=== PATIENT | female | born 1970 | race Caucasian/White ===

== ENCOUNTER 2017-09-01 08:10 | Outpatient (RCR) | payer MEDICAID, SELFPAY ==
[2017-08-31 00:41] VITALS: BP 147/84; PULSE 106; RESP 18; TEMP 37.6; BMI 40.7
[2017-09-01 08:15] VITALS: BP 145/95; PULSE 98; RESP 18; TEMP 37.4; BMI 40.7
--- NOTE | 2017-09-01 23:23 | PN.PCM_ITS ---
Type of Wound Date of Service: 09/01/17 Chief Complaint: Nonhealing MRSA ulcer right breast. History of Wound: Surgery 05/02/17 - Incision and drainage right mastectomy MRSA wound infection. Surgery 04/18/17 - Excisional debridement recurrent nonhealing infected MRSA ulcer right breast and compromised skin graft right nipple with completion mastectomy. Wound care - Silver. Operative culture - MRSA. She was placed on Vancomycin IV and has finished it. Fungal cultures showed Rhodotorula species. She was placed on Diflucan and has finished it. Prealbumin from 05/03/17 was 3.4. She takes nutritional supplementation with protein to help the healing process. Today she denies any fever. Her appetite is good. Progress of Wound: Healed. - Physical Exam Vital Signs Temp Pulse Resp BP 99.3 F H 98 18 145/95 H 09/01/17 08:15 09/01/17 08:15 09/01/17 08:15 09/01/17 08:15 General: Alert, Oriented x3 HEENT: PERRLA, EOMI Neck: Supple Lungs: Clear to auscultation Cardiovascular: Regular rate, Regular Rhythm Abdomen: Soft, Non-Distended Skin: Ulcer/ Wound - right breast MRSA ulcer has healed. Has disproportion of reconstructed breasts. Left breast is soft without masses. Wound Measurements and Assessment JEFFERY - Nurse 1 - General Ulcer Measurement Start: 09/01/17 08:14 Freq: Status: Active Protocol: Activity Type Activity Date Activity User E-Sign Co-Sign Detail Recorded Client Recorded Date Recorded By Document 09/01/17 08:15 [id number] 09/01/17 08:17 09/01/17 08:15 Wound Center Nurse 1 [Ulcer Assessment Protocol: JEFFERY.WD.LOC] #1 Right Breast -Combined with other wound No -Current Size (cm) - Length 0 -Current Size (cm) - Width 0 -Current Size (cm) - Depth 0 -Total Square Cm 0 -Date of Last Picture (Recall this 09/01/17 field) -Photo Taken Yes -Epithelialization Large 67-100% -Tunneling No -Undermining/Tunneling No -Circular Undermining No -Classification - Thickness Full Thickness without Exposed Support Structure -Exudate Amt None Present (0 %) -Wound Margin Fibrotic Scar, Thickened Scar -Granulation Amt Large (67-100%) -Granulation Quality [place] -Slough/Fibrin No -Necrosis Amt None Present (0 %) -Structure Exposed None/Limited to Skin Breakdown -Texture (Yovana-wound Skin Appearance) Scarring -Moisture (Yovana-wound Skin Appearance Dry/Scaly ) -Color (Yovana-wound Skin Appearance) No Abnormality -Temperature (Yovana-wound Skin No Abnormality Appearance) (Pt Warm) -Tenderness on Palpation (Yovana-wound No Skin Appearance) -Ulcer Cleansing Rinsed/ Irrigated with Saline -Foul Odor after Cleansing No -Anesthetic Used 5% Lidocaine Gel [Edema Assessment] -Lower Limb Edema Present No - Nurse 2 - General Ulcer Notes Start: 09/01/17 08:14 Freq: Status: Active Protocol: Activity Type Activity Date Activity User E-Sign Co-Sign Detail Recorded Client Recorded Date Recorded By Document 09/01/17 08:35 [id number] 09/01/17 08:36 09/01/17 08:35 Wound Center Nurse 2 [Procedure/Treatment] #1 Right Breast -Correct Patient No -Correct Side, Site, Position No -Correct Procedure No -Procedure Performed No [See Physician Procedure note for Specifics] Pain Scale: 0-10 Numeric [Pain] -Is Patient Pain Free? Yes Lymphatic: - - no axillary adenopathy. Neurological: Cranial nerves II-XII grossly intact Psych/Mental Status: Normal Affect, Appropriate Debridement Note Post-Debridement Measurements/Treatment WC - Nurse 2 - General Ulcer Notes Start: 09/01/17 08:14 Freq: Status: Active Protocol: Activity Type Activity Date Activity User E-Sign Co-Sign Detail Recorded Client Recorded Date Recorded By Document 09/01/17 08:35 [id number] 09/01/17 08:36 09/01/17 08:35 Wound Center Nurse 2 #1 Right Breast -Correct Patient No -Correct Side, Site, Position No -Correct Procedure No -Procedure Performed No Pain Scale: 0-10 Numeric Is Patient Pain Free? Yes Wound debrided: #1 Right breast. Laterality: Right Wound Grade/Stage: 2. No debridement was completed today - The ulcer has healed. Assessment/Plan Assessment: 1. Recurrent MRSA ulcer right breast, healed. 2. Acquired absence right breast. 3. Recurrent infections bilateral breasts. 4. Disproportion reconstructed breasts. 5. Former smoker. 6. MRSA. Plan: The right breast MRSA ulcer has healed. The Vancomycin for MRSA has been stopped. She has finished the Diflucan for the fungal culture showing Rhodotorula species. Prealbumin from 05/03/17 was very low at 3.4. Continue nutritional supplementation with protein to help the healing process. There is no need for a skin graft at this time as the MRSA ulcer has healed. At some point, would like to proceed with further breast reconstruction with placement of a saline tissue business continuity planner on the right. This would then be followed by removal of the business continuity planner with replacement cohesive gel implant as a second procedure after expansion has been completed. Would treat perioperatively and postoperatively with Vancomycin. Since this would entail placement of a foreign body, I would like to make sure her risk of wound healing problems has been minimized. Would consider proceeding with the breast reconstruction surgery in the Spring at the earliest. Ideally I would like to wait 6 months. She is discharged from the Wound Center at this time. Followup office one month to further discuss timing of further breast reconstruction surgery. Patient understands, that if further wound healing develops and further infection develops after further breast reconstruction surgery, then the foreign body business continuity planner and/or implant would need to be removed.
== END 2017-09-28 23:59 ==
LOC: WC 08:10
PROVIDERS: Family Provider Student in an Organized Health Care Education/Training Program; PCP Student in an Organized Health Care Education/Training Program; Visit Provider Surgery
DX: N65.1 Disproportion of reconstructed breast (principal); Z86.14 Personal history of Methicillin resistant Staphylococcus aureus infection; Z87.891 Personal history of nicotine dependence
CPT/HCPCS: 99212; G0463

== ENCOUNTER 2017-12-17 21:39 | Observation (INO) | payer MEDICAID, SELFPAY ==
[2017-12-15 13:25] LABS: Hematocrit 41.4 % (37-47); Hemoglobin 13.1 g/dl (12.0-15.0); Mean Corp Hgb Conc 31.6 g/gl (32-36); Mean Corpuscular Hgb 31.2 pg (27.0-32.0); Mean Corpuscular Volume 98.6 fL (81-99); Mean Platelet Vol. 10.3 fl (6.2-12.0); Platelet Count 292 K/mm3 (150-450); RBC Distribution Width CV 15.1 % (11.6-14.6); RBC Distribution Width SD 53.9 fl (35.1-43.9); White Blood Count 7.1 K/mm3 (4.4-11.0)
[2017-12-15 13:27] LABS: Scan Indicated on CBC? Y/N NO
[2017-12-15 13:47] LABS: Anion Gap 6 (5-15); BUN 10 mg/dL (7-18); BUN/Creat Ratio 13.8 RATIO (10-20); Calcium,Total 8.6 mg/dL (8.5-10.1); Chloride 103 mmol/L (98-107); Creatinine, Serum 0.72 mg/dL (0.55-1.02); EST Glomerular Filtration Rate 92 mL/min (>60); Est Glom Filt Rate - Afr Amer 112 mL/min (>60); Glucose 100 mg/dL (74-106); Potassium 4.1 mmol/L (3.5-5.1); Prealbumin 34.8 mg/dL (20.0-40.0); Sodium Level 140 mmol/L (136-145); Thyroid Stim Hormone (TSH) 1.25 uIU/mL (0.358-3.74)
--- NOTE | 2017-12-15 22:00 | HP.PCM_ITS ---
History and Physical Date of Admission: 12/16/17 HISTORY OF PRESENT ILLNESS 47 year old woman comes in today for further evaluation breast reconstruction after undergoing completion mastectomy right breast in 04/14. She has a history of recurrent breast infections bilaterally. Most recently she had developed MRSA in the right breast. She has had multiple operative drainage procedures both before and after her bilateral breast reduction mammaplasty in 10/15. She denies fever. Her persistent scar pain in the right mastectomy incision area has improved. She denies any trauma. She is anxious to proceed with further breast reconstruction so she can then concentrate on getting back to work. PAST MEDICAL HISTORY: Grave's disease, s/p thyroidectomy complete, 11/2001 hypothyroidism 2001 Ovarian cyst HTN Metabolic syndrome hypertriglyceridemia Obesity Seasonal allergy Breast lump/cyst Anxiety depression Recurrent infected ulcer left breast abscess right breast anemia compromised bilateral breast reduction nipple grafts nonhealing surgical wound right lateral breast and right medial breast and Tzone right breast recurrent infected nonhealing MRSA ulcer right breast MRSA Acquired absence right breast Disproportion reconstructed breasts PAST SURGICAL HISTORY: complete hysterectomy 02/2007 benign reason (ovarian cyst, and dysfunctional uterine bleeding), on HRT for one year after hysterectomy ligation fallopian tube - 2000 complete thyroidectomy due to grave's disease 11/2001 x 2 09/1998, 01/2001 tonsillectomy 12/2003 Gastric bypass due to severe obesity 04/10/10 [place] 158lbs loss. Incisional hernia repair 07/03/10 panniculectomy 04/2013 hernia repair with mesh - 2014 incision and drainage breast abscess - 04/12 and 08/13 surgical preparation left breast with mastotomy, and incision and drainage and excisional debridement recurrent left breast infection ulcer with 3 cm partial secondary wound closure - 11/21/15 excisional debridement nonhealing recurrent infected ulcer left breast at medial periareolar area with complex secondary wound closure - 12/28/15 excisional debridement nonhealing recurrent infected ulcer left breast at medial periareolar area with complex secondary wound closure - 04/04/16 mastotomy right breast with incision and drainage abscess and excision with partial mastectomy - 06/07/16 Bilateral breast reduction mammaplasty with bilateral free nipple graft reconstruction - 10/01/16 Surgical preparation revision right breast reconstruction with excisional debridement nonhealing surgical wounds lateral aspect and medial aspect with secondary wound closure and excisional debridement compromised graft ulceration nipple area and nonhealing surgical wound Tzone area with FTSG from right lateral breast (25 cm2) - 11/21/16 Surgical preparation right breast with incison and drainage and excisional debridement nonhealing infected nipple graft ulcer (63 cm2) - 01/10/17 Excisional debridement recurrent nonhealing infected MRSA ulcer right breast and compromised skin graft right nipple with completion mastectomy - 04/18/17 Incision and drainage right mastectomy MRSA wound infection - 05/02/17 MEDICATIONS: Pamelor. MVI. Synthroid. Vitamin B12. Celexa. Vitamin D3. Wellbutrin. Vitamin E. Iron supplements. B Complex with Vitamin C. ALLERGIES: Codeine. Penicillin. NSAID's. FAMILY HISTORY: Father (biol.) - Has Family History of Hypertension PGM - Has Family History of Diabetes PGM - Has Family History of Heart Disease Mother (biol.) - Has Family History of Asthma Brother (full) - Has Family History of Asthma Father (biol.) - Has Family History of Depression negative for breast cancer. Heart disease. Thyroid cancer. Parkinson's disease. SOCIAL HISTORY: Patient was smoking up to 09/30-1ppd x 20 years. She has recently quit. Alcohol Use - no Drug Use - no Regular Exercise - no single, but live with partner for 12 years, have two children together, one son, one girl age 11 and 9, son has Asberger patient does not use aspirin. patient does not use ibuprofen. REVIEW OF SYSTEMS: General - Denies fever, fatigue and weakness. Had 150 lb weight loss after gastric bypass in 2009. Eyes - Denies eye pain. ENT - Denies nasal congestion and sore throat. Had thyroidectomy. Had tonsillectomy. CV - Denies chest pain or discomfort, fatigue, lightheadedness and shortness of breath with exertion. Resp - Denies cough and shortness of breath. Patient is a former smoker. GI - Denies nausea, vomiting, diarrhea and constipation. Gastric bypass due to severe obesity 158lbs loss. - Denies blood in urine and urinary frequency. Had hysterectomy MS - Complains of back pain. Denies joint pain, stiffness, muscle weakness and arthritis. Derm - Denies suspicious lesions and skin cancer. Neuro - Denies headaches and numbness. Psych - Complains of anxiety and depression. Endo - Denies excessive urination and excessive thirst. Has had recurrent breast infections. Heme - Denies bleeding and abnormal bruising. PHYSICAL EXAMINATION: General: well developed, well nourished, in no acute distress. Bra size was 42 D prior to the breast reduction. Head: normocephalic and atraumatic. Eyes: PERRL/EOM intact, conjunctiva and sclera clear. Neck: no masses, thyromegaly, or abnormal cervical nodes. Breasts: Left breast is well healed with vertical and horizontal incisions. Good shape and contour left breast. Right breast mastectomy incision healed. No clinical evidence of infection. Lungs: clear bilaterally to auscultation. Heart: regular rate and rhythm. Msk: no bony tenderness. Pulses: pulses normal in all 4 extremities. Extremities: no clubbing, cyanosis, edema, or deformity noted with normal full range of motion of all joints. Neurologic: cranial nerves II-XII grossly intact. Skin: no rashes. Cervical Nodes: no significant adenopathy. Axillary Nodes: no significant adenopathy. Psych: alert and cooperative; normal mood and affect; normal attention span and concentration. ASSESSMENT 1. Recurrent infections bilateral breasts. 2. Bilateral macromastia s/p breast reduction mammaplasty. 3. s/p completion mastectomy right breast. 4. Acquired absence right breast. 4. Disproportion reconstructed breasts. 5. Former smoker. 6. MRSA. PLAN Her recent MRSA ulcer right breast remains healed. She comes in today for continued discussion of her breast reconstruction options. She is interested in a saline tissue intervention analyst followed by replacement cohesive gel implant. Autogenous reconstruction with the TRAM flap was discussed. The quantity is there for reconstruction of the breast. However, the quality is suboptimal which can be seen in patients with gastric bypass surgery. There is looseness between the skin and subcutaneous tissue which increases risk of wound healing problems because the perforators to the skin are not ideal. To improve the perforators to the skin, a delay procedure could be performed or she could be evaluated at a tertiary center for microvascular free tissue transfer breast reconstruction. She is interested in staying local. She is looking for the reconstruction that has a quicker recovery since she would like to go back to work in a timely fashion. So she has decided on proceeding with placement of a saline tissue intervention analyst at this time. She understands that with her history of recurrent infections, the foreign body implant may become infected. Hopefully by proceeding with the completion mastectomy, the recurrent infections should be resolved. However if recurrent infections persist and the foreign body implant is removed , she will then consider autogenous breast reconstruction options at that time. She continues to show good healing mastectomy scar right breast with no further evidence of infection, and I told the patient that I will proceed with the saline tissue intervention analyst next month because of her recent MRSA infection. Her MRSA ulcer right breast had healed in August. Ideally I would like to wait 6 months to allow the swelling to subside and to make sure recurrent infections don't develop. Since she is anxious to get back into the work force, I told her I can consider the surgery in 3 months instead. Since the mastectomy scar is stable with no evidence of further infection, I will proceed next month. Patient was in agreement. Surgery will be done under general anesthesia with a surgical observation overnight stay in the hospital. Because of her history of MRSA, I will culture the wound at the time of surgery. I will treat with Vancomycin and will place a PICC line for extended antibiotic usage because of her extensive history of breast infections. After surgery, if there is compromise with healing of the breast flaps, she can continue her HBO treatments. The patient was informed of the risks and complications of the procedure including alternatives to surgery. These were discussed with the patient personally. The patient voices understanding and wishes to proceed. Some of the risks and complications were included in a form from the [employer]. Will check a Prealbumin preoperatively. If it is quite low, I would consider postponing the surgery for an additional 1-2 months until her nutrition is maximized. Followup after her surgery.
[2017-12-16] VITALS (10 sets, daily range): BP systolic 115–158; BP diastolic 46–84; PULSE 85–97; RESP 16–18; TEMP 36.4–37.1; O2SAT 95–98; BMI 44.6; BMI 44.4
--- NOTE | 2017-12-16 | BRBX_PTH ---
PATIENT: ROBLES CARRASQUILLO LOC: MS2 U#:[id number] AGE/SX: 47/F ROOM: [facility] [place] RE12/17/[address]: Dr. Sean Stevenson MD : 1970 BED: 1 DIS: 12/18/2017 SPEC #: [id number] RECD: 12/16/17 14:57 STATUS: HAMIDA RECadence #: [id number] ROES: 12/16/17 00:[address]: Sean Stevenson DEPT: SURGICAL PATHOLOGY RECD BY: Kit Babcock ENTERED: 12/16/17 14:58 SP TYPE: BREAST BX OTHR DR: Dr. Eduardo Peters DO Tissues: Right breast, NOS Procedures: Surgery Specimen Level IV HEADER OPERATION: Right breast reconstruction, delayed first stage, placement PRE-OP DIAGNOSIS: Acquired absence right breast, S/P completion mastectomy right breast TISSUE SUBMITTED: Right breast tissue MICROSCOPIC DIAGNOSIS Right breast tissue, excision: Dermal fibrosis with mild chronic inflammation consistent with scar. Focal intradermal inclusion cyst. No evidence of malignancy. AM:latha 12/17/17 MICROSCOPIC DESCRIPTION Slides are reviewed. GROSS DESCRIPTION Received in fixative is one container labeled with the patient's name and designated right breast tissue. The specimen consists of a piece of skin with underlying tissue measuring 17 x 2.5 cm and up to 3 cm in length. The skin surface shows focal scar tissue. Serial sections do not reveal any mass lesion. Red Cap sections are submitted in four cassettes. / JOHN:latha 12/16/17 TC:3 CPT: 74845
--- NOTE | 2017-12-16 12:44 | PCM.IMDPSTOP ---
Immediate Post-Op Note Date of Procedure: 12/16/17 Primary Surgeon/Physician: Sean Stevenson airplane first officer: Bubba Ramos. Pre-Operative Diagnosis: 1. Recurrent infections bilateral breasts. 2. s/p completion mastectomy right breast. 3. Acquired absence right breast. 4. Disproportion reconstructed breasts. 5. Former smoker. 6. MRSA. Post-Operative Diagnosis: Same. Surgery/Procedure Performed:: 1st stage delayed right breast reconstruction with placement of submuscular saline tissue advertisement distributor (800 ml) and placement DermACELL decellularized dermis graft (160 cm2). Description of Surgical Findings:: 47 year old woman comes in today for further evaluation breast reconstruction after undergoing completion mastectomy right breast in 04/14. She has a history of recurrent breast infections bilaterally. Most recently she had developed MRSA in the right breast. She has had multiple operative drainage procedures both before and after her bilateral breast reduction mammaplasty in 10/15. She denies fever. Her persistent scar pain in the right mastectomy incision area has improved. She denies any trauma. She is anxious to proceed with further breast reconstruction so she can then concentrate on getting back to work. Today the patient underwent 1st stage delayed right breast reconstruction with placement of submuscular saline tissue advertisement distributor (800 ml) and placement DermACELL decellularized dermis graft (160 cm2). IV Fluids - 900 ml. Urine Output - 250 ml. I used [place] CPX4 with Suture Tabs, Medium Height, Breast Tissue Transcript Clerk, Textured, Integral Injection Dome (800 ml). Reference Number - [id number]. Lot Number - [id number]. Serial Number - [id number]. Expiration - December 22, 2020. I used DermACELL Decellularized Dermis Graft, (8 x 20 cm, 160 cm2). ID Number - [id number]. Code Number - [id number]. Expiration - June 14, 2021. I used Kiya absorbable hemostat. Reference Number - [id number]. Lot Number - [id number]. Expiration - July 26, 2022. Estimated Blood Loss: 150 ml. Specimen's removed: 1. Right breast tissue to Pathology and Microbiology. 2. MRSA by DNA PCR swab right breast. Drains: Elijah x 2. Type of Anesthesia:: General - Admit VTE Documentation VTE Present on Admission: No VTE Mechan Device Prophylaxis: SCD's VTE Pharm Prophylaxis ordered?: Yes
--- NOTE | 2017-12-16 12:51 | OP.PN_ITS ---
Immediate Post-Op Note Date of Procedure: 12/16/17 Primary Surgeon/Physician: Sean Stevenson distributor operator: Bubba Ramos. Pre-Operative Diagnosis: 1. Recurrent infections bilateral breasts. 2. s/p completion mastectomy right breast. 3. Acquired absence right breast. 4. Disproportion reconstructed breasts. 5. Former smoker. 6. MRSA. Post-Operative Diagnosis: Same. Surgery/Procedure Performed:: 1st stage delayed right breast reconstruction with placement of submuscular saline tissue rn travel (800 ml) and placement DermACELL decellularized dermis graft (160 cm2). Description of Surgical Findings:: 47 year old woman comes in today for further evaluation breast reconstruction after undergoing completion mastectomy right breast in 04/14. She has a history of recurrent breast infections bilaterally. Most recently she had developed MRSA in the right breast. She has had multiple operative drainage procedures both before and after her bilateral breast reduction mammaplasty in 10/15. She denies fever. Her persistent scar pain in the right mastectomy incision area has improved. She denies any trauma. She is anxious to proceed with further breast reconstruction so she can then concentrate on getting back to work. Today the patient underwent 1st stage delayed right breast reconstruction with placement of submuscular saline tissue rn travel (800 ml) and placement DermACELL decellularized dermis graft (160 cm2). IV Fluids - 900 ml. Urine Output - 250 ml. I used [place] CPX4 with Suture Tabs, Medium Height, Breast Tissue Child Day Care Teacher, Textured, Integral Injection Dome (800 ml). Reference Number - [id number]. Lot Number - [id number]. Serial Number - [id number]. Expiration - December 22, 2020. I used DermACELL Decellularized Dermis Graft, (8 x 20 cm, 160 cm2). ID Number - [id number]. Code Number - [id number]. Expiration - June 14, 2021. I used Kiya absorbable hemostat. Reference Number - [id number]. Lot Number - [id number]. Expiration - July 26, 2022. Estimated Blood Loss: 150 ml. Specimen's removed: 1. Right breast tissue to Pathology and Microbiology. 2. MRSA by DNA PCR swab right breast. Drains: Elijah x 2. Type of Anesthesia:: General - Admit VTE Documentation VTE Present on Admission: No VTE Mechan Device Prophylaxis: SCD's VTE Pharm Prophylaxis ordered?: Yes
--- NOTE | 2017-12-16 14:53 | NURSING ---
ensure to be ordered due to patient's wounds- however, pt refusing. states she will drink kiki and take protein powder in food like she typically does when in the hospital.
[2017-12-16] MEDS: diazePAM 5 MG Tablet PO ×2 (15:09→20:11)
[2017-12-16] MEDS: HYDROmorphone 1 MG/ML Syringe IV ×2 (15:09→18:40)
[2017-12-16] MEDS: Lactated Ringers 1,000 ML 60 ML IV (15:23)
[2017-12-16 15:25] LABS: M R Staph aureus DNA By PCR Negative (Negative); Probe Check PASS; Specimen Processing Control PASS; Staph aureus DNA By PCR NEGATIVE (Negative)
--- NOTE | 2017-12-16 16:30 | PCM.RX.CS ---
Consult Pharmacy has been consulted to manage selected antiobiotic: Vancomycin Type of Consult: New start Suspected Infection: Skin/Soft tissue Prior Doses of Antibiotics Received/Current Regimen: Vancomycin 1000mg x1 preop administered 12/16/17 at 0955 Labs: Sodium 140 mmol/L (136-145) 12/15/17 12:08 Potassium 4.1 mmol/L (3.5-5.1) 12/15/17 12:08 Chloride 103 mmol/L (98-107) 12/15/17 12:08 Carbon Dioxide 31.0 mmol/L (21.0-32.0) 12/15/17 12:08 Anion Gap 6 (5-15) 12/15/17 12:08 BUN 10 mg/dL (7-18) 12/15/17 12:08 Creatinine 0.72 mg/dL (0.55-1.02) 12/15/17 12:08 Est GFR (MDRD) Af Amer 112 mL/min (>60) 12/15/17 12:08 Est GFR (MDRD) Non-Af 92 mL/min (>60) 12/15/17 12:08 BUN/Creatinine Ratio 13.8 RATIO (10-20) 12/15/17 12:08 Glucose 100 mg/dL (74-106) 12/15/17 12:08 Microbiology: cultures pending Weight used for dosin.6 kg Estimated Creatinine Clearance: 92 ml\min Goal Trough: 10-15 mcg/mL Pharmacy Plan for Drug Dosing: Goal Trough for the pt is 10-15 mcg/ml. Pt dose calculated to be 1500mg every 12h per clinical pharmacology which should give an estimated trough of 11.26 ml/min. Trough will be checked before the 4th dose. Pharmacy Service will continue to monitor and adjust dosing as required. Follow-Up Labs: Trough Vancomycin - 12/18/17 at 0730 Labs to be done on [date and time ordered]: Vanc Trough on 12/18/17 at 0730
--- NOTE | 2017-12-16 16:40 | PHA.PHARE_ITS ---
Consult Pharmacy has been consulted to manage selected antiobiotic: Vancomycin Type of Consult: New start Suspected Infection: Skin/Soft tissue Prior Doses of Antibiotics Received/Current Regimen: Vancomycin 1000mg x1 preop administered 12/16/17 at 0955 Labs: Sodium 140 mmol/L (136-145) 12/15/17 12:08 Potassium 4.1 mmol/L (3.5-5.1) 12/15/17 12:08 Chloride 103 mmol/L (98-107) 12/15/17 12:08 Carbon Dioxide 31.0 mmol/L (21.0-32.0) 12/15/17 12:08 Anion Gap 6 (5-15) 12/15/17 12:08 BUN 10 mg/dL (7-18) 12/15/17 12:08 Creatinine 0.72 mg/dL (0.55-1.02) 12/15/17 12:08 Est GFR (MDRD) Af Amer 112 mL/min (>60) 12/15/17 12:08 Est GFR (MDRD) Non-Af 92 mL/min (>60) 12/15/17 12:08 BUN/Creatinine Ratio 13.8 RATIO (10-20) 12/15/17 12:08 Glucose 100 mg/dL (74-106) 12/15/17 12:08 Microbiology: cultures pending Weight used for dosin.6 kg Estimated Creatinine Clearance: 92 ml\min Goal Trough: 10-15 mcg/mL Pharmacy Plan for Drug Dosing: Goal Trough for the pt is 10-15 mcg/ml. Pt dose calculated to be 1500mg every 12h per clinical pharmacology which should give an estimated trough of 11.26 ml/ min. Trough will be checked before the 4th dose. Pharmacy Service will continue to monitor and adjust dosing as required. Follow-Up Labs: Trough Vancomycin - 12/18/17 at 0730 Labs to be done on [date and time ordered]: Vanc Trough on 12/18/17 at 0730
[2017-12-16] MEDS: oxyCODONE 5 MG Tablet 10 MG PO ×2 (17:03→21:53)
[2017-12-16] MEDS: Calcium Carb/Vitamin D 1 TABLET Tablet PO (17:16)
--- NOTE | 2017-12-16 19:54 | PCM.OPRPT ---
Report of Operation Date of Procedure: 12/16/17 Pre-Operative Diagnosis: 1. Recurrent infections bilateral breasts. 2. s/p completion mastectomy right breast. 3. Acquired absence right breast. 4. Disproportion reconstructed breasts. 5. Former smoker. 6. MRSA. Post-Operative Diagnosis: Same. Surgery/Procedure Performed:: 1st stage delayed right breast reconstruction with placement of submuscular saline tissue turning sander operator (800 ml) and placement DermACELL decellularized dermis graft (160 cm2). Description of Surgical Findings:: 47 year old woman comes in today for further evaluation breast reconstruction after undergoing completion mastectomy right breast in 04/14. She has a history of recurrent breast infections bilaterally. Most recently she had developed MRSA in the right breast. She has had multiple operative drainage procedures both before and after her bilateral breast reduction mammaplasty in 10/15. She denies fever. Her persistent scar pain in the right mastectomy incision area has improved. She denies any trauma. She is anxious to proceed with further breast reconstruction so she can then concentrate on getting back to work. The patient was informed of the risks and complications of the procedure including alternatives to surgery. These were discussed with the patient personally. The patient voices understanding and wishes to proceed. Some of the risks and complications were included in a form from the [place] [employer]. IV Fluids - 900 ml. Urine Output - 250 ml. I used Aurora CPX4 with Suture Tabs, Medium Height, Breast Tissue Cyber Threat Analyst, Textured, Integral Injection Dome (800 ml). Reference Number - [id number]. Lot Number - [id number]. Serial Number - [id number]. Expiration - December 22, 2020. I used DermACELL Decellularized Dermis Graft, (8 x 20 cm, 160 cm2). ID Number - [id number]. Code Number - [id number]. Expiration - June 14, 2021. I used Kiya absorbable hemostat. Reference Number - [id number]. Lot Number - [id number]. Expiration - July 26, 2022. lead installer: Bubba Ramos. Type of Anesthesia:: General Specimen's removed: 1. Right breast tissue to Pathology and Microbiology. 2. MRSA by DNA PCR swab right breast. Drains: Elijah x 2. Estimated Blood Loss (mL): 150 ml. Fluids Replaced: 1150 ml (IV Fluids 900 ml, Urine Output 250 ml). Description of Procedure: Patient was seen in the preop area and in the sitting position, preop markings were made. The sternal midline was marked down to the umbilicus. The inframammary folds were marked bilaterally. The midclavicular lines were marked down to the inframammary folds. Patient was then placed in supine position and taken to OR and placed under general anesthesia. Her breasts were prepped and draped in the usual fashion. SCD's were placed for DVT prophylaxis. Perioperative antibiotics were given intravenously. A hartman catheter was then placed. Using xylocaine with epinephrine, the right mastectomy scar was infiltrated. After waiting 5 minutes for the anesthetic to take effect, I excised the scar in a horizontal elliptical fashion down to the pectoralis muscle. There was a lot of scar tissue involving the inferior aspect of the pectoralis muscle and was also excised. Some of this tissue was sent to Pathology for analysis to rule out carcinoma. Some of this tissue was sent to Microbiology for culture. An MRSA by DNA PCR swab of the right breast was also sent. I then elevated the pectoralis muscle inferiorly up to the clavicle superiorly and to the sternal midline medially. Some of the inferomedial pectoralis muscle fibers were incised to enlarge the pocket. I measured the submuscular pocket and felt an 800 ml Aurora saline tissue turning sander operator would fit the pocket adequately. The air was removed from the turning sander operator and then filled with 30 ml saline. I tested the turning sander operator for leaks for which there was none, and the saline was removed. The breast pocket was infiltrated with saline and hemostasis was obtained with electrocautery. I sprayed some Kiya absorbable hemostat into the submuscular pocket. I placed 2 size 15 Elijah drains through separate stab incisions laterally and secured to the skin with 3-0 Nylon sutures. One drain was placed in the submuscular position and one drain was placed in the mastectomy position. The turning sander operator was then placed in the submuscular position and secured to the chest wall through the suture tabs with 3-0 Vicryl interrupted sutures. I then placed DermACELL decellularized dermis graft into the wound and secured to the inferior aspect of the pectoralis muscle over the inferior aspect of the turning sander operator to the chest wall and secured with 3-0 Vicryl interrupted sutures. Care was taken to place a malleable to protect the turning sander operator during the placement of the sutures. The size of the DermACELL decellularized dermis graft was 8 x 20 cm or 160 cm2. I sprayed Kiya absorbable hemostat into the rest of the mastectomy wound. I then closed the mastectomy incision with 3-0 Vicryl simple running suture for the underlying fascia. The deep dermis and subcutaneous tissue was approximated with 3-0 Monocryl interrupted sutures. The skin was approximated with 3-0 V lock unidirectional barbed running subcuticular suture. This was then followed with Histoacryl skin tissue adhesive. Kerlix gauze was applied to the incision followed by a chest wall binder. She tolerated the procedure well and was sent to PACU in satisfactory condition. She will be sent upstairs for a surgical observation overnight stay in the hospital. A PICC line will be placed tomorrow for continuation of her Vancomycin after discharge because of her history of MRSA. She will keep her head elevated during her initial postop period. She will have her drains removed in 10-14 days. Grafts/Implants Used: Aurora saline tissue turning sander operator and DermACELL decellularized dermis graft. - Complications None. - Admit VTE Documentation VTE Present on Admission: No VTE Mechan Device Prophylaxis: SCD's VTE Pharm Prophylaxis ordered?: Yes Code Visit Surgery Charges CPT - 34800 ICD-10 - N61.1, Z90.11, N65.1, Z86.14, Z87.891 56598 N61.1, Z90.11, N65.1, Z86.14, Z87.891
[2017-12-16] MEDS: Acetaminophen 500 MG Tablet 1000 MG PO (20:11)
[2017-12-16] MEDS: Magnesium Oxide 400 MG Tablet PO (21:54)
[2017-12-16] MEDS: Ascorbic Acid 500 MG Tablet 1000 MG PO (21:54)
[2017-12-16] MEDS: Nortriptyline 25 MG Capsule 50 MG PO (21:54)
[2017-12-16] MEDS: Zolpidem Tartrate 5 MG Tablet 10 MG PO (21:54)
[2017-12-16] MEDS: Docusate Sodium 100 MG Capsule PO (21:54)
[2017-12-16] MEDS: Iron Polysaccharide Complex 150 MG CAPSULE PO (21:55)
[2017-12-17 02:30] VITALS: BP 134/79; PULSE 89; RESP 17; TEMP 36.6; O2SAT 96
[2017-12-17] MEDS: oxyCODONE 5 MG Tablet 10 MG PO ×5 (02:30→23:00)
[2017-12-17] MEDS: Enoxaparin 40 MG/0.4 ML Syringe SC (05:23)
[2017-12-17] MEDS: Levothyroxine 175 MCG Tablet PO (05:23)
[2017-12-17] MEDS: HYDROmorphone 1 MG/ML Syringe IV ×3 (05:27→20:17)
[2017-12-17 06:00] LABS: Hematocrit 39.9 % (37-47); Mean Corp Hgb Conc 30.1 g/gl (32-36); Mean Corpuscular Hgb 30.1 pg (27.0-32.0); Mean Platelet Vol. 10.1 fl (6.2-12.0); Platelet Count 237 K/mm3 (150-450); RBC Distribution Width CV 15.5 % (11.6-14.6); RBC Distribution Width SD 56.1 fl (35.1-43.9); Red Blood Count 3.99 M/mm3 (4.2-5.4); White Blood Count 7.8 K/mm3 (4.4-11.0)
[2017-12-17 06:05] LABS: Scan Indicated on CBC? Y/N NO
[2017-12-17 06:25] LABS: Anion Gap 6 (5-15); BUN 11 mg/dL (7-18); BUN/Creat Ratio 19.6 RATIO (10-20); Calcium,Total 8.3 mg/dL (8.5-10.1); Chloride 102 mmol/L (98-107); Creatinine, Serum 0.56 mg/dL (0.55-1.02); EST Glomerular Filtration Rate 123 mL/min (>60); Est Glom Filt Rate - Afr Amer 149 mL/min (>60); Estimated Creatinine Clearance 118.76 ml/min; Glucose 101 mg/dL (74-106); Sodium Level 139 mmol/L (136-145)
[2017-12-17] MEDS: Calcium Carb/Vitamin D 1 TABLET Tablet PO ×2 (08:09→17:14)
[2017-12-17] MEDS: Multivitamins,Ther W-Minerals Tablet 1 TABLET PO (08:09)
[2017-12-17] MEDS: Lactated Ringers 1,000 ML 60 ML IV (08:10)
[2017-12-17 08:20] VITALS: BP 112/61; PULSE 80; RESP 18; TEMP 37.1; O2SAT 96
[2017-12-17] MEDS: FLUoxetine 20 MG Capsule 40 MG PO (08:28)
[2017-12-17] MEDS: Ascorbic Acid 500 MG Tablet 1000 MG PO ×2 (08:28→21:31)
[2017-12-17] MEDS: buPROPion (XL) 150 MG TABLET.XL 450 MG PO (08:29)
[2017-12-17] MEDS: Docusate Sodium 100 MG Capsule PO ×2 (08:29→21:30)
[2017-12-17] MEDS: Iron Polysaccharide Complex 150 MG CAPSULE PO ×2 (08:30→21:30)
[2017-12-17] MEDS: diazePAM 5 MG Tablet PO ×2 (11:12→21:30)
[2017-12-17 14:30] VITALS: BP 124/58; PULSE 99; RESP 18; TEMP 36.6; O2SAT 99
[2017-12-17 20:10] VITALS: BP 121/64; PULSE 88; RESP 18; TEMP 37; O2SAT 98
[2017-12-17] MEDS: Magnesium Oxide 400 MG Tablet PO (21:30)
[2017-12-17] MEDS: Nortriptyline 25 MG Capsule 50 MG PO (21:31)
--- NOTE | 2017-12-17 21:55 | OP.PCM_ITS ---
Report of Operation Date of Procedure: 12/16/17 Pre-Operative Diagnosis: 1. Recurrent infections bilateral breasts. 2. s/p completion mastectomy right breast. 3. Acquired absence right breast. 4. Disproportion reconstructed breasts. 5. Former smoker. 6. MRSA. Post-Operative Diagnosis: Same. Surgery/Procedure Performed:: 1st stage delayed right breast reconstruction with placement of submuscular saline tissue carving machine operator (800 ml) and placement DermACELL decellularized dermis graft (160 cm2). Description of Surgical Findings:: 47 year old woman comes in today for further evaluation breast reconstruction after undergoing completion mastectomy right breast in 04/14. She has a history of recurrent breast infections bilaterally. Most recently she had developed MRSA in the right breast. She has had multiple operative drainage procedures both before and after her bilateral breast reduction mammaplasty in 10/15. She denies fever. Her persistent scar pain in the right mastectomy incision area has improved. She denies any trauma. She is anxious to proceed with further breast reconstruction so she can then concentrate on getting back to work. The patient was informed of the risks and complications of the procedure including alternatives to surgery. These were discussed with the patient personally. The patient voices understanding and wishes to proceed. Some of the risks and complications were included in a form from the [place] [employer]. IV Fluids - 900 ml. Urine Output - 250 ml. I used Windsor CPX4 with Suture Tabs, Medium Height, Breast Tissue Firer Boiler, Textured, Integral Injection Dome (800 ml). Reference Number - [id number]. Lot Number - [id number]. Serial Number - [id number]. Expiration - December 22, 2020. I used DermACELL Decellularized Dermis Graft, (8 x 20 cm, 160 cm2). ID Number - [id number]. Code Number - [id number]. Expiration - June 14, 2021. I used Kiya absorbable hemostat. Reference Number - [id number]. Lot Number - [id number]. Expiration - July 26, 2022. senior microsoft net developer: Bubba Ramos. Type of Anesthesia:: General Specimen's removed: 1. Right breast tissue to Pathology and Microbiology. 2. MRSA by DNA PCR swab right breast. Drains: Elijah x 2. Estimated Blood Loss (mL): 150 ml. Fluids Replaced: 1150 ml (IV Fluids 900 ml, Urine Output 250 ml). Description of Procedure: Patient was seen in the preop area and in the sitting position, preop markings were made. The sternal midline was marked down to the umbilicus. The inframammary folds were marked bilaterally. The midclavicular lines were marked down to the inframammary folds. Patient was then placed in supine position and taken to OR and placed under general anesthesia. Her breasts were prepped and draped in the usual fashion. SCD's were placed for DVT prophylaxis. Perioperative antibiotics were given intravenously. A hartman catheter was then placed. Using xylocaine with epinephrine, the right mastectomy scar was infiltrated. After waiting 5 minutes for the anesthetic to take effect, I excised the scar in a horizontal elliptical fashion down to the pectoralis muscle. There was a lot of scar tissue involving the inferior aspect of the pectoralis muscle and was also excised. Some of this tissue was sent to Pathology for analysis to rule out carcinoma. Some of this tissue was sent to Microbiology for culture. An MRSA by DNA PCR swab of the right breast was also sent. I then elevated the pectoralis muscle inferiorly up to the clavicle superiorly and to the sternal midline medially. Some of the inferomedial pectoralis muscle fibers were incised to enlarge the pocket. I measured the submuscular pocket and felt an 800 ml Windsor saline tissue carving machine operator would fit the pocket adequately. The air was removed from the carving machine operator and then filled with 30 ml saline. I tested the carving machine operator for leaks for which there was none, and the saline was removed. The breast pocket was infiltrated with saline and hemostasis was obtained with electrocautery. I sprayed some Kiya absorbable hemostat into the submuscular pocket. I placed 2 size 15 Elijah drains through separate stab incisions laterally and secured to the skin with 3-0 Nylon sutures. One drain was placed in the submuscular position and one drain was placed in the mastectomy position. The carving machine operator was then placed in the submuscular position and secured to the chest wall through the suture tabs with 3-0 Vicryl interrupted sutures. I then placed DermACELL decellularized dermis graft into the wound and secured to the inferior aspect of the pectoralis muscle over the inferior aspect of the carving machine operator to the chest wall and secured with 3-0 Vicryl interrupted sutures. Care was taken to place a malleable to protect the carving machine operator during the placement of the sutures. The size of the DermACELL decellularized dermis graft was 8 x 20 cm or 160 cm2. I sprayed Kiya absorbable hemostat into the rest of the mastectomy wound. I then closed the mastectomy incision with 3-0 Vicryl simple running suture for the underlying fascia. The deep dermis and subcutaneous tissue was approximated with 3-0 Monocryl interrupted sutures. The skin was approximated with 3-0 V lock unidirectional barbed running subcuticular suture. This was then followed with Histoacryl skin tissue adhesive. Kerlix gauze was applied to the incision followed by a chest wall binder. She tolerated the procedure well and was sent to PACU in satisfactory condition. She will be sent upstairs for a surgical observation overnight stay in the hospital. A PICC line will be placed tomorrow for continuation of her Vancomycin after discharge because of her history of MRSA. She will keep her head elevated during her initial postop period. She will have her drains removed in 10-14 days. Grafts/Implants Used: Windsor saline tissue carving machine operator and DermACELL decellularized dermis graft. - Complications None. - Admit VTE Documentation VTE Present on Admission: No VTE Mechan Device Prophylaxis: SCD's VTE Pharm Prophylaxis ordered?: Yes Code Visit Surgery Charges CPT - 63652 ICD-10 - N61.1, Z90.11, N65.1, Z86.14, Z87.891 01323 N61.1, Z90.11, N65.1, Z86.14, Z87.891
--- NOTE | 2017-12-17 22:00 | PN.SURG_ITS ---
Subjective: Postop #1 Patient complains of incisional pain. PICC line placed today. - Physical Exam General: Alert, Oriented x3 HEENT: PERRLA, EOMI Neck: Supple Lungs: Clear to auscultation Cardiovascular: Regular rate, Regular Rhythm Abdomen: Soft, Non-Distended Skin: Incision - right breast incision is dry and intact. No clinical evidence of hematoma. Lymphatic: - - no axillary adenopathy. Neurological: Cranial nerves II-XII grossly intact Psych/Mental Status: Normal Affect, Appropriate Vital Signs Temp Pulse Resp BP Pulse Ox 98.6 F 88 18 121/64 H 98 12/17/17 20:10 12/17/17 20:10 12/17/17 20:10 12/17/17 20:10 12/17/17 20:10 Oxygen Flow Rate (L/min) 4 Oxygen Delivery Method Room Air Weight: 276 lb 14.409 oz Body Mass Index (BMI) 44.4 Intake and Output for Last 24 Hours 12/15/17 12/16/17 12/17/17 23:59 23:59 23:59 Intake Total 3426 / 3426 6129 / 6129 Output Total 1735 / 1735 5360 / 5360 Balance 1691 / 1691 769 / 769 Drainage 135 ml yesterday. Microbiology Past 72 Hours 12/16/17 Unknown Gram Stain - Final Tissue - Breast Wound Culture - Preliminary No growth-Final to follow Laboratory Tests Past 24 Hrs 12/17/17 12/17/17 05:33 05:33 WBC 7.8 RBC 3.99 L Hgb 12.0 Hct 39.9 MCV 100.0 H MCH 30.1 MCHC 30.1 L RDW 15.5 H RDW Differential 56.1 H Plt Count 237 MPV 10.1 Sodium 139 Potassium 4.0 Chloride 102 Carbon Dioxide 31.0 Anion Gap 6 BUN 11 Creatinine 0.56 Estim Creat Clear Calc 118.76 Est GFR (MDRD) Af Amer 149 Est GFR (MDRD) Non-Af 123 BUN/Creatinine Ratio 19.6 Glucose 101 Calcium 8.3 L Medical Necessity - Tobacco Use Smoking Status: Former smoker Assessment/Plan 1. Recurrent infections bilateral breasts. 2. s/p completion mastectomy right breast. 3. Acquired absence right breast. 4. Disproportion reconstructed breasts. 5. Former smoker. 6. MRSA. 7. s/p 1st stage delayed right breast reconstruction with placement of submuscular saline tissue economic development specialist (800 ml) and placement DermACELL decellularized dermis graft (160 cm2). Incision is dry and intact. Does have some incisional pain. Still needs IV analgesia. With her history of MRSA, a PICC was placed today. Will continue Vancomycin after discharge. Prealbumin was 34.8. Encourage nutritional supplementation with protein to help the healing process. Keep head elevated. Continue lifting restriction and chest wall binder for compression. Will wean to po analgesia for discharge. Anticipate tomorrow.
[2017-12-18 02:30] VITALS: BP 102/56; PULSE 89; RESP 18; TEMP 36.9; O2SAT 94
[2017-12-18] MEDS: oxyCODONE 5 MG Tablet 10 MG PO ×4 (03:53→18:38)
[2017-12-18] MEDS: Lactated Ringers 1,000 ML 60 ML IV (06:29)
[2017-12-18] MEDS: Levothyroxine 175 MCG Tablet PO (06:29)
[2017-12-18] MEDS: Enoxaparin 40 MG/0.4 ML Syringe SC (06:30)
[2017-12-18] MEDS: Acetaminophen 500 MG Tablet 1000 MG PO (06:36)
[2017-12-18] MEDS: diazePAM 5 MG Tablet PO ×2 (06:36→13:48)
[2017-12-18 08:30] VITALS: BP 122/73; PULSE 88; RESP 18; TEMP 36.4; O2SAT 96
[2017-12-18] MEDS: Calcium Carb/Vitamin D 1 TABLET Tablet PO ×2 (08:49→16:41)
[2017-12-18] MEDS: Multivitamins,Ther W-Minerals Tablet 1 TABLET PO (08:49)
[2017-12-18] MEDS: Docusate Sodium 100 MG Capsule PO (08:50)
[2017-12-18] MEDS: Iron Polysaccharide Complex 150 MG CAPSULE PO (08:51)
[2017-12-18] MEDS: Ascorbic Acid 500 MG Tablet 1000 MG PO (08:52)
[2017-12-18] MEDS: buPROPion (XL) 150 MG TABLET.XL 450 MG PO (08:52)
[2017-12-18] MEDS: FLUoxetine 20 MG Capsule 40 MG PO (08:52)
--- NOTE | 2017-12-18 09:34 | PCM.RX.CS ---
Consult Pharmacy has been consulted to manage selected antiobiotic: Vancomycin Type of Consult: Follow-up Suspected Infection: Skin/Soft tissue Labs: Sodium 139 mmol/L (136-145) 12/17/17 05:33 Potassium 4.0 mmol/L (3.5-5.1) 12/17/17 05:33 Chloride 102 mmol/L (98-107) 12/17/17 05:33 Carbon Dioxide 31.0 mmol/L (21.0-32.0) 12/17/17 05:33 Anion Gap 6 (5-15) 12/17/17 05:33 BUN 11 mg/dL (7-18) 12/17/17 05:33 Creatinine 0.56 mg/dL (0.55-1.02) 12/17/17 05:33 Est GFR (MDRD) Af Amer 149 mL/min (>60) 12/17/17 05:33 Est GFR (MDRD) Non-Af 123 mL/min (>60) 12/17/17 05:33 BUN/Creatinine Ratio 19.6 RATIO (10-20) 12/17/17 05:33 Glucose 101 mg/dL (74-106) 12/17/17 05:33 Vancomycin Trough 7.0 ug/mL (5.0-15.0) 12/18/17 07:35 Microbiology: Microbiology 12/16/17 Unknown Tissue - Breast Gram Stain - Final 12/16/17 Unknown Tissue - Breast Wound Culture - Preliminary No growth-Final to follow Weight used for dosin.6 kg Estimated Creatinine Clearance: 105 ML/MIN Goal Trough: 10-15 mcg/mL Pharmacy Plan for Drug Dosing: A trough was drawn 12/18 @0735, which resulted in a value of 7 (drawn 11.5hrs from last dose). Given that our goal trough is 10-15, will adjust patient's regimen to target this goal. PLAN/RECOMMENDATIONS 1. START vancomycin 1.25g IV Q8hrs 2. Trough 12/20/17 @0830 to reassess 3. Pharmacy will continue to monitor renal function, micro data, and troughs. Will make changes as appropriate. Pharmacy Service will continue to monitor and adjust dosing as required. Follow-Up Labs: Trough Vancomycin - 12/20/17 @0830
--- NOTE | 2017-12-18 13:58 | CASEMGMT ---
Addendum entered by Huey Guevara 12/18/17 14:34: Pt updated on IV antibiotic referral. She states she would like to go home tonight. She has assistance @ home, has done IV antibiotics in pastl NERY MEEKS recommended pt stay until Home Health can be arranged but pt is insistent she go home even if [facility] cannot see her until tomorrow or friday. -NERY MEEKS called to [facility] Grace mello @ , message left asking if IV antibiotic could be delivered this evening. Awaiting response. Dami RN and Karen sanjana nurse updated. Urbano HUYNH RN ACM Original Note: IV antibiotics will be need on dc. Vancomycin 1250 mg IV Q 8 hours. Referral faxed to [facility]. Pt requesting [facility]. Call to Ronna Pool. they are able to accomodate pt, but working on schedule for RN coverage. Pt will need to get am dose in hospital, and attempting to set up HHS for Friday audrey dose. If not able to have RN coverage for friday audrey @ home, pt will need to stay and receive sat am dose @[facility] prior to dc with home health. Urbano NICOLASM
[2017-12-18 14:30] VITALS: BP 123/66; PULSE 94; RESP 18; TEMP 36.8; O2SAT 98
--- NOTE | 2017-12-18 15:56 | CASEMGMT ---
Call received from aung @ [facility]. They have processed the account and can deliver medication tonight. If discharge ordered by Dr. Stevenson, then pt will need Vancomycin dose for 5 pm given prior to dc. Corine Friend from [facility] in with pt and coordinating discharge. [facility] Face to Face will need signed by Dr. Stevesnon and faxed to [facility]. Urbano HUYNH RN ACM
--- NOTE | 2017-12-18 20:24 | PN.SURG_ITS ---
Subjective: Postop #2 Patient is resting comfortably. Tolerating po analgesia. - Physical Exam General: Alert, Oriented x3 HEENT: PERRLA, EOMI Neck: Supple Lungs: Clear to auscultation Cardiovascular: Regular rate, Regular Rhythm Abdomen: Soft, Non-Distended Skin: Incision - right breast incision dry and intact. No clinical evidence of hematoma. Neurological: Cranial nerves II-XII grossly intact Psych/Mental Status: Normal Affect, Appropriate Vital Signs Temp Pulse Resp BP Pulse Ox 98.2 F 94 18 123/66 H 98 12/18/17 14:30 12/18/17 14:30 12/18/17 14:30 12/18/17 14:30 12/18/17 14:30 Oxygen Flow Rate (L/min) 4 Oxygen Delivery Method Room Air Weight: 276 lb 14.409 oz Body Mass Index (BMI) 44.4 Intake and Output for Last 24 Hours 12/16/17 12/17/17 12/18/17 23:59 23:59 23:59 Intake Total 3426 / 3426 6129 / 6129 3715 / 3715 Output Total 1735 / 1735 5360 / 5360 4172 / 4172 Balance 1691 / 1691 769 / 769 -457 / -457 Drainage - 260 ml yesterday. Microbiology Past 72 Hours 12/16/17 Unknown Gram Stain - Final Tissue - Breast Wound Culture - Preliminary No growth-Final to follow Anaerobic Culture - Preliminary No growth in 48 hours. Laboratory Tests Past 24 Hrs 12/18/17 07:35 Vancomycin Trough 7.0 Medical Necessity - Tobacco Use Smoking Status: Former smoker Assessment/Plan 1. Recurrent infections bilateral breasts. 2. s/p completion mastectomy right breast. 3. Acquired absence right breast. 4. Disproportion reconstructed breasts. 5. Former smoker. 6. MRSA. 7. s/p 1st stage delayed right breast reconstruction with placement of submuscular saline tissue filler block inserter remover (800 ml) and placement DermACELL decellularized dermis graft (160 cm2). Incision is dry and intact. Does have some incisional pain. Tolerating po analgesia. With her history of MRSA, a PICC was placed. Will continue Vancomycin after discharge. Prealbumin was 34.8. Encourage nutritional supplementation with protein to help the healing process. Keep head elevated. Continue lifting restriction and chest wall binder for compression. Discharge home today. Continue Vancomycin IV. Weekly labs involving CBC, CMP, ESR, CRP, and Vancomycin Trough. Wrote scripts for Dilaudid for pain (60 tabs) and for Valium for spasm (30 tabs) . Wrote scripts for Phenergan for nausea (30 tabs) and a refill and for Colace for constipation (60 tabs). Followup one week. Will remove the drains in approximately 14 days. Will begin saline tissue expansion in 2-3 weeks.
--- NOTE | 2017-12-18 20:29 | PCM.DC ---
You will use the following diet at home:: No restrictions Discharge Activity: May not drive while taking narcotic pain medications., May Not Shower - until the drains are removed., - - keep head elevated. no heavy lifting. May shower in (days): 14 - may shower when the drains are removed. May resume sexual activity in: 10-14 days Weight Bearing Status: Weight bearing as tolerated Lifting Restrictions: 20 lbs. Keep extremity elevated above heart level: - - elevate head. Call your doctor if your incision/area has: Continuous Slow Oozing, Sudden Increased Bleeding, Increased Pain/ Swelling, Increased Redness, Foul Smelling Discharge, Swelling at the incision site Call your doctor if you observe: Fever of 101 or Higher, Coldness, Increased Pain, Shortness of breath, Chest pain, Calf discomfort, Uncontrolled pain Suture Line Care: - - dry dressings daily. Change Dressing in (Days):: 1 - dry dressings daily. Cleanse incision/area with: - - may get incision wet in the shower after drains are removed. Drain: Suction - khalida drain x 2 to bulb suction. empty and record output daily. Additional Instructions: Patient to go to the lab at [facility] qMonday for 6 weeks to get CBC, CMP, ESR, CRP, and Vancomycin Trough. Pharmacy to dose. Please fax results also to [phone]. Allergies/Adverse Reactions: Allergies codeine Allergy (Verified 12/03/17 08:20) Rash Penicillins Allergy (Verified 12/03/17 08:20) Rash NSAIDS (Non-Steroidal Anti-Inflamma Adverse Reaction (Verified 12/03/17 08:20) Other UNABLE TO TAKE DUE TO WEIGHT LOSS SURGERY Medications to take at Discharge Levothyroxine [Synthroid] 175 mcg PO DAILY 03/19/14 Calcium Carbonate/Vitamin D3 [Calcium 600-Vit D3 400 Caplet] 1 ea PO BID 08/15/15 Cholecalciferol (VIT D3) [Vitamin D3] 2,000 unit PO DAILY 08/15/15 Multivitamins,Ther W-Minerals [Multivitamin With Minerals] 1 tab PO DAILY 08/15/15 Nortriptyline HCl [Pamelor] 50 mg PO QHS 04/03/16 buPROPion XL [Wellbutrin Xl] 450 mg PO DAILY 04/18/17 Iron Polysaccharide Complex [Ferrex 150] 150 mg PO BID 05/01/17 Acetaminophen [Tylenol] 1,000 mg PO Q8H PRN #1 tab 05/06/17 Ascorbic Acid [Vitamin C] 1,000 mg PO BID 12/03/17 Fluoxetine HCl [Prozac] 40 mg PO DAILY 12/03/17 Magnesium 250 mg PO QHS 12/03/17 Zolpidem Tartrate [Ambien] 10 mg PO QHS 12/03/17 Diazepam [Valium] 5 mg PO 4X/DAY PRN PRN #30 tab 12/18/17 Docusate Sodium [Colace] 100 mg PO BID #60 cap 12/18/17 HYDROmorphone tablet [Dilaudid] 2 - 4 mg PO 4X/DAY PRN PRN 7 Days #60 tab 12/18/17 Vancomycin 1,250 mg IV Q8H 39 Days #117 vial 12/18/17 proMETHazine tablet [Phenergan tablet] 25 mg PO 4X/DAY PRN PRN #30 tab 12/18/17 The following prescriptions were given: Diazepam [Valium] 5 mg PO 4X/DAY PRN PRN #30 tab PRN Reason: Spasms HYDROmorphone tablet [Dilaudid] 2 - 4 mg PO 4X/DAY PRN PRN 7 Days #60 tab PRN Reason: Pain proMETHazine tablet [Phenergan tablet] 25 mg PO 4X/DAY PRN PRN #30 tab PRN Reason: NAUSEA/VOMITING Vancomycin 1,250 mg IV Q8H 39 Days #117 vial Docusate Sodium [Colace] 100 mg PO BID #60 cap Primary Care Physician: Eduardo Peters DO [Primary Care Provider] - Please Follow Up With: Sean Stevenson MD When: 1-2 weeks Proposed Discharge Date: 12/18/17
--- NOTE | 2017-12-18 20:39 | DCINST_ITS ---
You will use the following diet at home:: No restrictions Discharge Activity: May not drive while taking narcotic pain medications., May Not Shower - until the drains are removed., - - keep head elevated. no heavy lifting. May shower in (days): 14 - may shower when the drains are removed. May resume sexual activity in: 10-14 days Weight Bearing Status: Weight bearing as tolerated Lifting Restrictions: 20 lbs. Keep extremity elevated above heart level: - - elevate head. Call your doctor if your incision/area has: Continuous Slow Oozing, Sudden Increased Bleeding, Increased Pain/ Swelling, Increased Redness, Foul Smelling Discharge, Swelling at the incision site Call your doctor if you observe: Fever of 101 or Higher, Coldness, Increased Pain, Shortness of breath, Chest pain, Calf discomfort, Uncontrolled pain Suture Line Care: - - dry dressings daily. Change Dressing in (Days):: 1 - dry dressings daily. Cleanse incision/area with: - - may get incision wet in the shower after drains are removed. Drain: Suction - khalida drain x 2 to bulb suction. empty and record output daily. Additional Instructions: Patient to go to the lab at [facility] qMonday for 6 weeks to get CBC, CMP, ESR, CRP, and Vancomycin Trough. Pharmacy to dose. Please fax results also to [phone]. Allergies/Adverse Reactions: Allergies codeine Allergy (Verified 12/03/17 08:20) Rash Penicillins Allergy (Verified 12/03/17 08:20) Rash NSAIDS (Non-Steroidal Anti-Inflamma Adverse Reaction (Verified 12/03/17 08:20) Other UNABLE TO TAKE DUE TO WEIGHT LOSS SURGERY Medications to take at Discharge Levothyroxine [Synthroid] 175 mcg PO DAILY 03/19/14 Calcium Carbonate/Vitamin D3 [Calcium 600-Vit D3 400 Caplet] 1 ea PO BID Cholecalciferol (VIT D3) [Vitamin D3] 2,000 unit PO DAILY 08/15/15 Multivitamins,Ther W-Minerals [Multivitamin With Minerals] 1 tab PO DAILY Nortriptyline HCl [Pamelor] 50 mg PO QHS 04/03/16 buPROPion XL [Wellbutrin Xl] 450 mg PO DAILY 04/18/17 Iron Polysaccharide Complex [Ferrex 150] 150 mg PO BID 05/01/17 Acetaminophen [Tylenol] 1,000 mg PO Q8H PRN #1 tab 05/06/17 Ascorbic Acid [Vitamin C] 1,000 mg PO BID 12/03/17 Fluoxetine HCl [Prozac] 40 mg PO DAILY 12/03/17 Magnesium 250 mg PO QHS 12/03/17 Zolpidem Tartrate [Ambien] 10 mg PO QHS 12/03/17 Diazepam [Valium] 5 mg PO 4X/DAY PRN PRN #30 tab 12/18/17 Docusate Sodium [Colace] 100 mg PO BID #60 cap 12/18/17 HYDROmorphone tablet [Dilaudid] 2 - 4 mg PO 4X/DAY PRN PRN 7 Days #60 tab Vancomycin 1,250 mg IV Q8H 39 Days #117 vial 12/18/17 proMETHazine tablet [Phenergan tablet] 25 mg PO 4X/DAY PRN PRN #30 tab 12/18/17 The following prescriptions were given: Diazepam [Valium] 5 mg PO 4X/DAY PRN PRN #30 tab PRN Reason: Spasms HYDROmorphone tablet [Dilaudid] 2 - 4 mg PO 4X/DAY PRN PRN 7 Days #60 tab PRN Reason: Pain proMETHazine tablet [Phenergan tablet] 25 mg PO 4X/DAY PRN PRN #30 tab PRN Reason: NAUSEA/VOMITING Vancomycin 1,250 mg IV Q8H 39 Days #117 vial Docusate Sodium [Colace] 100 mg PO BID #60 cap Primary Care Physician: Eduardo Peters DO [Primary Care Provider] - Please Follow Up With: Sean Stevenson MD When: 1-2 weeks Proposed Discharge Date: 12/18/17
== END 2017-12-18 20:50 | disposition home health service (06) ==
LOC: SDC 12-18 10:40
PROVIDERS: Admitting Provider Surgery; Family Provider Student in an Organized Health Care Education/Training Program; PCP Student in an Organized Health Care Education/Training Program; Visit Provider Surgery
PROC: (CPT 19357; principal; 2017-12-16 10:15)
DX: N65.1 Disproportion of reconstructed breast (principal); N61.1 Abscess of the breast and nipple; N60.01 Solitary cyst of right breast; I10 Essential (primary) hypertension; E03.9 Hypothyroidism, unspecified; F41.9 Anxiety disorder, unspecified; F32.9 Major depressive disorder, single episode, unspecified; E66.9 Obesity, unspecified; Z68.41 Body mass index [BMI] 40.0-44.9, adult; Z87.891 Personal history of nicotine dependence; Z86.14 Personal history of Methicillin resistant Staphylococcus aureus infection; Z90.11 Acquired absence of right breast and nipple; Z98.84 Bariatric surgery status; Z71.3 Dietary counseling and surveillance; Z79.899 Other long term (current) drug therapy
CPT/HCPCS: 00402; 15777; 19357; 36415; 36569; 80048; 80202; 84134; 84443; 85027; 87070; 87075; 87102; 87205; 87206; 87640; 88305; 96365; 96366; 96372; 96375; 96376; 97802; 99218; J7040; J7050; J7120; A4216; G0378; G0379; J2405

== ENCOUNTER → 2017-12-22 08:59 | Outpatient (CLI) | payer MEDICAID, SELFPAY ==
[2017-12-22 09:35] LABS: Hematocrit 36.1 % (37-47); Hemoglobin 11.4 g/dl (12.0-15.0); Mean Corp Hgb Conc 31.6 g/gl (32-36); Mean Corpuscular Hgb 31.2 pg (27.0-32.0); Mean Corpuscular Volume 98.9 fL (81-99); Mean Platelet Vol. 9.7 fl (6.2-12.0); Platelet Count 297 K/mm3 (150-450); RBC Distribution Width CV 14.9 % (11.6-14.6); RBC Distribution Width SD 52.4 fl (35.1-43.9); Red Blood Count 3.65 M/mm3 (4.2-5.4); Scan Indicated on CBC? Y/N NO; White Blood Count 6.8 K/mm3 (4.4-11.0)
[2017-12-22 09:36] LABS: Erythrocyte Sedimentation Rate 67 mm/hr (0-20)
[2017-12-22 10:05] LABS: Vancomycin, Trough Level 11.1 ug/mL (5.0-15.0)
[2017-12-22 10:10] LABS: ALB/GLOB Ratio 0.9 RATIO (0.9-2.4); AST(SGOT) 22 U/L (15-37); Alanine Aminotransfer ALT/SGPT 26 U/L (13-56); Albumin, Serum 2.9 g/dL (3.2-5.0); Alkaline Phosphatase 66 U/L (45-117); Anion Gap 8 (5-15); BUN 13 mg/dL (7-18); BUN/Creat Ratio 26.9 RATIO (10-20); Calcium,Total 8.2 mg/dL (8.5-10.1); Chloride 103 mmol/L (98-107); Creatinine, Serum 0.48 mg/dL (0.55-1.02); EST Glomerular Filtration Rate 147 mL/min (>60); Est Glom Filt Rate - Afr Amer 178 mL/min (>60); Globulin 3.2 g/dL (2.2-4.2); Glucose 91 mg/dL (74-106); Potassium 4.2 mmol/L (3.5-5.1); Protein, Total 6.1 g/dL (6.4-8.2); Sodium Level 140 mmol/L (136-145)
== END ==
PROVIDERS: Family Provider Student in an Organized Health Care Education/Training Program; PCP Student in an Organized Health Care Education/Training Program; Visit Provider Surgery
DX: N65.1 Disproportion of reconstructed breast (principal); N61.1 Abscess of the breast and nipple
CPT/HCPCS: 36415; 80053; 80202; 85027; 85652; 86140; 99211; G0463

== ENCOUNTER → 2017-12-29 08:22 | Outpatient (CLI) | payer MEDICAID, SELFPAY ==
[2017-12-29 09:00] LABS: Absolute Lymphocyte Count 1.83 X10^3/ul (0.83-4.51); Absolute Neutrophil Count 4.8 X10^3/uL (2.0-7.7); Basophil# 0.02 X10^3/uL; Basophil% 0.3 % (0-1); Eosinophil# 0.38 X10^3/uL; Hematocrit 36.8 % (37-47); Hemoglobin 11.6 g/dl (12.0-15.0); Lymphocyte # 1.83 X10^3/ul (4.0); Lymphocyte % 24.2 % (19-41); Mean Corp Hgb Conc 31.5 g/gl (32-36); Mean Corpuscular Hgb 30.9 pg (27.0-32.0); Mean Corpuscular Volume 97.9 fL (81-99); Mean Platelet Vol. 9.5 fl (6.2-12.0); Monocyte# 0.51 X10^3/uL; Monocyte% 6.7 % (0-10); Neutrophil # 4.82 X10^3/uL (2.7-7.7); Neutrophil % 63.7 % (47-70); Platelet Count 350 K/mm3 (150-450); RBC Distribution Width CV 14.8 % (11.6-14.6); RBC Distribution Width SD 51.5 fl (35.1-43.9); Red Blood Count 3.76 M/mm3 (4.2-5.4); White Blood Count 7.6 K/mm3 (4.4-11.0)
[2017-12-29 09:01] LABS: POSITIVE COUNT NO; POSITIVE DIFFERENTIAL NO; POSITIVE MORPHOLOGY NO
[2017-12-29 09:22] LABS: Vancomycin, Trough Level 13.5 ug/mL (5.0-15.0)
[2017-12-29 09:29] LABS: AST(SGOT) 24 U/L (15-37); Alanine Aminotransfer ALT/SGPT 25 U/L (13-56); Albumin, Serum 3.1 g/dL (3.2-5.0); Alkaline Phosphatase 70 U/L (45-117); Anion Gap 9 (5-15); BUN 13 mg/dL (7-18); BUN/Creat Ratio 21.3 RATIO (10-20); CRP 6.93 mg/L (0.0-3.0); Calcium,Total 8.2 mg/dL (8.5-10.1); Chloride 104 mmol/L (98-107); Creatinine, Serum 0.61 mg/dL (0.55-1.02); EST Glomerular Filtration Rate 113 mL/min (>60); Est Glom Filt Rate - Afr Amer 136 mL/min (>60); Globulin 3.2 g/dL (2.2-4.2); Glucose 96 mg/dL (74-106); Potassium 4.2 mmol/L (3.5-5.1); Protein, Total 6.3 g/dL (6.4-8.2); Sodium Level 139 mmol/L (136-145)
[2017-12-29 09:38] LABS: Erythrocyte Sedimentation Rate 49 mm/hr (0-20)
== END ==
PROVIDERS: Family Provider Student in an Organized Health Care Education/Training Program; PCP Student in an Organized Health Care Education/Training Program; Visit Provider Surgery
DX: N65.1 Disproportion of reconstructed breast (principal); N61.1 Abscess of the breast and nipple
CPT/HCPCS: 36415; 80053; 80202; 85025; 85652; 86140

== ENCOUNTER → 2018-01-02 12:33 | Outpatient (CLI) | payer MEDICAID, SELFPAY | PROVIDERS: Family Provider Student in an Organized Health Care Education/Training Program; PCP Student in an Organized Health Care Education/Training Program; Visit Provider Surgery | DX: Z45.2 Encounter for adjustment and management of vascular access device (principal) ==

== ENCOUNTER → 2018-01-05 08:23 | Outpatient (CLI) | payer MEDICAID, SELFPAY ==
--- NOTE | 2018-01-05 08:40 | NURSING ---
PICC line drsg changed. Chlorhexadine patch drsg used. Drsg adhere poorly to her skin and needed reinforced with tape most all the time. Extension tubing not changed as she did not bring one with her. Not flushes because Madhuri will go home and infuse antibiotic.
[2018-01-05 08:56] LABS: Absolute Lymphocyte Count 1.26 X10^3/ul (0.83-4.51); Absolute Neutrophil Count 3.6 X10^3/uL (2.0-7.7); Basophil# 0.03 X10^3/uL; Basophil% 0.5 % (0-1); Eosinophil# 0.41 X10^3/uL; Eosinophils% 6.9 % (0-5); Hematocrit 37.7 % (37-47); Hemoglobin 11.6 g/dl (12.0-15.0); Lymphocyte # 1.26 X10^3/ul (4.0); Lymphocyte % 21.4 % (19-41); Mean Corp Hgb Conc 30.8 g/gl (32-36); Mean Corpuscular Volume 97.4 fL (81-99); Mean Platelet Vol. 9.7 fl (6.2-12.0); Monocyte# 0.58 X10^3/uL; Monocyte% 9.8 % (0-10); Neutrophil # 3.61 X10^3/uL (2.7-7.7); Neutrophil % 61.2 % (47-70); Platelet Count 298 K/mm3 (150-450); RBC Distribution Width CV 14.9 % (11.6-14.6); RBC Distribution Width SD 52.7 fl (35.1-43.9); Red Blood Count 3.87 M/mm3 (4.2-5.4); White Blood Count 5.9 K/mm3 (4.4-11.0)
[2018-01-05 08:58] LABS: POSITIVE COUNT NO; POSITIVE DIFFERENTIAL NO; POSITIVE MORPHOLOGY NO
[2018-01-05 09:17] LABS: Erythrocyte Sedimentation Rate 42 mm/hr (0-20)
[2018-01-05 09:23] LABS: Vancomycin, Trough Level 11.8 ug/mL (5.0-15.0)
[2018-01-05 09:50] LABS: ALB/GLOB Ratio 1.1 RATIO (0.9-2.4); AST(SGOT) 25 U/L (15-37); Alanine Aminotransfer ALT/SGPT 23 U/L (13-56); Albumin, Serum 3.1 g/dL (3.2-5.0); Alkaline Phosphatase 70 U/L (45-117); Anion Gap 8 (5-15); BUN 12 mg/dL (7-18); BUN/Creat Ratio 22.9 RATIO (10-20); CRP 6.47 mg/L (0.0-3.0); Calcium,Total 8.2 mg/dL (8.5-10.1); Chloride 104 mmol/L (98-107); Creatinine, Serum 0.52 mg/dL (0.55-1.02); EST Glomerular Filtration Rate 134 mL/min (>60); Est Glom Filt Rate - Afr Amer 162 mL/min (>60); Globulin 2.9 g/dL (2.2-4.2); Glucose 94 mg/dL (74-106); Potassium 4.2 mmol/L (3.5-5.1); Sodium Level 139 mmol/L (136-145)
== END ==
PROVIDERS: Family Provider Student in an Organized Health Care Education/Training Program; PCP Student in an Organized Health Care Education/Training Program; Visit Provider Surgery
DX: N65.1 Disproportion of reconstructed breast (principal); N61.1 Abscess of the breast and nipple
CPT/HCPCS: 36415; 80053; 80202; 85025; 85652; 86140

== ENCOUNTER 2018-01-10 08:36 | Emergency (ER) | payer MEDICAID, SELFPAY ==
[2018-01-10 08:38] VITALS: BP 137/84; PULSE 96; RESP 16; TEMP 36.7; O2SAT 100; BMI 43.4
[2018-01-10] MEDS: Alteplase 2 MG/2 ML Vial IV (10:42)
[2018-01-10 10:49] VITALS: BP 121/84; PULSE 84; RESP 15; O2SAT 95
--- NOTE | 2018-01-10 10:50 | ED.RN ---
STERILE DRESSING CHANGE, AND CAP CHANGE COMPLETED BY THIS NURSE. ABLE TO INFUSE NS IV FLUSH EASILY, WITHOUT BLOOD RETURN, DESPITE TROUBLESHOOTING. CATHFLO ADMINISTERED AT THIS TIME, WITH NERY JOEL IVT AND NERY BAUTISTA INSIDE METER TESTER.
--- NOTE | 2018-01-10 11:31 | ED.VISSUMM ---
- ER Visit Summary Date of Service: 01/10/18 Chief Complaint: PICC line check History of Present Illness: The patient is a 47 F with a history of MRSA right breast infection. She has had multiple surgeries. She is currently receiving prophylactic vancomycin through the left PICC line. She states that last night she was able to flush it but was unable to infuse antibiotics and unable to get blood return. She otherwise has no complaints at this time. Physical Examination: Afebrile vitals are stable Moist mucous membranes Heart regular Lungs clear The PICC site and dressing are clean dry and intact Alert Test Results: Not indicated Emergency Department Course and Treatment: Cathflo was used with the PICC line with resolution of obstruction. Patient discharged. Treatment Plan: [] Disposition: Discharge Impression: PICC line obstruction, resolved This note was generated with ProteoSense dictation software. It may contain incorrect words, spelling, and punctuation that were not noted in review of the chart prior to signing ED Disposition - Plan for ED Patient: Chief Complaint: Wound Check Referrals: Eduardo Peters DO [Primary Care Provider] -
--- NOTE | 2018-01-10 11:33 | ED.DEP ---
ED Disposition - Plan for ED Patient: Chief Complaint: Wound Check Instructions: ED PICC Line Care Referrals: Eduardo Peters DO [Primary Care Provider] -
[2018-01-10 11:40] VITALS: BP 127/74; PULSE 61; RESP 15; O2SAT 98
== END 2018-01-10 11:41 | disposition home or self-care (01) ==
LOC: ED 09:14
PROVIDERS: Emergency Provider Emergency Medicine; Family Provider Student in an Organized Health Care Education/Training Program; PCP Student in an Organized Health Care Education/Training Program
DX: T82.898A Other specified complication of vascular prosthetic devices, implants and grafts, initial encounter (principal); B95.62 Methicillin resistant Staphylococcus aureus infection as the cause of diseases classified elsewhere; Z72.0 Tobacco use; Z79.2 Long term (current) use of antibiotics; Z79.891 Long term (current) use of opiate analgesic; Z79.899 Other long term (current) drug therapy
CPT/HCPCS: 96374; 99282; J2997; A4216

== ENCOUNTER → 2018-01-12 08:26 | Outpatient (CLI) | payer MEDICAID, SELFPAY ==
[2018-01-12 08:58] LABS: Absolute Lymphocyte Count 1.34 X10^3/ul (0.83-4.51); Absolute Neutrophil Count 4.9 X10^3/uL (2.0-7.7); Basophil# 0.02 X10^3/uL; Basophil% 0.3 % (0-1); Eosinophil# 0.51 X10^3/uL; Eosinophils% 7.1 % (0-5); Hematocrit 37.8 % (37-47); Hemoglobin 12.1 g/dl (12.0-15.0); Lymphocyte # 1.34 X10^3/ul (4.0); Lymphocyte % 18.6 % (19-41); Mean Corpuscular Hgb 31.3 pg (27.0-32.0); Mean Corpuscular Volume 97.7 fL (81-99); Mean Platelet Vol. 9.7 fl (6.2-12.0); Monocyte# 0.44 X10^3/uL; Monocyte% 6.1 % (0-10); Neutrophil # 4.91 X10^3/uL (2.7-7.7); Neutrophil % 67.9 % (47-70); Platelet Count 243 K/mm3 (150-450); RBC Distribution Width CV 14.6 % (11.6-14.6); RBC Distribution Width SD 50.7 fl (35.1-43.9); Red Blood Count 3.87 M/mm3 (4.2-5.4); White Blood Count 7.2 K/mm3 (4.4-11.0)
[2018-01-12 08:59] LABS: POSITIVE COUNT NO; POSITIVE DIFFERENTIAL NO; POSITIVE MORPHOLOGY NO
[2018-01-12 09:19] LABS: Erythrocyte Sedimentation Rate 45 mm/hr (0-20)
[2018-01-12 09:38] LABS: Vancomycin, Trough Level 15.3 ug/mL (5.0-15.0)
[2018-01-12 09:40] LABS: CRP, High Sensitivity Cardiac 6.89 mg/L
== END ==
PROVIDERS: Family Provider Student in an Organized Health Care Education/Training Program; PCP Student in an Organized Health Care Education/Training Program; Visit Provider Surgery
DX: N65.1 Disproportion of reconstructed breast (principal); N61.1 Abscess of the breast and nipple
CPT/HCPCS: 80202; 85025; 85652; 86141

== ENCOUNTER → 2018-01-19 08:20 | Outpatient (CLI) | payer MEDICAID, SELFPAY ==
[2018-01-19 08:49] LABS: Erythrocyte Sedimentation Rate 52 mm/hr (0-20)
[2018-01-19 08:50] LABS: Absolute Lymphocyte Count 1.58 X10^3/ul (0.83-4.51); Absolute Neutrophil Count 4.5 X10^3/uL (2.0-7.7); Basophil# 0.02 X10^3/uL; Basophil% 0.3 % (0-1); Eosinophil# 0.44 X10^3/uL; Eosinophils% 6.3 % (0-5); Hematocrit 38.2 % (37-47); Hemoglobin 11.9 g/dl (12.0-15.0); Lymphocyte # 1.58 X10^3/ul (4.0); Lymphocyte % 22.5 % (19-41); Mean Corp Hgb Conc 31.2 g/gl (32-36); Mean Corpuscular Hgb 30.1 pg (27.0-32.0); Mean Corpuscular Volume 96.7 fL (81-99); Mean Platelet Vol. 9.5 fl (6.2-12.0); Monocyte% 7.1 % (0-10); Neutrophil # 4.46 X10^3/uL (2.7-7.7); Neutrophil % 63.7 % (47-70); Platelet Count 251 K/mm3 (150-450); RBC Distribution Width CV 14.3 % (11.6-14.6); RBC Distribution Width SD 50.9 fl (35.1-43.9); Red Blood Count 3.95 M/mm3 (4.2-5.4)
[2018-01-19 08:51] LABS: POSITIVE COUNT NO; POSITIVE DIFFERENTIAL NO; POSITIVE MORPHOLOGY NO
[2018-01-19 09:22] LABS: Vancomycin, Trough Level 13.3 ug/mL (5.0-15.0)
[2018-01-19 09:48] LABS: AST(SGOT) 33 U/L (15-37); Alanine Aminotransfer ALT/SGPT 23 U/L (13-56); Albumin, Serum 3.2 g/dL (3.2-5.0); Alkaline Phosphatase 78 U/L (45-117); Anion Gap 8 (5-15); BUN 9 mg/dL (7-18); BUN/Creat Ratio 19.4 RATIO (10-20); CRP 6.55 mg/L (0.0-3.0); Calcium,Total 8.2 mg/dL (8.5-10.1); Chloride 106 mmol/L (98-107); Creatinine, Serum 0.46 mg/dL (0.55-1.02); EST Glomerular Filtration Rate 154 mL/min (>60); Est Glom Filt Rate - Afr Amer 186 mL/min (>60); Globulin 3.1 g/dL (2.2-4.2); Glucose 91 mg/dL (74-106); Potassium 4.6 mmol/L (3.5-5.1); Protein, Total 6.3 g/dL (6.4-8.2); Sodium Level 140 mmol/L (136-145)
== END ==
PROVIDERS: Family Provider Student in an Organized Health Care Education/Training Program; PCP Student in an Organized Health Care Education/Training Program; Visit Provider Surgery
DX: N65.1 Disproportion of reconstructed breast (principal); N61.1 Abscess of the breast and nipple
CPT/HCPCS: 36415; 80053; 80202; 85025; 85652; 86140

== ENCOUNTER → 2018-01-26 08:26 | Outpatient (CLI) | payer MEDICAID, SELFPAY ==
[2018-01-26 08:47] LABS: Absolute Lymphocyte Count 1.53 X10^3/ul (0.83-4.51); Absolute Neutrophil Count 5.5 X10^3/uL (2.0-7.7); Basophil# 0.02 X10^3/uL; Basophil% 0.3 % (0-1); Eosinophil# 0.34 X10^3/uL; Eosinophils% 4.3 % (0-5); Hematocrit 38.9 % (37-47); Lymphocyte # 1.53 X10^3/ul (4.0); Lymphocyte % 19.3 % (19-41); Mean Corp Hgb Conc 30.8 g/gl (32-36); Mean Corpuscular Hgb 30.2 pg (27.0-32.0); Mean Corpuscular Volume 97.7 fL (81-99); Mean Platelet Vol. 9.6 fl (6.2-12.0); Monocyte# 0.56 X10^3/uL; Monocyte% 7.1 % (0-10); Neutrophil # 5.47 X10^3/uL (2.7-7.7); Neutrophil % 68.7 % (47-70); Platelet Count 329 K/mm3 (150-450); RBC Distribution Width CV 14.1 % (11.6-14.6); RBC Distribution Width SD 49.2 fl (35.1-43.9); Red Blood Count 3.98 M/mm3 (4.2-5.4); White Blood Count 7.9 K/mm3 (4.4-11.0)
[2018-01-26 08:50] LABS: Erythrocyte Sedimentation Rate 27 mm/hr (0-20)
[2018-01-26 08:51] LABS: POSITIVE COUNT NO; POSITIVE DIFFERENTIAL NO; POSITIVE MORPHOLOGY NO
[2018-01-26 09:11] LABS: ALB/GLOB Ratio 0.9 RATIO (0.9-2.4); AST(SGOT) 22 U/L (15-37); Alanine Aminotransfer ALT/SGPT 26 U/L (13-56); Albumin, Serum 3.2 g/dL (3.2-5.0); Alkaline Phosphatase 79 U/L (45-117); Anion Gap 6 (5-15); BUN 11 mg/dL (7-18); BUN/Creat Ratio 18.4 RATIO (10-20); Calcium,Total 8.4 mg/dL (8.5-10.1); Chloride 106 mmol/L (98-107); EST Glomerular Filtration Rate 115 mL/min (>60); Est Glom Filt Rate - Afr Amer 139 mL/min (>60); Globulin 3.6 g/dL (2.2-4.2); Glucose 101 mg/dL (74-106); Potassium 4.1 mmol/L (3.5-5.1); Protein, Total 6.8 g/dL (6.4-8.2); Sodium Level 141 mmol/L (136-145); Total Bilirubin < 0.10 mg/dL (0.20-1.00)
== END ==
PROVIDERS: Family Provider Student in an Organized Health Care Education/Training Program; PCP Student in an Organized Health Care Education/Training Program; Visit Provider Surgery
DX: N65.1 Disproportion of reconstructed breast (principal); N61.1 Abscess of the breast and nipple
CPT/HCPCS: 80053; 80202; 85025; 85652; 86140

== ENCOUNTER → 2018-03-12 16:07 | Outpatient (CLI) | payer MEDICAID, SELFPAY | PROVIDERS: Family Provider Student in an Organized Health Care Education/Training Program; PCP Student in an Organized Health Care Education/Training Program; Visit Provider Surgery | DX: L98.492 Non-pressure chronic ulcer of skin of other sites with fat layer exposed (principal); Z86.14 Personal history of Methicillin resistant Staphylococcus aureus infection; Z90.11 Acquired absence of right breast and nipple | CPT/HCPCS: 87070; 87075; 87205 ==

== ENCOUNTER → 2018-04-14 11:00 | Outpatient (CLI) | payer MEDICAID, SELFPAY ==
[2018-04-09 14:34] LABS: International Normalized Ratio 0.9; Prothrombin Time (Protime)PT. 12.5 SECONDS (11.7-14.9)
[2018-04-09 14:35] LABS: Partial Thromboplast Time 31.8 Seconds (24.1-36.2)
[2018-04-09 14:37] LABS: Absolute Lymphocyte Count 2.12 X10^3/ul (0.83-4.51); Absolute Neutrophil Count 4.9 X10^3/uL (2.0-7.7); Basophil# 0.03 X10^3/uL; Basophil% 0.4 % (0-1); Eosinophil# 0.19 X10^3/uL; Eosinophils% 2.4 % (0-5); Hematocrit 41.9 % (37-47); Hemoglobin 13.2 g/dl (12.0-15.0); Lymphocyte # 2.12 X10^3/ul (4.0); Lymphocyte % 27.3 % (19-41); Mean Corp Hgb Conc 31.5 g/gl (32-36); Mean Corpuscular Hgb 29.7 pg (27.0-32.0); Mean Corpuscular Volume 94.4 fL (81-99); Mean Platelet Vol. 10.4 fl (6.2-12.0); Monocyte# 0.54 X10^3/uL; Neutrophil # 4.87 X10^3/uL (2.7-7.7); Neutrophil % 62.8 % (47-70); Platelet Count 291 K/mm3 (150-450); RBC Distribution Width CV 14.9 % (11.6-14.6); RBC Distribution Width SD 49.3 fl (35.1-43.9); Red Blood Count 4.44 M/mm3 (4.2-5.4); White Blood Count 7.8 K/mm3 (4.4-11.0)
[2018-04-09 14:38] LABS: POSITIVE COUNT NO; POSITIVE DIFFERENTIAL NO; POSITIVE MORPHOLOGY NO
[2018-04-09 14:48] LABS: AST(SGOT) 20 U/L (15-37); Alanine Aminotransfer ALT/SGPT 26 U/L (13-56); Albumin, Serum 3.5 g/dL (3.2-5.0); Alkaline Phosphatase 73 U/L (45-117); Bilirubin, Direct 0.06 mg/dL (0.00-0.30); Globulin 3.8 g/dL (2.2-4.2); Protein, Total 7.3 g/dL (6.4-8.2)
== END ==
PROVIDERS: Family Provider Student in an Organized Health Care Education/Training Program; PCP Student in an Organized Health Care Education/Training Program; Visit Provider Surgery
DX: Z01.818 Encounter for other preprocedural examination (principal); E03.9 Hypothyroidism, unspecified
CPT/HCPCS: 36415; 80076; 84443; 85025; 85610; 85730

== ENCOUNTER → 2018-04-27 14:12 | Outpatient (CLI) | payer MEDICAID, SELFPAY ==
[2018-04-27 17:45] LABS: T3 Total - Triiodothyronine 0.75 ng/mL (0.6-1.81)
[2018-04-27 17:59] LABS: T4 Free Direct 0.95 ng/dL (0.76-1.46); Thyroid Stim Hormone (TSH) 6.49 uIU/mL (0.358-3.74)
== END ==
PROVIDERS: Family Provider Student in an Organized Health Care Education/Training Program; PCP Student in an Organized Health Care Education/Training Program; Visit Provider Student in an Organized Health Care Education/Training Program
DX: E03.9 Hypothyroidism, unspecified (principal)
CPT/HCPCS: 36415; 84439; 84443; 84480

== ENCOUNTER 2018-05-05 14:38 | Inpatient (IN) | payer MEDICAID, SELFPAY ==
--- NOTE | 2018-05-04 17:54 | PCM.HP.BLA ---
History and Physical Date of Admission: 05/05/18 HISTORY OF PRESENT ILLNESS 48 year old woman comes in today for further evaluation breast reconstruction after undergoing completion mastectomy right breast in 04/14. She has a history of recurrent breast infections bilaterally. Most recently she had developed MRSA in the right breast. She has had multiple operative drainage procedures both before and after her bilateral breast reduction mammaplasty in 10/15. She denies fever at present. She started the breast reconstruction process on 12/16/17 where she underwent 1st stage delayed right breast reconstruction with placement of submuscular saline tissue manager administrative services (800 ml) and placement DermACELL decellularized dermis graft (160 cm2). She tolerated the tissue expansion. Recently she developed an ulceration in the vertical incision secondary to a heating pad. Wound culture showed Kocuria kristinae and no antibiotics were given. She started wound care with antibiotic ointment daily. She was initially scheduled for breast reconstruction surgery last month. The surgery had to be postponed because her TSH was elevated to 16.5. Just recently it had decreased to 6.49 which is now acceptable for general anesthesia. PAST MEDICAL HISTORY: Grave's disease, s/p thyroidectomy complete, 11/2001 hypothyroidism 2001 Ovarian cyst HTN Metabolic syndrome hypertriglyceridemia Obesity Seasonal allergy Breast lump/cyst Anxiety depression Recurrent infected ulcer left breast abscess right breast anemia compromised bilateral breast reduction nipple grafts nonhealing surgical wound right lateral breast and right medial breast and Tzone right breast recurrent infected nonhealing MRSA ulcer right breast MRSA Acquired absence right breast Disproportion reconstructed breasts PAST SURGICAL HISTORY: complete hysterectomy 02/2007 benign reason (ovarian cyst, and dysfunctional uterine bleeding), on HRT for one year after hysterectomy ligation fallopian tube - 2000 complete thyroidectomy due to grave's disease 11/2001 x 2 09/1998, 01/2001 tonsillectomy 12/2003 Gastric bypass due to severe obesity 04/10/10 [place] 158lbs loss. Incisional hernia repair 07/03/10 panniculectomy 04/2013 hernia repair with mesh - 2014 incision and drainage breast abscess - 04/12 and 08/13 surgical preparation left breast with mastotomy, and incision and drainage and excisional debridement recurrent left breast infection ulcer with 3 cm partial secondary wound closure - 11/21/15 excisional debridement nonhealing recurrent infected ulcer left breast at medial periareolar area with complex secondary wound closure - 12/28/15 excisional debridement nonhealing recurrent infected ulcer left breast at medial periareolar area with complex secondary wound closure - 04/04/16 mastotomy right breast with incision and drainage abscess and excision with partial mastectomy - 06/07/16 Bilateral breast reduction mammaplasty with bilateral free nipple graft reconstruction - 10/01/16 Surgical preparation revision right breast reconstruction with excisional debridement nonhealing surgical wounds lateral aspect and medial aspect with secondary wound closure and excisional debridement compromised graft ulceration nipple area and nonhealing surgical wound Tzone area with FTSG from right lateral breast (25 cm2) - 11/21/16 Surgical preparation right breast with incison and drainage and excisional debridement nonhealing infected nipple graft ulcer (63 cm2) - 01/10/17 Excisional debridement recurrent nonhealing infected MRSA ulcer right breast and compromised skin graft right nipple with completion mastectomy - 04/18/17 Incision and drainage right mastectomy MRSA wound infection - 05/02/17 1st stage delayed right breast reconstruction with placement of submuscular saline tissue manager administrative services (800 ml) and placement DermACELL decellularized dermis graft (160 cm2) - 12/16/17 MEDICATIONS: Pamelor. MVI. Synthroid. Vitamin B12. Celexa. Vitamin D3. Wellbutrin. Vitamin E. Iron supplements. B Complex with Vitamin C. ALLERGIES: Codeine. Penicillin. NSAID's. FAMILY HISTORY: Father (biol.) - Has Family History of Hypertension PGM - Has Family History of Diabetes PGM - Has Family History of Heart Disease Mother (biol.) - Has Family History of Asthma Brother (full) - Has Family History of Asthma Father (biol.) - Has Family History of Depression negative for breast cancer. Heart disease. Thyroid cancer. Parkinson's disease. SOCIAL HISTORY: Patient was smoking up to 09/30-1ppd x 20 years. She has recently quit. Alcohol Use - no Drug Use - no Regular Exercise - no single, but live with partner for 12 years, have two children together, one son, one girl age 11 and 9, son has Asberger patient does not use aspirin. patient does not use ibuprofen. REVIEW OF SYSTEMS: General - Denies fever, fatigue and weakness. Had 150 lb weight loss after gastric bypass in 2009. Eyes - Denies eye pain. ENT - Denies nasal congestion and sore throat. Had thyroidectomy. Had tonsillectomy. CV - Denies chest pain or discomfort, fatigue, lightheadedness and shortness of breath with exertion. Resp - Denies cough and shortness of breath. Patient is a former smoker. GI - Denies nausea, vomiting, diarrhea and constipation. Gastric bypass due to severe obesity 158lbs loss. - Denies blood in urine and urinary frequency. Had hysterectomy MS - Complains of back pain. Denies joint pain, stiffness, muscle weakness and arthritis. Derm - Denies suspicious lesions and skin cancer. Neuro - Denies headaches and numbness. Psych - Complains of anxiety and depression. Endo - Denies excessive urination and excessive thirst. Has had recurrent breast infections. Heme - Denies bleeding and abnormal bruising. PHYSICAL EXAMINATION: General: well developed, well nourished, in no acute distress. Bra size was 42 D prior to the breast reduction. Head: normocephalic and atraumatic. Eyes: PERRL/EOM intact, conjunctiva and sclera clear. Neck: no masses, thyromegaly, or abnormal cervical nodes. Breasts: Left breast is well healed with vertical and horizontal incisions. Good shape and contour left breast. Right breast mastectomy incision shows a healing ulceration on the vertical incision. Measures 1 cm. No clinical evidence of infection. Palpable tissue manager administrative services in place. Lungs: clear bilaterally to auscultation. Heart: regular rate and rhythm. Msk: no bony tenderness. Pulses: pulses normal in all 4 extremities. Extremities: no clubbing, cyanosis, edema, or deformity noted with normal full range of motion of all joints. Neurologic: cranial nerves II-XII grossly intact. Skin: no rashes. Cervical Nodes: no significant adenopathy. Axillary Nodes: no significant adenopathy. Psych: alert and cooperative; normal mood and affect; normal attention span and concentration. ASSESSMENT 1. Recurrent infections bilateral breasts. 2. Bilateral macromastia s/p breast reduction mammaplasty. 3. s/p completion mastectomy right breast. 4. Acquired absence right breast. 5. Disproportion reconstructed breasts. 6. Former smoker. 7. MRSA. 8. Nonhealing ulceration right breast reconstruction from heating pad usage. 9. Deformity right breast reconstruction with excess mastectomy skin scar contour deformity. PLAN Her TSH has decreased to 6.49 which is now acceptable for general anesthesia. Will treat her perioperatively with Vancomycin. Will continue her next stage in her breast reconstruction process which is removal of the saline tissue manager administrative services with replacement cohesive gel implant. Will also revise the reconstructed right breast with excision nonhealing ulcer and excision excess mastectomy skin scar contour deformity. Tissue that is removed will be sent to Pathology for analysis to rule out carcinoma. Will have drains in for several days. Will keep her head elevated and will have a surgical bra for several weeks. She understands that with her history of recurrent infections, the foreign body implant may become infected. If recurrent infections persist and the foreign body implant is removed, she will then consider autogenous breast reconstruction options at that time. She continues to show good healing mastectomy scar right breast with no further evidence of infection, and I told the patient that I will proceed with the saline tissue manager administrative services next month because of her recent MRSA infection. Her MRSA ulcer right breast had healed in August. Surgery will be done under general anesthesia with a surgical observation overnight stay in the hospital. Because of her history of MRSA, I will culture the wound at the time of surgery. I will treat with Vancomycin and will place a PICC line for extended antibiotic usage because of her extensive history of breast infections. After surgery, if there is compromise with healing of the breast flaps, she can continue her HBO treatments. The patient was informed of the risks and complications of the procedure including alternatives to surgery. These were discussed with the patient personally. The patient voices understanding and wishes to proceed. Some of the risks and complications were included in a form from the [employer].
[2018-05-05] VITALS (9 sets, daily range): BP systolic 113–145; BP diastolic 61–81; PULSE 74–112; RESP 15–18; TEMP 36.4–36.8; O2SAT 94–98; BMI 45.7
[2018-05-05] MEDS: Vancomycin IV 1,000 MG/200 ML BAG 200 MG IV (08:54)
--- NOTE | 2018-05-05 09:30 | BREAST_PTH ---
PATIENT: ROBLES CARRASQUILLO LOC: MS3 U#:[id number] AGE/SX: 48/F ROOM: LA321 RE05/05/[address]: Dr. Sean Stevenson MD : 1970 BED: 1 DIS: 05/07/2018 SPEC #: [id number] RECD: 05/05/18 16:03 STATUS: HAMIDA QAMAR #: [id number] ROSE: 05/05/18 09:[address]: Sean Stevenson DEPT: SURGICAL PATHOLOGY RECD BY: Dominic Carl ENTERED: 05/06/18 12:59 SP TYPE: BREAST OTHR DR: Dr. Eduardo Peters, Tissues: Right breast, NOS Procedures: Surgery Specimen Level V HEADER OPERATION: Right breast reconstruction, removal tissue washroom operator PRE-OP DIAGNOSIS: Recurrent infectious bilateral breasts, bilateral macromastia status post breast reduction mammoplasty, status post completion mastectomy, acquired absence, right breast, disproportion reconstruction breasts, deformity right breast, reconstruction with excess mastectomy skin, scar contour deformity TISSUE SUBMITTED: Right breast tissue MICROSCOPIC DIAGNOSIS Right breast tissue, reconstruction: Fragments of skin with underlying tissue and fibroconnective tissue with chronic inflammation, fibrosis, granulation tissue reaction and reactive changes. JOHN:latha 05/07/18 MICROSCOPIC DESCRIPTION Slides are reviewed. GROSS DESCRIPTION Received in fixative is one container labeled with the patient's name and designated right breast tissue. The specimen consists of two pieces of skin with underlying tissue measuring 15 x 4 cm and up to 6 cm in thickness and 12 x 3 cm and up to 3.5 cm in thickness. Also present in the container are two pieces of salazar, indurated tissue measuring in aggregate 13 x 8 x 0.4 cm. Networking Administrator sections are submitted in four cassettes. Cassette 4 contains the detached pieces of indurated tissue. / JOHN:latha 05/06/18 TC:5 CPT: 58696
[2018-05-05] MEDS: Methylene Blue 1% 100 MG/10 ML VIAL (11:30)
--- NOTE | 2018-05-05 14:30 | PCM.IMDPSTOP ---
Immediate Post-Op Note Date of Procedure: 05/05/18 Primary Surgeon/Physician: Sean Stevenson asphalt still operator: Danita Das. Pre-Operative Diagnosis: 1. Recurrent infections bilateral breasts. 2. Bilateral macromastia s/p breast reduction mammaplasty. 3. s/p completion mastectomy right breast. 4. Acquired absence right breast. 5. Disproportion reconstructed breasts. 6. Former smoker. 7. MRSA. 8. Nonhealing ulceration right breast reconstruction from heating pad usage. 9. Deformity right breast reconstruction with excess mastectomy skin scar contour deformity. Post-Operative Diagnosis: Same. Surgery/Procedure Performed:: 1. Delayed right breast reconstruction with removal of saline tissue baseball umpire for little league with replacement cohesive gel implant (800 ml) and placement of Alloderm acellular dermal matrix graft inferolateral sling (132 cm2). 2. Revision reconstructed right breast with excision nonhealing ulcer and excess mastectomy skin scar contour deformity. Description of Surgical Findings:: 48 year old woman comes in today for further evaluation breast reconstruction after undergoing completion mastectomy right breast in 04/14. She has a history of recurrent breast infections bilaterally. Most recently she had developed MRSA in the right breast. She has had multiple operative drainage procedures both before and after her bilateral breast reduction mammaplasty in 10/15. She denies fever at present. She started the breast reconstruction process on 12/16/17 where she underwent 1st stage delayed right breast reconstruction with placement of submuscular saline tissue baseball umpire for little league (800 ml) and placement DermACELL decellularized dermis graft (160 cm2). She tolerated the tissue expansion. Recently she developed an ulceration in the vertical incision secondary to a heating pad. Wound culture showed Kocuria kristinae and no antibiotics were given. She started wound care with antibiotic ointment daily. She was initially scheduled for breast reconstruction surgery last month. The surgery had to be postponed because her TSH was elevated to 16.5. Just recently it had decreased to 6.49 which is now acceptable for general anesthesia. Today the patient underwent delayed right breast reconstruction with removal of saline tissue baseball umpire for little league with replacement cohesive gel implant (800 ml) and placement of Alloderm acellular dermal matrix graft inferolateral sling (132 cm2) and revision reconstructed right breast with excision nonhealing ulcer and excess mastectomy skin scar contour deformity. IV Fluids - 2000 ml. Urine Output - 150 ml. I used [place] MemoryGel Breast Implant Smooth Round Ultra High Profile, (800 ml). Reference Number - [id number]. Lot Number - [id number]. Serial Number - [id number]. I used Alloderm Select Acellular Dermal Matrix Graft, Contour Medium, Perforated, Thick, (132 cm2). Reference Number - [id number]. Lot Number - [id number]. Expiration - May,. I used Kiya absorbable hemostat, (I used 2 vials). Reference Number - [id number]. Lot Number - [id number]. Expiration - January 24, 2023. Estimated Blood Loss: 150 ml. Specimen's removed: 1. Right breast tissue to Pathology and Microbiology. 2. MRSA Wound DNA by PCR. Drains: Elijah x 2. Type of Anesthesia:: General - Admit VTE Documentation VTE Present on Admission: No VTE Mechan Device Prophylaxis: SCD's VTE Pharm Prophylaxis ordered?: Yes
--- NOTE | 2018-05-05 14:36 | OP.PN_ITS ---
Immediate Post-Op Note Date of Procedure: 05/05/18 Primary Surgeon/Physician: Sean Stevenson broommaker: Danita Das. Pre-Operative Diagnosis: 1. Recurrent infections bilateral breasts. 2. Bilateral macromastia s/p breast reduction mammaplasty. 3. s/p completion mastectomy right breast. 4. Acquired absence right breast. 5. Disproportion reconstructed breasts. 6. Former smoker. 7. MRSA. 8. Nonhealing ulceration right breast reconstruction from heating pad usage. 9. Deformity right breast reconstruction with excess mastectomy skin scar contour deformity. Post-Operative Diagnosis: Same. Surgery/Procedure Performed:: 1. Delayed right breast reconstruction with removal of saline tissue commercial lines account executive with replacement cohesive gel implant (800 ml ) and placement of Alloderm acellular dermal matrix graft inferolateral sling ( 132 cm2). 2. Revision reconstructed right breast with excision nonhealing ulcer and excess mastectomy skin scar contour deformity. Description of Surgical Findings:: 48 year old woman comes in today for further evaluation breast reconstruction after undergoing completion mastectomy right breast in 04/14. She has a history of recurrent breast infections bilaterally. Most recently she had developed MRSA in the right breast. She has had multiple operative drainage procedures both before and after her bilateral breast reduction mammaplasty in 10/15. She denies fever at present. She started the breast reconstruction process on where she underwent 1st stage delayed right breast reconstruction with placement of submuscular saline tissue commercial lines account executive (800 ml) and placement DermACELL decellularized dermis graft (160 cm2). She tolerated the tissue expansion. Recently she developed an ulceration in the vertical incision secondary to a heating pad. Wound culture showed Kocuria kristinae and no antibiotics were given. She started wound care with antibiotic ointment daily. She was initially scheduled for breast reconstruction surgery last month. The surgery had to be postponed because her TSH was elevated to 16.5. Just recently it had decreased to 6.49 which is now acceptable for general anesthesia. Today the patient underwent delayed right breast reconstruction with removal of saline tissue commercial lines account executive with replacement cohesive gel implant (800 ml) and placement of Alloderm acellular dermal matrix graft inferolateral sling (132 cm2 ) and revision reconstructed right breast with excision nonhealing ulcer and excess mastectomy skin scar contour deformity. IV Fluids - 2000 ml. Urine Output - 150 ml. I used [place] MemoryGel Breast Implant Smooth Round Ultra High Profile, (800 ml) . Reference Number - [id number]. Lot Number - [id number]. Serial Number - [id number]. I used Alloderm Select Acellular Dermal Matrix Graft, Contour Medium, Perforated , Thick, (132 cm2). Reference Number - [id number]. Lot Number - [id number]. Expiration - May,. I used Kiya absorbable hemostat, (I used 2 vials). Reference Number - [id number]. Lot Number - [id number]. Expiration - January 24, 2023. Estimated Blood Loss: 150 ml. Specimen's removed: 1. Right breast tissue to Pathology and Microbiology. 2. MRSA Wound DNA by PCR. Drains: Elijah x 2. Type of Anesthesia:: General - Admit VTE Documentation VTE Present on Admission: No VTE Mechan Device Prophylaxis: SCD's VTE Pharm Prophylaxis ordered?: Yes
[2018-05-05 15:11] LABS: M R Staph aureus DNA By PCR Negative (Negative); Probe Check PASS; Specimen Processing Control PASS; Staph aureus DNA By PCR NEGATIVE (Negative)
[2018-05-05] MEDS: Lactated Ringers 1,000 ML 60 ML IV (16:42)
--- NOTE | 2018-05-05 16:57 | PCM.RX.CS ---
Consult Pharmacy has been consulted to manage selected antiobiotic: Vancomycin Type of Consult: New start Suspected Infection: Skin/Soft tissue Prior Doses of Antibiotics Received/Current Regimen: Vancomycin 1000mg IV x1 preop Weight used for dosin kg Estimated Creatinine Clearance: 100ml/min Goal Trough: 10-15 mcg/mL Pharmacy Plan for Drug Dosing: Recommend Vancomycin 1750mg IV q12h starting 05/05/18 at 1900. Est trough of 10-15. Draw trough before the 4th dose Pharmacy Service will continue to monitor and adjust dosing as required. Follow-Up Labs: Trough Vancomycin Labs to be done on [date and time ordered]: Trough on 05/06/18 at 1830
--- NOTE | 2018-05-05 17:00 | PHA.PHARE_ITS ---
Consult Pharmacy has been consulted to manage selected antiobiotic: Vancomycin Type of Consult: New start Suspected Infection: Skin/Soft tissue Prior Doses of Antibiotics Received/Current Regimen: Vancomycin 1000mg IV x1 preop Weight used for dosin kg Estimated Creatinine Clearance: 100ml/min Goal Trough: 10-15 mcg/mL Pharmacy Plan for Drug Dosing: Recommend Vancomycin 1750mg IV q12h starting 05/05/18 at 1900. Est trough of 10- 15. Draw trough before the 4th dose Pharmacy Service will continue to monitor and adjust dosing as required. Follow-Up Labs: Trough Vancomycin Labs to be done on [date and time ordered]: Trough on 05/06/18 at 1830
[2018-05-05] MEDS: diazePAM 5 MG Tablet PO ×2 (17:05→21:47)
[2018-05-05] MEDS: HYDROmorphone 2 MG TABLET PO ×2 (18:46→21:37)
[2018-05-05] MEDS: Calcium Carb/Vitamin D 1 TABLET Tablet PO (18:48)
[2018-05-05] MEDS: Docusate Sodium 100 MG Capsule PO (21:31)
[2018-05-05] MEDS: Zolpidem Tartrate 5 MG Tablet PO (21:31)
[2018-05-05] MEDS: Nortriptyline 25 MG Capsule 50 MG PO (21:32)
[2018-05-05] MEDS: Iron Polysaccharide Complex 150 MG CAPSULE PO (21:32)
[2018-05-05] MEDS: Magnesium Oxide 400 MG Tablet PO (21:32)
[2018-05-05] MEDS: Ascorbic Acid 500 MG Tablet 1000 MG PO (21:33)
--- NOTE | 2018-05-05 22:42 | PCM.OPRPT ---
Report of Operation Date of Procedure: 05/05/18 Pre-Operative Diagnosis: 1. Recurrent infections bilateral breasts. 2. Bilateral macromastia s/p breast reduction mammaplasty. 3. s/p completion mastectomy right breast. 4. Acquired absence right breast. 4. Disproportion reconstructed breasts. 5. Former smoker. 6. MRSA. 7. Nonhealing ulceration right breast reconstruction from heating pad usage. 8. Deformity right breast reconstruction with excess mastectomy skin scar contour deformity. Post-Operative Diagnosis: Same. Surgery/Procedure Performed:: 1. Delayed right breast reconstruction with removal of saline tissue farmworker fruit with replacement cohesive gel implant (800 ml) and placement of Alloderm acellular dermal matrix graft inferolateral sling (132 cm2). 2. Revision reconstructed right breast with excision nonhealing ulcer and excess mastectomy skin scar contour deformity. Description of Surgical Findings:: 48 year old woman comes in today for further evaluation breast reconstruction after undergoing completion mastectomy right breast in 04/14. She has a history of recurrent breast infections bilaterally. Most recently she had developed MRSA in the right breast. She has had multiple operative drainage procedures both before and after her bilateral breast reduction mammaplasty in 10/15. She denies fever at present. She started the breast reconstruction process on 12/16/17 where she underwent 1st stage delayed right breast reconstruction with placement of submuscular saline tissue farmworker fruit (800 ml) and placement DermACELL decellularized dermis graft (160 cm2). She tolerated the tissue expansion. Recently she developed an ulceration in the vertical incision secondary to a heating pad. Wound culture showed Kocuria kristinae and no antibiotics were given. She started wound care with antibiotic ointment daily. She was initially scheduled for breast reconstruction surgery last month. The surgery had to be postponed because her TSH was elevated to 16.5. Just recently it had decreased to 6.49 which is now acceptable for general anesthesia. Patient was informed of the risks and complications of the procedure including alternatives to surgery. These were discussed with the patient personally. Patient voices understanding and wishes to proceed. Some of the risks and complications were included in a form from the [employer]. IV Fluids - 2000 ml. Urine Output - 150 ml. I used [place] MemoryGel Breast Implant Smooth Round Ultra High Profile, (800 ml). Reference Number - [id number]. Lot Number - [id number]. Serial Number - [id number]. I used Alloderm Select Acellular Dermal Matrix Graft, Contour Medium, Perforated, Thick, (132 cm2). Reference Number - [id number]. Lot Number - [id number]. Expiration - May,. I used Kiya absorbable hemostat, (I used 2 vials). Reference Number - [id number]. Lot Number - [id number]. Expiration - January 24, 2023. medical records supervisor: Danita Das. Type of Anesthesia:: General Specimen's removed: 1. Right breast tissue to Pathology and Microbiology. 2. MRSA Wound DNA by PCR. Drains: Elijah x 2. Estimated Blood Loss (mL): 150 ml. Fluids Replaced: 2150 ml (IV Fluids 2000 ml, and Urine Output 150 ml). Description of Procedure: While the patient was in the preop area, markings were made from the sternal midline to the umbilicus. The inframammary folds were marked bilaterally. Also the excess mastectomy skin scar contour deformity was marked medially and laterally. She was then taken to the OR in supine position and placed under general anesthesia. Her breasts were prepped and draped in the usual fashion. A hartman catheter was placed. Using xylocaine with epinephrine, the markings on the right breast were infiltrated. After waiting 5 minutes for the anesthetic to take effect, a horizontal incision was made through the previous mastectomy scar down through the subcutaneous tissue until the capsule was seen. A capsulotomy was performed and the saline tissue farmworker fruit was removed. No abnormal fluid collection was seen in the breast pocket. The medial side of the capsule was a little tight and a medial capsulotomy was performed to improve the shape and contour of the breast reconstruction. The previous acellular dermal matrix graft was not incorporated into the surrounding tissue and there was a separate capsular layer formed over the graft without any evidence of incorporation. This graft was removed. I then place a 650 ml high profile sizer into the breast pocket and closed the wound temporarily with surgical clips. The patient was placed in the sitting position. Good shape and contour was noted in the right breast but was much too small as compared to the left side. Patient was then placed back in the supine position and the farmworker fruit was removed. I then tried a 750 ml high profile xtra sizer into the breast pocket. Once again it was noted to be much smaller. I then went to the largest one we have which is the 800 ml ultra high profile sizer. This one gave us the best contour and projection and good medial and superior shape and contour. However it was still less than the left breast. Since this was the largest implant that is not custom made, she will have to consider if she wants to proceed with left breast revision reconstruction next year. With her history of infections, right now she is declining any surgery on the left. So the 800 ml ultra high profile sizer was removed. I placed two size 15 Elijah drains through separate stab incisions inferiorly and laterally and secured to the skin with 3-0 Nylon tie over stent suture dressing. I sprayed Kiya absorbable hemostat into the breast wound to minimize seroma formation. I used two vials. I then place a piece of Alloderm Select acelluar dermal matrix graft, contour medium, perforated, thick, into the breast wound to provide support to the inferior aspect of the breast pocket. This graft was secured to the chest wall with 3-0 Vicryl simple interrupted sutures and vertical mattress interrupted sutures. I then placed the [place] MemoryGel Breast Implant, smooth round ultra high profile, (800 ml), into the breast pocket. One Elijah drain was used to drain the breast pocket and I used the other Elijah drain to drain the more superficial soft tissue of the breast. Good shape and contour was noted in the right breast reconstruction but it is a a little smaller than the left breast at this time. Once the implant was secruely in the breast pocket, I finished closing the acellular dermal matrix graft to the inferior aspect of the pectoralis muscle and fascia. I placed a small malleable into the breast pocket to protect the cohesive gel implant from getting injured from the suture needle. I then excised the excess mastectomy skin scar contour deformity. Due to a small bulge medially, I extended the incision across the sternal midline into the opposite breast and connected to the horizontal breast reduction scar. Hemostasis was obtained with electrocautery. The wounds were irrigated with saline. The breast tissue was sent to Pathology for analysis to rule out carcinoma and to Microbiology for culture. A MRSA Wound DNA by PCR was also done because of her history of MRSA. The breast wounds were then closed with 3-0 Vicryl figure of eight interrupted sutures for the deeper subcutaneous tissue and capsular layer. The deep dermis and subcutaneous tissue was approximated with 3-0 Monocryl interrupted sutures. The skin was approximated with 3-0 Prolene vertical mattress interrupted sutures followed by Histoacryl skin tissue adhesive. A Kerlix gauze dressing was applied followed by an ABD pad and a surgical bra. Patient tolerated the procedure well and was sent to PACU in satisfactory condition. She will be sent upstairs for postop care. With her history of MRSA, will need Vancomycin postoperatively. A PICC line will be placed for that purpose. The drains will be removed in 10-14 days. The sutures will be removed in 3-4 weeks. She will be discharged on antibiotics and pain medication. I will keep an eye on her right breast reconstruction postop. Depending on how well she is healing will determine the length of time she will need IV antibiotics. Grafts/Implants Used: [place] MemoryGel Breast Implant and Alloderm acellular dermal matrix graft. - Complications None. - Admit VTE Documentation VTE Present on Admission: No VTE Mechan Device Prophylaxis: SCD's VTE Pharm Prophylaxis ordered?: Yes Code Visit Surgery Charges CPT - 50875 ICD-10 - N61.1, Z90.11, Z40.01, N65.1, Z86.14, N65.0, L98.492, Z87.891 82744 N61.1, Z90.11, Z40.01, N65.0, L98.492, N65.1, Z86.14, Z87.891 67435 N61.1, Z90.11, Z40.01, N65.1, Z86.14, N65.0, L98.492, Z87.891
[2018-05-06] MEDS: HYDROmorphone 1 MG/ML Syringe IV ×4 (00:30→20:17)
[2018-05-06 02:30] VITALS: BP 139/83; PULSE 85; RESP 16; TEMP 36.6; O2SAT 96
--- NOTE | 2018-05-06 06:43 | NURSING ---
tractor driver notified about picc order
[2018-05-06] MEDS: HYDROmorphone 2 MG TABLET PO ×3 (06:50→17:03)
[2018-05-06] MEDS: Enoxaparin 40 MG/0.4 ML Syringe SC (06:51)
[2018-05-06] MEDS: Levothyroxine 100 MCG Tablet 200 MCG PO (06:51)
[2018-05-06 07:22] LABS: Hematocrit 37.8 % (37-47); Mean Corp Hgb Conc 31.7 g/gl (32-36); Mean Corpuscular Hgb 30.2 pg (27.0-32.0); Mean Corpuscular Volume 95.2 fL (81-99); Mean Platelet Vol. 9.8 fl (6.2-12.0); Platelet Count 217 K/mm3 (150-450); RBC Distribution Width CV 15.6 % (11.6-14.6); RBC Distribution Width SD 52.6 fl (35.1-43.9); Red Blood Count 3.97 M/mm3 (4.2-5.4); White Blood Count 9.9 K/mm3 (4.4-11.0)
[2018-05-06 07:29] LABS: Anion Gap 7 (5-15); BUN 14 mg/dL (7-18); BUN/Creat Ratio 22.2 RATIO (10-20); Calcium,Total 8.3 mg/dL (8.5-10.1); Chloride 107 mmol/L (98-107); Creatinine, Serum 0.63 mg/dL (0.55-1.02); EST Glomerular Filtration Rate 108 mL/min (>60); Est Glom Filt Rate - Afr Amer 130 mL/min (>60); Estimated Creatinine Clearance 104.45 ml/min; Glucose 81 mg/dL (74-106); Potassium 3.9 mmol/L (3.5-5.1); Prealbumin 29.5 mg/dL (20.0-40.0); Sodium Level 140 mmol/L (136-145)
[2018-05-06 07:48] LABS: Scan Indicated on CBC? Y/N NO
[2018-05-06 08:30] VITALS: BP 123/78; PULSE 89; RESP 18; TEMP 36.7; O2SAT 99
[2018-05-06] MEDS: diazePAM 5 MG Tablet PO ×2 (08:54→17:03)
[2018-05-06] MEDS: buPROPion (XL) 150 MG TABLET.XL 450 MG PO (09:01)
[2018-05-06] MEDS: Docusate Sodium 100 MG Capsule PO ×2 (09:01→21:13)
[2018-05-06] MEDS: Ascorbic Acid 500 MG Tablet 1000 MG PO ×2 (09:01→21:12)
[2018-05-06] MEDS: Iron Polysaccharide Complex 150 MG CAPSULE PO ×2 (09:01→21:13)
[2018-05-06] MEDS: Calcium Carb/Vitamin D 1 TABLET Tablet PO ×2 (09:02→17:01)
[2018-05-06] MEDS: FLUoxetine 20 MG Capsule 40 MG PO (09:02)
--- NOTE | 2018-05-06 11:20 | CASEMGMT ---
RN CONSTANTINO Face to Face with patient for initial transition planning/care coordination assessment. RN CM introduced self and role at [facility]. Patient sitting in chair, alert and oriented. Patient willing to participate in assessment and is able to answer all questions appropriately. Care providers, pharmacy, and demographics verified. See link attached. Patient wishes to discharge home, patient will need IV ATBs and HHC. Patient agreeable to [facility] and [facility]HC. CM will make referral to [facility]. Patient states she has no further needs or concerns at this time. CM to follow for discharge planning needs that may arise. Disposition Plan: Patient to discharge home with IV ATB, HHC, family support, and follow-up plans in place.
[2018-05-06] MEDS: Lactated Ringers 1,000 ML 60 ML IV (11:45)
[2018-05-06] MEDS: Multivitamins,Ther W-Minerals Tablet 1 TABLET PO (11:45)
--- NOTE | 2018-05-06 13:45 | CASEMGMT ---
RN CM initiated referral to [facility] for home IV ATBS for at discharge and HHC. CM will continue to monitor this patient and plan for a safe discharge.
[2018-05-06 14:35] VITALS: BP 117/69; PULSE 105; RESP 20; TEMP 36.7; O2SAT 97
--- NOTE | 2018-05-06 16:42 | OP.PCM_ITS ---
Report of Operation Date of Procedure: 05/05/18 Pre-Operative Diagnosis: 1. Recurrent infections bilateral breasts. 2. Bilateral macromastia s/p breast reduction mammaplasty. 3. s/p completion mastectomy right breast. 4. Acquired absence right breast. 4. Disproportion reconstructed breasts. 5. Former smoker. 6. MRSA. 7. Nonhealing ulceration right breast reconstruction from heating pad usage. 8. Deformity right breast reconstruction with excess mastectomy skin scar contour deformity. Post-Operative Diagnosis: Same. Surgery/Procedure Performed:: 1. Delayed right breast reconstruction with removal of saline tissue homicide investigator with replacement cohesive gel implant (800 ml ) and placement of Alloderm acellular dermal matrix graft inferolateral sling ( 132 cm2). 2. Revision reconstructed right breast with excision nonhealing ulcer and excess mastectomy skin scar contour deformity. Description of Surgical Findings:: 48 year old woman comes in today for further evaluation breast reconstruction after undergoing completion mastectomy right breast in 04/14. She has a history of recurrent breast infections bilaterally. Most recently she had developed MRSA in the right breast. She has had multiple operative drainage procedures both before and after her bilateral breast reduction mammaplasty in 10/15. She denies fever at present. She started the breast reconstruction process on where she underwent 1st stage delayed right breast reconstruction with placement of submuscular saline tissue homicide investigator (800 ml) and placement DermACELL decellularized dermis graft (160 cm2). She tolerated the tissue expansion. Recently she developed an ulceration in the vertical incision secondary to a heating pad. Wound culture showed Kocuria kristinae and no antibiotics were given. She started wound care with antibiotic ointment daily. She was initially scheduled for breast reconstruction surgery last month. The surgery had to be postponed because her TSH was elevated to 16.5. Just recently it had decreased to 6.49 which is now acceptable for general anesthesia. Patient was informed of the risks and complications of the procedure including alternatives to surgery. These were discussed with the patient personally. Patient voices understanding and wishes to proceed. Some of the risks and complications were included in a form from the [employer]. IV Fluids - 2000 ml. Urine Output - 150 ml. I used [place] MemoryGel Breast Implant Smooth Round Ultra High Profile, (800 ml) . Reference Number - [id number]. Lot Number - [id number]. Serial Number - [id number]. I used Alloderm Select Acellular Dermal Matrix Graft, Contour Medium, Perforated , Thick, (132 cm2). Reference Number - [id number]. Lot Number - [id number]. Expiration - May,. I used Kiya absorbable hemostat, (I used 2 vials). Reference Number - [id number]. Lot Number - [id number]. Expiration - January 24, 2023. creative art therapist: Danita Das. Type of Anesthesia:: General Specimen's removed: 1. Right breast tissue to Pathology and Microbiology. 2. MRSA Wound DNA by PCR. Drains: Elijah x 2. Estimated Blood Loss (mL): 150 ml. Fluids Replaced: 2150 ml (IV Fluids 2000 ml, and Urine Output 150 ml). Description of Procedure: While the patient was in the preop area, markings were made from the sternal midline to the umbilicus. The inframammary folds were marked bilaterally. Also the excess mastectomy skin scar contour deformity was marked medially and laterally. She was then taken to the OR in supine position and placed under general anesthesia. Her breasts were prepped and draped in the usual fashion. A hartman catheter was placed. Using xylocaine with epinephrine, the markings on the right breast were infiltrated. After waiting 5 minutes for the anesthetic to take effect, a horizontal incision was made through the previous mastectomy scar down through the subcutaneous tissue until the capsule was seen. A capsulotomy was performed and the saline tissue homicide investigator was removed. No abnormal fluid collection was seen in the breast pocket. The medial side of the capsule was a little tight and a medial capsulotomy was performed to improve the shape and contour of the breast reconstruction. The previous acellular dermal matrix graft was not incorporated into the surrounding tissue and there was a separate capsular layer formed over the graft without any evidence of incorporation. This graft was removed. I then place a 650 ml high profile sizer into the breast pocket and closed the wound temporarily with surgical clips. The patient was placed in the sitting position. Good shape and contour was noted in the right breast but was much too small as compared to the left side. Patient was then placed back in the supine position and the homicide investigator was removed. I then tried a 750 ml high profile xtra sizer into the breast pocket. Once again it was noted to be much smaller. I then went to the largest one we have which is the 800 ml ultra high profile sizer. This one gave us the best contour and projection and good medial and superior shape and contour. However it was still less than the left breast. Since this was the largest implant that is not custom made, she will have to consider if she wants to proceed with left breast revision reconstruction next year. With her history of infections, right now she is declining any surgery on the left. So the 800 ml ultra high profile sizer was removed. I placed two size 15 Elijah drains through separate stab incisions inferiorly and laterally and secured to the skin with 3-0 Nylon tie over stent suture dressing. I sprayed Kiya absorbable hemostat into the breast wound to minimize seroma formation. I used two vials. I then place a piece of Alloderm Select acelluar dermal matrix graft, contour medium, perforated, thick, into the breast wound to provide support to the inferior aspect of the breast pocket. This graft was secured to the chest wall with 3-0 Vicryl simple interrupted sutures and vertical mattress interrupted sutures. I then placed the [place] MemoryGel Breast Implant, smooth round ultra high profile, (800 ml), into the breast pocket. One Elijah drain was used to drain the breast pocket and I used the other Elijah drain to drain the more superficial soft tissue of the breast. Good shape and contour was noted in the right breast reconstruction but it is a a little smaller than the left breast at this time. Once the implant was secruely in the breast pocket, I finished closing the acellular dermal matrix graft to the inferior aspect of the pectoralis muscle and fascia. I placed a small malleable into the breast pocket to protect the cohesive gel implant from getting injured from the suture needle. I then excised the excess mastectomy skin scar contour deformity. Due to a small bulge medially, I extended the incision across the sternal midline into the opposite breast and connected to the horizontal breast reduction scar. Hemostasis was obtained with electrocautery. The wounds were irrigated with saline. The breast tissue was sent to Pathology for analysis to rule out carcinoma and to Microbiology for culture. A MRSA Wound DNA by PCR was also done because of her history of MRSA. The breast wounds were then closed with 3-0 Vicryl figure of eight interrupted sutures for the deeper subcutaneous tissue and capsular layer. The deep dermis and subcutaneous tissue was approximated with 3-0 Monocryl interrupted sutures. The skin was approximated with 3-0 Prolene vertical mattress interrupted sutures followed by Histoacryl skin tissue adhesive. A Kerlix gauze dressing was applied followed by an ABD pad and a surgical bra. Patient tolerated the procedure well and was sent to PACU in satisfactory condition. She will be sent upstairs for postop care. With her history of MRSA, will need Vancomycin postoperatively. A PICC line will be placed for that purpose. The drains will be removed in 10-14 days. The sutures will be removed in 3-4 weeks. She will be discharged on antibiotics and pain medication. I will keep an eye on her right breast reconstruction postop. Depending on how well she is healing will determine the length of time she will need IV antibiotics. Grafts/Implants Used: [place] MemoryGel Breast Implant and Alloderm acellular dermal matrix graft. - Complications None. - Admit VTE Documentation VTE Present on Admission: No VTE Mechan Device Prophylaxis: SCD's VTE Pharm Prophylaxis ordered?: Yes Code Visit Surgery Charges CPT - 25744 ICD-10 - N61.1, Z90.11, Z40.01, N65.1, Z86.14, N65.0, L98.492, Z87.891 94496 N61.1, Z90.11, Z40.01, N65.0, L98.492, N65.1, Z86.14, Z87.891 15469 N61.1, Z90.11, Z40.01, N65.1, Z86.14, N65.0, L98.492, Z87.891
--- NOTE | 2018-05-06 19:08 | PCM.PN.SRG ---
Subjective: Postop #1 Patient complains of incisional pain. - Physical Exam General: Alert, Oriented x3 HEENT: PERRLA Oral: Moist Mucosa Neck: Supple Abdomen: Soft, Non-Distended Skin: Incision - right breast incison is dry and intact. Tender to palpation. No evidence of hematoma. Neurological: Cranial nerves II-XII grossly intact Psych/Mental Status: Normal Affect, Appropriate Vital Signs Temp Pulse Resp BP Pulse Ox 98.1 F 105 H 20 H 117/69 97 05/06/18 14:35 05/06/18 14:35 05/06/18 14:35 05/06/18 14:35 05/06/18 14:35 Oxygen Flow Rate (L/min) 3 Oxygen Delivery Method Room Air Weight: 283 lb 8.231 oz Body Mass Index (BMI) 45.7 Intake and Output for Last 24 Hours 05/04/18 05/05/18 05/06/18 23:59 23:59 23:59 Intake Total 2317 / 2317 3856 / 3856 Output Total 1840 / 1840 2315 / 2315 Balance 477 / 477 1541 / 1541 Drainage 140 ml yesterday. Microbiology Past 72 Hours 05/05/18 13:37 Gram Stain - Final Tissue - Breast Wound Culture - Preliminary No growth-Final to follow Laboratory Tests Past 24 Hrs 05/06/18 05/06/18 05/06/18 06:46 06:46 18:27 WBC 9.9 RBC 3.97 L Hgb 12.0 Hct 37.8 MCV 95.2 MCH 30.2 MCHC 31.7 L RDW 15.6 H RDW Differential 52.6 H Plt Count 217 MPV 9.8 Sodium 140 Potassium 3.9 Chloride 107 Carbon Dioxide 26.0 Anion Gap 7 BUN 14 Creatinine 0.63 Estim Creat Clear Calc 104.45 Est GFR (MDRD) Af Amer 130 Est GFR (MDRD) Non-Af 108 BUN/Creatinine Ratio 22.2 H Glucose 81 Calcium 8.3 L Prealbumin 29.5 Vancomycin Trough Pending Medical Necessity - Tobacco Use Smoking Status: Former smoker Assessment/Plan All Active Problems (Last Reviewed 11/13/17 @ 09:21 by Tiff Abdi) Acquired absence of right breast and nipple (Acute) Cellulitis of right breast (Acute) Septic shock (Acute) Infected wound (Acute) Open wound of right breast (Acute) Hypothyroid (Acute) 1. Recurrent infections bilateral breasts. 2. Bilateral macromastia s/p breast reduction mammaplasty. 3. s/p completion mastectomy right breast. 4. Acquired absence right breast. 5. Disproportion reconstructed breasts. 6. Former smoker. 7. MRSA. 8. Nonhealing ulceration right breast reconstruction from heating pad usage. 8. Deformity right breast reconstruction with excess mastectomy skin scar contour deformity. 9. s/p delayed right breast reconstruction with removal of saline tissue director of program management with replacement cohesive gel implant (800 ml) and placement of Alloderm acellular dermal matrix graft inferolateral sling (132 cm2) and revision reconstructed right breast with excision nonhealing ulcer and excess mastectomy skin scar contour deformity. Incision is dry and intact. No clinical evidence of hematoma. Tenderness to palpation. Needs IV analgesia. Will wean to po analgesia for discharge. Anticipate tomorrow. Is a little unsteady on her feet with ambulation. Encourage ambulation with assist. PICC line to be placed today for home IV Vancomycin. Keep head elevated. No heavy lifting.
[2018-05-06 19:27] LABS: Vancomycin, Trough Level 10.3 ug/mL (5.0-15.0)
[2018-05-06] MEDS: DiphenhydrAMINE 25 MG Capsule 50 MG PO (20:06)
[2018-05-06 20:35] VITALS: BP 124/74; PULSE 91; RESP 16; TEMP 36.8; O2SAT 97
[2018-05-06] MEDS: Zolpidem Tartrate 5 MG Tablet PO (21:11)
[2018-05-06] MEDS: Magnesium Oxide 400 MG Tablet PO (21:14)
[2018-05-06] MEDS: Nortriptyline 25 MG Capsule 50 MG PO (21:14)
--- NOTE | 2018-05-06 23:30 | PCM.RX.CS ---
Consult Pharmacy has been consulted to manage selected antiobiotic: Vancomycin Type of Consult: Follow-up Suspected Infection: Skin/Soft tissue Prior Doses of Antibiotics Received/Current Regimen: Medications Vancomycin HCl 1,750 mg/ (Sodium Chloride) 535 mls @ 250 mls/hr IV Q12H AMANDO Last Admin: 05/06/18 18:55 Dose: 250 mls/hr Labs: Sodium 140 mmol/L (136-145) 05/06/18 06:46 Potassium 3.9 mmol/L (3.5-5.1) 05/06/18 06:46 Chloride 107 mmol/L (98-107) 05/06/18 06:46 Carbon Dioxide 26.0 mmol/L (21.0-32.0) 05/06/18 06:46 Anion Gap 7 (5-15) 05/06/18 06:46 BUN 14 mg/dL (7-18) 05/06/18 06:46 Creatinine 0.63 mg/dL (0.55-1.02) 05/06/18 06:46 Est GFR (MDRD) Af Amer 130 mL/min (>60) 05/06/18 06:46 Est GFR (MDRD) Non-Af 108 mL/min (>60) 05/06/18 06:46 BUN/Creatinine Ratio 22.2 RATIO (10-20) H 05/06/18 06:46 Glucose 81 mg/dL (74-106) 05/06/18 06:46 Vancomycin Trough 10.3 ug/mL (5.0-15.0) 05/06/18 18:27 Microbiology: Microbiology 05/05/18 13:37 Tissue - Breast Gram Stain - Final 05/05/18 13:37 Tissue - Breast Wound Culture - Preliminary No growth-Final to follow Weight used for dosin kg Estimated Creatinine Clearance: 104 Goal Trough: 10-15 mcg/mL Pharmacy Plan for Drug Dosin05/06/18 trough level received as 10.3, within target range. Continuing current dose. Pharmacy Service will continue to monitor and adjust dosing as required. Follow-Up Labs: Trough Vancomycin Labs to be done on [date and time ordered]: 05/08/18 @0630
[2018-05-07 02:35] VITALS: BP 123/83; PULSE 88; RESP 16; TEMP 36.8; O2SAT 94
[2018-05-07] MEDS: Lactated Ringers 1,000 ML 60 ML IV (06:12)
[2018-05-07] MEDS: HYDROmorphone 1 MG/ML Syringe IV (06:13)
[2018-05-07] MEDS: Enoxaparin 40 MG/0.4 ML Syringe SC ×2 (06:15→06:16)
[2018-05-07] MEDS: Levothyroxine 100 MCG Tablet 200 MCG PO (06:17)
[2018-05-07] MEDS: DiphenhydrAMINE 25 MG Capsule 50 MG PO ×2 (06:24→12:17)
[2018-05-07 08:09] LABS: Hematocrit 35.9 % (37-47); Hemoglobin 11.1 g/dl (12.0-15.0); Mean Corp Hgb Conc 30.9 g/gl (32-36); Mean Corpuscular Hgb 29.8 pg (27.0-32.0); Mean Corpuscular Volume 96.2 fL (81-99); Mean Platelet Vol. 10.4 fl (6.2-12.0); Platelet Count 212 K/mm3 (150-450); RBC Distribution Width SD 54.4 fl (35.1-43.9); Red Blood Count 3.73 M/mm3 (4.2-5.4); White Blood Count 6.4 K/mm3 (4.4-11.0)
[2018-05-07 08:23] LABS: Anion Gap 9 (5-15); BUN 16 mg/dL (7-18); Chloride 106 mmol/L (98-107); Creatinine, Serum 0.53 mg/dL (0.55-1.02); EST Glomerular Filtration Rate 131 mL/min (>60); Est Glom Filt Rate - Afr Amer 159 mL/min (>60); Estimated Creatinine Clearance 124.16 ml/min; Glucose 83 mg/dL (74-106); Sodium Level 144 mmol/L (136-145)
[2018-05-07 08:24] LABS: Scan Indicated on CBC? Y/N NO
[2018-05-07 08:34] VITALS: BP 127/77; PULSE 86; RESP 18; TEMP 36.4; O2SAT 96
[2018-05-07] MEDS: Acetaminophen 500 MG Tablet 1000 MG PO (08:43)
[2018-05-07] MEDS: Calcium Carb/Vitamin D 1 TABLET Tablet PO (08:44)
[2018-05-07] MEDS: Docusate Sodium 100 MG Capsule PO (08:44)
[2018-05-07] MEDS: buPROPion (XL) 150 MG TABLET.XL 450 MG PO (08:44)
[2018-05-07] MEDS: Iron Polysaccharide Complex 150 MG CAPSULE PO (08:45)
[2018-05-07] MEDS: Ascorbic Acid 500 MG Tablet 1000 MG PO (08:45)
[2018-05-07] MEDS: FLUoxetine 20 MG Capsule 40 MG PO (08:45)
--- NOTE | 2018-05-07 09:25 | CASEMGMT ---
NERY MEEKS obtained script for IV antibiotic and faxed to [facility]. Script also faxed to [facility]. NERY MEESK will continue to follow this patient and plan for a safe discharge.
[2018-05-07] MEDS: HYDROmorphone 2 MG TABLET PO (10:17)
--- NOTE | 2018-05-07 11:13 | PCM.PN.SRG ---
Subjective: Postop #2 Patient is resting comfortably. She is tolerating po analgesia. She is anxious to go home today. - Physical Exam General: Alert, Oriented x3 HEENT: PERRLA, EOMI Oral: Moist Mucosa Neck: Supple Lungs: Clear to auscultation Cardiovascular: Regular rate, Regular Rhythm Abdomen: Soft, Non-Distended Skin: Incision - right breast incision dry and intact. No clinical evidence of hematoma. Neurological: Cranial nerves II-XII grossly intact Psych/Mental Status: Normal Affect, Appropriate Vital Signs Temp Pulse Resp BP Pulse Ox 97.6 F L 86 18 127/77 H 96 05/07/18 08:34 05/07/18 08:34 05/07/18 08:34 05/07/18 08:34 05/07/18 08:34 Oxygen Flow Rate (L/min) 3 Oxygen Delivery Method Room Air Weight: 283 lb 8.231 oz Body Mass Index (BMI) 45.7 Intake and Output for Last 24 Hours 05/05/18 05/06/18 05/07/18 23:59 23:59 23:59 Intake Total 2317 / 2317 3856 / 3856 1946 / 1946 Output Total 1840 / 1840 2315 / 2315 1180 / 1180 Balance 477 / 477 1541 / 1541 766 / 766 Drainage 290 ml yesterday, 130 ml today. Microbiology Past 72 Hours 05/05/18 13:37 Gram Stain - Final Tissue - Breast Wound Culture - Preliminary No growth-Final to follow Anaerobic Culture - Preliminary No growth in 48 hours. Laboratory Tests Past 24 Hrs 05/06/18 05/07/18 05/07/18 18:27 05:40 05:40 WBC 6.4 RBC 3.73 L Hgb 11.1 L Hct 35.9 L MCV 96.2 MCH 29.8 MCHC 30.9 L RDW 16.0 H RDW Differential 54.4 H Plt Count 212 MPV 10.4 Sodium 144 Potassium 4.0 Chloride 106 Carbon Dioxide 29.0 Anion Gap 9 BUN 16 Creatinine 0.53 L Estim Creat Clear Calc 124.16 Est GFR (MDRD) Af Amer 159 Est GFR (MDRD) Non-Af 131 BUN/Creatinine Ratio 30.0 H Glucose 83 Calcium 8.0 L Vancomycin Trough 10.3 Medical Necessity - Tobacco Use Smoking Status: Former smoker Assessment/Plan All Active Problems (Last Reviewed 11/13/17 @ 09:21 by Tiff Abdi) Acquired absence of right breast and nipple (Acute) Cellulitis of right breast (Acute) Septic shock (Acute) Infected wound (Acute) Open wound of right breast (Acute) Hypothyroid (Acute) 1. Recurrent infections bilateral breasts. 2. Bilateral macromastia s/p breast reduction mammaplasty. 3. s/p completion mastectomy right breast. 4. Acquired absence right breast. 5. Disproportion reconstructed breasts. 6. Former smoker. 7. MRSA. 8. Nonhealing ulceration right breast reconstruction from heating pad usage. 8. Deformity right breast reconstruction with excess mastectomy skin scar contour deformity. 9. s/p delayed right breast reconstruction with removal of saline tissue absorber operator with replacement cohesive gel implant (800 ml) and placement of Alloderm acellular dermal matrix graft inferolateral sling (132 cm2) and revision reconstructed right breast with excision nonhealing ulcer and excess mastectomy skin scar contour deformity. Incision is dry and intact. No clinical evidence of hematoma. She is tolerating po analgesia. Is more steady on her feet with ambulation. PICC line is in. Arranging home IV Vancomycin. Anticipate discharge today. Keep head elevated. No heavy lifting. Followup one week to remove one of the drains. Wrote scripts for Dilaudid for pain (40 tabs) and Valium for spasm (20 tabs).
--- NOTE | 2018-05-07 11:26 | PCM.DC ---
You will use the following diet at home:: No restrictions Discharge Activity: May not drive while taking narcotic pain medications., May Not Shower - until the drain is removed., - - keep head elevated. no heavy lifting. May shower in (days): 14 - when the drains are removed. May resume sexual activity in: 10-14 days Weight Bearing Status: Weight bearing as tolerated Lifting Restrictions: 20 lbs. Keep extremity elevated above heart level: - - elevate head. Call your doctor if your incision/area has: Continuous Slow Oozing, Sudden Increased Bleeding, Increased Pain/ Swelling, Increased Redness, Foul Smelling Discharge, Swelling at the incision site Call your doctor if you observe: Fever of 101 or Higher, Coldness, Increased Pain, Shortness of breath, Chest pain, Calf discomfort, Uncontrolled pain Suture Line Care: - - dry dressings daily. Change Dressing in (Days):: 1 - dry dressings daily. Cleanse incision/area with: - - may get incisions wet in the shower after the drains are removed. Drain: Suction - khalida drain x 2 to bulb suction. empty and record output daily. Allergies/Adverse Reactions: Allergies codeine Allergy (Verified 04/07/18 11:11) Rash Penicillins Allergy (Verified 04/07/18 11:11) Rash NSAIDS (Non-Steroidal Anti-Inflamma Adverse Reaction (Verified 04/07/18 11:11) Other UNABLE TO TAKE DUE TO WEIGHT LOSS SURGERY Medications to take at Discharge Levothyroxine [Synthroid] 200 mcg PO DAILY 03/19/14 Calcium Carbonate/Vitamin D3 [Calcium 600-Vit D3 400 Caplet] 1 ea PO BID 08/15/15 Cholecalciferol (VIT D3) [Vitamin D3] 2,000 unit PO DAILY 08/15/15 Multivitamins,Ther W-Minerals [Multivitamin With Minerals] 1 tab PO DAILY 08/15/15 Nortriptyline HCl [Pamelor] 50 mg PO QHS 04/03/16 buPROPion XL [Wellbutrin Xl] 450 mg PO DAILY 04/18/17 Iron Polysaccharide Complex [Ferrex 150] 150 mg PO BID 05/01/17 Acetaminophen [Tylenol] 1,000 mg PO Q8H PRN #1 tab 05/06/17 Ascorbic Acid [Vitamin C] 1,000 mg PO BID 12/03/17 Fluoxetine HCl [Prozac] 40 mg PO DAILY 12/03/17 Magnesium 250 mg PO QHS 12/03/17 Docusate Sodium [Colace] 100 mg PO BID #60 cap 12/18/17 proMETHazine tablet [Phenergan tablet] 25 mg PO 4X/DAY PRN PRN #30 tab 12/18/17 Zolpidem Tartrate [Ambien] 10 mg PO QHS 04/07/18 Vancomycin IV 1,750 mg IV Q12H 40 Days #80 vial 05/06/18 Diazepam [Valium] 5 mg PO 4X/DAY PRN #20 tab 05/07/18 DiphenhydrAMINE [Benadryl] 50 mg PO 4X/DAY PRN capsule 05/07/18 HYDROmorphone tablet [Dilaudid] 2 - 4 mg PO 4X/DAY PRN PRN 5 Days #40 tab 05/07/18 The following prescriptions were given: HYDROmorphone tablet [Dilaudid] 2 - 4 mg PO 4X/DAY PRN PRN 5 Days #40 tab PRN Reason: Severe Pain (6-07/08) Vancomycin IV 1,750 mg IV Q12H 40 Days #80 vial Diazepam [Valium] 5 mg PO 4X/DAY PRN #20 tab PRN Reason: spasms Primary Care Physician: Eduardo Peters DO [Primary Care Provider] - Test Results: Test results from this visit will be discussed in further detail at your follow-up appointment, if applicable. Please Follow Up With: Sean Stevenson MD When: one week. call [phone] for appt. Proposed Discharge Date: 05/07/18
--- NOTE | 2018-05-07 11:30 | DCINST_ITS ---
You will use the following diet at home:: No restrictions Discharge Activity: May not drive while taking narcotic pain medications., May Not Shower - until the drain is removed., - - keep head elevated. no heavy lifting. May shower in (days): 14 - when the drains are removed. May resume sexual activity in: 10-14 days Weight Bearing Status: Weight bearing as tolerated Lifting Restrictions: 20 lbs. Keep extremity elevated above heart level: - - elevate head. Call your doctor if your incision/area has: Continuous Slow Oozing, Sudden Increased Bleeding, Increased Pain/ Swelling, Increased Redness, Foul Smelling Discharge, Swelling at the incision site Call your doctor if you observe: Fever of 101 or Higher, Coldness, Increased Pain, Shortness of breath, Chest pain, Calf discomfort, Uncontrolled pain Suture Line Care: - - dry dressings daily. Change Dressing in (Days):: 1 - dry dressings daily. Cleanse incision/area with: - - may get incisions wet in the shower after the drains are removed. Drain: Suction - khalida drain x 2 to bulb suction. empty and record output daily. Allergies/Adverse Reactions: Allergies codeine Allergy (Verified 04/07/18 11:11) Rash Penicillins Allergy (Verified 04/07/18 11:11) Rash NSAIDS (Non-Steroidal Anti-Inflamma Adverse Reaction (Verified 04/07/18 11:11) Other UNABLE TO TAKE DUE TO WEIGHT LOSS SURGERY Medications to take at Discharge Levothyroxine [Synthroid] 200 mcg PO DAILY 03/19/14 Calcium Carbonate/Vitamin D3 [Calcium 600-Vit D3 400 Caplet] 1 ea PO BID Cholecalciferol (VIT D3) [Vitamin D3] 2,000 unit PO DAILY 08/15/15 Multivitamins,Ther W-Minerals [Multivitamin With Minerals] 1 tab PO DAILY Nortriptyline HCl [Pamelor] 50 mg PO QHS 04/03/16 buPROPion XL [Wellbutrin Xl] 450 mg PO DAILY 04/18/17 Iron Polysaccharide Complex [Ferrex 150] 150 mg PO BID 05/01/17 Acetaminophen [Tylenol] 1,000 mg PO Q8H PRN #1 tab 05/06/17 Ascorbic Acid [Vitamin C] 1,000 mg PO BID 12/03/17 Fluoxetine HCl [Prozac] 40 mg PO DAILY 12/03/17 Magnesium 250 mg PO QHS 12/03/17 Docusate Sodium [Colace] 100 mg PO BID #60 cap 12/18/17 proMETHazine tablet [Phenergan tablet] 25 mg PO 4X/DAY PRN PRN #30 tab 12/18/17 Zolpidem Tartrate [Ambien] 10 mg PO QHS 04/07/18 Vancomycin IV 1,750 mg IV Q12H 40 Days #80 vial 05/06/18 Diazepam [Valium] 5 mg PO 4X/DAY PRN #20 tab 05/07/18 DiphenhydrAMINE [Benadryl] 50 mg PO 4X/DAY PRN capsule 05/07/18 HYDROmorphone tablet [Dilaudid] 2 - 4 mg PO 4X/DAY PRN PRN 5 Days #40 tab The following prescriptions were given: HYDROmorphone tablet [Dilaudid] 2 - 4 mg PO 4X/DAY PRN PRN 5 Days #40 tab PRN Reason: Severe Pain (6-07/08) Vancomycin IV 1,750 mg IV Q12H 40 Days #80 vial Diazepam [Valium] 5 mg PO 4X/DAY PRN #20 tab PRN Reason: spasms Primary Care Physician: Eduardo Peters DO [Primary Care Provider] - Test Results: Test results from this visit will be discussed in further detail at your follow- up appointment, if applicable. Please Follow Up With: Sean Stevenson MD When: one week. call [phone] for appt. Proposed Discharge Date: 05/07/18
[2018-05-07] MEDS: Multivitamins,Ther W-Minerals Tablet 1 TABLET PO (12:17)
[2018-05-07] MEDS: 0.9% NaCl Peripheral Flush Adult/Peds IV (12:31)
== END 2018-05-07 13:25 | disposition home or self-care (01) | DRG 266 ==
LOC: SDC 05-06 08:06
PROVIDERS: Admitting Provider Surgery; Family Provider Student in an Organized Health Care Education/Training Program; PCP Student in an Organized Health Care Education/Training Program; Visit Provider Surgery
PROC: 0HRT0JZ Replacement of Right Breast with Synthetic Substitute, Open Approach (ICD-10-PCS; principal; 2018-05-05 09:10)
DX: N65.0 Deformity of reconstructed breast (principal); Z86.14 Personal history of Methicillin resistant Staphylococcus aureus infection; N61.1 Abscess of the breast and nipple; L90.5 Scar conditions and fibrosis of skin; E89.0 Postprocedural hypothyroidism; Z87.891 Personal history of nicotine dependence
CPT/HCPCS: 36415; 36569; 80048; 80202; 84134; 85027; 87070; 87075; 87102; 87205; 87206; 87640; 88307; 99406; J7040; J7120; A4216; J2405

== ENCOUNTER → 2018-05-08 13:52 | Outpatient (CLI) | payer MEDICAID, SELFPAY ==
--- NOTE | 2018-05-08 14:00 | NURSING ---
PT HERE FOR CLOTTED PICC LINE. PAPER MACHINE TENDER AND CAP REMOVED FROM PICC LINE, MCKEON FLUSH AND BLOOD RETURN NOTED WITH 10ML 0.9% NS FLUSH, NEW CAP AND PAPER MACHINE TENDER APPLIED. SOME DRY BLOOD NOTED UNDER DRESSING AROUND INSERTION SITE, PT STATES SHE HAD TO APPLY A PRESSURE DRESSING AFTER INSERTION. DRESSING STILL SEALED OFF, NO ACTIVE BLEEDING.
== END ==
PROVIDERS: Family Provider Student in an Organized Health Care Education/Training Program; PCP Student in an Organized Health Care Education/Training Program; Visit Provider Surgery
DX: T82.868A Thrombosis due to vascular prosthetic devices, implants and grafts, initial encounter (principal); Z45.2 Encounter for adjustment and management of vascular access device
CPT/HCPCS: J2997

== ENCOUNTER 2018-05-19 21:04 | Inpatient (IN) | payer MEDICAID, SELFPAY ==
--- NOTE | 2018-05-19 14:45 | ABS_PTH ---
PATIENT: ROBLES CARRASQUILLO LOC: MS2 U#:[id number] AGE/SX: 48/F ROOM: [facility] [place] RE05/19/[address]: Dr. Sean Stevenson MD : 1970 BED: 1 DIS: 05/21/2018 SPEC #: [id number] RECD: 05/20/18 08:15 STATUS: HAMIDA RE #: [id number] ROSE: 05/19/18 14:[address]: Sean Stevenson DEPT: SURGICAL PATHOLOGY RECD BY: Whitney Isidro ENTERED: 05/20/18 10:32 SP TYPE: Abscess OTHR DR: MD Jonn Glez MD Harriet Jakob, MD Dr. Jordan Garrison, DO Mohamud Mohamed, MD Dr. Nicholas F Kotsonis, MD Pramod Nepal, MD Dr. Robert Leininger, MD Tissues: A - Right breast, NOS B - FOREIGN BODY Procedures: Surgery Specimen Level I Surgery Specimen Level III HEADER OPERATION: Removal, breast implant PRE-OP DIAGNOSIS: Recurrent infections, bilateral breast acquired abscess right breast, bilateral macromastia status post breast reduction mammaplasty TISSUE SUBMITTED: A. Right breast abscess B. Right breast implant MICROSCOPIC DIAGNOSIS A. Right breast abscess: Fragments of fibroconnective tissue and skeletal muscle tissue with acute and chronic inflammation and foreign body giant cell reaction. B. Right breast implant: Breast implant (gross only). SJ:latha 05/21/18 MICROSCOPIC DESCRIPTION Slides are reviewed. GROSS DESCRIPTION A - Received is one container labeled with the patient's name and not further designated. The specimen consists of 11 fragments of soft tissue, indurated tissue and blood clots aggregating to 15 x 13 x 2 cm. Serial sections do not reveal mass lesions. Cigarette Tester sections are submitted in three cassettes. B - Received in fixative is one container labeled with the patient's name and designated right breast implant. The specimen consists of a breast implant that is intact without tears or breaks and measures 5 cm in diameter and 6 cm in thickness and bears the follows inscriptions ?MENTOR.? No soft tissue is adherent to the implant. No sections are submitted. / AM:latha 05/20/18 TC:2 CPT: 48165, 04506
--- NOTE | 2018-05-19 14:56 | PCM.PN.BLA ---
Progress Note DATE OF PREVIOUS HISTORY AND PHYSICAL - MAY 04, 2018. DATE OF PREVIOUS SURGERY - MAY 05, 2018. Patient had surgery on 05/05/18 where she underwent delayed right breast reconstruction with removal of saline tissue assistant chief engineer with replacement cohesive gel implant (800 ml) and placement of Alloderm acellular dermal matrix graft inferolateral sling (132 cm2) and revision reconstructed right breast with excision nonhealing ulcer and excess mastectomy skin scar contour deformity. She has a history of MRSA and was placed on Vancomycin for home. She did well postop until a couple of days ago when she felt weak and nauseated. She felt febrile. Her right breast was warm with some redness. There was all of a sudden an increase in drainage with some milky looking fluid. I talked to her last night and since she was seeing me in the office today, she didn't want to go to the ED last night. So I added Levaquin antibiotics to the Vancomycin she was already on. I saw her in the office early this afternoon. Her right breast was warm and swollen and red. Some tenderness to palpation. The fluid in the drain appeared milky and yellow. She stated she felt lousy and weak and nauseated. Her temp in the office was 99.5. She has labs drawn weekly because of the Vancomycin and had them done yesterday. Her WBC was 16.6. She has a history of recurrent breast infections which ultimately led to a right breast mastectomy last March. In that early postop period, she became septic with blood pressure in the 60-70s. This required an urgent I&D with packing of the wound until healed. Culture at that time showed MRSA. Her symptomatology has worsened in the last 24 hours. I am concerned that she will have another septic episode similar to last year. So it was recommended to the patient to emergently go to surgery today for I&D of the right breast reconstruction abscess with removal of the cohesive gel implant. The breast wound may be left open and packed. If so, a VAC will be placed tomorrow. Discussed with the patient, that we will need to wait at least 6 months before considering additional breast reconstruction. Since she is already on Vancomycin, and Levaquin was started last night, will add Flagyl for the surgery. Patient was informed of the risks and complications of the procedure including alternatives to surgery. These were discussed with the patient personally. Patient voices understanding and wishes to proceed. She understands the wound may be left open and packed. Will have Hospitalists involved for medical management. Will consult ID for antibiotic assistance. If the wound is left open, she will [facility].
[2018-05-19 15:01] VITALS: BP 155/91; PULSE 111; RESP 18; TEMP 36.2; O2SAT 96; BMI 47.0
[2018-05-19] MEDS: levoFLOXacin IV 500 MG/100 ML BAG 100 MG IV (15:30)
--- NOTE | 2018-05-19 16:47 | PCM.RX.CS ---
Consult Pharmacy has been consulted to manage selected antiobiotic: Vancomycin Type of Consult: New start Suspected Infection: Skin/Soft tissue Prior Doses of Antibiotics Received/Current Regimen: Vancomycin 1750mg q12h from home. Weight used for dosin kg Estimated Creatinine Clearance: >100ml/min Goal Trough: 15-20 mcg/mL Pharmacy Plan for Drug Dosing: Recommend keeping pt on the same dose/schedule that she has been on at home (Vancomycin 1750mg IV q12h) and checking the trough level on 05/21/18 at 0730 Pharmacy Service will continue to monitor and adjust dosing as required. Follow-Up Labs: Trough Vancomycin - 05/21/18 at 0730 Labs to be done on [date and time ordered]: trough level on 05/21/18 at 0730
[2018-05-19 20:40] VITALS: BP 131/72; BP 155/91; PULSE 101; RESP 18; TEMP 37.3; O2SAT 96
[2018-05-19 20:45] VITALS: BP 125/76; BP 155/91; PULSE 91; RESP 18; O2SAT 93
--- NOTE | 2018-05-19 20:51 | PCM.IMDPSTOP ---
Immediate Post-Op Note Date of Procedure: 05/19/18 Primary Surgeon/Physician: Sean Stevenson immigration investigator: Rony Gotti. Pre-Operative Diagnosis: 1. Infected right breast implant reconstruction with abscess. 2. History of recurrent infections bilateral breasts. 3. s/p completion mastectomy right breast. 4. Acquired absence right breast. 5. Disproportion reconstructed breasts. 6. Former smoker. 7. MRSA. 8. s/p delayed right breast reconstruction with removal of saline tissue buckle strap puncher with replacement cohesive gel implant (800 ml) and placement of Alloderm acellular dermal matrix graft inferolateral sling (132 cm2) and revision reconstructed right breast with excision nonhealing ulcer and excess mastectomy skin scar contour deformity. Post-Operative Diagnosis: Same. Surgery/Procedure Performed:: Revision right breast reconstruction with incision and drainage and excisional debridement abscess with capsulectomy and removal infected breast implant. Description of Surgical Findings:: Patient had surgery on 05/05/18 where she underwent delayed right breast reconstruction with removal of saline tissue buckle strap puncher with replacement cohesive gel implant (800 ml) and placement of Alloderm acellular dermal matrix graft inferolateral sling (132 cm2) and revision reconstructed right breast with excision nonhealing ulcer and excess mastectomy skin scar contour deformity. She has a history of MRSA and was placed on Vancomycin for home. She did well postop until a couple of days ago when she felt weak and nauseated. She felt febrile. Her right breast was warm with some redness. There was all of a sudden an increase in drainage with some milky looking fluid. I talked to her last night and since she was seeing me in the office today, she didn't want to go to the ED last night. So I added Levaquin antibiotics to the Vancomycin she was already on. I saw her in the office early this afternoon. Her right breast was warm and swollen and red. Some tenderness to palpation. The fluid in the drain appeared milky and yellow. She stated she felt lousy and weak and nauseated. Her temp in the office was 99.5. She has labs drawn weekly because of the Vancomycin and had them done yesterday. Her WBC was 16.6. She has a history of recurrent breast infections which ultimately led to a right breast mastectomy last March. In that early postop period, she became septic with blood pressure in the 60-70s. This required an urgent I&D with packing of the wound until healed. Culture at that time showed MRSA. Her symptomatology has worsened in the last 24 hours. I am concerned that she will have another septic episode similar to last year. So it was recommended to the patient to emergently go to surgery today for I&D of the right breast reconstruction abscess with removal of the cohesive gel implant. The breast wound may be left open and packed. If so, a VAC will be placed tomorrow. Today the patient urgently underwent revision right breast reconstruction with incision and drainage and excisional debridement abscess with capsulectomy and removal infected breast implant. Size of defect right breast - 17 x 35 x 5 cm. Estimated Blood Loss: 100 ml. Specimen's removed: 1. Right breast tissue and capsule to Pathology and Microbiology. 2. MRSA Wound DNA by PCR. Drains: None. Type of Anesthesia:: General - Admit VTE Documentation VTE Present on Admission: No VTE Mechan Device Prophylaxis: SCD's VTE Pharm Prophylaxis ordered?: Yes
[2018-05-19 21:00] VITALS: BP 123/68; BP 155/91; PULSE 90; RESP 16; TEMP 37.2; O2SAT 98
[2018-05-19] MEDS: Lactated Ringers 1,000 ML 60 ML IV (21:05)
[2018-05-19 21:27] LABS: M R Staph aureus DNA By PCR Negative (Negative); Probe Check PASS; Specimen Processing Control PASS; Staph aureus DNA By PCR NEGATIVE (Negative)
[2018-05-19 21:44] VITALS: BP 128/74; PULSE 90; RESP 16; TEMP 36.5; O2SAT 95
[2018-05-19] MEDS: HYDROmorphone 2 MG TABLET PO (22:13)
[2018-05-19] MEDS: diazePAM 5 MG Tablet PO (22:57)
[2018-05-19] MEDS: proMETHazine 25 MG Tablet PO (22:57)
[2018-05-19] MEDS: Magnesium Oxide 400 MG Tablet 200 MG PO (22:58)
[2018-05-19] MEDS: Ascorbic Acid 500 MG Tablet 1000 MG PO (22:59)
[2018-05-19] MEDS: Nortriptyline 25 MG Capsule 50 MG PO (22:59)
[2018-05-19] MEDS: Calcium Carb/Vitamin D 1 TABLET Tablet PO (23:00)
[2018-05-19] MEDS: Docusate Sodium 100 MG Capsule PO (23:00)
[2018-05-19] MEDS: Iron Polysaccharide Complex 150 MG CAPSULE PO (23:00)
--- NOTE | 2018-05-19 23:15 | PCM.OPRPT ---
Report of Operation Date of Procedure: 05/19/18 Pre-Operative Diagnosis: 1. Infected right breast implant reconstruction with abscess. 2. History of recurrent infections bilateral breasts. 3. s/p completion mastectomy right breast. 4. Acquired absence right breast. 5. Disproportion reconstructed breasts. 6. Former smoker. 7. MRSA. 8. s/p delayed right breast reconstruction with removal of saline tissue negative cleaner with replacement cohesive gel implant (800 ml) and placement of Alloderm acellular dermal matrix graft inferolateral sling (132 cm2) and revision reconstructed right breast with excision nonhealing ulcer and excess mastectomy skin scar contour deformity. Post-Operative Diagnosis: Same. Surgery/Procedure Performed:: Revision right breast reconstruction with incision and drainage and excisional debridement abscess with capsulectomy and removal infected breast implant. Description of Surgical Findings:: Patient had surgery on 05/05/18 where she underwent delayed right breast reconstruction with removal of saline tissue negative cleaner with replacement cohesive gel implant (800 ml) and placement of Alloderm acellular dermal matrix graft inferolateral sling (132 cm2) and revision reconstructed right breast with excision nonhealing ulcer and excess mastectomy skin scar contour deformity. She has a history of MRSA and was placed on Vancomycin for home. She did well postop until a couple of days ago when she felt weak and nauseated. She felt febrile. Her right breast was warm with some redness. There was all of a sudden an increase in drainage with some milky looking fluid. I talked to her last night and since she was seeing me in the office today, she didn't want to go to the ED last night. So I added Levaquin antibiotics to the Vancomycin she was already on. I saw her in the office early this afternoon. Her right breast was warm and swollen and red. Some tenderness to palpation. The fluid in the drain appeared milky and yellow. She stated she felt lousy and weak and nauseated. Her temp in the office was 99.5. She has labs drawn weekly because of the Vancomycin and had them done yesterday. Her WBC was 16.6. She has a history of recurrent breast infections which ultimately led to a right breast mastectomy last March. In that early postop period, she became septic with blood pressure in the 60-70s. This required an urgent I&D with packing of the wound until healed. Culture at that time showed MRSA. Her symptomatology has worsened in the last 24 hours. I am concerned that she will have another septic episode similar to last year. So it was recommended to the patient to emergently go to surgery today for I&D of the right breast reconstruction abscess with removal of the cohesive gel implant. The breast wound may be left open and packed. If so, a VAC will be placed tomorrow. Patient was informed of the risks and complications of the procedure including alternatives to surgery. These were discussed with the patient personally. Patient voices understanding and wishes to proceed. Patient understands the wound may be left open initially. Size of defect right breast - 17 x 35 x 5 cm. splicer apprentice: Rony Gotti. Type of Anesthesia:: General Specimen's removed: 1. Right breast tissue and capsule to Pathology and Microbiology. 2. MRSA Wound DNA by PCR. Drains: None. Estimated Blood Loss (mL): 100 ml. Description of Procedure: Patient was taken to OR in supine position and was placed under general anesthesia. The drain was then removed before prepping. There was pus in the drain and after it was pulled, there was pus that was leaking through the drain hole. Her breasts were prepped and draped in the usual fashion. Using scissors, I opened up the previous incision in its entirety. A lot of fat necrosis was present. A lot of milky pus was present along with a filmy exudate. The biologic graft was removed and the cohesive gel implant was removed without evidence of compromise or injury. There was capsular tissue that was covered with this filmy exudate. A capsulectomy was performed. Using a large curette, the chest wall was sharply debrided along with the sides of the wound. Good bleeding was seen after the excisional debridement. The extensive fat necrosis was sharply excised and debrided. Some of this debrided tissue and some of the capsulectomy and some of the purulent filmy exudate was sent to Microbiology for culture. The rest of the tissue was sent to pathology for analysis to rule out carcinoma. A MRSA Wound DNA by PCR was also done. She has a history of MRSA. The wound was copiously irrigated with saline. Hemostasis was obtained with electrocautery. The size of the wound after incision and drainage and excisional debridement was 17 x 35 x 5 cm. The wound was dressed with Mepitel nonadherent dressing followed by Kerlix gauze with Betadine and then followed by dry Kerlix gauze followed by ABD pads and a compression chest wall binder. Patient tolerated the procedure well and was sent to PACU in satisfactory condition. She will be admitted upstairs for continued postop care. The VAC will be applied tomorrow. Will have the Hospitalist Group consulted for medica management. Will have Infectious Diseases consulted for antibiotic management. She already has a PICC line in and was getting IV Vancomycin at home when this infection started. Anticipate increased metabolic demands from the infection, surgery, and size of the wound. Will check a Prealbumin and encourage nutritional supplementation with protein to help the healing process. After discharge, will followup at the [facility]. Grafts/Implants Used: None. - Complications None. - Admit VTE Documentation VTE Present on Admission: No VTE Mechan Device Prophylaxis: SCD's VTE Pharm Prophylaxis ordered?: Yes Code Visit Surgery Charges CPT - 77676 ICD-10 - N61.1, T85.79xA, Z90.11, N65.1, N65.0, Z86.14, Z98.82, Z40.01 41687 N61.1, T85.79xA, Z90.11, N65.1, N65.0, Z86.14, Z98.82, Z40.01
[2018-05-19 23:44] VITALS: BP 153/82; PULSE 95; RESP 18; TEMP 36.6; O2SAT 95
[2018-05-20] MEDS: HYDROmorphone 1 MG/ML Syringe IV ×7 (00:12→20:24)
[2018-05-20 01:44] VITALS: BP 116/74; PULSE 88; RESP 16; TEMP 36.7; O2SAT 93
[2018-05-20 04:58] LABS: Hematocrit 32.2 % (37-47); Hemoglobin 10.1 g/dl (12.0-15.0); Mean Corp Hgb Conc 31.4 g/gl (32-36); Mean Corpuscular Hgb 29.8 pg (27.0-32.0); Mean Platelet Vol. 9.8 fl (6.2-12.0); Platelet Count 262 K/mm3 (150-450); RBC Distribution Width SD 53.5 fl (35.1-43.9); Red Blood Count 3.39 M/mm3 (4.2-5.4); White Blood Count 8.3 K/mm3 (4.4-11.0)
[2018-05-20 05:04] LABS: Scan Indicated on CBC? Y/N NO
[2018-05-20 05:34] LABS: Erythrocyte Sedimentation Rate 88 mm/hr (0-20)
[2018-05-20 05:39] LABS: Anion Gap 10 (5-15); BUN 6 mg/dL (7-18); BUN/Creat Ratio 10.2 RATIO (10-20); Calcium,Total 8.7 mg/dL (8.5-10.1); Chloride 104 mmol/L (98-107); Creatinine, Serum 0.59 mg/dL (0.55-1.02); EST Glomerular Filtration Rate 116 mL/min (>60); Est Glom Filt Rate - Afr Amer 141 mL/min (>60); Estimated Creatinine Clearance 111.54 ml/min; Glucose 126 mg/dL (74-106); Potassium 3.6 mmol/L (3.5-5.1); Prealbumin 12.6 mg/dL (20.0-40.0); Sodium Level 141 mmol/L (136-145)
[2018-05-20] MEDS: Levothyroxine 100 MCG Tablet 200 MCG PO (05:56)
[2018-05-20 07:56] VITALS: BP 132/76; PULSE 95; RESP 14; TEMP 36.6; O2SAT 100
[2018-05-20] MEDS: Multivitamins,Ther W-Minerals Tablet 1 TABLET PO (07:58)
[2018-05-20] MEDS: Ascorbic Acid 500 MG Tablet 1000 MG PO ×2 (09:21→22:15)
[2018-05-20] MEDS: Calcium Carb/Vitamin D 1 TABLET Tablet PO ×2 (09:21→22:16)
[2018-05-20] MEDS: Enoxaparin 40 MG/0.4 ML Syringe SC (09:21)
[2018-05-20] MEDS: buPROPion (XL) 150 MG TABLET.XL 450 MG PO (09:22)
[2018-05-20] MEDS: FLUoxetine 20 MG Capsule 40 MG PO (09:22)
[2018-05-20] MEDS: Iron Polysaccharide Complex 150 MG CAPSULE PO ×2 (09:22→22:15)
[2018-05-20] MEDS: Docusate Sodium 100 MG Capsule PO ×2 (09:22→22:16)
[2018-05-20] MEDS: diazePAM 5 MG Tablet PO ×2 (11:13→22:56)
--- NOTE | 2018-05-20 11:22 | NURSING ---
wound photo: right chest
--- NOTE | 2018-05-20 11:43 | PCM.HP.ID ---
Problem List (1) Abscess of right breast Status: Chronic Comment: N61.1 involving inferomedial periareolar area Reason for Consult: breast abscess Consulted by: Dr. Stevenson History of Present Illness: The patient is a 48 year old F with h/o R breast MRSA infection s/p implant, admitted 04/2017 with septic shock. Had implant removed, given course of iv vanc. Did well, then taken back for tissue lay out machine operator placement. Given 6 week course of iv vanc at that time more as a preventative measure, and then picc removed and she was doing well. 2 weeks ago on 05/05/18, had lay out machine operator removed and implant placed. Picc was put back in, has been on iv vanc at home since then. On 05/17 had heavy drain output of thick pus. Associated with chills and redness/induration/swelling/pain in R breast. Called Dr. Stevenson, started on po levaquin 05/18. No improvement, taken back to OR 05/19 for removal of implant and I&D. Given dose of levaquin and flagyl. Now on iv vanc, wound vac in place. Full ROS performed and neg except as noted above. 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) nonhealing ulcer right breast reconstruction History of MRSA infection (Chronic) History of Graves' disease (Chronic) treated with radiation ablation HTN (hypertension) (Chronic) Anemia (Chronic) Personal hx of gastric bypass (Chronic) 2009 Morbid obesity (Chronic) Depression (Chronic) Disproportion of reconstructed breast (Chronic) N65.1 disproportion reconstructed breasts Abscess of right breast (Chronic) N61.1 involving inferomedial periareolar area Abscess of left breast (Chronic) N61.1 recurrent left breast infection in medial periareolar area Skin ulcer of other site (Chronic) nonhealing recurrent infected ulcer left breast at medial periareolar area Macromastia (Chronic) N62 bilateral macromastia Neck pain (Chronic) M54.2 Back pain, thoracic (Chronic) M54.6 Intertrigo (Chronic) L30.4 inframammary intertrigo Shoulder pain (Chronic) M25.519 bilateral shoulder pain from the weight of her breasts on her bra straps Smoker (Chronic) Stopped smoking less than 1 month ago (Chronic) Former smoker (Chronic) Z87.891 Anxiety (Chronic) Allergies/Adverse Reactions: Allergies codeine Allergy (Verified 05/19/18 13:15) Rash Penicillins Allergy (Verified 05/19/18 13:15) Rash NSAIDS (Non-Steroidal Anti-Inflamma Adverse Reaction (Verified 05/19/18 13:15) Other UNABLE TO TAKE DUE TO WEIGHT LOSS SURGERY Home Medications: Ambulatory Orders Medication Instructions Recorded Levothyroxine [Synthroid] 200 mcg PO DAILY 03/19/14 Calcium Carbonate/Vitamin D3 1 ea PO BID 08/15/15 [Calcium 600-Vit D3 400 Caplet] Cholecalciferol (VIT D3) [Vitamin 2,000 unit PO DAILY 08/15/15 D3] Multivitamins,Ther W-Minerals 1 tab PO DAILY 08/15/15 [Multivitamin With Minerals] Nortriptyline HCl [Pamelor] 50 mg PO QHS 04/03/16 buPROPion XL [Wellbutrin Xl] 450 mg PO DAILY 04/18/17 Iron Polysaccharide Complex 150 mg PO BID 05/01/17 [Ferrex 150] Acetaminophen [Tylenol] 1,000 mg PO Q8H PRN #1 tab 05/06/17 Ascorbic Acid [Vitamin C] 1,000 mg PO BID 12/03/17 Fluoxetine HCl [Prozac] 40 mg PO DAILY 12/03/17 Magnesium 250 mg PO QHS 12/03/17 Docusate Sodium [Colace] 100 mg PO BID #60 cap 12/18/17 proMETHazine tablet [Phenergan 25 mg PO 4X/DAY PRN PRN #30 tab 12/18/17 tablet] Zolpidem Tartrate [Ambien] 10 mg PO QHS 04/07/18 Vancomycin IV 1,750 mg IV Q12H 40 Days #80 vial 05/06/18 Diazepam [Valium] 5 mg PO 4X/DAY PRN #20 tab 05/07/18 DiphenhydrAMINE [Benadryl] 50 mg PO 4X/DAY PRN capsule 05/07/18 HYDROmorphone tablet [Dilaudid] 2 - 4 mg PO 4X/DAY PRN PRN 5 Days 05/07/18 #40 tab levofloxacin 750 mg tablet 750 mg PO QDAY #14 tab 05/18/18 - Social History SMOKING STATUS:: Former smoker Vital Signs Temp Pulse Resp BP Pulse Ox 97.9 F 95 14 132/76 H 100 05/20/18 07:56 05/20/18 07:56 05/20/18 07:56 05/20/18 07:56 05/20/18 07:56 Oxygen Delivery Method Room Air Weight: 132.1 kg Body Mass Index (BMI) 47.0 Laboratory Tests Past 24 Hrs 05/19/18 05/20/18 05/20/18 19:50 04:20 04:20 WBC 8.3 RBC 3.39 L Hgb 10.1 L Hct 32.2 L MCV 95.0 MCH 29.8 MCHC 31.4 L RDW 16.0 H RDW Differential 53.5 H Plt Count 262 MPV 9.8 ESR 88 H Sodium 141 Potassium 3.6 Chloride 104 Carbon Dioxide 27.0 Anion Gap 10 BUN 6 L Creatinine 0.59 Estim Creat Clear Calc 111.54 Est GFR (MDRD) Af Amer 141 Est GFR (MDRD) Non-Af 116 BUN/Creatinine Ratio 10.2 Glucose 126 H Calcium 8.7 C-React Prot Ext Range 138.00 H Prealbumin 12.6 L S.aureus Protein A PCR NEGATIVE MRSA (PCR) Negative - Other Studies Radiology: [] reviewed Other Studies: [] Route of nutrition/ use of supplements: [] Nutritional Intake: [] IV Site: [] Lopez Catheter: [] - Physical Exam General: Alert, Oriented x3, Cooperative, No apparent distress HEENT: Atraumatic, PERRLA, EOMI Neck: Supple, No Nodes Lungs: Clear to auscultation, Normal air movement Cardiovascular: Regular rate, Regular Rhythm Abdomen: Soft, Non Tender, Non-Distended Extremities: No edema Skin: No rashes, Ulcer/ Wound - R breast with wound vac in place, reviewed photos IV Site: PICC, without redness Musculoskeletal: No Tenderness to Palpation of Joints or Extremities Neurological: Cranial nerves II-XII grossly intact - Assessment/Plan Antibiotics: [] Assessment/Plan: [] R breast infection s/p implant placement 05/05/18 with prior h/o MRSA - now s/p removal of implant and debridement with wound vac placement 05/19/[address] Stevenson. Given that this started while she was on iv vanc, will cover more broadly. Had been on levaquin for a few days prior to surgery. Reports rash with PCN about 15-20 years ago. Thinks she may have done ok with augmentin in the past. Will continue vanc and add cefepime while cxs pending. MRSA pcr was neg. Surg cx pending. Will follow, thank you.
--- NOTE | 2018-05-20 12:38 | CASEMGMT ---
Addendum entered by Huey Guevara 05/20/18 13:38: Call received from Joanie @ [facility]. They are able to continue pt's care under [facility]. Call to [facility] to update. NERY MEEKS spoke with Mona-updated that [facility] will continue care @ home for wound vac and IV antibiotics. Original Note: NERY MEEKS Note: Pt will have wound vac on discharge. [facility] cannot bill for wound vac, will need to set up with another Home Health agency. Has [facility] for IV antibiotic infusion already. -Call to [facility] to notify new Home Health agency will need to be set up. Referral packet with new HH order faxed to [facility] @ . Awaiting call back. -ID on consult. New script for IV antibiotics to be faxed to [facility] on dc. Urbano HUYNH RN ACM
[2018-05-20 14:07] VITALS: BP 116/77; PULSE 94; RESP 16; TEMP 36.5; O2SAT 95
[2018-05-20] MEDS: Lactated Ringers 1,000 ML 60 ML IV (14:13)
--- NOTE | 2018-05-20 15:13 | PCM.CONS.GEN ---
Problem List (1) History of Graves' disease Status: Chronic Comment: treated with radiation ablation (2) HTN (hypertension) Status: Chronic Qualifiers: Hypertension type: essential hypertension Qualified Code(s): I10 - Essential (primary) hypertension (3) Anemia Status: Chronic (4) Personal hx of gastric bypass Status: Chronic Comment: 2010 (5) Morbid obesity Status: Chronic (6) Depression Status: Chronic (7) Infected wound Status: Acute (8) Hypothyroid Status: Chronic (9) Anxiety Status: Chronic Reason for Consult Date of Consultation: 05/20/18 Reason for Consultation: Medical management History of Present Illness: The patient is a 48 year old F with a h/o graves disease treated with radioactive iodine and is now hypothyroid, as well as right breast cancer s/p mastectomy and reconstruction, gastric bypass for morbid obesity, anemia from B12 deficiency and iron deficiency, and anxiety and depression presenting with right breast infection from her implant. She has had difficulty with this in the past and has been on several courses of vancomycin d/t infected spacer. She is s/p removal of the breast implant and wash out with a wound vac in place. From a medical standpoint her medications have been stable and her conditions have been stable. She has had issue in the past with her TSH and was recently increased to 200 mcg. 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) nonhealing ulcer right breast reconstruction History of MRSA infection (Chronic) History of Graves' disease (Chronic) treated with radiation ablation HTN (hypertension) (Chronic) Anemia (Chronic) Personal hx of gastric bypass (Chronic) 2009 Morbid obesity (Chronic) Depression (Chronic) Disproportion of reconstructed breast (Chronic) N65.1 disproportion reconstructed breasts Abscess of right breast (Chronic) N61.1 involving inferomedial periareolar area Abscess of left breast (Chronic) N61.1 recurrent left breast infection in medial periareolar area Skin ulcer of other site (Chronic) nonhealing recurrent infected ulcer left breast at medial periareolar area Macromastia (Chronic) N62 bilateral macromastia Neck pain (Chronic) M54.2 Back pain, thoracic (Chronic) M54.6 Intertrigo (Chronic) L30.4 inframammary intertrigo Shoulder pain (Chronic) M25.519 bilateral shoulder pain from the weight of her breasts on her bra straps Smoker (Chronic) Stopped smoking less than 1 month ago (Chronic) Former smoker (Chronic) Z87.891 Hypothyroid (Chronic) Anxiety (Chronic) Medical History: Medical History (Last Reviewed 11/13/17 @ 09:21 by Tiff Abdi) Abscess L02.91 right breast Anemia D64.9 Anxiety F41.9 BREAST LUMP/CYST COMPROMISED BILATERAL BREAST REDUCTION NIPPLE GRAFTS Depression (emotion) F32.9 Disproportion of reconstructed breast N65.1 Graves disease E05.00 S/P THYROIDECTOMY COMPLETE 11/2001 Hypertriglyceridemia E78.1 Hypothyroidism Onset Date: ~2001 E03.9 MRSA (methicillin resistant staph aureus) culture positive Z22.322 Metabolic syndrome E88.81 NONHEALING SURGICAL WOUND RIGHT BREAST RIGHT LATERAL AND RIGHT MEDIAL BREAST AND TZONE RIGHT BREAST NONHEALING ULCER LEFT BREAST AT VERTICAL INCISION Obesity E66.9 Ovarian cyst N83.209 RECURRENT INFECTED ULCER LEFT BREAST RECURRENT NONHEALING INFECTED MRSA ULCER RIGHT BREAST Seasonal allergies J30.2 Hypertension I10 Allergies codeine Allergy (Verified 05/19/18 13:15) Rash Penicillins Allergy (Verified 05/19/18 13:15) Rash NSAIDS (Non-Steroidal Anti-Inflamma Adverse Reaction (Verified 05/19/18 13:15) Other UNABLE TO TAKE DUE TO WEIGHT LOSS SURGERY Home Medications: Ambulatory Orders Medication Instructions Recorded Levothyroxine [Synthroid] 200 mcg PO DAILY 03/19/14 Calcium Carbonate/Vitamin D3 1 ea PO BID 08/15/15 [Calcium 600-Vit D3 400 Caplet] Cholecalciferol (VIT D3) [Vitamin 2,000 unit PO DAILY 08/15/15 D3] Multivitamins,Ther W-Minerals 1 tab PO DAILY 08/15/15 [Multivitamin With Minerals] Nortriptyline HCl [Pamelor] 50 mg PO QHS 04/03/16 buPROPion XL [Wellbutrin Xl] 450 mg PO DAILY 04/18/17 Iron Polysaccharide Complex 150 mg PO BID 05/01/17 [Ferrex 150] Acetaminophen [Tylenol] 1,000 mg PO Q8H PRN #1 tab 05/06/17 Ascorbic Acid [Vitamin C] 1,000 mg PO BID 12/03/17 Fluoxetine HCl [Prozac] 40 mg PO DAILY 12/03/17 Magnesium 250 mg PO QHS 12/03/17 Docusate Sodium [Colace] 100 mg PO BID #60 cap 12/18/17 proMETHazine tablet [Phenergan 25 mg PO 4X/DAY PRN PRN #30 tab 12/18/17 tablet] Zolpidem Tartrate [Ambien] 10 mg PO QHS 04/07/18 Vancomycin IV 1,750 mg IV Q12H 40 Days #80 vial 05/06/18 Diazepam [Valium] 5 mg PO 4X/DAY PRN #20 tab 05/07/18 DiphenhydrAMINE [Benadryl] 50 mg PO 4X/DAY PRN capsule 05/07/18 HYDROmorphone tablet [Dilaudid] 2 - 4 mg PO 4X/DAY PRN PRN 5 Days 05/07/18 #40 tab levofloxacin 750 mg tablet 750 mg PO QDAY #14 tab 05/18/18 Surgical History: Surgical History (Last Updated 10/07/17 @ 12:37 by Tiff Abdi) BILATERAL BREAST REDUCTION MAMMAPLASTY WITH BILATERAL FREE NIPPLE GRAFT RECONSTRUCTION, TISSUE REMOVED FROM THE LEFT BREAST WAS 702 GRAMS, TISSUE REMOVED FROM THE RIGHT BREAST WAS 1400 GRAMS 10/01/2016 COMPLETE THYROIDECTOMY DUE TO GRAVES' DISEASE Onset Date: ~11/2001 Delivered by section O82 09/1998 AND 01/2001 EXCISIONAL DEBRIDEMENT RECURRENT NONHEALING INFECTED MRSA ULCER RIGHT BREAST AND COMPROMISED SKIN GRAFT RIGHT NIPPLE WITH COMPLETION MASTECTOMY 04/18/2017 EXCISIONL DEBRIDEMENT NONHEALING RECURRENT INFECTED ULCER LEFT BREAST AT MEDIAL PERIAREOLAR AREA WITH COMPLEX SECONDARY WOUND CLOSURE 12/28/2015 AND 04/04/2016 Gastric bypass status for obesity Z98.84 04/10/2010 [place] 158 LBS LOSS HERNIA REPAIR WITH MESH Onset Date: ~2014 History of bilateral ligation of fallopian tubes Onset Date: ~2000 Z98.51 History of incisional hernia repair Onset Date: 07/03/10 Z98.890, Z87.19 History of tonsillectomy Onset Date: ~12/2003 Z98.890, Z90.89 INCISION AND DRAINAGE BREAST ABSCESS 03/2015 AND 07/2015 MASTOTOMY RIGHT BREAST WITH INCISION AND DRAINAGE ABSCESS AND EXCISION WITH PARTIAL MASTECTOMY 06/07/2016 PANICULECTOMY Onset Date: ~04/2013 S/P complete hysterectomy Z90.710 02/2007 BENIGN REASON ( OVARIAN CYST, AND DYSFUNCTIONAL UTERINE BLEEDING ), ON HRT FOR ONE YEAR AFTER HYSTERECTOMY SURGICAL PREPARATION AND REVISION BREAST RECONSTRUCTION RIGHT BREAST RECONSTRUCTION WITH EXCISIONAL DEBRIDEMENT NONHEALING SURGICAL WOUNDS LATERAL ASPECT AND MEDIAL ASPECT WITH SECONDARY WOUND CLOSURE AND EXCISIONAL DEBRIDEMENT COMPROMISED GRAFT ULCERATION NIPPLE AREA AND NONHEALING SURGICAL WOUND T ZONE AREA WITH FTSG FROM RIGHT LATERAL BREAST (25 CM2) 11/21/2016 SURGICAL PREPARATION LEFT BREAST WITH MASTECTOMY AND INCISION AND DRAINAGE AND EXCISIONAL DEBRIDEMENT RECURRENT LEFT BREAST INFECTION ULCER WITH 3 CM PARTIAL SECONDARY WOUND CLOSURE 11/21/2015 SURGICAL PREPARATION RIGHT BREAST WITH INCISION AND DRAINAGE AND EXCISIONAL DEBRIDEMENT, NONHEALING INFECTED NIPPLE GRAFT ULCER (63 SQUARE CM) 01/10/2017 Surgical History: - Psychiatric History: Anxiety, Depression Smoking Status: Former smoker - *Family History Paternal Family History: Family History (Last Updated 10/07/17 @ 12:54 by Tiff Abdi) Father Hypertension Hyperlipidemia Acute depression Diabetes Mother Asthma Grandmother Diabetes Heart disease Grandmother Hypertension Diabetes Grandfather Parkinson disease Brother Asthma Aunt Thyroid cancer Uncle Thyroid cancer History Items: - Review of Systems Constitutional: Denies: Chills, Fever, Weight Change HEENT: Denies: Head Aches, Sinus Congestion, Sinus Drainage Cardiovascular: Denies: Chest Pain, Palpitations Respiratory: Denies: Cough, Shortness of breath at rest, Sputum production Gastrointestinal: Denies: Abdominal Pain, Nausea, Vomiting Genitourinary: Denies: Dysuria Musculoskeletal: Denies: Joint Pain, Joint Tenderness Skin: Reports: Wounds - pain in her right breast Neurological: Denies: Numbness, Tingling, Focal weakness Psychiatric: Reports: Anxiety, Depression. Denies: Homicidal Ideations, Suicidal Ideations Hematologic/ Lymphatic: Denies: Easy Bruising, Easy Bleeding - Physical Exam General: Alert, Oriented x3, Cooperative, No apparent distress HEENT: Atraumatic, EOMI, Normocephalic Oral: Moist Mucosa Neck: Supple, No JVD Lungs: Clear to auscultation, Normal air movement, No rhonchi, No wheeze, No rales Cardiovascular: Regular rate, Regular Rhythm, Normal S1, Normal S2, No murmurs Abdomen: Soft, Non Tender, Non-Distended, No Hepato-splenomegaly Extremities: No edema Skin: - - Right breast wound with wound vac in place Neurological: Motor Exam 5/5 strength throughout, Sensory exam intact to light touch and pain Psych/Mental Status: Normal Affect, Appropriate Vital Signs Temp Pulse Resp BP Pulse Ox 97.7 F L 94 16 116/77 95 05/20/18 14:07 05/20/18 14:07 05/20/18 14:07 05/20/18 14:07 05/20/18 14:07 Oxygen Delivery Method Room Air Weight: 291 lb 3.69 oz Body Mass Index (BMI) 47.0 Intake and Output for Last 24 Hours 05/18/18 05/19/18 05/20/18 23:59 23:59 23:59 Intake Total 1000 / 1000 2121 Balance 1000 / 1000 2121 Microbiology Past 72 Hours 05/19/18 19:50 Gram Stain - Final Biopsy - Breast Laboratory Tests Past 24 Hrs 05/19/18 05/20/18 05/20/18 19:50 04:20 04:20 WBC 8.3 RBC 3.39 L Hgb 10.1 L Hct 32.2 L MCV 95.0 MCH 29.8 MCHC 31.4 L RDW 16.0 H RDW Differential 53.5 H Plt Count 262 MPV 9.8 ESR 88 H Sodium 141 Potassium 3.6 Chloride 104 Carbon Dioxide 27.0 Anion Gap 10 BUN 6 L Creatinine 0.59 Estim Creat Clear Calc 111.54 Est GFR (MDRD) Af Amer 141 Est GFR (MDRD) Non-Af 116 BUN/Creatinine Ratio 10.2 Glucose 126 H Calcium 8.7 C-React Prot Ext Range 138.00 H Prealbumin 12.6 L S.aureus Protein A PCR NEGATIVE MRSA (PCR) Negative Assessment/Plan All Active Problems (Last Reviewed 11/13/17 @ 09:21 by Tiff Abdi) Acquired absence of right breast and nipple (Acute) Cellulitis of right breast (Acute) Septic shock (Acute) Infected wound (Acute) Open wound of right breast (Acute) 1. Cellulitis of right breast s/p removal of implant with wound vac - wound care consulted for vac management - In discussion with her she would rather not have any further implants attempted at this time - ID consulted for abx management, cefepime and vanc for now 2. 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 Gastric bypass history with nutritional deficiencies - C/w her home supplementation with her iron/vitamin C and B12 - No NSAIDs - c/w calcium and Vit D supplementation 4. Depression/Anxiety/Headaches - Stable at the moment - c/w prozac and wellbutrin - for the headaches can c/w nortriptylin and magnesium DVT: Lovenox Diet: Regular Code: FULL Dispo: Home tomorrow with home health Code Visit Inpatient E&M: [id number] Init Hosp L2
--- NOTE | 2018-05-20 15:14 | CASEMGMT ---
NERY CM Readmission Note. Previous Admission: 05/05-05/07/18 DX: R breast reconstruction, revision reconstructed R breast w/ excision nonhealing ulcer, septic shock, infected wound. DC Disposition: home with IV antibiotics through [facility] and [facility]. Readmission date: 05/19/18 DX: worsening symptoms. Surgery for I/D R Breast abscess. Wound vac to be placed 05/20/18. ID consult. DC PLAN: Pt will continue IV antibiotics through [facility] on discharge and Home Health through [facility]. Will need script for IV antibiotics faxed to [facility] with updated clinicals when ID consult completed. Urbano HUYNH RN ACM
--- NOTE | 2018-05-20 15:31 | PCM.PN.SRG ---
Subjective: Postop #1 Has breast wound pain but feels better than she did preop. VAC applied today. - Physical Exam General: Alert, Oriented x3 HEENT: PERRLA, EOMI Oral: Moist Mucosa Neck: Supple Abdomen: Soft, Non-Distended Skin: Ulcer/ Wound - right breast wound is stable. No bleeding seen. No further evidence of infection. VAC applied today. Neurological: Cranial nerves II-XII grossly intact Psych/Mental Status: Normal Affect, Appropriate Vital Signs Temp Pulse Resp BP Pulse Ox 97.7 F L 94 16 116/77 95 05/20/18 14:07 05/20/18 14:07 05/20/18 14:07 05/20/18 14:07 05/20/18 14:07 Oxygen Delivery Method Room Air Weight: 291 lb 3.69 oz Body Mass Index (BMI) 47.0 Intake and Output for Last 24 Hours 05/18/18 05/19/18 05/20/18 23:59 23:59 23:59 Intake Total 1000 / 1000 2121 Balance 1000 / 1000 2121 Microbiology Past 72 Hours 05/19/18 19:50 Gram Stain - Final Biopsy - Breast Laboratory Tests Past 24 Hrs 05/19/18 05/20/18 05/20/18 19:50 04:20 04:20 WBC 8.3 RBC 3.39 L Hgb 10.1 L Hct 32.2 L MCV 95.0 MCH 29.8 MCHC 31.4 L RDW 16.0 H RDW Differential 53.5 H Plt Count 262 MPV 9.8 ESR 88 H Sodium 141 Potassium 3.6 Chloride 104 Carbon Dioxide 27.0 Anion Gap 10 BUN 6 L Creatinine 0.59 Estim Creat Clear Calc 111.54 Est GFR (MDRD) Af Amer 141 Est GFR (MDRD) Non-Af 116 BUN/Creatinine Ratio 10.2 Glucose 126 H Calcium 8.7 C-React Prot Ext Range 138.00 H Prealbumin 12.6 L S.aureus Protein A PCR NEGATIVE MRSA (PCR) Negative Medical Necessity - Tobacco Use Smoking Status: Former smoker Assessment/Plan All Active Problems (Last Reviewed 11/13/17 @ 09:21 by Tiff Abdi) Acquired absence of right breast and nipple (Acute) Cellulitis of right breast (Acute) Septic shock (Acute) Infected wound (Acute) Open wound of right breast (Acute) Hypothyroid (Acute) 1. Infected right breast implant reconstruction with abscess. 2. History of recurrent infections bilateral breasts. 3. s/p completion mastectomy right breast. 4. Acquired absence right breast. 5. Disproportion reconstructed breasts. 6. Former smoker. 7. MRSA. 8. s/p delayed right breast reconstruction with removal of saline tissue supervisor safety deposit with replacement cohesive gel implant (800 ml) and placement of Alloderm acellular dermal matrix graft inferolateral sling (132 cm2) and revision reconstructed right breast with excision nonhealing ulcer and excess mastectomy skin scar contour deformity. 9. s/p revision right breast reconstruction with incision and drainage and excisional debridement abscess with capsulectomy and removal infected breast implant. VAC applied today. Awaiting approval. Infectious Diseases input appreciated. Continue Vancomycin. Levaquin and Flagyl changed to Cefepime. Operative cultures are pending. Hospitalist Group input appreciated. Already has PICC line. Was getting IV Vancomycin at home before her emergency surgery yesterday. Prealbumin was 12.6. Encourage nutritional supplementation with protein to help with the healing process. After discharge, followup at the Wound Center.
--- NOTE | 2018-05-20 15:43 | PCM.DC ---
You will use the following diet at home:: No restrictions, Other - encourage nutritional supplementation with protein to help the healing process. Discharge Activity: May not drive while taking narcotic pain medications., May Shower - on the days the vac is changed. May shower in (days): 2 - on the days the vac is changed. May resume sexual activity in: No Restrictions Weight Bearing Status: Weight bearing as tolerated Keep extremity elevated above heart level: - - elevate head. Call your doctor if your incision/area has: Continuous Slow Oozing, Sudden Increased Bleeding, Increased Pain/ Swelling, Increased Redness, Foul Smelling Discharge, Swelling at the incision site Call your doctor if you observe: Fever of 101 or Higher, Coldness, Increased Pain, Shortness of breath, Chest pain, Calf discomfort, Uncontrolled pain Suture Line Care: - - changes three times per week at 150 mmHg continuous suction. Change Dressing in (Days):: 2 - vac changes three times per week. Cleanse incision/area with: Soap & Water - masy cleanse the wound with soap and water on the days the vac is changed. Additional Dressing/Incision Instructions:: Home Health to assist with VAC dressing changes three times per week at 150 mmHg continuous suction. Please cleanse the wound with soap and water at the time of the VAC dressing change. Allergies/Adverse Reactions: Allergies codeine Allergy (Verified 05/19/18 13:15) Rash Penicillins Allergy (Verified 05/19/18 13:15) Rash NSAIDS (Non-Steroidal Anti-Inflamma Adverse Reaction (Verified 05/19/18 13:15) Other UNABLE TO TAKE DUE TO WEIGHT LOSS SURGERY Medications to take at Discharge Levothyroxine [Synthroid] 200 mcg PO DAILY 03/19/14 Calcium Carbonate/Vitamin D3 [Calcium 600-Vit D3 400 Caplet] 1 ea PO BID 08/15/15 Cholecalciferol (VIT D3) [Vitamin D3] 2,000 unit PO DAILY 08/15/15 Multivitamins,Ther W-Minerals [Multivitamin With Minerals] 1 tab PO DAILY 08/15/15 Nortriptyline HCl [Pamelor] 50 mg PO QHS 04/03/16 buPROPion XL [Wellbutrin Xl] 450 mg PO DAILY 04/18/17 Iron Polysaccharide Complex [Ferrex 150] 150 mg PO BID 05/01/17 Acetaminophen [Tylenol] 1,000 mg PO Q8H PRN #1 tab 05/06/17 Ascorbic Acid [Vitamin C] 1,000 mg PO BID 12/03/17 Fluoxetine HCl [Prozac] 40 mg PO DAILY 12/03/17 Magnesium 250 mg PO QHS 12/03/17 Docusate Sodium [Colace] 100 mg PO BID #60 cap 12/18/17 proMETHazine tablet [Phenergan tablet] 25 mg PO 4X/DAY PRN PRN #30 tab 12/18/17 Zolpidem Tartrate [Ambien] 10 mg PO QHS 04/07/18 Vancomycin IV 1,750 mg IV Q12H 40 Days #80 vial 05/06/18 DiphenhydrAMINE [Benadryl] 50 mg PO 4X/DAY PRN capsule 05/07/18 HYDROmorphone tablet [Dilaudid] 2 - 4 mg PO 4X/DAY PRN PRN 5 Days #40 tab 05/07/18 Cefepime HCl [Maxipime] 2 gm IV Q8 vial 05/20/18 Diazepam [Valium] 5 mg PO 4X/DAY PRN #30 tab 05/20/18 HYDROmorphone tablet [Dilaudid] 2 - 4 mg PO 4X/DAY PRN PRN 7 Days #60 tab 05/20/18 Heparin Sodium,Porcine/Pf [Heparin 500 Unit/5 ml (100/ml)] 500 unit IV UD PRN syringe 05/20/18 Vancomycin IV 1,750 mg IV Q12H vial 05/20/18 Vancomycin IV Pharmacy to Dose 1 ea IV X1 PRN each 05/20/18 Vancomycin IV 2,000 mg IV Q12H #28 vial 05/21/18 The following prescriptions were given: HYDROmorphone tablet [Dilaudid] 2 - 4 mg PO 4X/DAY PRN PRN 7 Days #60 tab PRN Reason: Severe Pain (6-10) Vancomycin IV 2,000 mg IV Q12H #28 vial Diazepam [Valium] 5 mg PO 4X/DAY PRN #30 tab PRN Reason: spasms Primary Care Physician: Eduardo Peters DO [Primary Care Provider] - Test Results: Test results from this visit will be discussed in further detail at your follow-up appointment, if applicable. Please Follow Up With: Sean Stevenson MD When: 2 weeks at the wound center. call [phone] for appt. Proposed Discharge Date: 05/21/18
[2018-05-20 20:34] VITALS: BP 134/70; PULSE 102; RESP 16; TEMP 36.9; O2SAT 96
[2018-05-20] MEDS: DiphenhydrAMINE 25 MG Capsule 50 MG PO (22:13)
[2018-05-20] MEDS: Magnesium Oxide 400 MG Tablet 200 MG PO (22:14)
[2018-05-20] MEDS: Nortriptyline 25 MG Capsule 50 MG PO (22:15)
[2018-05-20] MEDS: HYDROmorphone 2 MG TABLET PO (22:55)
[2018-05-21 02:30] VITALS: BP 100/66; PULSE 87; RESP 16; TEMP 36.8; O2SAT 95
[2018-05-21] MEDS: HYDROmorphone 2 MG TABLET PO ×3 (05:52→12:12)
[2018-05-21] MEDS: Levothyroxine 100 MCG Tablet 200 MCG PO (05:52)
[2018-05-21 07:52] LABS: Hematocrit 32.1 % (37-47); Hemoglobin 9.9 g/dl (12.0-15.0); Mean Corp Hgb Conc 30.8 g/gl (32-36); Mean Corpuscular Hgb 29.1 pg (27.0-32.0); Mean Corpuscular Volume 94.4 fL (81-99); Mean Platelet Vol. 9.5 fl (6.2-12.0); Platelet Count 288 K/mm3 (150-450); RBC Distribution Width SD 55.1 fl (35.1-43.9); Scan Indicated on CBC? Y/N NO; White Blood Count 6.1 K/mm3 (4.4-11.0)
[2018-05-21 08:13] LABS: Anion Gap 7 (5-15); BUN 8 mg/dL (7-18); Calcium,Total 8.5 mg/dL (8.5-10.1); Chloride 104 mmol/L (98-107); Creatinine, Serum 0.61 mg/dL (0.55-1.02); EST Glomerular Filtration Rate 111 mL/min (>60); Est Glom Filt Rate - Afr Amer 135 mL/min (>60); Estimated Creatinine Clearance 107.88 ml/min; Glucose 98 mg/dL (74-106); Potassium 3.6 mmol/L (3.5-5.1); Sodium Level 140 mmol/L (136-145)
[2018-05-21 08:14] LABS: Vancomycin, Trough Level 9.1 ug/mL (5.0-15.0)
[2018-05-21] MEDS: Multivitamins,Ther W-Minerals Tablet 1 TABLET PO (08:56)
[2018-05-21] MEDS: Docusate Sodium 100 MG Capsule PO (08:57)
[2018-05-21] MEDS: Enoxaparin 40 MG/0.4 ML Syringe SC (08:57)
[2018-05-21] MEDS: Iron Polysaccharide Complex 150 MG CAPSULE PO (08:57)
[2018-05-21] MEDS: Calcium Carb/Vitamin D 1 TABLET Tablet PO (08:57)
[2018-05-21] MEDS: Ascorbic Acid 500 MG Tablet 1000 MG PO (08:58)
[2018-05-21] MEDS: FLUoxetine 20 MG Capsule 40 MG PO (08:58)
[2018-05-21] MEDS: buPROPion (XL) 150 MG TABLET.XL 450 MG PO (08:59)
[2018-05-21 09:08] VITALS: BP 130/85; PULSE 87; RESP 18; TEMP 36.5; O2SAT 94
--- NOTE | 2018-05-21 09:33 | PCM.PN.SRG ---
<Huma Infante E - Last Filed: 05/21/18 10:06> Subjective: Postop #2 She is feeling much better today compared to yesterday. Pain well controlled. Wound VAC in place. Objective: Patient examined at bedside. She is in no acute distress. - Physical Exam General: Alert, Oriented x3, Cooperative HEENT: PERRLA, EOMI Oral: Moist Mucosa Neck: Supple Abdomen: Soft, Non Tender Skin: Ulcer/ Wound - VAC in place. Surrounding tissue intact, not errythematous. Neurological: Cranial nerves II-XII grossly intact Psych/Mental Status: Normal Affect, Appropriate Vital Signs Temp Pulse Resp BP Pulse Ox 97.7 F L 87 18 130/85 H 94 05/21/18 09:08 05/21/18 09:08 05/21/18 09:08 05/21/18 09:08 05/21/18 09:08 Oxygen Delivery Method Room Air Weight: 291 lb 3.69 oz Body Mass Index (BMI) 47.0 Intake and Output for Last 24 Hours 05/19/18 05/20/18 05/21/18 23:59 23:59 23:59 Intake Total 1000 / 1000 3055 / 3055 1287 / 1287 Balance 1000 / 1000 3055 / 3055 1287 / 1287 Microbiology Past 72 Hours 05/19/18 19:50 Gram Stain - Final Biopsy - Breast Laboratory Tests Past 24 Hrs 05/21/18 05/21/18 05/21/18 07:40 07:40 07:40 WBC 6.1 RBC 3.40 L Hgb 9.9 L Hct 32.1 L MCV 94.4 MCH 29.1 MCHC 30.8 L RDW 16.0 H RDW Differential 55.1 H Plt Count 288 MPV 9.5 Sodium 140 Potassium 3.6 Chloride 104 Carbon Dioxide 29.0 Anion Gap 7 BUN 8 Creatinine 0.61 Estim Creat Clear Calc 107.88 Est GFR (MDRD) Af Amer 135 Est GFR (MDRD) Non-Af 111 BUN/Creatinine Ratio 13.0 Glucose 98 Calcium 8.5 Vancomycin Trough 9.1 Medical Necessity - Tobacco Use Smoking Status: Former smoker Assessment/Plan All Active Problems (Last Reviewed 11/13/17 @ 09:21 by Tiff Abdi) Breast implant status (Acute) Infection of breast implant (Acute) Acquired absence of right breast and nipple (Acute) Cellulitis of right breast (Acute) Septic shock (Acute) Infected wound (Acute) Open wound of right breast (Acute) 1. Infected right breast implant reconstruction with abscess. 2. History of recurrent infections bilateral breasts. 3. s/p completion mastectomy right breast. 4. Disproportion reconstructed breasts. 6. Former smoker. 7. History of MRSA. 8. s/p delayed right breast reconstruction with removal of saline tissue flight engineer helicopter with replacement cohesive gel implant (800 ml) and placement of Alloderm acellular dermal matrix graft inferolateral sling (132 cm2) and revision reconstructed right breast with excision nonhealing ulcer and excess mastectomy skin scar contour deformity. 9. s/p revision right breast reconstruction with incision and drainage and excisional debridement abscess with capsulectomy and removal infected breast implant. VAC applied yesterday. Tolerating VAC well. Infectious Disease consulted. Continues to be on Vancomycin and Cefepime. Operative cultures pending. Hospitalist Group consulted. Has PICC line in place due to receiving IV Vancomycin at home before her emergency surgery. Encourage nutritional supplementation with protein to help with the healing process. After discharge, follow up at the Wound Center. Discussed plan of care with Dr. Stevenson. <Sean Stevenson - Last Filed: 06/03/18 13:02> - Physical Exam Vital Signs Temp Pulse Resp BP Pulse Ox 98.5 F 98 18 115/76 97 05/21/18 15:33 05/21/18 15:33 05/21/18 15:33 05/21/18 15:33 05/21/18 15:33 Oxygen Delivery Method Room Air Weight: 291 lb 3.69 oz Body Mass Index (BMI) 47.0 Microbiology Past 72 Hours 05/19/18 19:50 Gram Stain - Final Biopsy - Breast Wound Culture - Preliminary Gram negative igor. Assessment/Plan Agree with above. She will be sent home on Vancomycin and Cefepime. When the cultures are available, antibiotic modification may be necessary. Wrote scripts for Dilaudid for pain (60 tabs) and for Valium for spasm (30 tabs). Followup at Wound Center in a couple of weeks.
--- NOTE | 2018-05-21 10:15 | NURSING ---
Patient c/o of some pulling at the superior edge of the wound. added another piece of black foam to the wound to prevent the superior edge from pulling down over the foam. Good seal noted at 150mmHg low continuous suction. pt tolerated well. home VAC approved and set up in the room. pt can be switched over to the home VAC once the discharge orders are written. pt denies further needs at this time.
--- NOTE | 2018-05-21 10:34 | PCM.RX.CS ---
Consult Pharmacy has been consulted to manage selected antiobiotic: Vancomycin Type of Consult: Follow-up Suspected Infection: Skin/Soft tissue Prior Doses of Antibiotics Received/Current Regimen: VANCOMYCIN 1750MG IV Q12HRS: 05/20 @2023, 05/21 @851 Labs: Sodium 140 mmol/L (136-145) 05/21/18 07:40 Potassium 3.6 mmol/L (3.5-5.1) 05/21/18 07:40 Chloride 104 mmol/L (98-107) 05/21/18 07:40 Carbon Dioxide 29.0 mmol/L (21.0-32.0) 05/21/18 07:40 Anion Gap 7 (5-15) 05/21/18 07:40 BUN 8 mg/dL (7-18) 05/21/18 07:40 Creatinine 0.61 mg/dL (0.55-1.02) 05/21/18 07:40 Est GFR (MDRD) Af Amer 135 mL/min (>60) 05/21/18 07:40 Est GFR (MDRD) Non-Af 111 mL/min (>60) 05/21/18 07:40 BUN/Creatinine Ratio 13.0 RATIO (10-20) 05/21/18 07:40 Glucose 98 mg/dL (74-106) 05/21/18 07:40 Vancomycin Trough 9.1 ug/mL (5.0-15.0) 05/21/18 07:40 Microbiology: Microbiology 05/19/18 19:50 Biopsy - Breast Gram Stain - Final 05/19/18 19:50 Biopsy - Breast Wound Culture - Preliminary Gram negative igor Weight used for dosin kg Estimated Creatinine Clearance: 107ML/MIN Goal Trough: 15-20 mcg/mL Pharmacy Plan for Drug Dosing: The patient had a trough drawn which resulted in a value of 9.1 (drawn 11hrs from last administered dose). Will plan on increasing the patient's vancomycin dose since her trough goal is 15-20. Will recheck a trough prior to the 4th dose of new regimen. PLAN/RECOMMENDATIONS 1. Start vancomycin 2000mg IV Q12hrs 05/21/18 @2000 2. Vancomycin trough 05/23/18 @0730 3. Pharmacy Service will continue to monitor and adjust dosing as required.
--- NOTE | 2018-05-21 10:50 | PCM.PN.ID ---
Subjective: Feeling better, no fever, no n/v/d. - Physical Exam General: Alert, Cooperative, No apparent distress Lungs: Clear to auscultation, Normal air movement Cardiovascular: Regular rate, Regular Rhythm Abdomen: Soft, Non Tender, Non-Distended Skin: No rashes, Ulcer/ Wound - wound vac over R chest Vital Signs Temp Pulse Resp BP Pulse Ox 97.7 F L 87 18 130/85 H 94 05/21/18 09:08 05/21/18 09:08 05/21/18 09:08 05/21/18 09:08 05/21/18 09:08 Oxygen Delivery Method Room Air Weight: 132.1 kg Body Mass Index (BMI) 47.0 Intake and Output for Last 24 Hours 05/19/18 05/20/18 05/21/18 23:59 23:59 23:59 Intake Total 1000 / 1000 3055 / 3055 1287 / 1287 Balance 1000 / 1000 3055 / 3055 1287 / 1287 Microbiology Past 72 Hours 05/19/18 19:50 Gram Stain - Final Biopsy - Breast Wound Culture - Preliminary Gram negative igor Laboratory Tests Past 24 Hrs 05/19/18 05/21/18 05/21/18 19:50 07:40 07:40 WBC 6.1 RBC 3.40 L Hgb 9.9 L Hct 32.1 L MCV 94.4 MCH 29.1 MCHC 30.8 L RDW 16.0 H RDW Differential 55.1 H Plt Count 288 MPV 9.5 Sodium Potassium Chloride Carbon Dioxide Anion Gap BUN Creatinine Estim Creat Clear Calc Est GFR (MDRD) Af Amer Est GFR (MDRD) Non-Af BUN/Creatinine Ratio Glucose Calcium Vancomycin Trough 9.1 S.aureus Protein A PCR NEGATIVE MRSA (PCR) Negative 05/21/18 07:40 WBC RBC Hgb Hct MCV MCH MCHC RDW RDW Differential Plt Count MPV Sodium 140 Potassium 3.6 Chloride 104 Carbon Dioxide 29.0 Anion Gap 7 BUN 8 Creatinine 0.61 Estim Creat Clear Calc 107.88 Est GFR (MDRD) Af Amer 135 Est GFR (MDRD) Non-Af 111 BUN/Creatinine Ratio 13.0 Glucose 98 Calcium 8.5 Vancomycin Trough S.aureus Protein A PCR MRSA (PCR) Medical Necessity - Tobacco Use Smoking Status: Former smoker Route of nutrition/ use of supplements: [] Nutritional Intake: [] IV Site: [] Lopez Catheter: [] - Assessment/Plan Antibiotics: [] Assessment/Plan: [] R breast infection s/p implant placement 05/05/18 with prior h/o MRSA - now s/p removal of implant and debridement with wound vac placement 05/19/[address] Stevenson. Had been on levaquin for a few days prior to surgery. Reports rash with PCN about 15-20 years ago. Thinks she may have done ok with augmentin in the past. Will continue vanc and cefepime while cxs pending. MRSA pcr was neg. Surg cx now showing GNR. Ok for d/c home on vanc/cefepime and can adjust as more cx data comes back. Plan on at least 2 week course. Will follow, d/w upper caser. Rx written for home cefepime.
--- NOTE | 2018-05-21 12:41 | PCM.PN.HOSP ---
Subjective: Doing well, seen while walking in the halls. Minimal pain, and wound is with a wound vac and she is not having any difficulty with it at the moment Objective: General: Alert, Oriented x3, Cooperative, No apparent distress HEENT: Atraumatic, EOMI, Normocephalic Oral: Moist Mucosa Neck: Supple, No JVD Lungs: Clear to auscultation, Normal air movement, No rhonchi, No wheeze, No rales Cardiovascular: Regular rate, Regular Rhythm, Normal S1, Normal S2, No murmurs Abdomen: Soft, Non Tender, Non-Distended, No Hepato-splenomegaly Extremities: No edema Skin: - - Right breast wound with wound vac in place Neurological: Motor Exam 5/5 strength throughout, Sensory exam intact to light touch and pain Psych/Mental Status: Normal Affect, Appropriate Vitals/I&O's: Vital Signs Temp Pulse Resp BP Pulse Ox 97.7 F L 87 18 130/85 H 94 05/21/18 09:08 05/21/18 09:08 05/21/18 09:08 05/21/18 09:08 05/21/18 09:08 Oxygen Delivery Method Room Air Weight: 291 lb 3.69 oz Body Mass Index (BMI) 47.0 Intake and Output for Last 24 Hours 05/19/18 05/20/18 05/21/18 23:59 23:59 23:59 Intake Total 1000 / 1000 3055 / 3055 2993 / 2993 Balance 1000 / 1000 3055 / 3055 2993 / 2993 Microbiology Past 72 Hours 05/19/18 19:50 Biopsy - Breast Gram Stain - Final 05/19/18 19:50 Biopsy - Breast Wound Culture - Preliminary Gram negative igor Laboratory Results 05/19/18 19:50: S.aureus Protein A PCR NEGATIVE, MRSA (PCR) Negative 05/21/18 07:40: Vancomycin Trough 9.1 05/21/18 07:40: WBC 6.1, RBC 3.40 L, Hgb 9.9 L, Hct 32.1 L, MCV 94.4, MCH 29.1, MCHC 30.8 L, RDW 16.0 H, RDW Differential 55.1 H, Plt Count 288, MPV 9.5 05/21/18 07:40: Sodium 140, Potassium 3.6, Chloride 104, Carbon Dioxide 29.0, Anion Gap 7, BUN 8, Creatinine 0.61, Estim Creat Clear Calc 107.88, Est GFR (MDRD) Af Amer 135, Est GFR (MDRD) Non-Af 111, BUN/Creatinine Ratio 13.0, Glucose 98, Calcium 8.5 Current Medications Acetaminophen (Tylenol) 1,000 mg PO Q8H PRN PRN Reason: PAIN Ascorbic Acid (Vitamin C) 1,000 mg PO BID [facility] Last Admin: 05/21/18 08:58 Dose: 1,000 mg Bupropion HCl (Wellbutrin Xl) 450 mg PO DAILY [facility] Last Admin: 05/21/18 08:59 Dose: 450 mg Calcium/Vitamin D (Os-Alfredo 500mg + D) 1 tablet PO BID [facility] Last Admin: 05/21/18 08:57 Dose: 1 tablet Cholecalciferol (Vitamin D) 2,000 unit PO DAILY [facility] Last Admin: 05/21/18 08:58 Dose: 2,000 unit Diazepam (Valium) 5 mg PO 4X/DAY PRN PRN Reason: spasms Last Admin: 05/20/18 22:56 Dose: 5 mg Diphenhydramine HCl (Benadryl) 50 mg PO 4X/DAY PRN PRN PRN Reason: ICHING Last Admin: 05/20/18 22:13 Dose: 50 mg Docusate Sodium (Colace) 100 mg PO BID [facility] Last Admin: 05/21/18 08:57 Dose: 100 mg Enoxaparin Sodium (Lovenox) 40 mg SC DAILY [facility] Last Admin: 05/21/18 08:57 Dose: 40 mg Fluoxetine HCl (Prozac) 40 mg PO DAILY [facility] Last Admin: 05/21/18 08:58 Dose: 40 mg Heparin Sodium (Beef Lung) (Heparin 500 Unit/5 Ml (100/Ml)) 500 unit IV UD PRN PRN Reason: HEPARIN FLUSH Hydromorphone HCl (Dilaudid Inj) 1 mg IV Q3H PRN PRN PRN Reason: SEVERE PAIN (6-10/10) Last Admin: 05/20/18 20:24 Dose: 1 mg Hydromorphone HCl (Dilaudid Tablet) 2 - 4 mg PO Q3H PRN PRN PRN Reason: SEVERE PAIN (6-10/10) Last Admin: 05/21/18 12:12 Dose: 4 mg Lactated Ringer's () 1,000 mls @ 60 mls/hr IV .[id number] [facility] Last Admin: 05/20/18 14:13 Dose: 60 mls/hr Vancomycin IV Pharmacy to Dose (1 ea/ Sodium Chloride) 500 mls @ 250 mls/hr IV X1 PRN; Protocol PRN Reason: Rx to Dose Cefepime HCl 2 gm/ Sodium (Chloride) 100 mls @ 200 mls/hr IV Q8 [facility] Last Admin: 05/21/18 05:52 Dose: 200 mls/hr Vancomycin HCl 2,000 mg/ (Sodium Chloride) 540 mls @ 250 mls/hr IV Q12H [facility] Levothyroxine Sodium (Synthroid) 200 mcg PO DAILY@0600 [facility] Last Admin: 05/21/18 05:52 Dose: 200 mcg Magnesium Oxide (Mag-Ox 400) 200 mg PO QHS [facility] Last Admin: 05/20/18 22:14 Dose: 200 mg Multivitamins/Minerals (Multivitamin With Minerals) [facility] Last Admin: 05/21/18 08:56 Dose: 1 tablet Nortriptyline HCl (Pamelor) 50 mg PO QHS [facility] Last Admin: 05/20/18 22:15 Dose: 50 mg Nutritional Formula (Butch - Banner Flavor) [facility] Last Admin: 05/21/18 08:56 Dose: 1 packet Ondansetron HCl (Zofran) 4 mg IV Q6H PRN PRN PRN Reason: NAUSEA Polysaccharide Iron Complex (Ferrex 150) 150 mg PO BID [facility] Last Admin: 05/21/18 08:57 Dose: 150 mg Promethazine HCl (Phenergan Tablet) 25 mg PO 4X/DAY PRN PRN PRN Reason: NAUSEA/VOMITING Last Admin: 05/19/18 22:57 Dose: 25 mg Sodium Chloride () 5 - 30 ml IV UD PRN PRN Reason: SALINE FLUSH Sodium Chloride () 10 - 20 ml IV UD PRN PRN Reason: PICC FLUSH Zolpidem Tartrate (Ambien (Generic)) 5 mg PO QHS PRN PRN Reason: INSOMNIA Medical Necessity - Tobacco Use Smoking Status: Former smoker Assessment/Plan All Active Problems (Last Reviewed 11/13/17 @ 09:21 by Tiff Abdi) Acquired absence of right breast and nipple (Acute) Cellulitis of right breast (Acute) Septic shock (Acute) Infected wound (Acute) Open wound of right breast (Acute) 1. Cellulitis of right breast s/p removal of implant with wound vac - wound care consulted for vac management - In discussion with her she would rather not have any further implants attempted at this time - ID consulted for abx management, cefepime and vanc for now - OK to DC with vanc/cefepime, sensitivities will be followed as an outpatient - approximate duration of 2 weeks per ID 2. 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 Gastric bypass history with nutritional deficiencies - C/w her home supplementation with her iron/vitamin C and B12 - No NSAIDs - c/w calcium and Vit D supplementation 4. Depression/Anxiety/Headaches - Stable at the moment - c/w prozac and wellbutrin - for the headaches can c/w nortriptylin and magnesium DVT: Lovenox Diet: Regular Code: FULL Dispo: Home tomorrow with home health Code Visit Inpatient E&M: 94727 Subs Hosp L2
--- NOTE | 2018-05-21 13:07 | CASEMGMT ---
Addendum entered by Maureen Denney 05/21/18 13:25: Labs, Vanco Trough, and H/P also faxed to [facility]. Original Note: NERY MEEKS NOTE: Pt states wishes to resume [facility] services w/[facility]. New Scripts received from Dr Quiroz for IV Cefepime and IV Vanco. Scripts faxed to [facility] and to [facility]. Financials received from [facility] stating atb's will be covered @ 100%/pt will have $0 co-pay. Pt made aware. Ronna also aware pt has a wound vac and will need nursing home for Wound vac care in addition to IV Atb's. [place] information faxed to [facility]. JIMENEZ Friend, @ [facility] made aware pt discharging today and states they are able to resume [facility] services for pt w/resumption of care being today 05/21/18. [facility] and [facility] both made aware that pt will receive 1400 dose Cefepime @ [facility] prior to d/c and next dose of Cefepime will be due @ 2200 and that the next dose of Vanco is due @ 1999. [facility] report they are able to deliver IV Atb's to pt @ 2000. Pt made aware of all of the above. Pt also made aware that the Vanco doses she has currently @ her home is not the correct dose, as her Vanco dose is now 2 GM, and that she should not use what she currently has @ home. Pt voiced understanding. Pt voices no other questions/concerns at this time. CM to follow for any discharge planning needs that may arise. NERY Quintana, made aware pt is to receive her 1400 dose of Cefepime today prior to discharge. Juliet WILEYN NERY MEEKS
[2018-05-21] MEDS: 0.9% NaCl Peripheral Flush Adult/Peds IV (15:15)
[2018-05-21 15:33] VITALS: BP 115/76; PULSE 98; RESP 18; TEMP 36.9; O2SAT 97
--- NOTE | 2018-05-21 17:35 | PCM.DC.SUM ---
Discharge Date and Diagnosis Date of Admission: 05/19/18 Date of Discharge: 05/21/18 - Primary Discharge Diagnosis Infected right breast implant reconstruction with abscess. - Secondary Discharge Diagnosis History of recurrent infections bilateral breasts. Acquired absence right breast. MRSA. Breast removal, prophylactic excess mastectomy skin scar contour deformity reconstructed right breast nonhealing ulcer right breast reconstruction History of MRSA infection History of Graves' disease treated with radiation ablation HTN (hypertension) Anemia Personal hx of gastric bypass Morbid obesity Depression disproportion reconstructed breasts Abscess of right breast Abscess of left breast bilateral macromastia Neck pain Back pain, thoracic inframammary intertrigo bilateral shoulder pain from the weight of her breasts on her bra straps Former smoker Anxiety Hospital Course and Treatment Imaging Results: None. Consultations 05/20/18 06:46 Consult: Onc/Wound/cable engineer outside plant Routine Comment: Reason for Consult:: wound vac placement Dr. Ivan from [facility]. Dr. Quiroz from Infectious Diseases. Operations: - - 05/19/18 - Revision right breast reconstruction with incision and drainage and excisional debridement abscess with capsulectomy and removal infected breast implant. Procedures: Wound vac placement Summary of Care Provided: Patient had surgery on 05/05/18 where she underwent delayed right breast reconstruction with removal of saline tissue supervisor steno pool with replacement cohesive gel implant (800 ml) and placement of Alloderm acellular dermal matrix graft inferolateral sling (132 cm2) and revision reconstructed right breast with excision nonhealing ulcer and excess mastectomy skin scar contour deformity. She has a history of MRSA and was placed on Vancomycin for home. She did well postop until a couple of days ago when she felt weak and nauseated. She felt febrile. Her right breast was warm with some redness. There was all of a sudden an increase in drainage with some milky looking fluid. I talked to her last night and since she was seeing me in the office today, she didn't want to go to the ED last night. So I added Levaquin antibiotics to the Vancomycin she was already on. I saw her in the office early this afternoon. Her right breast was warm and swollen and red. Some tenderness to palpation. The fluid in the drain appeared milky and yellow. She stated she felt lousy and weak and nauseated. Her temp in the office was 99.5. She has labs drawn weekly because of the Vancomycin and had them done yesterday. Her WBC was 16.6. She has a history of recurrent breast infections which ultimately led to a right breast mastectomy last March. In that early postop period, she became septic with blood pressure in the 60-70s. This required an urgent I&D with packing of the wound until healed. Culture at that time showed MRSA. Her symptomatology has worsened in the last 24 hours. I am concerned that she will have another septic episode similar to last year. So it was recommended to the patient to emergently go to surgery today for I&D of the right breast reconstruction abscess with removal of the cohesive gel implant. The breast wound may be left open and packed. If so, a VAC will be placed tomorrow. Discussed with the patient, that we will need to wait at least 6 months before considering additional breast reconstruction. Since she is already on Vancomycin, and Levaquin was started last night, will add Flagyl for the surgery. Patient was informed of the risks and complications of the procedure including alternatives to surgery. These were discussed with the patient personally. Patient voices understanding and wishes to proceed. She understands the wound may be left open and packed. Will have Hospitalists involved for medical management. Will consult ID for antibiotic assistance. If the wound is left open, she will followup at the Wound Center. Later that evening on 05/19/18, the patient went for emergency surgery and underwent revision right breast reconstruction with incision and drainage and excisional debridement abscess with capsulectomy and removal infected breast implant. Due to the severity of the infection, the wound was left open and packed with Betadine gauze. She tolerated the procedure well. The VAC was placed the next day. Infectious Diseases was consulted. They changed the antibiotics to Vancomycin and Cefepime and stopped the Levaquin and Flagyl. The operative culture showed Gram negative igor. When it become identified, antibiotic modification may be necessary. The [facility] was consulted for medical management. Her WBC normalized after the surgery from 16.6 down to 6.1 at discharge. Her Prealbumin was 12.6. Encouraged nutritional supplementation with protein to help the healing process. On the second postop day, the VAC was approved and she was discharged home in satisfactory condition. She was already getting Vancomycin at home and Cefepime was added. Wrote scripts for Dilaudid for pain (60 tabs) and for Valium for spasm (30 tabs). The VAC will be changed three times per week at 150 mmHg continuous suction. Will reassess in a couple of weeks to determine if additional antibiotics are needed. Followup at Wound Center in a couple of weeks. Discharge Diet: No Restrictions, - - encourage nutritional supplementation with protein to help the healing process. Discharge Activity: May not drive while taking narcotic pain medications., May Shower - on the days the vac is changed. May shower in (days): 2 - on the days the vac is changed. May resume sexual activity in: No Restrictions Weight Bearing Status: Weight bearing as tolerated Keep extremity elevated above heart level: - - elevate head. Call your doctor if your incision/area has: Continuous Slow Oozing, Sudden Increased Bleeding, Increased Pain/ Swelling, Increased Redness, Foul Smelling Discharge, Swelling at the incision site Call your doctor if you observe: Fever of 101 or Higher, Coldness, Increased Pain, Shortness of breath, Chest pain, Calf discomfort, Uncontrolled pain Suture Line Care: - - changes three times per week at 150 mmHg continuous suction. Change Dressing in (Days):: 2 - vac changes three times per week. Cleanse incision/area with: Soap & Water - masy cleanse the wound with soap and water on the days the vac is changed. Additional Dressing/Incision Instructions:: Home Health to assist with VAC dressing changes three times per week at 150 mmHg continuous suction. Please cleanse the wound with soap and water at the time of the VAC dressing change. Home Medications: Medications to take at Discharge Levothyroxine [Synthroid] 200 mcg PO DAILY 03/19/14 Calcium Carbonate/Vitamin D3 [Calcium 600-Vit D3 400 Caplet] 1 ea PO BID 08/15/15 Cholecalciferol (VIT D3) [Vitamin D3] 2,000 unit PO DAILY 08/15/15 Multivitamins,Ther W-Minerals [Multivitamin With Minerals] 1 tab PO DAILY 08/15/15 Nortriptyline HCl [Pamelor] 50 mg PO QHS 04/03/16 buPROPion XL [Wellbutrin Xl] 450 mg PO DAILY 04/18/17 Iron Polysaccharide Complex [Ferrex 150] 150 mg PO BID 05/01/17 Acetaminophen [Tylenol] 1,000 mg PO Q8H PRN #1 tab 05/06/17 Ascorbic Acid [Vitamin C] 1,000 mg PO BID 12/03/17 Fluoxetine HCl [Prozac] 40 mg PO DAILY 12/03/17 Magnesium 250 mg PO QHS 12/03/17 Docusate Sodium [Colace] 100 mg PO BID #60 cap 12/18/17 proMETHazine tablet [Phenergan tablet] 25 mg PO 4X/DAY PRN PRN #30 tab 12/18/17 Zolpidem Tartrate [Ambien] 10 mg PO QHS 04/07/18 Vancomycin IV 1,750 mg IV Q12H 40 Days #80 vial 05/06/18 DiphenhydrAMINE [Benadryl] 50 mg PO 4X/DAY PRN capsule 05/07/18 HYDROmorphone tablet [Dilaudid] 2 - 4 mg PO 4X/DAY PRN PRN 5 Days #40 tab 05/07/18 Cefepime HCl [Maxipime] 2 gm IV Q8 vial 05/20/18 Diazepam [Valium] 5 mg PO 4X/DAY PRN #30 tab 05/20/18 HYDROmorphone tablet [Dilaudid] 2 - 4 mg PO 4X/DAY PRN PRN 7 Days #60 tab 05/20/18 Heparin Sodium,Porcine/Pf [Heparin 500 Unit/5 ml (100/ml)] 500 unit IV UD PRN syringe 05/20/18 Vancomycin IV 1,750 mg IV Q12H vial 05/20/18 Vancomycin IV Pharmacy to Dose 1 ea IV X1 PRN each 05/20/18 Vancomycin IV 2,000 mg IV Q12H #28 vial 05/21/18 Following Prescrptions Were Given to Patient: HYDROmorphone tablet [Dilaudid] 2 - 4 mg PO 4X/DAY PRN PRN 7 Days #60 tab PRN Reason: Severe Pain (6-10/10) Vancomycin IV 2,000 mg IV Q12H #28 vial Diazepam [Valium] 5 mg PO 4X/DAY PRN #30 tab PRN Reason: spasms Primary Care Physician: Eduardo Peters DO [Primary Care Provider] - Please Follow Up With: Sean Stevenson MD When: 2 weeks at the wound center. call [phone] for appt. Disposition: Home with Home Health Minutes spent on discharge:: 35 Patient Condition:: Stable Medical Necessity - Tobacco Use Smoking Status: Former smoker Meaningful Use Info Meaningful Use Diagnoses (Choose all that apply): None applicable
== END 2018-05-21 15:43 | disposition home health service (06) | DRG 443 ==
LOC: MS2 05-20 05:25 → SDC 05-20 08:58
PROVIDERS: Admitting Provider Surgery; Family Provider Student in an Organized Health Care Education/Training Program; PCP Student in an Organized Health Care Education/Training Program; Visit Provider Surgery
PROC: 0HPT0JZ Removal of Synthetic Substitute from Right Breast, Open Approach (ICD-10-PCS; CPT 19371; principal; 2018-05-19 14:30)
DX: T85.79XA Infection and inflammatory reaction due to other internal prosthetic devices, implants and grafts, initial encounter (principal); Z68.42 Body mass index [BMI] 45.0-49.9, adult; N61.1 Abscess of the breast and nipple; E66.01 Morbid (severe) obesity due to excess calories; Z98.84 Bariatric surgery status; Z87.891 Personal history of nicotine dependence; I10 Essential (primary) hypertension; F32.9 Major depressive disorder, single episode, unspecified; D64.9 Anemia, unspecified; E89.0 Postprocedural hypothyroidism
CPT/HCPCS: 36415; 80048; 80202; 84134; 85027; 85652; 86140; 87070; 87075; 87077; 87186; 87205; 87640; 88300; 88304; J7040; J7120; A4216; J2405

== ENCOUNTER 2018-05-27 12:40 | Outpatient (RCR) | payer MEDICAID, SELFPAY ==
[2018-05-11 09:30] LABS: Erythrocyte Sedimentation Rate 66 mm/hr (0-20)
[2018-05-11 09:36] LABS: Hematocrit 38.7 % (37-47); Hemoglobin 12.2 g/dl (12.0-15.0); Mean Corp Hgb Conc 31.5 g/gl (32-36); Mean Corpuscular Volume 95.1 fL (81-99); Mean Platelet Vol. 10.3 fl (6.2-12.0); Platelet Count 288 K/mm3 (150-450); RBC Distribution Width CV 15.6 % (11.6-14.6); RBC Distribution Width SD 52.4 fl (35.1-43.9); Red Blood Count 4.07 M/mm3 (4.2-5.4); White Blood Count 6.4 K/mm3 (4.4-11.0)
[2018-05-11 09:38] LABS: Scan Indicated on CBC? Y/N NO
[2018-05-11 09:39] LABS: ALB/GLOB Ratio 0.8 RATIO (0.9-2.4); AST(SGOT) 19 U/L (15-37); Alanine Aminotransfer ALT/SGPT 28 U/L (13-56); Albumin, Serum 3.2 g/dL (3.2-5.0); Alkaline Phosphatase 75 U/L (45-117); Anion Gap 11 (5-15); BUN 10 mg/dL (7-18); BUN/Creat Ratio 16.4 RATIO (10-20); Calcium,Total 8.9 mg/dL (8.5-10.1); Chloride 103 mmol/L (98-107); Creatinine, Serum 0.61 mg/dL (0.55-1.02); EST Glomerular Filtration Rate 112 mL/min (>60); Est Glom Filt Rate - Afr Amer 135 mL/min (>60); Globulin 3.8 g/dL (2.2-4.2); Glucose 94 mg/dL (74-106); Potassium 4.3 mmol/L (3.5-5.1); Sodium Level 142 mmol/L (136-145); Vancomycin, Trough Level 10.2 ug/mL (5.0-15.0)
[2018-05-18 13:21] LABS: Hemoglobin 11.8 g/dl (12.0-15.0); Mean Corp Hgb Conc 31.1 g/gl (32-36); Mean Corpuscular Volume 93.4 fL (81-99); Mean Platelet Vol. 10.3 fl (6.2-12.0); Platelet Count 275 K/mm3 (150-450); RBC Distribution Width CV 16.2 % (11.6-14.6); RBC Distribution Width SD 55.3 fl (35.1-43.9); Red Blood Count 4.07 M/mm3 (4.2-5.4); White Blood Count 16.6 K/mm3 (4.4-11.0)
[2018-05-18 13:25] LABS: ALB/GLOB Ratio 0.8 RATIO (0.9-2.4); AST(SGOT) 21 U/L (15-37); Alanine Aminotransfer ALT/SGPT 30 U/L (13-56); Albumin, Serum 3.2 g/dL (3.2-5.0); Alkaline Phosphatase 84 U/L (45-117); Anion Gap 12 (5-15); BUN 8 mg/dL (7-18); Calcium,Total 8.9 mg/dL (8.5-10.1); Chloride 101 mmol/L (98-107); Creatinine, Serum 0.67 mg/dL (0.55-1.02); EST Glomerular Filtration Rate 101 mL/min (>60); Est Glom Filt Rate - Afr Amer 122 mL/min (>60); Globulin 3.9 g/dL (2.2-4.2); Glucose 114 mg/dL (74-106); Protein, Total 7.1 g/dL (6.4-8.2); Sodium Level 139 mmol/L (136-145)
[2018-05-18 13:30] LABS: Erythrocyte Sedimentation Rate 77 mm/hr (0-20); Scan Indicated on CBC? Y/N NO
[2018-05-18 13:31] LABS: Vancomycin, Trough Level 8.5 ug/mL (5.0-15.0)
[2018-05-25 10:40] LABS: Erythrocyte Sedimentation Rate 67 mm/hr (0-20)
[2018-05-25 10:42] LABS: Hematocrit 32.2 % (37-47); Mean Corp Hgb Conc 31.1 g/gl (32-36); Mean Corpuscular Hgb 29.9 pg (27.0-32.0); Mean Corpuscular Volume 96.1 fL (81-99); Mean Platelet Vol. 9.7 fl (6.2-12.0); Platelet Count 389 K/mm3 (150-450); RBC Distribution Width CV 15.7 % (11.6-14.6); Red Blood Count 3.35 M/mm3 (4.2-5.4)
[2018-05-25 10:43] LABS: Scan Indicated on CBC? Y/N NO
[2018-05-25 10:45] LABS: Anion Gap 9 (5-15); BUN 7 mg/dL (7-18); BUN/Creat Ratio 11.9 RATIO (10-20); Calcium,Total 8.5 mg/dL (8.5-10.1); Chloride 102 mmol/L (98-107); Creatinine, Serum 0.59 mg/dL (0.55-1.02); EST Glomerular Filtration Rate 116 mL/min (>60); Est Glom Filt Rate - Afr Amer 141 mL/min (>60); Glucose 93 mg/dL (74-106); Potassium 4.3 mmol/L (3.5-5.1); Sodium Level 142 mmol/L (136-145)
[2018-05-25 10:47] LABS: Vancomycin, Trough Level 9.2 ug/mL (5.0-15.0)
== END 2018-05-29 23:59 ==
LOC: HHLAB 12:40
PROVIDERS: Surgery; Family Provider Student in an Organized Health Care Education/Training Program; PCP Student in an Organized Health Care Education/Training Program; Visit Provider Internal Medicine Infectious Disease
DX: N61.1 Abscess of the breast and nipple (principal); Z90.11 Acquired absence of right breast and nipple; N65.1 Disproportion of reconstructed breast; Z86.14 Personal history of Methicillin resistant Staphylococcus aureus infection; T81.4XXA Infection following a procedure, initial encounter; E03.9 Hypothyroidism, unspecified; Z45.2 Encounter for adjustment and management of vascular access device; Z51.81 Encounter for therapeutic drug level monitoring
CPT/HCPCS: 80048; 80053; 80202; 84443; 85027; 85652; 86140

== ENCOUNTER 2018-06-15 09:18 | Outpatient (RCR) | payer MEDICAID, SELFPAY ==
[2018-06-15 09:34] VITALS: BP 153/91; PULSE 100; RESP 18; TEMP 37.4; BMI 44.5
--- NOTE | 2018-06-15 23:05 | PN.PCM_ITS ---
Type of Wound Date of Service: 06/15/18 Chief Complaint: Nonhealing MRSA ulcer right breast s/p removal of infected implant. History of Wound: Surgery 05/19/18 - Revision right breast reconstruction with incision and drainage and excisional debridement abscess with capsulectomy and removal infected breast implant. Surgery 05/05/18 - 1. Delayed right breast reconstruction with removal of saline tissue assistant quality manager with replacement cohesive gel implant (800 ml) and placement of Alloderm acellular dermal matrix graft inferolateral sling (132 cm2). 2. Revision reconstructed right breast with excision nonhealing ulcer and excess mastectomy skin scar contour deformity. Wound care - VAC. Operative culture - Citrobacter koseri. She was treated with Vancomycin perioperatively because of her history of MRSA. She was placed on Cefepime initially and then was changed to Ceftriaxone. Prealbumin from 05/20/18 was 12.6. She takes nutritional supplementation with protein to help the healing process. Today she denies any fever. Her appetite is good. Progress of Wound: Improved. - Physical Exam Vital Signs Temp Pulse Resp BP 99.3 F H 100 18 153/91 H 06/15/18 09:34 06/15/18 09:34 06/15/18 09:34 06/15/18 09:34 Wound Measurements and Assessment WC - Nurse 1 - General Ulcer Measurement Start: 06/15/18 09:34 Freq: Status: Active Protocol: Activity Type Activity Date Activity User E-Sign Co-Sign Detail Recorded Client Recorded Date Recorded By Document 06/15/18 09:34 DL [id number] 06/15/18 09:45 DL 06/15/18 09:34 Wound Center Nurse 1 [Ulcer Assessment] #3 R Breast -Current Size (cm) - Length 9.4 -Current Size (cm) - Width 28.1 -Current Size (cm) - Depth 2.5 -Total Square Cm 264.14 -Photo Taken Yes -Undermining/Tunneling Starts (O' 10 clock) -Undermining/Tunneling Ends (O'clock) 1 -Maximum Distance (cm) 5.8 -Classification - Thickness Full Thickness without Exposed Support Structure -Exudate Amt Large (67-100%) -Exudate Type Serosanguineous -Wound Margin Distinct, Outline Attached -Granulation Amt Medium (34-66%) -Granulation Quality Red -Necrosis Amt Medium (34-66%) -Necrotic Tissue Type Adherent Slough -Structure Exposed N/A -Texture (Yovana-wound Skin Appearance) Localized Edema Scarring -Moisture (Yovana-wound Skin Appearance No Abnormality ) -Color (Yovana-wound Skin Appearance) Rubor -Temperature (Yovana-wound Skin No Abnormality Appearance) (Pt Warm) -Ulcer Cleansing Wound Cleanser -Foul Odor after Cleansing No -Anesthetic Used 4% Lidocaine Solution WC - Nurse 2 - General Ulcer CM Notes Start: 06/15/18 09:34 Freq: Status: Active Protocol: Activity Type Activity Date Activity User E-Sign Co-Sign Detail Recorded Client Recorded Date Recorded By Document 06/15/18 10:14 JF [id number] 06/15/18 10:23 06/15/18 10:14 Wound Center Nurse 2 [Procedure/Treatment] -Time 10:23 -Correct Patient Yes -Correct Side, Site, Position Yes -Correct Procedure Yes -Procedure Performed Yes -Type of Procedure Debridement -Clinical Debridement Subcutaneous -Post Debridement Size (cm) - Length 9.5 -Post Debridement Size (cm) - Width 28.1 -Post Debridement Size (cm) - Depth 2.5 -Total Square Cm 266.95 -Wound/Ulcer Outcome Not Healed -Ulcer Cleansing Rinsed/ Irrigated with Saline -Foul Odor after Cleansing No -Bioengineered Tissue No -Bleeding Controlled with Pressure -Treatment Response Procedure Tolerated Well [See Physician Procedure note for Specifics] Pain Scale: 0-10 Numeric [Pain] -Is Patient Pain Free? Yes Debridement Note Post-Debridement Measurements/Treatment - Nurse 2 - General Ulcer CM Notes Start: 06/15/18 09:34 Freq: Status: Active Protocol: Activity Type Activity Date Activity User E-Sign Co-Sign Detail Recorded Client Recorded Date Recorded By Document 06/15/18 10:14 JF [id number] 06/15/18 10:23 06/15/18 10:14 Wound Center Nurse 2 #3 R Breast -Time 10:23 -Correct Patient Yes -Correct Side, Site, Position Yes -Correct Procedure Yes -Procedure Performed Yes -Type of Procedure Debridement -Clinical Debridement Subcutaneous -Post Debridement Size (cm) - Length 9.5 -Post Debridement Size (cm) - Width 28.1 -Post Debridement Size (cm) - Depth 2.5 -Total Square Cm 266.95 -Wound/Ulcer Outcome Not Healed -Ulcer Cleansing Rinsed/ Irrigated with Saline -Foul Odor after Cleansing No -Bioengineered Tissue No -Bleeding Controlled with Pressure -Treatment Response Procedure Tolerated Well Pain Scale: 0-10 Numeric Is Patient Pain Free? Yes Wound debrided: #3 Right breast. Laterality: Right Wound Grade/Stage: 2. Type of Debridement: Excisional debridement Anesthesia Used: 4% Lidocaine Solution Depth: Down to and including healthy tissue, in the subcutaneous layer Percentage of wound debrided: 100 Instrument Used: 7mm curette Tissue Removed: subcutaneous tissue. Severity: Fat Layer Exposed Amount of bleeding with debridement: Mild Bleeding Controlled with: Pressure Patient tolerated procedure well Assessment/Plan Assessment: 1. Open surgical wound right breast after removal of infected implant. 2. Infected right breast implant reconstruction with abscess. 3. History of recurrent infections bilateral breasts. 4. s/p completion mastectomy right breast. 5. Acquired absence right breast. 6. Disproportion reconstructed breasts. 7. Former smoker. 8. MRSA. Plan: Continue VAC dressing to be changed three times per week at 150 mmHg continuous suction. Continue Ceftriaxone for the Citrobacter koseri. Prealbumin from 05/20/18 was 12.6. Continue nutritional supplementation with protein to help the healing process. Followup 2 weeks to see [facility] Nurse Practitioner. Followup 3 weeks to see me.
== END 2018-06-28 23:59 ==
LOC: WC 09:18
PROVIDERS: Family Provider Student in an Organized Health Care Education/Training Program; PCP Student in an Organized Health Care Education/Training Program; Visit Provider Surgery
DX: N61.1 Abscess of the breast and nipple (principal); Z90.11 Acquired absence of right breast and nipple; Z86.14 Personal history of Methicillin resistant Staphylococcus aureus infection; T85.79XA Infection and inflammatory reaction due to other internal prosthetic devices, implants and grafts, initial encounter; Y83.8 Other surgical procedures as the cause of abnormal reaction of the patient, or of later complication, without mention of misadventure at the time of the procedure; N65.1 Disproportion of reconstructed breast; Z87.891 Personal history of nicotine dependence
CPT/HCPCS: 11042; 11045; 97606

== ENCOUNTER 2018-06-22 12:47 | Outpatient (RCR) | payer MEDICAID, SELFPAY ==
[2018-06-02 17:28] LABS: Hematocrit 34.9 % (37-47); Hemoglobin 10.5 g/dl (12.0-15.0); Mean Corp Hgb Conc 30.1 g/gl (32-36); Mean Corpuscular Hgb 28.7 pg (27.0-32.0); Mean Corpuscular Volume 95.4 fL (81-99); Mean Platelet Vol. 9.8 fl (6.2-12.0); Platelet Count 407 K/mm3 (150-450); RBC Distribution Width SD 55.6 fl (35.1-43.9); Red Blood Count 3.66 M/mm3 (4.2-5.4); White Blood Count 6.6 K/mm3 (4.4-11.0)
[2018-06-02 17:30] LABS: Scan Indicated on CBC? Y/N NO
[2018-06-02 17:34] LABS: Anion Gap 10 (5-15); BUN 12 mg/dL (7-18); BUN/Creat Ratio 17.8 RATIO (10-20); Calcium,Total 8.6 mg/dL (8.5-10.1); Chloride 103 mmol/L (98-107); Creatinine, Serum 0.68 mg/dL (0.55-1.02); EST Glomerular Filtration Rate 100 mL/min (>60); Est Glom Filt Rate - Afr Amer 121 mL/min (>60); Glucose 70 mg/dL (74-106); Potassium 4.1 mmol/L (3.5-5.1); Sodium Level 142 mmol/L (136-145)
[2018-06-02 17:50] LABS: Erythrocyte Sedimentation Rate 60 mm/hr (0-20)
[2018-06-08 14:46] LABS: Hemoglobin 10.8 g/dl (12.0-15.0); Mean Corp Hgb Conc 30.9 g/gl (32-36); Mean Corpuscular Hgb 29.1 pg (27.0-32.0); Mean Corpuscular Volume 94.3 fL (81-99); Mean Platelet Vol. 9.9 fl (6.2-12.0); Platelet Count 368 K/mm3 (150-450); RBC Distribution Width CV 15.6 % (11.6-14.6); RBC Distribution Width SD 51.8 fl (35.1-43.9); Red Blood Count 3.71 M/mm3 (4.2-5.4); White Blood Count 5.6 K/mm3 (4.4-11.0)
[2018-06-08 14:47] LABS: Anion Gap 7 (5-15); BUN 9 mg/dL (7-18); BUN/Creat Ratio 15.2 RATIO (10-20); Calcium,Total 9.1 mg/dL (8.5-10.1); Chloride 104 mmol/L (98-107); Creatinine, Serum 0.59 mg/dL (0.55-1.02); EST Glomerular Filtration Rate 116 mL/min (>60); Erythrocyte Sedimentation Rate 98 mm/hr (0-20); Est Glom Filt Rate - Afr Amer 141 mL/min (>60); Glucose 80 mg/dL (74-106); Potassium 4.2 mmol/L (3.5-5.1); Sodium Level 139 mmol/L (136-145)
[2018-06-08 14:48] LABS: Scan Indicated on CBC? Y/N NO
[2018-06-15 16:48] LABS: Anion Gap 7 (5-15); BUN 8 mg/dL (7-18); BUN/Creat Ratio 13.3 RATIO (10-20); Chloride 104 mmol/L (98-107); EST Glomerular Filtration Rate 114 mL/min (>60); Est Glom Filt Rate - Afr Amer 138 mL/min (>60); Glucose 85 mg/dL (74-106); Hematocrit 35.5 % (37-47); Hemoglobin 10.9 g/dl (12.0-15.0); Mean Corp Hgb Conc 30.7 g/gl (32-36); Mean Corpuscular Hgb 29.1 pg (27.0-32.0); Mean Corpuscular Volume 94.7 fL (81-99); Mean Platelet Vol. 9.6 fl (6.2-12.0); Platelet Count 346 K/mm3 (150-450); Potassium 4.2 mmol/L (3.5-5.1); RBC Distribution Width CV 15.3 % (11.6-14.6); RBC Distribution Width SD 51.4 fl (35.1-43.9); Red Blood Count 3.75 M/mm3 (4.2-5.4); Sodium Level 138 mmol/L (136-145); White Blood Count 9.2 K/mm3 (4.4-11.0)
[2018-06-15 16:50] LABS: Scan Indicated on CBC? Y/N NO
[2018-06-15 17:08] LABS: Erythrocyte Sedimentation Rate 76 mm/hr (0-20)
[2018-06-22 12:57] LABS: Erythrocyte Sedimentation Rate 89 mm/hr (0-20)
[2018-06-22 13:00] LABS: Hematocrit 35.8 % (37-47); Hemoglobin 10.8 g/dl (12.0-15.0); Mean Corp Hgb Conc 30.2 g/gl (32-36); Mean Corpuscular Hgb 28.1 pg (27.0-32.0); Mean Corpuscular Volume 93.2 fL (81-99); Mean Platelet Vol. 9.8 fl (6.2-12.0); Platelet Count 366 K/mm3 (150-450); RBC Distribution Width CV 15.4 % (11.6-14.6); RBC Distribution Width SD 52.5 fl (35.1-43.9); Red Blood Count 3.84 M/mm3 (4.2-5.4); Scan Indicated on CBC? Y/N NO
[2018-06-22 13:16] LABS: Anion Gap 4 (5-15); BUN 8 mg/dL (7-18); BUN/Creat Ratio 12.9 RATIO (10-20); Calcium,Total 8.8 mg/dL (8.5-10.1); Chloride 106 mmol/L (98-107); Creatinine, Serum 0.62 mg/dL (0.55-1.02); EST Glomerular Filtration Rate 110 mL/min (>60); Est Glom Filt Rate - Afr Amer 134 mL/min (>60); Glucose 83 mg/dL (74-106); Potassium 4.4 mmol/L (3.5-5.1); Sodium Level 141 mmol/L (136-145)
== END 2018-06-28 23:59 ==
LOC: HHLAB 12:47
PROVIDERS: Internal Medicine Infectious Disease; Family Provider Student in an Organized Health Care Education/Training Program; PCP Student in an Organized Health Care Education/Training Program; Visit Provider Surgery
DX: N61.1 Abscess of the breast and nipple (principal); Z90.11 Acquired absence of right breast and nipple; N65.1 Disproportion of reconstructed breast; Z86.14 Personal history of Methicillin resistant Staphylococcus aureus infection; T81.4XXA Infection following a procedure, initial encounter; E03.9 Hypothyroidism, unspecified; Z45.2 Encounter for adjustment and management of vascular access device; Z51.81 Encounter for therapeutic drug level monitoring
CPT/HCPCS: 80048; 85027; 85652

== ENCOUNTER 2018-06-29 12:32 | Outpatient (RCR) | payer MEDICAID, SELFPAY ==
[2018-06-29 12:53] LABS: Erythrocyte Sedimentation Rate 72 mm/hr (0-20)
[2018-06-29 12:55] LABS: Hematocrit 35.6 % (37-47); Hemoglobin 10.7 g/dl (12.0-15.0); Mean Corp Hgb Conc 30.1 g/gl (32-36); Mean Corpuscular Hgb 28.2 pg (27.0-32.0); Mean Corpuscular Volume 93.7 fL (81-99); Mean Platelet Vol. 9.6 fl (6.2-12.0); Platelet Count 372 K/mm3 (150-450); RBC Distribution Width CV 15.2 % (11.6-14.6); RBC Distribution Width SD 52.1 fl (35.1-43.9); Scan Indicated on CBC? Y/N NO
[2018-06-29 13:00] LABS: Anion Gap 8 (5-15); BUN 8 mg/dL (7-18); BUN/Creat Ratio 11.8 RATIO (10-20); Calcium,Total 8.4 mg/dL (8.5-10.1); Chloride 104 mmol/L (98-107); Creatinine, Serum 0.68 mg/dL (0.55-1.02); EST Glomerular Filtration Rate 99 mL/min (>60); Est Glom Filt Rate - Afr Amer 120 mL/min (>60); Glucose 110 mg/dL (74-106); Potassium 4.2 mmol/L (3.5-5.1); Sodium Level 140 mmol/L (136-145)
== END 2018-06-29 14:00 | disposition home or self-care (01) ==
LOC: HHLAB 12:32
PROVIDERS: Internal Medicine Infectious Disease; Family Provider Student in an Organized Health Care Education/Training Program; PCP Student in an Organized Health Care Education/Training Program; Referring Provider Surgery; Visit Provider Surgery
DX: T81.44XA Sepsis following a procedure, initial encounter (principal); Z43.2 Encounter for attention to ileostomy; Z51.81 Encounter for therapeutic drug level monitoring
CPT/HCPCS: 80048; 85027; 85652

== ENCOUNTER 2018-07-27 08:00 | Outpatient (RCR) | payer MEDICARE, MEDICAID, SELFPAY ==
[2018-06-29 01:43] VITALS: BP 153/91; PULSE 100; RESP 18; TEMP 37.4
[2018-06-29 08:38] VITALS: BP 142/74; PULSE 74; RESP 18; TEMP 37.3
--- NOTE | 2018-06-29 15:07 | PCM.WC.PN ---
(1) Open wound of right breast with complication Status: Acute Current Visit: Yes Code(s): S21.001A - Unspecified open wound of right breast, initial encounter (2) Non-pressure chronic ulcer of skin of other sites with fat layer exposed Status: Chronic Current Visit: Yes Code(s): L98.492 - Non-pressure chronic ulcer of skin of other sites with fat layer exposed Comment: nonhealing ulcer right breast reconstruction (3) Breast implant removal status Status: Acute Current Visit: Yes Code(s): Z98.86 - Personal history of breast implant removal (4) Infection of breast implant Status: Acute Current Visit: No Code(s): T85.79XA - Infection and inflammatory reaction due to other internal prosthetic devices, implants and grafts, initial encounter Comment: right breast reconstruction (5) Deformity of reconstructed breast Status: Chronic Current Visit: No Code(s): N65.0 - Deformity of reconstructed breast Comment: excess mastectomy skin scar contour deformity reconstructed right breast Type of Wound Chief Complaint: Nonhealing MRSA ulcer right breast. History of Wound: Surgery 05/05/18 for delayed right breast reconstruction with removal of saline tissue tradeshow worker with replacement of cohesive gel implant (800 mL) and placement of AlloDerm acellular dermal matrix graft inferiolateral sling (132 cm2) and revision reconstruction right breast with excision of nonhealing ulcer and excess mastectomy skin scar contour deformity. Wound cultures from the surgery were negative for aerobic and anaerobic bacteria. Surgery 05/19/18 revision of right breast reconstruction with incision and drainage and excisional debridement abscess with capsulectomy and removal of infected breast implant. Wound cultures for Citrobacter koseri. She has been on IV Vancomycin and Ceftriaxone. She has history of MRSA from her surgeries in February and March 2017. Progress of Wound: Improving. - Physical Exam Vital Signs Temp Pulse Resp BP 99.1 F 74 18 142/74 H 06/29/18 08:38 06/29/18 08:38 06/29/18 08:38 06/29/18 08:38 General: Alert, Oriented x3 HEENT: PERRLA Oral: Moist Mucosa Lungs: Normal air movement Cardiovascular: Regular Rhythm Skin: Ulcer/ Wound - Right chest wall wound Wound Measurements and Assessment WC - Nurse 1 - General Ulcer Measurement Start: 06/29/18 08:38 Freq: Status: Active Protocol: Activity Type Activity Date Activity User E-Sign Co-Sign Detail Recorded Client Recorded Date Recorded By Document 06/29/18 08:38 DV [id number] 06/29/18 08:45 DV 06/29/18 08:38 Wound Center Nurse 1 [Ulcer Assessment] #3 R Breast -Combined with other wound No -Current Size (cm) - Length 7.2 -Current Size (cm) - Width 24.1 -Current Size (cm) - Depth 2.5 -Total Square Cm 173.52 -Photo Taken No -Epithelialization Medium 34-66% -Tunneling No -Undermining/Tunneling Starts (O' 12 clock) -Maximum Distance (cm) 5.7 -Circular Undermining No -Classification - Thickness Full Thickness without Exposed Support Structure -Exudate Amt Large (67-100%) -Exudate Type Serosanguineous -Wound Margin Distinct, Outline Attached -Granulation Amt Large (67-100%) -Granulation Quality Red -Slough/Fibrin Yes -Necrosis Amt Large (67-100%) -Necrotic Tissue Type Adherent Slough -Structure Exposed None/Limited to Skin Breakdown -Texture (Yovana-wound Skin Appearance) Assessed Scarring -Moisture (Yovana-wound Skin Appearance No Abnormality ) Weeping -Color (Yovana-wound Skin Appearance) No Abnormality Assessed -Temperature (Yovana-wound Skin No Abnormality Appearance) (Pt Warm) -Tenderness on Palpation (Yovana-wound Yes Skin Appearance) -Ulcer Cleansing Rinsed/ Irrigated with Saline -Foul Odor after Cleansing No -Anesthetic Used 4% Lidocaine Solution WC - Nurse 2 - General Ulcer CM Notes Start: 06/29/18 08:38 Freq: Status: Active Protocol: Activity Type Activity Date Activity User E-Sign Co-Sign Detail Recorded Client Recorded Date Recorded By Document 06/29/18 09:09 JF [id number] 06/29/18 09:12 JF 06/29/18 09:09 Wound Center Nurse 2 [Procedure/Treatment] -Time 09:11 -Correct Patient Yes -Correct Side, Site, Position Yes -Correct Procedure Yes -Procedure Performed Yes -Type of Procedure Debridement -Clinical Debridement Subcutaneous -Post Debridement Size (cm) - Length 8 -Post Debridement Size (cm) - Width 24.5 -Post Debridement Size (cm) - Depth 2.5 -Total Square Cm 196.0 -Wound/Ulcer Outcome Not Healed -Ulcer Cleansing Rinsed/ Irrigated with Saline -Foul Odor after Cleansing No -Bioengineered Tissue No -Bleeding Controlled with Pressure -Other tunnel at 12--- -4.8cm -Treatment Response Procedure Tolerated Well [See Physician Procedure note for Specifics] Pain Scale: 0-10 Numeric [Pain] -Is Patient Pain Free? Yes Musculoskeletal: No Tenderness to Palpation of Joints or Extremities Neurological: Neuro grossly intact Psych/Mental Status: Normal Affect, Appropriate, Alert and oriented to time, place, person, mood and affect Debridement Note Post-Debridement Measurements/Treatment WC - Nurse 2 - General Ulcer CM Notes Start: 06/29/18 08:38 Freq: Status: Active Protocol: Activity Type Activity Date Activity User E-Sign Co-Sign Detail Recorded Client Recorded Date Recorded By Document 06/29/18 09:09 ALEXANDRU [id number] 06/29/18 09:12 ALEXANDRU 06/29/18 09:09 Wound Center Nurse 2 #3 R Breast -Time 09:11 -Correct Patient Yes -Correct Side, Site, Position Yes -Correct Procedure Yes -Procedure Performed Yes -Type of Procedure Debridement -Clinical Debridement Subcutaneous -Post Debridement Size (cm) - Length 8 -Post Debridement Size (cm) - Width 24.5 -Post Debridement Size (cm) - Depth 2.5 -Total Square Cm 196.0 -Wound/Ulcer Outcome Not Healed -Ulcer Cleansing Rinsed/ Irrigated with Saline -Foul Odor after Cleansing No -Bioengineered Tissue No -Bleeding Controlled with Pressure -Other tunnel at 12--- -4.8cm -Treatment Response Procedure Tolerated Well Pain Scale: 0-10 Numeric Is Patient Pain Free? Yes Wound debrided: Right chest wall Laterality: Right Type of Debridement: Excisional debridement Anesthesia Used: 4% Lidocaine Solution Depth: in the subcutaneous layer Percentage of wound debrided: 100 Instrument Used: 7mm curette Tissue Removed: Subcutaneous tissue and slough. Severity: Fat Layer Exposed Amount of bleeding with debridement: Mild Bleeding Controlled with: Pressure Patient tolerated procedure well Assessment/Plan Active Problems (Last Reviewed 11/13/17 @ 09:21 by Tiff Abdi) Open wound of right breast with complication (Acute) Breast implant removal status (Acute) Non-pressure chronic ulcer of skin of other sites with fat layer exposed (Chronic) nonhealing ulcer right breast reconstruction Assessment: 1. 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 2. Acquired absence right breast. 3. Recurrent infections bilateral breasts. 4. Disproportion reconstructed breasts. 5. Former smoker. 6. MRSA. Plan: Continue wound VAC at 150 mmHg. Receiving Ceftriaxone IV through PICC line. Vancomycin is finished. She will complete her ceftriaxone this coming 07/03/2018. Will maintain PICC line until seen by Dr. Stevenson next week in the wound center. Labs from 05/18/2018 ESR 77, C-reactive protein 185. Continue to wash periwound with soap and water before VAC change. Use skin prep as needed. Encourage high protein diet. Follow-up in 1 week. Code Visit 111xxx-113xx: 65089 Ashley subq tissue 20 sq cm/< Add On Codes: 92445 Ashley subq tissue add-on - 9
--- NOTE | 2018-06-29 15:11 | PN.PCM_ITS ---
(1) Open wound of right breast with complication Status: Acute Current Visit: Yes Code(s): S21.001A - Unspecified open wound of right breast, initial encounter (2) Non-pressure chronic ulcer of skin of other sites with fat layer exposed Status: Chronic Current Visit: Yes Code(s): L98.492 - Non-pressure chronic ulcer of skin of other sites with fat layer exposed Comment: nonhealing ulcer right breast reconstruction (3) Breast implant removal status Status: Acute Current Visit: Yes Code(s): Z98.86 - Personal history of breast implant removal (4) Infection of breast implant Status: Acute Current Visit: No Code(s): T85.79XA - Infection and inflammatory reaction due to other internal prosthetic devices, implants and grafts, initial encounter Comment: right breast reconstruction (5) Deformity of reconstructed breast Status: Chronic Current Visit: No Code(s): N65.0 - Deformity of reconstructed breast Comment: excess mastectomy skin scar contour deformity reconstructed right breast Type of Wound Chief Complaint: Nonhealing MRSA ulcer right breast. History of Wound: Surgery 05/05/18 for delayed right breast reconstruction with removal of saline tissue selling manager with replacement of cohesive gel implant (800 mL) and placement of AlloDerm acellular dermal matrix graft inferiolateral sling (132 cm2) and revision reconstruction right breast with excision of nonhealing ulcer and excess mastectomy skin scar contour deformity. Wound cultures from the surgery were negative for aerobic and anaerobic bacteria. Surgery 05/19/18 revision of right breast reconstruction with incision and drainage and excisional debridement abscess with capsulectomy and removal of infected breast implant. Wound cultures for Citrobacter koseri. She has been on IV Vancomycin a nd Ceftriaxone. She has history of MRSA from her surgeries in February and March 2017. Progress of Wound: Improving. - Physical Exam Vital Signs Temp Pulse Resp BP 99.1 F 74 18 142/74 H 06/29/18 08:38 06/29/18 08:38 06/29/18 08:38 06/29/18 08:38 General: Alert, Oriented x3 HEENT: PERRLA Oral: Moist Mucosa Lungs: Normal air movement Cardiovascular: Regular Rhythm Skin: Ulcer/ Wound - Right chest wall wound Wound Measurements and Assessment WC - Nurse 1 - General Ulcer Measurement Start: 06/29/18 08:38 Freq: Status: Active Protocol: Activity Type Activity Date Activity User E-Sign Co-Sign Detail Recorded Client Recorded Date Recorded By Document 06/29/18 08:38 DV [id number] 06/29/18 08:45 DV 06/29/18 08:38 Wound Center Nurse 1 [Ulcer Assessment] #3 R Breast -Combined with other wound No -Current Size (cm) - Length 7.2 -Current Size (cm) - Width 24.1 -Current Size (cm) - Depth 2.5 -Total Square Cm 173.52 -Photo Taken No -Epithelialization Medium 34-66% -Tunneling No -Undermining/Tunneling Starts (O' 12 clock) -Maximum Distance (cm) 5.7 -Circular Undermining No -Classification - Thickness Full Thickness without Exposed Support Structure -Exudate Amt Large (67-100%) -Exudate Type Serosanguineous -Wound Margin Distinct, Outline Attached -Granulation Amt Large (67-100%) -Granulation Quality Red -Slough/Fibrin Yes -Necrosis Amt Large (67-100%) -Necrotic Tissue Type Adherent Slough -Structure Exposed None/Limited to Skin Breakdown -Texture (Yovana-wound Skin Appearance) Assessed Scarring -Moisture (Yovana-wound Skin Appearance No Abnormality ) Weeping -Color (Yovana-wound Skin Appearance) No Abnormality Assessed -Temperature (Yovana-wound Skin No Abnormality Appearance) (Pt Warm) -Tenderness on Palpation (Yovana-wound Yes Skin Appearance) -Ulcer Cleansing Rinsed/ Irrigated with Saline -Foul Odor after Cleansing No -Anesthetic Used 4% Lidocaine Solution WC - Nurse 2 - General Ulcer CM Notes Start: 06/29/18 08:38 Freq: Status: Active Protocol: Activity Type Activity Date Activity User E-Sign Co-Sign Detail Recorded Client Recorded Date Recorded By Document 06/29/18 09:09 JF [id number] 06/29/18 09:12 JF 06/29/18 09:09 Wound Center Nurse 2 [Procedure/Treatment] -Time 09:11 -Correct Patient Yes -Correct Side, Site, Position Yes -Correct Procedure Yes -Procedure Performed Yes -Type of Procedure Debridement -Clinical Debridement Subcutaneous -Post Debridement Size (cm) - Length 8 -Post Debridement Size (cm) - Width 24.5 -Post Debridement Size (cm) - Depth 2.5 -Total Square Cm 196.0 -Wound/Ulcer Outcome Not Healed -Ulcer Cleansing Rinsed/ Irrigated with Saline -Foul Odor after Cleansing No -Bioengineered Tissue No -Bleeding Controlled with Pressure -Other tunnel at 12--- -4.8cm -Treatment Response Procedure Tolerated Well [See Physician Procedure note for Specifics] Pain Scale: 0-10 Numeric [Pain] -Is Patient Pain Free? Yes Musculoskeletal: No Tenderness to Palpation of Joints or Extremities Neurological: Neuro grossly intact Psych/Mental Status: Normal Affect, Appropriate, Alert and oriented to time, place, person, mood and affect Debridement Note Post-Debridement Measurements/Treatment WC - Nurse 2 - General Ulcer CM Notes Start: 06/29/18 08:38 Freq: Status: Active Protocol: Activity Type Activity Date Activity User E-Sign Co-Sign Detail Recorded Client Recorded Date Recorded By Document 06/29/18 09:09 ALEXANDRU [id number] 06/29/18 09:12 ALEXANDRU 06/29/18 09:09 Wound Center Nurse 2 #3 R Breast -Time 09:11 -Correct Patient Yes -Correct Side, Site, Position Yes -Correct Procedure Yes -Procedure Performed Yes -Type of Procedure Debridement -Clinical Debridement Subcutaneous -Post Debridement Size (cm) - Length 8 -Post Debridement Size (cm) - Width 24.5 -Post Debridement Size (cm) - Depth 2.5 -Total Square Cm 196.0 -Wound/Ulcer Outcome Not Healed -Ulcer Cleansing Rinsed/ Irrigated with Saline -Foul Odor after Cleansing No -Bioengineered Tissue No -Bleeding Controlled with Pressure -Other tunnel at 12--- -4.8cm -Treatment Response Procedure Tolerated Well Pain Scale: 0-10 Numeric Is Patient Pain Free? Yes Wound debrided: Right chest wall Laterality: Right Type of Debridement: Excisional debridement Anesthesia Used: 4% Lidocaine Solution Depth: in the subcutaneous layer Percentage of wound debrided: 100 Instrument Used: 7mm curette Tissue Removed: Subcutaneous tissue and slough. Severity: Fat Layer Exposed Amount of bleeding with debridement: Mild Bleeding Controlled with: Pressure Patient tolerated procedure well Assessment/Plan Active Problems (Last Reviewed 11/13/17 @ 09:21 by Tiff Abdi) Open wound of right breast with complication (Acute) Breast implant removal status (Acute) Non-pressure chronic ulcer of skin of other sites with fat layer exposed (Chronic) nonhealing ulcer right breast reconstruction Assessment: 1. 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 2. Acquired absence right breast. 3. Recurrent infections bilateral breasts. 4. Disproportion reconstructed breasts. 5. Former smoker. 6. MRSA. Plan: Continue wound VAC at 150 mmHg. Receiving Ceftriaxone IV through PICC line. Vancomycin is finished. She will complete her ceftriaxone this coming 07/03/2018. Will maintain PICC line until seen by Dr. Stevenson next week in the wound center. Labs from 05/18/2018 ESR 77, C-reactive protein 185. Continue to wash periwound with soap and water before VAC change. Use skin prep as needed. Encourage high protein diet. Follow-up in 1 week. Code Visit 111xxx-113xx: 79475 Ashley subq tissue 20 sq cm/< Add On Codes: [id number] Ashley subq tissue add-on - 9
[2018-07-06 08:13] VITALS: BP 139/68; PULSE 102; RESP 20; TEMP 36.6
--- NOTE | 2018-07-06 22:30 | PN.PCM_ITS ---
Type of Wound Date of Service: 07/06/18 Chief Complaint: Nonhealing MRSA ulcer right breast s/p removal of infected implant. History of Wound: Surgery 05/19/18 - Revision right breast reconstruction with incision and drainage and excisional debridement abscess with capsulectomy and removal infected breast implant. Surgery 05/05/18 - 1. Delayed right breast reconstruction with removal of saline tissue general magistrate with replacement cohesive gel implant (800 ml) and placement of Alloderm acellular dermal matrix graft inferolateral sling (132 cm2). 2. Revision reconstructed right breast with excision nonhealing ulcer and excess mastectomy skin scar contour deformity. Wound care - VAC. Operative culture - Citrobacter koseri. She was treated with Vancomycin perioperatively because of her history of MRSA. She was placed on Cefepime initially and then was changed to Ceftriaxone and has finished it without difficulty. The PICC has been pulled. Prealbumin from 05/20/18 was 12.6. She takes nutritional supplementation with protein to help the healing process. Today she denies any fever. Her appetite is good. Progress of Wound: Improved. - Physical Exam Vital Signs Temp Pulse Resp BP 97.9 F 102 H 20 H 139/68 H 07/06/18 08:13 07/06/18 08:13 07/06/18 08:13 07/06/18 08:13 Wound Measurements and Assessment WC - Nurse 1 - General Ulcer Measurement Start: 06/29/18 08:38 Freq: Status: Active Protocol: Activity Type Activity Date Activity User E-Sign Co-Sign Detail Recorded Client Recorded Date Recorded By Document 07/06/18 08:13 DL [id number] 07/06/18 08:20 DL 07/06/18 08:13 Wound Center Nurse 1 [Ulcer Assessment] #3 R Breast -Current Size (cm) - Length 6.6 -Current Size (cm) - Width 22 -Current Size (cm) - Depth 2 -Total Square Cm 145.2 -Photo Taken No -Exudate Amt Large (67-100%) -Exudate Type Serosanguineous -Wound Margin Distinct, Outline Attached -Granulation Amt Medium (34-66%) -Granulation Quality [place] Red -Necrosis Amt Medium (34-66%) -Necrotic Tissue Type Adherent Slough -Structure Exposed N/A -Texture (Yovana-wound Skin Appearance) Scarring -Moisture (Yovana-wound Skin Appearance No Abnormality ) -Color (Yovana-wound Skin Appearance) No Abnormality -Temperature (Yovana-wound Skin No Abnormality Appearance) (Pt Warm) -Ulcer Cleansing Wound Cleanser -Foul Odor after Cleansing No -Anesthetic Used 4% Lidocaine Solution - Nurse 2 - General Ulcer CM Notes Start: 06/29/18 08:38 Freq: Status: Active Protocol: Activity Type Activity Date Activity User E-Sign Co-Sign Detail Recorded Client Recorded Date Recorded By Document 07/06/18 08:46 [id number] 07/06/18 08:48 07/06/18 08:46 Wound Center Nurse 2 [Procedure/Treatment] -Time 08:48 -Correct Patient Yes -Correct Side, Site, Position Yes -Correct Procedure Yes -Procedure Performed Yes -Type of Procedure Debridement -Clinical Debridement Subcutaneous -Post Debridement Size (cm) - Length 6.6 -Post Debridement Size (cm) - Width 22.1 -Post Debridement Size (cm) - Depth 2.0 -Total Square Cm 145.86 -Wound/Ulcer Outcome Not Healed -Ulcer Cleansing Rinsed/ Irrigated with Saline -Foul Odor after Cleansing No -Bioengineered Tissue No -Bleeding Controlled with Pressure -Treatment Response Procedure Tolerated Well [See Physician Procedure note for Specifics] Pain Scale: 0-10 Numeric [Pain] -Is Patient Pain Free? Yes Debridement Note Post-Debridement Measurements/Treatment - Nurse 2 - General Ulcer CM Notes Start: 06/29/18 08:38 Freq: Status: Active Protocol: Activity Type Activity Date Activity User E-Sign Co-Sign Detail Recorded Client Recorded Date Recorded By Document 06/29/18 09:09 JF [id number] 06/29/18 09:12 Document 07/06/18 08:46 [id number] 07/06/18 08:48 06/29/18 07/06/18 09:09 08:46 Wound Center Nurse 2 #3 R Breast -Time 09:11 08:48 -Correct Patient Yes Yes -Correct Side, Site, Position Yes Yes -Correct Procedure Yes Yes -Procedure Performed Yes Yes -Type of Procedure Debridement Debridement -Clinical Debridement Subcutaneous Subcutaneous -Post Debridement Size (cm) - Length 8 6.6 -Post Debridement Size (cm) - Width 24.5 22.1 -Post Debridement Size (cm) - Depth 2.5 2.0 -Total Square Cm 196.0 145.86 -Wound/Ulcer Outcome Not Healed Not Healed -Ulcer Cleansing Rinsed/ Rinsed/ Irrigated with Irrigated with Saline Saline -Foul Odor after Cleansing No No -Bioengineered Tissue No No -Bleeding Controlled with Pressure Pressure -Other tunnel at 12--- -4.8cm -Treatment Response Procedure Procedure Tolerated Well Tolerated Well Pain Scale: 0-10 Numeric Is Patient Pain Free? Yes Yes Wound debrided: #3 Right breast. Laterality: Right Wound Grade/Stage: 2. Type of Debridement: Excisional debridement Anesthesia Used: 4% Lidocaine Solution Depth: Down to and including healthy tissue, in the subcutaneous layer Percentage of wound debrided: 100 Instrument Used: 7mm curette Tissue Removed: subcutaneous tissue. Severity: Fat Layer Exposed Amount of bleeding with debridement: Mild Bleeding Controlled with: Pressure Patient tolerated procedure well Assessment/Plan Assessment: 1. Nonhealing MRSA ulcer right breast after removal of infected implant. 2. Infected right breast implant reconstruction with abscess. 3. History of recurrent infections bilateral breasts. 4. s/p completion mastectomy right breast. 5. Acquired absence right breast. 6. Disproportion reconstructed breasts. 7. Former smoker. 8. MRSA. Plan: Continue VAC dressing to be changed three times per week at 150 mmHg continuous suction. The Ceftriaxone for the Citrobacter koseri has been completed. Prealbumin from 05/20/18 was 12.6. Continue nutritional supplementation with protein to help the healing process. Renewed her Dilaudid for pain (40 tabs). Renewed her Valium for spasm (30 tabs). Followup one week to see [facility] Nurse Practitioner. Followup 2 weeks to see me.
[2018-07-13 08:09] VITALS: BP 135/84; PULSE 103; RESP 18; TEMP 37.2
--- NOTE | 2018-07-13 13:17 | PCM.WC.PN ---
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 Current Visit: Yes Code(s): L98.492 - Non-pressure chronic ulcer of skin of other sites with fat layer exposed Comment: nonhealing ulcer right breast reconstruction (2) Breast implant removal status Status: Acute Current Visit: No Code(s): Z98.86 - Personal history of breast implant removal (3) Infection of breast implant Status: Acute Current Visit: No Code(s): T85.79XA - Infection and inflammatory reaction due to other internal prosthetic devices, implants and grafts, initial encounter Comment: right breast reconstruction (4) Deformity of reconstructed breast Status: Chronic Current Visit: No Code(s): N65.0 - Deformity of reconstructed breast Comment: excess mastectomy skin scar contour deformity reconstructed right breast Type of Wound Date of Service: 07/13/18 Chief Complaint: Nonhealing MRSA ulcer right breast s/p removal of infected implant. History of Wound: Surgery 05/19/18 - Revision right breast reconstruction with incision and drainage and excisional debridement abscess with capsulectomy and removal infected breast implant. Surgery 05/05/18 - 1. Delayed right breast reconstruction with removal of saline tissue restaurant associate with replacement cohesive gel implant (800 ml) and placement of Alloderm acellular dermal matrix graft inferolateral sling (132 cm2). 2. Revision reconstructed right breast with excision nonhealing ulcer and excess mastectomy skin scar contour deformity. Wound care - VAC. Operative culture - Citrobacter koseri. She was treated with Vancomycin perioperatively because of her history of MRSA. She was placed on Cefepime initially and then was changed to Ceftriaxone and has finished it without difficulty. The PICC has been pulled. Prealbumin from 05/20/18 was 12.6. She takes nutritional supplementation with protein to help the healing process. Today she denies any fever. Her appetite is good. Progress of Wound: Improved. - Physical Exam Vital Signs Temp Pulse Resp BP 98.9 F 103 H 18 135/84 H 07/13/18 08:09 07/13/18 08:09 07/13/18 08:09 07/13/18 08:09 General: Alert, Oriented x3, Cooperative HEENT: Atraumatic Oral: Moist Mucosa Extremities: No edema Skin: Ulcer/ Wound Wound Measurements and Assessment WC - Nurse 1 - General Ulcer Measurement Start: 06/29/18 08:38 Freq: Status: Active Protocol: Activity Type Activity Date Activity User E-Sign Co-Sign Detail Recorded Client Recorded Date Recorded By Document 07/13/18 08:09 MW [id number] 07/13/18 08:22 MW 07/13/18 08:09 Wound Center Nurse 1 [Ulcer Assessment] #3 R Breast -Combined with other wound No -Current Size (cm) - Length 7.0 -Current Size (cm) - Width 19.5 -Current Size (cm) - Depth 2.1 -Total Square Cm 136.50 -Date of Last Picture (Recall this 07/13/18 field) -Photo Taken Yes -Epithelialization Small 1-33% -Tunneling No -Undermining/Tunneling No -Circular Undermining No -Exudate Amt Large (67-100%) -Exudate Type Serosanguineous -Wound Margin Distinct, Outline Attached -Granulation Amt Large (67-100%) -Granulation Quality [place] -Slough/Fibrin Yes -Necrosis Amt Small (1-33%) -Necrotic Tissue Type Adherent Slough -Structure Exposed N/A -Texture (Yovana-wound Skin Appearance) Assessed Localized Edema -Moisture (Yovana-wound Skin Appearance No Abnormality ) Assessed -Color (Yovana-wound Skin Appearance) No Abnormality Assessed -Temperature (Yovana-wound Skin No Abnormality Appearance) (Pt Warm) -Tenderness on Palpation (Yovana-wound No Skin Appearance) -Ulcer Cleansing Rinsed/ Irrigated with Saline -Foul Odor after Cleansing No -Anesthetic Used 4% Lidocaine Solution [Edema Assessment] -Lower Limb Edema Present No WC - Nurse 2 - General Ulcer CM Notes Start: 06/29/18 08:38 Freq: Status: Active Protocol: Activity Type Activity Date Activity User E-Sign Co-Sign Detail Recorded Client Recorded Date Recorded By Document 07/13/18 08:46 JF [id number] 07/13/18 08:47 JF 07/13/18 08:46 Wound Center Nurse 2 [Procedure/Treatment] #3 R Breast -Time 08:46 -Correct Patient Yes -Correct Side, Site, Position Yes -Correct Procedure Yes -Procedure Performed Yes -Type of Procedure Debridement -Clinical Debridement Subcutaneous -Post Debridement Size (cm) - Length 7.1 -Post Debridement Size (cm) - Width 19.7 -Post Debridement Size (cm) - Depth 2.1 -Total Square Cm 139.87 -Wound/Ulcer Outcome Not Healed -Ulcer Cleansing Rinsed/ Irrigated with Saline -Foul Odor after Cleansing No -Bioengineered Tissue No -Bleeding Controlled with Pressure -Treatment Response Procedure Tolerated Well [See Physician Procedure note for Specifics] Pain Scale: 0-10 Numeric [Pain] -Is Patient Pain Free? Yes Musculoskeletal: No Tenderness to Palpation of Joints or Extremities Neurological: Neuro grossly intact Psych/Mental Status: Normal Affect, Appropriate Debridement Note Post-Debridement Measurements/Treatment WC - Nurse 2 - General Ulcer CM Notes Start: 06/29/18 08:38 Freq: Status: Active Protocol: Activity Type Activity Date Activity User E-Sign Co-Sign Detail Recorded Client Recorded Date Recorded By Document 06/29/18 09:09 [id number] 06/29/18 09:12 Document 07/06/18 08:46 [id number] 07/06/18 08:48 Document 07/13/18 08:46 [id number] 07/13/18 08:47 06/29/18 07/06/18 07/13/18 09:09 08:46 08:46 Wound Center Nurse 2 #3 R Breast -Time 09:11 08:48 08:46 -Correct Patient Yes Yes Yes -Correct Side, Site, Position Yes Yes Yes -Correct Procedure Yes Yes Yes -Procedure Performed Yes Yes Yes -Type of Procedure Debridement Debridement Debridement -Clinical Debridement Subcutaneous Subcutaneous Subcutaneous -Post Debridement Size (cm) - Length 8 6.6 7.1 -Post Debridement Size (cm) - Width 24.5 22.1 19.7 -Post Debridement Size (cm) - Depth 2.5 2.0 2.1 -Total Square Cm 196.0 145.86 139.87 -Wound/Ulcer Outcome Not Healed Not Healed Not Healed -Ulcer Cleansing Rinsed/ Rinsed/ Rinsed/ Irrigated with Irrigated with Irrigated with Saline Saline Saline -Foul Odor after Cleansing No No No -Bioengineered Tissue No No No -Bleeding Controlled with Pressure Pressure Pressure -Other tunnel at 12--- -4.8cm -Treatment Response Procedure Procedure Procedure Tolerated Well Tolerated Well Tolerated Well Pain Scale: 0-10 Numeric Is Patient Pain Free? Yes Yes Yes Wound debrided: Right chest ulcer Laterality: Right Type of Debridement: Excisional debridement Anesthesia Used: 4% Lidocaine Solution Depth: Down to and including healthy tissue, in the subcutaneous layer Percentage of wound debrided: 100 Instrument Used: 7mm curette Tissue Removed: Subcutaneous tissue and slough Severity: Fat Layer Exposed Amount of bleeding with debridement: None Bleeding Controlled with: Compression and gauze Patient tolerated procedure well Assessment/Plan Active Problems (Last Reviewed 11/13/17 @ 09:21 by Tiff Abdi) Non-pressure chronic ulcer of skin of other sites with fat layer exposed (Chronic) nonhealing ulcer right breast reconstruction Assessment: 1. Nonhealing MRSA ulcer right breast after removal of infected implant. 2. Infected right breast implant reconstruction with abscess. 3. History of recurrent infections bilateral breasts. 4. s/p completion mastectomy right breast. 5. Acquired absence right breast. 6. Disproportion reconstructed breasts. 7. Former smoker. 8. MRSA. Plan: Continue VAC dressing to be changed three times per week at 150 mmHg continuous suction. The Ceftriaxone for the Citrobacter koseri has been completed. Prealbumin from 05/20/18 was 12.6. Continue nutritional supplementation with protein to help the healing process. Followup [address] Stevenson. Code Visit [id number]
--- NOTE | 2018-07-13 13:22 | PN.PCM_ITS ---
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 Current Visit: Yes Code(s): L98.492 - Non-pressure chronic ulcer of skin of other sites with fat layer exposed Comment: nonhealing ulcer right breast reconstruction (2) Breast implant removal status Status: Acute Current Visit: No Code(s): Z98.86 - Personal history of breast implant removal (3) Infection of breast implant Status: Acute Current Visit: No Code(s): T85.79XA - Infection and inflammatory reaction due to other internal prosthetic devices, implants and grafts, initial encounter Comment: right breast reconstruction (4) Deformity of reconstructed breast Status: Chronic Current Visit: No Code(s): N65.0 - Deformity of reconstructed breast Comment: excess mastectomy skin scar contour deformity reconstructed right breast Type of Wound Date of Service: 07/13/18 Chief Complaint: Nonhealing MRSA ulcer right breast s/p removal of infected implant. History of Wound: Surgery 05/19/18 - Revision right breast reconstruction with in cision and drainage and excisional debridement abscess with capsulectomy and removal infected breast implant. Surgery 05/05/18 - 1. Delayed right breast reconstruction with removal of saline tissue porcelain enamel sprayer with replacement cohesive gel implant (800 ml) and placement of Alloderm acellular dermal matrix graft inferolateral sling (132 cm2). 2. Revision reconstructed right breast with excision nonhealing ulcer and excess mastectomy skin scar contour deformity. Wound care - VAC. Operative culture - Citrobacter koseri. She was treated with Vancomycin perioperatively because of her history of MRSA. She was placed on Cefepime initially and then was changed to Ceftriaxone and has finished it without difficulty. The PICC has been pulled. Prealbumin from 05/20/18 was 12.6. She takes nutritional supplementation with protein to help the healing process. Today she denies any fever. Her appetite is good. Progress of Wound: Improved. - Physical Exam Vital Signs Temp Pulse Resp BP 98.9 F 103 H 18 135/84 H 07/13/18 08:09 07/13/18 08:09 07/13/18 08:09 07/13/18 08:09 General: Alert, Oriented x3, Cooperative HEENT: Atraumatic Oral: Moist Mucosa Extremities: No edema Skin: Ulcer/ Wound Wound Measurements and Assessment WC - Nurse 1 - General Ulcer Measurement Start: 06/29/18 08:38 Freq: Status: Active Protocol: Activity Type Activity Date Activity User E-Sign Co-Sign Detail Recorded Client Recorded Date Recorded By Document 07/13/18 08:09 MW [id number] 07/13/18 08:22 MW 07/13/18 08:09 Wound Center Nurse 1 [Ulcer Assessment] #3 R Breast -Combined with other wound No -Current Size (cm) - Length 7.0 -Current Size (cm) - Width 19.5 -Current Size (cm) - Depth 2.1 -Total Square Cm 136.50 -Date of Last Picture (Recall this 07/13/18 field) -Photo Taken Yes -Epithelialization Small 1-33% -Tunneling No -Undermining/Tunneling No -Circular Undermining No -Exudate Amt Large (67-100%) -Exudate Type Serosanguineous -Wound Margin Distinct, Outline Attached -Granulation Amt Large (67-100%) -Granulation Quality [place] -Slough/Fibrin Yes -Necrosis Amt Small (1-33%) -Necrotic Tissue Type Adherent Slough -Structure Exposed N/A -Texture (Yovana-wound Skin Appearance) Assessed Localized Edema -Moisture (Yovana-wound Skin Appearance No Abnormality ) Assessed -Color (Yovana-wound Skin Appearance) No Abnormality Assessed -Temperature (Yovana-wound Skin No Abnormality Appearance) (Pt Warm) -Tenderness on Palpation (Yovana-wound No Skin Appearance) -Ulcer Cleansing Rinsed/ Irrigated with Saline -Foul Odor after Cleansing No -Anesthetic Used 4% Lidocaine Solution [Edema Assessment] -Lower Limb Edema Present No WC - Nurse 2 - General Ulcer CM Notes Start: 06/29/18 08:38 Freq: Status: Active Protocol: Activity Type Activity Date Activity User E-Sign Co-Sign Detail Recorded Client Recorded Date Recorded By Document 07/13/18 08:46 JF [id number] 07/13/18 08:47 JF 07/13/18 08:46 Wound Center Nurse 2 [Procedure/Treatment] #3 R Breast -Time 08:46 -Correct Patient Yes -Correct Side, Site, Position Yes -Correct Procedure Yes -Procedure Performed Yes -Type of Procedure Debridement -Clinical Debridement Subcutaneous -Post Debridement Size (cm) - Length 7.1 -Post Debridement Size (cm) - Width 19.7 -Post Debridement Size (cm) - Depth 2.1 -Total Square Cm 139.87 -Wound/Ulcer Outcome Not Healed -Ulcer Cleansing Rinsed/ Irrigated with Saline -Foul Odor after Cleansing No -Bioengineered Tissue No -Bleeding Controlled with Pressure -Treatment Response Procedure Tolerated Well [See Physician Procedure note for Specifics] Pain Scale: 0-10 Numeric [Pain] -Is Patient Pain Free? Yes Musculoskeletal: No Tenderness to Palpation of Joints or Extremities Neurological: Neuro grossly intact Psych/Mental Status: Normal Affect, Appropriate Debridement Note Post-Debridement Measurements/Treatment WC - Nurse 2 - General Ulcer CM Notes Start: 06/29/18 08:38 Freq: Status: Active Protocol: Activity Type Activity Date Activity User E-Sign Co-Sign Detail Recorded Client Recorded Date Recorded By Document 06/29/18 09:09 [id number] 06/29/18 09:12 Document 07/06/18 08:46 [id number] 07/06/18 08:48 Document 07/13/18 08:46 [id number] 07/13/18 08:47 06/29/18 07/06/18 07/13/18 09:09 08:46 08:46 Wound Center Nurse 2 #3 R Breast -Time 09:11 08:48 08:46 -Correct Patient Yes Yes Yes -Correct Side, Site, Position Yes Yes Yes -Correct Procedure Yes Yes Yes -Procedure Performed Yes Yes Yes -Type of Procedure Debridement Debridement Debridement -Clinical Debridement Subcutaneous Subcutaneous Subcutaneous -Post Debridement Size (cm) - Length 8 6.6 7.1 -Post Debridement Size (cm) - Width 24.5 22.1 19.7 -Post Debridement Size (cm) - Depth 2.5 2.0 2.1 -Total Square Cm 196.0 145.86 139.87 -Wound/Ulcer Outcome Not Healed Not Healed Not Healed -Ulcer Cleansing Rinsed/ Rinsed/ Rinsed/ Irrigated with Irrigated with Irrigated with Saline Saline Saline -Foul Odor after Cleansing No No No -Bioengineered Tissue No No No -Bleeding Controlled with Pressure Pressure Pressure -Other tunnel at 12--- -4.8cm -Treatment Response Procedure Procedure Procedure Tolerated Well Tolerated Well Tolerated Well Pain Scale: 0-10 Numeric Is Patient Pain Free? Yes Yes Yes Wound debrided: Right chest ulcer Laterality: Right Type of Debridement: Excisional debridement Anesthesia Used: 4% Lidocaine Solution Depth: Down to and including healthy tissue, in the subcutaneous layer Percentage of wound debrided: 100 Instrument Used: 7mm curette Tissue Removed: Subcutaneous tissue and slough Severity: Fat Layer Exposed Amount of bleeding with debridement: None Bleeding Controlled with: Compression and gauze Patient tolerated procedure well Assessment/Plan Active Problems (Last Reviewed 11/13/17 @ 09:21 by Tiff Abdi) Non-pressure chronic ulcer of skin of other sites with fat layer exposed (Chronic) nonhealing ulcer right breast reconstruction Assessment: 1. Nonhealing MRSA ulcer right breast after removal of infected implant. 2. Infected right breast implant reconstruction with abscess. 3. History of recurrent infections bilateral breasts. 4. s/p completion mastectomy right breast. 5. Acquired absence right breast. 6. Disproportion reconstructed breasts. 7. Former smoker. 8. MRSA. Plan: Continue VAC dressing to be changed three times per week at 150 mmHg continuous suction. The Ceftriaxone for the Citrobacter koseri has been completed. Prealbumin from 05/20/18 was 12.6. Continue nutritional supplementation with protein to help the healing process. Followup [address] Stevenson. Code Visit [id number]
[2018-07-20 08:18] VITALS: BP 135/75; PULSE 101; RESP 18; TEMP 37.3
--- NOTE | 2018-07-20 19:42 | PCM.WC.PN ---
Type of Wound Date of Service: 07/20/18 Chief Complaint: Nonhealing MRSA ulcer right breast s/p removal of infected implant. History of Wound: Surgery 05/19/18 - Revision right breast reconstruction with incision and drainage and excisional debridement abscess with capsulectomy and removal infected breast implant. Surgery 05/05/18 - 1. Delayed right breast reconstruction with removal of saline tissue physical director with replacement cohesive gel implant (800 ml) and placement of Alloderm acellular dermal matrix graft inferolateral sling (132 cm2). 2. Revision reconstructed right breast with excision nonhealing ulcer and excess mastectomy skin scar contour deformity. Wound care - VAC. Operative culture - Citrobacter koseri. She was treated with Vancomycin perioperatively because of her history of MRSA. She was placed on Cefepime initially and then was changed to Ceftriaxone and has finished it without difficulty. The PICC has been pulled. Prealbumin from 05/20/18 was 12.6. She takes nutritional supplementation with protein to help the healing process. Today she denies any fever. Her appetite is good. Progress of Wound: Improved. - Physical Exam Vital Signs Temp Pulse Resp BP 99.1 F 101 H 18 135/75 H 07/20/18 08:18 07/20/18 08:18 07/20/18 08:18 07/20/18 08:18 Wound Measurements and Assessment WC - Nurse 1 - General Ulcer Measurement Start: 06/29/18 08:38 Freq: Status: Active Protocol: Activity Type Activity Date Activity User E-Sign Co-Sign Detail Recorded Client Recorded Date Recorded By Document 07/20/18 08:18 DV [id number] 07/20/18 08:21 DV 07/20/18 08:18 Wound Center Nurse 1 [Ulcer Assessment] #3 R Breast -Combined with other wound No -Current Size (cm) - Length 7.0 -Current Size (cm) - Width 18.0 -Current Size (cm) - Depth 2.0 -Total Square Cm 126.00 -Photo Taken No -Epithelialization Small 1-33% -Tunneling No -Undermining/Tunneling Starts (O' 12 clock) -Undermining/Tunneling Ends (O'clock) 2 -Maximum Distance (cm) 4.8 -Circular Undermining No -Classification - Thickness Full Thickness without Exposed Support Structure -Exudate Amt Large (67-100%) -Exudate Type Yellow/Green -Wound Margin Distinct, Outline Attached -Granulation Quality [place] Red -Slough/Fibrin Yes -Necrosis Amt Large (67-100%) -Necrotic Tissue Type Adherent Slough -Structure Exposed N/A -Texture (Yovana-wound Skin Appearance) Assessed Scarring Rash -Moisture (Yovana-wound Skin Appearance Assessed ) Weeping -Color (Yovana-wound Skin Appearance) Assessed Erythema -Temperature (Yovana-wound Skin No Abnormality Appearance) (Pt Warm) -Tenderness on Palpation (Yovana-wound No Skin Appearance) -Ulcer Cleansing Rinsed/ Irrigated with Saline -Foul Odor after Cleansing No -Anesthetic Used 4% Lidocaine Solution - Nurse 2 - General Ulcer CM Notes Start: 06/29/18 08:38 Freq: Status: Active Protocol: Activity Type Activity Date Activity User E-Sign Co-Sign Detail Recorded Client Recorded Date Recorded By Document 07/20/18 08:46 [id number] 07/20/18 08:47 07/20/18 08:46 Wound Center Nurse 2 [Procedure/Treatment] -Time 08:46 -Correct Patient Yes -Correct Side, Site, Position Yes -Correct Procedure Yes -Procedure Performed Yes -Type of Procedure Debridement -Clinical Debridement Subcutaneous -Post Debridement Size (cm) - Length 7.1 -Post Debridement Size (cm) - Width 18.1 -Post Debridement Size (cm) - Depth 2 -Total Square Cm 128.51 -Wound/Ulcer Outcome Not Healed -Ulcer Cleansing Rinsed/ Irrigated with Saline -Foul Odor after Cleansing No -Bioengineered Tissue No -Bleeding Controlled with Pressure -Treatment Response Procedure Tolerated Well [See Physician Procedure note for Specifics] Pain Scale: 0-10 Numeric [Pain] -Is Patient Pain Free? Yes Debridement Note Post-Debridement Measurements/Treatment - Nurse 2 - General Ulcer CM Notes Start: 06/29/18 08:38 Freq: Status: Active Protocol: Activity Type Activity Date Activity User E-Sign Co-Sign Detail Recorded Client Recorded Date Recorded By Document 06/29/18 09:09 ALEXANDRU [id number] 06/29/18 09:12 Document 07/06/18 08:46 ALEXANDRU [id number] 07/06/18 08:48 Document 07/13/18 08:46 ALEXANDRU [id number] 07/13/18 08:47 Document 07/20/18 08:46 ALEXANDRU [id number] 07/20/18 08:47 JF 06/29/18 07/06/18 07/13/18 09:09 08:46 08:46 Wound Center Nurse 2 #3 R Breast -Time 09:11 08:48 08:46 -Correct Patient Yes Yes Yes -Correct Side, Site, Position Yes Yes Yes -Correct Procedure Yes Yes Yes -Procedure Performed Yes Yes Yes -Type of Procedure Debridement Debridement Debridement -Clinical Debridement Subcutaneous Subcutaneous Subcutaneous -Post Debridement Size (cm) - Length 8 6.6 7.1 -Post Debridement Size (cm) - Width 24.5 22.1 19.7 -Post Debridement Size (cm) - Depth 2.5 2.0 2.1 -Total Square Cm 196.0 145.86 139.87 -Wound/Ulcer Outcome Not Healed Not Healed Not Healed -Ulcer Cleansing Rinsed/ Rinsed/ Rinsed/ Irrigated with Irrigated with Irrigated with Saline Saline Saline -Foul Odor after Cleansing No No No -Bioengineered Tissue No No No -Bleeding Controlled with Pressure Pressure Pressure -Other tunnel at 12--- -4.8cm -Treatment Response Procedure Procedure Procedure Tolerated Well Tolerated Well Tolerated Well Pain Scale: 0-10 Numeric Is Patient Pain Free? Yes Yes Yes 07/20/18 08:46 Wound Center Nurse 2 #3 R Breast -Time 08:46 -Correct Patient Yes -Correct Side, Site, Position Yes -Correct Procedure Yes -Procedure Performed Yes -Type of Procedure Debridement -Clinical Debridement Subcutaneous -Post Debridement Size (cm) - Length 7.1 -Post Debridement Size (cm) - Width 18.1 -Post Debridement Size (cm) - Depth 2 -Total Square Cm 128.51 -Wound/Ulcer Outcome Not Healed -Ulcer Cleansing Rinsed/ Irrigated with Saline -Foul Odor after Cleansing No -Bioengineered Tissue No -Bleeding Controlled with Pressure -Other -Treatment Response Procedure Tolerated Well Pain Scale: 0-10 Numeric Is Patient Pain Free? Yes Wound debrided: #3 Right breast. Laterality: Right Wound Grade/Stage: 2. Type of Debridement: Excisional debridement Anesthesia Used: 4% Lidocaine Solution Depth: Down to and including healthy tissue, in the subcutaneous layer Percentage of wound debrided: 100 Instrument Used: 7mm curette Tissue Removed: subcutaneous tissue. Severity: Fat Layer Exposed Amount of bleeding with debridement: Mild Bleeding Controlled with: Pressure Patient tolerated procedure well Assessment/Plan Assessment: 1. Nonhealing MRSA ulcer right breast after removal of infected implant. 2. Infected right breast implant reconstruction with abscess. 3. History of recurrent infections bilateral breasts. 4. s/p completion mastectomy right breast. 5. Acquired absence right breast. 6. Disproportion reconstructed breasts. 7. Former smoker. 8. MRSA. Plan: Continue VAC dressing to be changed three times per week at 150 mmHg continuous suction. The Ceftriaxone for the Citrobacter koseri has been completed. Prealbumin from 05/20/18 was 12.6. Continue nutritional supplementation with protein to help the healing process. Renewed her Dilaudid for pain (30 tabs). Followup one week.
--- NOTE | 2018-07-21 21:43 | PN.PCM_ITS ---
Type of Wound Date of Service: 07/20/18 Chief Complaint: Nonhealing MRSA ulcer right breast s/p removal of infected implant. History of Wound: Surgery 05/19/18 - Revision right breast reconstruction with incision and drainage and excisional debridement abscess with capsulectomy and removal infected breast implant. Surgery 05/05/18 - 1. Delayed right breast reconstruction with removal of saline tissue cooler operator with replacement cohesive gel implant (800 ml) and placement of Alloderm acellular dermal matrix graft inferolateral sling (132 cm2). 2. Revision reconstructed right breast with excision nonhealing ulcer and excess mastectomy skin scar contour deformity. Wound care - VAC. Operative culture - Citrobacter koseri. She was treated with Vancomycin perioperatively because of her history of MRSA. She was placed on Cefepime initially and then was changed to Ceftriaxone and has finished it without difficulty. The PICC has been pulled. Prealbumin from 05/20/18 was 12.6. She takes nutritional supplementation with protein to help the healing process. Today she denies any fever. Her appetite is good. Progress of Wound: Improved. - Physical Exam Vital Signs Temp Pulse Resp BP 99.1 F 101 H 18 135/75 H 07/20/18 08:18 07/20/18 08:18 07/20/18 08:18 07/20/18 08:18 Wound Measurements and Assessment WC - Nurse 1 - General Ulcer Measurement Start: 06/29/18 08:38 Freq: Status: Active Protocol: Activity Type Activity Date Activity User E-Sign Co-Sign Detail Recorded Client Recorded Date Recorded By Document 07/20/18 08:18 DV [id number] 07/20/18 08:21 DV 07/20/18 08:18 Wound Center Nurse 1 [Ulcer Assessment] #3 R Breast -Combined with other wound No -Current Size (cm) - Length 7.0 -Current Size (cm) - Width 18.0 -Current Size (cm) - Depth 2.0 -Total Square Cm 126.00 -Photo Taken No -Epithelialization Small 1-33% -Tunneling No -Undermining/Tunneling Starts (O' 12 clock) -Undermining/Tunneling Ends (O'clock) 2 -Maximum Distance (cm) 4.8 -Circular Undermining No -Classification - Thickness Full Thickness without Exposed Support Structure -Exudate Amt Large (67-100%) -Exudate Type Yellow/Green -Wound Margin Distinct, Outline Attached -Granulation Quality [place] Red -Slough/Fibrin Yes -Necrosis Amt Large (67-100%) -Necrotic Tissue Type Adherent Slough -Structure Exposed N/A -Texture (Yovana-wound Skin Appearance) Assessed Scarring Rash -Moisture (Yovana-wound Skin Appearance Assessed ) Weeping -Color (Yovana-wound Skin Appearance) Assessed Erythema -Temperature (Yovana-wound Skin No Abnormality Appearance) (Pt Warm) -Tenderness on Palpation (Yovana-wound No Skin Appearance) -Ulcer Cleansing Rinsed/ Irrigated with Saline -Foul Odor after Cleansing No -Anesthetic Used 4% Lidocaine Solution - Nurse 2 - General Ulcer CM Notes Start: 06/29/18 08:38 Freq: Status: Active Protocol: Activity Type Activity Date Activity User E-Sign Co-Sign Detail Recorded Client Recorded Date Recorded By Document 07/20/18 08:46 [id number] 07/20/18 08:47 07/20/18 08:46 Wound Center Nurse 2 [Procedure/Treatment] -Time 08:46 -Correct Patient Yes -Correct Side, Site, Position Yes -Correct Procedure Yes -Procedure Performed Yes -Type of Procedure Debridement -Clinical Debridement Subcutaneous -Post Debridement Size (cm) - Length 7.1 -Post Debridement Size (cm) - Width 18.1 -Post Debridement Size (cm) - Depth 2 -Total Square Cm 128.51 -Wound/Ulcer Outcome Not Healed -Ulcer Cleansing Rinsed/ Irrigated with Saline -Foul Odor after Cleansing No -Bioengineered Tissue No -Bleeding Controlled with Pressure -Treatment Response Procedure Tolerated Well [See Physician Procedure note for Specifics] Pain Scale: 0-10 Numeric [Pain] -Is Patient Pain Free? Yes Debridement Note Post-Debridement Measurements/Treatment - Nurse 2 - General Ulcer CM Notes Start: 06/29/18 08:38 Freq: Status: Active Protocol: Activity Type Activity Date Activity User E-Sign Co-Sign Detail Recorded Client Recorded Date Recorded By Document 06/29/18 09:09 ALEXANDRU [id number] 06/29/18 09:12 Document 07/06/18 08:46 ALEXANDRU [id number] 07/06/18 08:48 Document 07/13/18 08:46 ALEXANDRU [id number] 07/13/18 08:47 Document 07/20/18 08:46 ALEXANDRU [id number] 07/20/18 08:47 JF 06/29/18 07/06/18 07/13/18 09:09 08:46 08:46 Wound Center Nurse 2 #3 R Breast -Time 09:11 08:48 08:46 -Correct Patient Yes Yes Yes -Correct Side, Site, Position Yes Yes Yes -Correct Procedure Yes Yes Yes -Procedure Performed Yes Yes Yes -Type of Procedure Debridement Debridement Debridement -Clinical Debridement Subcutaneous Subcutaneous Subcutaneous -Post Debridement Size (cm) - Length 8 6.6 7.1 -Post Debridement Size (cm) - Width 24.5 22.1 19.7 -Post Debridement Size (cm) - Depth 2.5 2.0 2.1 -Total Square Cm 196.0 145.86 139.87 -Wound/Ulcer Outcome Not Healed Not Healed Not Healed -Ulcer Cleansing Rinsed/ Rinsed/ Rinsed/ Irrigated with Irrigated with Irrigated with Saline Saline Saline -Foul Odor after Cleansing No No No -Bioengineered Tissue No No No -Bleeding Controlled with Pressure Pressure Pressure -Other tunnel at 12--- -4.8cm -Treatment Response Procedure Procedure Procedure Tolerated Well Tolerated Well Tolerated Well Pain Scale: 0-10 Numeric Is Patient Pain Free? Yes Yes Yes 07/20/18 08:46 Wound Center Nurse 2 #3 R Breast -Time 08:46 -Correct Patient Yes -Correct Side, Site, Position Yes -Correct Procedure Yes -Procedure Performed Yes -Type of Procedure Debridement -Clinical Debridement Subcutaneous -Post Debridement Size (cm) - Length 7.1 -Post Debridement Size (cm) - Width 18.1 -Post Debridement Size (cm) - Depth 2 -Total Square Cm 128.51 -Wound/Ulcer Outcome Not Healed -Ulcer Cleansing Rinsed/ Irrigated with Saline -Foul Odor after Cleansing No -Bioengineered Tissue No -Bleeding Controlled with Pressure -Other -Treatment Response Procedure Tolerated Well Pain Scale: 0-10 Numeric Is Patient Pain Free? Yes Wound debrided: #3 Right breast. Laterality: Right Wound Grade/Stage: 2. Type of Debridement: Excisional debridement Anesthesia Used: 4% Lidocaine Solution Depth: Down to and including healthy tissue, in the subcutaneous layer Percentage of wound debrided: 100 Instrument Used: 7mm curette Tissue Removed: subcutaneous tissue. Severity: Fat Layer Exposed Amount of bleeding with debridement: Mild Bleeding Controlled with: Pressure Patient tolerated procedure well Assessment/Plan Assessment: 1. Nonhealing MRSA ulcer right breast after removal of infected implant. 2. Infected right breast implant reconstruction with abscess. 3. History of recurrent infections bilateral breasts. 4. s/p completion mastectomy right breast. 5. Acquired absence right breast. 6. Disproportion reconstructed breasts. 7. Former smoker. 8. MRSA. Plan: Continue VAC dressing to be changed three times per week at 150 mmHg continuous suction. The Ceftriaxone for the Citrobacter koseri has been completed. Prealbumin from 05/20/18 was 12.6. Continue nutritional supplementation with protein to help the healing process. Renewed her Dilaudid for pain (30 tabs). Followup one week.
[2018-07-27 08:15] VITALS: BP 143/93; PULSE 94; RESP 20; TEMP 36.6
--- NOTE | 2018-07-27 22:18 | PCM.WC.PN ---
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 History of Wound: Surgery 05/19/18 - Revision right breast reconstruction with incision and drainage and excisional debridement abscess with capsulectomy and removal infected breast implant. Surgery 05/05/18 - 1. Delayed right breast reconstruction with removal of saline tissue consumer services consultant with replacement cohesive gel implant (800 ml) and placement of Alloderm acellular dermal matrix graft inferolateral sling (132 cm2). 2. Revision reconstructed right breast with excision nonhealing ulcer and excess mastectomy skin scar contour deformity. Wound care - VAC. Operative culture - Citrobacter koseri. She was treated with Vancomycin perioperatively because of her history of MRSA. She was placed on Cefepime initially and then was changed to Ceftriaxone and has finished it without difficulty. Prealbumin from 05/20/18 was 12.6. She takes nutritional supplementation with protein to help the healing process. Today she denies any fever. Her appetite is good. Progress of Wound: Improved. - Physical Exam Vital Signs Temp Pulse Resp BP 98 F 94 20 H 143/93 H 07/27/18 08:15 07/27/18 08:15 07/27/18 08:15 07/27/18 08:15 Wound Measurements and Assessment WC - Nurse 1 - General Ulcer Measurement Start: 06/29/18 08:38 Freq: Status: Active Protocol: Activity Type Activity Date Activity User E-Sign Co-Sign Detail Recorded Client Recorded Date Recorded By Document 07/27/18 08:15 DL [id number] 07/27/18 08:27 DL 07/27/18 08:15 Wound Center Nurse 1 [Ulcer Assessment] #3 R Breast -Current Size (cm) - Length 6.2 -Current Size (cm) - Width 16.6 -Current Size (cm) - Depth 1.6 -Total Square Cm 102.92 -Photo Taken No -Undermining/Tunneling Starts (O' 10 clock) -Undermining/Tunneling Ends (O'clock) 1 -Maximum Distance (cm) 4.2 -Exudate Amt Large (67-100%) -Exudate Type Serosanguineous -Wound Margin Thickened & Rolled Under -Granulation Amt Medium (34-66%) -Granulation Quality [place] -Necrosis Amt Medium (34-66%) -Necrotic Tissue Type Adherent Slough -Structure Exposed N/A -Texture (Yovana-wound Skin Appearance) Scarring -Moisture (Yovana-wound Skin Appearance No Abnormality ) -Color (Yovana-wound Skin Appearance) No Abnormality -Temperature (Yovana-wound Skin No Abnormality Appearance) (Pt Warm) -Tenderness on Palpation (Yovana-wound No Skin Appearance) -Ulcer Cleansing Rinsed/ Irrigated with Saline -Anesthetic Used 4% Lidocaine Solution WC - Nurse 2 - General Ulcer CM Notes Start: 06/29/18 08:38 Freq: Status: Active Protocol: Activity Type Activity Date Activity User E-Sign Co-Sign Detail Recorded Client Recorded Date Recorded By Document 07/27/18 08:51 [id number] 07/27/18 08:53 07/27/18 08:51 Wound Center Nurse 2 [Procedure/Treatment] -Time 08:51 -Correct Patient Yes -Correct Side, Site, Position Yes -Correct Procedure Yes -Procedure Performed Yes -Type of Procedure Debridement -Clinical Debridement Subcutaneous -Post Debridement Size (cm) - Length 6.3 -Post Debridement Size (cm) - Width 16.6 -Post Debridement Size (cm) - Depth 1.6 -Total Square Cm 104.58 -Wound/Ulcer Outcome Not Healed -Ulcer Cleansing Rinsed/ Irrigated with Saline -Foul Odor after Cleansing No -Bioengineered Tissue No -Bleeding Controlled with Pressure -Treatment Response Procedure Tolerated Well [See Physician Procedure note for Specifics] Pain Scale: 0-10 Numeric [Pain] -Is Patient Pain Free? Yes Debridement Note Post-Debridement Measurements/Treatment - Nurse 2 - General Ulcer CM Notes Start: 06/29/18 08:38 Freq: Status: Active Protocol: Activity Type Activity Date Activity User E-Sign Co-Sign Detail Recorded Client Recorded Date Recorded By Document 06/29/18 09:09 [id number] 06/29/18 09:12 Document 07/06/18 08:46 [id number] 07/06/18 08:48 Document 07/13/18 08:46 [id number] 07/13/18 08:47 Document 07/20/18 08:46 [id number] 07/20/18 08:47 Document 07/27/18 08:51 [id number] 07/27/18 08:53 06/29/18 07/06/18 07/13/18 09:09 08:46 08:46 Wound Center Nurse 2 #3 R Breast -Time 09:11 08:48 08:46 -Correct Patient Yes Yes Yes -Correct Side, Site, Position Yes Yes Yes -Correct Procedure Yes Yes Yes -Procedure Performed Yes Yes Yes -Type of Procedure Debridement Debridement Debridement -Clinical Debridement Subcutaneous Subcutaneous Subcutaneous -Post Debridement Size (cm) - Length 8 6.6 7.1 -Post Debridement Size (cm) - Width 24.5 22.1 19.7 -Post Debridement Size (cm) - Depth 2.5 2.0 2.1 -Total Square Cm 196.0 145.86 139.87 -Wound/Ulcer Outcome Not Healed Not Healed Not Healed -Ulcer Cleansing Rinsed/ Rinsed/ Rinsed/ Irrigated with Irrigated with Irrigated with Saline Saline Saline -Foul Odor after Cleansing No No No -Bioengineered Tissue No No No -Bleeding Controlled with Pressure Pressure Pressure -Other tunnel at 12--- -4.8cm -Treatment Response Procedure Procedure Procedure Tolerated Well Tolerated Well Tolerated Well Pain Scale: 0-10 Numeric Is Patient Pain Free? Yes Yes Yes 07/20/18 07/27/18 08:46 08:51 Wound Center Nurse 2 #3 R Breast -Time 08:46 08:51 -Correct Patient Yes Yes -Correct Side, Site, Position Yes Yes -Correct Procedure Yes Yes -Procedure Performed Yes Yes -Type of Procedure Debridement Debridement -Clinical Debridement Subcutaneous Subcutaneous -Post Debridement Size (cm) - Length 7.1 6.3 -Post Debridement Size (cm) - Width 18.1 16.6 -Post Debridement Size (cm) - Depth 2 1.6 -Total Square Cm 128.51 104.58 -Wound/Ulcer Outcome Not Healed Not Healed -Ulcer Cleansing Rinsed/ Rinsed/ Irrigated with Irrigated with Saline Saline -Foul Odor after Cleansing No No -Bioengineered Tissue No No -Bleeding Controlled with Pressure Pressure -Other -Treatment Response Procedure Procedure Tolerated Well Tolerated Well Pain Scale: 0-10 Numeric Is Patient Pain Free? Yes Yes Wound debrided: #3 Right breast. Laterality: Right Wound Grade/Stage: 2. Type of Debridement: Excisional debridement Anesthesia Used: 4% Lidocaine Solution Depth: Down to and including healthy tissue, in the subcutaneous layer Percentage of wound debrided: 100 Instrument Used: 7mm curette Tissue Removed: subcutaneous tissue. Severity: Fat Layer Exposed Amount of bleeding with debridement: Mild Bleeding Controlled with: Pressure Patient tolerated procedure well Assessment/Plan Assessment: 1. Nonhealing MRSA ulcer right breast after removal of infected implant. 2. Infected right breast implant reconstruction with abscess. 3. History of recurrent infections bilateral breasts. 4. s/p completion mastectomy right breast. 5. Acquired absence right breast. 6. Disproportion reconstructed breasts. 7. Former smoker. 8. MRSA. Plan: Continue VAC dressing to be changed three times per week at 150 mmHg continuous suction. The Ceftriaxone for the Citrobacter koseri has been completed. Prealbumin from 05/20/18 was 12.6. Continue nutritional supplementation with protein to help the healing process. Renewed her Dilaudid for pain (20 tabs). Renewed her Valium for spasm (20 tabs). Followup one week to see [place] Nurse Practitioner. Followup 2 weeks to see me.
== END 2018-07-29 23:59 ==
LOC: WC 08:00
PROVIDERS: Family Provider Student in an Organized Health Care Education/Training Program; PCP Student in an Organized Health Care Education/Training Program; Visit Provider Surgery
DX: L98.492 Non-pressure chronic ulcer of skin of other sites with fat layer exposed (principal); Z98.86 Personal history of breast implant removal; N65.0 Deformity of reconstructed breast; Z86.14 Personal history of Methicillin resistant Staphylococcus aureus infection; Z87.891 Personal history of nicotine dependence; Z51.81 Encounter for therapeutic drug level monitoring; Z43.2 Encounter for attention to ileostomy; T81.44XA Sepsis following a procedure, initial encounter
CPT/HCPCS: 11042; 11045; 80048; 85027; 85652; 97606

== ENCOUNTER 2018-08-24 08:45 | Outpatient (RCR) | payer MEDICARE, MEDICAID, SELFPAY ==
[2018-07-30 01:39] VITALS: BP 143/93; PULSE 94; RESP 20; TEMP 36.6
[2018-08-03 08:23] VITALS: BP 117/70; PULSE 101; RESP 16; TEMP 36.8
--- NOTE | 2018-08-03 09:13 | PCM.WC.PN ---
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 Current Visit: Yes Code(s): L98.492 - Non-pressure chronic ulcer of skin of other sites with fat layer exposed Comment: nonhealing ulcer right breast reconstruction (2) History of MRSA infection Status: Chronic Current Visit: Yes Code(s): Z86.14 - Personal history of Methicillin resistant Staphylococcus aureus infection (3) Infection of breast implant Status: Acute Current Visit: No Code(s): T85.79XA - Infection and inflammatory reaction due to other internal prosthetic devices, implants and grafts, initial encounter Comment: right breast reconstruction (4) Cellulitis of right breast Status: Acute Current Visit: No Code(s): N61.0 - Mastitis without abscess Type of Wound Date of Service: 08/03/18 Chief Complaint: Nonhealing MRSA ulcer right breast s/p removal of infected implant. History of Wound: Surgery 05/19/18 - Revision right breast reconstruction with incision and drainage and excisional debridement abscess with capsulectomy and removal infected breast implant. Surgery 05/05/18 - 1. Delayed right breast reconstruction with removal of saline tissue egg breaker with replacement cohesive gel implant (800 ml) and placement of Alloderm acellular dermal matrix graft inferolateral sling (132 cm2). 2. Revision reconstructed right breast with excision nonhealing ulcer and excess mastectomy skin scar contour deformity. Wound care - VAC. Operative culture - Citrobacter koseri. She was treated with Vancomycin perioperatively because of her history of MRSA. She was placed on Cefepime initially and then was changed to Ceftriaxone and has finished it without difficulty. The PICC has been pulled. Prealbumin from 05/20/18 was 12.6. She takes nutritional supplementation with protein to help the healing process. Today she denies any fever. Her appetite is good. Progress of Wound: Improved. - Physical Exam Vital Signs Temp Pulse Resp BP 98.2 F 101 H 16 117/70 08/03/18 08:23 08/03/18 08:23 08/03/18 08:23 08/03/18 08:23 General: Alert, Oriented x3, Cooperative HEENT: Atraumatic Oral: Moist Mucosa Lungs: Normal air movement Extremities: No clubbing, No edema Skin: Ulcer/ Wound - right breast/chest opened area Wound Measurements and Assessment WC - Nurse 1 - General Ulcer Measurement Start: 08/03/18 08:23 Freq: Status: Active Protocol: Activity Type Activity Date Activity User E-Sign Co-Sign Detail Recorded Client Recorded Date Recorded By Document 08/03/18 08:23 [id number] 08/03/18 08:24 08/03/18 08:23 Wound Center Nurse 1 [Ulcer Assessment] #3 R Breast -Combined with other wound No -Current Size (cm) - Length 6.5 -Current Size (cm) - Width 16 -Current Size (cm) - Depth 3.5 -Total Square Cm 104.0 -Photo Taken No -Epithelialization Small 1-33% -Tunneling No -Undermining/Tunneling Yes -Undermining/Tunneling Starts (O' 9 clock) -Undermining/Tunneling Ends (O'clock) 3 -Maximum Distance (cm) 3.5 -Circular Undermining No -Exudate Amt Small (1-33%) -Exudate Type Serosanguineous -Wound Margin Distinct, Outline Attached -Granulation Amt Large (67-100%) -Granulation Quality Red -Slough/Fibrin Yes -Necrosis Amt Small (1-33%) -Necrotic Tissue Type Adherent Slough -Texture (Yovana-wound Skin Appearance) Assessed Scarring -Moisture (Yovana-wound Skin Appearance No Abnormality ) Assessed -Color (Yovana-wound Skin Appearance) No Abnormality Assessed -Temperature (Yovana-wound Skin No Abnormality Appearance) (Pt Warm) -Tenderness on Palpation (Yovana-wound No Skin Appearance) -Ulcer Cleansing Rinsed/ Irrigated with Saline -Foul Odor after Cleansing No -Anesthetic Used 4% Lidocaine Solution WC - Nurse 2 - General Ulcer CM Notes Start: 08/03/18 08:23 Freq: Status: Active Protocol: Activity Type Activity Date Activity User E-Sign Co-Sign Detail Recorded Client Recorded Date Recorded By Document 08/03/18 08:41 [id number] 08/03/18 08:43 08/03/18 08:41 Wound Center Nurse 2 [Procedure/Treatment] -Time 08:42 -Correct Patient Yes -Correct Side, Site, Position Yes -Correct Procedure Yes -Procedure Performed Yes -Type of Procedure Debridement -Clinical Debridement Subcutaneous -Post Debridement Size (cm) - Length 6.3 -Post Debridement Size (cm) - Width 16.0 -Post Debridement Size (cm) - Depth 0.5 -Total Square Cm 100.80 -Wound/Ulcer Outcome Not Healed -Ulcer Cleansing Rinsed/ Irrigated with Saline -Foul Odor after Cleansing No -Bioengineered Tissue No -Bleeding Controlled with Pressure -Other tunnel at noon- --2.8cm -Treatment Response Procedure Tolerated Well [See Physician Procedure note for Specifics] Pain Scale: 0-10 Numeric [Pain] -Is Patient Pain Free? Yes Musculoskeletal: No Tenderness to Palpation of Joints or Extremities Neurological: Neuro grossly intact Psych/Mental Status: Normal Affect, Appropriate Debridement Note Post-Debridement Measurements/Treatment WC - Nurse 2 - General Ulcer CM Notes Start: 08/03/18 08:23 Freq: Status: Active Protocol: Activity Type Activity Date Activity User E-Sign Co-Sign Detail Recorded Client Recorded Date Recorded By Document 08/03/18 08:41 [email or web address] [id number] 08/03/18 08:43 ALEXANDRU 08/03/18 08:41 Wound Center Nurse 2 #3 R Breast -Time 08:42 -Correct Patient Yes -Correct Side, Site, Position Yes -Correct Procedure Yes -Procedure Performed Yes -Type of Procedure Debridement -Clinical Debridement Subcutaneous -Post Debridement Size (cm) - Length 6.3 -Post Debridement Size (cm) - Width 16.0 -Post Debridement Size (cm) - Depth 0.5 -Total Square Cm 100.80 -Wound/Ulcer Outcome Not Healed -Ulcer Cleansing Rinsed/ Irrigated with Saline -Foul Odor after Cleansing No -Bioengineered Tissue No -Bleeding Controlled with Pressure -Other tunnel at noon- --2.8cm -Treatment Response Procedure Tolerated Well Pain Scale: 0-10 Numeric Is Patient Pain Free? Yes Wound debrided: right breast/chest Laterality: Right Type of Debridement: Excisional debridement Anesthesia Used: 4% Lidocaine Solution Depth: Down to and including healthy tissue, in the subcutaneous layer Percentage of wound debrided: 100 Instrument Used: 5mm curette Tissue Removed: Subcutaneous tissue and slough Severity: Fat Layer Exposed Amount of bleeding with debridement: Mild Bleeding Controlled with: Pressure Assessment/Plan Active Problems (Last Reviewed 11/13/17 @ 09:21 by Tiff Abdi) Open wound of right breast with complication (Chronic) Non-pressure chronic ulcer of skin of other sites with fat layer exposed (Chronic) nonhealing ulcer right breast reconstruction History of MRSA infection (Chronic) Assessment: 1. Nonhealing MRSA ulcer right breast after removal of infected implant. 2. Infected right breast implant reconstruction with abscess. 3. History of recurrent infections bilateral breasts. 4. s/p completion mastectomy right breast. 5. Acquired absence right breast. 6. Disproportion reconstructed breasts. 7. Former smoker. 8. MRSA. Plan: Continue VAC dressing to be changed three times per week at 150 mmHg continuous suction. The Ceftriaxone for the Citrobacter koseri has been completed. Prealbumin from 05/20/18 was 12.6. Continue nutritional supplementation with protein to help the healing process. Renewed her Dilaudid for pain (30 tabs). Followup one week. Code Visit 111xxx-113xx: 73239 Ashley subq tissue 20 sq cm/< Add On Codes: 95228 Ashley subq tissue add-on - x5
--- NOTE | 2018-08-03 09:19 | PN.PCM_ITS ---
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 Current Visit: Yes Code(s): L98.492 - Non-pressure chronic ulcer of skin of other sites with fat layer exposed Comment: nonhealing ulcer right breast reconstruction (2) History of MRSA infection Status: Chronic Current Visit: Yes Code(s): Z86.14 - Personal history of Methicillin resistant Staphylococcus aureus infection (3) Infection of breast implant Status: Acute Current Visit: No Code(s): T85.79XA - Infection and inflammatory reaction due to other internal prosthetic devices, implants and grafts, initial encounter Comment: right breast reconstruction (4) Cellulitis of right breast Status: Acute Current Visit: No Code(s): N61.0 - Mastitis without abscess Type of Wound Date of Service: 08/03/18 Chief Complaint: Nonhealing MRSA ulcer right breast s/p removal of infected implant. History of Wound: Surgery 05/19/18 - Revision right breast reconstruction with incision and drainage and excisional debridement abscess with capsulectomy and removal infected breast implant. Surgery 05/05/18 - 1. Delayed right breast reconstruction with removal of saline tissue winery cellar hand with replacement cohesive gel implant (800 ml) and placement of Alloderm acellular dermal matrix graft inferolateral sling (132 cm2). 2. Revision reconstructed right breast with excision nonhealing ulcer and excess mastectomy skin scar contour deformity. Wound care - VAC. Operative culture - Citrobacter koseri. She was treated with Vancomycin perioperatively because of her history of MRSA. She was placed on Cefepime initially and then was changed to Ceftriaxone and has finished it without difficulty. The PICC has been pulled. Prealbumin from 05/20/18 was 12.6. She takes nutritional supplementation with protein to help the healing process. Today she denies any fever. Her appetite is good. Progress of Wound: Improved. - Physical Exam Vital Signs Temp Pulse Resp BP 98.2 F 101 H 16 117/70 08/03/18 08:23 08/03/18 08:23 08/03/18 08:23 08/03/18 08:23 General: Alert, Oriented x3, Cooperative HEENT: Atraumatic Oral: Moist Mucosa Lungs: Normal air movement Extremities: No clubbing, No edema Skin: Ulcer/ Wound - right breast/chest opened area Wound Measurements and Assessment WC - Nurse 1 - General Ulcer Measurement Start: 08/03/18 08:23 Freq: Status: Active Protocol: Activity Type Activity Date Activity User E-Sign Co-Sign Detail Recorded Client Recorded Date Recorded By Document 08/03/18 08:23 [id number] 08/03/18 08:24 08/03/18 08:23 Wound Center Nurse 1 [Ulcer Assessment] #3 R Breast -Combined with other wound No -Current Size (cm) - Length 6.5 -Current Size (cm) - Width 16 -Current Size (cm) - Depth 3.5 -Total Square Cm 104.0 -Photo Taken No -Epithelialization Small 1-33% -Tunneling No -Undermining/Tunneling Yes -Undermining/Tunneling Starts (O' 9 clock) -Undermining/Tunneling Ends (O'clock) 3 -Maximum Distance (cm) 3.5 -Circular Undermining No -Exudate Amt Small (1-33%) -Exudate Type Serosanguineous -Wound Margin Distinct, Outline Attached -Granulation Amt Large (67-100%) -Granulation Quality Red -Slough/Fibrin Yes -Necrosis Amt Small (1-33%) -Necrotic Tissue Type Adherent Slough -Texture (Yovana-wound Skin Appearance) Assessed Scarring -Moisture (Yovana-wound Skin Appearance No Abnormality ) Assessed -Color (Yovana-wound Skin Appearance) No Abnormality Assessed -Temperature (Yovana-wound Skin No Abnormality Appearance) (Pt Warm) -Tenderness on Palpation (Yovana-wound No Skin Appearance) -Ulcer Cleansing Rinsed/ Irrigated with Saline -Foul Odor after Cleansing No -Anesthetic Used 4% Lidocaine Solution WC - Nurse 2 - General Ulcer CM Notes Start: 08/03/18 08:23 Freq: Status: Active Protocol: Activity Type Activity Date Activity User E-Sign Co-Sign Detail Recorded Client Recorded Date Recorded By Document 08/03/18 08:41 [id number] 08/03/18 08:43 08/03/18 08:41 Wound Center Nurse 2 [Procedure/Treatment] -Time 08:42 -Correct Patient Yes -Correct Side, Site, Position Yes -Correct Procedure Yes -Procedure Performed Yes -Type of Procedure Debridement -Clinical Debridement Subcutaneous -Post Debridement Size (cm) - Length 6.3 -Post Debridement Size (cm) - Width 16.0 -Post Debridement Size (cm) - Depth 0.5 -Total Square Cm 100.80 -Wound/Ulcer Outcome Not Healed -Ulcer Cleansing Rinsed/ Irrigated with Saline -Foul Odor after Cleansing No -Bioengineered Tissue No -Bleeding Controlled with Pressure -Other tunnel at noon- --2.8cm -Treatment Response Procedure Tolerated Well [See Physician Procedure note for Specifics] Pain Scale: 0-10 Numeric [Pain] -Is Patient Pain Free? Yes Musculoskeletal: No Tenderness to Palpation of Joints or Extremities Neurological: Neuro grossly intact Psych/Mental Status: Normal Affect, Appropriate Debridement Note Post-Debridement Measurements/Treatment WC - Nurse 2 - General Ulcer CM Notes Start: 08/03/18 08:23 Freq: Status: Active Protocol: Activity Type Activity Date Activity User E-Sign Co-Sign Detail Recorded Client Recorded Date Recorded By Document 08/03/18 08:41 [email or web address] [id number] 08/03/18 08:43 ALEXANDRU 08/03/18 08:41 Wound Center Nurse 2 #3 R Breast -Time 08:42 -Correct Patient Yes -Correct Side, Site, Position Yes -Correct Procedure Yes -Procedure Performed Yes -Type of Procedure Debridement -Clinical Debridement Subcutaneous -Post Debridement Size (cm) - Length 6.3 -Post Debridement Size (cm) - Width 16.0 -Post Debridement Size (cm) - Depth 0.5 -Total Square Cm 100.80 -Wound/Ulcer Outcome Not Healed -Ulcer Cleansing Rinsed/ Irrigated with Saline -Foul Odor after Cleansing No -Bioengineered Tissue No -Bleeding Controlled with Pressure -Other tunnel at noon- --2.8cm -Treatment Response Procedure Tolerated Well Pain Scale: 0-10 Numeric Is Patient Pain Free? Yes Wound debrided: right breast/chest Laterality: Right Type of Debridement: Excisional debridement Anesthesia Used: 4% Lidocaine Solution Depth: Down to and including healthy tissue, in the subcutaneous layer Percentage of wound debrided: 100 Instrument Used: 5mm curette Tissue Removed: Subcutaneous tissue and slough Severity: Fat Layer Exposed Amount of bleeding with debridement: Mild Bleeding Controlled with: Pressure Assessment/Plan Active Problems (Last Reviewed 11/13/17 @ 09:21 by Tiff Abdi) Open wound of right breast with complication (Chronic) Non-pressure chronic ulcer of skin of other sites with fat layer exposed (Chronic) nonhealing ulcer right breast reconstruction History of MRSA infection (Chronic) Assessment: 1. Nonhealing MRSA ulcer right breast after removal of infected implant. 2. Infected right breast implant reconstruction with abscess. 3. History of recurrent infections bilateral breasts. 4. s/p completion mastectomy right breast. 5. Acquired absence right breast. 6. Disproportion reconstructed breasts. 7. Former smoker. 8. MRSA. Plan: Continue VAC dressing to be changed three times per week at 150 mmHg continuous suction. The Ceftriaxone for the Citrobacter koseri has been completed. Prealbumin from 05/20/18 was 12.6. Continue nutritional supplementation with protein to help the healing process. Renewed her Dilaudid for pain (30 tabs). Followup one week. Code Visit 111xxx-113xx: 85922 Ashley subq tissue 20 sq cm/< Add On Codes: 04375 Ashley subq tissue add-on - x5
[2018-08-10 09:33] VITALS: BP 128/89; PULSE 102; RESP 16; TEMP 37.4
--- NOTE | 2018-08-10 17:40 | PCM.WC.PN ---
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 History of Wound: Surgery 05/19/18 - Revision right breast reconstruction with incision and drainage and excisional debridement abscess with capsulectomy and removal infected breast implant. Surgery 05/05/18 - 1. Delayed right breast reconstruction with removal of saline tissue cake decorator with replacement cohesive gel implant (800 ml) and placement of Alloderm acellular dermal matrix graft inferolateral sling (132 cm2). 2. Revision reconstructed right breast with excision nonhealing ulcer and excess mastectomy skin scar contour deformity. Wound care - VAC. Operative culture - Citrobacter koseri. She was treated with Vancomycin perioperatively because of her history of MRSA. She was placed on Cefepime initially and then was changed to Ceftriaxone and has finished it without difficulty. Prealbumin from 05/20/18 was 12.6. She takes nutritional supplementation with protein to help the healing process. Today she denies any fever. Her appetite is good. Progress of Wound: Improved. - Physical Exam Vital Signs Temp Pulse Resp BP 99.3 F H 102 H 16 128/89 H 08/10/18 09:33 08/10/18 09:33 08/10/18 09:33 08/10/18 09:33 Wound Measurements and Assessment WC - Nurse 1 - General Ulcer Measurement Start: 08/03/18 08:23 Freq: Status: Active Protocol: Activity Type Activity Date Activity User E-Sign Co-Sign Detail Recorded Client Recorded Date Recorded By Document 08/10/18 09:33 [facility] [id number] 08/10/18 09:37 [facility] 08/10/18 09:33 Wound Center Nurse 1 [Ulcer Assessment] #3 R Breast -Combined with other wound No -Current Size (cm) - Length 6.1 -Current Size (cm) - Width 14.7 -Current Size (cm) - Depth 1.0 -Total Square Cm 89.67 -Date of Last Picture (Recall this 08/10/18 field) -Photo Taken Yes -Epithelialization Small 1-33% -Tunneling No -Undermining/Tunneling Yes -Undermining/Tunneling Starts (O' 10 clock) -Undermining/Tunneling Ends (O'clock) 1 -Maximum Distance (cm) 3.7 -Circular Undermining No -Exudate Amt Medium (34-66%) -Exudate Type Serosanguineous -Wound Margin Distinct, Outline Attached -Granulation Amt Large (67-100%) -Granulation Quality [place] -Slough/Fibrin No -Necrosis Amt None Present (0 %) -Texture (Yovana-wound Skin Appearance) Scarring -Moisture (Yovana-wound Skin Appearance Assessed ) -Color (Yovana-wound Skin Appearance) Assessed -Temperature (Yovana-wound Skin No Abnormality Appearance) (Pt Warm) -Tenderness on Palpation (Yovana-wound No Skin Appearance) -Ulcer Cleansing Rinsed/ Irrigated with Saline -Foul Odor after Cleansing No -Anesthetic Used 4% Lidocaine Solution - Nurse 2 - General Ulcer CM Notes Start: 08/03/18 08:23 Freq: Status: Active Protocol: Activity Type Activity Date Activity User E-Sign Co-Sign Detail Recorded Client Recorded Date Recorded By Document 08/10/18 09:46 [id number] 08/10/18 09:47 08/10/18 09:46 Wound Center Nurse 2 [Procedure/Treatment] -Time 09:47 -Correct Patient Yes -Correct Side, Site, Position Yes -Correct Procedure Yes -Procedure Performed Yes -Type of Procedure Debridement -Clinical Debridement Subcutaneous -Post Debridement Size (cm) - Length 6.2 -Post Debridement Size (cm) - Width 14.7 -Post Debridement Size (cm) - Depth 1.0 -Total Square Cm 91.14 -Wound/Ulcer Outcome Not Healed -Ulcer Cleansing Rinsed/ Irrigated with Saline -Foul Odor after Cleansing No -Bioengineered Tissue No -Bleeding Controlled with Pressure -Treatment Response Procedure Tolerated Well [See Physician Procedure note for Specifics] Pain Scale: 0-10 Numeric [Pain] -Is Patient Pain Free? Yes Debridement Note Post-Debridement Measurements/Treatment - Nurse 2 - General Ulcer CM Notes Start: 08/03/18 08:23 Freq: Status: Active Protocol: Activity Type Activity Date Activity User E-Sign Co-Sign Detail Recorded Client Recorded Date Recorded By Document 08/03/18 08:41 [id number] 08/03/18 08:43 Document 08/10/18 09:46 [id number] 08/10/18 09:47 08/03/18 08/10/18 08:41 09:46 Wound Center Nurse 2 #3 R Breast -Time 08:42 09:47 -Correct Patient Yes Yes -Correct Side, Site, Position Yes Yes -Correct Procedure Yes Yes -Procedure Performed Yes Yes -Type of Procedure Debridement Debridement -Clinical Debridement Subcutaneous Subcutaneous -Post Debridement Size (cm) - Length 6.3 6.2 -Post Debridement Size (cm) - Width 16.0 14.7 -Post Debridement Size (cm) - Depth 0.5 1.0 -Total Square Cm 100.80 91.14 -Wound/Ulcer Outcome Not Healed Not Healed -Ulcer Cleansing Rinsed/ Rinsed/ Irrigated with Irrigated with Saline Saline -Foul Odor after Cleansing No No -Bioengineered Tissue No No -Bleeding Controlled with Pressure Pressure -Other tunnel at noon- --2.8cm -Treatment Response Procedure Procedure Tolerated Well Tolerated Well Pain Scale: 0-10 Numeric Is Patient Pain Free? Yes Yes Wound debrided: #3 Right breast. Laterality: Right Wound Grade/Stage: 2. Type of Debridement: Excisional debridement Anesthesia Used: 4% Lidocaine Solution Depth: Down to and including healthy tissue, in the subcutaneous layer Percentage of wound debrided: 100 Instrument Used: 7mm curette Tissue Removed: subcutaneous tissue. Severity: Fat Layer Exposed Amount of bleeding with debridement: Mild Bleeding Controlled with: Pressure Patient tolerated procedure well Assessment/Plan Assessment: 1. Nonhealing MRSA ulcer right breast after removal of infected implant. 2. Infected right breast implant reconstruction with abscess. 3. History of recurrent infections bilateral breasts. 4. s/p completion mastectomy right breast. 5. Acquired absence right breast. 6. Disproportion reconstructed breasts. 7. Former smoker. 8. MRSA. Plan: Continue VAC dressing to be changed three times per week at 150 mmHg continuous suction. The Ceftriaxone for the Citrobacter koseri has been completed. Prealbumin from 05/20/18 was 12.6. Continue nutritional supplementation with protein to help the healing process. Renewed her Dilaudid for pain (10 tabs). Renewed her Valium for spasm (15 tabs). Followup one week to see [place] Nurse Practitioner. Followup 2 weeks to see me.
--- NOTE | 2018-08-12 17:40 | PN.PCM_ITS ---
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 History of Wound: Surgery 05/19/18 - Revision right breast reconstruction with incision and drainage and excisional debridement abscess with capsulectomy and removal infected breast implant. Surgery 05/05/18 - 1. Delayed right breast reconstruction with removal of saline tissue child care supervisor with replacement cohesive gel implant (800 ml) and placement of Alloderm acellular dermal matrix graft inferolateral sling (132 cm2). 2. Revision reconstructed right breast with excision nonhealing ulcer and excess mastectomy skin scar contour deformity. Wound care - VAC. Operative culture - Citrobacter koseri. She was treated with Vancomycin perioperatively because of her history of MRSA. She was placed on Cefepime initially and then was changed to Ceftriaxone and has finished it without difficulty. Prealbumin from 05/20/18 was 12.6. She takes nutritional supplementation with protein to help the healing process. Today she denies any fever. Her appetite is good. Progress of Wound: Improved. - Physical Exam Vital Signs Temp Pulse Resp BP 99.3 F H 102 H 16 128/89 H 08/10/18 09:33 08/10/18 09:33 08/10/18 09:33 08/10/18 09:33 Wound Measurements and Assessment WC - Nurse 1 - General Ulcer Measurement Start: 08/03/18 08:23 Freq: Status: Active Protocol: Activity Type Activity Date Activity User E-Sign Co-Sign Detail Recorded Client Recorded Date Recorded By Document 08/10/18 09:33 [facility] [id number] 08/10/18 09:37 [facility] 08/10/18 09:33 Wound Center Nurse 1 [Ulcer Assessment] #3 R Breast -Combined with other wound No -Current Size (cm) - Length 6.1 -Current Size (cm) - Width 14.7 -Current Size (cm) - Depth 1.0 -Total Square Cm 89.67 -Date of Last Picture (Recall this 08/10/18 field) -Photo Taken Yes -Epithelialization Small 1-33% -Tunneling No -Undermining/Tunneling Yes -Undermining/Tunneling Starts (O' 10 clock) -Undermining/Tunneling Ends (O'clock) 1 -Maximum Distance (cm) 3.7 -Circular Undermining No -Exudate Amt Medium (34-66%) -Exudate Type Serosanguineous -Wound Margin Distinct, Outline Attached -Granulation Amt Large (67-100%) -Granulation Quality [place] -Slough/Fibrin No -Necrosis Amt None Present (0 %) -Texture (Yovana-wound Skin Appearance) Scarring -Moisture (Yovana-wound Skin Appearance Assessed ) -Color (Yovana-wound Skin Appearance) Assessed -Temperature (Yovana-wound Skin No Abnormality Appearance) (Pt Warm) -Tenderness on Palpation (Yovana-wound No Skin Appearance) -Ulcer Cleansing Rinsed/ Irrigated with Saline -Foul Odor after Cleansing No -Anesthetic Used 4% Lidocaine Solution - Nurse 2 - General Ulcer CM Notes Start: 08/03/18 08:23 Freq: Status: Active Protocol: Activity Type Activity Date Activity User E-Sign Co-Sign Detail Recorded Client Recorded Date Recorded By Document 08/10/18 09:46 [id number] 08/10/18 09:47 08/10/18 09:46 Wound Center Nurse 2 [Procedure/Treatment] -Time 09:47 -Correct Patient Yes -Correct Side, Site, Position Yes -Correct Procedure Yes -Procedure Performed Yes -Type of Procedure Debridement -Clinical Debridement Subcutaneous -Post Debridement Size (cm) - Length 6.2 -Post Debridement Size (cm) - Width 14.7 -Post Debridement Size (cm) - Depth 1.0 -Total Square Cm 91.14 -Wound/Ulcer Outcome Not Healed -Ulcer Cleansing Rinsed/ Irrigated with Saline -Foul Odor after Cleansing No -Bioengineered Tissue No -Bleeding Controlled with Pressure -Treatment Response Procedure Tolerated Well [See Physician Procedure note for Specifics] Pain Scale: 0-10 Numeric [Pain] -Is Patient Pain Free? Yes Debridement Note Post-Debridement Measurements/Treatment - Nurse 2 - General Ulcer CM Notes Start: 08/03/18 08:23 Freq: Status: Active Protocol: Activity Type Activity Date Activity User E-Sign Co-Sign Detail Recorded Client Recorded Date Recorded By Document 08/03/18 08:41 [id number] 08/03/18 08:43 Document 08/10/18 09:46 [id number] 08/10/18 09:47 08/03/18 08/10/18 08:41 09:46 Wound Center Nurse 2 #3 R Breast -Time 08:42 09:47 -Correct Patient Yes Yes -Correct Side, Site, Position Yes Yes -Correct Procedure Yes Yes -Procedure Performed Yes Yes -Type of Procedure Debridement Debridement -Clinical Debridement Subcutaneous Subcutaneous -Post Debridement Size (cm) - Length 6.3 6.2 -Post Debridement Size (cm) - Width 16.0 14.7 -Post Debridement Size (cm) - Depth 0.5 1.0 -Total Square Cm 100.80 91.14 -Wound/Ulcer Outcome Not Healed Not Healed -Ulcer Cleansing Rinsed/ Rinsed/ Irrigated with Irrigated with Saline Saline -Foul Odor after Cleansing No No -Bioengineered Tissue No No -Bleeding Controlled with Pressure Pressure -Other tunnel at noon- --2.8cm -Treatment Response Procedure Procedure Tolerated Well Tolerated Well Pain Scale: 0-10 Numeric Is Patient Pain Free? Yes Yes Wound debrided: #3 Right breast. Laterality: Right Wound Grade/Stage: 2. Type of Debridement: Excisional debridement Anesthesia Used: 4% Lidocaine Solution Depth: Down to and including healthy tissue, in the subcutaneous layer Percentage of wound debrided: 100 Instrument Used: 7mm curette Tissue Removed: subcutaneous tissue. Severity: Fat Layer Exposed Amount of bleeding with debridement: Mild Bleeding Controlled with: Pressure Patient tolerated procedure well Assessment/Plan Assessment: 1. Nonhealing MRSA ulcer right breast after removal of infected implant. 2. Infected right breast implant reconstruction with abscess. 3. History of recurrent infections bilateral breasts. 4. s/p completion mastectomy right breast. 5. Acquired absence right breast. 6. Disproportion reconstructed breasts. 7. Former smoker. 8. MRSA. Plan: Continue VAC dressing to be changed three times per week at 150 mmHg continuous suction. The Ceftriaxone for the Citrobacter koseri has been completed. Prealbumin from 05/20/18 was 12.6. Continue nutritional supplementation with protein to help the healing process. Renewed her Dilaudid for pain (10 tabs). Renewed her Valium for spasm (15 tabs). Followup one week to see [place] Nurse Practitioner. Followup 2 weeks to see me.
[2018-08-17 08:13] VITALS: BP 139/76; PULSE 99; RESP 16; TEMP 37.6
--- NOTE | 2018-08-17 15:04 | PCM.WC.PN ---
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 Current Visit: Yes Code(s): L98.492 - Non-pressure chronic ulcer of skin of other sites with fat layer exposed Comment: nonhealing ulcer right breast reconstruction (2) History of MRSA infection Status: Chronic Current Visit: Yes Code(s): Z86.14 - Personal history of Methicillin resistant Staphylococcus aureus infection (3) Infection of breast implant Status: Acute Current Visit: No Code(s): T85.79XA - Infection and inflammatory reaction due to other internal prosthetic devices, implants and grafts, initial encounter Comment: right breast reconstruction (4) Cellulitis of right breast Status: Acute Current Visit: No Code(s): N61.0 - Mastitis without abscess Type of Wound Date of Service: 08/17/18 Chief Complaint: Nonhealing MRSA ulcer right breast s/p removal of infected implant. History of Wound: Surgery 05/19/18 - Revision right breast reconstruction with incision and drainage and excisional debridement abscess with capsulectomy and removal infected breast implant. Surgery 05/05/18 - 1. Delayed right breast reconstruction with removal of saline tissue flight superintendent with replacement cohesive gel implant (800 ml) and placement of Alloderm acellular dermal matrix graft inferolateral sling (132 cm2). 2. Revision reconstructed right breast with excision nonhealing ulcer and excess mastectomy skin scar contour deformity. Wound care - VAC. Operative culture - Citrobacter koseri. She was treated with Vancomycin perioperatively because of her history of MRSA. She was placed on Cefepime initially and then was changed to Ceftriaxone and has finished it without difficulty. Prealbumin from 05/20/18 was 12.6. She takes nutritional supplementation with protein to help the healing process. Today she denies any fever. Her appetite is good. Progress of Wound: Improved. - Physical Exam Vital Signs Temp Pulse Resp BP 99.6 F H 99 16 139/76 H 08/17/18 08:13 08/17/18 08:13 08/17/18 08:13 08/17/18 08:13 General: Alert, Oriented x3, Cooperative HEENT: Atraumatic Extremities: No edema, Capillary Refill Less than 3 Seconds Skin: Ulcer/ Wound - Right chest ulcer. Wound Measurements and Assessment WC - Nurse 1 - General Ulcer Measurement Start: 08/03/18 08:23 Freq: Status: Active Protocol: Activity Type Activity Date Activity User E-Sign Co-Sign Detail Recorded Client Recorded Date Recorded By Document 08/17/18 08:13 [place] [id number] 08/17/18 08:15 [place] 08/17/18 08:13 Wound Center Nurse 1 [Ulcer Assessment] #3 R Breast -Combined with other wound No -Current Size (cm) - Length 5.5 -Current Size (cm) - Width 15 -Current Size (cm) - Depth 0.5 -Total Square Cm 82.5 -Photo Taken No -Tunneling No -Undermining/Tunneling Yes -Undermining/Tunneling Starts (O' 11 clock) -Undermining/Tunneling Ends (O'clock) 1 -Maximum Distance (cm) 3.1 -Circular Undermining No -Exudate Amt Small (1-33%) -Exudate Type Serosanguineous -Wound Margin Flat & Intact -Granulation Amt Large (67-100%) -Granulation Quality [place] -Slough/Fibrin No -Texture (Yovana-wound Skin Appearance) Assessed -Moisture (Yovana-wound Skin Appearance Maceration ) -Color (Yovana-wound Skin Appearance) Assessed -Temperature (Yovana-wound Skin No Abnormality Appearance) (Pt Warm) -Tenderness on Palpation (Yovana-wound No Skin Appearance) -Ulcer Cleansing Rinsed/ Irrigated with Saline -Foul Odor after Cleansing No -Anesthetic Used 4% Lidocaine Solution WC - Nurse 2 - General Ulcer CM Notes Start: 08/03/18 08:23 Freq: Status: Active Protocol: Activity Type Activity Date Activity User E-Sign Co-Sign Detail Recorded Client Recorded Date Recorded By Document 08/17/18 08:55 [id number] 08/17/18 08:56 08/17/18 08:55 Wound Center Nurse 2 [Procedure/Treatment] -Time 08:55 -Correct Patient Yes -Correct Side, Site, Position Yes -Correct Procedure Yes -Procedure Performed Yes -Type of Procedure Debridement -Clinical Debridement Subcutaneous -Post Debridement Size (cm) - Length 6 -Post Debridement Size (cm) - Width 16 -Post Debridement Size (cm) - Depth 0.5 -Total Square Cm 96 -Wound/Ulcer Outcome Not Healed -Ulcer Cleansing Rinsed/ Irrigated with Saline -Foul Odor after Cleansing No -Bioengineered Tissue No -Bleeding Controlled with Pressure -Other tunnel---2.7cm at noon -Treatment Response Procedure Tolerated Well [See Physician Procedure note for Specifics] Pain Scale: 0-10 Numeric [Pain] -Is Patient Pain Free? Yes Musculoskeletal: No Tenderness to Palpation of Joints or Extremities, No Muscle Wasting Neurological: Neuro grossly intact Psych/Mental Status: Normal Affect, Appropriate Debridement Note Post-Debridement Measurements/Treatment WC - Nurse 2 - General Ulcer CM Notes Start: 08/03/18 08:23 Freq: Status: Active Protocol: Activity Type Activity Date Activity User E-Sign Co-Sign Detail Recorded Client Recorded Date Recorded By Document 08/03/18 08:41 [id number] 08/03/18 08:43 Document 08/10/18 09:46 [id number] 08/10/18 09:47 Document 08/17/18 08:55 [id number] 08/17/18 08:56 08/03/18 08/10/18 08/17/18 08:41 09:46 08:55 Wound Center Nurse 2 #3 R Breast -Time 08:42 09:47 08:55 -Correct Patient Yes Yes Yes -Correct Side, Site, Position Yes Yes Yes -Correct Procedure Yes Yes Yes -Procedure Performed Yes Yes Yes -Type of Procedure Debridement Debridement Debridement -Clinical Debridement Subcutaneous Subcutaneous Subcutaneous -Post Debridement Size (cm) - Length 6.3 6.2 6 -Post Debridement Size (cm) - Width 16.0 14.7 16 -Post Debridement Size (cm) - Depth 0.5 1.0 0.5 -Total Square Cm 100.80 91.14 96 -Wound/Ulcer Outcome Not Healed Not Healed Not Healed -Ulcer Cleansing Rinsed/ Rinsed/ Rinsed/ Irrigated with Irrigated with Irrigated with Saline Saline Saline -Foul Odor after Cleansing No No No -Bioengineered Tissue No No No -Bleeding Controlled with Pressure Pressure Pressure -Other tunnel at noon- tunnel---2.7cm --2.8cm at noon -Treatment Response Procedure Procedure Procedure Tolerated Well Tolerated Well Tolerated Well Pain Scale: 0-10 Numeric Is Patient Pain Free? Yes Yes Yes Wound debrided: Right chest Laterality: Right Type of Debridement: Excisional debridement Anesthesia Used: 4% Lidocaine Solution Depth: Down to and including healthy tissue, in the subcutaneous layer Percentage of wound debrided: 100 Instrument Used: 3mm curette Tissue Removed: Subcutaneous tissue and slough Severity: Fat Layer Exposed Amount of bleeding with debridement: None Bleeding Controlled with: Pressure Patient tolerated procedure well Assessment/Plan Active Problems (Last Reviewed 11/13/17 @ 09:21 by Tiff Abdi) Non-pressure chronic ulcer of skin of other sites with fat layer exposed (Chronic) nonhealing ulcer right breast reconstruction History of MRSA infection (Chronic) Assessment: 1. Nonhealing MRSA ulcer right breast after removal of infected implant. 2. Infected right breast implant reconstruction with abscess. 3. History of recurrent infections bilateral breasts. 4. s/p completion mastectomy right breast. 5. Acquired absence right breast. 6. Disproportion reconstructed breasts. 7. Former smoker. 8. MRSA. Plan: She is having a lot of discomfort with the wound VAC so she would like to take a week off. Will use aquacel-ag daily dressing changes. Cultured the ulcer today. The Ceftriaxone for the Citrobacter koseri has been completed. Prealbumin from 05/20/18 was 12.6. Continue nutritional supplementation with protein to help the healing process. Followup [address] Stevenson. Code Visit 111xxx-113xx: 37318 Ashley subq tissue 20 sq cm/< Add On Codes: [id number] Ashley subq tissue add-on - x5
--- NOTE | 2018-08-18 10:15 | PN.PCM_ITS ---
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 Current Visit: Yes Code(s): L98.492 - Non-pressure chronic ulcer of skin of other sites with fat layer exposed Comment: nonhealing ulcer right breast reconstruction (2) History of MRSA infection Status: Chronic Current Visit: Yes Code(s): Z86.14 - Personal history of Methicillin resistant Staphylococcus aureus infection (3) Infection of breast implant Status: Acute Current Visit: No Code(s): T85.79XA - Infection and inflammatory reaction due to other internal prosthetic devices, implants and grafts, initial encounter Comment: right breast reconstruction (4) Cellulitis of right breast Status: Acute Current Visit: No Code(s): N61.0 - Mastitis without abscess Type of Wound Date of Service: 08/17/18 Chief Complaint: Nonhealing MRSA ulcer right breast s/p removal of infected implant. History of Wound: Surgery 05/19/18 - Revision right breast reconstruction with incision and drainage and excisional debridement abscess with capsulectomy and removal infected breast implant. Surgery 05/05/18 - 1. Delayed right breast reconstruction with removal of saline tissue peoplesoft fscm developer with replacement cohesive gel implant (800 ml) and placement of Alloderm acellular dermal matrix graft inferolateral sling (132 cm2). 2. Revision reconstructed right breast with excision nonhealing ulcer and excess mastectomy skin scar contour deformity. Wound care - VAC. Operative culture - Citrobacter koseri. She was treated with Vancomycin perioperatively because of her history of MRSA. She was placed on Cefepime initially and then was changed to Ceftriaxone and has finished it without difficulty. Prealbumin from 05/20/18 was 12.6. She takes nutritional supplementation with protein to help the healing process. Today she denies any fever. Her appetite is good. Progress of Wound: Improved. - Physical Exam Vital Signs Temp Pulse Resp BP 99.6 F H 99 16 139/76 H 08/17/18 08:13 08/17/18 08:13 08/17/18 08:13 08/17/18 08:13 General: Alert, Oriented x3, Cooperative HEENT: Atraumatic Extremities: No edema, Capillary Refill Less than 3 Seconds Skin: Ulcer/ Wound - Right chest ulcer. Wound Measurements and Assessment WC - Nurse 1 - General Ulcer Measurement Start: 08/03/18 08:23 Freq: Status: Active Protocol: Activity Type Activity Date Activity User E-Sign Co-Sign Detail Recorded Client Recorded Date Recorded By Document 08/17/18 08:13 [place] [id number] 08/17/18 08:15 [place] 08/17/18 08:13 Wound Center Nurse 1 [Ulcer Assessment] #3 R Breast -Combined with other wound No -Current Size (cm) - Length 5.5 -Current Size (cm) - Width 15 -Current Size (cm) - Depth 0.5 -Total Square Cm 82.5 -Photo Taken No -Tunneling No -Undermining/Tunneling Yes -Undermining/Tunneling Starts (O' 11 clock) -Undermining/Tunneling Ends (O'clock) 1 -Maximum Distance (cm) 3.1 -Circular Undermining No -Exudate Amt Small (1-33%) -Exudate Type Serosanguineous -Wound Margin Flat & Intact -Granulation Amt Large (67-100%) -Granulation Quality [place] -Slough/Fibrin No -Texture (Yovana-wound Skin Appearance) Assessed -Moisture (Yovana-wound Skin Appearance Maceration ) -Color (Yovana-wound Skin Appearance) Assessed -Temperature (Yovana-wound Skin No Abnormality Appearance) (Pt Warm) -Tenderness on Palpation (Yovana-wound No Skin Appearance) -Ulcer Cleansing Rinsed/ Irrigated with Saline -Foul Odor after Cleansing No -Anesthetic Used 4% Lidocaine Solution WC - Nurse 2 - General Ulcer CM Notes Start: 08/03/18 08:23 Freq: Status: Active Protocol: Activity Type Activity Date Activity User E-Sign Co-Sign Detail Recorded Client Recorded Date Recorded By Document 08/17/18 08:55 [id number] 08/17/18 08:56 08/17/18 08:55 Wound Center Nurse 2 [Procedure/Treatment] -Time 08:55 -Correct Patient Yes -Correct Side, Site, Position Yes -Correct Procedure Yes -Procedure Performed Yes -Type of Procedure Debridement -Clinical Debridement Subcutaneous -Post Debridement Size (cm) - Length 6 -Post Debridement Size (cm) - Width 16 -Post Debridement Size (cm) - Depth 0.5 -Total Square Cm 96 -Wound/Ulcer Outcome Not Healed -Ulcer Cleansing Rinsed/ Irrigated with Saline -Foul Odor after Cleansing No -Bioengineered Tissue No -Bleeding Controlled with Pressure -Other tunnel---2.7cm at noon -Treatment Response Procedure Tolerated Well [See Physician Procedure note for Specifics] Pain Scale: 0-10 Numeric [Pain] -Is Patient Pain Free? Yes Musculoskeletal: No Tenderness to Palpation of Joints or Extremities, No Muscle Wasting Neurological: Neuro grossly intact Psych/Mental Status: Normal Affect, Appropriate Debridement Note Post-Debridement Measurements/Treatment WC - Nurse 2 - General Ulcer CM Notes Start: 08/03/18 08:23 Freq: Status: Active Protocol: Activity Type Activity Date Activity User E-Sign Co-Sign Detail Recorded Client Recorded Date Recorded By Document 08/03/18 08:41 [id number] 08/03/18 08:43 Document 08/10/18 09:46 [id number] 08/10/18 09:47 Document 08/17/18 08:55 [id number] 08/17/18 08:56 08/03/18 08/10/18 08/17/18 08:41 09:46 08:55 Wound Center Nurse 2 #3 R Breast -Time 08:42 09:47 08:55 -Correct Patient Yes Yes Yes -Correct Side, Site, Position Yes Yes Yes -Correct Procedure Yes Yes Yes -Procedure Performed Yes Yes Yes -Type of Procedure Debridement Debridement Debridement -Clinical Debridement Subcutaneous Subcutaneous Subcutaneous -Post Debridement Size (cm) - Length 6.3 6.2 6 -Post Debridement Size (cm) - Width 16.0 14.7 16 -Post Debridement Size (cm) - Depth 0.5 1.0 0.5 -Total Square Cm 100.80 91.14 96 -Wound/Ulcer Outcome Not Healed Not Healed Not Healed -Ulcer Cleansing Rinsed/ Rinsed/ Rinsed/ Irrigated with Irrigated with Irrigated with Saline Saline Saline -Foul Odor after Cleansing No No No -Bioengineered Tissue No No No -Bleeding Controlled with Pressure Pressure Pressure -Other tunnel at noon- tunnel---2.7cm --2.8cm at noon -Treatment Response Procedure Procedure Procedure Tolerated Well Tolerated Well Tolerated Well Pain Scale: 0-10 Numeric Is Patient Pain Free? Yes Yes Yes Wound debrided: Right chest Laterality: Right Type of Debridement: Excisional debridement Anesthesia Used: 4% Lidocaine Solution Depth: Down to and including healthy tissue, in the subcutaneous layer Percentage of wound debrided: 100 Instrument Used: 3mm curette Tissue Removed: Subcutaneous tissue and slough Severity: Fat Layer Exposed Amount of bleeding with debridement: None Bleeding Controlled with: Pressure Patient tolerated procedure well Assessment/Plan Active Problems (Last Reviewed 11/13/17 @ 09:21 by Tiff Abdi) Non-pressure chronic ulcer of skin of other sites with fat layer exposed (Chronic) nonhealing ulcer right breast reconstruction History of MRSA infection (Chronic) Assessment: 1. Nonhealing MRSA ulcer right breast after removal of infected implant. 2. Infected right breast implant reconstruction with abscess. 3. History of recurrent infections bilateral breasts. 4. s/p completion mastectomy right breast. 5. Acquired absence right breast. 6. Disproportion reconstructed breasts. 7. Former smoker. 8. MRSA. Plan: She is having a lot of discomfort with the wound VAC so she would like to take a week off. Will use aquacel-ag daily dressing changes. Cultured the ulcer today. The Ceftriaxone for the Citrobacter koseri has been completed. Prealbumin from 05/20/18 was 12.6. Continue nutritional supplementation with protein to help the healing process. Followup [address] Stevenson. Code Visit 111xxx-113xx: 53809 Ashley subq tissue 20 sq cm/< Add On Codes: [id number] Ashley subq tissue add-on - x5
[2018-08-24 08:31] VITALS: BP 154/80; PULSE 110; RESP 20; TEMP 36.6
--- NOTE | 2018-08-24 21:53 | PCM.WC.PN ---
Type of Wound Date of Service: 08/24/18 Chief Complaint: Nonhealing MRSA ulcer right breast s/p removal of infected implant. History of Wound: Surgery 05/19/18 - Revision right breast reconstruction with incision and drainage and excisional debridement abscess with capsulectomy and removal infected breast implant. Surgery 05/05/18 - 1. Delayed right breast reconstruction with removal of saline tissue geoscience laboratory technician with replacement cohesive gel implant (800 ml) and placement of Alloderm acellular dermal matrix graft inferolateral sling (132 cm2). 2. Revision reconstructed right breast with excision nonhealing ulcer and excess mastectomy skin scar contour deformity. Wound care - Aquacel Silver. She has a VAC holiday. Operative culture - Citrobacter koseri. She was treated with Vancomycin perioperatively because of her history of MRSA. She was placed on Cefepime initially and then was changed to Ceftriaxone and has finished it without difficulty. Prealbumin from 05/20/18 was 12.6. She takes nutritional supplementation with protein to help the healing process. Today she denies any fever. Her appetite is good. She had another culture done on 08/17/18. It showed Gram positive igor and Coag negative Staph. Progress of Wound: Improved. - Physical Exam Vital Signs Temp Pulse Resp BP 98 F 110 H 20 H 154/80 H 08/24/18 08:31 08/24/18 08:31 08/24/18 08:31 08/24/18 08:31 Wound Measurements and Assessment WC - Nurse 1 - General Ulcer Measurement Start: 08/03/18 08:23 Freq: Status: Active Protocol: Activity Type Activity Date Activity User E-Sign Co-Sign Detail Recorded Client Recorded Date Recorded By Document 08/24/18 08:31 DL [id number] 08/24/18 08:37 DL 08/24/18 08:31 Wound Center Nurse 1 [Ulcer Assessment] #3 R Breast -Current Size (cm) - Length 5 -Current Size (cm) - Width 14 -Current Size (cm) - Depth 1 -Total Square Cm 70 -Photo Taken No -Undermining/Tunneling Starts (O' 10 clock) -Undermining/Tunneling Ends (O'clock) 30 -Maximum Distance (cm) 2.4 -Exudate Amt Medium (34-66%) -Exudate Type Serosanguineous -Wound Margin Thickened & Rolled Under -Granulation Amt Large (67-100%) -Granulation Quality Red -Necrosis Amt Small (1-33%) -Necrotic Tissue Type Adherent Slough -Structure Exposed N/A -Texture (Yovana-wound Skin Appearance) Scarring -Moisture (Yovana-wound Skin Appearance No Abnormality ) -Color (Yovana-wound Skin Appearance) No Abnormality -Temperature (Yovana-wound Skin No Abnormality Appearance) (Pt Warm) -Ulcer Cleansing Rinsed/ Irrigated with Saline -Foul Odor after Cleansing No -Anesthetic Used 4% Lidocaine Solution - Nurse 2 - General Ulcer CM Notes Start: 08/03/18 08:23 Freq: Status: Active Protocol: Activity Type Activity Date Activity User E-Sign Co-Sign Detail Recorded Client Recorded Date Recorded By Document 08/24/18 09:09 [id number] 08/24/18 09:10 08/24/18 09:09 Wound Center Nurse 2 [Procedure/Treatment] -Time 09:09 -Correct Patient Yes -Correct Side, Site, Position Yes -Correct Procedure Yes -Procedure Performed Yes -Type of Procedure Debridement -Clinical Debridement Subcutaneous -Post Debridement Size (cm) - Length 5 -Post Debridement Size (cm) - Width 14.1 -Post Debridement Size (cm) - Depth 1.0 -Total Square Cm 70.5 -Wound/Ulcer Outcome Not Healed -Ulcer Cleansing Rinsed/ Irrigated with Saline -Foul Odor after Cleansing No -Bioengineered Tissue No -Bleeding Controlled with Pressure -Treatment Response Procedure Tolerated Well [See Physician Procedure note for Specifics] Pain Scale: 0-10 Numeric [Pain] -Is Patient Pain Free? Yes Debridement Note Post-Debridement Measurements/Treatment - Nurse 2 - General Ulcer CM Notes Start: 08/03/18 08:23 Freq: Status: Active Protocol: Activity Type Activity Date Activity User E-Sign Co-Sign Detail Recorded Client Recorded Date Recorded By Document 08/03/18 08:41 [id number] 08/03/18 08:43 Document 08/10/18 09:46 [id number] 08/10/18 09:47 Document 08/17/18 08:55 [id number] 08/17/18 08:56 Document 08/24/18 09:09 [id number] 08/24/18 09:10 08/03/18 08/10/18 08/17/18 08:41 09:46 08:55 Wound Center Nurse 2 #3 R Breast -Time 08:42 09:47 08:55 -Correct Patient Yes Yes Yes -Correct Side, Site, Position Yes Yes Yes -Correct Procedure Yes Yes Yes -Procedure Performed Yes Yes Yes -Type of Procedure Debridement Debridement Debridement -Clinical Debridement Subcutaneous Subcutaneous Subcutaneous -Post Debridement Size (cm) - Length 6.3 6.2 6 -Post Debridement Size (cm) - Width 16.0 14.7 16 -Post Debridement Size (cm) - Depth 0.5 1.0 0.5 -Total Square Cm 100.80 91.14 96 -Wound/Ulcer Outcome Not Healed Not Healed Not Healed -Ulcer Cleansing Rinsed/ Rinsed/ Rinsed/ Irrigated with Irrigated with Irrigated with Saline Saline Saline -Foul Odor after Cleansing No No No -Bioengineered Tissue No No No -Bleeding Controlled with Pressure Pressure Pressure -Other tunnel at noon- tunnel---2.7cm --2.8cm at noon -Treatment Response Procedure Procedure Procedure Tolerated Well Tolerated Well Tolerated Well Pain Scale: 0-10 Numeric Is Patient Pain Free? Yes Yes Yes 08/24/18 09:09 Wound Center Nurse 2 #3 R Breast -Time 09:09 -Correct Patient Yes -Correct Side, Site, Position Yes -Correct Procedure Yes -Procedure Performed Yes -Type of Procedure Debridement -Clinical Debridement Subcutaneous -Post Debridement Size (cm) - Length 5 -Post Debridement Size (cm) - Width 14.1 -Post Debridement Size (cm) - Depth 1.0 -Total Square Cm 70.5 -Wound/Ulcer Outcome Not Healed -Ulcer Cleansing Rinsed/ Irrigated with Saline -Foul Odor after Cleansing No -Bioengineered Tissue No -Bleeding Controlled with Pressure -Other -Treatment Response Procedure Tolerated Well Pain Scale: 0-10 Numeric Is Patient Pain Free? Yes Wound debrided: #3 Right breast. Laterality: Right Wound Grade/Stage: 2. Type of Debridement: Excisional debridement Anesthesia Used: 4% Lidocaine Solution Depth: Down to and including healthy tissue, in the subcutaneous layer Percentage of wound debrided: 100 Instrument Used: 7mm curette Tissue Removed: subcutaneous tissue. Severity: Fat Layer Exposed Amount of bleeding with debridement: Mild Bleeding Controlled with: Pressure Patient tolerated procedure well Assessment/Plan Assessment: 1. Nonhealing MRSA ulcer right breast after removal of infected implant. 2. Infected right breast implant reconstruction with abscess. 3. History of recurrent infections bilateral breasts. 4. s/p completion mastectomy right breast. 5. Acquired absence right breast. 6. Disproportion reconstructed breasts. 7. Former smoker. 8. MRSA. Plan: Continue Aquacel Silver dressing changes daily. Will stop the VAC. The Ceftriaxone for the Citrobacter koseri has been completed. She had another wound culture done on 08/17/18. It showed Gram positive igor and Coag negative Staph. Prealbumin from 05/20/18 was 12.6. Continue nutritional supplementation with protein to help the healing process. Followup one week to see [facility] Nurse Practitioner. Her surgery is scheduled for for further operative debridement with complex secondary wound closure versus skin grafting. Patient was informed of the risks and complications of the procedure including alternatives to surgery. These were discussed with her personally. She voices understanding and wishes to proceed. She will be treated perioperatively with Vancomycin. Followup to see me after her surgery.
== END 2018-08-28 23:59 ==
LOC: WC 08:45
PROVIDERS: Family Provider Student in an Organized Health Care Education/Training Program; PCP Student in an Organized Health Care Education/Training Program; Referring Provider Surgery; Visit Provider Surgery
DX: T85.79XA Infection and inflammatory reaction due to other internal prosthetic devices, implants and grafts, initial encounter (principal); Y83.1 Surgical operation with implant of artificial internal device as the cause of abnormal reaction of the patient, or of later complication, without mention of misadventure at the time of the procedure; Z86.14 Personal history of Methicillin resistant Staphylococcus aureus infection; L98.492 Non-pressure chronic ulcer of skin of other sites with fat layer exposed; N61.0 Mastitis without abscess; Z87.891 Personal history of nicotine dependence
CPT/HCPCS: 11042; 11045; 87070; 87205; 97606

== ENCOUNTER → 2018-08-28 11:41 | Outpatient (CLI) | payer MEDICARE, MEDICAID, SELFPAY ==
[2018-08-28 14:48] LABS: T4 Free Direct 1.16 ng/dL (0.76-1.46); Thyroid Stim Hormone (TSH) 1.72 uIU/mL (0.358-3.74)
--- OUTSIDE RECORDS SUMMARY | 2018-10-23 10:42 | XMS RPT_ITS ---
:1970 Author Organization OHIP Support Name Relationship Address Phone CHAMPION, SANTHOSH Unavailable Unavailable + [place] [address] D Unavailable Unavailable Unavailable CHAMPION, SANTHOSH Unavailable Unavailable + [place] [address] D Unavailable Unavailable Unavailable CHAMPION, SANTHOSH Unavailable Unavailable + [place] [address] D Unavailable Unavailable Unavailable CHAMPION, SANTHOSH Unavailable Unavailable + [place] [address] D Unavailable Unavailable Unavailable CHAMPION, SANTHOSH Unavailable Unavailable + [place] [address] UE Unavailable Unavailable Unavailable CHAMPION, SANTHOSH Unavailable Unavailable + [place] [address] UE Unavailable Unavailable Unavailable CHAMPION, SANTHOSH Unavailable Unavailable + [place] [address] UE Unavailable Unavailable Unavailable CHAMPION, SANTHOSH Unavailable Unavailable + [place] [address] UE Unavailable Unavailable Unavailable CHAMPION, SANTHOSH Unavailable Unavailable + [place] [address] UE Unavailable Unavailable Unavailable CHAMPION, SANTHOSH Unavailable . + [place] [address] UE Unavailable Unavailable Unavailable CHAMPION, SANTHOSH Unavailable . + [place] [address] UE Unavailable Unavailable Unavailable CHAMPION, SANTHOSH Unavailable . + [place] [address] UE Unavailable Unavailable Unavailable CHAMPION, SANTHOSH Unavailable . + [place] [address] UE Unavailable Unavailable Unavailable CHAMPION, SANTHOSH Unavailable . + [place] [address] UE Unavailable Unavailable Unavailable CHAMPION, SANTHOSH Unavailable . + [place] [address] UE Unavailable Unavailable Unavailable CHAMPION, SANTHOSH Unavailable . + [place] [address] UE Unavailable Unavailable Unavailable CHAMPION, SANTHOSH Unavailable . + [place] [address] UE Unavailable Unavailable Unavailable CHAMPION, SANTHOSH Unavailable . + [place] [address] UE Unavailable Unavailable Unavailable CHAMPION, SANTHOSH Unavailable Unavailable + [place] [address] UE Unavailable Unavailable Unavailable CHAMPION, SANTHOSH Unavailable . + [place] [address] UE Unavailable Unavailable Unavailable CHAMPION, SANTHOSH Unavailable . + [place] [address] UE Unavailable Unavailable Unavailable CHAMPION, SANTHOSH Unavailable . + [place] [address] UE Unavailable Unavailable Unavailable CHAMPION, SANTHOSH Unavailable . + [place] [address] UE Unavailable Unavailable Unavailable CHAMPION, SANTHOSH Unavailable Unavailable + UE Unavailable Unavailable Unavailable CHAMPION, SANTHOSH Unavailable Unavailable + UE Unavailable Unavailable Unavailable CHAMPION, SANTHOSH Unavailable . + [place] [address] UE Unavailable Unavailable Unavailable CHAMPION, SANTHOSH Unavailable Unavailable + UE Unavailable Unavailable Unavailable CHAMPION, SANTHOSH Unavailable Unavailable + UE Unavailable Unavailable Unavailable CHAMPION, SANTHOSH Unavailable Unavailable + UE Unavailable Unavailable Unavailable CHAMPION, SANTHOSH Unavailable . + ., [place] . UE Unavailable Unavailable Unavailable CHAMPION, SANTHOSH Unavailable . + ., [place] . UE Unavailable Unavailable Unavailable CHAMPION, SANTHOSH Unavailable [address] [place] [address] + [place] [address] UE Unavailable Unavailable Unavailable CHAMPION, SANTHOSH Unavailable [address] [place] [address] + [place] [address] UE Unavailable Unavailable Unavailable CHAMPION, SANTHOSH Unavailable [address] [place] [address] + [place] [address] UE Unavailable Unavailable Unavailable CHAMPION, SANTHOSH Unavailable Unavailable + UE Unavailable Unavailable Unavailable CHAMPION, SANTHOSH Unavailable [facility] [address] + [place] [address] UE Unavailable Unavailable Unavailable CHAMPION, SANTHOSH Unavailable [address] [place] [address] DR + [place] [address] UE Unavailable Unavailable Unavailable CHAMPION, SANTHOSH Unavailable [address] [place] [address] DR [phone] [place] [address] UE Unavailable Unavailable Unavailable CHAMPION, SANTHOSH Unavailable [address] [place] [address] DR [phone] [place] [address] UE Unavailable Unavailable Unavailable CHAMPION, SANTHOSH Unavailable [address] [place] [address] DR [phone] [place] [address] UE Unavailable Unavailable Unavailable CHAMPION, SANTHOSH Unavailable [address] [place] [address] DR [phone] [place] [address] UE Unavailable Unavailable Unavailable CHAMPION, SANTHOSH Unavailable [address] [place] [address] DR [phone] [place] [address] UE Unavailable Unavailable Unavailable CHAMPION, SANTHOSH Unavailable [address] [place] [address] DR [phone] [place] [address] UE Unavailable Unavailable Unavailable CHAMPION, SANTHOSH Unavailable [address] [place] [address] DR [phone] [place] [address] UE Unavailable Unavailable Unavailable CHAMPION, SANTHOSH Unavailable [address] [place] [address] DR [phone] [place] [address] UE Unavailable Unavailable Unavailable CHAMPION, SANTHOSH Unavailable [address] [place] [address] DR [phone] [place] [address] UE Unavailable Unavailable Unavailable CHAMPION, SANTHOSH Unavailable [address] [place] [address] DR [phone] [place] [address] UE Unavailable Unavailable Unavailable CHAMPION, SANTHOSH Unavailable [address] [place] [address] DR [phone] [place] [address] UE Unavailable Unavailable Unavailable CHAMPION, SANTHOSH Unavailable [address] [place] [address] DR [phone] [place] [address] UE Unavailable Unavailable Unavailable CHAMPION, SANTHOSH Unavailable [address] [place] [address] DR [phone] [place] [address] UE Unavailable Unavailable Unavailable CHAMPION, SANTHOSH Unavailable [address] [place] [address] DR [phone] [place] [address] UE Unavailable Unavailable Unavailable CHAMPION, SANTHOSH Unavailable [address] [place] [address] DR [phone] [place] [address] UE Unavailable Unavailable Unavailable CHAMPION, SANTHOSH Unavailable [address] [place] [address] DR [phone] [place] [address] UE Unavailable Unavailable Unavailable CHAMPION, SANTHOSH Unavailable [address] [place] [address] DR [phone] [place] [address] UE Unavailable Unavailable Unavailable CHAMPION, SANTHOSH Unavailable [address] [place] [address] DR [phone] [place] [address] HOSPICE Unavailable [address] + [place] [address] UE Unavailable Unavailable Unavailable CHAMPION, SANTHOSH Unavailable [address] [place] [address] DR [phone] [place] [address] HOSPICE Unavailable [address] + [place] [address] UE Unavailable Unavailable Unavailable CHAMPION, SANTHOSH Unavailable [address] [place] [address] DR [phone] [place] [address] UE Unavailable Unavailable Unavailable CHAMPION, SANTHOSH Unavailable [address] [place] [address] DR [phone] [place] [address] H[address] Unavailable [address] + [place] [address] KYLEIGH STORY Unavailable [address] + [place] [address] CHAMPION, SANTHOSH Unavailable [address] [place] [address] DR + [place] [address] HOSPICE Unavailable [address] + [place] [address] KYLEIGH STORY Unavailable [address] + [place] [address] CHAMPION, SANTHOSH Unavailable [address] [place] [address] DR + [place] [address] HOSPICE Unavailable [address] + [place] [address] JEZ, KYLEIGH Unavailable [address] + [place] [address] CHAMPELVIA SANTHOSH Unavailable [address] + [place] [address] HOSPICE Unavailable [address] + [place] [address] EJZ, KYLEIGH Unavailable [address] + [place] [address] CHAMPELVIA, SANTHOSH Unavailable [address] + [place] [address] HOSPICE Unavailable [address] + [place] [address] JEZ, KYLEIGH Unavailable [address] + [place] [address] Care Team Providers Name Role Phone EDUARDO PERKINS Attending Unavailable PERKINS, EDUARDO L Referring Unavailable PERKINS, EDUARDO L Attending Unavailable RHONA CASTRO ([employer]) Attending Unavailable Sean Stevenson Admitting Unavailable SlabySean Attending Unavailable SlabSean roberts Referring Unavailable Perkins, Eduardo Primary Care Unavailable SlabySean Consulting Unavailable SlabySean Admitting Unavailable SlabSean roberts Attending Unavailable Sean Stevenson Referring Unavailable Perkins, Eduardo Primary Care Unavailable Sean Stevenson Consulting Unavailable Sean Stevenson Attending Unavailable Perkins, Eduardo Primary Care Unavailable SlabSean roberts Attending Unavailable Perkins, Eduardo Referring Unavailable Perkins, Eduardo Primary Care Unavailable Tiff Abdi Attending Unavailable SlabySean Attending Unavailable Perkins, Eduardo Referring Unavailable Perkins, Eduardo Primary Care Unavailable SlabSean roberts Attending Unavailable SlabySean Referring Unavailable Perkins, Eduardo Primary Care Unavailable SlabSean roberts Admitting Unavailable SlabSean roberts Attending Unavailable SlabySean Referring Unavailable Perkins, Eduardo Primary Care Unavailable SlabSean roberts Consulting Unavailable Sean Stevenson Attending Unavailable SlabSean roberts Referring Unavailable Perkins, Eduardo Primary Care Unavailable SlabSean roberts Attending Unavailable Perkins, Eduardo Referring Unavailable Perkins, Eduardo Primary Care Unavailable SlabSean roberts Attending Unavailable SlabSean roberts Referring Unavailable Perkins, Eduardo Primary Care Unavailable Sean Stevenson Attending Unavailable SlabSean roberts Referring Unavailable Perkins, Eduardo Primary Care Unavailable SlabSean roberts Attending Unavailable SlabSean roberts Referring Unavailable Perkins, Eduardo Primary Care Unavailable Slabarmando, Sean Attending Unavailable Perkins, Eduardo Referring Unavailable Perkins, Eduardo Primary Care Unavailable Slaby, Sean Admitting Unavailable Slaby, Sean Attending Unavailable Slaby, Sean Referring Unavailable Perkins, Eduardo Primary Care Unavailable Slaby, Sean Consulting Unavailable Slaby, Sean Attending Unavailable Perkins, Eduardo Referring Unavailable Perkins, Eduardo Primary Care Unavailable Perkins, Eduardo Primary Care Unavailable Brian Baxter Attending Unavailable Slaby, Sean Attending Unavailable Perkins, Eduardo Referring Unavailable Perkins, Eduardo Primary Care Unavailable Slaby, Sean Attending Unavailable Perkins, Eduardo Referring Unavailable Perkins, Eduardo Primary Care Unavailable Slaby, Sean Attending Unavailable Slaby, Sean Referring Unavailable Perkins, Eduardo Primary Care Unavailable Slaby, Sean Attending Unavailable Slaby, Sean Referring Unavailable Perkins, Eduardo Primary Care Unavailable Slaby, Sean Attending Unavailable Slaby, Sean Referring Unavailable Perkins, Eduardo Primary Care Unavailable Slaby, Sean Attending Unavailable Perkins, Eduardo Referring Unavailable Perkins, Eduardo Primary Care Unavailable Slaby, Sean Attending Unavailable Perkins, Eduardo Referring Unavailable Perkins, Eduardo Primary Care Unavailable Slaby, Sean Attending Unavailable Perkins, Eduardo Referring Unavailable Perkins, Eduardo Primary Care Unavailable Slaby, Sean Attending Unavailable Perkins, Eduardo Referring Unavailable Perkins, Eduardo Primary Care Unavailable Slaby, Sean Attending Unavailable Slaby, Sean Referring Unavailable Perkins, Eduardo Primary Care Unavailable Slaby, Sean Attending Unavailable Slaby, Sean Referring Unavailable Perkins, Eduardo Primary Care Unavailable Perkins, Eduardo Attending Unavailable Perkins, Eduardo Referring Unavailable Perkins, Eduardo Primary Care Unavailable Slaby, Sean Attending Unavailable Slaby, Sean Referring Unavailable Perkins, Eduardo Primary Care Unavailable Slaby, Sean Admitting Unavailable Slaby, Sean Admitting Unavailable Slaby, Sean Attending Unavailable Slaby, Sean Referring Unavailable Perkins, Eduardo Primary Care Unavailable Slaby, Sean Consulting Unavailable Slaby, Sean Attending Unavailable Slaby, Sean Referring Unavailable Perkins, Eduardo Primary Care Unavailable Slaby, Sean Referring Unavailable Perkins, Eduardo Primary Care Unavailable GabriellaMatty Attending Unavailable Slaby, Sean Attending Unavailable Perkins, Eduardo Referring Unavailable Perkins, Eduardo Primary Care Unavailable Slaby, Sean Attending Unavailable Perkins, Eduardo Referring Unavailable Perkins, Eduardo Primary Care Unavailable Slaby, Sean Attending Unavailable Slaby, Sean Referring Unavailable Perkins, Eduardo Primary Care Unavailable Slaby, Sean Admitting Unavailable Gabriella, Matty Consulting Unavailable KotsonisAlexandre F Consulting Unavailable Slaby, Sean Admitting Unavailable Slaby, Sean Attending Unavailable Slaby, Sean Referring Unavailable Perkins, Eduardo Primary Care Unavailable Slaby, Sean Consulting Unavailable Slaby, Sean Attending Unavailable Slaby, Sean Referring Unavailable Perkins, Eduardo Primary Care Unavailable Slaby, Sean Consulting Unavailable Slaby, Sean Admitting Unavailable KotsoniAlexandre patel Attending Unavailable Slaby, Sean Referring Unavailable Prekins, Eduardo Primary Care Unavailable Gabriella, Matty Consulting Unavailable Kotsonis, Alexandre F Consulting Unavailable Slaby, Sean Consulting Unavailable Slaby, Sean Admitting Unavailable Alexandre Ivan Attending Unavailable Slaby, Sean Referring Unavailable Perkins, Eduardo Primary Care Unavailable Gabriella, Matty Consulting Unavailable Kotsonis, Alexandre F Consulting Unavailable Slaby, Sean Consulting Unavailable Slaby, Sean Admitting Unavailable Slaby, Sean Attending Unavailable Slaby, Sean Referring Unavailable Perkins, Vernon Primary Care Unavailable Gabriella, Matty Consulting Unavailable Kotsoniamanda, Alexandre F Consulting Unavailable Slaby, Sean Consulting Unavailable Slaby, Sean Referring Unavailable Perkins, Eduardo Primary Care Unavailable Slaby, Sean Attending Unavailable Slaby, Sean Attending Unavailable Perkins, Eduardo Referring Unavailable Perkins, Eduardo Primary Care Unavailable Slaby, Sean Attending Unavailable Perkins, Vernon Primary Care Unavailable Slaby, Sean Attending Unavailable Slaby, Sean Referring Unavailable Perkins, Eduardo Primary Care Unavailable Slaby, Sean Attending Unavailable Perkins, Eduardo Primary Care Unavailable Naresh Huma E Attending Unavailable Perkins, Eduardo Primary Care Unavailable Slaby, Sean Consulting Unavailable Slaby, Sean Attending Unavailable Slaby, Sean Referring Unavailable Perkins, Eduardo Primary Care Unavailable Slaby, Sean Attending Unavailable Perkins, Eduardo Referring Unavailable Slaby, Sean Attending Unavailable Perkins, Eduardo Primary Care Unavailable Slaby, Sean Consulting Unavailable Slaby, Sean Attending Unavailable Perkins, Eduardo Primary Care Unavailable Slaby, Sean Consulting Unavailable Naresh, Huma E Attending Unavailable Perkins, Eduardo Primary Care Unavailable Slaby, Sean Consulting Unavailable Slaby, Sean Attending Unavailable Perkins, Eduardo Primary Care Unavailable Slaby, Sean Consulting Unavailable Slaby, Sean Attending Unavailable Perkins, Eduardo Primary Care Unavailable Slaby, Sean Referring Unavailable Naresh, Huma E Consulting Unavailable Slaby, Sean Attending Unavailable Perkins, Eduardo Primary Care Unavailable Slaby, Sean Consulting Unavailable Naresh, Huma E Attending Unavailable Perkins, Eduardo Primary Care Unavailable Slaby, Sean Consulting Unavailable Slaby, Sean Attending Unavailable Perkins, Eduardo Primary Care Unavailable Slaby, Sean Consulting Unavailable Naresh, Huma E Attending Unavailable Slaby, Sean Referring Unavailable Perkins, Eduardo Primary Care Unavailable Naresh, Huma E Consulting Unavailable Slaby, Sean Consulting Unavailable Perkins, Eduardo Attending Unavailable Perkins, Eduardo Primary Care Unavailable Perkins, Eduardo Referring Unavailable Slaby, Sean Attending Unavailable Slaby, Sean Referring Unavailable Perkins, Eduardo Primary Care Unavailable Naresh, Huma E Consulting Unavailable Slaby, Sean Attending Unavailable Slaby, Sean Referring Unavailable Perkins, Eduardo Primary Care Unavailable Naresh, Huma E Consulting Unavailable Slaby, Sean Consulting Unavailable Slaby, Sean Attending Unavailable Slaby, Sean Referring Unavailable Perkins, Eduardo Primary Care Unavailable Slaby, Sean Admitting Unavailable PROBLEMS PROBLEMS DATE TYPE CONDITION / CODE ATTENDING STATUS SOURCE 09/14/2018 Unknown N61.1 - Abscess of Graham Sean Active [place] the breast and Community nipple / Hospital N61.1(ICD-10) Repository 09/14/2018 Unknown T81.4XXA - Infection GrahamSean Active [facility] following a Community procedure, initial Hospital encounter / Repository T81.4XXA(ICD-10) 09/14/2018 Unknown Z45.2 - Encounter Sean Stevenson Active [place] for adjustment and Community management of Hospital vascular access Repository device / Z45.2(ICD-10) 09/14/2018 Unknown Z51.81 - Encounter RamaSean roberts Active [facility] for therapeutic drug Community level monitoring / Hospital Z51.81(ICD-10) Repository 09/14/2018 Unknown L76.82 - Other Sean Stevenson Active [place] postprocedural Community complications of Hospital skin and Repository subcutaneous tissue / L76.82(ICD-10) 09/11/2018 Unknown G89.18 - Other acute Sean Stevenson Active [facility] postprocedural pain Community / G89.18(ICD-10) Hospital Repository 07/12/2018 Unknown Z90.11 - Acquired RamaSean roberts Active [place] absence of right Community breast and nipple / Hospital Z90.11(ICD-10) Repository 07/12/2018 Unknown Z86.14 - Personal Sean Stevenson Active [place] history of Community Methicillin Hospital resistant Repository Staphylococcus aureus infection / Z86.14(ICD-10) 07/12/2018 Unknown N65.1 - Sean Stevenson Active [facility] Disproportion of Community reconstructed breast Hospital / N65.1(ICD-10) Repository 07/12/2018 Unknown L98.492 - Sean Stevenson Active [place] 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 Repository layer exposed / L98.492(ICD-10) 07/12/2018 Unknown N65.0 - Deformity of Sean Stevenson Active [facility] reconstructed breast Community / N65.0(ICD-10) Hospital Repository 07/12/2018 Unknown T85.79XA - Infection Graham Sean Burton [facility] and inflammatory Community reaction due to Hospital other internal Repository prosthetic devices, implants and grafts, initial encounter / T85.79XA(ICD-10) 07/12/2018 Unknown Z98.86 - Personal Sean Stevenson Active [facility] history of breast Community implant removal / Hospital Z98.86(ICD-10) Repository 11/15/2015 Active Hypothyroidism, NA Active [place] unspecified / Clinic Main E03.9(ICD-10) [place] Repository 09/26/2017 Active Other fatigue / NA Active [place] R53.83(ICD-10) Clinic Main [place] Repository PROCEDURES PROCEDURES No Procedure Records FoundRESULTS RESULTS OPERATIVE REPORT Observed: 09/14/2018 Status: F Source: [place] 5:27 PM [facility] REPOSITORY [facility] Medical Records Department [address] [place] [id number] Operative Report 09/08/[id number] MR#: [id number] Acct: [id number] Name: ROBLES CARRASQUILLO Rep #: [id number] : 1970 48 From: Sean Stevenson MD PCP: Eduardo Rubio DO Status: DIS IN Y Location: [facility] [id number] Report of Operation Date of Procedure: 09/08/18 Pre-Operative Diagnosis: 1. Nonhealing ulcer right breast reconstruction. 2. Recurrent infections bilateral breasts. 3. Bilateral macromastia s/p breast reduction mammaplasty. 4. s/p completion mastectomy right breast. 5. Acquired absence right breast. 6. Disproportion reconstructed breasts. 7. Former smoker. 8. MRSA. 9. Deformity right breast reconstruction s/p removal of infected breast implant. Post-Operative Diagnosis: Same. Surgery/Procedure Performed:: Surgical preparation right breast reconstruction with excisional debridement nonhealing MRSA ulcer and complex secondary wound closure. Description of Surgical Findings:: 48 year old woman comes in today for further evaluation breast reconstruction after undergoing completion mastectomy right breast in 04/14. She has a history of recurrent breast infections bilaterally. Most recently she had developed MRSA in the right breast. She has had multiple operative drainage procedures both before and after her bilateral breast reduction mammaplasty in 10/15. She denies fever at present. She started the breast reconstruction process on 12/16/17 where she underwent 1st stage delayed right breast reconstruction with placement of submuscular saline tissue bond runner (800 ml) and placement DermACELL decellularized dermis graft (160 cm2). She tolerated the tissue expansion. On 05/05/18, she then underwent the next stage in the breast reconstruction process which was delayed right breast reconstruction with removal of saline tissue bond runner with replacement cohesive gel implant (800 ml) and placement of Alloderm acellular dermal matrix graft inferolateral sling (132 cm2) and revision reconstructed right breast with excision nonhealing ulcer and excess mastectomy skin scar contour deformity. A couple of weeks later she developed an infection of the right breast implant and it was removed. The wound was left open with aggressive wound care with the VAC as well as with antibiotics. Patient was informed of the risks and complications of the procedure including alternatives to surgery. These were discussed with the patient personally. Patient voices understanding and wishes to proceed. I used Kiya absorbable hemostat, (I used 2 vials). Reference Number - [id number]. Lot Number - [id number]. Expiration - April 25, 2023. line ordering clinician: Bubba Ramos. Type of Anesthesia:: General Specimen's removed: 1. Nonhealing MRSA ulcer right breast to Pathology and Microbiology. 2. MRSA Wound DNA by PCR. Drains: Khalida. Estimated Blood Loss (mL): 200 ml. Description of Procedure: Patient was taken to OR in supine position and was placed under general anesthesia. The right breast was prepped and draped in the usual fashion. SCD's were placed for DVT prophylaxis. Perioperative antibiotics were given intravenously. Using xylocaine with epinephrine, the right breast ulcer was infiltrated. After waiting 5 minutes for the anesthetic to take effect, I proceeded with excisional debridement of this nonhealing ulcer. The skin edges were curled in prior to the excision which will aid in wound closure. The base of the ulcer on the chest wall muscle was quite dense and thick. With her history of MRSA, the entire thick dense scar tissue was excised. Hemostasis was obtained with electrocautery. The debrided tissue was sent to Pathology for analysis to rule out carcinoma and to Microbiology for culture. MRSA Wound DNA by PCR was also done. She was treated perioperatively with Vancomycin. I freed up the breast skin flaps at the level of the chest wall to aid in wound closure. The wound was irrigated with saline. I placed a size 15 Khalida drain through a separate stab incision laterally. It was secured to the skin with 3-0 Nylon suture. I then sprayed Kiya absorbable hemostat into the wound to minimize seroma formation. I used 2 vials. The wound was then closed in a complex layered fashion with 2-0 Vicryl figure of eight interrupted sutures for the underlying muscle and Georgina's fascia. The deep dermis and subcutaneous tissue was approximated with 3-0 Monocryl interrupted sutures. The skin was approximated with 3-0 V lock unidirectional barbed running subcuticular suture. This was followed by Histoacryl skin tissue adhesive. Dry Kerlix gauze dressing was applied followed by compression LILLY wrap. Patient tolerated the procedure well and was sent to PACU in satisfactory condition. Patient will be sent upstairs for continued postop care. Will continue the Vancomycin and have a PICC line placed tomorrow. Grafts/Implants Used: None. - Complications None. - Admit VTE Documentation VTE Present on Admission: No VTE Mechan Device Prophylaxis: SCD's VTE Pharm Prophylaxis ordered?: Yes Code Visit Surgery Charges CPT - 72403 ICD-10 - L98.492, N61.1, N65.1, N65.0, Z86.14, Z90.11, Z40.01, Z98.86, T85.79xS, Z87.891 90736 L98.492, N61.1, N65.1, N65.0, Z86.14, Z90.11, Z40.01, Z98.86, T85.79xS, Z87.891 09/14/18 1727 <Electronically signed by Sean Stevenson MD> Date Sean Stevenson MD CC: Jonn Pedroza MD; Sean Stevenson MD; Eduardo Rubio DO; [facility] Signed CBC-COMPLETE BLOOD CNT Collected: 09/14/2018 Status: F Source: ROHINI NO DIFF 9:30 AM [facility] REPOSITORY TYPE CODE TESTS RESULT OUT OF RANGE REFERENCE UNITS LAB L100.1000 4.4-11.0 K/mm3 Normal WBC 6.7 LAB L100.1200 4.2-5.4 M/mm3 Low RBC 3.78 LAB L100.1300 12.0-15.0 g/dl Low HGB 10.2 LAB L100.1400 37-47 % Low HCT 33.9 LAB L100.1500 81-99 fL Normal MCV 89.7 LAB L100.1600 27.0-32.0 pg Normal MCH 27.0 LAB L100.1700 32-36 g/gl Low MCHC 30.1 LAB L100.1810 11.6-14.6 % High RDW CV 15.8 LAB L100.1820 35.1-43.9 fl High RDW SD 50.3 LAB L100.1900 150-450 K/mm3 Normal PLT 326 LAB L100.2000 6.2-12.0 fl Normal MPV 10.0 Performed By: #### L100.0500, L101.9900 #### [facility] [address] [place], [place], [id number] ERYTHROCYTE SED RATE Collected: 09/14/2018 Status: F Source: ROHINI 9:30 AM [facility] REPOSITORY TYPE CODE TESTS RESULT OUT OF RANGE REFERENCE UNITS LAB L102.0000 0-20 mm/hr High SED RATE 95 Performed By: #### L100.0500, L101.9900 #### [facility] [address] [place], [place], [id number] COMPREHENSIVE METABOLIC Collected: 09/14/2018 Status: F Source: ROHINI [facility] 9:30 AM [facility] REPOSITORY TYPE CODE TESTS RESULT OUT OF RANGE REFERENCE UNITS LAB L501.0100 74-106 mg/dL Normal GLU 89 Result Comment: Please note revised GLUCOSE reference range effective 2017. LAB L501.1000 7-18 mg/dL Normal BUN 7 LAB L501.1100 0.55-1.02 mg/dL Low CREAT,SERUM 0.48 Result Comment: The validity of the calculated GFR AND GFRAA in patients over 70 years has not been determined. Clinical correlation is essential. LAB L501.1110 >60 mL/min Normal EST GFR 148 Result Comment: Non- GFR Calc LAB L501.1115 >60 mL/min Normal EST GFR - AA 179 Result Comment: GFR Calc LAB L501.1300 10-20 RATIO Normal BUN/CRE 14.6 LAB L501.1500 6.4-8.2 g/dL Low T PROT 5.4 LAB L501.1800 3.2-5.0 g/dL Low ALB 2.4 LAB L501.1950 2.2-4.2 g/dL Normal GLOB 3.0 LAB L501.2000 0.9-2.4 RATIO Low A/G 0.8 LAB L501.2200 8.5-10.1 mg/dL Low CA 6.8 LAB L501.4100 15-37 U/L Low AST 14 LAB L501.4305 45-117 U/L Normal ALK P 60 LAB L501.4405 13-56 U/L Normal ALT 19 LAB L501.4600 0.20-1.00 mg/dL T Normal BILI 0.20 LAB L501.5300 136-145 mmol/L NA Normal 145 LAB L501.5600 3.5-5.1 mmol/L Low K 3.3 LAB L501.5900 98-107 mmol/L High CL 111 LAB L501.6100 21.0-32.0 mmol/L Normal CO2 24.0 LAB L501.6200 5-15 Normal GAP 10 Performed By: #### L500.4050, L501.6710 #### [facility] [address] [place], [address] CRP Collected: 09/14/2018 Status: F Source: ROHINI 9:30 AM [facility] REPOSITORY TYPE CODE TESTS RESULT OUT OF RANGE REFERENCE UNITS LAB L501.6710 0.0-3.0 mg/L High 5.62 C-REACTIVE PROT Result Comment: C-Reactive Protein (CRP) provides useful information for the diagnosis, therapy and monitoring of inflammatory processes and associated diseases. For the evaluation of Relative Risk for Cardiovascular Disease, a High Sensitivity CRP (HSCRP) should be ordered. Performed By: #### L500.4050, L501.6710 #### [facility] [address] [place], [address] VANCOMYCIN, TROUGH Collected: 09/14/2018 Status: F Source: ROHINI LEVEL 9:30 AM [facility] REPOSITORY Order Comment: Time Medication is to be Given? 0000 TYPE CODE TESTS RESULT OUT OF RANGE REFERENCE UNITS LAB L501.8820 5.0-15.0 ug/mL Normal VANCO, TROUGH 10.5 Result Comment: VANCOMYCIN STANDARED DRUG THERAPY TROUGH LEVEL: 5.0 - 15.0 mg/L VANCOMYCIN HIGH INTENSITY THERAPY TROUGH LEVEL: 15.0 - 20.0 mg/L High Intensity therapy recommended for serious life threatening infections include: - Meningitis -Endocarditis -Pneumonia (Ventilator/Healtcare Associated) -Sepsis PLEASE CONTACT PHARMACY SERVICES (#[id number]) FOR INTERPRETATION OF RESULTS. Performed By: #### L501.8820 #### [facility] [address] [facility] [place], [address] DISCHARGE INSTRUCTION Observed: 09/10/2018 Status: F Source: ROHINI 12:15 PM [facility] REPOSITORY [facility] Medical Records Department [facility] [place] [address] Instructions for Home/Discharge Instructions 09/10/18 1212 MR#: [id number] Acct: [id number] Name: ROBLES CARRASQUILLO Rep #: [id number] : 1970 48 From: Sean Stevenson MD PCP: Eduardo Rubio DO Status: ADM IN You will use the following diet at home:: No restrictions Discharge Activity: May not drive while taking narcotic pain medications., May Not Shower - until the drain is removed. May shower in (days): 14 - after the drain is removed in the office. May resume sexual activity in: 10-14 days Weight Bearing Status: Weight bearing as tolerated Lifting Restrictions: 20 lbs. Keep extremity elevated above heart level: - - elevate head. Call your doctor if your incision/area has: Continuous Slow Oozing, Sudden Increased Bleeding, Increased Pain/ Swelling, Increased Redness, Foul Smelling Discharge, Swelling at the incision site Call your doctor if you observe: Fever of 101 or Higher, Coldness, Increased Pain, Shortness of breath, Chest pain, Calf discomfort, Uncontrolled pain Suture Line Care: - - dry dressings daily followed by compression LILLY wrap. Change Dressing in (Days):: 1 - dry dressings daily followed by compression LILLY wrap. Cleanse incision/area with: - - may get incision wet in the shower after the drain is removed. Drain: Suction - khalida drain to bulb suction. empty and record output daily. Allergies/Adverse Reactions: Allergies codeine Allergy (Verified 09/07/18 13:42) Rash Penicillins Allergy (Verified 09/07/18 13:42) Rash NSAIDS (Non-Steroidal Anti-Inflamma Adverse Reaction (Verified 09/07/18 13:42) Other UNABLE TO TAKE DUE TO WEIGHT LOSS SURGERY Medications to take at Discharge Calcium Carbonate/Vitamin D3 [Calcium 600-Vit D3 400 Caplet] 1 ea PO BID 08/15/15 Cholecalciferol (VIT D3) [Vitamin D3] 2,000 unit PO DAILY 08/15/15 Multivitamins,Ther W-Minerals [Multivitamin With Minerals] 1 tab PO DAILY 08/15/15 Nortriptyline HCl [Pamelor] 50 mg PO QHS 04/03/16 buPROPion XL [Wellbutrin Xl] 450 mg PO DAILY 04/18/17 Iron Polysaccharide Complex [Ferrex 150] 150 mg PO BID 05/01/17 Acetaminophen [Tylenol] 1,000 mg PO Q8H PRN #1 tab 05/06/17 Ascorbic Acid [Vitamin C] 1,000 mg PO BID 12/03/17 Fluoxetine HCl [Prozac] 40 mg PO DAILY 12/03/17 Magnesium 250 mg PO QHS 12/03/17 Docusate Sodium [Colace] 100 mg PO BID #60 cap 12/18/17 proMETHazine tablet [Phenergan tablet] 25 mg PO 4X/DAY PRN PRN #30 tab 12/18/17 Zolpidem Tartrate [Ambien] 10 mg PO QHS PRN 04/07/18 DiphenhydrAMINE [Benadryl] 50 mg PO 4X/DAY PRN cap 05/07/18 levothyroxine 175 mcg tablet 200 mcg PO DAILY 07/01/18 Vancomycin IV 1,750 mg IV Q12H 40 Days #80 vial 09/09/18 Diazepam [Valium] 4 mg PO 4X/DAY PRN PRN #50 tab 09/10/18 HYDROmorphone tablet [Dilaudid] 2 - 4 mg PO 4X/DAY PRN PRN 7 Days #50 tab 09/10/18 The following prescriptions were given: Diazepam [Valium] 4 mg PO 4X/DAY PRN PRN #50 tab PRN Reason: Spasms HYDROmorphone tablet [Dilaudid] 2 - 4 mg PO 4X/DAY PRN PRN 7 Days #50 tab PRN Reason: Severe Pain (-07/08) Vancomycin IV 1,750 mg IV Q12H 40 Days #80 vial Primary Care Physician: Eduardo Perkins DO [Primary Care Provider] - Test Results: Test results from this visit will be discussed in further detail at your follow-up appointment, if applicable. Please Follow Up With: Sean Stevenson MD When: one week. call [phone] for appt. Proposed Discharge Date: 09/10/18 09/10/18 1215 <Electronically signed by Sean Stevenson MD> Date Sean Stevenson MD CC: Jonn Pedroza MD; Eduardo Rubio DO; [facility] VANCOMYCIN, TROUGH Collected: 09/10/2018 Status: F Source: ROHINI LEVEL 9:20 AM [facility] REPOSITORY Order Comment: Comments: Please draw 09/10 @ 0930 Time Medication is to be Given? 1000 TYPE CODE TESTS RESULT OUT OF RANGE REFERENCE UNITS LAB L501.8820 5.0-15.0 ug/mL Normal VANCO, TROUGH 10.8 Result Comment: VANCOMYCIN STANDARED DRUG THERAPY TROUGH LEVEL: 5.0 - 15.0 mg/L VANCOMYCIN HIGH INTENSITY THERAPY TROUGH LEVEL: 15.0 - 20.0 mg/L High Intensity therapy recommended for serious life threatening infections include: - Meningitis -Endocarditis -Pneumonia (Ventilator/Healtcare Associated) -Sepsis PLEASE CONTACT PHARMACY SERVICES (#[id number]) FOR INTERPRETATION OF RESULTS. Performed By: #### L501.8820 #### [facility] [address] [place], [place], [address] CBC-COMPLETE BLOOD CNT Collected: 09/10/2018 Status: F Source: ROHINI NO DIFF 5:37 AM [facility] REPOSITORY TYPE CODE TESTS RESULT OUT OF RANGE REFERENCE UNITS LAB L100.1000 4.4-11.0 K/mm3 Normal WBC 6.5 LAB L100.1200 4.2-5.4 M/mm3 Low RBC 3.65 LAB L100.1300 12.0-15.0 g/dl Low HGB 9.9 LAB L100.1400 37-47 % Low HCT 32.7 LAB L100.1500 81-99 fL Normal MCV 89.6 LAB L100.1600 27.0-32.0 pg Normal MCH 27.1 LAB L100.1700 32-36 g/gl Low MCHC 30.3 LAB L100.1810 11.6-14.6 % High RDW CV 15.3 LAB L100.1820 35.1-43.9 fl High RDW SD 49.0 LAB L100.1900 150-450 K/mm3 Normal PLT 287 LAB L100.2000 6.2-12.0 fl Normal MPV 9.6 Performed By: #### L100.0500 #### [facility] [address] [facility] [place], [place], [id number] COMPREHENSIVE METABOLIC Collected: 09/10/2018 Status: F Source: ROHINI PROFIL 5:37 AM [facility] REPOSITORY TYPE CODE TESTS RESULT OUT OF RANGE REFERENCE UNITS LAB L501.0100 74-106 mg/dL Normal GLU 89 Result Comment: Please note revised GLUCOSE reference range effective 2017. LAB L501.1000 7-18 mg/dL Normal BUN 13 LAB L501.1100 0.55-1.02 mg/dL Low CREAT,SERUM 0.53 Result Comment: The validity of the calculated GFR AND GFRAA in patients over 70 years has not been determined. Clinical correlation is essential. LAB L501.1110 >60 mL/min Normal EST GFR 132 Result Comment: Non- GFR Calc LAB L501.1115 >60 mL/min Normal EST GFR - AA 160 Result Comment: GFR Calc LAB L501.1255 ml/min Normal Estimated CRCL 124.16 LAB L501.1300 10-20 RATIO High BUN/CRE 24.6 LAB L501.1500 6.4-8. g/dL Low 2 T PROT 6.1 LAB L501.1800 3.2-5. g/dL Low 0 ALB 2.8 LAB L501.1950 2.2-4. g/dL 2 GLOB Normal 3.3 LAB L501.2000 0.9-2. RATIO Low 4 A/G 0.8 LAB L501.2200 8.5-10 mg/dL Low .1 CA 7.9 LAB L501.4100 15-37 U/L Low AST 14 LAB L501.4305 45-117 U/L ALK P Normal 68 LAB L501.4405 13-56 U/L ALT Normal 19 LAB L501.4600 0.20-1 mg/dL .00 T BILI Normal 0.20 LAB L501.5300 136-14 mmol/L 5 NA Normal 142 LAB L501.5600 3.5-5. mmol/L 1 K Normal 4.0 LAB L501.5900 98-107 mmol/L CL Normal 106 LAB L501.6100 21.0-3 mmol/L 2.0 CO2 Normal 30.0 LAB L501.6200 5-15 GAP Normal 6 Performed By: #### L500.4050 #### [facility] [address] [place], [address] HISTORY AND PHYSICAL Observed: 09/10/2018 Status: F Source: VANDERWAGEN EXAM 12:08 AM [facility] REPOSITORY [facility] Medical Records Department [address] [facility] [place] [address] History and Physical 09/07/18 9259 MR#: [id number] Acct: [id number] Name: JASMINLUIS EDUARDOROBLES Rep #: [id number] : 1970 48 From: Sean Stevenson MD PCP: Eduardo Garison, DO Status: ADM IN Y Location: MS3 [id number] History and Physical Date of Admission: 09/08/18 HISTORY OF PRESENT ILLNESS 48 year old woman comes in today for further evaluation breast reconstruction after undergoing completion mastectomy right breast in 04/14. She has a history of recurrent breast infections bilaterally. Most recently she had developed MRSA in the right breast. She has had multiple operative drainage procedures both before and after her bilateral breast reduction mammaplasty in 10/15. She denies fever at present. She started the breast reconstruction process on 12/16/17 where she underwent 1st stage delayed right breast reconstruction with placement of submuscular saline tissue bond runner (800 ml) and placement DermACELL decellularized dermis graft (160 cm2). She tolerated the tissue expansion. On 05/05/18, she then underwent the next stage in the breast reconstruction process which was delayed right breast reconstruction with removal of saline tissue bond runner with replacement cohesive gel implant (800 ml) and placement of Alloderm acellular dermal matrix graft inferolateral sling (132 cm2) and revision reconstructed right breast with excision nonhealing ulcer and excess mastectomy skin scar contour deformity. A couple of weeks later she developed an infection of the right breast implant and it was removed. The wound was left open with aggressive wound care with the VAC as well as with antibiotics. She presents today for further excisional debridement with skin grafting and/or complex secondary wound closure. 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 Incisional hernia repair 07/03/10 panniculectomy 04/2013 hernia repair with mesh - 2014 incision and drainage breast abscess - 04/12 and 08/13 surgical preparation left breast with mastotomy, and incision and drainage and excisional debridement recurrent left breast infection ulcer with 3 cm partial secondary wound closure - 11/21/15 excisional debridement nonhealing recurrent infected ulcer left breast at medial periareolar area with complex secondary wound closure - 12/28/15 excisional debridement nonhealing recurrent infected ulcer left breast at medial periareolar area with complex secondary wound closure - 04/04/16 mastotomy right breast with incision and drainage abscess and excision with partial mastectomy - 06/07/16 Bilateral breast reduction mammaplasty with bilateral free nipple graft reconstruction - 10/01/16 Surgical preparation revision right breast reconstruction with excisional debridement nonhealing surgical wounds lateral aspect and medial aspect with secondary wound closure and excisional debridement compromised graft ulceration nipple area and nonhealing surgical wound Tzone area with FTSG from right lateral breast (25 cm2) - 11/21/16 Surgical preparation right breast with incison and drainage and excisional debridement nonhealing infected nipple graft ulcer (63 cm2) - 01/10/17 Excisional debridement recurrent nonhealing infected MRSA ulcer right breast and compromised skin graft right nipple with completion mastectomy - 04/18/17 Incision and drainage right mastectomy MRSA wound infection - 05/02/17 1st stage delayed right breast reconstruction with placement of submuscular saline tissue bond runner (800 ml) and placement DermACELL decellularized dermis graft (160 cm2) - 12/16/17 Delayed right breast reconstruction with removal of saline tissue bond runner with replacement cohesive gel implant (800 ml) and placement of Alloderm acellular dermal matrix graft inferolateral sling (132 cm2) and revision reconstructed right breast with excision nonhealing ulcer and excess mastectomy skin scar contour deformity - 05/05/18 Revision right breast reconstruction with incision and drainage and excisional debridement abscess with capsulectomy and removal infected breast implant - 05/19/18 MEDICATIONS: Pamelor. MVI. Synthroid. Vitamin B12. Celexa. Vitamin D3. Wellbutrin. Vitamin E. Iron supplements. B Complex with Vitamin C. ALLERGIES: Codeine. Penicillin. NSAID's. FAMILY HISTORY: Father (biol.) - Has Family History of Hypertension PGM - Has Family History of Diabetes PGM - Has Family History of Heart Disease Mother (biol.) - Has Family History of Asthma Brother (full) - Has Family History of Asthma Father (biol.) - Has Family History of Depression negative for breast cancer. Heart disease. Thyroid cancer. Parkinson's disease. SOCIAL HISTORY: Patient was smoking up to 1/2-1ppd x 20 years. She has recently quit. Alcohol Use - no Drug Use - no Regular Exercise - no single, but live with partner for 12 years, have two children together, one son, one girl age 11 and 9, son has Asberger patient does not use aspirin. patient does not use ibuprofen. REVIEW OF SYSTEMS: General - Denies fever, fatigue and weakness. Had 150 lb weight loss after gastric bypass in 2009. Eyes - Denies eye pain. ENT - Denies nasal congestion and sore throat. Had thyroidectomy. Had tonsillectomy. CV - Denies chest pain or discomfort, fatigue, lightheadedness and shortness of breath with exertion. Resp - Denies cough and shortness of breath. Patient is a former smoker. GI - Denies nausea, vomiting, diarrhea and constipation. Gastric bypass due to severe obesity 158lbs loss. - Denies blood in urine and urinary frequency. Had hysterectomy MS - Complains of back pain. Denies joint pain, stiffness, muscle weakness and arthritis. Derm - Denies suspicious lesions and skin cancer. Neuro - Denies headaches and numbness. Psych - Complains of anxiety and depression. Endo - Denies excessive urination and excessive thirst. Has had recurrent breast infections. Heme - Denies bleeding and abnormal bruising. PHYSICAL EXAMINATION: General: well developed, well nourished, in no acute distress. Bra size was 42 D prior to the breast reduction. Head: normocephalic and atraumatic. Eyes: PERRL/EOM intact, conjunctiva and sclera clear. Neck: no masses, thyromegaly, or abnormal cervical nodes. Breasts: Left breast is well healed with vertical and horizontal incisions. Good shape and contour left breast. Right breast mastectomy ulcer is clean with granulation tissue. Minimal tenderness noted. Measures 5 x 14 x 0.1 cm. Lungs: clear bilaterally to auscultation. Heart: regular rate and rhythm. Msk: no bony tenderness. Pulses: pulses normal in all 4 extremities. Extremities: no clubbing, cyanosis, edema, or deformity noted with normal full range of motion of all joints. Neurologic: cranial nerves II-XII grossly intact. Skin: no rashes. Cervical Nodes: no significant adenopathy. Axillary Nodes: no significant adenopathy. Psych: alert and cooperative; normal mood and affect; normal attention span and concentration. ASSESSMENT 1. Nonhealing ulcer right breast reconstruction. 2. Recurrent infections bilateral breasts. 3. Bilateral macromastia s/p breast reduction mammaplasty. 4. s/p completion mastectomy right breast. 5. Acquired absence right breast. 6. Disproportion reconstructed breasts. 7. Former smoker. 8. MRSA. 9. Deformity right breast reconstruction s/p removal of infected breast implant. PLAN With her history of MRSA, will treat her perioperatively with Vancomycin. Will continue her next stage in her breast reconstruction process with excisional debridement and skin grafting and/or complex secondary wound closure. removal of the saline tissue bond runner with replacement cohesive gel implant. Tissue that is removed will be sent to Pathology for analysis to rule out carcinoma and to Microbiology for culture. Anticipate placement of a PICC line for IV antibiotics because of her history of MRSA and her extensive history of breast infections. Will have drains in for several days. Will keep her head elevated postoperatively. Surgery will be done under general anesthesia with a surgical observation overnight stay in the hospital. After surgery, if there is compromise with healing of the breast flaps, she can continue her HBO treatments. The patient was informed of the risks and complications of the procedure including alternatives to surgery. These were discussed with the patient personally. The patient voices understanding and wishes to proceed. 09/10/18 0008 <Electronically signed by Sean Stevenson MD> Date Sean Stevenson MD Cosigner Signature: Date (if applicable) CC: Jonn Pedroza MD; Sean Stevenson MD; Eduardo Rubio DO; [facility] Signed CBC-COMPLETE BLOOD CNT Collected: 09/09/2018 Status: F Source: ROHINI NO DIFF 5:16 AM [facility] REPOSITORY TYPE CODE TESTS RESULT OUT OF RANGE REFERENCE UNITS LAB L100.1000 4.4-11.0 K/mm3 Normal WBC 9.2 LAB L100.1200 4.2-5.4 M/mm3 Low RBC 3.97 LAB L100.1300 12.0-15.0 g/dl Low HGB 10.5 LAB L100.1400 37-47 % Low HCT 35.2 LAB L100.1500 81-99 fL Normal MCV 88.7 LAB L100.1600 27.0-32.0 pg Low MCH 26.4 LAB L100.1700 32-36 g/gl Low MCHC 29.8 LAB L100.1810 11.6-14.6 % High RDW CV 15.3 LAB L100.1820 35.1-43.9 fl High RDW SD 48.9 LAB L100.1900 150-450 K/mm3 Normal PLT 318 LAB L100.2000 6.2-12.0 fl Normal MPV 9.9 Performed By: #### L100.0500 #### [facility] [address] [place], [address] BASIC METABOLIC Collected: 09/09/2018 Status: F Source: VANDERWAGEN PROFILE (BMP) 5:16 AM [facility] REPOSITORY TYPE CODE TESTS RESULT OUT OF RANGE REFERENCE UNITS LAB L501.0100 74-106 mg/dL Normal GLU 97 Result Comment: Please note revised GLUCOSE reference range effective 2017. LAB L501.1000 7-18 mg/dL Normal BUN 7 LAB L501.1100 0.55-1.02 mg/dL Low CREAT,SERUM 0.53 Result Comment: The validity of the calculated GFR AND GFRAA in patients over 70 years has not been determined. Clinical correlation is essential. LAB L501.1110 >60 mL/min Normal EST GFR 133 Result Comment: Non- GFR Calc LAB L501.1115 >60 mL/min Normal EST GFR - AA 161 Result Comment: GFR Calc LAB L501.1255 ml/min Normal Estimated CRCL 124.16 LAB L501.1300 10-20 RATIO BUN/CRE Normal 13.3 LAB L501.2200 8.5-10 mg/dL Low .1 CA 8.3 LAB L501.5300 136-14 mmol/L 5 NA Normal 140 LAB L501.5600 3.5-5. mmol/L 1 K Normal 4.1 LAB L501.5900 98-107 mmol/L CL Normal 105 LAB L501.6100 21.0-3 mmol/L 2.0 CO2 Normal 26.0 LAB L501.6200 5-15 GAP Normal 9 Performed By: #### L500.2500, L506.0500 #### [facility] [address] [place], [address] PREALBUMIN Collected: 09/09/2018 Status: F Source: ROHINI 5:16 AM [facility] REPOSITORY TYPE CODE TESTS RESULT OUT OF RANGE REFERENCE UNITS LAB L506.0500 20.0-40.0 mg/dL Normal PREALBUMIN 25.1 Performed By: #### L500.2500, L506.0500 #### [facility] [address] [facility] [place], [address] BASIC METABOLIC Collected: 09/08/2018 Status: F Source: ROHINI PROFILE (BMP) 8:57 PM [facility] REPOSITORY Order Comment: Comments: NEED SCR FOR VANCOMYCIN DOSING TYPE CODE TESTS RESULT OUT OF RANGE REFERENCE UNITS LAB L501.0100 74-106 mg/dL High GLU 173 Result Comment: Fasting Glucose result greater than or equal to 126 mg/dL suggests DIABETES MELLITUS per A.D.A. criteria. Please note revised GLUCOSE reference range effective 2017. LAB L501.1000 7-18 mg/dL Normal BUN 9 LAB L501.1100 0.55-1.02 mg/dL Normal CREAT,SERUM 0.81 Result Comment: The validity of the calculated GFR AND GFRAA in patients over 70 years has not been determined. Clinical correlation is essential. LAB L501.1110 >60 mL/min Normal EST GFR 80 Result Comment: Non- GFR Calc LAB L501.1115 >60 mL/min Normal EST GFR - AA 97 Result Comment: GFR Calc LAB L501.1255 ml/min Normal Estimated CRCL 81.24 LAB L501.1300 10-20 RATIO Normal BUN/CRE 11.1 LAB L501.2200 8.5-10 mg/dL Low .1 CA 8.3 LAB L501.5300 136-14 mmol/L Normal 5 NA 136 LAB L501.5600 3.5-5. mmol/L Normal 1 K 4.4 LAB L501.5900 98-107 mmol/L Normal CL 103 LAB L501.6100 21.0-3 mmol/L Normal 2.0 CO2 23.0 LAB L501.6200 5-15 Normal GAP 10 Performed By: #### L500.2500 #### [facility] [address] [place], [address] MRSA WOUND DNA BY Collected: 09/08/2018 Status: F Source: ROHINI PCR 5:28 PM [facility] REPOSITORY Order Comment: Comments: Nonhealing Right Breast Ulcer Specimen Source? ULCER TYPE CODE TESTS RESULT OUT OF RANGE REFERENCE UNITS LAB L8200.1100 Negative Normal MRSA Negative RESULT LAB L8200.1150 Negative Normal SA RESULT NEGATIVE Performed By: #### L8200.1075 #### [facility] [address] [place], [address] Observed: 09/08/2018 Status: F Source: ROHINI CULTURE, DEEP WOUND 5:26 PM [facility] REPOSITORY Order Date: 04/30/17 Comments: Nonhealing Right Breast Ulcer Soft Tissue Gram Stain Gram Stain 3+ Red Blood Cells No organisms seen Wound Culture No growth aerobically. Cult, Anaerobic No anaerobic bacteria isolated. Performed By: #### M100.1500 #### [facility] [address] [place], [address] ULCER Observed: 09/08/2018 Status: F Source: ROHINI 2:40 PM [facility] REPOSITORY Patient: ROBLES CARRASQUILLO : 1970 (48/F) Acct Num: [id number] Phys: Sean Stevenson MD Unit Num: [id number] Loc: MS3 [id number] Specimen: [id number] Received: 09/09/181101 Spec Type: ULCER TISSUES 1 TISSUES: Right breast, NOS GROSS DESCRIPTION Received in fixative is one container labeled with the patient's name and designated nonhealing right breast ulcer soft tissue. The specimen consists of multiple pieces of skin with underlying tissue that in aggregate measure 15 x 12 x 4 cm. The skin surface shows a focal area of ulceration. No mass lesion is identified. Reliner sections are submitted in three cassettes. / JOHN: latha 09/09/18 TC:2 CPT: 08543 HEADER OPERATION: Right breast ulcer excisional debridement, secondary wound PRE-OP DIAGNOSIS: Nonhealing ulcer right breast reconstruction; recurrent infections bilateral breasts TISSUE SUBMITTED: Nonhealing right breast ulcer soft tissue MICROSCOPIC DESCRIPTION Slides are reviewed. MICROSCOPIC DIAGNOSIS Nonhealing right breast ulcer soft tissue, excisional debridement: Pieces of skin with underlying tissue with focal ulceration and associated acute and chronic inflammation and fibrosis. SJ:latha 09/10/18 Signed Andres Jain 09/10/18 <signature on file> Performed By: #### PUL #### [facility] [address] [place], [place], [address] THYROID STIM HORMONE Collected: 08/28/2018 Status: F Source: ROHINI (TSH) 11:57 AM [facility] REPOSITORY TYPE CODE TESTS RESULT OUT OF RANGE REFERENCE UNITS LAB L501.9520 0.358-3.74 uIU/mL Normal TSH 1.72 Performed By: #### L501.9520, L506.0400 #### [facility] [address] [facility] [address] T4 FREE DIRECT Collected: 08/28/2018 Status: F Source: ROHINI 11:57 AM [facility] REPOSITORY TYPE CODE TESTS RESULT OUT OF RANGE REFERENCE UNITS LAB L506.0400 0.76-1.46 ng/dL Normal T4 FREE 1.16 DIRECT Performed By: #### L501.9520, L506.0400 #### [facility] [address] [place], [address] Observed: 08/17/2018 Status: F Source: ROHINI CULTURE, WOUND 8:55 AM [facility] REPOSITORY Gram Stain Gram Stain 4+ Red Blood Cells Rare White Blood Cells No organisms seen Wound Culture Possible skin contamination, further Identification and sensitivity will be performed only by physician's request. ORGANISM 1: Gram positive igor Amount Growth 3+ ORGANISM 2: Coag Negative Staph Amount Growth Rare Performed By: #### M100.1400 #### [facility] [address] [place], [address] PLASTIC SURGERY Observed: 07/04/2018 Status: F Source: VANDERWAGEN VISIT REPORT 11:36 PM [facility] REPOSITORY [facility] [address] [place] [address] OFFICE VISIT Date of Service: 07/01/18 MR#: [id number] Acct: [id number] Name: ROBLES CARRASQUILLO Rep #: [id number] : 1970 Provider: Sean Stevenson MD Age/Sex: 48/F Location: [facility] Status: Signed Intake Vital Signs07/01/18 Blood Pressure 125/83 H H 07/01/18 Blood Pressure Location Rt brachial 07/01/18 Blood Pressure Position Sitting 07/01/18 Respiratory Rate 18 07/01/18 Pulse Rate 107 H Intake Visit Reasons: postop surgery 05/05/18 and 05/19/18 Alining Inspector Required: No Accompanied by: None Is patient in pain?: No Allergies codeine Allergy (Verified 07/01/18 10:23) Rash Penicillins Allergy (Verified 07/01/18 10:23) Rash NSAIDS (Non-Steroidal Anti-Inflamma Adverse Reaction (Verified 07/01/18 10:23) Other Medications Calcium Carbonate/Vitamin D3 [Calcium 600-Vit D3 400 Caplet] 1 ea PO BID 08/15/15 [History Confirmed 07/01/18] Cholecalciferol (VIT D3) [Vitamin D3] 2,000 unit PO DAILY 08/15/15 [History Confirmed 07/01/18] Multivitamins,Ther W-Minerals [Multivitamin With Minerals] 1 tab PO DAILY 08/15/15 [History Confirmed 07/01/18] Nortriptyline HCl [Pamelor] 50 mg PO QHS 04/03/16 [History Confirmed 07/01/18] buPROPion XL [Wellbutrin Xl] 450 mg PO DAILY 04/18/17 [History Confirmed 07/01/18] Iron Polysaccharide Complex [Ferrex 150] 150 mg PO BID 05/01/17 [History Confirmed 07/01/18] Acetaminophen [Tylenol] 1,000 mg PO Q8H PRN #1 tab 05/06/17 [Rx Confirmed 07/01/18] Ascorbic Acid [Vitamin C] 1,000 mg PO BID 12/03/17 [History Confirmed 07/01/18] Fluoxetine HCl [Prozac] 40 mg PO DAILY 12/03/17 [History Confirmed 07/01/18] Magnesium 250 mg PO QHS 12/03/17 [History Confirmed 07/01/18] Docusate Sodium [Colace] 100 mg PO BID #60 cap 12/18/17 [Rx Confirmed 07/01/18] proMETHazine tablet [Phenergan tablet] 25 mg PO 4X/DAY PRN PRN #30 tab 12/18/17 [Rx Confirmed 07/01/18] Zolpidem Tartrate [Ambien] 10 mg PO QHS 04/07/18 [History Confirmed 07/01/18] DiphenhydrAMINE [Benadryl] 50 mg PO 4X/DAY PRN cap 05/07/18 [Rx Confirmed 07/01/18] HYDROmorphone tablet [Dilaudid] 2 - 4 mg PO 4X/DAY PRN PRN 5 Days #40 tab 05/07/18 [Rx Confirmed 07/01/18] Diazepam [Valium] 5 mg PO 4X/DAY PRN #30 tab 05/20/18 [Rx Confirmed 07/01/18] HYDROmorphone tablet [Dilaudid] 2 - 4 mg PO 4X/DAY PRN PRN 7 Days #60 tab 05/20/18 [Rx Confirmed 07/01/18] Heparin Sodium,Porcine/Pf [Heparin 500 Unit/5 ml (100/ml)] 500 unit IV UD PRN syringe 05/20/18 [Rx Confirmed 07/01/18] ceftriaxone 2 gram intravenous solution 2 g .ROUTE .COMPLEX #28 ea 06/05/18 [Rx Confirmed 07/01/18] Ceftriaxone [Rocephin] 2 gm IV X1 06/15/18 [History Confirmed 07/01/18] diazepam 5 mg tablet 5 mg PO 4X/DAY PRN #30 tab 06/29/18 [Rx Confirmed 07/01/18] hydromorphone 2 mg tablet See Rx Instructions PO 4X/DAY PRN #40 tab 06/29/18 [Rx Confirmed 07/01/18] levothyroxine 175 mcg tablet 200 mcg PO DAILY 07/01/18 [History Confirmed 07/01/18] PFSH Medical History Abscess (Acute) Anemia (Acute) Anxiety (Acute) BREAST LUMP/CYST (Acute) COMPROMISED BILATERAL BREAST REDUCTION NIPPLE GRAFTS (Acute) Depression (emotion) (Acute) Disproportion of reconstructed breast (Acute) Graves disease (Acute) Hypertriglyceridemia (Acute) Hypothyroidism (Acute 2001) MRSA (methicillin resistant staph aureus) culture positive (Acute) Metabolic syndrome (Acute) NONHEALING SURGICAL WOUND RIGHT BREAST (Acute) NONHEALING ULCER LEFT BREAST AT VERTICAL INCISION (Acute) Obesity (Acute) Ovarian cyst (Acute) RECURRENT INFECTED ULCER LEFT BREAST (Acute) RECURRENT NONHEALING INFECTED MRSA ULCER RIGHT BREAST (Acute) Seasonal allergies (Acute) Hypertension (Chronic) Surgical History BILATERAL BREAST REDUCTION MAMMAPLASTY (Acute) COMPLETE THYROIDECTOMY DUE TO GRAVES' DISEASE (Acute 11/2001) Delivered by section (Acute) EXCISIONAL DEBRIDEMENT RECURRENT NONHEALING INFECTED MRSA (Acute) EXCISIONL DEBRIDEMENT NONHEALING RECURRENT INFECTED ULCER (Acute) Gastric bypass status for obesity (Acute) HERNIA REPAIR WITH MESH (Acute 2014) History of bilateral ligation of fallopian tubes (Acute 2000) History of incisional hernia repair (Acute 07/03/10) History of tonsillectomy (Acute 12/2003) INCISION AND DRAINAGE BREAST ABSCESS (Acute) MASTOTOMY RIGHT BREAST (Acute) PANICULECTOMY (Acute 04/2013) S/P complete hysterectomy (Acute) SURGICAL PREPARATION AND REVISION BREAST RECONSTRUCTION (Acute) SURGICAL PREPARATION LEFT BREAST WITH MASTECTOMY (Acute) SURGICAL PREPARATION RIGHT BREAST (Acute) Family History Father , FROM MRSA AT AGE 50 Hypertension Hyperlipidemia Acute depression Diabetes Mother Asthma Grandmother Diabetes Heart disease Grandmother Hypertension Diabetes Grandfather Parkinson disease Brother Asthma Aunt Thyroid cancer Uncle Thyroid cancer Social History household members: significant other, children number of children: 2 current occupational status: unemployed Smoking Status: Former smoker second hand exposure: No alcohol intake: current details: BEER seatbelt use: always do you feel safe at home: Yes additional social history: SUN EXPOSURE: OCCASIONALLY HPI postop surgery 05/05/18 and 05/19/18: Details: Postop visit from her recent surgery on 05/19/18 where she underwent revision right breast reconstruction with incision and drainage and excisional debridement abscess with capsulectomy and removal infected breast implant. She was discharged from the hospital on 05/21/18. Postop visit from her surgery on 05/05/18 where she underwent delayed right breast reconstruction with removal of saline tissue bond runner with replacement cohesive gel implant (800 ml) and placement of Alloderm acellular dermal matrix graft inferolateral sling (132 cm2) and revision reconstructed right breast with excision nonhealing ulcer and excess mastectomy skin scar contour deformity. She was discharged from the hospital on 05/07/18. Pathology from 05/19/18 surgery showed acute and chronic inflammation and foreign body giant cell reaction. Her operative culture results from 05/19/18 showed Citrobacter koseri. She was placed on Ceftriaxone as the Vancomycin was stopped. Her operative culture was negative from the 05/05/18 surgery. She had called a few days ago and stated the PICC line was almost out, and she only had a couple more days of the antibiotics. She pulled it out and brought it in. The tip was intact. The antibiotics are stopped. She comes in today with complains of wound pain that is controlled with Dilaudid. She has spasm from the VAC that is controlled with Valium. On exam, her breast wound is clean with some granulation tissue. Dimensions have decreased to 24 x 5 cm. No further evidence of infection. Redressed the wound with saline gauze. Home Health will reapply the VAC later today. [facility] on 07[facility]/18. Will tentatively consider further operative debridement and secondary wound closure in a month. Assessment AND Plan Problems 1. Infection of breast implant T85.79XA 2. Abscess of right breast N61.1 3. Breast implant removal status Z98.86 4. Open wound of right breast with complication S21.001A 5. 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 6. History of MRSA infection Z86.14 7. Disproportion of reconstructed breast N65.1 8. Deformity of reconstructed breast N65.0 9. Breast removal, prophylactic Z40.01 10. Former smoker Z87.891 Coding Level of Care Code Global Post Op Diagnoses Infection of breast implant T85.79XA Abscess of right breast N61.1 Breast implant removal status Z98.86 Open wound of right breast with complication S21.001A 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 History of MRSA infection Z86.14 Disproportion of reconstructed breast N65.1 Deformity of reconstructed breast N65.0 Breast removal, prophylactic Z40.01 Former smoker Z87.891 07/04/18 2426 <Electronically signed by Sean Stevenson MD> Date Sean Stevenson MD Cosigner Signature: Date (if applicable) CC: ERYTHROCYTE SED RATE Collected: 06/29/2018 Status: F Source: ROHINI 10:45 AM [facility] REPOSITORY TYPE CODE TESTS RESULT OUT OF RANGE REFERENCE UNITS LAB L102.0000 0-20 mm/hr High SED RATE 72 Performed By: #### L101.9900, L100.0500 #### [facility] [address] [place], [place], [address] CBC-COMPLETE BLOOD CNT Collected: 06/29/2018 Status: F Source: ROHINI NO DIFF 10:45 AM [facility] REPOSITORY TYPE CODE TESTS RESULT OUT OF RANGE REFERENCE UNITS LAB L100.1000 4.4-11.0 K/mm3 Normal WBC 5.0 LAB L100.1200 4.2-5.4 M/mm3 Low RBC 3.80 LAB L100.1300 12.0-15.0 g/dl Low HGB 10.7 LAB L100.1400 37-47 % Low HCT 35.6 LAB L100.1500 81-99 fL Normal MCV 93.7 LAB L100.1600 27.0-32.0 pg Normal MCH 28.2 LAB L100.1700 32-36 g/gl Low MCHC 30.1 LAB L100.1810 11.6-14.6 % High RDW CV 15.2 LAB L100.1820 35.1-43.9 fl High RDW SD 52.1 LAB L100.1900 150-450 K/mm3 Normal PLT 372 LAB L100.2000 6.2-12.0 fl Normal MPV 9.6 Performed By: #### L101.9900, L100.0500 #### [facility] [address] [place], [address] BASIC METABOLIC Collected: 06/29/2018 Status: F Source: ROHINI PROFILE (BMP) 10:45 AM [facility] REPOSITORY TYPE CODE TESTS RESULT OUT OF RANGE REFERENCE UNITS LAB L501.0100 74-106 mg/dL High GLU 110 Result Comment: Fasting Glucose result from 100 to 125 mg/dL suggests IMPAIRED HOMEOSTASIS per A.D.A. criteria. Please note revised GLUCOSE reference range effective 2017. LAB L501.1000 7-18 mg/dL Normal BUN 8 LAB L501.1100 0.55-1.02 mg/dL Normal CREAT,SERUM 0.68 Result Comment: The validity of the calculated GFR AND GFRAA in patients over 70 years has not been determined. Clinical correlation is essential. LAB L501.1110 >60 mL/min Normal EST GFR 99 Result Comment: Non- GFR Calc LAB L501.1115 >60 mL/min Normal EST GFR - AA 120 Result Comment: GFR Calc LAB L501.1300 10-20 RATIO Normal BUN/CRE 11.8 LAB L501.2200 8.5-10.1 mg/dL Low CA 8.4 LAB L501.5300 136-145 mmol/L NA Normal 140 LAB L501.5600 3.5-5.1 mmol/L K Normal 4.2 LAB L501.5900 98-107 mmol/L CL Normal 104 LAB L501.6100 21.0-32.0 mmol/L Normal CO2 28.0 LAB L501.6200 5-15 Normal GAP 8 Performed By: #### L500.2500 #### [facility] [address] [place], [address] ERYTHROCYTE SED RATE Collected: 06/22/2018 Status: F Source: ROHINI 10:45 AM [facility] REPOSITORY TYPE CODE TESTS RESULT OUT OF RANGE REFERENCE UNITS LAB L102.0000 0-20 mm/hr High SED RATE 89 Performed By: #### L101.9900, L100.0500 #### [facility] [address] [place] [place], [address] CBC-COMPLETE BLOOD CNT Collected: 06/22/2018 Status: F Source: ROHINI NO DIFF 10:45 AM [facility] REPOSITORY TYPE CODE TESTS RESULT OUT OF RANGE REFERENCE UNITS LAB L100.1000 4.4-11.0 K/mm3 Normal WBC 5.0 LAB L100.1200 4.2-5.4 M/mm3 Low RBC 3.84 LAB L100.1300 12.0-15.0 g/dl Low HGB 10.8 LAB L100.1400 37-47 % Low HCT 35.8 LAB L100.1500 81-99 fL Normal MCV 93.2 LAB L100.1600 27.0-32.0 pg Normal MCH 28.1 LAB L100.1700 32-36 g/gl Low MCHC 30.2 LAB L100.1810 11.6-14.6 % High RDW CV 15.4 LAB L100.1820 35.1-43.9 fl High RDW SD 52.5 LAB L100.1900 150-450 K/mm3 Normal PLT 366 LAB L100.2000 6.2-12.0 fl Normal MPV 9.8 Performed By: #### L101.9900, L100.0500 #### [facility] [address] [place], [place], [address] BASIC METABOLIC Collected: 06/22/2018 Status: F Source: ROHINI PROFILE (BMP) 10:45 AM [facility] REPOSITORY TYPE CODE TESTS RESULT OUT OF RANGE REFERENCE UNITS LAB L501.0100 74-106 mg/dL Normal GLU 83 Result Comment: Please note revised GLUCOSE reference range effective 2017. LAB L501.1000 7-18 mg/dL Normal BUN 8 LAB L501.1100 0.55-1.02 mg/dL Normal CREAT,SERUM 0.62 Result Comment: The validity of the calculated GFR AND GFRAA in patients over 70 years has not been determined. Clinical correlation is essential. LAB L501.1110 >60 mL/min Normal EST GFR 110 Result Comment: Non- GFR Calc LAB L501.1115 >60 mL/min Normal EST GFR - AA 134 Result Comment: GFR Calc LAB L501.1300 10-20 RATIO Normal BUN/CRE 12.9 LAB L501.2200 8.5-10.1 mg/dL CA Normal 8.8 LAB L501.5300 136-145 mmol/L NA Normal 141 LAB L501.5600 3.5-5.1 mmol/L K Normal 4.4 LAB L501.5900 98-107 mmol/L CL Normal 106 LAB L501.6100 21.0-32.0 mmol/L Normal CO2 31.0 LAB L501.6200 5-15 Low GAP 4 Performed By: #### L500.2500 #### [facility] [address] [place], [place], [address] BASIC METABOLIC Collected: 06/15/2018 Status: F Source: ROHINI PROFILE (BMP) 4:21 PM [facility] REPOSITORY TYPE CODE TESTS RESULT OUT OF RANGE REFERENCE UNITS LAB L501.0100 74-106 mg/dL Normal GLU 85 Result Comment: Please note revised GLUCOSE reference range effective 2017. LAB L501.1000 7-18 mg/dL Normal BUN 8 LAB L501.1100 0.55-1.02 mg/dL Normal CREAT,SERUM 0.60 Result Comment: The validity of the calculated GFR AND GFRAA in patients over 70 years has not been determined. Clinical correlation is essential. LAB L501.1110 >60 mL/min Normal EST GFR 114 Result Comment: Non- GFR Calc LAB L501.1115 >60 mL/min Normal EST GFR - AA 138 Result Comment: GFR Calc LAB L501.1300 10-20 RATIO Normal BUN/CRE 13.3 LAB L501.2200 8.5-10.1 mg/dL CA Normal 9.0 LAB L501.5300 136-145 mmol/L NA Normal 138 LAB L501.5600 3.5-5.1 mmol/L K Normal 4.2 LAB L501.5900 98-107 mmol/L CL Normal 104 LAB L501.6100 21.0-32.0 mmol/L Normal CO2 27.0 LAB L501.6200 5-15 Normal GAP 7 Performed By: #### L500.2500 #### [facility] [address] [place], [place], [id number] CBC-COMPLETE BLOOD CNT Collected: 06/15/2018 Status: F Source: ROHINI NO DIFF 4:21 PM [facility] REPOSITORY TYPE CODE TESTS RESULT OUT OF RANGE REFERENCE UNITS LAB L100.1000 4.4-11.0 K/mm3 Normal WBC 9.2 LAB L100.1200 4.2-5.4 M/mm3 Low RBC 3.75 LAB L100.1300 12.0-15.0 g/dl Low HGB 10.9 LAB L100.1400 37-47 % Low HCT 35.5 LAB L100.1500 81-99 fL Normal MCV 94.7 LAB L100.1600 27.0-32.0 pg Normal MCH 29.1 LAB L100.1700 32-36 g/gl Low MCHC 30.7 LAB L100.1810 11.6-14.6 % High RDW CV 15.3 LAB L100.1820 35.1-43.9 fl High RDW SD 51.4 LAB L100.1900 150-450 K/mm3 Normal PLT 346 LAB L100.2000 6.2-12.0 fl Normal MPV 9.6 Performed By: #### L100.0500, L101.9900 #### [facility] [address] [place], [address] ERYTHROCYTE SED RATE Collected: 06/15/2018 Status: F Source: VANDERWAGEN 4:21 PM [facility] REPOSITORY TYPE CODE TESTS RESULT OUT OF RANGE REFERENCE UNITS LAB L102.0000 0-20 mm/hr High SED RATE 76 Performed By: #### L100.0500, L101.9900 #### [facility] [address] [place], [place], [address] PLASTIC SURGERY Observed: 06/10/2018 Status: F Source: VANDERWAGEN VISIT REPORT 2:19 PM [facility] REPOSITORY [facility] [address] [place] [address] OFFICE VISIT Date of Service: 06/04/18 MR#: [id number] Acct: [id number] Name: ROBLES CARRASQUILLO Rep #: [id number] : 1970 Provider: Sean Stevenson MD Age/Sex: 48/F Location: [facility] Status: Signed Intake Vital Signs06/04/18 Blood Pressure 111/76 09/06/18 Blood Pressure Location Rt brachial 06/04/18 Blood Pressure Position Sitting 06/04/18 Respiratory Rate 18 Intake Visit Reasons: post op surgery 05/05/18 and 05/19/18 Alining Inspector Required: No Accompanied by: None Is patient in pain?: Yes (CHEST TO RIGHT AXILLA PAIN DEEP BURNING AND PRESSURE) Pain scale (1-10): 6 Allergies codeine Allergy (Verified 06/04/18 16:16) Rash Penicillins Allergy (Verified 06/04/18 16:16) Rash NSAIDS (Non-Steroidal Anti-Inflamma Adverse Reaction (Verified 06/04/18 16:16) Other Medications Levothyroxine [Synthroid] 200 mcg PO DAILY 03/19/14 [History Confirmed 04/07/18] Calcium Carbonate/Vitamin D3 [Calcium 600-Vit D3 400 Caplet] 1 ea PO BID 08/15/15 [History Confirmed 05/05/18] Cholecalciferol (VIT D3) [Vitamin D3] 2,000 unit PO DAILY 08/15/15 [History Confirmed 05/05/18] Multivitamins,Ther W-Minerals [Multivitamin With Minerals] 1 tab PO DAILY 08/15/15 [History Confirmed 05/05/18] Nortriptyline HCl [Pamelor] 50 mg PO QHS 04/03/16 [History Confirmed 05/05/18] buPROPion XL [Wellbutrin Xl] 450 mg PO DAILY 04/18/17 [History Confirmed 05/05/18] Iron Polysaccharide Complex [Ferrex 150] 150 mg PO BID 05/01/17 [History Confirmed 05/05/18] Acetaminophen [Tylenol] 1,000 mg PO Q8H PRN #1 tab 05/06/17 [Rx Confirmed 05/05/18] Ascorbic Acid [Vitamin C] 1,000 mg PO BID 12/03/17 [History Confirmed 05/05/18] Fluoxetine HCl [Prozac] 40 mg PO DAILY 12/03/17 [History Confirmed 05/05/18] Magnesium 250 mg PO QHS 12/03/17 [History Confirmed 05/05/18] Docusate Sodium [Colace] 100 mg PO BID #60 cap 12/18/17 [Rx Confirmed 05/05/18] proMETHazine tablet [Phenergan tablet] 25 mg PO 4X/DAY PRN PRN #30 tab 03/22/18 [Rx Confirmed 05/05/18] Zolpidem Tartrate [Ambien] 10 mg PO QHS 04/07/18 [History Confirmed 05/05/18] Vancomycin IV 1,750 mg IV Q12H 40 Days #80 vial 05/06/18 [Rx] DiphenhydrAMINE [Benadryl] 50 mg PO 4X/DAY PRN cap 05/07/18 [Rx] HYDROmorphone tablet [Dilaudid] 2 - 4 mg PO 4X/DAY PRN PRN 5 Days #40 tab 05/07/18 [Rx] Cefepime HCl [Maxipime] 2 gm IV Q8 vial 05/20/18 [Rx] Diazepam [Valium] 5 mg PO 4X/DAY PRN #30 tab 05/20/18 [Rx] HYDROmorphone tablet [Dilaudid] 2 - 4 mg PO 4X/DAY PRN PRN 7 Days #60 tab 05/20/18 [Rx] Heparin Sodium,Porcine/Pf [Heparin 500 Unit/5 ml (100/ml)] 500 unit IV UD PRN syringe 05/20/18 [Rx] Vancomycin IV 1,750 mg IV Q12H vial 05/20/18 [Rx] Vancomycin IV Pharmacy to Dose 1 ea IV X1 PRN ea 05/20/18 [Rx] Vancomycin IV 2,000 mg IV Q12H #28 vial 05/21/18 [Rx] ceftriaxone 2 gram intravenous solution 2 g .ROUTE .COMPLEX #28 ea 06/05/18 [Rx Confirmed 06/05/18] hydromorphone 2 mg tablet See Label Instructions PO 4X/DAY PRN #50 tab 06/08/18 [Rx Confirmed 06/08/18] PFSH Medical History Abscess (Acute) Anemia (Acute) Anxiety (Acute) BREAST LUMP/CYST (Acute) COMPROMISED BILATERAL BREAST REDUCTION NIPPLE GRAFTS (Acute) Depression (emotion) (Acute) Disproportion of reconstructed breast (Acute) Graves disease (Acute) Hypertriglyceridemia (Acute) Hypothyroidism (Acute 2001) MRSA (methicillin resistant staph aureus) culture positive (Acute) Metabolic syndrome (Acute) NONHEALING SURGICAL WOUND RIGHT BREAST (Acute) NONHEALING ULCER LEFT BREAST AT VERTICAL INCISION (Acute) Obesity (Acute) Ovarian cyst (Acute) RECURRENT INFECTED ULCER LEFT BREAST (Acute) RECURRENT NONHEALING INFECTED MRSA ULCER RIGHT BREAST (Acute) Seasonal allergies (Acute) Hypertension (Chronic) Surgical History BILATERAL BREAST REDUCTION MAMMAPLASTY (Acute) COMPLETE THYROIDECTOMY DUE TO GRAVES' DISEASE (Acute 11/2001) Delivered by section (Acute) EXCISIONAL DEBRIDEMENT RECURRENT NONHEALING INFECTED MRSA (Acute) EXCISIONL DEBRIDEMENT NONHEALING RECURRENT INFECTED ULCER (Acute) Gastric bypass status for obesity (Acute) HERNIA REPAIR WITH MESH (Acute 2014) History of bilateral ligation of fallopian tubes (Acute 2000) History of incisional hernia repair (Acute 07/03/10) History of tonsillectomy (Acute 12/2003) INCISION AND DRAINAGE BREAST ABSCESS (Acute) MASTOTOMY RIGHT BREAST (Acute) PANICULECTOMY (Acute 04/2013) S/P complete hysterectomy (Acute) SURGICAL PREPARATION AND REVISION BREAST RECONSTRUCTION (Acute) SURGICAL PREPARATION LEFT BREAST WITH MASTECTOMY (Acute) SURGICAL PREPARATION RIGHT BREAST (Acute) Family History Father , FROM MRSA AT AGE 50 Hypertension Hyperlipidemia Acute depression Diabetes Mother Asthma Grandmother Diabetes Heart disease Grandmother Hypertension Diabetes Grandfather Parkinson disease Brother Asthma Aunt Thyroid cancer Uncle Thyroid cancer Social History household members: significant other, children number of children: 2 current occupational status: unemployed Smoking Status: Former smoker second hand exposure: No alcohol intake: current details: BEER seatbelt use: always do you feel safe at home: Yes additional social history: SUN EXPOSURE: OCCASIONALLY HPI post op surgery 05/05/18 and 05/19/18: Details: Postop visit from her recent surgery on 05/19/18 where she underwent revision right breast reconstruction with incision and drainage and excisional debridement abscess with capsulectomy and removal infected breast implant. She was discharged from the hospital on 05/21/18. Postop visit from her surgery on 05/05/18 where she underwent delayed right breast reconstruction with removal of saline tissue bond runner with replacement cohesive gel implant (800 ml) and placement of Alloderm acellular dermal matrix graft inferolateral sling (132 cm2) and revision reconstructed right breast with excision nonhealing ulcer and excess mastectomy skin scar contour deformity. She was discharged from the hospital on 05/07/18. Pathology from 05/19/18 surgery showed acute and chronic inflammation and foreign body giant cell reaction. Her operative culture results from 05/19/18 showed Citrobacter koseri. She is currently on Ceftriaxone as the Vancomycin was stopped. Her operative culture was negative from the 05/05/18 surgery. She complains of wound pain that is controlled with Dilaudid. She has spasm from the VAC that is controlled with Valium. Renewed her Dilaudid for pain (50 tabs). On exam, her breast wound is clean with some granulation tissue. Dimensions have decreased to 30 x 8 cm. No further evidence of infection. Redressed the wound with saline gauze. Home Health will reapply the VAC tomorrow. We will continue her IV Ceftriaxone daily. Follow up 06/15 at the wound center. Will tentatively consider further operative debridement and secondary wound closure in a month. Assessment AND Plan Problems 1. Infection of breast implant T85.79XA 2. Abscess of right breast N61.1 3. Open wound of right breast with complication S21.001A 4. Breast implant removal status Z98.86 5. 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 6. History of MRSA infection Z86.14 7. Disproportion of reconstructed breast N65.1 8. Deformity of reconstructed breast N65.0 9. Breast removal, prophylactic Z40.01 10. Former smoker Z87.891 Medications New: hydromorphone (Dilaudid) 2-4 mg PO 4X/DAY PRN pain N61.1, N65.0, N65.1, T85.79XA, Z86.14, Z 90.11, Z98.86 Coding Level of Care Code Global Post Op Diagnoses Infection of breast implant T85.79XA Abscess of right breast N61.1 Open wound of right breast with complication S21.001A Breast implant removal status Z98.86 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 History of MRSA infection Z86.14 Disproportion of reconstructed breast N65.1 Deformity of reconstructed breast N65.0 Breast removal, prophylactic Z40.01 Former smoker Z87.891 06/10/18 1347 <Electronically signed by Sean Stevenson MD> Date Sean Stevenson MD 06/10/18 1419<Electronically signed by Huma SEE> Cosigner Signature: Date (if applicable) Huma Infante [employer]ER-C CC: BASIC METABOLIC Collected: 06/08/2018 Status: F Source: ROH[place]I PROFILE (BMP) 12:10 PM [facility] REPOSITORY TYPE CODE TESTS RESULT OUT OF RANGE REFERENCE UNITS LAB L501.0100 74-106 mg/dL Normal GLU 80 Result Comment: Please note revised GLUCOSE reference range effective 2017. LAB L501.1000 7-18 mg/dL Normal BUN 9 LAB L501.1100 0.55-1.02 mg/dL Normal CREAT,SERUM 0.59 Result Comment: The validity of the calculated GFR AND GFRAA in patients over 70 years has not been determined. Clinical correlation is essential. LAB L501.1110 >60 mL/min Normal EST GFR 116 Result Comment: Non- GFR Calc LAB L501.1115 >60 mL/min Normal EST GFR - AA 141 Result Comment: GFR Calc LAB L501.1300 10-20 RATIO Normal BUN/CRE 15.2 LAB L501.2200 8.5-10.1 mg/dL CA Normal 9.1 LAB L501.5300 136-145 mmol/L NA Normal 139 LAB L501.5600 3.5-5.1 mmol/L K Normal 4.2 LAB L501.5900 98-107 mmol/L CL Normal 104 LAB L501.6100 21.0-32.0 mmol/L Normal CO2 28.0 LAB L501.6200 5-15 Normal GAP 7 Performed By: #### L500.2500 #### [facility] [address] [place], [address] CBC-COMPLETE BLOOD CNT Collected: 06/08/2018 Status: F Source: ROHINI NO DIFF 12:10 PM [facility] REPOSITORY TYPE CODE TESTS RESULT OUT OF RANGE REFERENCE UNITS LAB L100.1000 4.4-11.0 K/mm3 Normal WBC 5.6 LAB L100.1200 4.2-5.4 M/mm3 Low RBC 3.71 LAB L100.1300 12.0-15.0 g/dl Low HGB 10.8 LAB L100.1400 37-47 % Low HCT 35.0 LAB L100.1500 81-99 fL Normal MCV 94.3 LAB L100.1600 27.0-32.0 pg Normal MCH 29.1 LAB L100.1700 32-36 g/gl Low MCHC 30.9 LAB L100.1810 11.6-14.6 % High RDW CV 15.6 LAB L100.1820 35.1-43.9 fl High RDW SD 51.8 LAB L100.1900 150-450 K/mm3 Normal PLT 368 LAB L100.2000 6.2-12.0 fl Normal MPV 9.9 Performed By: #### L100.0500, L101.9900 #### [facility] [address] [place], [place], [address] ERYTHROCYTE SED RATE Collected: 06/08/2018 Status: F Source: ROHINI 12:10 PM [facility] REPOSITORY TYPE CODE TESTS RESULT OUT OF RANGE REFERENCE UNITS LAB L102.0000 0-20 mm/hr High SED RATE 98 Performed By: #### L100.0500, L101.9900 #### [facility] [address] [place], [place], [address] CBC-COMPLETE BLOOD CNT Collected: 06/02/2018 Status: F Source: ROHINI NO DIFF 1:00 PM [facility] REPOSITORY TYPE CODE TESTS RESULT OUT OF RANGE REFERENCE UNITS LAB L100.1000 4.4-11.0 K/mm3 Normal WBC 6.6 LAB L100.1200 4.2-5.4 M/mm3 Low RBC 3.66 LAB L100.1300 12.0-15.0 g/dl Low HGB 10.5 LAB L100.1400 37-47 % Low HCT 34.9 LAB L100.1500 81-99 fL Normal MCV 95.4 LAB L100.1600 27.0-32.0 pg Normal MCH 28.7 LAB L100.1700 32-36 g/gl Low MCHC 30.1 LAB L100.1810 11.6-14.6 % High RDW CV 16.0 LAB L100.1820 35.1-43.9 fl High RDW SD 55.6 LAB L100.1900 150-450 K/mm3 Normal PLT 407 LAB L100.2000 6.2-12.0 fl Normal MPV 9.8 Performed By: #### L100.0500, L101.9900 #### [facility] [address] [place], [place], [id number] ERYTHROCYTE SED RATE Collected: 06/02/2018 Status: F Source: ROHINI 1:00 PM [facility] REPOSITORY TYPE CODE TESTS RESULT OUT OF RANGE REFERENCE UNITS LAB L102.0000 0-20 mm/hr High SED RATE 60 Performed By: #### L100.0500, L101.9900 #### [facility] [address] [place], [address] BASIC METABOLIC Collected: 06/02/2018 Status: F Source: ROHINI PROFILE (BMP) 1:00 PM [facility] REPOSITORY TYPE CODE TESTS RESULT OUT OF RANGE REFERENCE UNITS LAB L501.0100 74-106 mg/dL Low GLU 70 Result Comment: Please note revised GLUCOSE reference range effective 2017. LAB L501.1000 7-18 mg/dL Normal BUN 12 LAB L501.1100 0.55-1.02 mg/dL Normal CREAT,SERUM 0.68 Result Comment: The validity of the calculated GFR AND GFRAA in patients over 70 years has not been determined. Clinical correlation is essential. LAB L501.1110 >60 mL/min Normal EST GFR 100 Result Comment: Non- GFR Calc LAB L501.1115 >60 mL/min Normal EST GFR - AA 121 Result Comment: GFR Calc LAB L501.1300 10-20 RATIO Normal BUN/CRE 17.8 LAB L501.2200 8.5-10.1 mg/dL CA Normal 8.6 LAB L501.5300 136-145 mmol/L NA Normal 142 LAB L501.5600 3.5-5.1 mmol/L K Normal 4.1 LAB L501.5900 98-107 mmol/L CL Normal 103 LAB L501.6100 21.0-32.0 mmol/L Normal CO2 29.0 LAB L501.6200 5-15 Normal GAP 10 Performed By: #### L500.2500 #### [facility] [address] [place], [address] PLASTIC SURGERY Observed: 05/29/2018 Status: F Source: [place] VISIT REPORT 3:24 PM [facility] REPOSITORY [facility] [address] [place] [address] OFFICE VISIT Date of Service: 05/19/18 MR#: [id number] Acct: [id number] Name: ROBLES CARRASQUILLO Rep #: [id number] : 1970 Provider: Sean Stevenson MD Age/Sex: 48/F Location: [facility] Status: Signed Intake Vital Signs05/19/18 Blood Pressure 165/119 05/19/18 Blood Pressure Location Rt radial 05/19/18 Blood Pressure Position Sitting 05/19/18 Respiratory Rate 14 Intake Visit Reasons: post op surgery 05/05/18 Alining Inspector Required: No Accompanied by: None Is patient in pain?: Yes (BREAST PAIN LOTS OF PRESSURE) Pain scale (1-10): 5 Allergies codeine Allergy (Verified 05/19/18 13:15) Rash Penicillins Allergy (Verified 05/19/18 13:15) Rash NSAIDS (Non-Steroidal Anti-Inflamma Adverse Reaction (Verified 05/19/18 13:15) Other Medications Levothyroxine [Synthroid] 200 mcg PO DAILY 03/19/14 [History Confirmed 04/07/18] Calcium Carbonate/Vitamin D3 [Calcium 600-Vit D3 400 Caplet] 1 ea PO BID 08/15/15 [History Confirmed 05/05/18] Cholecalciferol (VIT D3) [Vitamin D3] 2,000 unit PO DAILY 08/15/15 [History Confirmed 05/05/18] Multivitamins,Ther W-Minerals [Multivitamin With Minerals] 1 tab PO DAILY 08/15/15 [History Confirmed 05/05/18] Nortriptyline HCl [Pamelor] 50 mg PO QHS 04/03/16 [History Confirmed 05/05/18] buPROPion XL [Wellbutrin Xl] 450 mg PO DAILY 04/18/17 [History Confirmed 05/05/18] Iron Polysaccharide Complex [Ferrex 150] 150 mg PO BID 05/01/17 [History Confirmed 05/05/18] Acetaminophen [Tylenol] 1,000 mg PO Q8H PRN #1 tab 05/06/17 [Rx Confirmed 05/05/18] Ascorbic Acid [Vitamin C] 1,000 mg PO BID 12/03/17 [History Confirmed 05/05/18] Fluoxetine HCl [Prozac] 40 mg PO DAILY 12/03/17 [History Confirmed 05/05/18] Magnesium 250 mg PO QHS 12/03/17 [History Confirmed 05/05/18] Docusate Sodium [Colace] 100 mg PO BID #60 cap 12/18/17 [Rx Confirmed 05/05/18] proMETHazine tablet [Phenergan tablet] 25 mg PO 4X/DAY PRN PRN #30 tab 12/18/17 [Rx Confirmed 05/05/18] Zolpidem Tartrate [Ambien] 10 mg PO QHS 04/07/18 [History Confirmed 05/05/18] Vancomycin IV 1,750 mg IV Q12H 40 Days #80 vial 05/06/18 [Rx] DiphenhydrAMINE [Benadryl] 50 mg PO 4X/DAY PRN cap 05/07/18 [Rx] HYDROmorphone tablet [Dilaudid] 2 - 4 mg PO 4X/DAY PRN PRN 5 Days #40 tab 05/07/18 [Rx] Cefepime HCl [Maxipime] 2 gm IV Q8 vial 05/20/18 [Rx] Diazepam [Valium] 5 mg PO 4X/DAY PRN #30 tab 05/20/18 [Rx] HYDROmorphone tablet [Dilaudid] 2 - 4 mg PO 4X/DAY PRN PRN 7 Days #60 tab 05/20/18 [Rx] Heparin Sodium,Porcine/Pf [Heparin 500 Unit/5 ml (100/ml)] 500 unit IV UD PRN syringe 05/20/18 [Rx] Vancomycin IV 1,750 mg IV Q12H vial 05/20/18 [Rx] Vancomycin IV Pharmacy to Dose 1 ea IV X1 PRN ea 05/20/18 [Rx] Vancomycin IV 2,000 mg IV Q12H #28 vial 05/21/18 [Rx] PFSH Medical History Abscess (Acute) Anemia (Acute) Anxiety (Acute) BREAST LUMP/CYST (Acute) COMPROMISED BILATERAL BREAST REDUCTION NIPPLE GRAFTS (Acute) Depression (emotion) (Acute) Disproportion of reconstructed breast (Acute) Graves disease (Acute) Hypertriglyceridemia (Acute) Hypothyroidism (Acute 2001) MRSA (methicillin resistant staph aureus) culture positive (Acute) Metabolic syndrome (Acute) NONHEALING SURGICAL WOUND RIGHT BREAST (Acute) NONHEALING ULCER LEFT BREAST AT VERTICAL INCISION (Acute) Obesity (Acute) Ovarian cyst (Acute) RECURRENT INFECTED ULCER LEFT BREAST (Acute) RECURRENT NONHEALING INFECTED MRSA ULCER RIGHT BREAST (Acute) Seasonal allergies (Acute) Hypertension (Chronic) Surgical History BILATERAL BREAST REDUCTION MAMMAPLASTY (Acute) COMPLETE THYROIDECTOMY DUE TO GRAVES' DISEASE (Acute 11/2001) Delivered by section (Acute) EXCISIONAL DEBRIDEMENT RECURRENT NONHEALING INFECTED MRSA (Acute) EXCISIONL DEBRIDEMENT NONHEALING RECURRENT INFECTED ULCER (Acute) Gastric bypass status for obesity (Acute) HERNIA REPAIR WITH MESH (Acute 2014) History of bilateral ligation of fallopian tubes (Acute 2000) History of incisional hernia repair (Acute 07/03/10) History of tonsillectomy (Acute 12/2003) INCISION AND DRAINAGE BREAST ABSCESS (Acute) MASTOTOMY RIGHT BREAST (Acute) PANICULECTOMY (Acute 04/2013) S/P complete hysterectomy (Acute) SURGICAL PREPARATION AND REVISION BREAST RECONSTRUCTION (Acute) SURGICAL PREPARATION LEFT BREAST WITH MASTECTOMY (Acute) SURGICAL PREPARATION RIGHT BREAST (Acute) Family History Father , FROM MRSA AT AGE 50 Hypertension Hyperlipidemia Acute depression Diabetes Mother Asthma Grandmother Diabetes Heart disease Grandmother Hypertension Diabetes Grandfather Parkinson disease Brother Asthma Aunt Thyroid cancer Uncle Thyroid cancer Social History household members: significant other, children number of children: 2 current occupational status: unemployed Smoking Status: Former smoker second hand exposure: No alcohol intake: current details: BEER seatbelt use: always do you feel safe at home: Yes additional social history: SUN EXPOSURE: OCCASIONALLY HPI post op surgery 05/05/18: Details: Postop visit from her recent surgery on 05/05/18 where she underwent delayed right breast reconstruction with removal of saline tissue bond runner with replacement cohesive gel implant (800 ml) and placement of Alloderm acellular dermal matrix graft inferolateral sling (132 cm2) and revision reconstructed right breast with excision nonhealing ulcer and excess mastectomy skin scar contour deformity. Comes in today with incisional pain. She has a history of MRSA and was placed on Vancomycin for home. Her operative culture was negative. She did well postop until a couple of days ago when she felt weak and nauseated. She felt febrile. Her right breast was warm with some redness. There was all of a sudden an increase in drainage with some milky looking fluid. I talked to her last night and since she was seeing me in the office today, she didn't want to go to the ED last night. So I added Levaquin antibiotics to the Vancomycin she was already on. She states she has not been feeling well. She had fevers at home as high as 101. On exam, she feels lousy and weak and nauseated. Her temp was 99.5 in the office. Her right breast was warm with increased redness and cellulitis. Some tenderness to palpation. Her incision is dry and intact. The fluid in the drain appeared milky and yellow. Her sutures were removed today without difficulty. She has labs drawn weekly because of the Vancomycin and had them done yesterday. Her WBC was 16.6. She has a history of recurrent breast infections which ultimately led to a right breast mastectomy last March. In that early postop period, she became septic with blood pressure in the 60-70s. This required an urgent I AND D with packing of the wound until healed. Culture at that time showed MRSA. Her symptomatology has worsened in the last 24 hours. I am concerned that she will have another septic episode similar to last year. With her significant symptomatology she is having along with her history of infections, it was recommended to the patient to emergently go to surgery today for I AND D of the right breast reconstruction abscess with removal of the cohesive gel implant. The breast wound may be left open and packed. If so, a VAC will be placed tomorrow. Discussed with the patient, that we will need to wait at least 6 months before considering additional breast reconstruction. Since she is already on Vancomycin, and Levaquin was started last night, will add Flagyl for the surgery. Patient was informed of the risks and complications of the procedure including alternatives to surgery. These were discussed with the patient personally. Patient voices understanding and wishes to proceed. She understands the wound may be left open and packed. Will have Hospitalists involved for medical management. Will consult ID for antibiotic assistance. If the wound is left open, she will followup at the Wound Center. Assessment AND Plan Problems 1. Infection of breast implant T85.79XA 2. Abscess of right breast N61.1 3. 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 History of MRSA infection Z86.14 6. Disproportion of reconstructed breast N65.1 7. Deformity of reconstructed breast N65.0 8. Breast removal, prophylactic Z40.01 9. Breast implant status Z98.82 10. 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 History of MRSA infection Z86.14 Disproportion of reconstructed breast N65.1 Deformity of reconstructed breast N65.0 Breast removal, prophylactic Z40.01 Breast implant status Z98.82 Former smoker Z87.891 05/29/18 1324 <Electronically signed by Sean Stevenson MD> Date Sena Stevenson MD 05/29/18 1524<Electronically signed by Huma SEE> Cosigner Signature: Date (if applicable) Huma Infante CC: OPERATIVE REPORT Observed: 05/29/2018 Status: F Source: [place] 2:17 PM [facility] REPOSITORY [facility] Medical Records Department [address] [place] [id number] Operative Report 05/19/18 2315 MR#: [id number] Acct: [id number] Name: ROBLES CARRASQUILLO Rep #: [id number] : 1970 48 From: Sean Stevenson MD PCP: Eduardo Rubio DO Status: DIS IN Y [place] [facility] [id number] Report of Operation Date of Procedure: 05/19/18 Pre-Operative Diagnosis: 1. Infected right breast implant reconstruction with abscess. 2. History of recurrent infections bilateral breasts. 3. s/p completion mastectomy right breast. 4. Acquired absence right breast. 5. Disproportion reconstructed breasts. 6. Former smoker. 7. MRSA. 8. s/p delayed right breast reconstruction with removal of saline tissue bond runner with replacement cohesive gel implant (800 ml) and placement of Alloderm acellular dermal matrix graft inferolateral sling (132 cm2) and revision reconstructed right breast with excision nonhealing ulcer and excess mastectomy skin scar contour deformity. Post-Operative Diagnosis: Same. Surgery/Procedure Performed:: Revision right breast reconstruction with incision and drainage and excisional debridement abscess with capsulectomy and removal infected breast implant. Description of Surgical Findings:: Patient had surgery on 05/05/18 where she underwent delayed right breast reconstruction with removal of saline tissue bond runner with replacement cohesive gel implant (800 ml) and placement of Alloderm acellular dermal matrix graft inferolateral sling (132 cm2) and revision reconstructed right breast with excision nonhealing ulcer and excess mastectomy skin scar contour deformity. She has a history of MRSA and was placed on Vancomycin for home. She did well postop until a couple of days ago when she felt weak and nauseated. She felt febrile. Her right breast was warm with some redness. There was all of a sudden an increase in drainage with some milky looking fluid. I talked to her last night and since she was seeing me in the office today, she didn't want to go to the ED last night. So I added Levaquin antibiotics to the Vancomycin she was already on. I saw her in the office early this afternoon. Her right breast was warm and swollen and red. Some tenderness to palpation. The fluid in the drain appeared milky and yellow. She stated she felt lousy and weak and nauseated. Her temp in the office was 99.5. She has labs drawn weekly because of the Vancomycin and had them done yesterday. Her WBC was 16.6. She has a history of recurrent breast infections which ultimately led to a right breast mastectomy last March. In that early postop period, she became septic with blood pressure in the 60-70s. This required an urgent I AND D with packing of the wound until healed. Culture at that time showed MRSA. Her symptomatology has worsened in the last 24 hours. I am concerned that she will have another septic episode similar to last year. So it was recommended to the patient to emergently go to surgery today for I AND D of the right breast reconstruction abscess with removal of the cohesive gel implant. The breast wound may be left open and packed. If so, a VAC will be placed tomorrow. Patient was informed of the risks and complications of the procedure including alternatives to surgery. These were discussed with the patient personally. Patient voices understanding and wishes to proceed. Patient understands the wound may be left open initially. Size of defect right breast - 17 x 35 x 5 cm. line ordering clinician: Rony Gotti. Type of Anesthesia:: General Specimen's removed: 1. Right breast tissue and capsule to Pathology and Microbiology. 2. MRSA Wound DNA by PCR. Drains: None. Estimated Blood Loss (mL): 100 ml. Description of Procedure: Patient was taken to OR in supine position and was placed under general anesthesia. The drain was then removed before prepping. There was pus in the drain and after it was pulled, there was pus that was leaking through the drain hole. Her breasts were prepped and draped in the usual fashion. Using scissors, I opened up the previous incision in its entirety. A lot of fat necrosis was present. A lot of milky pus was present along with a filmy exudate. The biologic graft was removed and the cohesive gel implant was removed without evidence of compromise or injury. There was capsular tissue that was covered with this filmy exudate. A capsulectomy was performed. Using a large curette, the chest wall was sharply debrided along with the sides of the wound. Good bleeding was seen after the excisional debridement. The extensive fat necrosis was sharply excised and debrided. Some of this debrided tissue and some of the capsulectomy and some of the purulent filmy exudate was sent to Microbiology for culture. The rest of the tissue was sent to pathology for analysis to rule out carcinoma. A MRSA Wound DNA by PCR was also done. She has a history of MRSA. The wound was copiously irrigated with saline. Hemostasis was obtained with electrocautery. The size of the wound after incision and drainage and excisional debridement was 17 x 35 x 5 cm. The wound was dressed with Mepitel nonadherent dressing followed by Kerlix gauze with Betadine and then followed by dry Kerlix gauze followed by ABD pads and a compression chest wall binder. Patient tolerated the procedure well and was sent to PACU in satisfactory condition. She will be admitted upstairs for continued postop care. The VAC will be applied tomorrow. Will have the Hospitalist Group consulted for medica management. Will have Infectious Diseases consulted for antibiotic management. She already has a PICC line in and was getting IV Vancomycin at home when this infection started. Anticipate increased metabolic demands from the infection, surgery, and size of the wound. Will check a Prealbumin and encourage nutritional supplementation with protein to help the healing process. After discharge, will followup at the Wound Center. Grafts/Implants Used: None. - Complications None. - Admit VTE Documentation VTE Present on Admission: No VTE Mechan Device Prophylaxis: SCD's VTE Pharm Prophylaxis ordered?: Yes Code Visit Surgery Charges CPT - 84014 ICD-10 - N61.1, T85.79xA, Z90.11, N65.1, N65.0, Z86.14, Z98.82, Z40.01 17455 N61.1, T85.79xA, Z90.11, N65.1, N65.0, Z86.14, Z98.82, Z40.01 05/29/18 1417 <Electronically signed by Sean Stevenson MD> Date Sean Stevenson MD CC: Jonn Pedroza MD; Sean Stevenson MD; Eduardo Rubio DO; Alexandre Ivan MD; Matty Quiroz MD; [facility] Signed PROGRESS Observed: 05/28/2018 Status: COMPLETED Source: [place] 11:16 AM [facility] REPOSITORY [facility] ID: [id number] Author: Rhona Montiel ([facility]) Matthew Service: (none) Author Type: Nurse Practitioner Type: Progress Notes Filed: 05/28/2018 11:25 AM Note Text: HPI/CC: Robles Carrasquillo is a 48 year old female who presents for medication refill. Patient is being followed by Dr. Stevenson for chronic breast infections. Required multiple surgical interventions resulting and right sided mastectomy. Currently patient has a VAC to right chest and PICC to left UE for IV antibiotics. Reports managing pain through Dr. Stevenson. VAC dressing changes by [facility], will be seeing wound clinic as well. Thyroid: recent medication adjustments d/t elevated TSH Denies CP, SOB, dizziness, lightheadedness, weakness, palpitations, fever, chills, N/V, change in appetite. ROS as above, otherwise non-contributory. Reviewed resent labs and Dr. Stevenson notes. Reviewed PMHx, PSHx, social Hx, medications and allergies. PHYSICAL EXAMINATION: BP 142/86 Pulse 84 Wt (!) 137.4 kg (303 lb) LMP 01/31/2007 BMI 48.17 kg/m? General appearance:alert, in no acute distress, well-hydrated, well nourished. and Morbidly obese Skin: Skin color, texture, turgor normal, no suspicious rashes or lesions- VAC dressing to right upper chest. Lungs: Lungs clear to auscultation. No wheezing, rhonchi, rales Heart: RRR without murmur, gallop, or rubs. No ectopy ASSESSMENT/PLAN: 1. Breast infection in female - ICD9: 611.0, ICD10: N61.0 (primary diagnosis) - follow with Dr. Stevenson - continue [facility] 2. Acquired hypothyroidism - ICD9: 244.9, ICD10: E03.9 - check TSH - f/u in 3 months and PRN Rhona Castro APRN.[employer] THYROID STIM HORMONE Collected: 05/27/2018 Status: F Source: ROHINI (TSH) 12:00 AM [facility] REPOSITORY TYPE CODE TESTS RESULT OUT OF RANGE REFERENCE UNITS LAB L501.9520 0.358-3.74 uIU/mL High TSH 19.00 Performed By: #### L501.9520 #### [facility] [address] [place], [address] CNOV Observed: 05/26/2018 Status: COMPLETED Source: [place] 2:20 PM [facility] REPOSITORY Office Visit (FAMPWS) ROBLES CARRASQUILLO ([id number]) 1970 F Date Time Provider Department 05/26/18 2:20 PM RHONA CASTRO (JUNE) [place]AD[place] During your visit today, we recorded the following information about you: Pulse Blood pressure Weight 84/minute 142/86 137.4 kg Rhona Castro APRN.CNP 05/28/2018 11:25 AM Signed HPI/CC: Robles Carrasquillo is a 48 year old female who presents for medication refill. Patient is being followed by Dr. Stevenson for chronic breast infections. Required multiple surgical interventions resulting and right sided mastectomy. Currently patient has a VAC to right chest and PICC to left UE for IV antibiotics. Reports managing pain through Dr. Stevenson. VAC dressing changes by [facility], will be seeing wound clinic as well. Thyroid: recent medication adjustments d/t elevated TSH Denies CP, SOB, dizziness, lightheadedness, weakness, palpitations, fever, chills, N/V, change in appetite. ROS as above, otherwise non-contributory. Reviewed resent labs and Dr. Stevenson notes. Reviewed PMHx, PSHx, social Hx, medications and allergies. PHYSICAL EXAMINATION: BP 142/86 Pulse 84 Wt (!) 137.4 kg (303 lb) LMP 01/31/2007 BMI 48.17 kg/m? General appearance:alert, in no acute distress, well-hydrated, well nourished. and Morbidly obese Skin: Skin color, texture, turgor normal, no suspicious rashes or lesions- VAC dressing to right upper chest. Lungs: Lungs clear to auscultation. No wheezing, rhonchi, rales Heart: RRR without murmur, gallop, or rubs. No ectopy ASSESSMENT/PLAN: 1. Breast infection in female - ICD9: 611.0, ICD10: N61.0 (primary diagnosis) - follow with Dr. Stevenson - continue [facility] 2. Acquired hypothyroidism - ICD9: 244.9, ICD10: E03.9 - check TSH - f/u in 3 months and PRN Rhona Castro APRN.CNP Referring Provider: SELF [[id number]] Allergies As of Date: 05/26/2018 Noted Allergy Reaction ALEVE (NAPROXEN SODIUM) 07/18/2006 8 - GI Upset CODEINE 07/18/2006 2 - Rash 8 - GI Upset PENICILLINS 07/18/2006 4 - Hives Date Reviewed: 05/26/2018 Reviewed by: Lloyd Gibbs LPN - Fully Assessed Primary Visit Diagnosis:Breast infection in female [N61.0] Other Visit Diagnosis:Acquired hypothyroidism [E03.9] Order(s):COMPOUNDED PRESCRIPTIONObtain TSH Fax results to Rhona Castro [employer] to [phone]: 1 EachRfl: 0 Prescriptions as of 05/26/2018 Sig: POLY-IRON 150 MG IRON CAPSULE take 1 capsule by mouth twice* BUPROPION XL 300 MG 24 HR TAB take 1 tablet by mouth once d* NORTRIPTYLINE 50 MG CAPSULE take 1 capsule by mouth at be* LEVOTHYROXINE 200 MCG TABLET Take 1 tablet by mouth daily * FLUOXETINE 40 MG CAPSULE take 1 capsule by mouth once * MAGNESIUM 250 MG TABLET Take 1 tablet by mouth daily * CHOLECALCIFEROL (VITAMIN D3) * Take 1 capsule by mouth once * PROMETHAZINE 25 MG TABLET take 1 tablet by mouth every * BUPROPION XL 150 MG TAB Take 1 tablet by mouth once d* HYDROMORPHONE 2 MG TABLET Take 1-2 tablets 4 times javon* DIAZEPAM 5 MG TABLET Take 1 tablet by mouth twice * CALCIUM 500 + D (D3) ORAL Take by mouth three times da* CHOLECALCIFEROL (VITAMIN D3) * Take 1,000 Units by mouth onc* VITAMIN B COMPLEX TABLET Take 1 tablet by mouth once d* BIOTIN 2,500 MCG TABLET Take 2,500 mcg by mouth once * THERAPEUTIC MULTIVITAMIN TABL* Take one(1) tablet daily. COMPOUNDED PRESCRIPTION Obtain TSH Fax results to * ZOLPIDEM 10 MG TABLET take 1 tablet by mouth at bed* COMPOUNDED PRESCRIPTION Obtain STAT CBC with diff, TI* COMPOUNDED PRESCRIPTION Obtain TSH, T4 and T4 Dx: Hy* OXYCODONE-ACETAMINOPHEN 5 MG-* Take 1 tablet by mouth every * Problem List As Of Date 05/26/2018 Noted Resolved METRORRHAGIA [N92.1] INVALID FOR* OVARIAN CYST NEC/NOS [N83.209] INVALID FOR* IRREGULAR MENSTRUATION [N92.6] INVALID FOR* Recurrent major depression in partial remission*INVALID FOR* HYPOTHYROIDISM NOS [E03.9] INVALID FOR*02/27/2007 Acquired hypothyroidism [E03.9] INVALID FOR* MORBID OBESITY [E66.01] INVALID FOR* Abdominal pannus [E65] INVALID FOR* Breast abscess [N61.1] INVALID FOR* Prescriptions ordered this encounter Disp Refills Start End COMPOUNDED PRESCRIPTION 1 Ea* 0 05/26/2018 Class: Print RX Sig: Obtain TSH Fax results to Rhona Castro CNP to [phone] Encounter Status:Closed by RHONA CASTRO CNP on 05/28/18 ERYTHROCYTE SED RATE Collected: 05/25/2018 Status: F Source: ROHINI 10:32 AM [facility] REPOSITORY TYPE CODE TESTS RESULT OUT OF RANGE REFERENCE UNITS LAB L102.0000 0-20 mm/hr High SED RATE 67 Performed By: #### L101.9900, L100.0500 #### [facility] [address] [place], [place], [id number] CBC-COMPLETE BLOOD CNT Collected: 05/25/2018 Status: F Source: ROHINI NO DIFF 10:32 AM [facility] REPOSITORY TYPE CODE TESTS RESULT OUT OF RANGE REFERENCE UNITS LAB L100.1000 4.4-11.0 K/mm3 Normal WBC 5.0 LAB L100.1200 4.2-5.4 M/mm3 Low RBC 3.35 LAB L100.1300 12.0-15.0 g/dl Low HGB 10.0 LAB L100.1400 37-47 % Low HCT 32.2 LAB L100.1500 81-99 fL Normal MCV 96.1 LAB L100.1600 27.0-32.0 pg Normal MCH 29.9 LAB L100.1700 32-36 g/gl Low MCHC 31.1 LAB L100.1810 11.6-14.6 % High RDW CV 15.7 LAB L100.1820 35.1-43.9 fl High RDW SD 53.0 LAB L100.1900 150-450 K/mm3 Normal PLT 389 LAB L100.2000 6.2-12.0 fl Normal MPV 9.7 Performed By: #### L101.9900, L100.0500 #### [facility] [address] [place], [address] BASIC METABOLIC Collected: 05/25/2018 Status: F Source: ROHINI PROFILE (BMP) 10:32 AM [facility] REPOSITORY TYPE CODE TESTS RESULT OUT OF RANGE REFERENCE UNITS LAB L501.0100 74-106 mg/dL Normal GLU 93 Result Comment: Please note revised GLUCOSE reference range effective 2017. LAB L501.1000 7-18 mg/dL Normal BUN 7 LAB L501.1100 0.55-1.02 mg/dL Normal CREAT,SERUM 0.59 Result Comment: The validity of the calculated GFR AND GFRAA in patients over 70 years has not been determined. Clinical correlation is essential. LAB L501.1110 >60 mL/min Normal EST GFR 116 Result Comment: Non- GFR Calc LAB L501.1115 >60 mL/min Normal EST GFR - AA 141 Result Comment: GFR Calc LAB L501.1300 10-20 RATIO Normal BUN/CRE 11.9 LAB L501.2200 8.5-10.1 mg/dL CA Normal 8.5 LAB L501.5300 136-145 mmol/L NA Normal 142 LAB L501.5600 3.5-5.1 mmol/L K Normal 4.3 LAB L501.5900 98-107 mmol/L CL Normal 102 LAB L501.6100 21.0-32.0 mmol/L Normal CO2 31.0 LAB L501.6200 5-15 Normal GAP 9 Performed By: #### L500.2500 #### [facility] [address] [place], [place], [address] VANCOMYCIN, TROUGH Collected: 05/25/2018 Status: F Source: ROHINI LEVEL 10:32 AM [facility] REPOSITORY Order Comment: Time Medication is to be Given? 0000 TYPE CODE TESTS RESULT OUT OF RANGE REFERENCE UNITS LAB L501.8820 5.0-15.0 ug/mL Normal VANCO, TROUGH 9.2 Result Comment: VANCOMYCIN STANDARED DRUG THERAPY TROUGH LEVEL: 5.0 - 15.0 mg/L VANCOMYCIN HIGH INTENSITY THERAPY TROUGH LEVEL: 15.0 - 20.0 mg/L High Intensity therapy recommended for serious life threatening infections include: - Meningitis -Endocarditis -Pneumonia (Ventilator/Healtcare Associated) -Sepsis PLEASE CONTACT PHARMACY SERVICES (#[id number]) FOR INTERPRETATION OF RESULTS. Performed By: #### L501.8820 #### [facility] [address] [place], [address] PLASTIC SURGERY Observed: 05/25/2018 Status: F Source: ROHINI VISIT REPORT 10:31 AM [facility] REPOSITORY [facility] [address] [place] [address] OFFICE VISIT Date of Service: 05/12/18 MR#: [id number] Acct: [id number] Name: ROBLES CARRASQUILLO Rep #: [id number] : 1970 Provider: Sean Stevenson MD Age/Sex: 48/F Location: [facility] Status: Signed Intake Vital Signs05/12/18 Height 5 ft 6 in 05/12/18 Weight: 294 lb 2 oz Intake Visit Reasons: post op surgery 05/05/2018 Alining Inspector Required: No Accompanied by: Daughter Is patient in pain?: Yes (right axilla) Pain scale (1-10): 5 Allergies codeine Allergy (Verified 05/19/18 13:15) Rash Penicillins Allergy (Verified 05/19/18 13:15) Rash NSAIDS (Non-Steroidal Anti-Inflamma Adverse Reaction (Verified 05/19/18 13:15) Other Medications Levothyroxine [Synthroid] 200 mcg PO DAILY 03/19/14 [History Confirmed 04/07/18] Calcium Carbonate/Vitamin D3 [Calcium 600-Vit D3 400 Caplet] 1 ea PO BID 08/15/15 [History Confirmed 05/05/18] Cholecalciferol (VIT D3) [Vitamin D3] 2,000 unit PO DAILY 08/15/15 [History Confirmed 05/05/18] Multivitamins,Ther W-Minerals [Multivitamin With Minerals] 1 tab PO DAILY 08/15/15 [History Confirmed 05/05/18] Nortriptyline HCl [Pamelor] 50 mg PO QHS 04/03/16 [History Confirmed 05/05/18] buPROPion XL [Wellbutrin Xl] 450 mg PO DAILY 04/18/17 [History Confirmed 05/05/18] Iron Polysaccharide Complex [Ferrex 150] 150 mg PO BID 05/01/17 [History Confirmed 05/05/18] Acetaminophen [Tylenol] 1,000 mg PO Q8H PRN #1 tab 05/06/17 [Rx Confirmed 05/05/18] Ascorbic Acid [Vitamin C] 1,000 mg PO BID 12/03/17 [History Confirmed 05/05/18] Fluoxetine HCl [Prozac] 40 mg PO DAILY 12/03/17 [History Confirmed 05/05/18] Magnesium 250 mg PO QHS 12/03/17 [History Confirmed 05/05/18] Docusate Sodium [Colace] 100 mg PO BID #60 cap 12/18/17 [Rx Confirmed 05/05/18] proMETHazine tablet [Phenergan tablet] 25 mg PO 4X/DAY PRN PRN #30 tab 12/18/17 [Rx Confirmed 05/05/18] Zolpidem Tartrate [Ambien] 10 mg PO QHS 04/07/18 [History Confirmed 05/05/18] Vancomycin IV 1,750 mg IV Q12H 40 Days #80 vial 05/06/18 [Rx] DiphenhydrAMINE [Benadryl] 50 mg PO 4X/DAY PRN cap 05/07/18 [Rx] HYDROmorphone tablet [Dilaudid] 2 - 4 mg PO 4X/DAY PRN PRN 5 Days #40 tab 05/07/18 [Rx] Cefepime HCl [Maxipime] 2 gm IV Q8 vial 05/20/18 [Rx] Diazepam [Valium] 5 mg PO 4X/DAY PRN #30 tab 05/20/18 [Rx] HYDROmorphone tablet [Dilaudid] 2 - 4 mg PO 4X/DAY PRN PRN 7 Days #60 tab 05/20/18 [Rx] Heparin Sodium,Porcine/Pf [Heparin 500 Unit/5 ml (100/ml)] 500 unit IV UD PRN syringe 05/20/18 [Rx] Vancomycin IV 1,750 mg IV Q12H vial 05/20/18 [Rx] Vancomycin IV Pharmacy to Dose 1 ea IV X1 PRN ea 05/20/18 [Rx] Vancomycin IV 2,000 mg IV Q12H #28 vial 05/21/18 [Rx] PFSH Medical History Abscess (Acute) Anemia (Acute) Anxiety (Acute) BREAST LUMP/CYST (Acute) COMPROMISED BILATERAL BREAST REDUCTION NIPPLE GRAFTS (Acute) Depression (emotion) (Acute) Disproportion of reconstructed breast (Acute) Graves disease (Acute) Hypertriglyceridemia (Acute) Hypothyroidism (Acute 2001) MRSA (methicillin resistant staph aureus) culture positive (Acute) Metabolic syndrome (Acute) NONHEALING SURGICAL WOUND RIGHT BREAST (Acute) NONHEALING ULCER LEFT BREAST AT VERTICAL INCISION (Acute) Obesity (Acute) Ovarian cyst (Acute) RECURRENT INFECTED ULCER LEFT BREAST (Acute) RECURRENT NONHEALING INFECTED MRSA ULCER RIGHT BREAST (Acute) Seasonal allergies (Acute) Hypertension (Chronic) Surgical History BILATERAL BREAST REDUCTION MAMMAPLASTY (Acute) COMPLETE THYROIDECTOMY DUE TO GRAVES' DISEASE (Acute 11/2001) Delivered by section (Acute) EXCISIONAL DEBRIDEMENT RECURRENT NONHEALING INFECTED MRSA (Acute) EXCISIONL DEBRIDEMENT NONHEALING RECURRENT INFECTED ULCER (Acute) Gastric bypass status for obesity (Acute) HERNIA REPAIR WITH MESH (Acute 2014) History of bilateral ligation of fallopian tubes (Acute 2000) History of incisional hernia repair (Acute 07/03/10) History of tonsillectomy (Acute 12/2003) INCISION AND DRAINAGE BREAST ABSCESS (Acute) MASTOTOMY RIGHT BREAST (Acute) PANICULECTOMY (Acute 04/2013) S/P complete hysterectomy (Acute) SURGICAL PREPARATION AND REVISION BREAST RECONSTRUCTION (Acute) SURGICAL PREPARATION LEFT BREAST WITH MASTECTOMY (Acute) SURGICAL PREPARATION RIGHT BREAST (Acute) Family History Father , FROM MRSA AT AGE 50 Hypertension Hyperlipidemia Acute depression Diabetes Mother Asthma Grandmother Diabetes Heart disease Grandmother Hypertension Diabetes Grandfather Parkinson disease Brother Asthma Aunt Thyroid cancer Uncle Thyroid cancer Social History household members: significant other, children number of children: 2 current occupational status: unemployed Smoking Status: Former smoker second hand exposure: No alcohol intake: current details: BEER seatbelt use: always do you feel safe at home: Yes additional social history: SUN EXPOSURE: OCCASIONALLY HPI post op surgery 05/05/2018: Details: postop visit from her recent surgery on 05/05/18 where she underwent delayed right breast reconstruction with removal of saline tissue bond runner with replacement cohesive gel implant (800 ml) and placement of Alloderm acellular dermal matrix graft inferolateral sling (132 cm2) and revision reconstructed right breast with excision nonhealing ulcer and excess mastectomy skin scar contour deformity. Comes in today with incisional pain. She denies any fever. Her incisions are dry and intact. Some mild redness seen where the sutures are located. The heating pad burn is stable and healed. Right breast shows good contour. It is smaller than the left breast. I had placed the biggest implant short of custom ordering a larger size. Right now she is not interested in reducing the left breast any further for symmetry purposes because of her history of infection. I told her she can always change her mind in the future. She states she would like to wait at least a year. Pathology was discussed with the patient. It showed chronic inflammation, fibrosis, granulation tissue reaction and reactive changes. Operative culture was discussed with the patient. The culture was negative. Drainage has been about 50 ml/drain/day. One drain was removed today without difficulty. Will remove the other drain in 1-2 weeks. Keep head elevated. Continue surgical bra. Continue Vancomycin for 6 weeks because of her history of MRSA. Renewed her Dilaudid (40 tabs) for pain. Follow up in one week for suture removal and for drain removal. Assessment AND Plan Problems 1. Abscess of right breast N61.1 2. 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 Disproportion of reconstructed breast N65.1 5. History of MRSA infection Z86.14 6. Deformity of reconstructed breast N65.0 7. Breast removal, prophylactic Z40.01 8. Former smoker Z87.891 Medications Discontinued: hydromorphone (Dilaudid) Disco2 mg PO 4X/DAY PRN pain N61.1, N65.0, N65.1, Z86.14, Z90. 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 Disproportion of reconstructed breast N65.1 History of MRSA infection Z86.14 Deformity of reconstructed breast N65.0 Breast removal, prophylactic Z40.01 Former smoker Z87.891 05/24/18 2228 <Electronically signed by Sean Stevenson MD> Date Sean Stevenson MD 05/25/18 1031<Electronically signed by Huma SEE> Cosigner Signature: Date (if applicable) Huma Infante CC: DISCHARGE SUMMARY Observed: 05/25/2018 Status: F Source: [place] 1:30 AM [facility] REPOSITORY [facility] Medical Records Department [address] [place] [address] Discharge Summary 05/21/18 1735 MR#: [id number] Acct: [id number] Name: ROBLES CARRASQUILLO Rep #: [id number] : 1970 48 From: Sean Stevenson MD PCP: Eduardo Rubio DO Status: DIS IN Y [place] [id number] Discharge Date and Diagnosis Date of Admission: 05/19/18 Date of Discharge: 05/21/18 - Primary Discharge Diagnosis Infected right breast implant reconstruction with abscess. - Secondary Discharge Diagnosis History of recurrent infections bilateral breasts. Acquired absence right breast. MRSA. Breast removal, prophylactic excess mastectomy skin scar contour deformity reconstructed right breast nonhealing ulcer right breast reconstruction History of MRSA infection History of Graves' disease treated with radiation ablation HTN (hypertension) Anemia Personal hx of gastric bypass Morbid obesity Depression disproportion reconstructed breasts Abscess of right breast Abscess of left breast bilateral macromastia Neck pain Back pain, thoracic inframammary intertrigo bilateral shoulder pain from the weight of her breasts on her bra straps Former smoker Anxiety Hospital Course and Treatment Imaging Results: None. Consultations 05/20/18 06:46 Consult: Onc/Wound/labor relations officer Routine Comment: Reason for Consult:: wound vac placement Dr. Ivan from [facility]. Dr. Quiroz from Infectious Diseases. Operations: - - 05/19/18 - Revision right breast reconstruction with incision and drainage and excisional debridement abscess with capsulectomy and removal infected breast implant. Procedures: Wound vac placement Summary of Care Provided: Patient had surgery on 05/05/18 where she underwent delayed right breast reconstruction with removal of saline tissue bond runner with replacement cohesive gel implant (800 ml) and placement of Alloderm acellular dermal matrix graft inferolateral sling (132 cm2) and revision reconstructed right breast with excision nonhealing ulcer and excess mastectomy skin scar contour deformity. She has a history of MRSA and was placed on Vancomycin for home. She did well postop until a couple of days ago when she felt weak and nauseated. She felt febrile. Her right breast was warm with some redness. There was all of a sudden an increase in drainage with some milky looking fluid. I talked to her last night and since she was seeing me in the office today, she didn't want to go to the ED last night. So I added Levaquin antibiotics to the Vancomycin she was already on. I saw her in the office early this afternoon. Her right breast was warm and swollen and red. Some tenderness to palpation. The fluid in the drain appeared milky and yellow. She stated she felt lousy and weak and nauseated. Her temp in the office was 99.5. She has labs drawn weekly because of the Vancomycin and had them done yesterday. Her WBC was 16.6. She has a history of recurrent breast infections which ultimately led to a right breast mastectomy last March. In that early postop period, she became septic with blood pressure in the 60-70s. This required an urgent I AND D with packing of the wound until healed. Culture at that time showed MRSA. Her symptomatology has worsened in the last 24 hours. I am concerned that she will have another septic episode similar to last year. So it was recommended to the patient to emergently go to surgery today for I AND D of the right breast reconstruction abscess with removal of the cohesive gel implant. The breast wound may be left open and packed. If so, a VAC will be placed tomorrow. Discussed with the patient, that we will need to wait at least 6 months before considering additional breast reconstruction. Since she is already on Vancomycin, and Levaquin was started last night, will add Flagyl for the surgery. Patient was informed of the risks and complications of the procedure including alternatives to surgery. These were discussed with the patient personally. Patient voices understanding and wishes to proceed. She understands the wound may be left open and packed. Will have Hospitalists involved for medical management. Will consult ID for antibiotic assistance. If the wound is left open, she will followup at the [facility]. Later that evening on 05/19/18, the patient went for emergency surgery and underwent revision right breast reconstruction with incision and drainage and excisional debridement abscess with capsulectomy and removal infected breast implant. Due to the severity of the infection, the wound was left open and packed with Betadine gauze. She tolerated the procedure well. The VAC was placed the next day. Infectious Diseases was consulted. They changed the antibiotics to Vancomycin and Cefepime and stopped the Levaquin and Flagyl. The operative culture showed Gram negative igor. When it become identified, antibiotic modification may be necessary. The [facility] was consulted for medical management. Her WBC normalized after the surgery from 16.6 down to 6.1 at discharge. Her Prealbumin was 12.6. Encouraged nutritional supplementation with protein to help the healing process. On the second postop day, the VAC was approved and she was discharged home in satisfactory condition. She was already getting Vancomycin at home and Cefepime was added. Wrote scripts for Dilaudid for pain (60 tabs) and for Valium for spasm (30 tabs). The VAC will be changed three times per week at 150 mmHg continuous suction. Will reassess in a couple of weeks to determine if additional antibiotics are needed. Followup at [facility] Center in a couple of weeks. Discharge Diet: No Restrictions, - - encourage nutritional supplementation with protein to help the healing process. Discharge Activity: May not drive while taking narcotic pain medications., May Shower - on the days the vac is changed. May shower in (days): 2 - on the days the vac is changed. May resume sexual activity in: No Restrictions Weight Bearing Status: Weight bearing as tolerated Keep extremity elevated above heart level: - - elevate head. Call your doctor if your incision/area has: Continuous Slow Oozing, Sudden Increased Bleeding, Increased Pain/ Swelling, Increased Redness, Foul Smelling Discharge, Swelling at the incision site Call your doctor if you observe: Fever of 101 or Higher, Coldness, Increased Pain, Shortness of breath, Chest pain, Calf discomfort, Uncontrolled pain Suture Line Care: - - changes three times per week at 150 mmHg continuous suction. Change Dressing in (Days):: 2 - vac changes three times per week. Cleanse incision/area with: Soap AND Water - masy cleanse the wound with soap and water on the days the vac is changed. Additional Dressing/Incision Instructions:: Home Health to assist with VAC dressing changes three times per week at 150 mmHg continuous suction. Please cleanse the wound with soap and water at the time of the VAC dressing change. Home Medications: Medications to take at Discharge Levothyroxine [Synthroid] 200 mcg PO DAILY 03/19/14 Calcium Carbonate/Vitamin D3 [Calcium 600-Vit D3 400 Caplet] 1 ea PO BID 08/15/15 Cholecalciferol (VIT D3) [Vitamin D3] 2,000 unit PO DAILY 08/15/15 Multivitamins,Ther W-Minerals [Multivitamin With Minerals] 1 tab PO DAILY 08/15/15 Nortriptyline HCl [Pamelor] 50 mg PO QHS 04/03/16 buPROPion XL [Wellbutrin Xl] 450 mg PO DAILY 04/18/17 Iron Polysaccharide Complex [Ferrex 150] 150 mg PO BID 05/01/17 Acetaminophen [Tylenol] 1,000 mg PO Q8H PRN #1 tab 05/06/17 Ascorbic Acid [Vitamin C] 1,000 mg PO BID 12/03/17 Fluoxetine HCl [Prozac] 40 mg PO DAILY 12/03/17 Magnesium 250 mg PO QHS 12/03/17 Docusate Sodium [Colace] 100 mg PO BID #60 cap 12/18/17 proMETHazine tablet [Phenergan tablet] 25 mg PO 4X/DAY PRN PRN #30 tab 12/18/17 Zolpidem Tartrate [Ambien] 10 mg PO QHS 04/07/18 Vancomycin IV 1,750 mg IV Q12H 40 Days #80 vial 05/06/18 DiphenhydrAMINE [Benadryl] 50 mg PO 4X/DAY PRN capsule 05/07/18 HYDROmorphone tablet [Dilaudid] 2 - 4 mg PO 4X/DAY PRN PRN 5 Days #40 tab 05/07/18 Cefepime HCl [Maxipime] 2 gm IV Q8 vial 05/20/18 Diazepam [Valium] 5 mg PO 4X/DAY PRN #30 tab 05/20/18 HYDROmorphone tablet [Dilaudid] 2 - 4 mg PO 4X/DAY PRN PRN 7 Days #60 tab 05/20/18 Heparin Sodium,Porcine/Pf [Heparin 500 Unit/5 ml (100/ml)] 500 unit IV UD PRN syringe 05/20/18 Vancomycin IV 1,750 mg IV Q12H vial 05/20/18 Vancomycin IV Pharmacy to Dose 1 ea IV X1 PRN each 05/20/18 Vancomycin IV 2,000 mg IV Q12H #28 vial 05/21/18 Following Prescrptions Were Given to Patient: HYDROmorphone tablet [Dilaudid] 2 - 4 mg PO 4X/DAY PRN PRN 7 Days #60 tab PRN Reason: Severe Pain (6-1010) Vancomycin IV 2,000 mg IV Q12H #28 vial Diazepam [Valium] 5 mg PO 4X/DAY PRN #30 tab PRN Reason: spasms Primary Care Physician: Eduardo Perkins DO [Primary Care Provider] - Please Follow Up With: Sean Stevenson MD When: 2 weeks at the wound center. call [phone] for appt. Disposition: Home with Home Health Minutes spent on discharge:: 35 Patient Condition:: Stable Medical Necessity - Tobacco Use Smoking Status: Former smoker Meaningful Use Info Meaningful Use Diagnoses (Choose all that apply): None applicable 05/25/18 0130 <Electronically signed by Sean Stevenson MD> Date Sean Stevenson MD Cosigner Signature (if applicable): Date CC: Jonn Pedroza MD; Sean Stevenson MD; Eduardo Rubio DO; Alexandre Ivan MD; Matty Quiroz MD; Wound Care Center Signed DISCHARGE INSTRUCTION Observed: 05/23/2018 Status: F Source: ROHINI 9:35 PM [facility] REPOSITORY [facility] Medical Records Department [address] [place] [address] Instructions for Home/Discharge Instructions 05/20/18 1543 MR#: [id number] Acct: [id number] Name: ROBLES CARRASQUILLO Mary Ellen Rep #: [id number] : 1970 48 From: Sean Stevenson MD PCP: Eduardo Rubio DO Status: DIS IN You will use the following diet at home:: No restrictions, Other - encourage nutritional supplementation with protein to help the healing process. Discharge Activity: May not drive while taking narcotic pain medications., May Shower - on the days the vac is changed. May shower in (days): 2 - on the days the vac is changed. May resume sexual activity in: No Restrictions Weight Bearing Status: Weight bearing as tolerated Keep extremity elevated above heart level: - - elevate head. Call your doctor if your incision/area has: Continuous Slow Oozing, Sudden Increased Bleeding, Increased Pain/ Swelling, Increased Redness, Foul Smelling Discharge, Swelling at the incision site Call your doctor if you observe: Fever of 101 or Higher, Coldness, Increased Pain, Shortness of breath, Chest pain, Calf discomfort, Uncontrolled pain Suture Line Care: - - changes three times per week at 150 mmHg continuous suction. Change Dressing in (Days):: 2 - vac changes three times per week. Cleanse incision/area with: Soap AND Water - masy cleanse the wound with soap and water on the days the vac is changed. Additional Dressing/Incision Instructions:: Home Health to assist with VAC dressing changes three times per week at 150 mmHg continuous suction. Please cleanse the wound with soap and water at the time of the VAC dressing change. Allergies/Adverse Reactions: Allergies codeine Allergy (Verified 05/19/18 13:15) Rash Penicillins Allergy (Verified 05/19/18 13:15) Rash NSAIDS (Non-Steroidal Anti-Inflamma Adverse Reaction (Verified 05/19/18 13:15) Other UNABLE TO TAKE DUE TO WEIGHT LOSS SURGERY Medications to take at Discharge Levothyroxine [Synthroid] 200 mcg PO DAILY 03/19/14 Calcium Carbonate/Vitamin D3 [Calcium 600-Vit D3 400 Caplet] 1 ea PO BID 08/15/15 Cholecalciferol (VIT D3) [Vitamin D3] 2,000 unit PO DAILY 08/15/15 Multivitamins,Ther W-Minerals [Multivitamin With Minerals] 1 tab PO DAILY 08/15/15 Nortriptyline HCl [Pamelor] 50 mg PO QHS 04/03/16 buPROPion XL [Wellbutrin Xl] 450 mg PO DAILY 04/18/17 Iron Polysaccharide Complex [Ferrex 150] 150 mg PO BID 05/01/17 Acetaminophen [Tylenol] 1,000 mg PO Q8H PRN #1 tab 05/06/17 Ascorbic Acid [Vitamin C] 1,000 mg PO BID 12/03/17 Fluoxetine HCl [Prozac] 40 mg PO DAILY 12/03/17 Magnesium 250 mg PO QHS 12/03/17 Docusate Sodium [Colace] 100 mg PO BID #60 cap 12/18/17 proMETHazine tablet [Phenergan tablet] 25 mg PO 4X/DAY PRN PRN #30 tab 12/18/17 Zolpidem Tartrate [Ambien] 10 mg PO QHS 04/07/18 Vancomycin IV 1,750 mg IV Q12H 40 Days #80 vial 05/06/18 DiphenhydrAMINE [Benadryl] 50 mg PO 4X/DAY PRN capsule 05/07/18 HYDROmorphone tablet [Dilaudid] 2 - 4 mg PO 4X/DAY PRN PRN 5 Days #40 tab 05/07/18 Cefepime HCl [Maxipime] 2 gm IV Q8 vial 05/20/18 Diazepam [Valium] 5 mg PO 4X/DAY PRN #30 tab 05/20/18 HYDROmorphone tablet [Dilaudid] 2 - 4 mg PO 4X/DAY PRN PRN 7 Days #60 tab 05/20/18 Heparin Sodium,Porcine/Pf [Heparin 500 Unit/5 ml (100/ml)] 500 unit IV UD PRN syringe 05/20/18 Vancomycin IV 1,750 mg IV Q12H vial 05/20/18 Vancomycin IV Pharmacy to Dose 1 ea IV X1 PRN each 05/20/18 Vancomycin IV 2,000 mg IV Q12H #28 vial 05/21/18 The following prescriptions were given: HYDROmorphone tablet [Dilaudid] 2 - 4 mg PO 4X/DAY PRN PRN 7 Days #60 tab PRN Reason: Severe Pain (6-07/08) Vancomycin IV 2,000 mg IV Q12H #28 vial Diazepam [Valium] 5 mg PO 4X/DAY PRN #30 tab PRN Reason: spasms Primary Care Physician: Eduardo Perkins DO [Primary Care Provider] - Test Results: Test results from this visit will be discussed in further detail at your follow-up appointment, if applicable. Please Follow Up With: Sean Stevenson MD When: 2 weeks at the wound center. call [phone] for appt. Proposed Discharge Date: 05/21/18 05/23/182134 <Electronically signed by Sean Stevenson MD> Date Sean Stevenson MD CC: Jonn Pedroza MD; Eduardo Rubio DO; Alexandre Ivan MD; Matty Quiroz MD; Wound Care Center CBC-COMPLETE BLOOD CNT Collected: 05/21/2018 Status: F Source: ROHINI NO DIFF 7:40 AM [facility] REPOSITORY TYPE CODE TESTS RESULT OUT OF RANGE REFERENCE UNITS LAB L100.1000 4.4-11.0 K/mm3 Normal WBC 6.1 LAB L100.1200 4.2-5.4 M/mm3 Low RBC 3.40 LAB L100.1300 12.0-15.0 g/dl Low HGB 9.9 LAB L100.1400 37-47 % Low HCT 32.1 LAB L100.1500 81-99 fL Normal MCV 94.4 LAB L100.1600 27.0-32.0 pg Normal MCH 29.1 LAB L100.1700 32-36 g/gl Low MCHC 30.8 LAB L100.1810 11.6-14.6 % High RDW CV 16.0 LAB L100.1820 35.1-43.9 fl High RDW SD 55.1 LAB L100.1900 150-450 K/mm3 Normal PLT 288 LAB L100.2000 6.2-12.0 fl Normal MPV 9.5 Performed By: #### L100.0500 #### [facility] [address] [place], [address] BASIC METABOLIC Collected: 05/21/2018 Status: F Source: ROHINI PROFILE (BMP) 7:40 AM [facility] REPOSITORY TYPE CODE TESTS RESULT OUT OF RANGE REFERENCE UNITS LAB L501.0100 74-106 mg/dL Normal GLU 98 Result Comment: Please note revised GLUCOSE reference range effective 2017. LAB L501.1000 7-18 mg/dL Normal BUN 8 LAB L501.1100 0.55-1.02 mg/dL Normal CREAT,SERUM 0.61 Result Comment: The validity of the calculated GFR AND GFRAA in patients over 70 years has not been determined. Clinical correlation is essential. LAB L501.1110 >60 mL/min Normal EST GFR 111 Result Comment: Non- GFR Calc LAB L501.1115 >60 mL/min Normal EST GFR - AA 135 Result Comment: GFR Calc LAB L501.1255 ml/min Normal Estimated CRCL 107.88 LAB L501.1300 10-20 RATIO BUN/CRE Normal 13.0 LAB L501.2200 8.5-10 mg/dL .1 CA Normal 8.5 LAB L501.5300 136-14 mmol/L 5 NA Normal 140 LAB L501.5600 3.5-5. mmol/L 1 K Normal 3.6 LAB L501.5900 98-107 mmol/L CL Normal 104 LAB L501.6100 21.0-3 mmol/L 2.0 CO2 Normal 29.0 LAB L501.6200 5-15 GAP Normal 7 Performed By: #### L500.2500 #### [facility] [address] [place], [place], [address] VANCOMYCIN, TROUGH Collected: 05/21/2018 Status: F Source: ROHINI LEVEL 7:40 AM [facility] REPOSITORY Order Comment: Has pt arrived? Y Time Medication is to be Given? 0800 TYPE CODE TESTS RESULT OUT OF RANGE REFERENCE UNITS LAB L501.8820 5.0-15.0 ug/mL Normal VANCO, TROUGH 9.1 Result Comment: VANCOMYCIN STANDARED DRUG THERAPY TROUGH LEVEL: 5.0 - 15.0 mg/L VANCOMYCIN HIGH INTENSITY THERAPY TROUGH LEVEL: 15.0 - 20.0 mg/L High Intensity therapy recommended for serious life threatening infections include: - Meningitis -Endocarditis -Pneumonia (Ventilator/Healtcare Associated) -Sepsis PLEASE CONTACT PHARMACY SERVICES (#[id number]) FOR INTERPRETATION OF RESULTS. Performed By: #### L501.8820 #### [facility] [address] [place], [address] CONSULTATION Observed: 05/20/2018 Status: F Source: [place] 3:42 PM [facility] REPOSITORY [facility] Medical Records Department [address] [place] [address] Consultation 05/20/18 1513 MR#: [id number] Acct: [id number] Name: ROBLES CARRASQUILLO Rep #: [id number] : 1970 48 From: Alexandre Ivan MD PCP: Eduardo Rubio DO Status: ADM IN Y Location: [place] [address] Problem List (1) History of Graves' disease Status: Chronic Comment: treated with radiation ablation (2) HTN (hypertension) Status: Chronic Qualifiers: Hypertension type: essential hypertension Qualified Code(s): I10 - Essential (primary) hypertension (3) Anemia Status: Chronic (4) Personal hx of gastric bypass Status: Chronic Comment: 2010 (5) Morbid obesity Status: Chronic (6) Depression Status: Chronic (7) Infected wound Status: Acute (8) Hypothyroid Status: Chronic (9) Anxiety Status: Chronic Reason for Consult Date of Consultation: 05/20/18 Reason for Consultation: Medical management History of Present Illness: The patient is a 48 year old F with a h/o graves disease treated with radioactive iodine and is now hypothyroid, as well as right breast cancer s/p mastectomy and reconstruction, gastric bypass for morbid obesity, anemia from B12 deficiency and iron deficiency, and anxiety and depression presenting with right breast infection from her implant. She has had difficulty with this in the past and has been on several courses of vancomycin d/t infected spacer. She is s/p removal of the breast implant and wash out with a wound vac in place. From a medical standpoint her medications have been stable and her conditions have been stable. She has had issue in the past with her TSH and was recently increased to 200 mcg. 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) nonhealing ulcer right breast reconstruction History of MRSA infection (Chronic) History of Graves' disease (Chronic) treated with radiation ablation HTN (hypertension) (Chronic) Anemia (Chronic) Personal hx of gastric bypass (Chronic) 2009 Morbid obesity (Chronic) Depression (Chronic) Disproportion of reconstructed breast (Chronic) N65.1 disproportion reconstructed breasts Abscess of right breast (Chronic) N61.1 involving inferomedial periareolar area Abscess of left breast (Chronic) N61.1 recurrent left breast infection in medial periareolar area Skin ulcer of other site (Chronic) nonhealing recurrent infected ulcer left breast at medial periareolar area Macromastia (Chronic) N62 bilateral macromastia Neck pain (Chronic) M54.2 Back pain, thoracic (Chronic) M54.6 Intertrigo (Chronic) L30.4 inframammary intertrigo Shoulder pain (Chronic) M25.519 bilateral shoulder pain from the weight of her breasts on her bra straps Smoker (Chronic) Stopped smoking less than 1 month ago (Chronic) Former smoker (Chronic) Z87.891 Hypothyroid (Chronic) Anxiety (Chronic) Medical History: Medical History (Last Reviewed 11/13/17 @ 09:21 by Tiff Abdi) Abscess L02.91 right breast Anemia D64.9 Anxiety F41.9 BREAST LUMP/CYST COMPROMISED BILATERAL BREAST REDUCTION NIPPLE GRAFTS Depression (emotion) F32.9 Disproportion of reconstructed breast N65.1 Graves disease E05.00 S/P THYROIDECTOMY COMPLETE 11/2001 Hypertriglyceridemia E78.1 Hypothyroidism Onset Date: 2001 E03.9 MRSA (methicillin resistant staph aureus) culture positive Z22.322 Metabolic syndrome E88.81 NONHEALING SURGICAL WOUND RIGHT BREAST RIGHT LATERAL AND RIGHT MEDIAL BREAST AND TZONE RIGHT BREAST NONHEALING ULCER LEFT BREAST AT VERTICAL INCISION Obesity E66.9 Ovarian cyst N83.209 RECURRENT INFECTED ULCER LEFT BREAST RECURRENT NONHEALING INFECTED MRSA ULCER RIGHT BREAST Seasonal allergies J30.2 Hypertension I10 Allergies codeine Allergy (Verified 05/19/18 13:15) Rash Penicillins Allergy (Verified 05/19/18 13:15) Rash NSAIDS (Non-Steroidal Anti-Inflamma Adverse Reaction (Verified 05/19/18 13:15) Other UNABLE TO TAKE DUE TO WEIGHT LOSS SURGERY Home Medications: Ambulatory Orders Medication Instructions Recorded Levothyroxine [Synthroid] 200 mcg PO DAILY 03/19/14 Surgical History: Surgical History (Last Updated 10/07/17 @ 12:37 by Tiff Abdi) BILATERAL BREAST REDUCTION MAMMAPLASTY WITH BILATERAL FREE NIPPLE GRAFT RECONSTRUCTION, TISSUE REMOVED FROM THE LEFT BREAST WAS 702 GRAMS, TISSUE REMOVED FROM THE RIGHT BREAST WAS 1400 GRAMS 10/01/2016 COMPLETE THYROIDECTOMY DUE TO GRAVES' DISEASE Onset Date: 11/2001 Delivered by section O82 09/1998 AND 01/2001 EXCISIONAL DEBRIDEMENT RECURRENT NONHEALING INFECTED MRSA ULCER RIGHT BREAST AND COMPROMISED SKIN GRAFT RIGHT NIPPLE WITH COMPLETION MASTECTOMY 04/18/2017 EXCISIONL DEBRIDEMENT NONHEALING RECURRENT INFECTED ULCER LEFT BREAST AT MEDIAL PERIAREOLAR AREA WITH COMPLEX SECONDARY WOUND CLOSURE 12/28/2015 AND 04/04/2016 Gastric bypass status for obesity Z98.84 04/10/2010 [place] LBS LOSS HERNIA REPAIR WITH MESH Onset Date: 2014 History of bilateral ligation of fallopian tubes Onset Date: 2000 Z98.51 History of incisional hernia repair Onset Date: 07/03/10 Z98.890, Z87.19 History of tonsillectomy Onset Date: 12/2003 Z98.890, Z90.89 INCISION AND DRAINAGE BREAST ABSCESS 03/2015 AND 07/2015 MASTOTOMY RIGHT BREAST WITH INCISION AND DRAINAGE ABSCESS AND EXCISION WITH PARTIAL MASTECTOMY 06/07/2016 PANICULECTOMY Onset Date: 04/2013 S/P complete hysterectomy Z90.710 02/2007 BENIGN REASON ( OVARIAN CYST, AND DYSFUNCTIONAL UTERINE BLEEDING ), ON HRT FOR ONE YEAR AFTER HYSTERECTOMY SURGICAL PREPARATION AND REVISION BREAST RECONSTRUCTION RIGHT BREAST RECONSTRUCTION WITH EXCISIONAL DEBRIDEMENT NONHEALING SURGICAL WOUNDS LATERAL ASPECT AND MEDIAL ASPECT WITH SECONDARY WOUND CLOSURE AND EXCISIONAL DEBRIDEMENT COMPROMISED GRAFT ULCERATION NIPPLE AREA AND NONHEALING SURGICAL WOUND T ZONE AREA WITH FTSG FROM RIGHT LATERAL BREAST (25 CM2) 11/21/2016 SURGICAL PREPARATION LEFT BREAST WITH MASTECTOMY AND INCISION AND DRAINAGE AND EXCISIONAL DEBRIDEMENT RECURRENT LEFT BREAST INFECTION ULCER WITH 3 CM PARTIAL SECONDARY WOUND CLOSURE 11/21/2015 SURGICAL PREPARATION RIGHT BREAST WITH INCISION AND DRAINAGE AND EXCISIONAL DEBRIDEMENT, NONHEALING INFECTED NIPPLE GRAFT ULCER (63 SQUARE CM) 01/10/2017 Surgical History: - Psychiatric History: Anxiety, Depression Smoking Status: Former smoker - *Family History Paternal Family History: Family History (Last Updated 10/07/17 @ 12:54 by Tiff Abdi) Father Hypertension Hyperlipidemia Acute depression Diabetes Mother Asthma Grandmother Diabetes Heart disease Grandmother Hypertension Diabetes Grandfather Parkinson disease Brother Asthma Aunt Thyroid cancer Uncle Thyroid cancer History Items: - Review of Systems Constitutional: Denies: Chills, Fever, Weight Change HEENT: Denies: Head Aches, Sinus Congestion, Sinus Drainage Cardiovascular: Denies: Chest Pain, Palpitations Respiratory: Denies: Cough, Shortness of breath at rest, Sputum production Gastrointestinal: Denies: Abdominal Pain, Nausea, Vomiting Genitourinary: Denies: Dysuria Musculoskeletal: Denies: Joint Pain, Joint Tenderness Skin: Reports: Wounds - pain in her right breast Neurological: Denies: Numbness, Tingling, Focal weakness Psychiatric: Reports: Anxiety, Depression. Denies: Homicidal Ideations, Suicidal Ideations Hematologic/ Lymphatic: Denies: Easy Bruising, Easy Bleeding - Physical Exam General: Alert, Oriented x3, Cooperative, No apparent distress HEENT: Atraumatic, EOMI, Normocephalic Oral: Moist Mucosa Neck: Supple, No JVD Lungs: Clear to auscultation, Normal air movement, No rhonchi, No wheeze, No rales Cardiovascular: Regular rate, Regular Rhythm, Normal S1, Normal S2, No murmurs Abdomen: Soft, Non Tender, Non-Distended, No Hepato-splenomegaly Extremities: No edema Skin: - - Right breast wound with wound vac in place Neurological: Motor Exam 5/5 strength throughout, Sensory exam intact to light touch and pain Psych/Mental Status: Normal Affect, Appropriate Vital Signs Temp Pulse Resp BP Pulse Ox 97.7 F L 94 16 116/77 95 05/20/18 14:07 05/20/18 14:07 05/20/18 14:07 05/20/18 14:07 05/20/18 14:07 Oxygen Delivery Method Room Air Weight: 291 lb 3.69 oz Body Mass Index (BMI) 47.0 Intake and Output for Last 24 Hours Intake Total 1000 / 1000 2121 Balance 1000 / 1000 2121 Microbiology Past 72 Hours 05/19/18 19:50 Gram Stain - Final Biopsy - Breast Laboratory Tests Past 24 Hrs WBC 8.3 RBC 3.39 L Assessment/Plan All Active Problems (Last Reviewed 11/13/17 @ 09:21 by Tiff Abdi) Acquired absence of right breast and nipple (Acute) Cellulitis of right breast (Acute) Septic shock (Acute) Infected wound (Acute) Open wound of right breast (Acute) 1. Cellulitis of right breast s/p removal of implant with wound vac - wound care consulted for vac management - In discussion with her she would rather not have any further implants attempted at this time - ID consulted for abx management, cefepime and vanc for now 2. 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 Gastric bypass history with nutritional deficiencies - C/w her home supplementation with her iron/vitamin C and B12 - No NSAIDs - c/w calcium and Vit D supplementation 4. Depression/Anxiety/Headaches - Stable at the moment - c/w prozac and wellbutrin - for the headaches can c/w nortriptylin and magnesium DVT: Lovenox Diet: Regular Code: FULL Dispo: Home tomorrow with home health Code Visit Inpatient E AND M: 99200 Init Hosp L2 05/20/18 1542 <Electronically signed by Alexandre Ivan MD> Date Alexandre Ivan MD Cosigner Signature (if applicable): Date CC: Sean Stevenson MD; Eduardo Rubio DO; Alexandre Ivan MD; Matty Quiroz MD Signed CONSULTATION Observed: 05/20/2018 Status: F Source: [place] 11:53 AM [facility] REPOSITORY [facility] Medical Records Department [address] [place] [id number] Consultation 05/20/18 1143 MR#: [id number] Acct: [id number] Name: ROBLES CARRASQUILLO Rep #: [id number] : 1970 48 From: Matty Quiroz MD PCP: Eduardo Rubio DO Status: ADM IN Y Location: MS2 [id number] Problem List (1) Abscess of right breast Status: Chronic Comment: N61.1 involving inferomedial periareolar area Reason for Consult: breast abscess Consulted by: Dr. Stevenson History of Present Illness: The patient is a 48 year old F with h/o R breast MRSA infection s/p implant, admitted 04/2017 with septic shock. Had implant removed, given course of iv vanc. Did well, then taken back for tissue bond runner placement. Given 6 week course of iv vanc at that time more as a preventative measure, and then picc removed and she was doing well. 2 weeks ago on 05/05/18, had bond runner removed and implant placed. Picc was put back in, has been on iv vanc at home since then. On 05/17 had heavy drain output of thick pus. Associated with chills and redness/induration/swelling/pain in R breast. Called Dr. Stevenson, started on po levaquin 05/18. No improvement, taken back to OR 05/19 for removal of implant and I AND D. Given dose of levaquin and flagyl. Now on iv vanc, wound vac in place. Full ROS performed and neg except as noted above. 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) nonhealing ulcer right breast reconstruction History of MRSA infection (Chronic) History of Graves' disease (Chronic) treated with radiation ablation HTN (hypertension) (Chronic) Anemia (Chronic) Personal hx of gastric bypass (Chronic) 2009 Morbid obesity (Chronic) Depression (Chronic) Disproportion of reconstructed breast (Chronic) N65.1 disproportion reconstructed breasts Abscess of right breast (Chronic) N61.1 involving inferomedial periareolar area Abscess of left breast (Chronic) N61.1 recurrent left breast infection in medial periareolar area Skin ulcer of other site (Chronic) nonhealing recurrent infected ulcer left breast at medial periareolar area Macromastia (Chronic) N62 bilateral macromastia Neck pain (Chronic) M54.2 Back pain, thoracic (Chronic) M54.6 Intertrigo (Chronic) L30.4 inframammary intertrigo Shoulder pain (Chronic) M25.519 bilateral shoulder pain from the weight of her breasts on her bra straps Smoker (Chronic) Stopped smoking less than 1 month ago (Chronic) Former smoker (Chronic) Z87.891 Anxiety (Chronic) Allergies/Adverse Reactions: Allergies codeine Allergy (Verified 05/19/18 13:15) Rash Penicillins Allergy (Verified 05/19/18 13:15) Rash NSAIDS (Non-Steroidal Anti-Inflamma Adverse Reaction (Verified 05/19/18 13:15) Other UNABLE TO TAKE DUE TO WEIGHT LOSS SURGERY Home Medications: Ambulatory Orders Medication Instructions Recorded Levothyroxine [Synthroid] 200 mcg PO DAILY 03/19/14 - Social History SMOKING STATUS:: Former smoker Vital Signs Temp Pulse Resp BP Pulse Ox 97.9 F 95 14 132/76 H 100 05/20/18 07:56 05/20/18 07:56 05/20/18 07:56 05/20/18 07:56 05/20/18 07:56 Oxygen Delivery Method Room Air Weight: 132.1 kg Body Mass Index (BMI) 47.0 Laboratory Tests Past 24 Hrs WBC 8.3 RBC 3.39 L - Other Studies Radiology: [] reviewed Other Studies: [] Route of nutrition/ use of supplements: [] Nutritional Intake: [] IV Site: [] Hartman Catheter: [] - Physical Exam General: Alert, Oriented x3, Cooperative, No apparent distress HEENT: Atraumatic, PERRLA, EOMI Neck: Supple, No Nodes Lungs: Clear to auscultation, Normal air movement Cardiovascular: Regular rate, Regular Rhythm Abdomen: Soft, Non Tender, Non-Distended Extremities: No edema Skin: No rashes, Ulcer/ Wound - R breast with wound vac in place, reviewed photos IV Site: PICC, without redness Musculoskeletal: No Tenderness to Palpation of Joints or Extremities Neurological: Cranial nerves II-XII grossly intact - Assessment/Plan Antibiotics: [] Assessment/Plan: [] R breast infection s/p implant placement 05/05/18 with prior h/o MRSA - now s/p removal of implant and debridement with wound vac placement 05/19/[address] Stevenson. Given that this started while she was on iv vanc, will cover more broadly. Had been on levaquin for a few days prior to surgery. Reports rash with PCN about 15-20 years ago. Thinks she may have done ok with augmentin in the past. Will continue vanc and add cefepime while cxs pending. MRSA pcr was neg. Surg cx pending. Will follow, thank you. 05/20/18 6013 <Electronically signed by Matty Quiroz MD> Date Matty Quiroz MD Cosigner Signature (if applicable): Date CC: Phoebe Escoto MD; Jonn Chang MD; Edilma Ochoa MD; Sean Stevenson MD; Eduardo Rubio DO; Edvin Goncalves M.D.; Alexandre Ivan MD; Oscar Monsivais M.D.; Matty Quiroz MD Signed CBC-COMPLETE BLOOD CNT Collected: 05/20/2018 Status: F Source: [place]OHINI NO DIFF 4:20 AM [facility] REPOSITORY TYPE CODE TESTS RESULT OUT OF RANGE REFERENCE UNITS LAB L100.1000 4.4-11.0 K/mm3 Normal WBC 8.3 LAB L100.1200 4.2-5.4 M/mm3 Low RBC 3.39 LAB L100.1300 12.0-15.0 g/dl Low HGB 10.1 LAB L100.1400 37-47 % Low HCT 32.2 LAB L100.1500 81-99 fL Normal MCV 95.0 LAB L100.1600 27.0-32.0 pg Normal MCH 29.8 LAB L100.1700 32-36 g/gl Low MCHC 31.4 LAB L100.1810 11.6-14.6 % High RDW CV 16.0 LAB L100.1820 35.1-43.9 fl High RDW SD 53.5 LAB L100.1900 150-450 K/mm3 Normal PLT 262 LAB L100.2000 6.2-12.0 fl Normal MPV 9.8 Performed By: #### L100.0500, L101.9900 #### [facility] [address] [place], [address] ERYTHROCYTE SED RATE Collected: 05/20/2018 Status: F Source: ROHINI 4:20 AM [facility] REPOSITORY TYPE CODE TESTS RESULT OUT OF RANGE REFERENCE UNITS LAB L102.0000 0-20 mm/hr High SED RATE 88 Performed By: #### L100.0500, L101.9900 #### [facility] [address] [facility] [place], [place], [address] BASIC METABOLIC Collected: 05/20/2018 Status: F Source: [place] PROFILE (BMP) 4:20 AM [facility] REPOSITORY TYPE CODE TESTS RESULT OUT OF RANGE REFERENCE UNITS LAB L501.0100 74-106 mg/dL High GLU 126 Result Comment: Fasting Glucose result greater than or equal to 126 mg/dL suggests DIABETES MELLITUS per A.D.A. criteria. Please note revised GLUCOSE reference range effective 2017. LAB L501.1000 7-18 mg/dL Low BUN 6 LAB L501.1100 0.55-1.02 mg/dL Normal CREAT,SERUM 0.59 Result Comment: The validity of the calculated GFR AND GFRAA in patients over 70 years has not been determined. Clinical correlation is essential. LAB L501.1110 >60 mL/min Normal EST GFR 116 Result Comment: Non- GFR Calc LAB L501.1115 >60 mL/min Normal EST GFR - AA 141 Result Comment: GFR Calc LAB L501.1255 ml/min Normal Estimated CRCL 111.54 LAB L501.1300 10-20 RATIO BUN/CRE Normal 10.2 LAB L501.2200 8.5-10 mg/dL .1 CA Normal 8.7 LAB L501.5300 136-14 mmol/L 5 NA Normal 141 LAB L501.5600 3.5-5. mmol/L 1 K Normal 3.6 LAB L501.5900 98-107 mmol/L CL Normal 104 LAB L501.6100 21.0-3 mmol/L 2.0 CO2 Normal 27.0 LAB L501.6200 5-15 GAP Normal 10 Performed By: #### L500.2500, L501.6710, L506.0500 #### [facility] [address] [place], [place], [address] CRP Collected: 05/20/2018 Status: F Source: [place] 4:20 AM [facility] REPOSITORY TYPE CODE TESTS RESULT OUT OF RANGE REFERENCE UNITS LAB L501.6710 0.0-3.0 mg/L High 138.00 C-REACTIVE PROT Result Comment: C-Reactive Protein (CRP) provides useful information for the diagnosis, therapy and monitoring of inflammatory processes and associated diseases. For the evaluation of Relative Risk for Cardiovascular Disease, a High Sensitivity CRP (HSCRP) should be ordered. Performed By: #### L500.2500, L501.6710, L506.0500 #### [facility] [address] [place], [address] PREALBUMIN Collected: 05/20/2018 Status: F Source: ROHINI 4:20 AM [facility] REPOSITORY TYPE CODE TESTS RESULT OUT OF REFERENCE UNITS RANGE LAB L506.0500 20.0-40.0 mg/dL Low PREALBUMIN 12.6 Performed By: #### L500.2500, L501.6710, L506.0500 #### [facility] [address] [place], [address] MRSA WOUND DNA BY Collected: 05/19/2018 Status: F Source: ROHINI PCR 7:50 PM [facility] REPOSITORY Order Comment: Has pt arrived? Y Specimen Source? RIGHT BREAST ABSCESS TYPE CODE TESTS RESULT OUT OF RANGE REFERENCE UNITS LAB L8200.1100 Negative Normal MRSA Negative RESULT LAB L8200.1150 Negative Normal SA RESULT NEGATIVE Performed By: #### L8200.1075 #### [facility] [address] [place], [address] Observed: 05/19/2018 Status: F Source: ROHINI CULTURE, DEEP WOUND 7:50 PM [facility] REPOSITORY Order Date: 04/30/17 Has pt arrived? Y Comments: RIGHT BREAST ABSCESS Gram Stain Gram Stain 2+ White Blood Cells No organisms seen Wound Culture ORGANISM 1: Citrobacter koseri Amount Growth 2+ Citrobacter koseri: REACTION Amoxacillin/Clavulanic Acid $ <=2 S Cefazolin $ <=4 S Cefepime $ <=1 S Ceftriaxone $ <=1 S Ciprofloxacin $ <=0.25 S Ertapenim $$$ <=0.5 S Gentamicin $ <=1 S Imipenem *NF <=0.25 S Levofloxacin $ <=0.12 S Tobramycin $ <=1 S Trimethoprim/Sulfametho $ <=20 S (NF) indicates non-formulary drug at [facility]. Approval by Infectious Disease Specialist required before non-formulary drugs may be ordered and/or dispensed. Cult, Anaerobic No anaerobic bacteria isolated. Performed By: #### M100.1500 #### [facility] [address] [place], [address] ABSCESS (CHOOSE Observed: 05/19/2018 Status: F Source: [facility]) 2:45 PM [facility] REPOSITORY Patient: ROBLES CARRASQUILLO : 1970 (48/F) Acct Num: [id number] Phys: Sean Stevenson MD Unit Num: [id number] Loc: MS2 IU728-1 Specimen: [id number] Received: 05/20/18814 Spec Type: Abscess TISSUES TISSUES: A. Right breast, NOS B. FOREIGN BODY - BREAST IMPLANT GROSS DESCRIPTION A - Received is one container labeled with the patient's name and not further designated. The specimen consists of 11 fragments of soft tissue, indurated tissue and blood clots aggregating to 15 x 13 x 2 cm. Serial sections do not reveal mass lesions. Reliner sections are submitted in three cassettes. B - Received in fixative is one container labeled with the patient's name and designated right breast implant. The specimen consists of a breast implant that is intact without tears or breaks and measures 5 cm in diameter and 6 cm in thickness and bears the follows inscriptions [place]. No soft tissue is adherent to the implant. No sections are submitted. / AM:latha 05/20/18 TC:2 CPT: 58586, 62677 HEADER OPERATION: Removal, breast implant PRE-OP DIAGNOSIS: Recurrent infections, bilateral breast acquired abscess right breast, bilateral macromastia status post breast reduction mammaplasty TISSUE SUBMITTED: A. Right breast abscess B. Right breast implant MICROSCOPIC DESCRIPTION Slides are reviewed. MICROSCOPIC DIAGNOSIS A. Right breast abscess: Fragments of fibroconnective tissue and skeletal muscle tissue with acute and chronic inflammation and foreign body giant cell reaction. B. Right breast implant: Breast implant (gross only). SJ:latha 05/21/18 Signed Andres Thomas 05/21/18 <signature on file> Performed By: #### SEBAS #### [facility] [address] [place], [address] COMPREHENSIVE METABOLIC Collected: 05/18/2018 Status: F Source: ROHINI SOL 8:20 AM [facility] REPOSITORY TYPE CODE TESTS RESULT OUT OF RANGE REFERENCE UNITS LAB L501.0100 74-106 mg/dL High GLU 114 Result Comment: Fasting Glucose result from 100 to 125 mg/dL suggests IMPAIRED HOMEOSTASIS per A.D.A. criteria. Please note revised GLUCOSE reference range effective 2017. LAB L501.1000 7-18 mg/dL Normal BUN 8 LAB L501.1100 0.55-1.02 mg/dL Normal CREAT,SERUM 0.67 Result Comment: The validity of the calculated GFR AND GFRAA in patients over 70 years has not been determined. Clinical correlation is essential. LAB L501.1110 >60 mL/min Normal EST GFR 101 Result Comment: Non- GFR Calc LAB L501.1115 >60 mL/min Normal EST GFR - AA 122 Result Comment: GFR Calc LAB L501.1300 10-20 RATIO Normal BUN/CRE 12.0 LAB L501.1500 6.4-8.2 g/dL T Normal PROT 7.1 LAB L501.1800 3.2-5.0 g/dL Normal ALB 3.2 LAB L501.1950 2.2-4.2 g/dL Normal GLOB 3.9 LAB L501.2000 0.9-2.4 RATIO Low A/G 0.8 LAB L501.2200 8.5-10.1 mg/dL CA Normal 8.9 LAB L501.4100 15-37 U/L Normal AST 21 LAB L501.4305 45-117 U/L Normal ALK P 84 LAB L501.4405 13-56 U/L Normal ALT 30 LAB L501.4600 0.20-1.00 mg/dL T Normal BILI 0.40 LAB L501.5300 136-145 mmol/L NA Normal 139 LAB L501.5600 3.5-5.1 mmol/L K Normal 4.0 LAB L501.5900 98-107 mmol/L CL Normal 101 LAB L501.6100 21.0-32.0 mmol/L Normal CO2 26.0 LAB L501.6200 5-15 Normal GAP 12 Performed By: #### L500.4050, L501.6710 #### [facility] [address] [place], [place], [address] CRP Collected: 05/18/2018 Status: F Source: V[place]ER[place]EN 8:20 AM [facility] REPOSITORY TYPE CODE TESTS RESULT OUT OF RANGE REFERENCE UNITS LAB L501.6710 0.0-3.0 mg/L High 185.00 C-REACTIVE PROT Result Comment: C-Reactive Protein (CRP) provides useful information for the diagnosis, therapy and monitoring of inflammatory processes and associated diseases. For the evaluation of Relative Risk for Cardiovascular Disease, a High Sensitivity CRP (HSCRP) should be ordered. Performed By: #### L500.4050, L501.6710 #### [facility] [address] [place], [place], [address] CBC-COMPLETE BLOOD CNT Collected: 05/18/2018 Status: F Source: [place] NO DIFF 8:20 AM [facility] REPOSITORY TYPE CODE TESTS RESULT OUT OF RANGE REFERENCE UNITS LAB L100.1000 4.4-11.0 K/mm3 High WBC 16.6 LAB L100.1200 4.2-5.4 M/mm3 Low RBC 4.07 LAB L100.1300 12.0-15.0 g/dl Low HGB 11.8 LAB L100.1400 37-47 % Normal HCT 38.0 LAB L100.1500 81-99 fL Normal MCV 93.4 LAB L100.1600 27.0-32.0 pg Normal MCH 29.0 LAB L100.1700 32-36 g/gl Low MCHC 31.1 LAB L100.1810 11.6-14.6 % High RDW CV 16.2 LAB L100.1820 35.1-43.9 fl High RDW SD 55.3 LAB L100.1900 150-450 K/mm3 Normal PLT 275 LAB L100.2000 6.2-12.0 fl Normal MPV 10.3 Performed By: #### L100.0500, L101.9900 #### [facility] [address] [place], [address] ERYTHROCYTE SED RATE Collected: 05/18/2018 Status: F Source: ROHINI 8:20 AM [facility] REPOSITORY TYPE CODE TESTS RESULT OUT OF RANGE REFERENCE UNITS LAB L102.0000 0-20 mm/hr High SED RATE 77 Performed By: #### L100.0500, L101.9900 #### [facility] [address] [facility] [address] [place], [address] VANCOMYCIN, TROUGH Collected: 05/18/2018 Status: F Source: ROHINI LEVEL 8:20 AM [facility] REPOSITORY Order Comment: Time Medication is to be Given? 0820 TYPE CODE TESTS RESULT OUT OF RANGE REFERENCE UNITS LAB L501.8820 5.0-15.0 ug/mL Normal VANCO, TROUGH 8.5 Result Comment: VANCOMYCIN STANDARED DRUG THERAPY TROUGH LEVEL: 5.0 - 15.0 mg/L VANCOMYCIN HIGH INTENSITY THERAPY TROUGH LEVEL: 15.0 - 20.0 mg/L High Intensity therapy recommended for serious life threatening infections include: - Meningitis -Endocarditis -Pneumonia (Ventilator/Healtcare Associated) -Sepsis PLEASE CONTACT PHARMACY SERVICES (#[id number]) FOR INTERPRETATION OF RESULTS. Performed By: #### L501.8820 #### [facility] [address] [facility] [place], [address] ERYTHROCYTE SED RATE Collected: 05/11/2018 Status: F Source: ROHINI 8:30 AM [facility] REPOSITORY TYPE CODE TESTS RESULT OUT OF RANGE REFERENCE UNITS LAB L102.0000 0-20 mm/hr High SED RATE 66 Performed By: #### L101.9900, L100.0500 #### [facility] [address] [place], [address] CBC-COMPLETE BLOOD CNT Collected: 05/11/2018 Status: F Source: ROHINI NO DIFF 8:30 AM [facility] REPOSITORY TYPE CODE TESTS RESULT OUT OF RANGE REFERENCE UNITS LAB L100.1000 4.4-11.0 K/mm3 Normal WBC 6.4 LAB L100.1200 4.2-5.4 M/mm3 Low RBC 4.07 LAB L100.1300 12.0-15.0 g/dl Normal HGB 12.2 LAB L100.1400 37-47 % Normal HCT 38.7 LAB L100.1500 81-99 fL Normal MCV 95.1 LAB L100.1600 27.0-32.0 pg Normal MCH 30.0 LAB L100.1700 32-36 g/gl Low MCHC 31.5 LAB L100.1810 11.6-14.6 % High RDW CV 15.6 LAB L100.1820 35.1-43.9 fl High RDW SD 52.4 LAB L100.1900 150-450 K/mm3 Normal PLT 288 LAB L100.2000 6.2-12.0 fl Normal MPV 10.3 Performed By: #### L101.9900, L100.0500 #### [facility] [address] [facility] [place], [place], [id number] VANCOMYCIN, TROUGH Collected: 05/11/2018 Status: F Source: [facility] 8:30 AM [facility] REPOSITORY Order Comment: Send Results To: pharmacy to dose. also fax results to [phone]. Reason for Laboratory Test MRSA Time Medication is to be Given? 0900 TYPE CODE TESTS RESULT OUT OF RANGE REFERENCE UNITS LAB L501.8820 5.0-15.0 ug/mL Normal VANCO, TROUGH 10.2 Result Comment: VANCOMYCIN STANDARED DRUG THERAPY TROUGH LEVEL: 5.0 - 15.0 mg/L VANCOMYCIN HIGH INTENSITY THERAPY TROUGH LEVEL: 15.0 - 20.0 mg/L High Intensity therapy recommended for serious life threatening infections include: - Meningitis -Endocarditis -Pneumonia (Ventilator/Healtcare Associated) -Sepsis PLEASE CONTACT PHARMACY SERVICES (#[id number]) FOR INTERPRETATION OF RESULTS. Performed By: #### L501.8820 #### [facility] [address] [facility] [place], [place], [id number] COMPREHENSIVE METABOLIC Collected: 05/11/2018 Status: F Source: [facility] 8:30 AM [facility] REPOSITORY TYPE CODE TESTS RESULT OUT OF RANGE REFERENCE UNITS LAB L501.0100 74-106 mg/dL Normal GLU 94 Result Comment: Please note revised GLUCOSE reference range effective 2017. LAB L501.1000 7-18 mg/dL Normal BUN 10 LAB L501.1100 0.55-1.02 mg/dL Normal CREAT,SERUM 0.61 Result Comment: The validity of the calculated GFR AND GFRAA in patients over 70 years has not been determined. Clinical correlation is essential. LAB L501.1110 >60 mL/min Normal EST GFR 112 Result Comment: Non- GFR Calc LAB L501.1115 >60 mL/min Normal EST GFR - AA 135 Result Comment: GFR Calc LAB L501.1300 10-20 RATIO Normal BUN/CRE 16.4 LAB L501.1500 6.4-8.2 g/dL T Normal PROT 7.0 LAB L501.1800 3.2-5.0 g/dL Normal ALB 3.2 LAB L501.1950 2.2-4.2 g/dL Normal GLOB 3.8 LAB L501.2000 0.9-2.4 RATIO Low A/G 0.8 LAB L501.2200 8.5-10.1 mg/dL CA Normal 8.9 LAB L501.4100 15-37 U/L Normal AST 19 LAB L501.4305 45-117 U/L Normal ALK P 75 LAB L501.4405 13-56 U/L Normal ALT 28 LAB L501.4600 0.20-1.00 mg/dL T Normal BILI 0.20 LAB L501.5300 136-145 mmol/L NA Normal 142 LAB L501.5600 3.5-5.1 mmol/L K Normal 4.3 LAB L501.5900 98-107 mmol/L CL Normal 103 LAB L501.6100 21.0-32.0 mmol/L Normal CO2 28.0 LAB L501.6200 5-15 Normal GAP 11 Performed By: #### L500.4050, L501.6710 #### [facility] [address] [place], [place], [address] CRP Collected: 05/11/2018 Status: F Source: [place] 8:30 AM [facility] REPOSITORY TYPE CODE TESTS RESULT OUT OF RANGE REFERENCE UNITS LAB L501.6710 0.0-3.0 mg/L High 11.60 C-REACTIVE PROT Result Comment: C-Reactive Protein (CRP) provides useful information for the diagnosis, therapy and monitoring of inflammatory processes and associated diseases. For the evaluation of Relative Risk for Cardiovascular Disease, a High Sensitivity CRP (HSCRP) should be ordered. Performed By: #### L500.4050, L501.6710 #### [facility] [address] [place], [address] HISTORY AND PHYSICAL Observed: 05/08/2018 Status: F Source: [place] EXAM 1:16 PM [facility] REPOSITORY [facility] Medical Records Department [address] [place] [address] History and Physical 05/04/18 1754 MR#: [id number] Acct: [id number] Name: ROBLES CARRASQUILLO Rep #: [id number] : 1970 48 From: Sean Stevenson MD PCP: Eduardo Rubio DO Status: DIS IN Y Location: [facility] History and Physical Date of Admission: 05/05/18 HISTORY OF PRESENT ILLNESS 48 year old woman comes in today for further evaluation breast reconstruction after undergoing completion mastectomy right breast in 04/14. She has a history of recurrent breast infections bilaterally. Most recently she had developed MRSA in the right breast. She has had multiple operative drainage procedures both before and after her bilateral breast reduction mammaplasty in 10/15. She denies fever at present. She started the breast reconstruction process on 12/16/17 where she underwent 1st stage delayed right breast reconstruction with placement of submuscular saline tissue bond runner (800 ml) and placement DermACELL decellularized dermis graft (160 cm2). She tolerated the tissue expansion. Recently she developed an ulceration in the vertical incision secondary to a heating pad. Wound culture showed Kocuria kristinae and no antibiotics were given. She started wound care with antibiotic ointment daily. She was initially scheduled for breast reconstruction surgery last month. The surgery had to be postponed because her TSH was elevated to 16.5. Just recently it had decreased to 6.49 which is now acceptable for general anesthesia. 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 Incisional hernia repair 07/03/10 panniculectomy 04/2013 hernia repair with mesh - 2014 incision and drainage breast abscess - 04/12 and 08/13 surgical preparation left breast with mastotomy, and incision and drainage and excisional debridement recurrent left breast infection ulcer with 3 cm partial secondary wound closure - 11/21/15 excisional debridement nonhealing recurrent infected ulcer left breast at medial periareolar area with complex secondary wound closure - 12/28/15 excisional debridement nonhealing recurrent infected ulcer left breast at medial periareolar area with complex secondary wound closure - 04/04/16 mastotomy right breast with incision and drainage abscess and excision with partial mastectomy - 06/07/16 Bilateral breast reduction mammaplasty with bilateral free nipple graft reconstruction - 10/01/16 Surgical preparation revision right breast reconstruction with excisional debridement nonhealing surgical wounds lateral aspect and medial aspect with secondary wound closure and excisional debridement compromised graft ulceration nipple area and nonhealing surgical wound Tzone area with FTSG from right lateral breast (25 cm2) - 11/21/16 Surgical preparation right breast with incison and drainage and excisional debridement nonhealing infected nipple graft ulcer (63 cm2) - 01/10/17 Excisional debridement recurrent nonhealing infected MRSA ulcer right breast and compromised skin graft right nipple with completion mastectomy - 04/18/17 Incision and drainage right mastectomy MRSA wound infection - 05/02/17 1st stage delayed right breast reconstruction with placement of submuscular saline tissue bond runner (800 ml) and placement DermACELL decellularized dermis graft (160 cm2) - 12/16/17 MEDICATIONS: Pamelor. MVI. Synthroid. Vitamin B12. Celexa. Vitamin D3. Wellbutrin. Vitamin E. Iron supplements. B Complex with Vitamin C. ALLERGIES: Codeine. Penicillin. NSAID's. FAMILY HISTORY: Father (biol.) - Has Family History of Hypertension PGM - Has Family History of Diabetes PGM - Has Family History of Heart Disease Mother (biol.) - Has Family History of Asthma Brother (full) - Has Family History of Asthma Father (biol.) - Has Family History of Depression negative for breast cancer. Heart disease. Thyroid cancer. Parkinson's disease. SOCIAL HISTORY: Patient was smoking up to 1/2-1ppd x 20 years. She has recently quit. Alcohol Use - no Drug Use - no Regular Exercise - no single, but live with partner for 12 years, have two children together, one son, one girl age 11 and 9, son has Asberger patient does not use aspirin. patient does not use ibuprofen. REVIEW OF SYSTEMS: General - Denies fever, fatigue and weakness. Had 150 lb weight loss after gastric bypass in 2009. Eyes - Denies eye pain. ENT - Denies nasal congestion and sore throat. Had thyroidectomy. Had tonsillectomy. CV - Denies chest pain or discomfort, fatigue, lightheadedness and shortness of breath with exertion. Resp - Denies cough and shortness of breath. Patient is a former smoker. GI - Denies nausea, vomiting, diarrhea and constipation. Gastric bypass due to severe obesity 158lbs loss. - Denies blood in urine and urinary frequency. Had hysterectomy MS - Complains of back pain. Denies joint pain, stiffness, muscle weakness and arthritis. Derm - Denies suspicious lesions and skin cancer. Neuro - Denies headaches and numbness. Psych - Complains of anxiety and depression. Endo - Denies excessive urination and excessive thirst. Has had recurrent breast infections. Heme - Denies bleeding and abnormal bruising. PHYSICAL EXAMINATION: General: well developed, well nourished, in no acute distress. Bra size was 42 D prior to the breast reduction. Head: normocephalic and atraumatic. Eyes: PERRL/EOM intact, conjunctiva and sclera clear. Neck: no masses, thyromegaly, or abnormal cervical nodes. Breasts: Left breast is well healed with vertical and horizontal incisions. Good shape and contour left breast. Right breast mastectomy incision shows a healing ulceration on the vertical incision. Measures 1 cm. No clinical evidence of infection. Palpable tissue bond runner in place. Lungs: clear bilaterally to auscultation. Heart: regular rate and rhythm. Msk: no bony tenderness. Pulses: pulses normal in all 4 extremities. Extremities: no clubbing, cyanosis, edema, or deformity noted with normal full range of motion of all joints. Neurologic: cranial nerves II-XII grossly intact. Skin: no rashes. Cervical Nodes: no significant adenopathy. Axillary Nodes: no significant adenopathy. Psych: alert and cooperative; normal mood and affect; normal attention span and concentration. ASSESSMENT 1. Recurrent infections bilateral breasts. 2. Bilateral macromastia s/p breast reduction mammaplasty. 3. s/p completion mastectomy right breast. 4. Acquired absence right breast. 5. Disproportion reconstructed breasts. 6. Former smoker. 7. MRSA. 8. Nonhealing ulceration right breast reconstruction from heating pad usage. 9. Deformity right breast reconstruction with excess mastectomy skin scar contour deformity. PLAN Her TSH has decreased to 6.49 which is now acceptable for general anesthesia. Will treat her perioperatively with Vancomycin. Will continue her next stage in her breast reconstruction process which is removal of the saline tissue bond runner with replacement cohesive gel implant. Will also revise the reconstructed right breast with excision nonhealing ulcer and excision excess mastectomy skin scar contour deformity. Tissue that is removed will be sent to Pathology for analysis to rule out carcinoma. Will have drains in for several days. Will keep her head elevated and will have a surgical bra for several weeks. She understands that with her history of recurrent infections, the foreign body implant may become infected. If recurrent infections persist and the foreign body implant is removed, she will then consider autogenous breast reconstruction options at that time. She continues to show good healing mastectomy scar right breast with no further evidence of infection, and I told the patient that I will proceed with the saline tissue bond runner next month because of her recent MRSA infection. Her MRSA ulcer right breast had healed in August. Surgery will be done under general anesthesia with a surgical observation overnight stay in the hospital. Because of her history of MRSA, I will culture the wound at the time of surgery. I will treat with Vancomycin and will place a PICC line for extended antibiotic usage because of her extensive history of breast infections. After surgery, if there is compromise with healing of the breast flaps, she can continue her HBO treatments. The patient was informed of the risks and complications of the procedure including alternatives to surgery. These were discussed with the patient personally. The patient voices understanding and wishes to proceed. Some of the risks and complications were included in a form from the [employer] [employer]. 05/08/18 1316 <Electronically signed by Sean Stevenson MD> Date Sean Stevenson MD Cosigner Signature: Date (if applicable) CC: Jonn Pedroza MD; Sean Stevenson MD; Eduardo Rubio DO Signed OPERATIVE REPORT Observed: 05/08/2018 Status: F Source: V[place]ER[place]AGEN 1:13 PM [facility] REPOSITORY [facility] Medical Records Department [address] [facility] [place] [address] Operative Report 05/05/18 2242 MR#: [id number] Acct: [id number] Name: ROBLES CARRASQUILLO Rep #: [id number] : 1970 48 From: Sean Stevenson MD PCP: Eduardo Rubio DO Status: DIS IN Y Location: TX3 [id number] Report of Operation Date of Procedure: 05/05/18 Pre-Operative Diagnosis: 1. Recurrent infections bilateral breasts. 2. Bilateral macromastia s/p breast reduction mammaplasty. 3. s/p completion mastectomy right breast. 4. Acquired absence right breast. 4. Disproportion reconstructed breasts. 5. Former smoker. 6. MRSA. 7. Nonhealing ulceration right breast reconstruction from heating pad usage. 8. Deformity right breast reconstruction with excess mastectomy skin scar contour deformity. Post-Operative Diagnosis: Same. Surgery/Procedure Performed:: 1. Delayed right breast reconstruction with removal of saline tissue bond runner with replacement cohesive gel implant (800 ml) and placement of Alloderm acellular dermal matrix graft inferolateral sling (132 cm2). 2. Revision reconstructed right breast with excision nonhealing ulcer and excess mastectomy skin scar contour deformity. Description of Surgical Findings:: 48 year old woman comes in today for further evaluation breast reconstruction after undergoing completion mastectomy right breast in 04/14. She has a history of recurrent breast infections bilaterally. Most recently she had developed MRSA in the right breast. She has had multiple operative drainage procedures both before and after her bilateral breast reduction mammaplasty in 10/15. She denies fever at present. She started the breast reconstruction process on 12/16/17 where she underwent 1st stage delayed right breast reconstruction with placement of submuscular saline tissue bond runner (800 ml) and placement DermACELL decellularized dermis graft (160 cm2). She tolerated the tissue expansion. Recently she developed an ulceration in the vertical incision secondary to a heating pad. Wound culture showed Kocuria kristinae and no antibiotics were given. She started wound care with antibiotic ointment daily. She was initially scheduled for breast reconstruction surgery last month. The surgery had to be postponed because her TSH was elevated to 16.5. Just recently it had decreased to 6.49 which is now acceptable for general anesthesia. Patient was informed of the risks and complications of the procedure including alternatives to surgery. These were discussed with the patient personally. Patient voices understanding and wishes to proceed. Some of the risks and complications were included in a form from the [employer]. IV Fluids - 2000 ml. Urine Output - 150 ml. I used [place] MemoryGel Breast Implant Smooth Round Ultra High Profile, (800 ml). Reference Number - [id number]. Lot Number - [id number]. Serial Number - [id number]. I used Alloderm Select Acellular Dermal Matrix Graft, Contour Medium, Perforated, Thick, (132 cm2). Reference Number - [id number]. Lot Number - [id number]. Expiration - May,. I used Kiya absorbable hemostat, (I used 2 vials). Reference Number - [id number]. Lot Number - [id number]. Expiration - January 24, 2023. line ordering clinician: Danita Das. Type of Anesthesia:: General Specimen's removed: 1. Right breast tissue to Pathology and Microbiology. 2. MRSA Wound DNA by PCR. Drains: Khalida x 2. Estimated Blood Loss (mL): 150 ml. Fluids Replaced: 2150 ml (IV Fluids 2000 ml, and Urine Output 150 ml). Description of Procedure: While the patient was in the preop area, markings were made from the sternal midline to the umbilicus. The inframammary folds were marked bilaterally. Also the excess mastectomy skin scar contour deformity was marked medially and laterally. She was then taken to the OR in supine position and placed under general anesthesia. Her breasts were prepped and draped in the usual fashion. A hartman catheter was placed. Using xylocaine with epinephrine, the markings on the right breast were infiltrated. After waiting 5 minutes for the anesthetic to take effect, a horizontal incision was made through the previous mastectomy scar down through the subcutaneous tissue until the capsule was seen. A capsulotomy was performed and the saline tissue bond runner was removed. No abnormal fluid collection was seen in the breast pocket. The medial side of the capsule was a little tight and a medial capsulotomy was performed to improve the shape and contour of the breast reconstruction. The previous acellular dermal matrix graft was not incorporated into the surrounding tissue and there was a separate capsular layer formed over the graft without any evidence of incorporation. This graft was removed. I then place a 650 ml high profile sizer into the breast pocket and closed the wound temporarily with surgical clips. The patient was placed in the sitting position. Good shape and contour was noted in the right breast but was much too small as compared to the left side. Patient was then placed back in the supine position and the bond runner was removed. I then tried a 750 ml high profile xtra sizer into the breast pocket. Once again it was noted to be much smaller. I then went to the largest one we have which is the 800 ml ultra high profile sizer. This one gave us the best contour and projection and good medial and superior shape and contour. However it was still less than the left breast. Since this was the largest implant that is not custom made, she will have to consider if she wants to proceed with left breast revision reconstruction next year. With her history of infections, right now she is declining any surgery on the left. So the 800 ml ultra high profile sizer was removed. I placed two size 15 Khalida drains through separate stab incisions inferiorly and laterally and secured to the skin with 3-0 Nylon tie over stent suture dressing. I sprayed Kiya absorbable hemostat into the breast wound to minimize seroma formation. I used two vials. I then place a piece of Alloderm Select acelluar dermal matrix graft, contour medium, perforated, thick, into the breast wound to provide support to the inferior aspect of the breast pocket. This graft was secured to the chest wall with 3-0 Vicryl simple interrupted sutures and vertical mattress interrupted sutures. I then placed the [place] MemoryGel Breast Implant, smooth round ultra high profile, (800 ml), into the breast pocket. One Khalida drain was used to drain the breast pocket and I used the other Khalida drain to drain the more superficial soft tissue of the breast. Good shape and contour was noted in the right breast reconstruction but it is a a little smaller than the left breast at this time. Once the implant was secruely in the breast pocket, I finished closing the acellular dermal matrix graft to the inferior aspect of the pectoralis muscle and fascia. I placed a small malleable into the breast pocket to protect the cohesive gel implant from getting injured from the suture needle. I then excised the excess mastectomy skin scar contour deformity. Due to a small bulge medially, I extended the incision across the sternal midline into the opposite breast and connected to the horizontal breast reduction scar. Hemostasis was obtained with electrocautery. The wounds were irrigated with saline. The breast tissue was sent to Pathology for analysis to rule out carcinoma and to Microbiology for culture. A MRSA Wound DNA by PCR was also done because of her history of MRSA. The breast wounds were then closed with 3-0 Vicryl figure of eight interrupted sutures for the deeper subcutaneous tissue and capsular layer. The deep dermis and subcutaneous tissue was approximated with 3-0 Monocryl interrupted sutures. The skin was approximated with 3-0 Prolene vertical mattress interrupted sutures followed by Histoacryl skin tissue adhesive. A Kerlix gauze dressing was applied followed by an ABD pad and a surgical bra. Patient tolerated the procedure well and was sent to PACU in satisfactory condition. She will be sent upstairs for postop care. With her history of MRSA, will need Vancomycin postoperatively. A PICC line will be placed for that purpose. The drains will be removed in 10-14 days. The sutures will be removed in 3-4 weeks. She will be discharged on antibiotics and pain medication. I will keep an eye on her right breast reconstruction postop. Depending on how well she is healing will determine the length of time she will need IV antibiotics. Grafts/Implants Used: [place] MemoryGel Breast Implant and Alloderm acellular dermal matrix graft. - Complications None. - Admit VTE Documentation VTE Present on Admission: No VTE Mechan Device Prophylaxis: SCD's VTE Pharm Prophylaxis ordered?: Yes Code Visit Surgery Charges CPT - 19270 ICD-10 - N61.1, Z90.11, Z40.01, N65.1, Z86.14, N65.0, L98.492, Z87.891 23270 N61.1, Z90.11, Z40.01, N65.0, L98.492, N65.1, Z86.14, Z87.891 33839 N61.1, Z90.11, Z40.01, N65.1, Z86.14, N65.0, L98.492, Z87.891 05/08/18 1313 <Electronically signed by Sean Stevenson MD> Date Sean Stevenson MD CC: Jonn Pedroza MD; Sean Stevenson MD; Eduardo Rubio DO Signed DISCHARGE INSTRUCTION Observed: 05/07/2018 Status: F Source: [place] 11:32 AM [facility] REPOSITORY [facility] Medical Records Department [address] [place] [address] Instructions for Home/Discharge Instructions 05/07/18 1126 MR#: [id number] Acct: [id number] Name: ROBLES CARRASQUILLO Rep #: [id number] : 1970 48 From: Sean Stevenson MD PCP: Eduardo Rubio DO Status: ADM IN You will use the following diet at home:: No restrictions Discharge Activity: May not drive while taking narcotic pain medications., May Not Shower - until the drain is removed., - - keep head elevated. no heavy lifting. May shower in (days): 14 - when the drains are removed. May resume sexual activity in: 10-14 days Weight Bearing Status: Weight bearing as tolerated Lifting Restrictions: 20 lbs. Keep extremity elevated above heart level: - - elevate head. Call your doctor if your incision/area has: Continuous Slow Oozing, Sudden Increased Bleeding, Increased Pain/ Swelling, Increased Redness, Foul Smelling Discharge, Swelling at the incision site Call your doctor if you observe: Fever of 101 or Higher, Coldness, Increased Pain, Shortness of breath, Chest pain, Calf discomfort, Uncontrolled pain Suture Line Care: - - dry dressings daily. Change Dressing in (Days):: 1 - dry dressings daily. Cleanse incision/area with: - - may get incisions wet in the shower after the drains are removed. Drain: Suction - khalida drain x 2 to bulb suction. empty and record output daily. Allergies/Adverse Reactions: Allergies codeine Allergy (Verified 04/07/18 11:11) Rash Penicillins Allergy (Verified 04/07/18 11:11) Rash NSAIDS (Non-Steroidal Anti-Inflamma Adverse Reaction (Verified 04/07/18 11:11) Other UNABLE TO TAKE DUE TO WEIGHT LOSS SURGERY Medications to take at Discharge Levothyroxine [Synthroid] 200 mcg PO DAILY 03/19/14 Calcium Carbonate/Vitamin D3 [Calcium 600-Vit D3 400 Caplet] 1 ea PO BID 08/15/15 Cholecalciferol (VIT D3) [Vitamin D3] 2,000 unit PO DAILY 08/15/15 Multivitamins,Ther W-Minerals [Multivitamin With Minerals] 1 tab PO DAILY 08/15/15 Nortriptyline HCl [Pamelor] 50 mg PO QHS 04/03/16 buPROPion XL [Wellbutrin Xl] 450 mg PO DAILY 04/18/17 Iron Polysaccharide Complex [Ferrex 150] 150 mg PO BID 05/01/17 Acetaminophen [Tylenol] 1,000 mg PO Q8H PRN #1 tab 05/06/17 Ascorbic Acid [Vitamin C] 1,000 mg PO BID 12/03/17 Fluoxetine HCl [Prozac] 40 mg PO DAILY 12/03/17 Magnesium 250 mg PO QHS 12/03/17 Docusate Sodium [Colace] 100 mg PO BID #60 cap 12/18/17 proMETHazine tablet [Phenergan tablet] 25 mg PO 4X/DAY PRN PRN #30 tab 12/18/17 Zolpidem Tartrate [Ambien] 10 mg PO QHS 04/07/18 Vancomycin IV 1,750 mg IV Q12H 40 Days #80 vial 05/06/18 Diazepam [Valium] 5 mg PO 4X/DAY PRN #20 tab 05/07/18 DiphenhydrAMINE [Benadryl] 50 mg PO 4X/DAY PRN capsule 05/07/18 HYDROmorphone tablet [Dilaudid] 2 - 4 mg PO 4X/DAY PRN PRN 5 Days #40 tab 05/07/18 The following prescriptions were given: HYDROmorphone tablet [Dilaudid] 2 - 4 mg PO 4X/DAY PRN PRN 5 Days #40 tab PRN Reason: Severe Pain (6-10/10) Vancomycin IV 1,750 mg IV Q12H 40 Days #80 vial Diazepam [Valium] 5 mg PO 4X/DAY PRN #20 tab PRN Reason: spasms Primary Care Physician: Eduardo Perkins DO [Primary Care Provider] - Test Results: Test results from this visit will be discussed in further detail at your follow-up appointment, if applicable. Please Follow Up With: Sean Stevenson MD When: one week. call [phone] for appt. Proposed Discharge Date: 05/07/18 05/07/18 1132 <Electronically signed by Sean Stevenson MD> Date Sean Stevenson MD CC: Jonn Pedroza MD; Eduardo Rubio DO BASIC METABOLIC Collected: 05/07/2018 Status: F Source: ROHINI PROFILE (BMP) 5:40 AM [facility] REPOSITORY TYPE CODE TESTS RESULT OUT OF RANGE REFERENCE UNITS LAB L501.0100 74-106 mg/dL Normal GLU 83 Result Comment: Please note revised GLUCOSE reference range effective 2017. LAB L501.1000 7-18 mg/dL Normal BUN 16 LAB L501.1100 0.55-1.02 mg/dL Low CREAT,SERUM 0.53 Result Comment: The validity of the calculated GFR AND GFRAA in patients over 70 years has not been determined. Clinical correlation is essential. LAB L501.1110 >60 mL/min Normal EST GFR 131 Result Comment: Non- GFR Calc LAB L501.1115 >60 mL/min Normal EST GFR - AA 159 Result Comment: GFR Calc LAB L501.1255 ml/min Normal Estimated CRCL 124.16 LAB L501.1300 10-20 RATIO High BUN/CRE 30.0 LAB L501.2200 8.5-10 mg/dL Low .1 CA 8.0 LAB L501.5300 136-14 mmol/L 5 NA Normal 144 LAB L501.5600 3.5-5. mmol/L 1 K Normal 4.0 LAB L501.5900 98-107 mmol/L CL Normal 106 LAB L501.6100 21.0-3 mmol/L 2.0 CO2 Normal 29.0 LAB L501.6200 5-15 GAP Normal 9 Performed By: #### L500.2500 #### [facility] [address] [place], [place], [id number] CBC-COMPLETE BLOOD CNT Collected: 05/07/2018 Status: F Source: ROHINI NO DIFF 5:40 AM [facility] REPOSITORY TYPE CODE TESTS RESULT OUT OF RANGE REFERENCE UNITS LAB L100.1000 4.4-11.0 K/mm3 Normal WBC 6.4 LAB L100.1200 4.2-5.4 M/mm3 Low RBC 3.73 LAB L100.1300 12.0-15.0 g/dl Low HGB 11.1 LAB L100.1400 37-47 % Low HCT 35.9 LAB L100.1500 81-99 fL Normal MCV 96.2 LAB L100.1600 27.0-32.0 pg Normal MCH 29.8 LAB L100.1700 32-36 g/gl Low MCHC 30.9 LAB L100.1810 11.6-14.6 % High RDW CV 16.0 LAB L100.1820 35.1-43.9 fl High RDW SD 54.4 LAB L100.1900 150-450 K/mm3 Normal PLT 212 LAB L100.2000 6.2-12.0 fl Normal MPV 10.4 Performed By: #### L100.0500 #### [facility] [address] [place], [place], [id number] VANCOMYCIN, TROUGH Collected: 05/06/2018 Status: F Source: ROHINI LEVEL 6:27 PM [facility] REPOSITORY Order Comment: Time Medication is to be Given? 1900 TYPE CODE TESTS RESULT OUT OF RANGE REFERENCE UNITS LAB L501.8820 5.0-15.0 ug/mL Normal VANCO, TROUGH 10.3 Result Comment: VANCOMYCIN STANDARED DRUG THERAPY TROUGH LEVEL: 5.0 - 15.0 mg/L VANCOMYCIN HIGH INTENSITY THERAPY TROUGH LEVEL: 15.0 - 20.0 mg/L High Intensity therapy recommended for serious life threatening infections include: - Meningitis -Endocarditis -Pneumonia (Ventilator/Healtcare Associated) -Sepsis PLEASE CONTACT PHARMACY SERVICES (#[id number]) FOR INTERPRETATION OF RESULTS. Performed By: #### L501.8820 #### [facility] [address] [place], [place], [address] BASIC METABOLIC Collected: 05/06/2018 Status: F Source: V[place]ERWAGEN PROFILE (BMP) 6:46 AM [facility] REPOSITORY TYPE CODE TESTS RESULT OUT OF RANGE REFERENCE UNITS LAB L501.0100 74-106 mg/dL Normal GLU 81 Result Comment: Please note revised GLUCOSE reference range effective 2017. LAB L501.1000 7-18 mg/dL Normal BUN 14 LAB L501.1100 0.55-1.02 mg/dL Normal CREAT,SERUM 0.63 Result Comment: The validity of the calculated GFR AND GFRAA in patients over 70 years has not been determined. Clinical correlation is essential. LAB L501.1110 >60 mL/min Normal EST GFR 108 Result Comment: Non- GFR Calc LAB L501.1115 >60 mL/min Normal EST GFR - AA 130 Result Comment: GFR Calc LAB L501.1255 ml/min Normal Estimated CRCL 104.45 LAB L501.1300 10-20 RATIO High BUN/CRE 22.2 LAB L501.2200 8.5-10 mg/dL Low .1 CA 8.3 LAB L501.5300 136-14 mmol/L 5 NA Normal 140 LAB L501.5600 3.5-5. mmol/L 1 K Normal 3.9 LAB L501.5900 98-107 mmol/L CL Normal 107 LAB L501.6100 21.0-3 mmol/L 2.0 CO2 Normal 26.0 LAB L501.6200 5-15 GAP Normal 7 Performed By: #### L500.2500, L506.0500 #### [facility] [address] [place], [address] PREALBUMIN Collected: 05/06/2018 Status: F Source: ROHINI 6:46 AM [facility] REPOSITORY TYPE CODE TESTS RESULT OUT OF RANGE REFERENCE UNITS LAB L506.0500 20.0-40.0 mg/dL Normal PREALBUMIN 29.5 Performed By: #### L500.2500, L506.0500 #### [facility] [address] [facility] [address] [address] [place], [place], [id number] CBC-COMPLETE BLOOD CNT Collected: 05/06/2018 Status: F Source: RHOINI NO DIFF 6:46 AM [facility] REPOSITORY TYPE CODE TESTS RESULT OUT OF RANGE REFERENCE UNITS LAB L100.1000 4.4-11.0 K/mm3 Normal WBC 9.9 LAB L100.1200 4.2-5.4 M/mm3 Low RBC 3.97 LAB L100.1300 12.0-15.0 g/dl Normal HGB 12.0 LAB L100.1400 37-47 % Normal HCT 37.8 LAB L100.1500 81-99 fL Normal MCV 95.2 LAB L100.1600 27.0-32.0 pg Normal MCH 30.2 LAB L100.1700 32-36 g/gl Low MCHC 31.7 LAB L100.1810 11.6-14.6 % High RDW CV 15.6 LAB L100.1820 35.1-43.9 fl High RDW SD 52.6 LAB L100.1900 150-450 K/mm3 Normal PLT 217 LAB L100.2000 6.2-12.0 fl Normal MPV 9.8 Performed By: #### L100.0500 #### [facility] [address] [facility] [address] [place], [place], [id number] MRSA WOUND DNA BY Collected: 05/05/2018 Status: F Source: ROHINI PCR 1:37 PM [facility] REPOSITORY Order Comment: Comments: COLECTED IN OR RIGHT BREAST TISSUE Specimen Source? SWAB, RIGHT BREAST TISSUE TYPE CODE TESTS RESULT OUT OF RANGE REFERENCE UNITS LAB L8200.1100 Negative Normal MRSA Negative RESULT LAB L8200.1150 Negative Normal SA RESULT NEGATIVE Performed By: #### L8200.1075 #### [facility] [address] [place], [place], [id number] Observed: 05/05/2018 Status: F Source: ROHINI CULTURE, DEEP WOUND 1:37 PM [facility] REPOSITORY Order Date: 04/30/17 Comments: COLLECTED IN OR RIGHT BREAST TISSUE Gram Stain Gram Stain No organisms seen Wound Culture No growth aerobically. Cult, Anaerobic No growth in 5 days. Performed By: #### M100.1500 #### [facility] [address] [place], [address] Observed: 05/05/2018 Status: F Source: ROHINI CULTURE, FUNGUS W/ 1:37 PM [id number] REPOSITORY Comments: COLLECTED IN OR RIGHT BREAST TISSUE Is this test to exclude patient from TB Isolation? N Cu,Iohelp2669 TESTING PERFORMED AT [facility]. ORIGINAL REPORT ON FILE IN LAB CONTAINS ADDITIONAL TEST SITE INFORMATION. CUF No yeast or mold isolated after [address] TESTING PERFORMED AT [facility]. ORIGINAL REPORT ON FILE IN LAB CONTAINS ADDITIONAL TEST SITE INFORMATION. Fungus Stain No yeast or mold observed. Performed By: #### M600.1900 #### [facility] [address] [place], [address] BREAST MASTECTOMY Observed: 05/05/2018 Status: F Source: ROHINI (CHOOSE SIDE 9:30 AM [facility] REPOSITORY Patient: ROBLES CARRASQUILLO : 1970 (48/F) Acct Num: [id number] Phys: Sean Stevenson MD Unit Num: [id number] Loc: MS3 [id number] Specimen: [id number] Received: 05/05/18 - 1602 Spec Type: BREAST TISSUES TISSUES: Right breast, NOS GROSS DESCRIPTION Received in fixative is one container labeled with the patient's name and designated right breast tissue. The specimen consists of two pieces of skin with underlying tissue measuring 15 x 4 cm and up to 6 cm in thickness and 12 x 3 cm and up to 3.5 cm in thickness. Also present in the container are two pieces of salazar, indurated tissue measuring in aggregate 13 x 8 x 0.4 cm. Reliner sections are submitted in four cassettes. Cassette 4 contains the detached pieces of indurated tissue. 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 MICROSCOPIC DIAGNOSIS Right breast tissue, reconstruction: Fragments of skin with underlying tissue and fibroconnective tissue with chronic inflammation, fibrosis, granulation tissue reaction and reactive changes. SJ:latha 05/07/18 Signed Andres Thomas 05/07/18 <signature on file> Performed By: #### PBREAST #### [facility] [address] [place], [place], [address] T3 TOTAL - TRIIODOTHYRONINE Collected: 04/27/2018 Status: F Source: ROHINI 2:55 PM [facility] REPOSITORY TYPE CODE TESTS RESULT OUT OF RANGE REFERENCE UNITS LAB L501.9186 0.6-1.81 ng/mL Normal T3 Total 0.75 Performed By: #### L501.9186 #### [facility] [address] [place], [address] THYROID STIM HORMONE Collected: 04/27/2018 Status: F Source: ROHINI (TSH) 2:55 PM [facility] REPOSITORY TYPE CODE TESTS RESULT OUT OF RANGE REFERENCE UNITS LAB L501.9520 0.358-3.74 uIU/mL High TSH 6.49 Performed By: #### L501.9520, L506.0400 #### [facility] [address] [place], [address] T4 FREE DIRECT Collected: 04/27/2018 Status: F Source: ROHINI 2:55 PM [facility] REPOSITORY TYPE CODE TESTS RESULT OUT OF RANGE REFERENCE UNITS LAB L506.0400 0.76-1.46 ng/dL Normal T4 FREE 0.95 DIRECT Performed By: #### L501.9520, L506.0400 #### [facility] [address] [facility] [place] [place], [address] PLASTIC SURGERY Observed: 04/24/2018 Status: F Source: V[place]ERWAGEN VISIT REPORT 5:48 PM [facility] REPOSITORY [facility] [address] [place] [address] OFFICE VISIT Date of Service: 03/12/18 MR#: [id number] Acct: [id number] Name: ROBLES CARRASQUILLO Mary Ellen Rep #: [id number] : 1970 Provider: Sean Stevenson MD Age/Sex: 48/F Location: [facility] Status: Signed Intake Vital Signs03/12/18 Height 5 ft 7 in 03/12/18 Weight: 280 lb 2 oz Intake Visit Reasons: postop surgery 12/16/17 Alining Inspector Required: No Accompanied by: Daughter Is patient in pain?: Yes (RIGHT BREAST PAIN TIGHT, PRESSURE AND NUMBNESS) Pain scale (1-10): 2 Allergies codeine Allergy (Verified 04/07/18 11:11) Rash Penicillins Allergy (Verified 04/07/18 11:11) Rash NSAIDS (Non-Steroidal Anti-Inflamma Adverse Reaction (Verified 04/07/18 11:11) Other Medications Levothyroxine [Synthroid] 175 mcg PO DAILY 03/19/14 [History Confirmed 04/07/18] Calcium Carbonate/Vitamin D3 [Calcium 600-Vit D3 400 Caplet] 1 ea PO BID 08/15/15 [History Confirmed 04/07/18] Cholecalciferol (VIT D3) [Vitamin D3] 2,000 unit PO DAILY 08/15/15 [History Confirmed 04/07/18] Multivitamins,Ther W-Minerals [Multivitamin With Minerals] 1 tab PO DAILY 08/15/15 [History Confirmed 04/07/18] Nortriptyline HCl [Pamelor] 50 mg PO QHS 04/03/16 [History Confirmed 04/07/18] buPROPion XL [Wellbutrin Xl] 450 mg PO DAILY 04/18/17 [History Confirmed 04/07/18] Iron Polysaccharide Complex [Ferrex 150] 150 mg PO BID 05/01/17 [History Confirmed 04/07/18] Acetaminophen [Tylenol] 1,000 mg PO Q8H PRN #1 tab 05/06/17 [Rx Confirmed 04/07/18] Ascorbic Acid [Vitamin C] 1,000 mg PO BID 12/03/17 [History Confirmed 04/07/18] Fluoxetine HCl [Prozac] 40 mg PO DAILY 12/03/17 [History Confirmed 04/07/18] Magnesium 250 mg PO QHS 12/03/17 [History Confirmed 04/07/18] Docusate Sodium [Colace] 100 mg PO BID #60 cap 12/18/17 [Rx Confirmed 04/07/18] proMETHazine tablet [Phenergan tablet] 25 mg PO 4X/DAY PRN PRN #30 tab 12/18/17 [Rx Confirmed 04/07/18] diazepam 5 mg tablet 5 mg PO 4X/DAY PRN #30 tab 01/16/18 [Rx Confirmed 04/07/18] Zolpidem Tartrate [Ambien] 10 mg PO QHS 04/07/18 [History Confirmed 04/07/18] PFSH Medical History Abscess (Acute) Anemia (Acute) Anxiety (Acute) BREAST LUMP/CYST (Acute) COMPROMISED BILATERAL BREAST REDUCTION NIPPLE GRAFTS (Acute) Depression (emotion) (Acute) Disproportion of reconstructed breast (Acute) Graves disease (Acute) Hypertriglyceridemia (Acute) Hypothyroidism (Acute 2001) MRSA (methicillin resistant staph aureus) culture positive (Acute) Metabolic syndrome (Acute) NONHEALING SURGICAL WOUND RIGHT BREAST (Acute) NONHEALING ULCER LEFT BREAST AT VERTICAL INCISION (Acute) Obesity (Acute) Ovarian cyst (Acute) RECURRENT INFECTED ULCER LEFT BREAST (Acute) RECURRENT NONHEALING INFECTED MRSA ULCER RIGHT BREAST (Acute) Seasonal allergies (Acute) Hypertension (Chronic) Surgical History BILATERAL BREAST REDUCTION MAMMAPLASTY (Acute) COMPLETE THYROIDECTOMY DUE TO GRAVES' DISEASE (Acute 11/2001) Delivered by section (Acute) EXCISIONAL DEBRIDEMENT RECURRENT NONHEALING INFECTED MRSA (Acute) EXCISIONL DEBRIDEMENT NONHEALING RECURRENT INFECTED ULCER (Acute) Gastric bypass status for obesity (Acute) HERNIA REPAIR WITH MESH (Acute 2014) History of bilateral ligation of fallopian tubes (Acute 2000) History of incisional hernia repair (Acute 07/03/10) History of tonsillectomy (Acute 12/2003) INCISION AND DRAINAGE BREAST ABSCESS (Acute) MASTOTOMY RIGHT BREAST (Acute) PANICULECTOMY (Acute 04/2013) S/P complete hysterectomy (Acute) SURGICAL PREPARATION AND REVISION BREAST RECONSTRUCTION (Acute) SURGICAL PREPARATION LEFT BREAST WITH MASTECTOMY (Acute) SURGICAL PREPARATION RIGHT BREAST (Acute) Family History Father , FROM MRSA AT AGE 50 Hypertension Hyperlipidemia Acute depression Diabetes Mother Asthma Grandmother Diabetes Heart disease Grandmother Hypertension Diabetes Grandfather Parkinson disease Brother Asthma Aunt Thyroid cancer Uncle Thyroid cancer Social History household members: significant other, children number of children: 2 current occupational status: unemployed Smoking Status: Former smoker second hand exposure: No alcohol intake: current details: BEER seatbelt use: always do you feel safe at home: Yes additional social history: SUN EXPOSURE: OCCASIONALLY HPI postop surgery 12/16/17: Details: Postop visit from her recent surgery on 12/16/17 where she underwent 1st stage delayed right breast reconstruction with placement of submuscular saline tissue bond runner (800 ml) and placement DermACELL decellularized dermis graft (160 cm2). She was discharged from the hospital on 12/18/17. Comes in today with a concern over a heating pad ulcer on her right breast reconstruction. She noticed a small scab on the central aspect in the vertical incision scar. The scabby ulcer measures 1 x 1 cm. Appears partial thickness at this time. The rest of the incisions are dry and intact. No redness seen. No evidence of infection at this time. No clinical evidence of seroma at this time. She has been wearing her binder consistently. A wound culture was obtained. She will apply antibiotic ointment to the scabby ulcer daily. She has been wearing her binder consistently lately. Pathology showed no malignancy present. There will be no expansion today. She is at 750 ml saline in an 800 ml bond runner. May stop expanding and prepare for the next stage in her breast reconstruction process which is removal of the bond runner with replacement cohesive gel implant. Will also need to revise her reconstructed breast deformity with excision of this scabby ulceration and excision excess mastectomy skin scar contour deformity. Should be able to close the wound with advancement of her breast skin flaps. Depending on the size of the skin envelope after the excision and closure will determine the size of the final implant at the time of the surgery. Will schedule this surgery next month. At the time of surgery, she will be treated with IV Vancomycin because of her history of MRSA. In the meantime, a positive culture will necessitate antibiotic therapy. Continue her chest wall binder for compression. Patient was informed of the risks and complications of the procedure including alternatives to surgery. These were discussed with the patient personally. Patient voices understanding and wishes to proceed. Some of the risks and complications were included in a form from the [employer]. Followup after her surgery. Assessment AND Plan Problems 1. Abscess of right breast N61.1 2. 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 Disproportion of reconstructed breast N65.1 5. History of MRSA infection Z86.14 6. 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, [address] PROTHROMBIN TIME W/INR Collected: 04/09/2018 Status: F Source: ROHINI 12:28 PM [facility] REPOSITORY TYPE CODE TESTS RESULT OUT OF RANGE REFERENCE UNITS LAB L300.4150 11.7-14.9 SECONDS Normal PROTIME 12.5 LAB L300.4200 Normal INR 0.9 Performed By: #### L300.3900, L300.4310 #### [facility] [address] [place], [place], [address] PARTIAL THROMBOPLAST Collected: 04/09/2018 Status: F Source: ROHINI TIME 12:28 PM [facility] REPOSITORY TYPE CODE TESTS RESULT OUT OF RANGE REFERENCE UNITS LAB L300.4310 24.1-36.2 Seconds Normal PTT 31.8 Performed By: #### L300.3900, L300.4310 #### [facility] [address] [place], [address] CBC W/DIFF, AUTOMATED Collected: 04/09/2018 Status: F Source: [place] 12:28 PM [facility] REPOSITORY TYPE CODE TESTS RESULT OUT OF RANGE REFERENCE UNITS LAB L100.1000 4.4-11.0 K/mm3 Normal WBC 7.8 LAB L100.1200 4.2-5.4 M/mm3 Normal RBC 4.44 LAB L100.1300 12.0-15.0 g/dl Normal HGB 13.2 LAB L100.1400 37-47 % Normal HCT 41.9 LAB L100.1500 81-99 fL Normal MCV 94.4 LAB L100.1600 27.0-32.0 pg Normal MCH 29.7 LAB L100.1700 32-36 g/gl Low MCHC 31.5 LAB L100.1810 11.6-14.6 % High RDW CV 14.9 LAB L100.1820 35.1-43.9 fl High RDW SD 49.3 LAB L100.1900 150-450 K/mm3 Normal PLT 291 LAB L100.2000 6.2-12.0 fl Normal MPV 10.4 LAB L100.2100 47-70 % Normal NEUT% 62.8 LAB L100.2200 19-41 % Normal LY% 27.3 LAB L100.2300 0-10 % Normal MONO% 7.0 LAB L100.2400 0-5 % Normal EO% 2.4 LAB L100.2500 0-1 % Normal BASO% 0.4 LAB L100.2550 0.0-0.9 % Normal IM GRAN % 0.100 Result Comment: IG% - Immature Granulocytes (promyelocytes, myelocytes and metamyelocytes) > 1% indicates that a LEFT SHIFT is Present. LAB L100.2620 2.0-7.7 X10 3/uL Normal Absolute Neut 4.9 LAB L100.2720 0.83-4.51 X10 3/ul Normal Absolute Lymph 2.12 Performed By: #### L100.0100 #### [facility] [place], [address] LIVER PROFILE Collected: 04/09/2018 Status: F Source: [place] 12:28 PM [facility] REPOSITORY TYPE CODE TESTS RESULT OUT OF RANGE REFERENCE UNITS LAB L501.1500 6.4-8.2 g/dL Normal T PROT 7.3 LAB L501.1800 3.2-5.0 g/dL Normal ALB 3.5 LAB L501.1950 2.2-4.2 g/dL Normal GLOB 3.8 LAB L501.4100 15-37 U/L Normal AST 20 LAB L501.4305 45-117 U/L Normal ALK P 73 LAB L501.4405 13-56 U/L Normal ALT 26 LAB L501.4600 0.20-1.00 mg/dL Low T BILI 0.10 LAB L501.4700 0.00-0.30 mg/dL Normal D BILI 0.06 Performed By: #### L500.3400, L501.9520 #### [facility] [address] [place], [address] THYROID STIM HORMONE Collected: 04/09/2018 Status: F Source: ROHINI (TSH) 12:28 PM [facility] REPOSITORY TYPE CODE TESTS RESULT OUT OF RANGE REFERENCE UNITS LAB L501.9520 0.358-3.74 uIU/mL High TSH 14.80 Performed By: #### L500.3400, L501.9520 #### [facility] [address] [place], [address] Observed: 03/12/2018 Status: F Source: ROHINI CULTURE, SURGERY DEEP 4:18 PM [facility] WOUND REPOSITORY List Antibiotics Last 48 Hours? UNK List Antibiotics to be Started? UNK Gram Stain Gram Stain Rare White Blood Cells No organisms seen Wound Culture There are no CLSI standards for interpretation of this Drug/Organism combination. Clinical correlation necessary, Possible skin contamination. ORGANISM 1: Kocuria kristinae Amount Growth Rare Cult, Anaerobic No growth in 5 days. Performed By: #### M100.1550 #### [facility] [address] [place], [place], [address] PLASTIC SURGERY Observed: 02/27/2018 Status: F Source: ROHINI VISIT REPORT 5:09 PM [facility] REPOSITORY [facility] [address] [place] [address] OFFICE VISIT Date of Service: 02/11/18 MR#: [id number] Acct: [id number] Name: JASMINDARWIN HOFFSandra Hyde Rep #: [id number] : 1970 Provider: Sean Stevenson MD Age/Sex: 48/F Location: [facility] Status: Signed Intake Vital Signs02/11/18 Height 5 ft 7 in 02/11/18 Weight: 284 lb 02/11/18 Body Mass Index (BMI) 44.4 02/11/18 Respiratory Rate 16 Intake Visit Reasons: postop surgery 12/16/17 Alining Inspector Required: No Accompanied by: None Is patient in pain?: Yes (RIGHT AXILLA AND SHOULDER PAIN ACHING) Pain scale (1-10): 3 Allergies codeine Allergy (Verified 02/25/18 08:55) Rash Penicillins Allergy (Verified 02/25/18 08:55) Rash NSAIDS (Non-Steroidal Anti-Inflamma Adverse Reaction (Verified 02/25/18 08:55) Other Medications Levothyroxine [Synthroid] 175 mcg PO DAILY 03/19/14 [History Confirmed 02/25/18] Calcium Carbonate/Vitamin D3 [Calcium 600-Vit D3 400 Caplet] 1 ea PO BID 08/15/15 [History Confirmed 02/25/18] Cholecalciferol (VIT D3) [Vitamin D3] 2,000 unit PO DAILY 08/15/15 [History Confirmed 02/25/18] Multivitamins,Ther W-Minerals [Multivitamin With Minerals] 1 tab PO DAILY 08/15/15 [History Confirmed 02/25/18] Nortriptyline HCl [Pamelor] 50 mg PO QHS 04/03/16 [History Confirmed 02/25/18] buPROPion XL [Wellbutrin Xl] 450 mg PO DAILY 04/18/17 [History Confirmed 02/25/18] Iron Polysaccharide Complex [Ferrex 150] 150 mg PO BID 05/01/17 [History Confirmed 02/25/18] Acetaminophen [Tylenol] 1,000 mg PO Q8H PRN #1 tab 05/06/17 [Rx Confirmed 02/25/18] Ascorbic Acid [Vitamin C] 1,000 mg PO BID 12/03/17 [History Confirmed 02/25/18] Fluoxetine HCl [Prozac] 40 mg PO DAILY 12/03/17 [History Confirmed 02/25/18] Magnesium 250 mg PO QHS 12/03/17 [History Confirmed 02/25/18] Zolpidem Tartrate [Ambien] 10 mg PO QHS 12/03/17 [History Confirmed 02/25/18] Docusate Sodium [Colace] 100 mg PO BID #60 cap 12/18/17 [Rx Confirmed 02/25/18] proMETHazine tablet [Phenergan tablet] 25 mg PO 4X/DAY PRN PRN #30 tab 12/18/17 [Rx Confirmed 02/25/18] diazepam 5 mg tablet 5 mg PO 4X/DAY PRN #30 tab 01/16/18 [Rx Confirmed 02/25/18] doxycycline hyclate 100 mg capsule 100 mg PO BID #28 cap 02/11/18 [Rx Confirmed 02/25/18] hydromorphone 2 mg tablet 2 mg PO 4X/DAY PRN #30 tab 02/25/18 [Rx Confirmed 02/25/18] PFSH Medical History Abscess (Acute) Anemia (Acute) Anxiety (Acute) BREAST LUMP/CYST (Acute) COMPROMISED BILATERAL BREAST REDUCTION NIPPLE GRAFTS (Acute) Depression (emotion) (Acute) Disproportion of reconstructed breast (Acute) Graves disease (Acute) Hypertriglyceridemia (Acute) Hypothyroidism (Acute 2001) MRSA (methicillin resistant staph aureus) culture positive (Acute) Metabolic syndrome (Acute) NONHEALING SURGICAL WOUND RIGHT BREAST (Acute) NONHEALING ULCER LEFT BREAST AT VERTICAL INCISION (Acute) Obesity (Acute) Ovarian cyst (Acute) RECURRENT INFECTED ULCER LEFT BREAST (Acute) RECURRENT NONHEALING INFECTED MRSA ULCER RIGHT BREAST (Acute) Seasonal allergies (Acute) Hypertension (Chronic) Surgical History BILATERAL BREAST REDUCTION MAMMAPLASTY (Acute) COMPLETE THYROIDECTOMY DUE TO GRAVES' DISEASE (Acute 11/2001) Delivered by section (Acute) EXCISIONAL DEBRIDEMENT RECURRENT NONHEALING INFECTED MRSA (Acute) EXCISIONL DEBRIDEMENT NONHEALING RECURRENT INFECTED ULCER (Acute) Gastric bypass status for obesity (Acute) HERNIA REPAIR WITH MESH (Acute 2014) History of bilateral ligation of fallopian tubes (Acute 2000) History of incisional hernia repair (Acute 07/03/10) History of tonsillectomy (Acute 12/2003) INCISION AND DRAINAGE BREAST ABSCESS (Acute) MASTOTOMY RIGHT BREAST (Acute) PANICULECTOMY (Acute 04/2013) S/P complete hysterectomy (Acute) SURGICAL PREPARATION AND REVISION BREAST RECONSTRUCTION (Acute) SURGICAL PREPARATION LEFT BREAST WITH MASTECTOMY (Acute) SURGICAL PREPARATION RIGHT BREAST (Acute) Family History Father , FROM MRSA AT AGE 50 Hypertension Hyperlipidemia Acute depression Diabetes Mother Asthma Grandmother Diabetes Heart disease Grandmother Hypertension Diabetes Grandfather Parkinson disease Brother Asthma Aunt Thyroid cancer Uncle Thyroid cancer Social History household members: significant other, children number of children: 2 current occupational status: unemployed Smoking Status: Current every day smoker second hand exposure: No alcohol intake: current details: BEER seatbelt use: always do you feel safe at home: Yes additional social history: SUN EXPOSURE: OCCASIONALLY HPI postop surgery 12/16/17: Details: Postop visit from her recent surgery on 12/16/17 where she underwent 1st stage delayed right breast reconstruction with placement of submuscular saline tissue bond runner (800 ml) and placement DermACELL decellularized dermis graft (160 cm2). She was discharged from the hospital on 12/18/17. Comes in today with some discomfort in her right breast reconstruction. Incision is dry and intact. Less seroma present. The small area of redness medially is less red and is more pink in color. Away from the incision. She has been wearing her binder consistently lately. The remaining seroma should absorb with the tissue expansion process. If not it can be drained at the time of the implant exchange unless it gets infected in the mean time. She is finished with her Vancomycin. The small area of redness started after stopping the IV Vancomycin. Will hold off on tissue expansion today. Would like to see more improvement in that area medially. Renewed her Doxycycline (28 tabs) and 2 refills. Operative culture was negative. Because of her previous history of MRSA, continue Doxycycline. Pathology showed no malignancy present. Renewed her Dilaudid for pain (30 tabs). Continue her chest wall binder for compression. Followup 2 weeks. Will reassess at that time to continue the saline tissue expansion. Assessment AND Plan Problems 1. Abscess of right breast N61.1 2. 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 History of MRSA infection Z86.14 5. 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 History of MRSA infection Z86.14 Former smoker Z87.891 02/27/18 1709 <Electronically signed by Sean Stevenson MD> Date Sean Stevenson MD Cosigner Signature: Date (if applicable) CC: PLASTIC SURGERY Observed: 02/25/2018 Status: F Source: [place] VISIT REPORT 2:45 PM [facility] REPOSITORY [facility] [address] [place] [address] OFFICE VISIT Date of Service: 02/25/18 MR#: [id number] Acct: [id number] Name: ROBLES CARRASQUILLO Rep #: [id number] : 1970 Provider: Sean Stevenson MD Age/Sex: 48/F Location: [facility] Status: Signed Intake Vital Signs02/25/18 Height 5 ft 7 in 02/25/18 Weight: 278 lb 8 oz Intake Visit Reasons: postop surgery 12/16/17 Alining Inspector Required: No Accompanied by: None Is patient in pain?: Yes (BREAST PAIN ACHING ) Pain scale (1-10): 4 Allergies codeine Allergy (Verified 02/25/18 08:55) Rash Penicillins Allergy (Verified 02/25/18 08:55) Rash NSAIDS (Non-Steroidal Anti-Inflamma Adverse Reaction (Verified 02/25/18 08:55) Other Medications Levothyroxine [Synthroid] 175 mcg PO DAILY 03/19/14 [History Confirmed 02/25/18] Calcium Carbonate/Vitamin D3 [Calcium 600-Vit D3 400 Caplet] 1 ea PO BID 08/15/15 [History Confirmed 02/25/18] Cholecalciferol (VIT D3) [Vitamin D3] 2,000 unit PO DAILY 08/15/15 [History Confirmed 02/25/18] Multivitamins,Ther W-Minerals [Multivitamin With Minerals] 1 tab PO DAILY 08/15/15 [History Confirmed 02/25/18] Nortriptyline HCl [Pamelor] 50 mg PO QHS 04/03/16 [History Confirmed 02/25/18] buPROPion XL [Wellbutrin Xl] 450 mg PO DAILY 04/18/17 [History Confirmed 02/25/18] Iron Polysaccharide Complex [Ferrex 150] 150 mg PO BID 05/01/17 [History Confirmed 02/25/18] Acetaminophen [Tylenol] 1,000 mg PO Q8H PRN #1 tab 05/06/17 [Rx Confirmed 02/25/18] Ascorbic Acid [Vitamin C] 1,000 mg PO BID 12/03/17 [History Confirmed 02/25/18] Fluoxetine HCl [Prozac] 40 mg PO DAILY 12/03/17 [History Confirmed 02/25/18] Magnesium 250 mg PO QHS 12/03/17 [History Confirmed 02/25/18] Zolpidem Tartrate [Ambien] 10 mg PO QHS 12/03/17 [History Confirmed 02/25/18] Docusate Sodium [Colace] 100 mg PO BID #60 cap 12/18/17 [Rx Confirmed 02/25/18] proMETHazine tablet [Phenergan tablet] 25 mg PO 4X/DAY PRN PRN #30 tab 12/18/17 [Rx Confirmed 02/25/18] diazepam 5 mg tablet 5 mg PO 4X/DAY PRN #30 tab 01/16/18 [Rx Confirmed 02/25/18] doxycycline hyclate 100 mg capsule 100 mg PO BID #28 cap 02/11/18 [Rx Confirmed 02/25/18] hydromorphone 2 mg tablet 2 mg PO 4X/DAY PRN #30 tab 02/25/18 [Rx Confirmed 02/25/18] PFSH Medical History Abscess (Acute) Anemia (Acute) Anxiety (Acute) BREAST LUMP/CYST (Acute) COMPROMISED BILATERAL BREAST REDUCTION NIPPLE GRAFTS (Acute) Depression (emotion) (Acute) Disproportion of reconstructed breast (Acute) Graves disease (Acute) Hypertriglyceridemia (Acute) Hypothyroidism (Acute 2001) MRSA (methicillin resistant staph aureus) culture positive (Acute) Metabolic syndrome (Acute) NONHEALING SURGICAL WOUND RIGHT BREAST (Acute) NONHEALING ULCER LEFT BREAST AT VERTICAL INCISION (Acute) Obesity (Acute) Ovarian cyst (Acute) RECURRENT INFECTED ULCER LEFT BREAST (Acute) RECURRENT NONHEALING INFECTED MRSA ULCER RIGHT BREAST (Acute) Seasonal allergies (Acute) Hypertension (Chronic) Surgical History BILATERAL BREAST REDUCTION MAMMAPLASTY (Acute) COMPLETE THYROIDECTOMY DUE TO GRAVES' DISEASE (Acute 11/2001) Delivered by section (Acute) EXCISIONAL DEBRIDEMENT RECURRENT NONHEALING INFECTED MRSA (Acute) EXCISIONL DEBRIDEMENT NONHEALING RECURRENT INFECTED ULCER (Acute) Gastric bypass status for obesity (Acute) HERNIA REPAIR WITH MESH (Acute 2014) History of bilateral ligation of fallopian tubes (Acute 2000) History of incisional hernia repair (Acute 07/03/10) History of tonsillectomy (Acute 12/2003) INCISION AND DRAINAGE BREAST ABSCESS (Acute) MASTOTOMY RIGHT BREAST (Acute) PANICULECTOMY (Acute 04/2013) S/P complete hysterectomy (Acute) SURGICAL PREPARATION AND REVISION BREAST RECONSTRUCTION (Acute) SURGICAL PREPARATION LEFT BREAST WITH MASTECTOMY (Acute) SURGICAL PREPARATION RIGHT BREAST (Acute) Family History Father , FROM MRSA AT AGE 50 Hypertension Hyperlipidemia Acute depression Diabetes Mother Asthma Grandmother Diabetes Heart disease Grandmother Hypertension Diabetes Grandfather Parkinson disease Brother Asthma Aunt Thyroid cancer Uncle Thyroid cancer Social History household members: significant other, children number of children: 2 current occupational status: unemployed Smoking Status: Current every day smoker second hand exposure: No alcohol intake: current details: BEER seatbelt use: always do you feel safe at home: Yes additional social history: SUN EXPOSURE: OCCASIONALLY HPI postop surgery 12/16/17: Details: Postop visit from her recent surgery on 12/16/17 where she underwent 1st stage delayed right breast reconstruction with placement of submuscular saline tissue bond runner (800 ml) and placement DermACELL decellularized dermis graft (160 cm2). She was discharged from the hospital on 12/18/17. Comes in today with no complaints. Incision is dry and intact. Less seroma present. The small area of redness medially has resolved. Away from the incision. She has been wearing her binder consistently lately. The remaining seroma should absorb with the tissue expansion process. If not it can be drained at the time of the implant exchange unless it gets infected in the mean time. She had finished her Vancomycin and the small area of redness started after stopping the IV Vancomycin. She started on Doxycycline with resolution of the redness. The operative culture was negative. She was placed on Vancomycin for her previous history of MRSA. Pathology showed no malignancy present. She is ready to continue the saline tissue expansion process. PROCEDURE Using a magnetic finder, the port was localized and the skin was prepped with alcohol and infiltrated with xylocaine with epinephrine. I then prepped the right breast with Betadine. Using sterile draping and sterile gloves, I injected sterile saline into the right breast tissue bond runner without difficulty. I injected 250 ml for a total of 750 ml saline in an 800 ml bond runner. She tolerated the procedure well. Will apply antibiotic ointment to the puncture site daily for 3 days. Continue the Doxycycline for 3 days. Renewed her Dilaudid for pain (30 tabs). Continue her chest wall binder for compression. Followup 2 weeks. She can have one more expansion. Assessment AND Plan Problems 1. Abscess of right breast N61.1 2. 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 History of MRSA infection Z86.14 5. 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 Status: Signed Intake Vital Signs02/04/18 Height 5 ft 7 in 02/04/18 Weight: 284 lb 8 oz 02/04/18 Body Mass Index (BMI) 44.5 02/04/18 Respiratory Rate 16 Intake Visit Reasons: postop surgery 12/16/17 Alining Inspector Required: No Accompanied by: None Is patient in pain?: Yes (BREAST PAIN FEELS TIGHT ) Pain scale (1-10): 3 Allergies codeine Allergy (Verified 02/11/18 15:07) Rash Penicillins Allergy (Verified 02/11/18 15:07) Rash NSAIDS (Non-Steroidal Anti-Inflamma Adverse Reaction (Verified 02/11/18 15:07) Other Medications Levothyroxine [Synthroid] 175 mcg PO DAILY 03/19/14 [History Confirmed 01/10/18] Calcium Carbonate/Vitamin D3 [Calcium 600-Vit D3 400 Caplet] 1 ea PO BID 08/15/15 [History Confirmed 01/10/18] Cholecalciferol (VIT D3) [Vitamin D3] 2,000 unit PO DAILY 08/15/15 [History Confirmed 01/10/18] Multivitamins,Ther W-Minerals [Multivitamin With Minerals] 1 tab PO DAILY 08/15/15 [History Confirmed 01/10/18] Nortriptyline HCl [Pamelor] 50 mg PO QHS 04/03/16 [History Confirmed 01/10/18] buPROPion XL [Wellbutrin Xl] 450 mg PO DAILY 04/18/17 [History Confirmed 01/10/18] Iron Polysaccharide Complex [Ferrex 150] 150 mg PO BID 05/01/17 [History Confirmed 01/10/18] Acetaminophen [Tylenol] 1,000 mg PO Q8H PRN #1 tab 05/06/17 [Rx Confirmed 01/10/18] Ascorbic Acid [Vitamin C] 1,000 mg PO BID 12/03/17 [History Confirmed 01/10/18] Fluoxetine HCl [Prozac] 40 mg PO DAILY 12/03/17 [History Confirmed 01/10/18] Magnesium 250 mg PO QHS 12/03/17 [History Confirmed 01/10/18] Zolpidem Tartrate [Ambien] 10 mg PO QHS 12/03/17 [History Confirmed 01/10/18] Docusate Sodium [Colace] 100 mg PO BID #60 cap 12/18/17 [Rx Confirmed 01/10/18] proMETHazine tablet [Phenergan tablet] 25 mg PO 4X/DAY PRN PRN #30 tab 12/18/17 [Rx Confirmed 01/10/18] diazepam 5 mg tablet 5 mg PO 4X/DAY PRN #30 tab 01/16/18 [Rx Confirmed 01/16/18] doxycycline hyclate 100 mg capsule 100 mg PO BID #28 cap 02/11/18 [Rx Confirmed 02/11/18] PFSH Medical History Abscess (Acute) Anemia (Acute) Anxiety (Acute) BREAST LUMP/CYST (Acute) COMPROMISED BILATERAL BREAST REDUCTION NIPPLE GRAFTS (Acute) Depression (emotion) (Acute) Disproportion of reconstructed breast (Acute) Graves disease (Acute) Hypertriglyceridemia (Acute) Hypothyroidism (Acute 2001) MRSA (methicillin resistant staph aureus) culture positive (Acute) Metabolic syndrome (Acute) NONHEALING SURGICAL WOUND RIGHT BREAST (Acute) NONHEALING ULCER LEFT BREAST AT VERTICAL INCISION (Acute) Obesity (Acute) Ovarian cyst (Acute) RECURRENT INFECTED ULCER LEFT BREAST (Acute) RECURRENT NONHEALING INFECTED MRSA ULCER RIGHT BREAST (Acute) Seasonal allergies (Acute) Hypertension (Chronic) Surgical History BILATERAL BREAST REDUCTION MAMMAPLASTY (Acute) COMPLETE THYROIDECTOMY DUE TO GRAVES' DISEASE (Acute 11/2001) Delivered by section (Acute) EXCISIONAL DEBRIDEMENT RECURRENT NONHEALING INFECTED MRSA (Acute) EXCISIONL DEBRIDEMENT NONHEALING RECURRENT INFECTED ULCER (Acute) Gastric bypass status for obesity (Acute) HERNIA REPAIR WITH MESH (Acute 2014) History of bilateral ligation of fallopian tubes (Acute 2000) History of incisional hernia repair (Acute 07/03/10) History of tonsillectomy (Acute 12/2003) INCISION AND DRAINAGE BREAST ABSCESS (Acute) MASTOTOMY RIGHT BREAST (Acute) PANICULECTOMY (Acute 04/2013) S/P complete hysterectomy (Acute) SURGICAL PREPARATION AND REVISION BREAST RECONSTRUCTION (Acute) SURGICAL PREPARATION LEFT BREAST WITH MASTECTOMY (Acute) SURGICAL PREPARATION RIGHT BREAST (Acute) Family History Father , FROM MRSA AT AGE 50 Hypertension Hyperlipidemia Acute depression Diabetes Mother Asthma Grandmother Diabetes Heart disease Grandmother Hypertension Diabetes Grandfather Parkinson disease Brother Asthma Aunt Thyroid cancer Uncle Thyroid cancer Social History household members: significant other, children number of children: 2 current occupational status: unemployed Smoking Status: Current every day smoker second hand exposure: No alcohol intake: current details: BEER seatbelt use: always do you feel safe at home: Yes additional social history: SUN EXPOSURE: OCCASIONALLY HPI postop surgery 12/16/17: Details: Postop visit from her recent surgery on 12/16/17 where she underwent 1st stage delayed right breast reconstruction with placement of submuscular saline tissue bond runner (800 ml) and placement DermACELL decellularized dermis graft (160 cm2). She was discharged from the hospital on 12/18/17. Comes in today with no complaints. Incision is dry and intact. Less seroma present. There is a small area of redness medially. Away from the incision. She has been wearing her binder consistently lately. The remaining seroma should absorb with the tissue expansion process. If not it can be drained at the time of the implant exchange unless it gets infected in the mean time. She had finished her Vancomycin last week and the PICC line was pulled. The small area of redness started after stopping the IV Vancomycin. She is ready to begin the saline tissue expansion process. PROCEDURE Using a magnetic finder, the port was localized and the skin was prepped with alcohol and infiltrated with xylocaine with epinephrine. I then prepped the right breast with Betadine. Using sterile draping and sterile gloves, I injected sterile saline into the right breast tissue bond runner without difficulty. I injected 250 ml for a total of 500 ml saline in an 800 ml bond runner. She tolerated the procedure well. Will apply antibiotic ointment to the puncture site daily for 3 days. Operative culture was negative. Because of her previous history of MRSA and because of her small area of redness medially, restarted her Doxycycilne. Pathology showed no malignancy present. Renewed her Dilaudid for pain (30 tabs). Continue her chest wall binder for compression. Followup 2 weeks. Will continue the saline tissue expansion at this time. Assessment AND Plan Problems 1. Abscess of right breast N61.1 2. 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 History of MRSA infection Z86.14 5. 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 Status: Signed Intake Vital Signs01/16/18 Height 5 ft 7 in 01/16/18 Weight: 184 lb 4 oz Intake Visit Reasons: postop surgery 12/16/17 Alining Inspector Required: No Accompanied by: None Is patient in pain?: Yes (RIGHT BREAST PAIN TIGHT AND ACHING ) Pain scale (1-10): 5 Allergies codeine Allergy (Verified 02/11/18 15:07) Rash Penicillins Allergy (Verified 02/11/18 15:07) Rash NSAIDS (Non-Steroidal Anti-Inflamma Adverse Reaction (Verified 02/11/18 15:07) Other Medications Levothyroxine [Synthroid] 175 mcg PO DAILY 03/19/14 [History Confirmed 01/10/18] Calcium Carbonate/Vitamin D3 [Calcium 600-Vit D3 400 Caplet] 1 ea PO BID 08/15/15 [History Confirmed 01/10/18] Cholecalciferol (VIT D3) [Vitamin D3] 2,000 unit PO DAILY 08/15/15 [History Confirmed 01/10/18] Multivitamins,Ther W-Minerals [Multivitamin With Minerals] 1 tab PO DAILY 08/15/15 [History Confirmed 01/10/18] Nortriptyline HCl [Pamelor] 50 mg PO QHS 04/03/16 [History Confirmed 01/10/18] buPROPion XL [Wellbutrin Xl] 450 mg PO DAILY 04/18/17 [History Confirmed 01/10/18] Iron Polysaccharide Complex [Ferrex 150] 150 mg PO BID 05/01/17 [History Confirmed 01/10/18] Acetaminophen [Tylenol] 1,000 mg PO Q8H PRN #1 tab 05/06/17 [Rx Confirmed 01/10/18] Ascorbic Acid [Vitamin C] 1,000 mg PO BID 12/03/17 [History Confirmed 01/10/18] Fluoxetine HCl [Prozac] 40 mg PO DAILY 12/03/17 [History Confirmed 01/10/18] Magnesium 250 mg PO QHS 12/03/17 [History Confirmed 01/10/18] Zolpidem Tartrate [Ambien] 10 mg PO QHS 12/03/17 [History Confirmed 01/10/18] Docusate Sodium [Colace] 100 mg PO BID #60 cap 12/18/17 [Rx Confirmed 01/10/18] proMETHazine tablet [Phenergan tablet] 25 mg PO 4X/DAY PRN PRN #30 tab 12/18/17 [Rx Confirmed 01/10/18] diazepam 5 mg tablet 5 mg PO 4X/DAY PRN #30 tab 01/16/18 [Rx Confirmed 01/16/18] doxycycline hyclate 100 mg capsule 100 mg PO BID #28 cap 02/11/18 [Rx Confirmed 02/11/18] PFSH Medical History Abscess (Acute) Anemia (Acute) Anxiety (Acute) BREAST LUMP/CYST (Acute) COMPROMISED BILATERAL BREAST REDUCTION NIPPLE GRAFTS (Acute) Depression (emotion) (Acute) Disproportion of reconstructed breast (Acute) Graves disease (Acute) Hypertriglyceridemia (Acute) Hypothyroidism (Acute 2001) MRSA (methicillin resistant staph aureus) culture positive (Acute) Metabolic syndrome (Acute) NONHEALING SURGICAL WOUND RIGHT BREAST (Acute) NONHEALING ULCER LEFT BREAST AT VERTICAL INCISION (Acute) Obesity (Acute) Ovarian cyst (Acute) RECURRENT INFECTED ULCER LEFT BREAST (Acute) RECURRENT NONHEALING INFECTED MRSA ULCER RIGHT BREAST (Acute) Seasonal allergies (Acute) Hypertension (Chronic) Surgical History BILATERAL BREAST REDUCTION MAMMAPLASTY (Acute) COMPLETE THYROIDECTOMY DUE TO GRAVES' DISEASE (Acute 11/2001) Delivered by section (Acute) EXCISIONAL DEBRIDEMENT RECURRENT NONHEALING INFECTED MRSA (Acute) EXCISIONL DEBRIDEMENT NONHEALING RECURRENT INFECTED ULCER (Acute) Gastric bypass status for obesity (Acute) HERNIA REPAIR WITH MESH (Acute 2014) History of bilateral ligation of fallopian tubes (Acute 2000) History of incisional hernia repair (Acute 07/03/10) History of tonsillectomy (Acute 12/2003) INCISION AND DRAINAGE BREAST ABSCESS (Acute) MASTOTOMY RIGHT BREAST (Acute) PANICULECTOMY (Acute 04/2013) S/P complete hysterectomy (Acute) SURGICAL PREPARATION AND REVISION BREAST RECONSTRUCTION (Acute) SURGICAL PREPARATION LEFT BREAST WITH MASTECTOMY (Acute) SURGICAL PREPARATION RIGHT BREAST (Acute) Family History Father , FROM MRSA AT AGE 50 Hypertension Hyperlipidemia Acute depression Diabetes Mother Asthma Grandmother Diabetes Heart disease Grandmother Hypertension Diabetes Grandfather Parkinson disease Brother Asthma Aunt Thyroid cancer Uncle Thyroid cancer Social History household members: significant other, children number of children: 2 current occupational status: unemployed Smoking Status: Current every day smoker second hand exposure: No alcohol intake: current details: BEER seatbelt use: always do you feel safe at home: Yes additional social history: SUN EXPOSURE: OCCASIONALLY HPI postop surgery 12/16/17: Details: Postop visit from her recent surgery on 12/16/17 where she underwent 1st stage delayed right breast reconstruction with placement of submuscular saline tissue bond runner (800 ml) and placement DermACELL decellularized dermis graft (160 cm2). She was discharged from the hospital on 12/18/17. Comes in today with no complaints. Incision is dry and intact. Less seroma present. She has been wearing her binder consistently lately. The remaining seroma should absorb with the tissue expansion process. If not it can be drained at the time of the implant exchange unless it gets infected in the mean time. She is ready to begin the saline tissue expansion process. PROCEDURE Using a magnetic finder, the port was localized and the skin was prepped with alcohol and infiltrated with xylocaine with epinephrine. I then prepped the right breast with Betadine. Using sterile draping and sterile gloves, I injected sterile saline into the right breast tissue bond runner without difficulty. I injected 250 ml in an 800 ml bond runner. She tolerated the procedure well. Will apply antibiotic ointment to the puncture site daily for 3 days. Operative culture was negative. Because of her previous history of MRSA, she will continue the Vancomycin. Pathology showed no malignancy present. Renewed her Dilaudid for pain (40 tabs). Renewed her Valium for spasm (30 tabs). Continue her chest wall binder for compression. Followup 2 weeks. Will continue the saline tissue expansion at this time. Assessment AND Plan Problems 1. Abscess of right breast N61.1 2. 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 History of MRSA infection Z86.14 5. 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 History of MRSA infection Z86.14 Former smoker Z87.891 02/22/18 0158 <Electronically signed by Sean Stevenson MD> Date Sean Stevenson MD Cosigner Signature: Date (if applicable) CC: PLASTIC SURGERY Observed: 01/26/2018 Status: F Source: [place] VISIT REPORT 11:26 AM [facility] REPOSITORY [facility] [address] [facility] [address] [place] [address] OFFICE VISIT Date of Service: 01/06/18 MR#: [id number] Acct: [id number] Name: ROBLES CARRASQUILLO Rep #: [id number] : 1970 Provider: Sean Stevenson MD Age/Sex: 47/F Location: [facility] Status: Signed Intake Vital Signs01/06/18 Height 5 ft 6 in 01/06/18 Weight: 287 lb Intake Visit Reasons: postop surgery 12/16/17 Alining Inspector Required: No Accompanied by: Daughter Is patient in pain?: Yes (BREAST PAIN - PRESSURE) Pain scale (1-10): 3 Allergies codeine Allergy (Verified 01/16/18 10:21) Rash Penicillins Allergy (Verified 01/16/18 10:21) Rash NSAIDS (Non-Steroidal Anti-Inflamma Adverse Reaction (Verified 01/16/18 10:21) Other Medications Levothyroxine [Synthroid] 175 mcg PO DAILY 03/19/14 [History Confirmed 01/10/18] Calcium Carbonate/Vitamin D3 [Calcium 600-Vit D3 400 Caplet] 1 ea PO BID 08/15/15 [History Confirmed 01/10/18] Cholecalciferol (VIT D3) [Vitamin D3] 2,000 unit PO DAILY 08/15/15 [History Confirmed 01/10/18] Multivitamins,Ther W-Minerals [Multivitamin With Minerals] 1 tab PO DAILY 08/15/15 [History Confirmed 01/10/18] Nortriptyline HCl [Pamelor] 50 mg PO QHS 04/03/16 [History Confirmed 01/10/18] buPROPion XL [Wellbutrin Xl] 450 mg PO DAILY 04/18/17 [History Confirmed 01/10/18] Iron Polysaccharide Complex [Ferrex 150] 150 mg PO BID 05/01/17 [History Confirmed 01/10/18] Acetaminophen [Tylenol] 1,000 mg PO Q8H PRN #1 tab 05/06/17 [Rx Confirmed 01/10/18] Ascorbic Acid [Vitamin C] 1,000 mg PO BID 12/03/17 [History Confirmed 01/10/18] Fluoxetine HCl [Prozac] 40 mg PO DAILY 12/03/17 [History Confirmed 01/10/18] Magnesium 250 mg PO QHS 12/03/17 [History Confirmed 01/10/18] Zolpidem Tartrate [Ambien] 10 mg PO QHS 12/03/17 [History Confirmed 01/10/18] Diazepam [Valium] 5 mg PO 4X/DAY PRN PRN #30 tab 12/18/17 [Rx Confirmed 01/10/18] Docusate Sodium [Colace] 100 mg PO BID #60 cap 12/18/17 [Rx Confirmed 01/10/18] HYDROmorphone tablet [Dilaudid] 2 - 4 mg PO 4X/DAY PRN PRN 7 Days #60 tab 12/18/17 [Rx Confirmed 01/10/18] Vancomycin 1,250 mg IV Q8H 39 Days #117 vial 12/18/17 [Rx Confirmed 01/10/18] proMETHazine tablet [Phenergan tablet] 25 mg PO 4X/DAY PRN PRN #30 tab 12/18/17 [Rx Confirmed 01/10/18] diazepam 5 mg tablet 5 mg PO 4X/DAY PRN #30 tab 01/16/18 [Rx Confirmed 01/16/18] PFSH Medical History Abscess (Acute) Anemia (Acute) Anxiety (Acute) BREAST LUMP/CYST (Acute) COMPROMISED BILATERAL BREAST REDUCTION NIPPLE GRAFTS (Acute) Depression (emotion) (Acute) Disproportion of reconstructed breast (Acute) Graves disease (Acute) Hypertriglyceridemia (Acute) Hypothyroidism (Acute 2001) MRSA (methicillin resistant staph aureus) culture positive (Acute) Metabolic syndrome (Acute) NONHEALING SURGICAL WOUND RIGHT BREAST (Acute) NONHEALING ULCER LEFT BREAST AT VERTICAL INCISION (Acute) Obesity (Acute) Ovarian cyst (Acute) RECURRENT INFECTED ULCER LEFT BREAST (Acute) RECURRENT NONHEALING INFECTED MRSA ULCER RIGHT BREAST (Acute) Seasonal allergies (Acute) Hypertension (Chronic) Surgical History BILATERAL BREAST REDUCTION MAMMAPLASTY (Acute) COMPLETE THYROIDECTOMY DUE TO GRAVES' DISEASE (Acute 11/2001) Delivered by section (Acute) EXCISIONAL DEBRIDEMENT RECURRENT NONHEALING INFECTED MRSA (Acute) EXCISIONL DEBRIDEMENT NONHEALING RECURRENT INFECTED ULCER (Acute) Gastric bypass status for obesity (Acute) HERNIA REPAIR WITH MESH (Acute 2014) History of bilateral ligation of fallopian tubes (Acute 2000) History of incisional hernia repair (Acute 07/03/10) History of tonsillectomy (Acute 12/2003) INCISION AND DRAINAGE BREAST ABSCESS (Acute) MASTOTOMY RIGHT BREAST (Acute) PANICULECTOMY (Acute 04/2013) S/P complete hysterectomy (Acute) SURGICAL PREPARATION AND REVISION BREAST RECONSTRUCTION (Acute) SURGICAL PREPARATION LEFT BREAST WITH MASTECTOMY (Acute) SURGICAL PREPARATION RIGHT BREAST (Acute) Family History Father , FROM MRSA AT AGE 50 Hypertension Hyperlipidemia Acute depression Diabetes Mother Asthma Grandmother Diabetes Heart disease Grandmother Hypertension Diabetes Grandfather Parkinson disease Brother Asthma Aunt Thyroid cancer Uncle Thyroid cancer Social History household members: significant other, children number of children: 2 current occupational status: unemployed Smoking Status: Current every day smoker second hand exposure: No alcohol intake: current details: BEER seatbelt use: always do you feel safe at home: Yes additional social history: SUN EXPOSURE: OCCASIONALLY HPI postop surgery 12/16/17: Details: Postop visit from her recent surgery on 12/16/17 where she underwent 1st stage delayed right breast reconstruction with placement of submuscular saline tissue bond runner (800 ml) and placement DermACELL decellularized dermis graft (160 cm2). She was discharged from the hospital on 12/18/17. Comes in today with incisional pain. Incision is dry and intact. Less seroma present. She has been wearing her binder consistently lately. The remaining seroma should absorb with the tissue expansion process. If not it can be drained at the time of the implant exchange unless it gets infected in the mean time. Drainage has been less than 40 ml/day. Removed the remaining drain today without difficulty. Operative culture was negative. Because of her previous history of MRSA, she will continue the Vancomycin. Pathology showed no malignancy present. Renewed her Dilaudid for pain (40 tabs), to be dispensed 01/09/18. Continue her chest wall binder for compression. Followup one week. Will then start the saline tissue expansion at that time. 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 Incisional hernia repair 07/03/10 panniculectomy 04/2013 hernia repair with mesh - 2014 incision and drainage breast abscess - 04/12 and 08/13 surgical preparation left breast with mastotomy, and incision and drainage and excisional debridement recurrent left breast infection ulcer with 3 cm partial secondary wound closure - 11/21/15 excisional debridement nonhealing recurrent infected ulcer left breast at medial periareolar area with complex secondary wound closure - 12/28/15 excisional debridement nonhealing recurrent infected ulcer left breast at medial periareolar area with complex secondary wound closure - 04/04/16 mastotomy right breast with incision and drainage abscess and excision with partial mastectomy - 06/07/16 Bilateral breast reduction mammaplasty with bilateral free nipple graft reconstruction - 10/01/16 Surgical preparation revision right breast reconstruction with excisional debridement nonhealing surgical wounds lateral aspect and medial aspect with secondary wound closure and excisional debridement compromised graft ulceration nipple area and nonhealing surgical wound Tzone area with FTSG from right lateral breast (25 cm2) - 11/21/16 Surgical preparation right breast with incison and drainage and excisional debridement nonhealing infected nipple graft ulcer (63 cm2) - 01/10/17 Excisional debridement recurrent nonhealing infected MRSA ulcer right breast and compromised skin graft right nipple with completion mastectomy - 04/18/17 Incision and drainage right mastectomy MRSA wound infection - 05/02/17 1st stage delayed right breast reconstruction with placement of submuscular saline tissue bond runner (800 ml) and placement DermACELL decellularized dermis graft (160 cm2) - 12/16/17 FAMILY HISTORY: Father (biol.) - Has Family History of Hypertension PGM - Has Family History of Diabetes PGM - Has Family History of Heart Disease Mother (biol.) - Has Family History of Asthma Brother (full) - Has Family History of Asthma Father (biol.) - Has Family History of Depression negative for breast cancer. Heart disease. Thyroid cancer. Parkinson's disease. SOCIAL HISTORY: Patient was smoking up to 09/30-1ppd x 20 years. She has recently quit. Alcohol Use - no Drug Use - no Regular Exercise - no single, but live with partner for 12 years, have two children together, one son, one girl age 11 and 9, son has Asberger patient does not use aspirin. patient does not use ibuprofen. Assessment AND Plan Problems 1. Abscess of right breast N61.1 2. 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 History of MRSA infection Z86.14 5. 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 History of MRSA infection Z86.14 Former smoker Z87.891 01/26/18 1126 <Electronically signed by Sean Stevenson MD> Date Sean Stevenson MD Cosigner Signature: Date (if applicable) CC: ERYTHROCYTE SED RATE Collected: 01/26/2018 Status: F Source: [place] 8:30 AM [facility] REPOSITORY TYPE CODE TESTS RESULT OUT OF RANGE REFERENCE UNITS LAB L102.0000 0-20 mm/hr High SED RATE 27 Performed By: #### L101.9900, L100.0100, L500.4050, L501.6710 #### [facility] [address] [place], [address] CBC W/DIFF, AUTOMATED Collected: 01/26/2018 Status: F Source: [place] 8:30 AM [facility] REPOSITORY TYPE CODE TESTS RESULT OUT OF RANGE REFERENCE UNITS LAB L100.1000 4.4-11.0 K/mm3 Normal WBC 7.9 LAB L100.1200 4.2-5.4 M/mm3 Low RBC 3.98 LAB L100.1300 12.0-15.0 g/dl Normal HGB 12.0 LAB L100.1400 37-47 % Normal HCT 38.9 LAB L100.1500 81-99 fL Normal MCV 97.7 LAB L100.1600 27.0-32.0 pg Normal MCH 30.2 LAB L100.1700 32-36 g/gl Low MCHC 30.8 LAB L100.1810 11.6-14.6 % Normal RDW CV 14.1 LAB L100.1820 35.1-43.9 fl High RDW SD 49.2 LAB L100.1900 150-450 K/mm3 Normal PLT 329 LAB L100.2000 6.2-12.0 fl Normal MPV 9.6 LAB L100.2100 47-70 % Normal NEUT% 68.7 LAB L100.2200 19-41 % Normal LY% 19.3 LAB L100.2300 0-10 % Normal MONO% 7.1 LAB L100.2400 0-5 % Normal EO% 4.3 LAB L100.2500 0-1 % Normal BASO% 0.3 LAB L100.2550 0.0-0.9 % Normal IM GRAN % 0.300 Result Comment: IG% - Immature Granulocytes (promyelocytes, myelocytes and metamyelocytes) > 1% indicates that a LEFT SHIFT is Present. LAB L100.2620 2.0-7.7 X10 3/uL Normal Absolute Neut 5.5 LAB L100.2720 0.83-4.51 X10 3/ul Normal Absolute Lymph 1.53 Performed By: #### L101.9900, L100.0100, L500.4050, L501.6710 #### [facility] [address] [place], [place], [address] COMPREHENSIVE METABOLIC Collected: 01/26/2018 Status: F Source: [facility] 8:30 AM [facility] REPOSITORY TYPE CODE TESTS RESULT OUT OF RANGE REFERENCE UNITS LAB L501.0100 74-106 mg/dL Normal GLU 101 Result Comment: Fasting Glucose result from 100 to 125 mg/dL suggests IMPAIRED HOMEOSTASIS per A.D.A. criteria. Please note revised GLUCOSE reference range effective 2017. LAB L501.1000 7-18 mg/dL Normal BUN 11 LAB L501.1100 0.55-1.02 mg/dL Normal CREAT,SERUM 0.60 Result Comment: The validity of the calculated GFR AND GFRAA in patients over 70 years has not been determined. Clinical correlation is essential. LAB L501.1110 >60 mL/min Normal EST GFR 115 Result Comment: Non- GFR Calc LAB L501.1115 >60 mL/min Normal EST GFR - AA 139 Result Comment: GFR Calc LAB L501.1300 10-20 RATIO Normal BUN/CRE 18.4 LAB L501.1500 6.4-8.2 g/dL T Normal PROT 6.8 LAB L501.1800 3.2-5.0 g/dL Normal ALB 3.2 LAB L501.1950 2.2-4.2 g/dL Normal GLOB 3.6 LAB L501.2000 0.9-2.4 RATIO Normal A/G 0.9 LAB L501.2200 8.5-10.1 mg/dL Low CA 8.4 LAB L501.4100 15-37 U/L Normal AST 22 LAB L501.4305 45-117 U/L Normal ALK P 79 LAB L501.4405 13-56 U/L Normal ALT 26 LAB L501.4600 0.20-1.00 mg/dL Low T BILI < 0.10 LAB L501.5300 136-145 mmol/L NA Normal 141 LAB L501.5600 3.5-5.1 mmol/L K Normal 4.1 LAB L501.5900 98-107 mmol/L CL Normal 106 LAB L501.6100 21.0-32.0 mmol/L Normal CO2 29.0 LAB L501.6200 5-15 Normal GAP 6 Performed By: #### L101.9900, L100.0100, L500.4050, L501.6710 #### [facility] [address] [place], [address] CRP Collected: 01/26/2018 Status: F Source: [facility] 8:30 AM [facility] REPOSITORY TYPE CODE TESTS RESULT OUT OF RANGE REFERENCE UNITS LAB L501.6710 0.0-3.0 mg/L High 6.10 C-REACTIVE PROT Result Comment: C-Reactive Protein (CRP) provides useful information for the diagnosis, therapy and monitoring of inflammatory processes and associated diseases. For the evaluation of Relative Risk for Cardiovascular Disease, a High Sensitivity CRP (HSCRP) should be ordered. Performed By: #### L101.9900, L100.0100, L500.4050, L501.6710 #### [facility] [address] [place], [address] VANCOMYCIN, TROUGH Collected: 01/26/2018 Status: F Source: [facility] 8:30 AM [facility] REPOSITORY TYPE CODE TESTS RESULT OUT OF RANGE REFERENCE UNITS LAB L501.8820 5.0-15.0 ug/mL Normal VANCO, TROUGH 12.0 Result Comment: VANCOMYCIN STANDARED DRUG THERAPY TROUGH LEVEL: 5.0 - 15.0 mg/L VANCOMYCIN HIGH INTENSITY THERAPY TROUGH LEVEL: 15.0 - 20.0 mg/L High Intensity therapy recommended for serious life threatening infections include: - Meningitis -Endocarditis -Pneumonia (Ventilator/Healtcare Associated) -Sepsis PLEASE CONTACT PHARMACY SERVICES (#[id number]) FOR INTERPRETATION OF RESULTS. Performed By: #### L501.8820 #### [facility] [address] [place], [address] ERYTHROCYTE SED RATE Collected: 01/19/2018 Status: F Source: [facility] 8:36 AM [facility] REPOSITORY TYPE CODE TESTS RESULT OUT OF RANGE REFERENCE UNITS LAB L102.0000 0-20 mm/hr High SED RATE 52 Performed By: #### L101.9900, L100.0100 #### [facility] [address] [place], [address] CBC W/DIFF, AUTOMATED Collected: 01/19/2018 Status: F Source: [facility] 8:36 AM [facility] REPOSITORY TYPE CODE TESTS RESULT OUT OF RANGE REFERENCE UNITS LAB L100.1000 4.4-11.0 K/mm3 Normal WBC 7.0 LAB L100.1200 4.2-5.4 M/mm3 Low RBC 3.95 LAB L100.1300 12.0-15.0 g/dl Low HGB 11.9 LAB L100.1400 37-47 % Normal HCT 38.2 LAB L100.1500 81-99 fL Normal MCV 96.7 LAB L100.1600 27.0-32.0 pg Normal MCH 30.1 LAB L100.1700 32-36 g/gl Low MCHC 31.2 LAB L100.1810 11.6-14.6 % Normal RDW CV 14.3 LAB L100.1820 35.1-43.9 fl High RDW SD 50.9 LAB L100.1900 150-450 K/mm3 Normal PLT 251 LAB L100.2000 6.2-12.0 fl Normal MPV 9.5 LAB L100.2100 47-70 % Normal NEUT% 63.7 LAB L100.2200 19-41 % Normal LY% 22.5 LAB L100.2300 0-10 % Normal MONO% 7.1 LAB L100.2400 0-5 % High EO% 6.3 LAB L100.2500 0-1 % Normal BASO% 0.3 LAB L100.2550 0.0-0.9 % Normal IM GRAN % 0.100 Result Comment: IG% - Immature Granulocytes (promyelocytes, myelocytes and metamyelocytes) > 1% indicates that a LEFT SHIFT is Present. LAB L100.2620 2.0-7.7 X10 3/uL Normal Absolute Neut 4.5 LAB L100.2720 0.83-4.51 X10 3/ul Normal Absolute Lymph 1.58 Performed By: #### L101.9900, L100.0100 #### [facility] [address] [facility] [place], [address] VANCOMYCIN, TROUGH Collected: 01/19/2018 Status: F Source: [facility] 8:36 AM [facility] REPOSITORY TYPE CODE TESTS RESULT OUT OF RANGE REFERENCE UNITS LAB L501.8820 5.0-15.0 ug/mL Normal VANCO, TROUGH 13.3 Result Comment: VANCOMYCIN STANDARED DRUG THERAPY TROUGH LEVEL: 5.0 - 15.0 mg/L VANCOMYCIN HIGH INTENSITY THERAPY TROUGH LEVEL: 15.0 - 20.0 mg/L High Intensity therapy recommended for serious life threatening infections include: - Meningitis -Endocarditis -Pneumonia (Ventilator/Healtcare Associated) -Sepsis PLEASE CONTACT PHARMACY SERVICES (#[id number]) FOR INTERPRETATION OF RESULTS. Performed By: #### L501.8820 #### [facility] [address] [place], [place], [address] COMPREHENSIVE METABOLIC Collected: 01/19/2018 Status: F Source: [facility] 8:36 AM [facility] REPOSITORY TYPE CODE TESTS RESULT OUT OF RANGE REFERENCE UNITS LAB L501.0100 74-106 mg/dL Normal GLU 91 Result Comment: Please note revised GLUCOSE reference range effective 2017. LAB L501.1000 7-18 mg/dL Normal BUN 9 LAB L501.1100 0.55-1.02 mg/dL Low CREAT,SERUM 0.46 Result Comment: The validity of the calculated GFR AND GFRAA in patients over 70 years has not been determined. Clinical correlation is essential. LAB L501.1110 >60 mL/min Normal EST GFR 154 Result Comment: Non- GFR Calc LAB L501.1115 >60 mL/min Normal EST GFR - AA 186 Result Comment: GFR Calc LAB L501.1300 10-20 RATIO Normal BUN/CRE 19.4 LAB L501.1500 6.4-8.2 g/dL Low T PROT 6.3 LAB L501.1800 3.2-5.0 g/dL Normal ALB 3.2 LAB L501.1950 2.2-4.2 g/dL Normal GLOB 3.1 LAB L501.2000 0.9-2.4 RATIO Normal A/G 1.0 LAB L501.2200 8.5-10.1 mg/dL Low CA 8.2 LAB L501.4100 15-37 U/L Normal AST 33 Result Comment: Moderate Hemolysis, Result may be falsely increased. LAB L501.4305 45-117 U/L Normal ALK P 78 LAB L501.4405 13-56 U/L Normal ALT 23 LAB L501.4600 0.20-1.00 mg/dL Normal T BILI 0.20 LAB L501.5300 136-145 mmol/L Normal NA 140 LAB L501.5600 3.5-5.1 mmol/L Normal K 4.6 Result Comment: Moderate Hemolysis, Result may be falsely increased. LAB L501.5900 98-107 mmol/L Normal CL 106 LAB L501.6100 21.0-32.0 mmol/L Normal CO2 26.0 LAB L501.6200 5-15 Normal 8 GAP Performed By: #### L500.4050, L501.6710 #### [facility] [address] [place], [place], [id number] CRP Collected: 01/19/2018 Status: F Source: [facility] 8:36 AM [facility] REPOSITORY TYPE CODE TESTS RESULT OUT OF RANGE REFERENCE UNITS LAB L501.6710 0.0-3.0 mg/L High 6.55 C-REACTIVE PROT Result Comment: C-Reactive Protein (CRP) provides useful information for the diagnosis, therapy and monitoring of inflammatory processes and associated diseases. For the evaluation of Relative Risk for Cardiovascular Disease, a High Sensitivity CRP (HSCRP) should be ordered. Performed By: #### L500.4050, L501.6710 #### [facility] [place], [address] CBC W/DIFF, AUTOMATED Collected: 01/12/2018 Status: F Source: [facility] 8:45 AM [facility] REPOSITORY TYPE CODE TESTS RESULT OUT OF RANGE REFERENCE UNITS LAB L100.1000 4.4-11.0 K/mm3 Normal WBC 7.2 LAB L100.1200 4.2-5.4 M/mm3 Low RBC 3.87 LAB L100.1300 12.0-15.0 g/dl Normal HGB 12.1 LAB L100.1400 37-47 % Normal HCT 37.8 LAB L100.1500 81-99 fL Normal MCV 97.7 LAB L100.1600 27.0-32.0 pg Normal MCH 31.3 LAB L100.1700 32-36 g/gl Normal MCHC 32.0 LAB L100.1810 11.6-14.6 % Normal RDW CV 14.6 LAB L100.1820 35.1-43.9 fl High RDW SD 50.7 LAB L100.1900 150-450 K/mm3 Normal PLT 243 LAB L100.2000 6.2-12.0 fl Normal MPV 9.7 LAB L100.2100 47-70 % Normal NEUT% 67.9 LAB L100.2200 19-41 % Low LY% 18.6 LAB L100.2300 0-10 % Normal MONO% 6.1 LAB L100.2400 0-5 % High EO% 7.1 LAB L100.2500 0-1 % Normal BASO% 0.3 LAB L100.2550 0.0-0.9 % Normal IM GRAN % 0.000 Result Comment: IG% - Immature Granulocytes (promyelocytes, myelocytes and metamyelocytes) > 1% indicates that a LEFT SHIFT is Present. LAB L100.2620 2.0-7.7 X10 3/uL Normal Absolute Neut 4.9 LAB L100.2720 0.83-4.51 X10 3/ul Normal Absolute Lymph 1.34 Performed By: #### L100.0100, L101.9900 #### [facility] [address] [place], [address] ERYTHROCYTE SED RATE Collected: 01/12/2018 Status: F Source: [facility] 8:45 AM [facility] REPOSITORY TYPE CODE TESTS RESULT OUT OF RANGE REFERENCE UNITS LAB L102.0000 0-20 mm/hr High SED RATE 45 Performed By: #### L100.0100, L101.9900 #### [facility] [address] [place], [address] VANCOMYCIN, TROUGH Collected: 01/12/2018 Status: F Source: [facility] 8:45 AM [facility] REPOSITORY TYPE CODE TESTS RESULT OUT OF REFERENCE UNITS RANGE LAB L501.8820 5.0-15.0 ug/mL High VANCO, TROUGH 15.3 Result Comment: VANCOMYCIN STANDARED DRUG THERAPY TROUGH LEVEL: 5.0 - 15.0 mg/L VANCOMYCIN HIGH INTENSITY THERAPY TROUGH LEVEL: 15.0 - 20.0 mg/L High Intensity therapy recommended for serious life threatening infections include: - Meningitis -Endocarditis -Pneumonia (Ventilator/Healtcare Associated) -Sepsis PLEASE CONTACT PHARMACY SERVICES (#[id number]) FOR INTERPRETATION OF RESULTS. Performed By: #### L501.8820 #### [facility] [address] [place], [address] CRP, HIGH SENSITIVITY Collected: 01/12/2018 Status: F Source: [facility] 8:45 AM [facility] REPOSITORY TYPE CODE TESTS RESULT OUT OF RANGE REFERENCE UNITS LAB L501.6750 mg/L High CRP HIGH 6.89 SENS Result Comment: Low Relative Risk of CVD <1.0 mg/L Average Relative Risk of CVD 1.0 - 3.0 mg/L High Relative Risk of CVD >3.0 mg/L Performed By: #### L501.6750 #### [facility] [address] [place], [address] DISCHARGE INSTRUCTION Observed: 01/10/2018 Status: F Source: [facility] 11:34 AM [facility] Medical Records Department [address] [place] [address] Discharge Instruction 01/10/18 1133 MR#: [id number] Acct: [id number] Name: DARWIN CARRASQUILLON Mary Ellen Rep #: [id number] : 1970 47 From: Brian Baxter MD PCP: Eduardo Rubio DO Status: REG ER ED Disposition - Plan for ED Patient: Chief Complaint: Wound Check Instructions: ED PICC Line Care Referrals: Eduardo Perkins DO [Primary Care Provider] - What to do if you have Problems For any increased pain, shortness of breath, bleeding, nausea or vomiting, chest pain, or any unexpected problems, contact your Primary Care Provider. Call [facility] ([phone]) or report to the closest Emergency Room. Call 911 if necessary. 01/10/18 1134 <Electronically signed by Brian Baxter MD> Date Brian Baxter MD Cosigner Signature (If Indicated): Date CC: Eduardo Rubio DO EMERGENCY DEPARTMENT Observed: 01/10/2018 Status: F Source: [facility] SUMMARY 11:33 AM [facility] Medical Records Department [address] [place] [address] Emergency Department Summary 01/10/18 1131 MR#: [id number] Acct: [id number] Name: ROBLES CARRASQUILLO Rep #: [id number] : 1970 47 From: Brian Baxter MD PCP: Eduardo Rubio DO Status: REG ER - ER Visit Summary Date of Service: 01/10/18 Chief Complaint: PICC line check History of Present Illness: The patient is a 47 F with a history of MRSA right breast infection. She has had multiple surgeries. She is currently receiving prophylactic vancomycin through the left PICC line. She states that last night she was able to flush it but was unable to infuse antibiotics and unable to get blood return. She otherwise has no complaints at this time. Physical Examination: Afebrile vitals are stable Moist mucous membranes Heart regular Lungs clear The PICC site and dressing are clean dry and intact Alert Test Results: Not indicated Emergency Department Course and Treatment: Cathflo was used with the PICC line with resolution of obstruction. Patient discharged. Treatment Plan: [] Disposition: Discharge Impression: PICC line obstruction, resolved This note was generated with [employer]oopen dictation software. It may contain incorrect words, spelling, and punctuation that were not noted in review of the chart prior to signing ED Disposition - Plan for ED Patient: Chief Complaint: Wound Check Referrals: Eduardo Perkins DO [Primary Care Provider] - What to do if you have Problems For any increased pain, shortness of breath, bleeding, nausea or vomiting, chest pain, or any unexpected problems, contact your Primary Care Provider. Call [facility] ([phone]) or report to the closest Emergency Room. Call 911 if necessary. 01/10/18 1133 <Electronically signed by Brian Baxter MD> Date Brian Baxter MD Cosigner Signature (If Indicated): Date CC: Eduardo Rubio DO PLASTIC SURGERY Observed: 01/06/2018 Status: F Source: [facility] VISIT REPORT 11:34 AM [facility] REPOSITORY [facility] [address] [address] OFFICE VISIT Date of Service: 01/02/18 MR#: [id number] Acct: [id number] Name: ROBLES CARRASQUILLO Rep #: [id number] : 1970 Provider: Sean Stevenson MD Age/Sex: 47/F Location: [facility] Status: Signed Intake Vital Signs01/02/18 Height 5 ft 6 in 01/02/18 Weight: 280 lb 6 oz Intake Visit Reasons: postop surgery 12/16/17 Alining Inspector Required: No Accompanied by: Daughter Is patient in pain?: Yes (right breast aching pain) Pain scale (1-10): 4 Allergies codeine Allergy (Verified 01/02/18 15:26) Rash Penicillins Allergy (Verified 01/02/18 15:26) Rash NSAIDS (Non-Steroidal Anti-Inflamma Adverse Reaction (Verified 01/02/18 15:26) Other Medications Levothyroxine [Synthroid] 175 mcg PO DAILY 03/19/14 [History Confirmed 01/02/18] Calcium Carbonate/Vitamin D3 [Calcium 600-Vit D3 400 Caplet] 1 ea PO BID 08/15/15 [History Confirmed 01/02/18] Cholecalciferol (VIT D3) [Vitamin D3] 2,000 unit PO DAILY 08/15/15 [History Confirmed 01/02/18] Multivitamins,Ther W-Minerals [Multivitamin With Minerals] 1 tab PO DAILY 08/15/15 [History Confirmed 01/02/18] Nortriptyline HCl [Pamelor] 50 mg PO QHS 04/03/16 [History Confirmed 01/02/18] buPROPion XL [Wellbutrin Xl] 450 mg PO DAILY 04/18/17 [History Confirmed 01/02/18] Iron Polysaccharide Complex [Ferrex 150] 150 mg PO BID 05/01/17 [History Confirmed 01/02/18] Acetaminophen [Tylenol] 1,000 mg PO Q8H PRN #1 tab 05/06/17 [Rx Confirmed 01/02/18] Ascorbic Acid [Vitamin C] 1,000 mg PO BID 12/03/17 [History Confirmed 01/02/18] Fluoxetine HCl [Prozac] 40 mg PO DAILY 12/03/17 [History Confirmed 01/02/18] Magnesium 250 mg PO QHS 12/03/17 [History Confirmed 01/02/18] Zolpidem Tartrate [Ambien] 10 mg PO QHS 12/03/17 [History Confirmed 01/02/18] Diazepam [Valium] 5 mg PO 4X/DAY PRN PRN #30 tab 12/18/17 [Rx Confirmed 01/02/18] Docusate Sodium [Colace] 100 mg PO BID #60 cap 12/18/17 [Rx Confirmed 01/02/18] HYDROmorphone tablet [Dilaudid] 2 - 4 mg PO 4X/DAY PRN PRN 7 Days #60 tab 12/18/17 [Rx Confirmed 01/02/18] Vancomycin 1,250 mg IV Q8H 39 Days #117 vial 12/18/17 [Rx Confirmed 01/02/18] proMETHazine tablet [Phenergan tablet] 25 mg PO 4X/DAY PRN PRN #30 tab 12/18/17 [Rx Confirmed 01/02/18] hydromorphone 2 mg tablet See Label Instructions PO 4X/DAY PRN #50 tab 01/06/18 [Rx Confirmed 01/06/18] PFSH Medical History Abscess (Acute) Anemia (Acute) Anxiety (Acute) BREAST LUMP/CYST (Acute) COMPROMISED BILATERAL BREAST REDUCTION NIPPLE GRAFTS (Acute) Depression (emotion) (Acute) Disproportion of reconstructed breast (Acute) Graves disease (Acute) Hypertriglyceridemia (Acute) Hypothyroidism (Acute 2001) MRSA (methicillin resistant staph aureus) culture positive (Acute) Metabolic syndrome (Acute) NONHEALING SURGICAL WOUND RIGHT BREAST (Acute) NONHEALING ULCER LEFT BREAST AT VERTICAL INCISION (Acute) Obesity (Acute) Ovarian cyst (Acute) RECURRENT INFECTED ULCER LEFT BREAST (Acute) RECURRENT NONHEALING INFECTED MRSA ULCER RIGHT BREAST (Acute) Seasonal allergies (Acute) Hypertension (Chronic) Surgical History BILATERAL BREAST REDUCTION MAMMAPLASTY (Acute) COMPLETE THYROIDECTOMY DUE TO GRAVES' DISEASE (Acute 11/2001) Delivered by section (Acute) EXCISIONAL DEBRIDEMENT RECURRENT NONHEALING INFECTED MRSA (Acute) EXCISIONL DEBRIDEMENT NONHEALING RECURRENT INFECTED ULCER (Acute) Gastric bypass status for obesity (Acute) HERNIA REPAIR WITH MESH (Acute 2014) History of bilateral ligation of fallopian tubes (Acute 2000) History of incisional hernia repair (Acute 07/03/10) History of tonsillectomy (Acute 12/2003) INCISION AND DRAINAGE BREAST ABSCESS (Acute) MASTOTOMY RIGHT BREAST (Acute) PANICULECTOMY (Acute 04/2013) S/P complete hysterectomy (Acute) SURGICAL PREPARATION AND REVISION BREAST RECONSTRUCTION (Acute) SURGICAL PREPARATION LEFT BREAST WITH MASTECTOMY (Acute) SURGICAL PREPARATION RIGHT BREAST (Acute) Family History Father , FROM MRSA AT AGE 50 Hypertension Hyperlipidemia Acute depression Diabetes Mother Asthma Grandmother Diabetes Heart disease Grandmother Hypertension Diabetes Grandfather Parkinson disease Brother Asthma Aunt Thyroid cancer Uncle Thyroid cancer Social History household members: significant other, children number of children: 2 current occupational status: unemployed Smoking Status: Former smoker second hand exposure: No alcohol intake: current details: BEER seatbelt use: always do you feel safe at home: Yes additional social history: SUN EXPOSURE: OCCASIONALLY HPI postop surgery 12/16/17: Details: Postop visit from her recent surgery on 12/16/17 where she underwent 1st stage delayed right breast reconstruction with placement of submuscular saline tissue bond runner (800 ml) and placement DermACELL decellularized dermis graft (160 cm2). She was discharged from the hospital on 12/18/17. Comes in today with incisional pain. Incision is dry and intact. Less seroma present. She has been wearing her binder consistently lately. The remaining seroma should absorb with the tissue expansion process. If not it can be drained at the time of the implant exchange unless it gets infected in the mean time. Drainage has been 80 ml/day. Removed one drain today without difficulty. Operative culture was negative. Because of her previous history of MRSA, she will continue the Vancomycin. Pathology showed no malignancy present. Renewed her Dilaudid for pain (50 tabs). Continue her chest wall binder for compression. Followup one week. Will remove the other drain at that time. Will then start the saline tissue expansion the following week. 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 Incisional hernia repair 07/03/10 panniculectomy 04/2013 hernia repair with mesh - 2014 incision and drainage breast abscess - 04/12 and 08/13 surgical preparation left breast with mastotomy, and incision and drainage and excisional debridement recurrent left breast infection ulcer with 3 cm partial secondary wound closure - 11/21/15 excisional debridement nonhealing recurrent infected ulcer left breast at medial periareolar area with complex secondary wound closure - 12/28/15 excisional debridement nonhealing recurrent infected ulcer left breast at medial periareolar area with complex secondary wound closure - 04/04/16 mastotomy right breast with incision and drainage abscess and excision with partial mastectomy - 06/07/16 Bilateral breast reduction mammaplasty with bilateral free nipple graft reconstruction - 10/01/16 Surgical preparation revision right breast reconstruction with excisional debridement nonhealing surgical wounds lateral aspect and medial aspect with secondary wound closure and excisional debridement compromised graft ulceration nipple area and nonhealing surgical wound Tzone area with FTSG from right lateral breast (25 cm2) - 11/21/16 Surgical preparation right breast with incison and drainage and excisional debridement nonhealing infected nipple graft ulcer (63 cm2) - 01/10/17 Excisional debridement recurrent nonhealing infected MRSA ulcer right breast and compromised skin graft right nipple with completion mastectomy - 04/18/17 Incision and drainage right mastectomy MRSA wound infection - 05/02/17 1st stage delayed right breast reconstruction with placement of submuscular saline tissue bond runner (800 ml) and placement DermACELL decellularized dermis graft (160 cm2) - 12/16/17 FAMILY HISTORY: Father (biol.) - Has Family History of Hypertension PGM - Has Family History of Diabetes PGM - Has Family History of Heart Disease Mother (biol.) - Has Family History of Asthma Brother (full) - Has Family History of Asthma Father (biol.) - Has Family History of Depression negative for breast cancer. Heart disease. Thyroid cancer. Parkinson's disease. SOCIAL HISTORY: Patient was smoking up to 12-1ppd x 20 years. She has recently quit. Alcohol Use - no Drug Use - no Regular Exercise - no single, but live with partner for 12 years, have two children together, one son, one girl age 11 and 9, son has Asberger patient does not use aspirin. patient does not use ibuprofen. Assessment AND Plan Problems 1. Abscess of right breast N61.1 2. 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 History of MRSA infection Z86.14 5. Former smoker Z87.891 Medications New: Coding Level of Care Code Global Post Op Diagnoses Abscess of right breast N61.1 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 Disproportion of reconstructed breast N65.1 History of MRSA infection Z86.14 Former smoker Z87.891 01/06/18 1134 <Electronically signed by Sean Stevenson MD> Date Sean Stevenson MD Cosigner Signature: Date (if applicable) CC: PLASTIC SURGERY Observed: 01/06/2018 Status: F Source: [facility] VISIT REPORT 11:24 AM [facility] REPOSITORY [facility] [address] [place] [address] OFFICE VISIT Date of Service: 12/25/17 MR#: [id number] Acct: [id number] Name: ROBLES CARRASQUILLO Rep #: [id number] : 1970 Provider: Sean Stevenson MD Age/Sex: 47/F Location: [facility] Status: Signed Intake Vital Signs12/25/17 Height 5 ft 6 in 12/25/17 Weight: 284 lb 2 oz Intake Visit Reasons: postop surgery 12/16/17 Alining Inspector Required: No Accompanied by: None Is patient in pain?: Yes (RIGHT BREAST FEELS VERY TIGHT ) Pain scale (1-10): 5 Allergies codeine Allergy (Verified 01/02/18 15:26) Rash Penicillins Allergy (Verified 01/02/18 15:26) Rash NSAIDS (Non-Steroidal Anti-Inflamma Adverse Reaction (Verified 01/02/18 15:26) Other Medications Levothyroxine [Synthroid] 175 mcg PO DAILY 03/19/14 [History Confirmed 01/02/18] Calcium Carbonate/Vitamin D3 [Calcium 600-Vit D3 400 Caplet] 1 ea PO BID 08/15/15 [History Confirmed 01/02/18] Cholecalciferol (VIT D3) [Vitamin D3] 2,000 unit PO DAILY 08/15/15 [History Confirmed 01/02/18] Multivitamins,Ther W-Minerals [Multivitamin With Minerals] 1 tab PO DAILY 08/15/15 [History Confirmed 01/02/18] Nortriptyline HCl [Pamelor] 50 mg PO QHS 04/03/16 [History Confirmed 01/02/18] buPROPion XL [Wellbutrin Xl] 450 mg PO DAILY 04/18/17 [History Confirmed 01/02/18] Iron Polysaccharide Complex [Ferrex 150] 150 mg PO BID 05/01/17 [History Confirmed 01/02/18] Acetaminophen [Tylenol] 1,000 mg PO Q8H PRN #1 tab 05/06/17 [Rx Confirmed 01/02/18] Ascorbic Acid [Vitamin C] 1,000 mg PO BID 12/03/17 [History Confirmed 01/02/18] Fluoxetine HCl [Prozac] 40 mg PO DAILY 12/03/17 [History Confirmed 01/02/18] Magnesium 250 mg PO QHS 12/03/17 [History Confirmed 01/02/18] Zolpidem Tartrate [Ambien] 10 mg PO QHS 12/03/17 [History Confirmed 01/02/18] Diazepam [Valium] 5 mg PO 4X/DAY PRN PRN #30 tab 12/18/17 [Rx Confirmed 01/02/18] Docusate Sodium [Colace] 100 mg PO BID #60 cap 12/18/17 [Rx Confirmed 01/02/18] HYDROmorphone tablet [Dilaudid] 2 - 4 mg PO 4X/DAY PRN PRN 7 Days #60 tab 12/18/17 [Rx Confirmed 01/02/18] Vancomycin 1,250 mg IV Q8H 39 Days #117 vial 12/18/17 [Rx Confirmed 01/02/18] proMETHazine tablet [Phenergan tablet] 25 mg PO 4X/DAY PRN PRN #30 tab 12/18/17 [Rx Confirmed 01/02/18] PFSH Medical History Abscess (Acute) Anemia (Acute) Anxiety (Acute) BREAST LUMP/CYST (Acute) COMPROMISED BILATERAL BREAST REDUCTION NIPPLE GRAFTS (Acute) Depression (emotion) (Acute) Disproportion of reconstructed breast (Acute) Graves disease (Acute) Hypertriglyceridemia (Acute) Hypothyroidism (Acute 2001) MRSA (methicillin resistant staph aureus) culture positive (Acute) Metabolic syndrome (Acute) NONHEALING SURGICAL WOUND RIGHT BREAST (Acute) NONHEALING ULCER LEFT BREAST AT VERTICAL INCISION (Acute) Obesity (Acute) Ovarian cyst (Acute) RECURRENT INFECTED ULCER LEFT BREAST (Acute) RECURRENT NONHEALING INFECTED MRSA ULCER RIGHT BREAST (Acute) Seasonal allergies (Acute) Hypertension (Chronic) Surgical History BILATERAL BREAST REDUCTION MAMMAPLASTY (Acute) COMPLETE THYROIDECTOMY DUE TO GRAVES' DISEASE (Acute 11/2001) Delivered by section (Acute) EXCISIONAL DEBRIDEMENT RECURRENT NONHEALING INFECTED MRSA (Acute) EXCISIONL DEBRIDEMENT NONHEALING RECURRENT INFECTED ULCER (Acute) Gastric bypass status for obesity (Acute) HERNIA REPAIR WITH MESH (Acute 2014) History of bilateral ligation of fallopian tubes (Acute 2000) History of incisional hernia repair (Acute 07/03/10) History of tonsillectomy (Acute 12/2003) INCISION AND DRAINAGE BREAST ABSCESS (Acute) MASTOTOMY RIGHT BREAST (Acute) PANICULECTOMY (Acute 04/2013) S/P complete hysterectomy (Acute) SURGICAL PREPARATION AND REVISION BREAST RECONSTRUCTION (Acute) SURGICAL PREPARATION LEFT BREAST WITH MASTECTOMY (Acute) SURGICAL PREPARATION RIGHT BREAST (Acute) Family History Father , FROM MRSA AT AGE 50 Hypertension Hyperlipidemia Acute depression Diabetes Mother Asthma Grandmother Diabetes Heart disease Grandmother Hypertension Diabetes Grandfather Parkinson disease Brother Asthma Aunt Thyroid cancer Uncle Thyroid cancer Social History household members: significant other, children number of children: 2 current occupational status: unemployed Smoking Status: Former smoker second hand exposure: No alcohol intake: current details: BEER seatbelt use: always do you feel safe at home: Yes additional social history: SUN EXPOSURE: OCCASIONALLY HPI postop surgery 12/16/17: Details: Postop visit from her recent surgery on 12/16/17 where she underwent 1st stage delayed right breast reconstruction with placement of submuscular saline tissue bond runner (800 ml) and placement DermACELL decellularized dermis graft (160 cm2). She was discharged from the hospital on 12/18/17. Comes in today with incisional pain. Incision is dry and intact. Slight seroma present. She states she hasn't been wearing her binder consistently. Drainage has been 50-80 ml/day. Will hold off on removing the drains until next week. Instructed the patient it is important to wear her binder. Operative culture was discussed with the patient. It was negative. Because of her previous history of MRSA, she will continue the Vancomycin. Pathology was discussed with the patient. No malignancy was seen. Renewed her Dilaudid for pain (50 tabs). Renewed her Valium for spasm (30 tabs). Followup one week. Will remove one drain next week and the remaining drain the following week. 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 Incisional hernia repair 07/03/10 panniculectomy 04/2013 hernia repair with mesh - 2014 incision and drainage breast abscess - 04/12 and 08/13 surgical preparation left breast with mastotomy, and incision and drainage and excisional debridement recurrent left breast infection ulcer with 3 cm partial secondary wound closure - 11/21/15 excisional debridement nonhealing recurrent infected ulcer left breast at medial periareolar area with complex secondary wound closure - 12/28/15 excisional debridement nonhealing recurrent infected ulcer left breast at medial periareolar area with complex secondary wound closure - 04/04/16 mastotomy right breast with incision and drainage abscess and excision with partial mastectomy - 06/07/16 Bilateral breast reduction mammaplasty with bilateral free nipple graft reconstruction - 10/01/16 Surgical preparation revision right breast reconstruction with excisional debridement nonhealing surgical wounds lateral aspect and medial aspect with secondary wound closure and excisional debridement compromised graft ulceration nipple area and nonhealing surgical wound Tzone area with FTSG from right lateral breast (25 cm2) - 11/21/16 Surgical preparation right breast with incison and drainage and excisional debridement nonhealing infected nipple graft ulcer (63 cm2) - 01/10/17 Excisional debridement recurrent nonhealing infected MRSA ulcer right breast and compromised skin graft right nipple with completion mastectomy - 04/18/17 Incision and drainage right mastectomy MRSA wound infection - 05/02/17 1st stage delayed right breast reconstruction with placement of submuscular saline tissue bond runner (800 ml) and placement DermACELL decellularized dermis graft (160 cm2) - 12/16/17 FAMILY HISTORY: Father (biol.) - Has Family History of Hypertension PGM - Has Family History of Diabetes PGM - Has Family History of Heart Disease Mother (biol.) - Has Family History of Asthma Brother (full) - Has Family History of Asthma Father (biol.) - Has Family History of Depression negative for breast cancer. Heart disease. Thyroid cancer. Parkinson's disease. SOCIAL HISTORY: Patient was smoking up to 2-1ppd x 20 years. She has recently quit. Alcohol Use - no Drug Use - no Regular Exercise - no single, but live with partner for 12 years, have two children together, one son, one girl age 11 and 9, son has Asberger patient does not use aspirin. patient does not use ibuprofen. Assessment AND Plan Problems 1. Abscess of right breast N61.1 2. 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 History of MRSA infection Z86.14 5. Former smoker Z87.891 Medications Discontinued: hydromorphone (Dilaudid) Disconti2-4 mg PO 4X/DAY PRN pain N61.1, N65.1, Z86.14, Z90.11 nued Reason: By Stop Date Coding Level of Care Code Global Post Op Diagnoses Abscess of right breast N61.1 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 Disproportion of reconstructed breast N65.1 History of MRSA infection Z86.14 Former smoker Z87.891 01/06/18 1124 <Electronically signed by Sean Stevenson MD> Date Sean Stevenson MD [facility] Signature: Date (if applicable) CC: OPERATIVE REPORT Observed: 01/06/2018 Status: F Source: [place] 12:11 AM [facility] REPOSITORY [facility] Medical Records Department [address] [place] [address] Operative Report 12/16/171953 MR#: [id number] Acct: [id number] Name: ROBLES CARRASQUILLO Rep #: [id number] : 1970 47 From: Sean Stevenson MD PCP: Eduardo Rubio DO Status: DIS ALLEN Y Location: [place] [address] Report of Operation Date of Procedure: 12/16/17 Pre-Operative Diagnosis: 1. Recurrent infections bilateral breasts. 2. s/p completion mastectomy right breast. 3. Acquired absence right breast. 4. Disproportion reconstructed breasts. 5. Former smoker. 6. MRSA. Post-Operative Diagnosis: Same. Surgery/Procedure Performed:: 1st stage delayed right breast reconstruction with placement of submuscular saline tissue bond runner (800 ml) and placement DermACELL decellularized dermis graft (160 cm2). Description of Surgical Findings:: 47 year old woman comes in today for further evaluation breast reconstruction after undergoing completion mastectomy right breast in 04/14. She has a history of recurrent breast infections bilaterally. Most recently she had developed MRSA in the right breast. She has had multiple operative drainage procedures both before and after her bilateral breast reduction mammaplasty in 10/15. She denies fever. Her persistent scar pain in the right mastectomy incision area has improved. She denies any trauma. She is anxious to proceed with further breast reconstruction so she can then concentrate on getting back to work. The patient was informed of the risks and complications of the procedure including alternatives to surgery. These were discussed with the patient personally. The patient voices understanding and wishes to proceed. Some of the risks and complications were included in a form from the [employer] [employer]. IV Fluids - 900 ml. Urine Output - 250 ml. I used [place] CPX4 with Suture Tabs, Medium Height, Breast Tissue Groundhand, Textured, Integral Injection Dome (800 ml). Reference Number - [id number]. Lot Number - [id number]. Serial Number - [id number]. Expiration - December 22, 2020. I used DermACELL Decellularized Dermis Graft, (8 x 20 cm, 160 cm2). ID Number - [id number]. Code Number - [id number]. Expiration - June 14, 2021. I used Kiya absorbable hemostat. Reference Number - [id number]. Lot Number - [id number]. Expiration - July 26, 2022. line ordering clinician: Bubba Ramos. Type of Anesthesia:: General Specimen's removed: 1. Right breast tissue to Pathology and Microbiology. 2. MRSA by DNA PCR swab right breast. Drains: Khalida x 2. Estimated Blood Loss (mL): 150 ml. Fluids Replaced: 1150 ml (IV Fluids 900 ml, Urine Output 250 ml). Description of Procedure: Patient was seen in the preop area and in the sitting position, preop markings were made. The sternal midline was marked down to the umbilicus. The inframammary folds were marked bilaterally. The midclavicular lines were marked down to the inframammary folds. Patient was then placed in supine position and taken to OR and placed under general anesthesia. Her breasts were prepped and draped in the usual fashion. SCD's were placed for DVT prophylaxis. Perioperative antibiotics were given intravenously. A hartman catheter was then placed. Using xylocaine with epinephrine, the right mastectomy scar was infiltrated. After waiting 5 minutes for the anesthetic to take effect, I excised the scar in a horizontal elliptical fashion down to the pectoralis muscle. There was a lot of scar tissue involving the inferior aspect of the pectoralis muscle and was also excised. Some of this tissue was sent to Pathology for analysis to rule out carcinoma. Some of this tissue was sent to Microbiology for culture. An MRSA by DNA PCR swab of the right breast was also sent. I then elevated the pectoralis muscle inferiorly up to the clavicle superiorly and to the sternal midline medially. Some of the inferomedial pectoralis muscle fibers were incised to enlarge the pocket. I measured the submuscular pocket and felt an 800 ml [place] saline tissue bond runner would fit the pocket adequately. The air was removed from the bond runner and then filled with 30 ml saline. I tested the bond runner for leaks for which there was none, and the saline was removed. The breast pocket was infiltrated with saline and hemostasis was obtained with electrocautery. I sprayed some Kiya absorbable hemostat into the submuscular pocket. I placed 2 size 15 Khalida drains through separate stab incisions laterally and secured to the skin with 3-0 Nylon sutures. One drain was placed in the submuscular position and one drain was placed in the mastectomy position. The bond runner was then placed in the submuscular position and secured to the chest wall through the suture tabs with 3-0 Vicryl interrupted sutures. I then placed DermACELL decellularized dermis graft into the wound and secured to the inferior aspect of the pectoralis muscle over the inferior aspect of the bond runner to the chest wall and secured with 3-0 Vicryl interrupted sutures. Care was taken to place a malleable to protect the bond runner during the placement of the sutures. The size of the DermACELL decellularized dermis graft was 8 x 20 cm or 160 cm2. I sprayed Kiya absorbable hemostat into the rest of the mastectomy wound. I then closed the mastectomy incision with 3-0 Vicryl simple running suture for the underlying fascia. The deep dermis and subcutaneous tissue was approximated with 3-0 Monocryl interrupted sutures. The skin was approximated with 3-0 V lock unidirectional barbed running subcuticular suture. This was then followed with Histoacryl skin tissue adhesive. Kerlix gauze was applied to the incision followed by a chest wall binder. She tolerated the procedure well and was sent to PACU in satisfactory condition. She will be sent upstairs for a surgical observation overnight stay in the hospital. A PICC line will be placed tomorrow for continuation of her Vancomycin after discharge because of her history of MRSA. She will keep her head elevated during her initial postop period. She will have her drains removed in 10-14 days. Grafts/Implants Used: [place] saline tissue bond runner and DermACELL decellularized dermis graft. - Complications None. - Admit VTE Documentation VTE Present on Admission: No VTE Mechan Device Prophylaxis: SCD's VTE Pharm Prophylaxis ordered?: Yes Code Visit Surgery Charges CPT - 74521 ICD-10 - N61.1, Z90.11, N65.1, Z86.14, Z87.891 72067 N61.1, Z90.11, N65.1, Z86.14, Z87.891 01/06/18 0011 <Electronically signed by Sean Stevenson MD> Date Sean Stevenson MD CC: Jonn Pedroza MD; Sean Stevenson MD; Eduardo Rubio DO Signed CBC W/DIFF, AUTOMATED Collected: 01/05/2018 Status: F Source: R[place]I 8:36 AM [facility] REPOSITORY TYPE CODE TESTS RESULT OUT OF RANGE REFERENCE UNITS LAB L100.1000 4.4-11.0 K/mm3 Normal WBC 5.9 LAB L100.1200 4.2-5.4 M/mm3 Low RBC 3.87 LAB L100.1300 12.0-15.0 g/dl Low HGB 11.6 LAB L100.1400 37-47 % Normal HCT 37.7 LAB L100.1500 81-99 fL Normal MCV 97.4 LAB L100.1600 27.0-32.0 pg Normal MCH 30.0 LAB L100.1700 32-36 g/gl Low MCHC 30.8 LAB L100.1810 11.6-14.6 % High RDW CV 14.9 LAB L100.1820 35.1-43.9 fl High RDW SD 52.7 LAB L100.1900 150-450 K/mm3 Normal PLT 298 LAB L100.2000 6.2-12.0 fl Normal MPV 9.7 LAB L100.2100 47-70 % Normal NEUT% 61.2 LAB L100.2200 19-41 % Normal LY% 21.4 LAB L100.2300 0-10 % Normal MONO% 9.8 LAB L100.2400 0-5 % High EO% 6.9 LAB L100.2500 0-1 % Normal BASO% 0.5 LAB L100.2550 0.0-0.9 % Normal IM GRAN % 0.200 Result Comment: IG% - Immature Granulocytes (promyelocytes, myelocytes and metamyelocytes) > 1% indicates that a LEFT SHIFT is Present. LAB L100.2620 2.0-7.7 X10 3/uL Normal Absolute Neut 3.6 LAB L100.2720 0.83-4.51 X10 3/ul Normal Absolute Lymph 1.26 Performed By: #### L100.0100, L101.9900 #### [facility] [address] [place], [place], [address] ERYTHROCYTE SED RATE Collected: 01/05/2018 Status: F Source: [place] 8:36 AM [facility] REPOSITORY TYPE CODE TESTS RESULT OUT OF RANGE REFERENCE UNITS LAB L102.0000 0-20 mm/hr High SED RATE 42 Performed By: #### L100.0100, L101.9900 #### [facility] [address] [place], [place], [id number] VANCOMYCIN, TROUGH Collected: 01/05/2018 Status: F Source: [place] LEVEL 8:36 AM [facility] REPOSITORY TYPE CODE TESTS RESULT OUT OF RANGE REFERENCE UNITS LAB L501.8820 5.0-15.0 ug/mL Normal VANCO, TROUGH 11.8 Result Comment: VANCOMYCIN STANDARED DRUG THERAPY TROUGH LEVEL: 5.0 - 15.0 mg/L VANCOMYCIN HIGH INTENSITY THERAPY TROUGH LEVEL: 15.0 - 20.0 mg/L High Intensity therapy recommended for serious life threatening infections include: - Meningitis -Endocarditis -Pneumonia (Ventilator/Healtcare Associated) -Sepsis PLEASE CONTACT PHARMACY SERVICES (#[id number]) FOR INTERPRETATION OF RESULTS. Performed By: #### L501.8820 #### [facility] [address] [place], [place], [id number] COMPREHENSIVE METABOLIC Collected: 01/05/2018 Status: F Source: R[place]I PROFIL 8:36 AM [facility] REPOSITORY TYPE CODE TESTS RESULT OUT OF RANGE REFERENCE UNITS LAB L501.0100 74-106 mg/dL Normal GLU 94 Result Comment: Please note revised GLUCOSE reference range effective 2017. LAB L501.1000 7-18 mg/dL Normal BUN 12 LAB L501.1100 0.55-1.02 mg/dL Low CREAT,SERUM 0.52 Result Comment: The validity of the calculated GFR AND GFRAA in patients over 70 years has not been determined. Clinical correlation is essential. LAB L501.1110 >60 mL/min Normal EST GFR 134 Result Comment: Non- GFR Calc LAB L501.1115 >60 mL/min Normal EST GFR - AA 162 Result Comment: GFR Calc LAB L501.1300 10-20 RATIO High BUN/CRE 22.9 LAB L501.1500 6.4-8.2 g/dL Low T PROT 6.0 LAB L501.1800 3.2-5.0 g/dL Low ALB 3.1 LAB L501.1950 2.2-4.2 g/dL Normal GLOB 2.9 LAB L501.2000 0.9-2.4 RATIO Normal A/G 1.1 LAB L501.2200 8.5-10.1 mg/dL Low CA 8.2 LAB L501.4100 15-37 U/L Normal AST 25 Result Comment: Slight Hemolysis, Result may be falsely increased. LAB L501.4305 45-117 U/L Normal ALK P 70 LAB L501.4405 13-56 U/L Normal ALT 23 Result Comment: Please note revised ALT reference range effective 2017. LAB L501.4600 0.20-1.00 mg/dL Normal T BILI 0.20 LAB L501.5300 136-145 mmol/L Normal NA 139 LAB L501.5600 3.5-5.1 mmol/L Normal K 4.2 Result Comment: Slight Hemolysis, Result may be falsely increased. LAB L501.5900 98-107 mmol/L Normal CL 104 LAB L501.6100 21.0-32.0 mmol/L Normal CO2 27.0 LAB L501.6200 5-15 Normal 8 GAP Performed By: #### L500.4050, L501.6710 #### [facility] [address] [place], [place], [address] CRP Collected: 01/05/2018 Status: F Source: [place]I 8:36 AM [facility] REPOSITORY TYPE CODE TESTS RESULT OUT OF RANGE REFERENCE UNITS LAB L501.6710 0.0-3.0 mg/L High 6.47 C-REACTIVE PROT Result Comment: C-Reactive Protein (CRP) provides useful information for the diagnosis, therapy and monitoring of inflammatory processes and associated diseases. For the evaluation of Relative Risk for Cardiovascular Disease, a High Sensitivity CRP (HSCRP) should be ordered. Performed By: #### L500.4050, L501.6710 #### [facility] [address] [place], [address] CBC W/DIFF, AUTOMATED Collected: 12/29/2017 Status: F Source: R[place]I 8:34 AM [facility] REPOSITORY TYPE CODE TESTS RESULT OUT OF RANGE REFERENCE UNITS LAB L100.1000 4.4-11.0 K/mm3 Normal WBC 7.6 LAB L100.1200 4.2-5.4 M/mm3 Low RBC 3.76 LAB L100.1300 12.0-15.0 g/dl Low HGB 11.6 LAB L100.1400 37-47 % Low HCT 36.8 LAB L100.1500 81-99 fL Normal MCV 97.9 LAB L100.1600 27.0-32.0 pg Normal MCH 30.9 LAB L100.1700 32-36 g/gl Low MCHC 31.5 LAB L100.1810 11.6-14.6 % High RDW CV 14.8 LAB L100.1820 35.1-43.9 fl High RDW SD 51.5 LAB L100.1900 150-450 K/mm3 Normal PLT 350 LAB L100.2000 6.2-12.0 fl Normal MPV 9.5 LAB L100.2100 47-70 % Normal NEUT% 63.7 LAB L100.2200 19-41 % Normal LY% 24.2 LAB L100.2300 0-10 % Normal MONO% 6.7 LAB L100.2400 0-5 % Normal EO% 5.0 LAB L100.2500 0-1 % Normal BASO% 0.3 LAB L100.2550 0.0-0.9 % Normal IM GRAN % 0.100 Result Comment: IG% - Immature Granulocytes (promyelocytes, myelocytes and metamyelocytes) > 1% indicates that a LEFT SHIFT is Present. LAB L100.2620 2.0-7.7 X10 3/uL Normal Absolute Neut 4.8 LAB L100.2720 0.83-4.51 X10 3/ul Normal Absolute Lymph 1.83 Performed By: #### L100.0100, L101.9900 #### [facility] [address] [place], [address] ERYTHROCYTE SED RATE Collected: 12/29/2017 Status: F Source: [place] 8:34 AM [facility] REPOSITORY TYPE CODE TESTS RESULT OUT OF RANGE REFERENCE UNITS LAB L102.0000 0-20 mm/hr High SED RATE 49 Performed By: #### L100.0100, L101.9900 #### [facility] [address] [place], [address] VANCOMYCIN, TROUGH Collected: 12/29/2017 Status: F Source: [facility] 8:34 AM [facility] REPOSITORY TYPE CODE TESTS RESULT OUT OF RANGE REFERENCE UNITS LAB L501.8820 5.0-15.0 ug/mL Normal VANCO, TROUGH 13.5 Result Comment: VANCOMYCIN STANDARED DRUG THERAPY TROUGH LEVEL: 5.0 - 15.0 mg/L VANCOMYCIN HIGH INTENSITY THERAPY TROUGH LEVEL: 15.0 - 20.0 mg/L High Intensity therapy recommended for serious life threatening infections include: - Meningitis -Endocarditis -Pneumonia (Ventilator/Healtcare Associated) -Sepsis PLEASE CONTACT PHARMACY SERVICES (#[id number]) FOR INTERPRETATION OF RESULTS. Performed By: #### L501.8820 #### [facility] [address] [place], [address] COMPREHENSIVE METABOLIC Collected: 12/29/2017 Status: F Source: [facility] 8:34 AM [facility] REPOSITORY TYPE CODE TESTS RESULT OUT OF RANGE REFERENCE UNITS LAB L501.0100 74-106 mg/dL Normal GLU 96 Result Comment: Please note revised GLUCOSE reference range effective 2017. LAB L501.1000 7-18 mg/dL Normal BUN 13 LAB L501.1100 0.55-1.02 mg/dL Normal CREAT,SERUM 0.61 Result Comment: The validity of the calculated GFR AND GFRAA in patients over 70 years has not been determined. Clinical correlation is essential. LAB L501.1110 >60 mL/min Normal EST GFR 113 Result Comment: Non- GFR Calc LAB L501.1115 >60 mL/min Normal EST GFR - AA 136 Result Comment: GFR Calc LAB L501.1300 10-20 RATIO High BUN/CRE 21.3 LAB L501.1500 6.4-8.2 g/dL Low T PROT 6.3 LAB L501.1800 3.2-5.0 g/dL Low ALB 3.1 LAB L501.1950 2.2-4.2 g/dL Normal GLOB 3.2 LAB L501.2000 0.9-2.4 RATIO Normal A/G 1.0 LAB L501.2200 8.5-10.1 mg/dL Low CA 8.2 LAB L501.4100 15-37 U/L Normal AST 24 LAB L501.4305 45-117 U/L Normal ALK P 70 LAB L501.4405 13-56 U/L Normal ALT 25 Result Comment: Please note revised ALT reference range effective 2017. LAB L501.4600 0.20-1.00 mg/dL Normal T BILI 0.20 LAB L501.5300 136-145 mmol/L Normal NA 139 LAB L501.5600 3.5-5.1 mmol/L Normal K 4.2 LAB L501.5900 98-107 mmol/L Normal CL 104 LAB L501.6100 21.0-32.0 mmol/L Normal CO2 26.0 LAB L501.6200 5-15 Normal GAP 9 Performed By: #### L500.4050, L501.6710 #### [facility] [address] [place], [place], [id number] CRP Collected: 12/29/2017 Status: F Source: [place] 8:34 AM [facility] REPOSITORY TYPE CODE TESTS RESULT OUT OF RANGE REFERENCE UNITS LAB L501.6710 0.0-3.0 mg/L High 6.93 C-REACTIVE PROT Result Comment: C-Reactive Protein (CRP) provides useful information for the diagnosis, therapy and monitoring of inflammatory processes and associated diseases. For the evaluation of Relative Risk for Cardiovascular Disease, a High Sensitivity CRP (HSCRP) should be ordered. Performed By: #### L500.4050, L501.6710 #### [facility] [address] [place], [place], [id number] CBC-COMPLETE BLOOD CNT Collected: 12/22/2017 Status: F Source: ROHINI NO DIFF 9:24 AM [facility] REPOSITORY TYPE CODE TESTS RESULT OUT OF RANGE REFERENCE UNITS LAB L100.1000 4.4-11.0 K/mm3 Normal WBC 6.8 LAB L100.1200 4.2-5.4 M/mm3 Low RBC 3.65 LAB L100.1300 12.0-15.0 g/dl Low HGB 11.4 LAB L100.1400 37-47 % Low HCT 36.1 LAB L100.1500 81-99 fL Normal MCV 98.9 LAB L100.1600 27.0-32.0 pg Normal MCH 31.2 LAB L100.1700 32-36 g/gl Low MCHC 31.6 LAB L100.1810 11.6-14.6 % High RDW CV 14.9 LAB L100.1820 35.1-43.9 fl High RDW SD 52.4 LAB L100.1900 150-450 K/mm3 Normal PLT 297 LAB L100.2000 6.2-12.0 fl Normal MPV 9.7 Performed By: #### L100.0500, L101.9900 #### [facility] [address] [facility] [address] ERYTHROCYTE SED RATE Collected: 12/22/2017 Status: F Source: ROHINI 9:24 AM [facility] REPOSITORY TYPE CODE TESTS RESULT OUT OF RANGE REFERENCE UNITS LAB L102.0000 0-20 mm/hr High SED RATE 67 Performed By: #### L100.0500, L101.9900 #### [facility] [address] [place], [place], [address] VANCOMYCIN, TROUGH Collected: 12/22/2017 Status: F Source: ROHINI LEVEL 9:24 AM [facility] REPOSITORY TYPE CODE TESTS RESULT OUT OF RANGE REFERENCE UNITS LAB L501.8820 5.0-15.0 ug/mL Normal VANCO, TROUGH 11.1 Result Comment: VANCOMYCIN STANDARED DRUG THERAPY TROUGH LEVEL: 5.0 - 15.0 mg/L VANCOMYCIN HIGH INTENSITY THERAPY TROUGH LEVEL: 15.0 - 20.0 mg/L High Intensity therapy recommended for serious life threatening infections include: - Meningitis -Endocarditis -Pneumonia (Ventilator/Healtcare Associated) -Sepsis PLEASE CONTACT PHARMACY SERVICES (#[id number]) FOR INTERPRETATION OF RESULTS. Performed By: #### L501.8820 #### [facility] [address] [place], [address] COMPREHENSIVE METABOLIC Collected: 12/22/2017 Status: F Source: ROHINI SOL 9:24 AM [facility] REPOSITORY TYPE CODE TESTS RESULT OUT OF RANGE REFERENCE UNITS LAB L501.0100 74-106 mg/dL Normal GLU 91 Result Comment: Please note revised GLUCOSE reference range effective 2017. LAB L501.1000 7-18 mg/dL Normal BUN 13 LAB L501.1100 0.55-1.02 mg/dL Low CREAT,SERUM 0.48 Result Comment: The validity of the calculated GFR AND GFRAA in patients over 70 years has not been determined. Clinical correlation is essential. LAB L501.1110 >60 mL/min Normal EST GFR 147 Result Comment: Non- GFR Calc LAB L501.1115 >60 mL/min Normal EST GFR - AA 178 Result Comment: GFR Calc LAB L501.1300 10-20 RATIO High BUN/CRE 26.9 LAB L501.1500 6.4-8.2 g/dL Low T PROT 6.1 LAB L501.1800 3.2-5.0 g/dL Low ALB 2.9 LAB L501.1950 2.2-4.2 g/dL Normal GLOB 3.2 LAB L501.2000 0.9-2.4 RATIO Normal A/G 0.9 LAB L501.2200 8.5-10.1 mg/dL Low CA 8.2 LAB L501.4100 15-37 U/L Normal AST 22 LAB L501.4305 45-117 U/L Normal ALK P 66 LAB L501.4405 13-56 U/L Normal ALT 26 Result Comment: Please note revised ALT reference range effective 2017. LAB L501.4600 0.20-1.00 mg/dL Low T BILI 0.10 LAB L501.5300 136-145 mmol/L Normal NA 140 LAB L501.5600 3.5-5.1 mmol/L Normal K 4.2 LAB L501.5900 98-107 mmol/L Normal CL 103 LAB L501.6100 21.0-32.0 mmol/L Normal CO2 29.0 LAB L501.6200 5-15 Normal GAP 8 Performed By: #### L500.4050, L501.6710 #### [facility] [address] [place], [address] CRP Collected: 12/22/2017 Status: F Source: VANDERWAGEN 9:24 AM [facility] REPOSITORY TYPE CODE TESTS RESULT OUT OF RANGE REFERENCE UNITS LAB L501.6710 0.0-3.0 mg/L High 14.00 C-REACTIVE PROT Result Comment: C-Reactive Protein (CRP) provides useful information for the diagnosis, therapy and monitoring of inflammatory processes and associated diseases. For the evaluation of Relative Risk for Cardiovascular Disease, a High Sensitivity CRP (HSCRP) should be ordered. Performed By: #### L500.4050, L501.6710 #### [facility] [address] [place], [address] DISCHARGE INSTRUCTION Observed: 12/18/2017 Status: F Source: VANDERWAGEN 8:42 PM [facility] REPOSITORY [facility] Medical Records Department [address] [place] [address] Instructions for Home/Discharge Instructions 12/18/172028 MR#: [id number] Acct: [id number] Name: ROBLES CARRASQUILLO Rep #: [id number] : 1970 47 From: Sean Stevenson MD PCP: Eduardo Rubio DO Status: ADM ALLEN You will use the following diet at home:: No restrictions Discharge Activity: May not drive while taking narcotic pain medications., May Not Shower - until the drains are removed., - - keep head elevated. no heavy lifting. May shower in (days): 14 - may shower when the drains are removed. May resume sexual activity in: 10-14 days Weight Bearing Status: Weight bearing as tolerated Lifting Restrictions: 20 lbs. Keep extremity elevated above heart level: - - elevate head. Call your doctor if your incision/area has: Continuous Slow Oozing, Sudden Increased Bleeding, Increased Pain/ Swelling, Increased Redness, Foul Smelling Discharge, Swelling at the incision site Call your doctor if you observe: Fever of 101 or Higher, Coldness, Increased Pain, Shortness of breath, Chest pain, Calf discomfort, Uncontrolled pain Suture Line Care: - - dry dressings daily. Change Dressing in (Days):: 1 - dry dressings daily. Cleanse incision/area with: - - may get incision wet in the shower after drains are removed. Drain: Suction - khalida drain x 2 to bulb suction. empty and record output daily. Additional Instructions: Patient to go to the lab at [facility] qMonday for 6 weeks to get CBC, CMP, ESR, CRP, and Vancomycin Trough. Pharmacy to dose. Please fax results also to [phone]. Allergies/Adverse Reactions: Allergies codeine Allergy (Verified 12/03/17 08:20) Rash Penicillins Allergy (Verified 12/03/17 08:20) Rash NSAIDS (Non-Steroidal Anti-Inflamma Adverse Reaction (Verified 12/03/17 08:20) Other UNABLE TO TAKE DUE TO WEIGHT LOSS SURGERY Medications to take at Discharge Levothyroxine [Synthroid] 175 mcg PO DAILY 03/19/14 Calcium Carbonate/Vitamin D3 [Calcium 600-Vit D3 400 Caplet] 1 ea PO BID 08/15/15 Cholecalciferol (VIT D3) [Vitamin D3] 2,000 unit PO DAILY 08/15/15 Multivitamins,Ther W-Minerals [Multivitamin With Minerals] 1 tab PO DAILY 08/15/15 Nortriptyline HCl [Pamelor] 50 mg PO QHS 04/03/16 buPROPion XL [Wellbutrin Xl] 450 mg PO DAILY 04/18/17 Iron Polysaccharide Complex [Ferrex 150] 150 mg PO BID 05/01/17 Acetaminophen [Tylenol] 1,000 mg PO Q8H PRN #1 tab 05/06/17 Ascorbic Acid [Vitamin C] 1,000 mg PO BID 12/03/17 Fluoxetine HCl [Prozac] 40 mg PO DAILY 12/03/17 Magnesium 250 mg PO QHS 12/03/17 Zolpidem Tartrate [Ambien] 10 mg PO QHS 12/03/17 Diazepam [Valium] 5 mg PO 4X/DAY PRN PRN #30 tab 12/18/17 Docusate Sodium [Colace] 100 mg PO BID #60 cap 12/18/17 HYDROmorphone tablet [Dilaudid] 2 - 4 mg PO 4X/DAY PRN PRN 7 Days #60 tab 12/18/17 Vancomycin 1,250 mg IV Q8H 39 Days #117 vial 12/18/17 proMETHazine tablet [Phenergan tablet] 25 mg PO 4X/DAY PRN PRN #30 tab 12/18/17 The following prescriptions were given: Diazepam [Valium] 5 mg PO 4X/DAY PRN PRN #30 tab PRN Reason: Spasms HYDROmorphone tablet [Dilaudid] 2 - 4 mg PO 4X/DAY PRN PRN 7 Days #60 tab PRN Reason: Pain proMETHazine tablet [Phenergan tablet] 25 mg PO 4X/DAY PRN PRN #30 tab PRN Reason: NAUSEA/VOMITING Vancomycin 1,250 mg IV Q8H 39 Days #117 vial Docusate Sodium [Colace] 100 mg PO BID #60 cap Primary Care Physician: Eduardo Perkins DO [Primary Care Provider] - Please Follow Up With: Sean Stevenson MD When: 1-2 weeks Proposed Discharge Date: 12/18/17 12/18/172041 <Electronically signed by Sean Stevenson MD> Date Sean Stevenson MD CC: Jonn Pedroza MD; Eduardo Rubio DO VANCOMYCIN, TROUGH Collected: 12/18/2017 Status: F Source: VANDERWAGEN LEVEL 7:35 AM [facility] REPOSITORY Order Comment: Time Medication is to be Given? 0800 TYPE CODE TESTS RESULT OUT OF RANGE REFERENCE UNITS LAB L501.8820 5.0-15.0 ug/mL Normal VANCO, TROUGH 7.0 Result Comment: VANCOMYCIN STANDARED DRUG THERAPY TROUGH LEVEL: 5.0 - 15.0 mg/L VANCOMYCIN HIGH INTENSITY THERAPY TROUGH LEVEL: 15.0 - 20.0 mg/L High Intensity therapy recommended for serious life threatening infections include: - Meningitis -Endocarditis -Pneumonia (Ventilator/Healtcare Associated) -Sepsis PLEASE CONTACT PHARMACY SERVICES (#[id number]) FOR INTERPRETATION OF RESULTS. Performed By: #### L501.8820 #### [facility] [address] [place], [address] HISTORY AND PHYSICAL Observed: 12/18/2017 Status: F Source: VANDERWAGEN EXAM 1:29 AM [facility] REPOSITORY [facility] Medical Records Department [address] [place] [address] History and Physical 12/15/17 2200 MR#: [id number] Acct: [id number] Name: ROBLES CARRASQUILLO Rep #: [id number] : 1970 47 From: Sean Stevenson MD PCP: Eduardo Rubio, DO [place] [facility] [place] [facility] [id number] History and Physical Date of Admission: 12/16/17 HISTORY OF PRESENT ILLNESS 47 year old woman comes in today for further evaluation breast reconstruction after undergoing completion mastectomy right breast in 04/14. She has a history of recurrent breast infections bilaterally. Most recently she had developed MRSA in the right breast. She has had multiple operative drainage procedures both before and after her bilateral breast reduction mammaplasty in 10/15. She denies fever. Her persistent scar pain in the right mastectomy incision area has improved. She denies any trauma. She is anxious to proceed with further breast reconstruction so she can then concentrate on getting back to work. 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 Incisional hernia repair 07/03/10 panniculectomy 04/2013 hernia repair with mesh - 2014 incision and drainage breast abscess - 04/12 and 08/13 surgical preparation left breast with mastotomy, and incision and drainage and excisional debridement recurrent left breast infection ulcer with 3 cm partial secondary wound closure - 11/21/15 excisional debridement nonhealing recurrent infected ulcer left breast at medial periareolar area with complex secondary wound closure - 12/28/15 excisional debridement nonhealing recurrent infected ulcer left breast at medial periareolar area with complex secondary wound closure - 04/04/16 mastotomy right breast with incision and drainage abscess and excision with partial mastectomy - 06/07/16 Bilateral breast reduction mammaplasty with bilateral free nipple graft reconstruction - 10/01/16 Surgical preparation revision right breast reconstruction with excisional debridement nonhealing surgical wounds lateral aspect and medial aspect with secondary wound closure and excisional debridement compromised graft ulceration nipple area and nonhealing surgical wound Tzone area with FTSG from right lateral breast (25 cm2) - 11/21/16 Surgical preparation right breast with incison and drainage and excisional debridement nonhealing infected nipple graft ulcer (63 cm2) - 01/10/17 Excisional debridement recurrent nonhealing infected MRSA ulcer right breast and compromised skin graft right nipple with completion mastectomy - 04/18/17 Incision and drainage right mastectomy MRSA wound infection - 05/02/17 MEDICATIONS: Pamelor. MVI. Synthroid. Vitamin B12. Celexa. Vitamin D3. Wellbutrin. Vitamin E. Iron supplements. B Complex with Vitamin C. ALLERGIES: Codeine. Penicillin. NSAID's. FAMILY HISTORY: Father (biol.) - Has Family History of Hypertension PGM - Has Family History of Diabetes PGM - Has Family History of Heart Disease Mother (biol.) - Has Family History of Asthma Brother (full) - Has Family History of Asthma Father (biol.) - Has Family History of Depression negative for breast cancer. Heart disease. Thyroid cancer. Parkinson's disease. SOCIAL HISTORY: Patient was smoking up to 09/30-1ppd x 20 years. She has recently quit. Alcohol Use - no Drug Use - no Regular Exercise - no single, but live with partner for 12 years, have two children together, one son, one girl age 11 and 9, son has Asberger patient does not use aspirin. patient does not use ibuprofen. REVIEW OF SYSTEMS: General - Denies fever, fatigue and weakness. Had 150 lb weight loss after gastric bypass in 2009. Eyes - Denies eye pain. ENT - Denies nasal congestion and sore throat. Had thyroidectomy. Had tonsillectomy. CV - Denies chest pain or discomfort, fatigue, lightheadedness and shortness of breath with exertion. Resp - Denies cough and shortness of breath. Patient is a former smoker. GI - Denies nausea, vomiting, diarrhea and constipation. Gastric bypass due to severe obesity 158lbs loss. - Denies blood in urine and urinary frequency. Had hysterectomy MS - Complains of back pain. Denies joint pain, stiffness, muscle weakness and arthritis. Derm - Denies suspicious lesions and skin cancer. Neuro - Denies headaches and numbness. Psych - Complains of anxiety and depression. Endo - Denies excessive urination and excessive thirst. Has had recurrent breast infections. Heme - Denies bleeding and abnormal bruising. PHYSICAL EXAMINATION: General: well developed, well nourished, in no acute distress. Bra size was 42 D prior to the breast reduction. Head: normocephalic and atraumatic. Eyes: PERRL/EOM intact, conjunctiva and sclera clear. Neck: no masses, thyromegaly, or abnormal cervical nodes. Breasts: Left breast is well healed with vertical and horizontal incisions. Good shape and contour left breast. Right breast mastectomy incision healed. No clinical evidence of infection. Lungs: clear bilaterally to auscultation. Heart: regular rate and rhythm. Msk: no bony tenderness. Pulses: pulses normal in all 4 extremities. Extremities: no clubbing, cyanosis, edema, or deformity noted with normal full range of motion of all joints. Neurologic: cranial nerves II-XII grossly intact. Skin: no rashes. Cervical Nodes: no significant adenopathy. Axillary Nodes: no significant adenopathy. Psych: alert and cooperative; normal mood and affect; normal attention span and concentration. ASSESSMENT 1. Recurrent infections bilateral breasts. 2. Bilateral macromastia s/p breast reduction mammaplasty. 3. s/p completion mastectomy right breast. 4. Acquired absence right breast. 4. Disproportion reconstructed breasts. 5. Former smoker. 6. MRSA. PLAN Her recent MRSA ulcer right breast remains healed. She comes in today for continued discussion of her breast reconstruction options. She is interested in a saline tissue bond runner followed by replacement cohesive gel implant. Autogenous reconstruction with the TRAM flap was discussed. The quantity is there for reconstruction of the breast. However, the quality is suboptimal which can be seen in patients with gastric bypass surgery. There is looseness between the skin and subcutaneous tissue which increases risk of wound healing problems because the perforators to the skin are not ideal. To improve the perforators to the skin, a delay procedure could be performed or she could be evaluated at a tertiary center for microvascular free tissue transfer breast reconstruction. She is interested in staying local. She is looking for the reconstruction that has a quicker recovery since she would like to go back to work in a timely fashion. So she has decided on proceeding with placement of a saline tissue bond runner at this time. She understands that with her history of recurrent infections, the foreign body implant may become infected. Hopefully by proceeding with the completion mastectomy, the recurrent infections should be resolved. However if recurrent infections persist and the foreign body implant is removed, she will then consider autogenous breast reconstruction options at that time. She continues to show good healing mastectomy scar right breast with no further evidence of infection, and I told the patient that I will proceed with the saline tissue bond runner next month because of her recent MRSA infection. Her MRSA ulcer right breast had healed in August. Ideally I would like to wait 6 months to allow the swelling to subside and to make sure recurrent infections don't develop. Since she is anxious to get back into the work force, I told her I can consider the surgery in 3 months instead. Since the mastectomy scar is stable with no evidence of further infection, I will proceed next month. Patient was in agreement. Surgery will be done under general anesthesia with a surgical observation overnight stay in the hospital. Because of her history of MRSA, I will culture the wound at the time of surgery. I will treat with Vancomycin and will place a PICC line for extended antibiotic usage because of her extensive history of breast infections. After surgery, if there is compromise with healing of the breast flaps, she can continue her HBO treatments. The patient was informed of the risks and complications of the procedure including alternatives to surgery. These were discussed with the patient personally. The patient voices understanding and wishes to proceed. Some of the risks and complications were included in a form from the [employer] [employer]. Will check a Prealbumin preoperatively. If it is quite low, I would consider postponing the surgery for an additional 1-2 months until her nutrition is maximized. Followup after her surgery. 12/18/17 0129 <Electronically signed by Sean Stevenson MD> Date Sean Stevenson MD Cosign Signature: Date (if applicable) CC: Jonn Pedroza MD; Sean Stevenson MD; Eduardo Rubio DO; [facility] Signed CBC-COMPLETE BLOOD CNT Collected: 12/17/2017 Status: F Source: ROHINI NO DIFF 5:33 AM [facility] REPOSITORY TYPE CODE TESTS RESULT OUT OF RANGE REFERENCE UNITS LAB L100.1000 4.4-11.0 K/mm3 Normal WBC 7.8 LAB L100.1200 4.2-5.4 M/mm3 Low RBC 3.99 LAB L100.1300 12.0-15.0 g/dl Normal HGB 12.0 LAB L100.1400 37-47 % Normal HCT 39.9 LAB L100.1500 81-99 fL High MCV 100.0 LAB L100.1600 27.0-32.0 pg Normal MCH 30.1 LAB L100.1700 32-36 g/gl Low MCHC 30.1 LAB L100.1810 11.6-14.6 % High RDW CV 15.5 LAB L100.1820 35.1-43.9 fl High RDW SD 56.1 LAB L100.1900 150-450 K/mm3 Normal PLT 237 LAB L100.2000 6.2-12.0 fl Normal MPV 10.1 Performed By: #### L100.0500 #### [facility] [address] [place], [address] BASIC METABOLIC Collected: 12/17/2017 Status: F Source: ROHINI PROFILE (BMP) 5:33 AM [facility] REPOSITORY TYPE CODE TESTS RESULT OUT OF RANGE REFERENCE UNITS LAB L501.0100 74-106 mg/dL Normal GLU 101 Result Comment: Fasting Glucose result from 100 to 125 mg/dL suggests IMPAIRED HOMEOSTASIS per A.D.A. criteria. Please note revised GLUCOSE reference range effective 2017. LAB L501.1000 7-18 mg/dL Normal BUN 11 LAB L501.1100 0.55-1.02 mg/dL Normal CREAT,SERUM 0.56 Result Comment: The validity of the calculated GFR AND GFRAA in patients over 70 years has not been determined. Clinical correlation is essential. LAB L501.1110 >60 mL/min Normal EST GFR 123 Result Comment: Non- GFR Calc LAB L501.1115 >60 mL/min Normal EST GFR - AA 149 Result Comment: GFR Calc LAB L501.1255 ml/min Normal Estimated CRCL 118.76 LAB L501.1300 10-20 RATIO BUN/CRE Normal 19.6 LAB L501.2200 8.5-10 mg/dL Low .1 CA 8.3 LAB L501.5300 136-14 mmol/L 5 NA Normal 139 LAB L501.5600 3.5-5. mmol/L 1 K Normal 4.0 LAB L501.5900 98-107 mmol/L CL Normal 102 LAB L501.6100 21.0-3 mmol/L 2.0 CO2 Normal 31.0 LAB L501.6200 5-15 GAP Normal 6 Performed By: #### L500.2500 #### [facility] [address] [facility] [place], [place], [address] MRSA WOUND DNA BY Collected: 12/16/2017 Status: F Source: ROHINI PCR 12:00 AM [facility] REPOSITORY Order Comment: Has pt arrived? Y Comments: RIGHT BREAST TISSUE Specimen Source? RIGHT BREAST TISSUE TYPE CODE TESTS RESULT OUT OF RANGE REFERENCE UNITS LAB L8200.1100 Negative Normal MRSA Negative RESULT LAB L8200.1150 Negative Normal SA RESULT NEGATIVE Performed By: #### L8200.1075 #### [facility] [address] [facility] [place], [address] Observed: 12/16/2017 Status: F Source: ROHINI CULTURE, DEEP WOUND 12:00 AM [facility] REPOSITORY Order Date: 04/30/17 Has pt arrived? Y Comments: RIGHT BREAST TISSUE Gram Stain Gram Stain Rare Red Blood Cells No organisms seen Wound Culture No growth aerobically. Cult, Anaerobic No growth in 5 days. Performed By: #### M100.1500 #### [facility] [address] [facility] [place], [address] BREAST BIOPSY Observed: 12/16/2017 Status: F Source: ROHINI (CHOOSE SITE) 12:00 AM [facility] REPOSITORY Patient: ROBLES CARRASQUILLO : 1970 (47/F) Acct Num: [id number] Phys: Sean Stevenson MD Unit Num: [id number] Loc: MS2 [id number] Specimen: [id number] Received: 12/16/17 145 Spec Type: BREAST BX TISSUES TISSUES: Right breast, NOS GROSS DESCRIPTION Received in fixative is one container labeled with the patient's name and designated right breast tissue. The specimen consists of a piece of skin with underlying tissue measuring 17 x 2.5 cm and up to 3 cm in length. The skin surface shows focal scar tissue. Serial sections do not reveal any mass lesion. Reliner sections are submitted in four cassettes. / SJ:latha 12/16/17 TC: 3 CPT: 75880 HEADER OPERATION: Right breast reconstruction, delayed first stage, placement PRE-OP DIAGNOSIS: Acquired absence right breast, S/P completion mastectomy right breast TISSUE SUBMITTED: Right breast tissue MICROSCOPIC DESCRIPTION Slides are reviewed. MICROSCOPIC DIAGNOSIS Right breast tissue, excision: Dermal fibrosis with mild chronic inflammation consistent with scar. Focal intradermal inclusion cyst. No evidence of malignancy. AM:latha 12/17/17 Signed Sudheer [facility] 12/17/17 <signature on file> Performed By: #### PBRBX #### [facility] [address] [place], [address] Observed: 12/16/2017 Status: F Source: ROHINI CULTURE, FUNGUS W/ 12:00 AM [facility] [id number] REPOSITORY Comments: RIGHT BREAST TISSUE Has pt arrived? Y Is this test to exclude patient from TB Isolation? Sandra Denton,[id number] TESTING PERFORMED AT [facility]. ORIGINAL REPORT ON FILE IN LAB CONTAINS ADDITIONAL TEST SITE INFORMATION. CUF No yeast or mold isolated after [address] TESTING PERFORMED AT [facility]. ORIGINAL REPORT ON FILE IN LAB CONTAINS ADDITIONAL TEST SITE INFORMATION. Fungus Stain No yeast or mold observed. Performed By: #### M600.1900 #### [facility] [address] [place], [address] CBC-COMPLETE BLOOD CNT Collected: 12/15/2017 Status: F Source: [place]ER[place] NO DIFF 12:08 PM [facility] REPOSITORY TYPE CODE TESTS RESULT OUT OF RANGE REFERENCE UNITS LAB L100.1000 4.4-11.0 K/mm3 Normal WBC 7.1 LAB L100.1200 4.2-5.4 M/mm3 Normal RBC 4.20 LAB L100.1300 12.0-15.0 g/dl Normal HGB 13.1 LAB L100.1400 37-47 % Normal HCT 41.4 LAB L100.1500 81-99 fL Normal MCV 98.6 LAB L100.1600 27.0-32.0 pg Normal MCH 31.2 LAB L100.1700 32-36 g/gl Low MCHC 31.6 LAB L100.1810 11.6-14.6 % High RDW CV 15.1 LAB L100.1820 35.1-43.9 fl High RDW SD 53.9 LAB L100.1900 150-450 K/mm3 Normal PLT 292 LAB L100.2000 6.2-12.0 fl Normal MPV 10.3 Performed By: #### L100.0500, L500.2500, L501.9520, L506.0500 #### [facility] [address] [place], [place], [address] BASIC METABOLIC Collected: 12/15/2017 Status: F Source: ROHINI PROFILE (BMP) 12:08 PM [facility] REPOSITORY TYPE CODE TESTS RESULT OUT OF RANGE REFERENCE UNITS LAB L501.0100 74-106 mg/dL Normal GLU 100 Result Comment: Fasting Glucose result from 100 to 125 mg/dL suggests IMPAIRED HOMEOSTASIS per A.D.A. criteria. Please note revised GLUCOSE reference range effective 2017. LAB L501.1000 7-18 mg/dL Normal BUN 10 LAB L501.1100 0.55-1.02 mg/dL Normal CREAT,SERUM 0.72 Result Comment: The validity of the calculated GFR AND GFRAA in patients over 70 years has not been determined. Clinical correlation is essential. LAB L501.1110 >60 mL/min Normal EST GFR 92 Result Comment: Non- GFR Calc LAB L501.1115 >60 mL/min Normal EST GFR - AA 112 Result Comment: GFR Calc LAB L501.1300 10-20 RATIO Normal BUN/CRE 13.8 LAB L501.2200 8.5-10.1 mg/dL CA Normal 8.6 LAB L501.5300 136-145 mmol/L NA Normal 140 LAB L501.5600 3.5-5.1 mmol/L K Normal 4.1 LAB L501.5900 98-107 mmol/L CL Normal 103 LAB L501.6100 21.0-32.0 mmol/L Normal CO2 31.0 LAB L501.6200 5-15 Normal GAP 6 Performed By: #### L100.0500, L500.2500, L501.9520, L506.0500 #### [facility] [address] [place], [address] THYROID STIM HORMONE Collected: 12/15/2017 Status: F Source: ROHINI (TSH) 12:08 PM [facility] REPOSITORY TYPE CODE TESTS RESULT OUT OF RANGE REFERENCE UNITS LAB L501.9520 0.358-3.74 uIU/mL Normal TSH 1.25 Performed By: #### L100.0500, L500.2500, L501.9520, L506.0500 #### [facility] [address] [place], [address] PREALBUMIN Collected: 12/15/2017 Status: F Source: VANDERWAGEN 12:08 PM [facility] REPOSITORY TYPE CODE TESTS RESULT OUT OF RANGE REFERENCE UNITS LAB L506.0500 20.0-40.0 mg/dL Normal PREALBUMIN 34.8 Performed By: #### L100.0500, L500.2500, L501.9520, L506.0500 #### [facility] [address] [place], [address] PLASTIC SURGERY Observed: 12/08/2017 Status: F Source: [place]ER[place] VISIT REPORT 10:37 AM [facility] REPOSITORY [facility] [address] [place] [address] OFFICE VISIT Date of Service: 11/12/17 MR#: [id number] Acct: [id number] Name: ROBLES CARRASQUILLO Rep #: [id number] : 1970 Provider: Sean Stevenson MD Age/Sex: 47/F Location: [facility] Status: Signed Intake Vital Signs11/12/17 Height 5 ft 6 in 11/12/17 Weight: 268 lb 7 oz Intake Visit Reasons: evaluation breast reconstruction Alining Inspector Required: No Accompanied by: None Is patient in pain?: No Allergies codeine Allergy (Verified 12/03/17 08:20) Rash Penicillins Allergy (Verified 12/03/17 08:20) Rash NSAIDS (Non-Steroidal Anti-Inflamma Adverse Reaction (Verified 12/03/17 08:20) Other Medications Levothyroxine [Synthroid] 175 mcg PO DAILY 03/19/14 [History Confirmed 12/03/17] Calcium Carbonate/Vitamin D3 [Calcium 600-Vit D3 400 Caplet] 1 ea PO BID 08/15/15 [History Confirmed 12/03/17] Cholecalciferol (VIT D3) [Vitamin D3] 2,000 unit PO DAILY 08/15/15 [History Confirmed 12/03/17] Multivitamins,Ther W-Minerals [Multivitamin With Minerals] 1 tab PO DAILY 08/15/15 [History Confirmed 12/03/17] Vitamin E 400 unit PO DAILY 08/15/15 [History Confirmed 12/03/17] Nortriptyline HCl [Pamelor] 50 mg PO QHS 04/03/16 [History Confirmed 12/03/17] BuPROPion (XL) [Wellbutrin Xl] 450 mg PO DAILY 04/18/17 [History Confirmed 12/03/17] Iron Polysaccharide Complex [Ferrex 150] 150 mg PO BID 05/01/17 [History Confirmed 12/03/17] Acetaminophen [Tylenol Extra Strength] 1,000 mg PO Q8H PRN #1 tab 05/06/17 [Rx Confirmed 12/03/17] Nutritional Supplement [Butch - ORANGE FLAVOR] 1 packet PO BIDCM #60 packet 05/06/17 [Rx Confirmed 12/03/17] ProMETHAzine [Phenergan] 25 mg PO BID PRN 06/20/17 [History Confirmed 12/03/17] Ascorbic Acid [Vitamin C] 1,000 mg PO BID 12/03/17 [History Confirmed 12/03/17] Fluoxetine HCl [Prozac] 40 mg PO DAILY 12/03/17 [History Confirmed 12/03/17] Magnesium 250 mg PO QHS 12/03/17 [History Confirmed 12/03/17] Zolpidem Tartrate [Ambien] 10 mg PO QHS 12/03/17 [History Confirmed 12/03/17] [facility] Medical History Abscess (Acute) Anemia (Acute) Anxiety (Acute) BREAST LUMP/CYST (Acute) COMPROMISED BILATERAL BREAST REDUCTION NIPPLE GRAFTS (Acute) Depression (emotion) (Acute) Disproportion of reconstructed breast (Acute) Graves disease (Acute) Hypertriglyceridemia (Acute) Hypothyroidism (Acute 2001) MRSA (methicillin resistant staph aureus) culture positive (Acute) Metabolic syndrome (Acute) NONHEALING SURGICAL WOUND RIGHT BREAST (Acute) NONHEALING ULCER LEFT BREAST AT VERTICAL INCISION (Acute) Obesity (Acute) Ovarian cyst (Acute) RECURRENT INFECTED ULCER LEFT BREAST (Acute) RECURRENT NONHEALING INFECTED MRSA ULCER RIGHT BREAST (Acute) Seasonal allergies (Acute) Hypertension (Chronic) Surgical History BILATERAL BREAST REDUCTION MAMMAPLASTY (Acute) COMPLETE THYROIDECTOMY DUE TO GRAVES' DISEASE (Acute 11/2001) Delivered by section (Acute) EXCISIONAL DEBRIDEMENT RECURRENT NONHEALING INFECTED MRSA (Acute) EXCISIONL DEBRIDEMENT NONHEALING RECURRENT INFECTED ULCER (Acute) Gastric bypass status for obesity (Acute) HERNIA REPAIR WITH MESH (Acute 2014) History of bilateral ligation of fallopian tubes (Acute 2000) History of incisional hernia repair (Acute 07/03/10) History of tonsillectomy (Acute 12/2003) INCISION AND DRAINAGE BREAST ABSCESS (Acute) MASTOTOMY RIGHT BREAST (Acute) PANICULECTOMY (Acute 04/2013) S/P complete hysterectomy (Acute) SURGICAL PREPARATION AND REVISION BREAST RECONSTRUCTION (Acute) SURGICAL PREPARATION LEFT BREAST WITH MASTECTOMY (Acute) SURGICAL PREPARATION RIGHT BREAST (Acute) Family History Father , FROM MRSA AT AGE 50 Hypertension Hyperlipidemia Acute depression Diabetes Mother Asthma Grandmother Diabetes Heart disease Grandmother Hypertension Diabetes Grandfather Parkinson disease Brother Asthma Aunt Thyroid cancer Uncle Thyroid cancer Social History household members: significant other, children number of children: 2 current occupational status: unemployed Smoking Status: Former smoker second hand exposure: No alcohol intake: current details: BEER seatbelt use: always do you feel safe at home: Yes additional social history: SUN EXPOSURE: OCCASIONALLY HPI evaluation breast reconstruction: Details: HISTORY OF PRESENT ILLNESS 47 year old woman comes in today for further evaluation breast reconstruction after undergoing completion mastectomy right breast in 04/14. She has a history of recurrent breast infections bilaterally. Most recently she had developed MRSA in the right breast. She has had multiple operative drainage procedures both before and after her bilateral breast reduction mammaplasty in 10/15. She denies fever. Her persistent scar pain in the right mastectomy incision area has improved. She denies any trauma. She is anxious to proceed with further breast reconstruction so she can then concentrate on getting back to work. 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 Incisional hernia repair 07/03/10 panniculectomy 04/2013 hernia repair with mesh - 2014 incision and drainage breast abscess - 04/12 and 08/13 surgical preparation left breast with mastotomy, and incision and drainage and excisional debridement recurrent left breast infection ulcer with 3 cm partial secondary wound closure - 11/21/15 excisional debridement nonhealing recurrent infected ulcer left breast at medial periareolar area with complex secondary wound closure - 12/28/15 excisional debridement nonhealing recurrent infected ulcer left breast at medial periareolar area with complex secondary wound closure - 04/04/16 mastotomy right breast with incision and drainage abscess and excision with partial mastectomy - 06/07/16 Bilateral breast reduction mammaplasty with bilateral free nipple graft reconstruction - 10/01/16 Surgical preparation revision right breast reconstruction with excisional debridement nonhealing surgical wounds lateral aspect and medial aspect with secondary wound closure and excisional debridement compromised graft ulceration nipple area and nonhealing surgical wound Tzone area with FTSG from right lateral breast (25 cm2) - 11/21/16 Surgical preparation right breast with incison and drainage and excisional debridement nonhealing infected nipple graft ulcer (63 cm2) - 01/10/17 Excisional debridement recurrent nonhealing infected MRSA ulcer right breast and compromised skin graft right nipple with completion mastectomy - 04/18/17 Incision and drainage right mastectomy MRSA wound infection - 05/02/17 MEDICATIONS: Pamelor. MVI. Synthroid. Vitamin B12. Celexa. Vitamin D3. Wellbutrin. Vitamin E. Iron supplements. B Complex with Vitamin C. ALLERGIES: Codeine. Penicillin. NSAID's. FAMILY HISTORY: Father (biol.) - Has Family History of Hypertension PGM - Has Family History of Diabetes PGM - Has Family History of Heart Disease Mother (biol.) - Has Family History of Asthma Brother (full) - Has Family History of Asthma Father (biol.) - Has Family History of Depression negative for breast cancer. Heart disease. Thyroid cancer. Parkinson's disease. SOCIAL HISTORY: Patient was smoking up to 09/30-1ppd x 20 years. She has recently quit. Alcohol Use - no Drug Use - no Regular Exercise - no single, but live with partner for 12 years, have two children together, one son, one girl age 11 and 9, son has Asberger patient does not use aspirin. patient does not use ibuprofen. REVIEW OF SYSTEMS: General - Denies fever, fatigue and weakness. Had 150 lb weight loss after gastric bypass in 2009. Eyes - Denies eye pain. ENT - Denies nasal congestion and sore throat. Had thyroidectomy. Had tonsillectomy. CV - Denies chest pain or discomfort, fatigue, lightheadedness and shortness of breath with exertion. Resp - Denies cough and shortness of breath. Patient is a former smoker. GI - Denies nausea, vomiting, diarrhea and constipation. Gastric bypass due to severe obesity 158lbs loss. - Denies blood in urine and urinary frequency. Had hysterectomy MS - Complains of back pain. Denies joint pain, stiffness, muscle weakness and arthritis. Derm - Denies suspicious lesions and skin cancer. Neuro - Denies headaches and numbness. Psych - Complains of anxiety and depression. Endo - Denies excessive urination and excessive thirst. Has had recurrent breast infections. Heme - Denies bleeding and abnormal bruising. PHYSICAL EXAMINATION: General: well developed, well nourished, in no acute distress. Bra size was 42 D prior to the breast reduction. Head: normocephalic and atraumatic. Eyes: PERRL/EOM intact, conjunctiva and sclera clear. Neck: no masses, thyromegaly, or abnormal cervical nodes. Breasts: Left breast is well healed with vertical and horizontal incisions. Good shape and contour left breast. Right breast mastectomy incision healed. No clinical evidence of infection. Lungs: clear bilaterally to auscultation. Heart: regular rate and rhythm. Msk: no bony tenderness. Pulses: pulses normal in all 4 extremities. Extremities: no clubbing, cyanosis, edema, or deformity noted with normal full range of motion of all joints. Neurologic: cranial nerves II-XII grossly intact. Skin: no rashes. Cervical Nodes: no significant adenopathy. Axillary Nodes: no significant adenopathy. Psych: alert and cooperative; normal mood and affect; normal attention span and concentration. Assessment and Plan 1. Recurrent infections bilateral breasts. 2. Bilateral macromastia s/p breast reduction mammaplasty. 3. s/p completion mastectomy right breast. 4. Acquired absence right breast. 4. Disproportion reconstructed breasts. 5. Former smoker. 6. MRSA. Her recent MRSA ulcer right breast remains healed. She comes in today for continued discussion of her breast reconstruction options. She is interested in a saline tissue bond runner followed by replacement cohesive gel implant. Autogenous reconstruction with the TRAM flap was discussed. The quantity is there for reconstruction of the breast. However, the quality is suboptimal which can be seen in patients with gastric bypass surgery. There is looseness between the skin and subcutaneous tissue which increases risk of wound healing problems because the perforators to the skin are not ideal. To improve the perforators to the skin, a delay procedure could be performed or she could be evaluated at a tertiary center for microvascular free tissue transfer breast reconstruction. She is interested in staying local. She is looking for the reconstruction that has a quicker recovery since she would like to go back to work in a timely fashion. So she has decided on proceeding with placement of a saline tissue bond runner at this time. She understands that with her history of recurrent infections, the foreign body implant may become infected. Hopefully by proceeding with the completion mastectomy, the recurrent infections should be resolved. However if recurrent infections persist and the foreign body implant is removed, she will then consider autogenous breast reconstruction options at that time. She continues to show good healing mastectomy scar right breast with no further evidence of infection, and I told the patient that I will proceed with the saline tissue bond runner next month because of her recent MRSA infection. Her MRSA ulcer right breast had healed in August. Ideally I would like to wait 6 months to allow the swelling to subside and to make sure recurrent infections don't develop. Since she is anxious to get back into the work force, I told her I can consider the surgery in 3 months instead. Since the mastectomy scar is stable with no evidence of further infection, I will proceed next month. Patient was in agreement. Surgery will be done under general anesthesia with a surgical observation overnight stay in the hospital. Because of her history of MRSA, I will culture the wound at the time of surgery. I will treat with Vancomycin and will place a PICC line for extended antibiotic usage because of her extensive history of breast infections. After surgery, if there is compromise with healing of the breast flaps, she can continue her HBO treatments. The patient was informed of the risks and complications of the procedure including alternatives to surgery. These were discussed with the patient personally. The patient voices understanding and wishes to proceed. Some of the risks and complications were included in a form from the [employer] [employer]. Will check a Prealbumin preoperatively. If it is quite low, I would consider postponing the surgery for an additional 1-2 months until her nutrition is maximized. Followup after her surgery. Assessment AND Plan Problems 1. Abscess of right breast N61.1 2. 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 History of MRSA infection Z86.14 4. Former smoker Z87.891 5. Disproportion of reconstructed breast N65.1 Coding Level of Care Code Off vis,est,level 4 Diagnoses Abscess of right breast N61.1 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 History of MRSA infection Z86.14 Former smoker Z87.891 Disproportion of reconstructed breast N65.1 12/08/17 1037 <Electronically signed by Sean Stevenson MD> Date Sean Stevenson MD Cosigner Signature: Date (if applicable) CC: Eduardo Rubio DO PLASTIC SURGERY Observed: 11/11/2017 Status: F Source: [place]ER[place] VISIT REPORT 8:10 AM [facility] REPOSITORY [facility] [address] [place] [address] OFFICE VISIT Date of Service: 10/08/17 MR#: [id number] Acct: [id number] Name: ROBLES CARRASQUILLO Rep #: [id number] : 1970 Provider: Sean Stevenson MD Age/Sex: 47/F Location: [facility] Status: Signed Intake Vital Signs10/08/17 Height 5 ft 6 in 10/08/17 Weight: 263 lb 4 oz Intake Visit Reasons: evaluation breast reconstruction Alining Inspector Required: No Accompanied by: None Is patient in pain?: No Allergies codeine Allergy (Verified 10/08/17 09:04) Rash Penicillins Allergy (Verified 10/08/17 09:04) Rash NSAIDS (Non-Steroidal Anti-Inflamma Adverse Reaction (Verified 10/08/17 09:04) Other Medications Levothyroxine [Synthroid] 175 mcg PO DAILY 03/19/14 [History Confirmed 10/08/17] Citalopram [Celexa] 40 mg PO DAILY 11/07/14 [History Confirmed 10/08/17] Calcium Carbonate/Vitamin D3 [Calcium 600-Vit D3 400 Caplet] 1 ea PO BID 08/15/15 [History Confirmed 10/08/17] Cholecalciferol (VIT D3) [Vitamin D3] 2,000 unit PO DAILY 08/15/15 [History Confirmed 10/08/17] Multivitamins,Ther W-Minerals [Multivitamin With Minerals] 1 tab PO DAILY 08/15/15 [History Confirmed 10/08/17] Vitamin B Complex Vit C No.3 [B Complex with Vitamin C] 1 ea PO DAILY 08/15/15 [History Confirmed 10/08/17] Vitamin E 400 unit PO DAILY 08/15/15 [History Confirmed 10/08/17] Nortriptyline HCl [Pamelor] 50 mg PO QHS 04/03/16 [History Confirmed 10/08/17] BuPROPion (XL) [Wellbutrin Xl] 300 mg PO DAILY 04/18/17 [History Confirmed 10/08/17] Iron Polysaccharide Complex [Ferrex 150] 150 mg PO BID 05/01/17 [History Confirmed 10/08/17] Acetaminophen [Tylenol Extra Strength] 1,000 mg PO Q8H PRN #1 tab 05/06/17 [Rx Confirmed 10/08/17] Diazepam [Valium] 5 mg PO 4X/DAY PRN PRN #30 tab 05/06/17 [Rx Confirmed 10/08/17] Nutritional Supplement [Butch - ORANGE FLAVOR] 1 packet PO BIDCM #60 packet 05/06/17 [Rx Confirmed 10/08/17] ProMETHAzine [Phenergan] 25 mg PO BID PRN 06/20/17 [History Confirmed 10/08/17] HydromorphONE [Dilaudid] 2 mg PO 4X/DAY PRN PRN #40 07/03/17 [Rx Confirmed 10/08/17] Is last menstrual period known: No Post menopausal: No Patient : No PFSH Medical History BREAST LUMP/CYST (Acute) COMPROMISED BILATERAL BREAST REDUCTION NIPPLE GRAFTS (Acute) Graves disease (Acute) Hypertriglyceridemia (Acute) MRSA (methicillin resistant staph aureus) culture positive (Acute) Metabolic syndrome (Acute) NONHEALING SURGICAL WOUND RIGHT BREAST (Acute) NONHEALING ULCER LEFT BREAST AT VERTICAL INCISION (Acute) Obesity (Acute) Ovarian cyst (Acute) RECURRENT INFECTED ULCER LEFT BREAST (Acute) RECURRENT NONHEALING INFECTED MRSA ULCER RIGHT BREAST (Acute) Seasonal allergies (Acute) Surgical History BILATERAL BREAST REDUCTION MAMMAPLASTY (Acute) COMPLETE THYROIDECTOMY DUE TO GRAVES' DISEASE (Acute 11/2001) Delivered by section (Acute) EXCISIONAL DEBRIDEMENT RECURRENT NONHEALING INFECTED MRSA (Acute) EXCISIONL DEBRIDEMENT NONHEALING RECURRENT INFECTED ULCER (Acute) Gastric bypass status for obesity (Acute) HERNIA REPAIR WITH MESH (Acute 2014) History of bilateral ligation of fallopian tubes (Acute 2000) History of incisional hernia repair (Acute 07/03/10) History of tonsillectomy (Acute 12/2003) INCISION AND DRAINAGE BREAST ABSCESS (Acute) MASTOTOMY RIGHT BREAST (Acute) PANICULECTOMY (Acute 04/2013) S/P complete hysterectomy (Acute) SURGICAL PREPARATION AND REVISION BREAST RECONSTRUCTION (Acute) SURGICAL PREPARATION LEFT BREAST WITH MASTECTOMY (Acute) SURGICAL PREPARATION RIGHT BREAST (Acute) Family History Father , FROM MRSA AT AGE 50 Hypertension Hyperlipidemia Acute depression Diabetes Mother Asthma Grandmother Diabetes Heart disease Grandmother Hypertension Diabetes Grandfather Parkinson disease Brother Asthma Aunt Thyroid cancer Uncle Thyroid cancer Social History household members: significant other, children number of children: 2 current occupational status: unemployed Smoking Status: Former smoker second hand exposure: No alcohol intake: current details: BEER seatbelt use: always do you feel safe at home: Yes additional social history: SUN EXPOSURE: OCCASIONALLY HPI evaluation breast reconstruction: Details: 47 year old woman comes in today for further evaluation breast reconstruction after undergoing completion mastectomy right breast in 04/14. She has a history of recurrent breast infections bilaterally. Most recently she had developed MRSA in the right breast. She has had multiple operative drainage procedures both before and after her bilateral breast reduction mammaplasty in 10/15. She denies fever. Has some persistent scar pain in the right mastectomy incision area. She denies any trauma. 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 Incisional hernia repair 07/03/10 panniculectomy 04/2013 hernia repair with mesh - 2014 incision and drainage breast abscess - 04/12 and 08/13 surgical preparation left breast with mastotomy, and incision and drainage and excisional debridement recurrent left breast infection ulcer with 3 cm partial secondary wound closure - 11/21/15 excisional debridement nonhealing recurrent infected ulcer left breast at medial periareolar area with complex secondary wound closure - 12/28/15 excisional debridement nonhealing recurrent infected ulcer left breast at medial periareolar area with complex secondary wound closure - 04/04/16 mastotomy right breast with incision and drainage abscess and excision with partial mastectomy - 06/07/16 Bilateral breast reduction mammaplasty with bilateral free nipple graft reconstruction - 10/01/16 Surgical preparation revision right breast reconstruction with excisional debridement nonhealing surgical wounds lateral aspect and medial aspect with secondary wound closure and excisional debridement compromised graft ulceration nipple area and nonhealing surgical wound Tzone area with FTSG from right lateral breast (25 cm2) - 11/21/16 Surgical preparation right breast with incison and drainage and excisional debridement nonhealing infected nipple graft ulcer (63 cm2) - 01/10/17 Excisional debridement recurrent nonhealing infected MRSA ulcer right breast and compromised skin graft right nipple with completion mastectomy - 04/18/17 Incision and drainage right mastectomy MRSA wound infection - 05/02/17 MEDICATIONS: Pamelor. MVI. Synthroid. Vitamin B12. Celexa. Vitamin D3. Wellbutrin. Vitamin E. Iron supplements. B Complex with Vitamin C. ALLERGIES: Codeine. Penicillin. NSAID's. FAMILY HISTORY: Father (biol.) - Has Family History of Hypertension PGM - Has Family History of Diabetes PGM - Has Family History of Heart Disease Mother (sushant.) - Has Family History of Asthma Brother (full) - Has Family History of Asthma Father (sushant.) - Has Family History of Depression negative for breast cancer. Heart disease. Thyroid cancer. Parkinson's disease. SOCIAL HISTORY: Patient was smoking up to 1/2-1ppd x 20 years. She has recently quit. Alcohol Use - no Drug Use - no Regular Exercise - no single, but live with partner for 12 years, have two children together, one son, one girl age 11 and 9, son has Asberger patient does not use aspirin. patient does not use ibuprofen. REVIEW OF SYSTEMS: General - Denies fever, fatigue and weakness. Had 150 lb weight loss after gastric bypass in 2009. Eyes - Denies eye pain. ENT - Denies nasal congestion and sore throat. Had thyroidectomy. Had tonsillectomy. CV - Denies chest pain or discomfort, fatigue, lightheadedness and shortness of breath with exertion. Resp - Denies cough and shortness of breath. Patient is a former smoker. GI - Denies nausea, vomiting, diarrhea and constipation. Gastric bypass due to severe obesity 158lbs loss. - Denies blood in urine and urinary frequency. Had hysterectomy MS - Complains of back pain. Denies joint pain, stiffness, muscle weakness and arthritis. Derm - Denies suspicious lesions and skin cancer. Neuro - Denies headaches and numbness. Psych - Complains of anxiety and depression. Endo - Denies excessive urination and excessive thirst. Has had recurrent breast infections. Heme - Denies bleeding and abnormal bruising. PHYSICAL EXAMINATION: General: well developed, well nourished, in no acute distress. Bra size was 42 D prior to the breast reduction. Head: normocephalic and atraumatic. Eyes: PERRL/EOM intact, conjunctiva and sclera clear. Neck: no masses, thyromegaly, or abnormal cervical nodes. Breasts: Left breast is well healed with vertical and horizontal incisions. Good shape and contour left breast. Right breast mastectomy incision healed. No clinical evidence of infection. Lungs: clear bilaterally to auscultation. Heart: regular rate and rhythm. Msk: no bony tenderness. Pulses: pulses normal in all 4 extremities. Extremities: no clubbing, cyanosis, edema, or deformity noted with normal full range of motion of all joints. Neurologic: cranial nerves II-XII grossly intact. Skin: no rashes. Cervical Nodes: no significant adenopathy. Axillary Nodes: no significant adenopathy. Psych: alert and cooperative; normal mood and affect; normal attention span and concentration. Assessment and Plan 1. Recurrent infections bilateral breasts. 2. Bilateral macromastia s/p breast reduction mammaplasty. 3. s/p completion mastectomy right breast. 4. Acquired absence right breast. 4. Disproportion reconstructed breasts. 5. Former smoker. 6. MRSA. Her recent MRSA ulcer right breast remains healed. She comes in today to discuss her breast reconstruction options. She is interested in a saline tissue bond runner followed by replacement cohesive gel implant. Autogenous reconstruction with the TRAM flap was discussed. The quantity is there for reconstruction of the breast. However, the quality is suboptimal which can be seen in patients with gastric bypass surgery. There is looseness between the skin and subcutaneous tissue which increases risk of wound healing problems because the perforators to the skin are not ideal. To improve the perforators to the skin, a delay procedure could be performed or she could be evaluated at a tertiary center for microvascular free tissue transfer breast reconstruction. She is interested in staying local. She is looking for the reconstruction that has a quicker recovery since she would like to go back to work in a timely fashion. So she has decided on proceeding with placement of a saline tissue bond runner at this time. She understands that with her history of recurrent infections, the foreign body implant may become infected. Hopefully by proceeding with the completion mastectomy, the recurrent infections should be resolved. However if recurrent infections persist and the foreign body implant is removed, she will then consider autogenous breast reconstruction options at that time. I told the patient that I would consider proceeding with the saline tissue bond runner in a couple of months because of her recent MRSA infection. Her MRSA ulcer right breast had healed last month. Ideally I would like to wait 6 months to allow the swelling to subside and to make sure recurrent infections don't develop. Since she is anxious to get back into the work force, I would consider the surgery in 3 months. When I schedule the surgery, I will re-evaluate the right breast mastectomy scar and decide at that time to continue with the surgery or postpone it for an additional 3 months. Surgery will be done under general anesthesia with a surgical observation overnight stay in the hospital. Because of her history of MRSA, I will culture the wound at the time of surgery. I will treat with Vancomycin and may consider placing a PICC line for extended antibiotic usage. After surgery, if there is compromise with healing of the breast flaps, she can continue her HBO treatments. The patient was informed of the risks and complications of the procedure including alternatives to surgery. These were discussed with the patient personally. The patient voices understanding and wishes to proceed with the current plan of waiting until more healing has occurred before proceeding with her breast reconstruction. Followup one month. Assessment AND Plan 1. Abscess of right breast N61.1 2. 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 History of MRSA infection Z86.14 4. Former smoker Z87.891 5. Disproportion of reconstructed breast N65.1 Coding Level of Care Code Off vis,est,level 4 Diagnoses Abscess of right breast N61.1 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 History of MRSA infection Z86.14 Former smoker Z87.891 Disproportion of reconstructed breast N65.1 11/11/17 0810 <Electronically signed by Sean Stevenson MD> Date Sean Stevenson MD Cosigner Signature: Date (if applicable) CC: Eduardo Perkins DO PROGRESS Observed: 10/21/2017 Status: COMPLETED Source: [place] 10:46 AM [facility] REPOSIT[facility] O ID: [id number] Author: Eduardo Perkins Service: (none) Author Type: Physician Type: Progress Notes Filed: 10/21/2017 10:53 AM Note Text: CC: Robles Carrasquillo is a 47 year old female who presents to the office for follow up HPI: Seen in office 1 month ago Depression, worsening over the last 2 months, was seen by Rhona and dose of Celexa increased to 40 mg a day, taking Wellbutrin 450 mg a day and also taking Nortriptyline. Struggling with depressed mood, intermittent anxiety and agitation and irritability, revolving stressors of her breast reduction surgical complications and dehiscence complications of her nipple repair and subsequent sepsis and wound vac. Likely to need breast implant/reconstructive surgery after mastectomy of right breast due to non healing, no SI or HI. 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 Currently She is taking the Prozac, which was started in place of Celexa at last OFFICE VISIT, she is tolerating it well, is taking it at bedtime, sometimes with insomnia despite use of Melatonin supplement. No SI or HI. Good support from her children. Mccall seen Dr. Stevenson who would like to wait for breast bond runner and implant placement of her right breast until her mood is better. Hypothyroidism, taking 175 mcg once a day 6 days a week and 2 tablets 1 day a week after recently labs showed TSH elevated. Still struggling with difficulty with remembering appointments and putting things places then forgetting where they were set down. Started after this past year with sepsis and 7-8 surgeries after infected breast reduction surgery. ? PAST MEDICAL HISTORY Diagnosis Date - Excessive or frequent menstruation lots of clots - Irregular menstrual cycle occurs too frequently - Left breast abscess - Left breast mass - Left inguinal hernia 11/08/14 - Morbid obesity (HCC) s/p Bruce n Y - PMH - PAST MEDICAL HISTORY OF DUB - Toxic diffuse goiter without mention of thyrotoxic crisis or storm 2001 Grave's disease radioactive iodine PAST SURGICAL HISTORY Procedure Laterality Date - ANESTH, SECTION x2 - BX OF BREAST; INCISIONAL Left 04/14/2015 - EXPLO/DRAIN BREAST ABSCESS Left 08/16/15 - GASTRIC BYPASS HX 2009 off HTN and HPL meds - HERNIA REPAIR W/MESH 11/08/14 lap LIH - LIGATE FALLOPIAN TUBE 2000 - PANNICULECTOMY 2012 Dr. Kent (Plastic surgery) - PAST SURGICAL HISTORY OF 11/04 uterine ablation - PAST SURGICAL HISTORY OF 2009 abd hernia repair - PAST SURGICAL HISTORY OF Bilateral 10/01/2016 breast reduction mamoplasty /c b/l free nipple graft reconstruction - REMOVAL OF TONSILS,<12 Y/O Tonsillectomy Current Outpatient Prescriptions: zolpidem (AMBIEN) 10 mg tab take 1 tablet by mouth at bedtime Cholecalciferol, Vitamin D3, 2,000 unit cap Take 1 capsule by mouth once daily. FLUoxetine HCl (PROZAC) 40 mg capsule Take 1 capsule by mouth once daily. buPROPion XL (WELLBUTRIN XL) 300 mg 24 hr tablet take 1 tablet by mouth once daily promethazine (PHENERGAN) 25 mg tablet take 1 tablet by mouth every 6 hours if needed nausea and vomiting FERREX 150 150 mg iron capsule take 1 capsule by mouth twice a day nortriptyline (PAMELOR) 50 mg capsule take 1 capsule by mouth at bedtime buPROPion XL (WELLBUTRIN XL) 150 mg 24 hr tablet Take 1 tablet by mouth once daily. Total of 450 mg daily. levothyroxine (SYNTHROID) 175 mcg tablet take 1 tablet by mouth once daily BEFORE BREAKFAST CALCIUM CARBONATE/VITAMIN D3 (CALCIUM 500 + D, D3, ORAL) Take by mouth three times daily. Cholecalciferol, Vitamin D3, (VITAMIN D) 1,000 unit cap Take 1,000 Units by mouth once daily. vitamin b complex (VITAMIN B COMPLEX) Tab Take 1 tablet by mouth once daily. biotin Tab Take 2,500 mcg by mouth once daily. THERAPEUTIC MULTIVITAMIN TAB Take one(1) tablet daily. Magnesium 250 mg tab Take 1 tablet by mouth daily at bedtime. HYDROmorphone (HYDROMORPHONE) 2 mg tablet Take 1-2 tablets 4 times daily as needed. PER DR. STEVENSON diazePAM (VALIUM) 5 mg tablet Take 1 tablet by mouth twice daily as needed. PER DR. STEVENSON COMPOUNDED PRESCRIPTION Obtain STAT CBC with diff, TIBC/iron , Ferritin, type and cross matchDx anemia COMPOUNDED PRESCRIPTION Obtain TSH, T4 and T4Dx: Hypothyroidism oxyCODONE-acetaminophen (PERCOCET) 5-325 mg tablet Take 1 tablet by mouth every 6 hours as needed for Pain. No current facility-administered medications for this visit. 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 Uvula midline. Neck: No LAD, no thyromegaly, no meningismus. CV: RRR, no murmur Lungs: CTA b/l, no wheezing Skin: No rashes, lesions, or wounds on exposed skin. ASSESSMENT/PLAN: 1. Recurrent major depression in partial remission (HCC) - ICD9: 296.35, ICD10: F33.41 (primary diagnosis) - can consider increased bid dosing of Prozac if needed, would recommend change Prozac to am since having some insomnia, add on magnesium to melatonin, f/u in office in 1-2 months 2. Primary insomnia - ICD9: 307.42, ICD10: F51.01 - see above - MAGNESIUM 250 MG TABLET 3. Acquired hypothyroidism - ICD9: 244.9, ICD10: E03.9 - Instructed patient on importance of taking on an empty stomach either first thing in the morning or at bedtime. - check TSH in 3 weeks - TSH BLD - T4 FREE/FREE THYROX - T3 BLD 4. Morbid obesity (HCC) - ICD9: 278.01, ICD10: E66.01 - Lengthy discussion in office today regarding diet and exercise. Discussed use of small plate to eat meals from, drink 1 glass of water 10-15 minutes prior to eating meal, drink 8 glasses of water daily, eat fresh fruit and vegetable during meal first then lean protein such as grilled/baked chicken breast or fish, limit carbohydrate intake (less pasta, breads, rice and snack foods) as well as limiting sugars (desserts etc). Important to count / track your calories and exercise as well. Eduardo Perkins DO Return if no improvement. Follow up with Eduardo Perkins DO. Discussed risks, benefits, alternatives, and potential side effects of medications. Patient/Guardian expressed understanding and agreed with the plan. See patient instructions. Eduardo Perkins DO [address] [place] [address] CNOV Observed: 10/21/2017 Status: COMPLETED Source: [place] 9:40 AM [facility] REPOSITORY Office Visit (FAMPWS) JASMINLUIS EDUARDOROBLES Hyde ([id number]) 1970 F Date Time Provider Department 10/21/17 9:40 AM [facility] PERKINS [facility] During your visit today, we recorded the following information about you: Temperature Pulse Respiration Blood pressure 96.7 degrees 80/minute 20/minute 130/80 Weight 119.7 kg Eduardo Perkins DO 10/21/2017 10:53 AM Signed CC: Robles Carrasquillo is a 47 year old female who presents to the office for follow up HPI: Seen in office 1 month ago Depression, worsening over the last 2 months, was seen by Rhona and dose of Celexa increased to 40 mg a day, taking Wellbutrin 450 mg a day and also taking Nortriptyline. Struggling with depressed mood, intermittent anxiety and agitation and irritability, revolving stressors of her breast reduction surgical complications and dehiscence complications of her nipple repair and subsequent sepsis and wound vac. Likely to need breast implant/reconstructive surgery after mastectomy of right breast due to non healing, no SI or HI. 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 Currently She is taking the Prozac, which was started in place of Celexa at last OFFICE VISIT, she is tolerating it well, is taking it at bedtime, sometimes with insomnia despite use of Melatonin supplement. No SI or HI. Good support from her children. Mccall seen Dr. Stevenson who would like to wait for breast bond runner and implant placement of her right breast until her mood is better. Hypothyroidism, taking 175 mcg once a day 6 days a week and 2 tablets 1 day a week after recently labs showed TSH elevated. Still struggling with difficulty with remembering appointments and putting things places then forgetting where they were set down. Started after this past year with sepsis and 7-8 surgeries after infected breast reduction surgery. ? PAST MEDICAL HISTORY Diagnosis Date - Excessive or frequent menstruation lots of clots - Irregular menstrual cycle occurs too frequently - Left breast abscess - Left breast mass - Left inguinal hernia 11/08/14 - Morbid obesity (HCC) s/p Bruce n Y - PMH - PAST MEDICAL HISTORY OF DUB - Toxic diffuse goiter without mention of thyrotoxic crisis or storm 2001 Grave's disease radioactive iodine PAST SURGICAL HISTORY Procedure Laterality Date - ANESTH, SECTION x2 - BX OF BREAST; INCISIONAL Left 04/14/2015 - EXPLO/DRAIN BREAST ABSCESS Left 08/16/15 - GASTRIC BYPASS HX 2009 off HTN and HPL meds - HERNIA REPAIR W/MESH 11/08/14 lap LIH - LIGATE FALLOPIAN TUBE 2000 - PANNICULECTOMY 2012 Dr. Kent (Plastic surgery) - PAST SURGICAL HISTORY OF 11/04 uterine ablation - PAST SURGICAL HISTORY OF 2009 abd hernia repair - PAST SURGICAL HISTORY OF Bilateral 10/01/2016 breast reduction mamoplasty /c b/l free nipple graft reconstruction - REMOVAL OF TONSILS,ANDlt;14 Y/O Tonsillectomy Current Outpatient Prescriptions: zolpidem (AMBIEN) 10 mg tab take 1 tablet by mouth at bedtime Cholecalciferol, Vitamin D3, 2,000 unit cap Take 1 capsule by mouth once daily. FLUoxetine HCl (PROZAC) 40 mg capsule Take 1 capsule by mouth once daily. buPROPion XL (WELLBUTRIN XL) 300 mg 24 hr tablet take 1 tablet by mouth once daily promethazine (PHENERGAN) 25 mg tablet take 1 tablet by mouth every 6 hours if needed nausea and vomiting FERREX 150 150 mg iron capsule take 1 capsule by mouth twice a day nortriptyline (PAMELOR) 50 mg capsule take 1 capsule by mouth at bedtime buPROPion XL (WELLBUTRIN XL) 150 mg 24 hr tablet Take 1 tablet by mouth once daily. Total of 450 mg daily. levothyroxine (SYNTHROID) 175 mcg tablet take 1 tablet by mouth once daily BEFORE BREAKFAST CALCIUM CARBONATE/VITAMIN D3 (CALCIUM 500 + D, D3, ORAL) Take by mouth three times daily. Cholecalciferol, Vitamin D3, (VITAMIN D) 1,000 unit cap Take 1,000 Units by mouth once daily. vitamin b complex (VITAMIN B COMPLEX) Tab Take 1 tablet by mouth once daily. biotin Tab Take 2,500 mcg by mouth once daily. THERAPEUTIC MULTIVITAMIN TAB Take one(1) tablet daily. Magnesium 250 mg tab Take 1 tablet by mouth daily at bedtime. HYDROmorphone (HYDROMORPHONE) 2 mg tablet Take 1-2 tablets 4 times daily as needed. PER DR. STEVENSON diazePAM (VALIUM) 5 mg tablet Take 1 tablet by mouth twice daily as needed. PER DR. STEVENSON COMPOUNDED PRESCRIPTION Obtain STAT CBC with diff, TIBC/iron , Ferritin, type and cross matchDx anemia COMPOUNDED PRESCRIPTION Obtain TSH, T4 and T4Dx: Hypothyroidism oxyCODONE-acetaminophen (PERCOCET) 5-325 mg tablet Take 1 tablet by mouth every 6 hours as needed for Pain. No current facility-administered medications for this visit. 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 Uvula midline. Neck: No LAD, no thyromegaly, no meningismus. CV: RRR, no murmur Lungs: CTA b/l, no wheezing Skin: No rashes, lesions, or wounds on exposed skin. ASSESSMENT/PLAN: 1. Recurrent major depression in partial remission (HCC) - ICD9: 296.35, ICD10: F33.41 (primary diagnosis) - can consider increased bid dosing of Prozac if needed, would recommend change Prozac to am since having some insomnia, add on magnesium to melatonin, f/u in office in 1-2 months 2. Primary insomnia - ICD9: 307.42, ICD10: F51.01 - see above - MAGNESIUM 250 MG TABLET 3. Acquired hypothyroidism - ICD9: 244.9, ICD10: E03.9 - Instructed patient on importance of taking on an empty stomach either first thing in the morning or at bedtime. - check TSH in 3 weeks - TSH BLD - T4 FREE/FREE THYROX - T3 BLD 4. Morbid obesity (HCC) - ICD9: 278.01, ICD10: E66.01 - Lengthy discussion in office today regarding diet and exercise. Discussed use of small plate to eat meals from, drink 1 glass of water 10- 15 minutes prior to eating meal, drink 8 glasses of water daily, eat fresh fruit and vegetable during meal first then lean protein such as grilled/baked chicken breast or fish, limit carbohydrate intake (less pasta, breads, rice and snack foods) as well as limiting sugars (desserts etc). Important to count / track your calories and exercise as well. Eduardo Perkins DO Return if no improvement. Follow up with Eduardo Perkins DO. Discussed risks, benefits, alternatives, and potential side effects of medications. Patient/Guardian expressed understanding and agreed with the plan. See patient instructions. Eduardo Perkins DO [address] [place] [address] Referring Provider: SELF [[id number]] Allergies As of Date: 10/21/2017 Noted Allergy Reaction ALEVE (NAPROXEN SODIUM) 07/18/2006 8 - GI Upset CODEINE 07/18/2006 2 - Rash 8 - GI Upset PENICILLINS 07/18/2006 4 - Hives Date Reviewed: 10/21/2017 Reviewed by: Sánchez Parnell LPN - Fully Assessed Reason for Visit: Follow Up [171] Cmt: 3 months Primary Visit Diagnosis:Recurrent major depression in partial remission (HCC) [F33.41] Other Visit Diagnoses:Primary insomnia [F51.01] Acquired hypothyroidism [E03.9] Morbid obesity (HCC) [E66.01] Order(s):Magnesium 250 mg tabTake 1 tablet by mouth daily at bedtime.Disp: 90 tabletRfl: 3 TSH BLD [SQTSH] Order #: [id number] FUTURE T4 FREE/FREE THYROX [SQFT4] Order #: [id number] FUTURE T3 BLD [SQT3] Order #: [id number] FUTURE Prescriptions as of 10/21/2017 Sig: ZOLPIDEM 10 MG TABLET take 1 tablet by mouth at bed* CHOLECALCIFEROL (VITAMIN D3) * Take 1 capsule by mouth once * FLUOXETINE 40 MG CAPSULE Take 1 capsule by mouth once * BUPROPION XL 300 MG 24 HR TAB take 1 tablet by mouth once d* PROMETHAZINE 25 MG TABLET take 1 tablet by mouth every * FERREX 150 MG IRON CAPSULE take 1 capsule by mouth twice* NORTRIPTYLINE 50 MG CAPSULE take 1 capsule by mouth at be* BUPROPION XL 150 MG TAB Take 1 tablet by mouth once d* LEVOTHYROXINE 175 MCG TABLET take 1 tablet by mouth once d* CALCIUM 500 + D (D3) ORAL Take by mouth three times da* CHOLECALCIFEROL (VITAMIN D3) * Take 1,000 Units by mouth onc* VITAMIN B COMPLEX TABLET Take 1 tablet by mouth once d* BIOTIN 2,500 MCG TABLET Take 2,500 mcg by mouth once * THERAPEUTIC MULTIVITAMIN TABL* Take one(1) tablet daily. MAGNESIUM 250 MG TABLET Take 1 tablet by mouth daily * HYDROMORPHONE 2 MG TABLET Take 1-2 tablets 4 times javon* DIAZEPAM 5 MG TABLET Take 1 tablet by mouth twice * COMPOUNDED PRESCRIPTION Obtain STAT CBC with diff, TI* COMPOUNDED PRESCRIPTION Obtain TSH, T4 and T4 Dx: Hy* OXYCODONE-ACETAMINOPHEN 5 MG-* Take 1 tablet by mouth every * Problem List As Of Date 10/21/2017 Noted Resolved METRORRHAGIA [N92.1] INVALID FOR* OVARIAN CYST NEC/NOS [N83.209] INVALID FOR* IRREGULAR MENSTRUATION [N92.6] INVALID FOR* Recurrent major depression in partial remission*INVALID FOR* HYPOTHYROIDISM NOS [E03.9] INVALID FOR*02/27/2007 Acquired hypothyroidism [E03.9] INVALID FOR* MORBID OBESITY [E66.01] INVALID FOR* Abdominal pannus [E65] INVALID FOR* Breast abscess [N61.1] INVALID FOR* Prescriptions ordered this encounter Disp Refills Start End MAGNESIUM 250 MG TABLET 90 t* 3 10/21/2017 Route: ORAL Sig: Take 1 tablet by mouth daily at bedtime. Encounter Status:Closed by EDUARDO PERKINS DO on 10/21/17 OBSOLETE Observed: 10/13/2017 Status: COMPLETED Source: [place] 12:00 AM [facility] REPOS[facility] ROBLES CARRASQUILLO ([id number]) 1970 F Date Time Provider Department 10/13/17 EDUARDO PERKINS During your visit today, we recorded the following information about you: Louise Thibodeaux LPN 10/13/2017 4:25 PM Signed Last seen 09-16-17. Check [facility] Call RX Patient has been identified by name and date of : Yes Pending Prescriptions Disp Refills ZOLPIDEM 10 MG TABLET 30 tablet 0 Sig: take 1 tablet by mouth at bedtime KHANH Class: C-IV RODNEY: Yes RX INSTRUCTIONS: Pharmacy initiated this request. No need to notify patient. Loiuse Perkins DO 10/14/2017 7:35 AM Signed [email or web address] website checked and validated. All prescriptions have been APPROPRIATELY filled. No suspicious activity was identified.- 10/14/2017 by DO Sánchez Bradford LPN 10/14/2017 8:47 AM Signed Rx faxed to [facility]. Sánchez Parnell LPN Allergies As of Date: 10/13/2017 Noted Allergy Reaction ALEVE (NAPROXEN SODIUM) 07/18/2006 8 - GI Upset CODEINE 07/18/2006 2 - Rash 8 - GI Upset PENICILLINS 07/18/2006 4 - Hives Date Reviewed: 07/24/2017 Reviewed by: Lloyd Gibbs LPN - Fully Assessed Reason for Visit: Refill Request [94] Primary Visit Diagnosis:Situational insomnia [F51.09] Order(s):zolpidem (AMBIEN) 10 mg tabtake 1 tablet by mouth at bedtimeDisp: 30 tabletRfl: 1 Prescriptions as of 10/13/2017 Sig: ZOLPIDEM 10 MG TABLET take 1 tablet by mouth at bed* CHOLECALCIFEROL (VITAMIN D3) * Take 1 capsule by mouth once * FLUOXETINE 40 MG CAPSULE Take 1 capsule by mouth once * BUPROPION XL 300 MG 24 HR TAB take 1 tablet by mouth once d* PROMETHAZINE 25 MG TABLET take 1 tablet by mouth every * FERREX 150 MG IRON CAPSULE take 1 capsule by mouth twice* NORTRIPTYLINE 50 MG CAPSULE take 1 capsule by mouth at be* BUPROPION XL 150 MG TAB Take 1 tablet by mouth once d* LEVOTHYROXINE 175 MCG TABLET take 1 tablet by mouth once d* HYDROMORPHONE 2 MG TABLET Take 1-2 tablets 4 times javon* DIAZEPAM 5 MG TABLET Take 1 tablet by mouth twice * COMPOUNDED PRESCRIPTION Obtain STAT CBC with diff, TI* COMPOUNDED PRESCRIPTION Obtain TSH, T4 and T4 Dx: Hy* OXYCODONE-ACETAMINOPHEN 5 MG-* Take 1 tablet by mouth every * CALCIUM 500 + D (D3) ORAL Take by mouth three times da* CHOLECALCIFEROL (VITAMIN D3) * Take 1,000 Units by mouth onc* VITAMIN B COMPLEX TABLET Take 1 tablet by mouth once d* BIOTIN 2,500 MCG TABLET Take 2,500 mcg by mouth once * THERAPEUTIC MULTIVITAMIN TABL* Take one(1) tablet daily. Problem List As Of Date 10/13/2017 Noted Resolved METRORRHAGIA [N92.1] INVALID FOR* OVARIAN CYST NEC/NOS [N83.209] INVALID FOR* IRREGULAR MENSTRUATION [N92.6] INVALID FOR* Recurrent major depression in partial remission*INVALID FOR* HYPOTHYROIDISM NOS [E03.9] INVALID FOR*02/27/2007 Acquired hypothyroidism [E03.9] INVALID FOR* MORBID OBESITY [E66.01] INVALID FOR* Abdominal pannus [E65] INVALID FOR* Breast abscess [N61.1] INVALID FOR* Prescriptions ordered this encounter Disp Refills Start End ZOLPIDEM 10 MG TABLET 30 t* 1 10/14/2017 11/13/2017 Class: Print RX Sig: take 1 tablet by mouth at bedtime Medications Discontinued During This Encounter zolpidem (AMBIEN) 10 mg tab 30 t* 0 09/16/2017 10/14/2017 Class: Print RX Sig: take 1 tablet by mouth at bedtime Disc: Reason for discontinue is not on file. Encounter Status:Closed by SÁNCHEZ PARNELL LPN on 10/14/17 JUNETOUTREAWESLEY Observed: 10/07/2017 Status: COMPLETED Source: [place] 12:00 AM [facility] REPOSITORY Patient Outreach (FAMPST) ROBLES CARRASQUILLO ([id number]) 1970 F Date Time Provider Department 10/07/17 EDUARDO PERKINS FAMPST During your visit today, we recorded the following information about you: Allergies As of Date: 10/07/2017 Noted Allergy Reaction ALEVE (NAPROXEN SODIUM) 07/18/2006 8 - GI Upset CODEINE 07/18/2006 2 - Rash 8 - GI Upset PENICILLINS 07/18/2006 4 - Hives Date Reviewed: 07/24/2017 Reviewed by: Lloyd Gibbs LPN - Fully Assessed Visit Diagnosis:Medication management [Z79.899] Order(s):HGB A1C [DCOXS1M] Order #: [id number] FUTURE Prescriptions as of 10/07/2017 Sig: CHOLECALCIFEROL (VITAMIN D3) * Take 1 capsule by mouth once * FLUOXETINE 40 MG CAPSULE Take 1 capsule by mouth once * X ZOLPIDEM 10 MG TABLET take 1 tablet by mouth at bed* BUPROPION XL 300 MG 24 HR TAB take 1 tablet by mouth once d* PROMETHAZINE 25 MG TABLET take 1 tablet by mouth every * FERREX 150 MG IRON CAPSULE take 1 capsule by mouth twice* NORTRIPTYLINE 50 MG CAPSULE take 1 capsule by mouth at be* BUPROPION XL 150 MG TAB Take 1 tablet by mouth once d* X LEVOTHYROXINE 175 MCG TABLET take 1 tablet by mouth once d* HYDROMORPHONE 2 MG TABLET Take 1-2 tablets 4 times javon* DIAZEPAM 5 MG TABLET Take 1 tablet by mouth twice * COMPOUNDED PRESCRIPTION Obtain STAT CBC with diff, TI* COMPOUNDED PRESCRIPTION Obtain TSH, T4 and T4 Dx: Hy* OXYCODONE-ACETAMINOPHEN 5 MG-* Take 1 tablet by mouth every * CALCIUM 500 + D (D3) ORAL Take by mouth three times da* CHOLECALCIFEROL (VITAMIN D3) * Take 1,000 Units by mouth onc* VITAMIN B COMPLEX TABLET Take 1 tablet by mouth once d* BIOTIN 2,500 MCG TABLET Take 2,500 mcg by mouth once * THERAPEUTIC MULTIVITAMIN TABL* Take one(1) tablet daily. Problem List As Of Date 10/07/2017 Noted Resolved METRORRHAGIA [N92.1] INVALID FOR* OVARIAN CYST NEC/NOS [N83.209] INVALID FOR* IRREGULAR MENSTRUATION [N92.6] INVALID FOR* Recurrent major depression in partial remission*INVALID FOR* HYPOTHYROIDISM NOS [E03.9] INVALID FOR*02/27/2007 Acquired hypothyroidism [E03.9] INVALID FOR* MORBID OBESITY [E66.01] INVALID FOR* Abdominal pannus [E65] INVALID FOR* Breast abscess [N61.1] INVALID FOR* Encounter Status:Closed by NING STRAUSS on 11/16/17 OBSOLETE Observed: 10/03/2017 Status: COMPLETED Source: [place] 12:00 AM [facility] REPOSITORY Refill (FAMPWS) ROBLES CARRASQUILLO ([id number]) 1970 F Date Time Provider Department 10/03/17 PERKINSEDUARDO MORALES MARIEPWS During your visit today, we recorded the following information about you: Eduardo Montiel PerkinsDO 10/03/2017 8:34 AM Signed Please inform patient that her labs show that her vitamin D level is low. She needs to be taking vitamin D3 2,000 -4,000 IU once a day and recheck labs in 2-3 months Also her TSH is elevated. What dose of levothyroxine is she taking? If she is taking 175 mcg once a day she needs to increase dose to 1 tablet (175 mcg) 6 days a week and 2 tablets (350 mcg) 1 day a week and recheck labs in 1-2 months Eduardo Dinesh DO Veronica Perkins LPN 10/03/2017 11:24 AM Signed Pt advised of results, verbalizes understanding. Pt states she is not working at this time and can't afford otc Vit D but her insurance will cover this. Requesting to have script sent to [facility]. Order pended. Pt does confirm that she is taking 175 mcg levothyroxine and verbalizes understanding of new directions on how to take this medication. Call pt only if problem in sending in rx. Veronica Wu LPN Allergies As of Date: 10/03/2017 Noted Allergy Reaction ALEVE (NAPROXEN SODIUM) 07/18/2006 8 - GI Upset CODEINE 07/18/2006 2 - Rash 8 - GI Upset PENICILLINS 07/18/2006 4 - Hives Date Reviewed: 07/24/2017 Reviewed by: Lloyd Gibbs LPN - Fully Assessed Order(s):Cholecalciferol, Vitamin D3, 2,000 unit capTake 1 capsule by mouth once daily.Disp: 90 capsuleRfl: 3 Prescriptions as of 10/03/2017 Sig: CHOLECALCIFEROL (VITAMIN D3) * Take 1 capsule by mouth once * FLUOXETINE 40 MG CAPSULE Take 1 capsule by mouth once * ZOLPIDEM 10 MG TABLET take 1 tablet by mouth at bed* BUPROPION XL 300 MG 24 HR TAB take 1 tablet by mouth once d* PROMETHAZINE 25 MG TABLET take 1 tablet by mouth every * FERREX 150 MG IRON CAPSULE take 1 capsule by mouth twice* NORTRIPTYLINE 50 MG CAPSULE take 1 capsule by mouth at be* BUPROPION XL 150 MG TAB Take 1 tablet by mouth once d* LEVOTHYROXINE 175 MCG TABLET take 1 tablet by mouth once d* HYDROMORPHONE 2 MG TABLET Take 1-2 tablets 4 times javon* DIAZEPAM 5 MG TABLET Take 1 tablet by mouth twice * COMPOUNDED PRESCRIPTION Obtain STAT CBC with diff, TI* COMPOUNDED PRESCRIPTION Obtain TSH, T4 and T4 Dx: Hy* OXYCODONE-ACETAMINOPHEN 5 MG-* Take 1 tablet by mouth every * CALCIUM 500 + D (D3) ORAL Take by mouth three times da* CHOLECALCIFEROL (VITAMIN D3) * Take 1,000 Units by mouth onc* VITAMIN B COMPLEX TABLET Take 1 tablet by mouth once d* BIOTIN 2,500 MCG TABLET Take 2,500 mcg by mouth once * THERAPEUTIC MULTIVITAMIN TABL* Take one(1) tablet daily. Problem List As Of Date 10/03/2017 Noted Resolved METRORRHAGIA [N92.1] INVALID FOR* OVARIAN CYST NEC/NOS [N83.209] INVALID FOR* IRREGULAR MENSTRUATION [N92.6] INVALID FOR* Recurrent major depression in partial remission*INVALID FOR* HYPOTHYROIDISM NOS [E03.9] INVALID FOR*02/27/2007 Acquired hypothyroidism [E03.9] INVALID FOR* MORBID OBESITY [E66.01] INVALID FOR* Abdominal pannus [E65] INVALID FOR* Breast abscess [N61.1] INVALID FOR* Prescriptions ordered this encounter Disp Refills Start End CHOLECALCIFEROL (VITAMIN D3) 2,000 U* 90 c* 3 10/03/2017 Route: ORAL Sig: Take 1 capsule by mouth once daily. Encounter Status:Closed by EDUARDO PERKINS DO on 10/03/17 PROGRESS Observed: 09/26/2017 Status: COMPLETED Source: [place] 4:35 PM [facility] [place] REPOSITORY HNO ID: [id number] Author: Eduardo Perkins Service: (none) Author Type: Physician Type: Progress Notes Filed: 09/26/2017 4:42 PM Note Text: CC: Robles Carrasquillo is a 47 year old female who presents to the office for mood HPI: Depression, worsening over the last 2 months, was seen by Rhona and dose of Celexa increased to 40 mg a day, taking Wellbutrin 450 mg a day and also taking Nortriptyline. Struggling with depressed mood, intermittent anxiety and agitation and irritability, revolving stressors of her breast reduction surgical complications and dehiscence complications of her nipple repair and subsequent sepsis and wound vac. Likely to need breast implant/reconstructive surgery after mastectomy of right breast due to non healing, no SI or HI. Does have good support from mother and step father, Also recently her snf boyfriend of 19 years left her and her kids abruptly. PAST MEDICAL HISTORY Diagnosis Date - Excessive or frequent menstruation lots of clots - Irregular menstrual cycle occurs too frequently - Left breast abscess - Left breast mass - Left inguinal hernia 11/08/14 - Morbid obesity (HCC) s/p Bruce n Y - PMH - PAST MEDICAL HISTORY OF DUB - Toxic diffuse goiter without mention of thyrotoxic crisis or storm 2001 Grave's disease radioactive iodine PAST SURGICAL HISTORY Procedure Laterality Date - ANESTH, SECTION x2 - BX OF BREAST; INCISIONAL Left 04/14/2015 - EXPLO/DRAIN BREAST ABSCESS Left 08/16/15 - GASTRIC BYPASS HX 2009 off HTN and HPL meds - HERNIA REPAIR W/MESH 11/08/14 lap LIH - LIGATE FALLOPIAN TUBE 2000 - PANNICULECTOMY 2012 Dr. Kent (Plastic surgery) - PAST SURGICAL HISTORY OF 11/04 uterine ablation - PAST SURGICAL HISTORY OF 2009 abd hernia repair - PAST SURGICAL HISTORY OF Bilateral 10/01/2016 breast reduction mamoplasty /c b/l free nipple graft reconstruction - REMOVAL OF TONSILS,<12 Y/O Tonsillectomy Current Outpatient Prescriptions: FLUoxetine HCl (PROZAC) 40 mg capsule Take 1 capsule by mouth once daily. zolpidem (AMBIEN) 10 mg tab take 1 tablet by mouth at bedtime buPROPion XL (WELLBUTRIN XL) 300 mg 24 hr tablet take 1 tablet by mouth once daily promethazine (PHENERGAN) 25 mg tablet take 1 tablet by mouth every 6 hours if needed nausea and vomiting FERREX 150 150 mg iron capsule take 1 capsule by mouth twice a day nortriptyline (PAMELOR) 50 mg capsule take 1 capsule by mouth at bedtime buPROPion XL (WELLBUTRIN XL) 150 mg 24 hr tablet Take 1 tablet by mouth once daily. Total of 450 mg daily. levothyroxine (SYNTHROID) 175 mcg tablet take 1 tablet by mouth once daily BEFORE BREAKFAST HYDROmorphone (HYDROMORPHONE) 2 mg tablet Take 1-2 tablets 4 times daily as needed. PER DR. STEVENSON diazePAM (VALIUM) 5 mg tablet Take 1 tablet by mouth twice daily as needed. PER DR. STEVENSON COMPOUNDED PRESCRIPTION Obtain STAT CBC with diff, TIBC/iron , Ferritin, type and cross matchDx anemia COMPOUNDED PRESCRIPTION Obtain TSH, T4 and T4Dx: Hypothyroidism oxyCODONE-acetaminophen (PERCOCET) 5-325 mg tablet Take 1 tablet by mouth every 6 hours as needed for Pain. CALCIUM CARBONATE/VITAMIN D3 (CALCIUM 500 + D, D3, ORAL) Take by mouth three times daily. Cholecalciferol, Vitamin D3, (VITAMIN D) 1,000 unit cap Take 1,000 Units by mouth once daily. vitamin b complex (VITAMIN B COMPLEX) Tab Take 1 tablet by mouth once daily. biotin Tab Take 2,500 mcg by mouth once daily. THERAPEUTIC MULTIVITAMIN TAB Take one(1) tablet daily. No current facility-administered medications for this visit. 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 Gen: AANDOX3, NAD, non-toxic appearing, morbidly obese, tearful HEENT: PERRLA, EOMs intact b/l, nares without drainage, pharynx without erythema, exudate, lesions, or drainage. Uvula midline. Neck: No LAD, no thyromegaly, no meningismus. CV: RRR, no murmur Lungs: CTA b/l, no wheezing Skin: No rashes, lesions, or wounds on exposed skin. ASSESSMENT/PLAN: 1. Acquired hypothyroidism - ICD9: 244.9, ICD10: E03.9 (primary diagnosis) - Instructed patient on importance of taking on an empty stomach either first thing in the morning or at bedtime. - check TSH today - continue current dose of Synthroid - TSH BLD - T4 FREE/FREE THYROX - T3 BLD 2. Fatigue, unspecified type - ICD9: 780.79, ICD10: R53.83 - VITAMIN D 25 HYDROXY - VITAMIN B12 BLOOD 3. Dysthymia - ICD9: 300.4, ICD10: F34.1 - taper off Celexa, start on Prozac, continue Wellbutrin, consider counseling, if uncontrolled then recommend seeing Psychiatrist at that time. - FLUOXETINE 40 MG CAPSULE 4. Situational anxiety - ICD9: 300.09, ICD10: F41.8 - see above, - FLUOXETINE 40 MG CAPSULE 5. PTSD (post-traumatic stress disorder) - ICD9: 309.81, ICD10: F43.10 - see above - FLUOXETINE 40 MG CAPSULE Eduardo Perkins DO Return if no improvement. Follow up with Eduardo Perkins DO. Discussed risks, benefits, alternatives, and potential side effects of medications. Patient/Guardian expressed understanding and agreed with the plan. See patient instructions. Eduardo Perkins DO [address] [place] [address] FREE T4 Collected: 09/26/2017 Status: F Source: [place] 4:26 PM [facility] REPOSITORY TYPE CODE TESTS RESULT OUT OF RANGE REFERENCE UNITS LAB FT4 0.9-1.7 ng/dL Free T4 1.3 Performed By: #### FT4, T3, TSH, B12, VITD #### [facility] [address] [place], [place] [address] T3 Collected: 09/26/2017 Status: F Source: [facility] 4:26 PM [facility] REPOSITORY TYPE CODE TESTS RESULT OUT OF RANGE REFERENCE UNITS LAB T3 79-165 ng/dL T3 82 Performed By: #### FT4, T3, TSH, B12, VITD #### [facility] [address] [place] [id number] TSH Collected: 09/26/2017 Status: F Source: [place] 4:26 PM [facility] REPOSITORY TYPE CODE TESTS RESULT OUT OF RANGE REFERENCE UNITS LAB TSH 0.400-5.500 uU/mL High TSH 5.720 Result Comment: If the patient is , TSH reference range varies by gestational period: First Trimester 0.100-2.500 uU/mL Second Trimester 0.200-3.000 uU/mL Third Trimester 0.300-3.000 uU/mL References: 1. Martinez L, Luzmaria M, Man EK, et al. Management of Thyroid Dysfunction during and : An Endocrine Society Clinical Practice Guideline. J Clin Endocrinol Metab, 2012:97:5730-0053. 2. Zak FLORES. Overview of thyroid disease in . UpToDate. 2016. Accessed on March 15, 2016. Performed By: #### FT4, T3, TSH, B12, VITD #### [facility] [address] [place] [address] VITAMIN B12 Collected: 09/26/2017 Status: F Source: [place] 4:26 PM [facility] REPOSITORY TYPE CODE TESTS RESULT OUT OF REFERENCE UNITS RANGE LAB B12 232-1245 pg/mL High Vitamin B12 >2000 Performed By: #### FT4, T3, TSH, B12, VITD #### [facility] [address] [place] [address] VITAMIN D 25 HYDROXY Collected: 09/26/2017 Status: F Source: [place] 4:26 PM [facility] REPOSITORY TYPE CODE TESTS RESULT OUT OF REFERENCE UNITS RANGE LAB VITD 31.0-80.0 ng/mL Low Vitamin D 25 27.0 Hydroxy Result Comment: Classification of 25 [place] Vitamin D status: Insufficiency/Moderate Deficiency: < or = 30 ng/mL Sufficiency/Optimal Levels: 31 to 80 ng/mL Toxicity: > 100 ng/mL Test performed by chemiluminescent immunoassay. Performed By: #### FT4, T3, TSH, B12, VITD #### [facility] [address] [place] [address] CNOV Observed: 09/26/2017 Status: COMPLETED Source: [place] 3:40 PM [facility] REPOSITORY Office Visit (FAMPWS) ROBLES CARRASQUILLO ([id number]) 1970 F Date Time Provider Department 09/26/17 3:40 PM EDUARDO PERKINS FAMPWS During your visit today, we recorded the following information about you: Temperature Pulse Respiration Blood pressure 97.4 degrees 80/minute 20/minute 130/80 Weight Height 118.8 kg 1.689 m Eduardo Perkins, 09/26/2017 4:14 PM Signed Taper off the Celexa by taking 1/2 tablet once a day for 2 weeks, Then 1/2 tablet every other day for 1-2 weeks. Start the Prozac while tapering down off the Celexa Eduardo Perkins, 09/26/2017 4:42 PM Signed CC: Robles Carrasquillo is a 47 year old female who presents to the office for mood HPI: Depression, worsening over the last 2 months, was seen by Rhona and dose of Celexa increased to 40 mg a day, taking Wellbutrin 450 mg a day and also taking Nortriptyline. Struggling with depressed mood, intermittent anxiety and agitation and irritability, revolving stressors of her breast reduction surgical complications and dehiscence complications of her nipple repair and subsequent sepsis and wound vac. Likely to need breast implant/reconstructive surgery after mastectomy of right breast due to non healing, no SI or HI. Does have good support from mother and step father, Also recently her snf boyfriend of 19 years left her and her kids abruptly. PAST MEDICAL HISTORY Diagnosis Date - Excessive or frequent menstruation lots of clots - Irregular menstrual cycle occurs too frequently - Left breast abscess - Left breast mass - Left inguinal hernia 11/08/14 - Morbid obesity (HCC) s/p Bruce n Y - PMH - PAST MEDICAL HISTORY OF DUB - Toxic diffuse goiter without mention of thyrotoxic crisis or storm 2002 Grave's disease radioactive iodine PAST SURGICAL HISTORY Procedure Laterality Date - ANESTH, SECTION x2 - BX OF BREAST; INCISIONAL Left 04/14/2015 - EXPLO/DRAIN BREAST ABSCESS Left 08/16/15 - GASTRIC BYPASS HX 2009 off HTN and HPL meds - HERNIA REPAIR W/MESH 11/08/14 lap LIH - LIGATE FALLOPIAN TUBE 2000 - PANNICULECTOMY 2012 Dr. Kent (Plastic surgery) - PAST SURGICAL HISTORY OF 11/04 uterine ablation - PAST SURGICAL HISTORY OF 2009 abd hernia repair - PAST SURGICAL HISTORY OF Bilateral 10/01/2016 breast reduction mamoplasty /c b/l free nipple graft reconstruction - REMOVAL OF TONSILS,ANDlt;14 Y/O Tonsillectomy Current Outpatient Prescriptions: FLUoxetine HCl (PROZAC) 40 mg capsule Take 1 capsule by mouth once daily. zolpidem (AMBIEN) 10 mg tab take 1 tablet by mouth at bedtime buPROPion XL (WELLBUTRIN XL) 300 mg 24 hr tablet take 1 tablet by mouth once daily promethazine (PHENERGAN) 25 mg tablet take 1 tablet by mouth every 6 hours if needed nausea and vomiting FERREX 150 150 mg iron capsule take 1 capsule by mouth twice a day nortriptyline (PAMELOR) 50 mg capsule take 1 capsule by mouth at bedtime buPROPion XL (WELLBUTRIN XL) 150 mg 24 hr tablet Take 1 tablet by mouth once daily. Total of 450 mg daily. levothyroxine (SYNTHROID) 175 mcg tablet take 1 tablet by mouth once daily BEFORE BREAKFAST HYDROmorphone (HYDROMORPHONE) 2 mg tablet Take 1-2 tablets 4 times daily as needed. PER DR. STEVENSON diazePAM (VALIUM) 5 mg tablet Take 1 tablet by mouth twice daily as needed. PER DR. STEVENSON COMPOUNDED PRESCRIPTION Obtain STAT CBC with diff, TIBC/iron , Ferritin, type and cross matchDx anemia COMPOUNDED PRESCRIPTION Obtain TSH, T4 and T4Dx: Hypothyroidism oxyCODONE-acetaminophen (PERCOCET) 5-325 mg tablet Take 1 tablet by mouth every 6 hours as needed for Pain. CALCIUM CARBONATE/VITAMIN D3 (CALCIUM 500 + D, D3, ORAL) Take by mouth three times daily. Cholecalciferol, Vitamin D3, (VITAMIN D) 1,000 unit cap Take 1,000 Units by mouth once daily. vitamin b complex (VITAMIN B COMPLEX) Tab Take 1 tablet by mouth once daily. biotin Tab Take 2,500 mcg by mouth once daily. THERAPEUTIC MULTIVITAMIN TAB Take one(1) tablet daily. No current facility-administered medications for this visit. 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 Gen: AANDamp;OX3, NAD, non-toxic appearing, morbidly obese, tearful HEENT: PERRLA, EOMs intact b/l, nares without drainage, pharynx without erythema, exudate, lesions, or drainage. Uvula midline. Neck: No LAD, no thyromegaly, no meningismus. CV: RRR, no murmur Lungs: CTA b/l, no wheezing Skin: No rashes, lesions, or wounds on exposed skin. ASSESSMENT/PLAN: 1. Acquired hypothyroidism - ICD9: 244.9, ICD10: E03.9 (primary diagnosis) - Instructed patient on importance of taking on an empty stomach either first thing in the morning or at bedtime. - check TSH today - continue current dose of Synthroid - TSH BLD - T4 FREE/FREE THYROX - T3 BLD 2. Fatigue, unspecified type - ICD9: 780.79, ICD10: R53.83 - VITAMIN D 25 HYDROXY - VITAMIN B12 BLOOD 3. Dysthymia - ICD9: 300.4, ICD10: F34.1 - taper off Celexa, start on Prozac, continue Wellbutrin, consider counseling, if uncontrolled then recommend seeing Psychiatrist at that time. - FLUOXETINE 40 MG CAPSULE 4. Situational anxiety - ICD9: 300.09, ICD10: F41.8 - see above, - FLUOXETINE 40 MG CAPSULE 5. PTSD (post-traumatic stress disorder) - ICD9: 309.81, ICD10: F43.10 - see above - FLUOXETINE 40 MG CAPSULE Eduardo Perkins DO Return if no improvement. Follow up with Eduardo Perkins DO. Discussed risks, benefits, alternatives, and potential side effects of medications. Patient/Guardian expressed understanding and agreed with the plan. See patient instructions. Eduardo Perkins DO [address] [place] [address] Referring Provider: SELF [200] Allergies As of Date: 09/26/2017 Noted Allergy Reaction ALEVE (NAPROXEN SODIUM) 07/18/2006 8 - GI Upset CODEINE 07/18/2006 2 - Rash 8 - GI Upset PENICILLINS 07/18/2006 4 - Hives Date Reviewed: 07/24/2017 Reviewed by: Lloyd Gibbs LPN - Fully Assessed Reason for Visit: Depression [32] Reason For Visit History Recorded Primary Visit Diagnosis:Acquired hypothyroidism [E03.9] Other Visit Diagnoses:Fatigue, unspecified type [R53.83] Dysthymia [F34.1] Situational anxiety [F41.8] PTSD (post-traumatic stress disorder) [F43.10] Order(s):VITAMIN D 25 HYDROXY [SQVITD] Order #: [id number] FUTURE VITAMIN B12 BLOOD [SQB12] Order #: [id number] FUTURE TSH BLD [SQTSH] Order #: [id number] FUTURE T4 FREE/FREE THYROX [SQFT4] Order #: [id number] FUTURE T3 BLD [SQT3] Order #: [id number] FUTURE FLUoxetine HCl (PROZAC) 40 mg capsuleTake 1 capsule by mouth once daily.Disp: 30 capsuleRfl: 4 Prescriptions as of 09/26/2017 Sig: FLUOXETINE 40 MG CAPSULE Take 1 capsule by mouth once * ZOLPIDEM 10 MG TABLET take 1 tablet by mouth at bed* BUPROPION XL 300 MG 24 HR TAB take 1 tablet by mouth once d* PROMETHAZINE 25 MG TABLET take 1 tablet by mouth every * FERREX 150 MG IRON CAPSULE take 1 capsule by mouth twice* NORTRIPTYLINE 50 MG CAPSULE take 1 capsule by mouth at be* BUPROPION XL 150 MG TAB Take 1 tablet by mouth once d* LEVOTHYROXINE 175 MCG TABLET take 1 tablet by mouth once d* HYDROMORPHONE 2 MG TABLET Take 1-2 tablets 4 times javon* DIAZEPAM 5 MG TABLET Take 1 tablet by mouth twice * COMPOUNDED PRESCRIPTION Obtain STAT CBC with diff, TI* COMPOUNDED PRESCRIPTION Obtain TSH, T4 and T4 Dx: Hy* OXYCODONE-ACETAMINOPHEN 5 MG-* Take 1 tablet by mouth every * CALCIUM 500 + D (D3) ORAL Take by mouth three times da* CHOLECALCIFEROL (VITAMIN D3) * Take 1,000 Units by mouth onc* VITAMIN B COMPLEX TABLET Take 1 tablet by mouth once d* BIOTIN 2,500 MCG TABLET Take 2,500 mcg by mouth once * THERAPEUTIC MULTIVITAMIN TABL* Take one(1) tablet daily. Problem List As Of Date 09/26/2017 Noted Resolved METRORRHAGIA [N92.1] INVALID FOR* OVARIAN CYST NEC/NOS [N83.209] INVALID FOR* IRREGULAR MENSTRUATION [N92.6] INVALID FOR* Recurrent major depression in partial remission*INVALID FOR* HYPOTHYROIDISM NOS [E03.9] INVALID FOR*02/27/2007 Acquired hypothyroidism [E03.9] INVALID FOR* MORBID OBESITY [E66.01] INVALID FOR* Abdominal pannus [E65] INVALID FOR* Breast abscess [N61.1] INVALID FOR* Other instructions from your clinician: Taper off the Celexa by taking 1/2 tablet once a day for 2 weeks, Then 1/2 tablet every other day for 1-2 weeks. Start the Prozac while tapering down off the Celexa Prescriptions ordered this encounter Disp Refills Start End FLUOXETINE 40 MG CAPSULE 30 c* 4 09/26/2017 Route: ORAL Sig: Take 1 capsule by mouth once daily. Medications Discontinued During This Encounter citalopram (CELEXA) 40 mg tablet 30 t* 3 07/11/2017 09/26/2017 Sig: take 1 tablet by mouth once daily Disc: Reason for discontinue is not on file. Encounter Status:Closed by EDUARDO PERKINS DO on 09/26/17 ALLERGIES ALLERGIES DATE TYPE / CODE NAME / CODE REACTION SEVERITY SOURCE 09/07/2018 Drug NSAIDS Other Unknown [place] Allergy/416 (Non-Steroidal Community 775529([facility] Anti-Inflamma/F001 [address] ED CT) 612702(RXNORM) Repository 09/07/2018 Drug Penicillins/E43784 Rash Unknown [place] Allergy/416 0476(RXNORM) Community 753406([facility] ED CT) Repository 09/07/2018 Drug codeine/[id number] Rash Unknown [place] Allergy/416 (RXNORM) Community 940475([facility] ED CT) Repository 07/18/2006 DRUG NAPROXEN SODIUM GI UPSET [facility] INGREDI/419 Main [place] 290519(SNOM Repository ED CT) 07/18/2006 DRUG CODEINE RASH [facility] INGREDI/419 Main [place] 529967(SNOM Repository ED CT) 07/18/2006 Drug PENICILLINS HIVES [facility] Class/71004 Main [place] 1003(SNOMED Repository CT) ENCOUNTERS ENCOUNTERS ADMIT/DISCHARGE ACCOUNT ADMITTING ENCOUNTER LOCATION SOURCE NUMBER CLASS 09/14/2018 [id number] Ambulatory [facility] ing:HHLAB Repository 09/09/2018 [id number] Sean Stevenson Ambulatory BMSBuilding:Anastasia [place].[facility] Repository 09/09/2018 [id number] Sean Stevenson Ambulatory BMSBuilding:[place]astasia [place].[facility] Repository 09/09/2018/09/10/20 [id number] Sean Stevenson Inpatient [facility] [address] [facility] ing:HI0Atth: Repository KU294Tqe: 1 08/31/2018 [id number] Ambulatory [facility] ing: Repository 08/28/2018 [id number] Ambulatory [facility] ing:MTLAB Repository 08/24/2018 [id number] Ambulatory BMSBuilding:Anastasia Nova [place].[facility] Repository 08/24/2018/08/28/20 [id number] Ambulatory [address] ing: Repository 08/17/2018 [id number] Ambulatory BMSBuilding:Anastasia Nova [place].[facility] Repository 08/10/2018 [id number] Ambulatory BMSBuilding:[place] Repository 08/03/2018 [id number] Ambulatory BMSBuilding:[place] Repository 07/27/2018 [id number] Ambulatory BMSBuilding:[place] Repository 07/27/2018/07/29/20 [id number] [address] ing: Repository 07/20/2018 [id number] Ambulatory BMSBuilding:B [place] Repository 07/13/2018 [id number] Ambulatory BMSBuilding:B [place] Repository 07/06/2018 [id number] Ambulatory BMSBuilding:Anastasia Nova [place].[facility] Repository 07/01/2018/07/01/20 [id number] Ambulatory BMSBuilding:B [place] 18 [facility] Repository 06/29/2018 [id number] Ambulatory BMSBuilding:Anastasia Nova [place].[facility] Repository 06/29/2018/06/29/20 [id number] Ambulatory [address] Hospital ing:[facility] Repository 06/22/2018/06/28/20 [id number] Ambulatory [address] Hospital ing:[facility] Repository 06/15/2018 [id number] Ambulatory BMSBuilding:Anastasia [place] [facility] Repository 06/15/2018/06/28/20 [id number] Ambulatory [address] Hospital ing: Repository 06/04/2018/06/04/20 [id number] Ambulatory BMSBuilding:B [place] 18 [facility] Repository 05/27/2018/05/29/20 [id number] Ambulatory [address] Hospital ing:[facility] Repository 05/26/2018/05/28/20 [id number] Ambulatory [address] Repository 05/19/2018/05/21/20 [id number] Sean Stevenson Inpatient [place] 18 Encounter [facility] Hospital ing:FP1Enzf: Repository GN250Pfl: 1 05/19/2018 [id number] Sean Stevenson Ambulatory BMSBuilding:B [place].[facility] Repository 05/19/2018 [id number] Sean Stevenson Ambulatory BMSBuilding:[place] Repository 05/19/2018 [id number] Sean Stevenson Ambulatory BMSBuilding:[place] [facility] Repository 05/19/2018 [id number] Ambulatory BMSBuilding:B [place].[facility] Repository 05/19/2018/05/19/20 [id number] Ambulatory BMSBuilding:B [place] 18 MS.[facility] Repository 05/12/2018/05/12/20 [id number] Ambulatory BMSBuilding:B [place] 18 MS.[facility] Repository 05/08/2018 [id number] Ambulatory [facility] Hospital ing:MEDOUTP Repository 05/05/2018/05/07/20 [id number] Sean Stevenson Inpatient [place] 18 Encounter [facility] Hospital ing:BJ9Lxfg: Repository JR076Xpt: 1 05/05/2018 [id number] Sean Stevenson Ambulatory BMSBuilding:[place] Repository 05/05/2018 [id number] Sean Stevenson Ambulatory BMSBuilding:B [place] Repository 04/27/2018 [id number] Ambulatory [facility] Hospital ing:MTLAB Repository 04/14/2018 [id number] Ambulatory [facility] Hospital ing:PAT Repository 03/12/2018 [id number] Ambulatory [facility] Hospital ing:LABSPEC Repository 03/12/2018/03/12/20 [id number] Ambulatory BMSBuilding:B [place] 18 MS.[facility] Repository 02/25/2018/02/26/20 [id number] Ambulatory BMSBuilding:B [place] 18 [facility] Repository 02/11/2018/02/12/20 [id number] Ambulatory BMSBuilding:B [place] [address] Repository 02/04/2018/02/05/20 [id number] Ambulatory BMSBuilding:B [place] [address] Repository 02/02/2018 [id number] [facility] Repository 01/26/2018 [id number] [facility]ulatory [facility] ing:MEDOUTP Repository 01/19/2018 [id number] [facility] Repository 01/16/2018/01/17/20 [id number] Ambulatory BMSBuilding:B [place] 18 [facility] Repository 01/12/2018 [id number] Ambulatory [facility] ing:MEDOUTP Repository 01/10/2018/01/11/20 [id number] [address] ing:ED Repository 01/06/2018/01/07/20 [id number] Ambulatory BMSBuilding:B [place] [address] Repository 01/05/2018 [id number] Ambulatory [facility] ing:MEDOUTP Repository 01/02/2018/01/03/20 [id number] Ambulatory BMSBuilding:B [place] [address] Repository 01/02/2018 [id number] [facility]ulatory [facility] ing:MEDOUTP Repository 12/29/2017 [id number] [facility] ing:MEDOUTP Repository 12/25/2017/12/26/19 [id number] Ambulatory BMSBuilding:B [place] [address] Repository 12/22/2017 [id number] Ambulatory [facility] ing:MEDOUTP Repository 12/17/2017/12/19/19 [id number] Sean Stevenson [address] ing:YI5Xvfm: Repository IL737Dgt: 1 12/17/2017 [id number] Sean Stevenson Ambulatory BMSBuilding:[place] Repository 12/15/2017 [id number] Ambulatory BMSBuilding:Anastasia Nova [place].[facility] Repository 11/12/2017/11/12/19 [id number] Ambulatory BMSBuilding:Anastasia Nova 18 [facility] Repository 10/30/2017 [id number] Ambulatory BMS [facility] Repository 10/21/2017/10/21/19 [id number] Ambulatory [address] Repository 10/09/2017 [id number] Ambulatory [place] [facility] ing: Repository 10/08/2017/10/08/19 [id number] Ambulatory BMSBuilding:Anastasia [place] 18 [facility] Repository 09/26/2017 [id number] Ambulatory [facility] Repository 09/26/2017/09/30/19 [id number] Ambulatory [address] Repository PAYERS PAYERS ENCOUNTER GUARANTOR PAYER SUBSCRIBER SOURCE 09/14/2018 ROBLES Hyde Primary ROBLES Nova [id number] FRIAR Insurance:CARESOURCEP HOVINGDOB: [facility] Number: [id number] [facility]ingley [facility] [address]Jsl: [id number] Repository Date:2018-05-11 O () [address]ATTN: [place] [address]JA: 09/14/2018 Secondary NOT GIVENUNK [place] Insurance:SELF PAY [facility] Number: Effective Repository Date:2018-06-30 09/09/2018 ROBLES Hyde Primary ROBLES Nova [id number] FRIAR Insurance:MEDICARE HOVINGDOB: [facility], PART A [facility] [id number] Tingley Hospital [address]Ame: Number: Repository [id number] () Date:2018-08-28 09/09/2018 Secondary ROBLES Nova Insurance:MEDICAIDPol HOVINGDOB: [facility] Number: [id number] Hospital [id number] Repository Date:2018-08-28 09/09/2018 Tertiary NOT GIVENUNK [place] Insurance:SELF PAY [facility] Number: Effective Repository Date:2018-09-07 09/09/2018 ROBLES Hyde Primary ROBLES Borjasoster [id number] FRIAR Insurance:MEDICARE HOVINGDOB: [facility] [id number] Tingley Hospital [address]Uvf: Number: Repository [id number] (HP) Date:2018-08-28 09/09/2018 Secondary ROBLES Hyde [place] Insurance:MEDICAIDPol HOV[facility]DOB: [facility] icy Number: [id number] Hospital [id number] Repository Date:2018-08-28 09/09/2018 Tertiary NOT GIVENUNK [place] Insurance:SELF PAY [facility] Number: Effective Repository Date:2018-09-08 09/09/2018 ROBLES Hyde Primary ROBLES Borjasoster [id number] FRIAR Insurance:MEDICARE HOVINGDOB: [facility], PART A [facility] [id number] Tingley Hospital [address]Uon: Number: Repository [id number] (HP) Date:2018-08-28 09/09/2018 Secondary ROBLES Hyde [place] Insurance:MEDICAIDPol HOVINGDOB: [facility] icy Number: [id number] Hospital [id number] Repository Date:2018-08-28 09/09/2018 Tertiary NOT GIVENUNK [place] Insurance:SELF PAY [facility] Number: Effective Repository Date:2018-08-28 08/31/2018 ROBLES Hyde Primary ROBLES Nova [id number] FRIAR Insurance:MEDICARE HOVINGDOB: [facility], PART A [facility] [id number] Tingley Hospital [address]Qiu: Number: Repository [id number] (HP) Date:2018-08-29 08/31/2018 Secondary ROBLES Hyde [place] Insurance:MEDICAIDPol HOVINGDOB: [facility] icy Number: [id number] Hospital [id number] Repository Date:2018-08-29 08/31/2018 Tertiary NOT GIVENUNK [place] Insurance:SELF PAY [facility] Number: Effective Repository Date:2018-08-29 08/28/2018 ROBLES Hyde Primary ROBLES Borjasoster [id number] FRIAR Insurance:MEDICARE HOVINGDOB: [facility] [place], PART A [facility] [id number] Tingley Hospital [address]Cku: Number: Repository [id number] (HP) Date:2018-08-25 08/28/2018 Secondary ROBLES Hyde [place] Insurance:MEDICAIDPol HOVINGDOB: Community icy Number: [id number] Hospital [id number] Repository Date:2018-08-25 08/28/2018 Tertiary NOT GIVENUNK [place] Insurance:SELF PAY [facility] Number: Effective Repository Date:2018-08-25 08/24/2018 ROBLES Hyde Primary ROBLES Borjasoster [id number] FRI[place] Insurance:MEDICARE HOVINGDOB: Community [place], PART A [facility] [id number] Tingley Hospital [address]Kvs: Number: Repository [id number] (HP) Date:2018-06-29 08/24/2018 Secondary ROBLES Hyde [place] Insurance:MEDICAIDPol HOVINGDOB: Community icy Number: [id number] Hospital [id number] Repository Date:2018-06-29 08/24/2018 Tertiary NOT GIVENUNK [place] Insurance:SELF PAY [facility] Number: Effective Repository Date:2018-08-24 08/24/2018 ROBLES Hyde Primary ROBLES Borjasoster [id number] FRI[place] Insurance:MEDICARE HOVINGDOB: [facility] [place], PART A [facility] [id number] Tingley Hospital [address]Wly: Number: Repository [id number] (HP) Date:2018-06-29 08/24/2018 Secondary ROBLES Hyde [place] Insurance:MEDICAIDPol HOVINGDOB: [facility] icy Number: [id number] Hospital [id number] Repository Date:2018-06-29 08/24/2018 Tertiary NOT GIVENUNK [place] Insurance:SELF PAY [facility] Number: Effective Repository Date:2018-07-30 08/17/2018 ROBLES Hyde Primary ROBLES Nova [id number] FRI[place] Insurance:MEDICARE HOVINGDOB: Community [place], PART A [facility] [id number] Tingley Hospital [address]Hrx: Number: Repository [id number] (HP) Date:2018-06-29 08/17/2018 Secondary ROBLES Hyde [place] Insurance:MEDICAIDPol HOVINGDOB: Community icy Number: [id number] Hospital [id number] Repository Date:2018-06-29 08/17/2018 Tertiary NOT GIVENUNK [place] Insurance:SELF PAY [facility] Number: Effective Repository Date:2018-08-17 08/10/2018 ROBLES Hyde Primary ROBLES Borjasoster [id number] [place] Insurance:MEDICARE HOVINGDOB: Community [place], PART A [facility] [id number] Tingley Hospital [address]Nqo: Number: Repository [id number] (HP) Date:2018-06-29 08/10/2018 Secondary ROBLES Hyde [place] Insurance:MEDICAIDPol HOVINGDOB: Community icy Number: [id number] Hospital [id number] Repository Date:2018-06-29 08/10/2018 Tertiary NOT GIVENUNK [place] Insurance:SELF PAY [facility] Number: Effective Repository Date:2018-08-10 08/03/2018 ROBLES Hyde Primary ROBLES Borjasoster [id number] FRI[place] Insurance:MEDICARE HOVINGDOB: [facility] [id number] [place] [address]Fbh: Number: Repository [id number] (HP) Date:2018-06-29 08/03/2018 Secondary ROBLES Hyde [place] Insurance:MEDICAIDPol HOVINGDOB: [facility] icy Number: [id number] Hospital [id number] Repository Date:2018-06-29 08/03/2018 Tertiary NOT GIVENUNK [place] Insurance:SELF PAY [facility] Number: Effective Repository Date:2018-08-03 07/27/2018 ROBLES Hyde Primary ROBLES Nova [id number] FRIAR Insurance:MEDICARE HOVINGDOB: [facility] [place], PART A [facility] [id number] Tingley Hospital [address]Dhd: Number: Repository [id number] () Date:2018-06-29 07/27/2018 Secondary ROBLES Hyde [place] Insurance:MEDICAIDPol HOVINGDOB: [facility] icy Number: [id number] Hospital [id number] Repository Date:2018-06-29 07/27/2018 Tertiary NOT GIVENUNK [place] Insurance:SELF PAY [facility] Number: Effective Repository Date:2018-07-27 07/27/2018 ROBLES Hyde Primary ROBLES Nova [id number] FRIAR Insurance:MEDICARE HOVINGDOB: [facility], PART A [facility] [id number] Tingley Hospital [address]Pjy: Number: Repository [id number] (HP) Date:2018-06-29 07/27/2018 Secondary ROBLES Hyde Rohini Insurance:MEDICAIDPol HOVINGDOB: Community icy Number: [id number] Hospital [id number] Repository Date:2018-06-29 07/27/2018 Tertiary NOT GIVENUNK [place] Insurance:SELF PAY [facility] Number: Effective Repository Date:2018-06-29 07/20/2018 ROBLES Hyde Primary ROBLES Nova [id number] FRI[place] Insurance:MEDICAIDPol HOVINGDOB: [facility], icy Number: [id number] Hospital [place] [address]Hrf: [id number] Repository Date:2018-06-29 () 07/20/2018 Secondary ROBLES Hyde [place] Insurance:MEDICARE HOVINGDOB: Community PART A [facility] [id number] Hospital Number: Repository [id number] Date:2018-06-29 07/20/2018 Tertiary NOT GIVENUNK [place] Insurance:SELF PAY [facility] Number: Effective Repository Date:2018-07-20 07/13/2018 ROBLES Hyde Primary ROBLES Nova [id number] FRIAR Insurance:MEDICARE HOVINGDOB: Community [place], PART A [facility] [id number] Tingley Hospital [address]Far: Number: Repository [id number] () Date:2018-07-13 07/13/2018 Secondary ROBLES Hyde [place] Insurance:MEDICAIDPol HOVINGDOB: Community icy Number: [id number] Hospital [id number] Repository Date:2018-06-29 07/13/2018 Tertiary NOT GIVENUNK [place] Insurance:SELF PAY [facility] Number: Effective Repository Date:2018-07-13 07/06/2018 ROBLES Nova [id number] FRIAR Insurance:MEDICAIDPol [facility] ic Number: [id number] Tingley Hospital [address]Ouh: [id number] Repository Date:2018-06-29 () 07/06/2018 Secondary NOT GIVENUNK [place] Insurance:SELF PAY [facility] Number: Effective Repository Date:2018-07-06 07/01/2018 ROBLES Hyde Primary ROBLES Nova [id number] FRIAR Insurance:MEDICARE HOVINGDOB: [facility] [place], PART A [facility] [id number] Tingley Hospital [address]Srt: Number: Repository [id number] () Date:2018-07-01 07/01/2018 Secondary ROBLES Hyde [place] Insurance:MEDICAIDPol HOVINGDOB: Community icy Number: [id number] Hospital [id number] Repository Date:2018-07-01 07/01/2018 Tertiary NOT GIVENUNK [place] Insurance:SELF PAY [facility] Number: Effective Repository Date:2018-07-01 06/29/2018 ROBLES Hyde Primary ROBLES Nova [id number] FRIAR Insurance:MEDICARE HOVINGDOB: Community [place], PART A BPolicy [id number] Tingley Hospital [address]Vbx: Number: Repository [id number] (HP) Date:2018-06-29 06/29/2018 Secondary ROBLES Hyde Orhini Insurance:MEDICAIDPol HOVINGDOB: Community icy Number: [id number] Hospital [id number] Repository Date:2018-06-29 06/29/2018 Tertiary NOT GIVENUNK [place] Insurance:SELF PAY [facility] Number: Effective Repository Date:2018-06-29 06/29/2018 ROBLES Hyde Primary ROBLES Nova [id number] FRI[place] Insurance:CARESOURCEP HOVINGDOB: [facility] nilo ALMARAZarmando Number: [id number] Tingley Hospital [address]Orv: [id number] Repository Date:2018-05-11P O () [address]ATTN: [place] [address]EX: 06/29/2018 Secondary NOT GIVENUNK [place] Insurance:SELF PAY [facility] Number: Effective Repository Date:2018-06-29 06/22/2018 ROBLES Hyde Primary ROBLES Nova [id number] FRIAR Insurance:CARESOURCEP HOVINGDOB: [facility] Number: [id number] Tingley Hospital [address]Vze: [id number] Repository Date:2018-05-11P O () [address]ATTN: [place] [address]VM: 06/22/2018 Secondary NOT GIVENUNK [place] Insurance:SELF PAY [facility] Number: Effective Repository Date:2018-05-30 06/15/2018 ROBLES Nova [id number] FRIAR Insurance:CARESOURCEP HOVINGDOB: [facility] nilo ALMARAZarmando Number: [id number] Tingley Hospital [address]Jlg: [id number] Repository Date:2018-06-15 O (HP) [address]ATTN: [place] [address]JL: 06/15/2018 Secondary NOT GIVENUNK Rohini Insurance:SELF PAY [facility] Number: Effective Repository Date:2018-06-15 06/15/2018 ROBLES Hyde Primary ROBLES Nova [id number] FRIAR Insurance:CARESOURCEP HOVINGDOB: Community shonda ALMARAZ Number: [id number] Tingley Hospital [address]Igy: [id number] Repository Date:2018-06-15 O (HP) [address]ATTN: [place] [address]AP: 06/15/2018 Secondary NOT GIVENUNK Roh[place] Insurance:SELF PAY [facility] Number: Effective Repository Date:2018-06-15 06/04/2018 ROBLES Hyde Primary ROBLES Nova [id number] FRIAR Insurance:CARESOURCEP HOVINGDOB: Community shonda ALAMRAZ Number: [id number] Tingley Hospital [address]Ypm: [id number] Repository Date:2018-05-26 O () [address]ATTN: [place] [address]NP: 06/04/2018 Secondary NOT GIVENUNK [place] Insurance:SELF PAY [facility] Number: Effective Repository Date:2018-06-02 05/27/2018 ROBLES Nova [id number] F[place] Insurance:CARESOURCEP HOVINGDOB: Community shonda ALMARAZ Number: [id number] Tingley Hospital [address]Myb: [id number] Repository Date:2018-05-11 O (HP) [address]ATTN: [place] [address]KH: 05/27/2018 Secondary NOT GIVENUNK [place] Insurance:SELF PAY [facility] Number: Effective Repository Date:2018-05-11 05/19/2018 ROBLES Nova [id number] FRIAR Insurance:CARESOURCEP HOVINGDOB: [facility] shonda ALMARAZ Number: [id number] Tingley Hospital [address]Gml: [id number] Repository Date:2018-05-19P O (HP) [address]ATTN: [place] [address]MG: 05/19/2018 Secondary NOT GIVENUNK Rohini Insurance:SELF PAY [facility] Number: Effective Repository Date:2018-05-19 05/19/2018 ROBLES Nova [id number] FRIAR Insurance:CARESOURCEP HOVINGDOB: [facility] DENICE HERNANDEZ shonda Number: [id number] Tingley Hospital [address]Tzw: [id number] Repository Date:2018-05-19P O () [address]ATTN: [place] [address]PO: 05/19/2018 Secondary NOT GIVENUNK [place] Insurance:SELF PAY [facility] Number: Effective Repository Date:2018-05-19 05/19/2018 ROBLES Nova [id number] FRI[place] Insurance:CARESOURCEP HOVINGDOB: [facility] DENICE HERNANDEZ shonda Number: [id number] Tingley Hospital [address]Ahb: [id number] Repository Date:2018-05-19P O (HP) [address]ATTN: [place] [address]GX: 05/19/2018 Secondary NOT GIVENUNK [place] Insurance:SELF PAY [facility] Number: Effective Repository Date:2018-05-19 05/19/2018 ROBLES Nova [id number] FRI[place] Insurance:CARESOURCEP HOVINGDOB: [facility] shonda HERNANDEZ Number: [id number] Tingley Hospital [address]Dts: [id number] Repository Date:2018-05-19P O (HP) [address]ATTN: [place] [address]OH: 05/19/2018 Secondary NOT GIVENUNK [place] Insurance:[facility]LF [facility]Y [facility] [facility] Number: Effective Repository Date:2018-05-19 05/19/2018 ROBLES Nova [id number] FRIAR Insurance:CARESOURCEP HOVINGDOB: [facility] ALMARAZ Number: [id number] Tingley Hospital [address]Gjf: [id number] Repository Date:2018-05-19P O ([address]) [address]ATTN: [place] [address]JO: 05/19/2018 Secondary NOT GIVENUNK [place] Insurance:SELF PAY [facility] Number: Effective Repository Date:2018-05-19 05/19/2018 ROBLES Nova [id number] FRIAR Insurance:CARESOURCEP HOVINGDOB: [facility] shonda ALMARAZ Number: [id number] Tingley Hospital [address]8967Emu: [id number] Repository Date:2018-05-12P O (HP) [address]ATTN: [place] [address]KK: 05/19/2018 Secondary NOT GIVENUNK [place] Insurance:SELF PAY [facility] Number: Effective Repository Date:2018-05-19 05/12/2018 ROBLES Nova [id number] FRIAR Insurance:CARESOURCEP HOVINGDOB: [facility] shonda ALMARAZ Number: [id number] Tingley Hospital [address]Qbk: [id number] Repository Date:2018-05-08 O (HP) [address]ATTN: [place] [address]TV: 05/12/2018 Secondary NOT GIVENUNK [place] Insurance:SELF PAY [facility] Number: Effective Repository Date:2018-05-12 05/08/2018 ROBLES Nova [id number] FRIAR Insurance:CARESOURCEP HOVINGDOB: [facility] shonda ALMARAZ Number: [id number] Tingley Hospital [address]Cyh: [id number] Repository Date:2018-05-08P O (HP) [address]ATTN: [place] [address]JX: 05/08/2018 Secondary NOT GIVENUNK [place] Insurance:SELF PAY [facility] Number: Effective Repository Date:2018-05-08 05/05/2018 ROBLES Nova [id number] FRIAR Insurance:CARESOURCEP HOVINGDOB: [facility] shonda NEWSOME Number: [id number] Tingley Hospital [address]Grd: [id number] Repository Date:2018-04-30P O (HP) [address]ATTN: [place] [address]AL: 05/05/2018 Secondary NOT GIVENUNK [place] Insurance:SELF PAY [facility] Number: Effective Repository Date:2018-04-30 05/05/2018 ROBLES Nova [id number] FRIAR Insurance:CARESOURCEP HOVINGDOB: [facility] shonda NEWSOME Number: [id number] Tingley Hospital [address]Lwb: [id number] Repository Date:2018-04-30P O (HP) [address]ATTN: [place] [address]CD: 05/05/2018 Secondary NOT GIVENUNK [place] Insurance:SELF PAY [facility] Number: Effective Repository Date:2018-05-05 05/05/2018 ROBLES Nova [id number] FRIAR Insurance:CARESOURCEP HOVINGDOB: [facility] shonda ALMARAZ Number: [id number] Tingley Hospital [address]Cqy: [id number] Repository Date:2018-04-30P O (HP) [address]ATTN: [place] [address]EG: 05/05/2018 Secondary NOT GIVENUNK [place] Insurance:SELF PAY [facility] Number: Effective Repository Date:2018-05-05 04/27/2018 ROBLES Hyde Primary ROBLES Nova [id number] FRIAR Insurance:CARESOURCEP [facility] Number: [id number] Tingley Hospital [address]Wrd: [id number] Repository Date:2018-04-27P O (HP) [address]ATTN: [place] [address]SN: 04/27/2018 Secondary NOT GIVENUNK [place] Insurance:SELF PAY [facility] Number: Effective Repository Date:2018-04-27 04/14/2018 ROBLES Hyde Primary ROBLES Nova [id number] FRI[place] Insurance:CARESOURCEP HOVINGDOB: [facility] shonda ALMARAZ Number: [id number] Tingley Hospital [address]189Oll: [id number] Repository Date:2018-03-25P O () [address]ATTN: [place] [address]MK: 04/14/2018 Secondary NOT GIVENUNK [place] Insurance:SELF PAY [facility] Number: Effective Repository Date:2018-03-25 03/12/2018 ROBLES Nova [id number] FRI[place] Insurance:CARESOURCEP HOVINGDOB: [facility] shonda NEWSOME Number: [id number] Tingley Hospital [address]Hmh: [id number] Repository [phone] Date:2018-03-12P O -6 (HP) [address]ATTN: [place] [address]QR: 03/12/2018 Secondary NOT GIVENUNK Rohini Insurance:SELF PAY [facility] Number: Effective Repository Date:2018-03-12 03/12/2018 ROBLES Nova [id number] [place] Insurance:CARESOURCEP HOVINGDOB: [facility] shonda LOVE Number: [id number] Tingley Hospital [address]Cbs: [id number] Repository [phone] Date:2018-02-25P O -6 (HP) [address]ATTN: [facility] [address]EL: 03/12/2018 Secondary NOT GIVENUNK [place] Insurance:SELF PAY [facility] Number: Effective Repository Date:2018-03-10 02/25/2018 ROBLES Nova [id number] FRI[place] Insurance:CARESOURCEP HOVINGDOB: [facility] shonda LOVE Number: [id number] Tingley Hospital [address]Ydf: [id number] Repository [phone] Date:2018-02-11P O -6 (HP) [address]ATTN: [place] [address]QP: 02/25/2018 Secondary NOT GIVENUNK [place] Insurance:SELF PAY [facility] Number: Effective Repository Date:2018-02-17 02/11/2018 ROBLES Nova [id number] FRI[place] Insurance:CAR[employer]OURCEP HOVINGDOB: [facility]AY shonda NEWSOME Number: [id number] Tingley Hospital [address]Jbf: [id number] Repository [phone] Date:2018-02-04P O -6 (HP) [address]ATTN: [place] [address]AK: 02/11/2018 Secondary NOT GIVENUNK [place] Insurance:SELF PAY [facility] Number: Effective Repository Date:2018-02-10 02/04/2018 ROBLES Nova [id number] [place] Insurance:CARESOURCEP HOVINGDOB: [facility] LOVE Number: [id number] Tingley Hospital [address]Xyn: [id number] Repository [phone] Date:2018-01-16P O -6 (HP) [address]ATTN: [place] [address]UD: 02/04/2018 Secondary NOT GIVENUNK [place] Insurance:SELF PAY [facility] Number: Effective Repository Date:2018-02-02 02/02/2018 RBOLES Nova [id number] [place] Insurance:CARESOURCEP [facility] Number: [id number] Tingley Hospital [address]Lwb: [id number] Repository Date:2018-01-27P O (HP) [address]ATTN: [place] [address]GL: 02/02/2018 Secondary NOT GIVENUNK [place] Insurance:SELF PAY [facility] Number: Effective Repository Date:2018-01-27 01/26/2018 ROBLES Nova [id number] [place] Insurance:CARESOURCEP [facility] RAM[facility]REZarmando Number: [id number] Tingley Hospital [address]Evd: [id number] Repository Date:2018-01-12P O (HP) [address]ATTN: [place] [address]YM: 01/26/2018 Secondary NOT GIVENUNK [place] Insurance:SELF PAY [facility] Number: Effective Repository Date:2018-01-12 01/19/2018 ROBLES Nova [id number] [place] Insurance:CARESOURCEP HOVINGDOB: [facility] LOVE Number: [id number] Tingley Hospital [address]Zzu: [id number] Repository Date:2018-01-12P O (HP) [address]ATTN: [place] [address]DO: 01/19/2018 Secondary NOT GIVENUNK [place] Insurance:SELF PAY [facility] Number: Effective Repository Date:2018-01-12 01/16/2018 ROBLES Hyde Primary ROBLES Nova [id number] FRI[place] Insurance:CARESOURCEP [facility] NOVA Number: [id number] Tingley Hospital [address]Twc: [id number] Repository Date:2018-01-06 O (HP) [address]ATTN: [place] [address]BP: 01/16/2018 Secondary NOT GIVENUNK [place] Insurance:SELF PAY [facility] Number: Effective Repository Date:2018-01-16 01/12/2018 ROBLES Hyde Primary ROBLES Nova [id number] FRI[place] Insurance:CARESOURCEP HOVINGDOB: [facility] LOVE Number: [id number] Tingley Hospital [address]894Vlj: [id number] Repository Date:2018-01-12 O (HP) [address]ATTN: [place] [address]EN: 01/12/2018 Secondary NOT GIVENUNK [place] Insurance:SELF PAY [facility] Number: Effective Repository Date:2018-01-12 01/10/2018 ROBLES Nova [id number] [place] Insurance:CARESOURCEP HOVINGDOB: [facility] LOVE Number: [id number] Tingley Hospital [address]Mky: [id number] Repository Date:2018-01-10P O (HP) [address]ATTN: [place] [address]RI: 01/10/2018 Secondary NOT GIVENUNK [place] Insurance:SELF PAY [facility] Number: Effective Repository Date:2018-01-10 01/06/2018 ROBLES Nova [id number] FRI[place] Insurance:CARESOURCEP HOVINGDOB: [facility] LOVE Number: [id number] Tingley Hospital [address]Cun: [id number] Repository Date:2018-01-02P O (HP) [address]ATTN: [place] [address]ET: 01/06/2018 Secondary NOT GIVENUNK [place] Insurance:SELF PAY [facility] Number: Effective Repository Date:2018-01-06 01/05/2018 ROBLES Nova [id number] [place] Insurance:CARESOURCEP HOVINGDOB: [facility] LOVE Number: [id number] Tingley Hospital [address]Fsl: [id number] Repository Date:2017-12-29P O (HP) [address]ATTN: [place] [address]PH: 01/05/2018 Secondary NOT GIVENUNK [place] Insurance:SELF PAY [facility] Number: Effective Repository Date:2017-12-29 01/02/2018 ROBLES Nova [id number] FRI[place] Insurance:CARESOURCEP HOVINGDOB: [facility] shonda NEWSOME Number: [id number] Tingley Hospital [address]Tug: [id number] Repository Date:2017-12-25P O (HP) [address]ATTN: [place] [address]RF: 01/02/2018 Secondary NOT GIVENUNK [place] Insurance:SELF PAY [facility] Number: Effective Repository Date:2018-01-02 01/02/2018 ROBLES Hyde Primary ROBLES Nova [id number] FRI[place] Insurance:CARESOURCEP HOVINGDOB: [facility] LOVE Number: [id number] Tingley Hospital [address]273Oey: [id number] Repository Date:2018-01-02P O (HP) [address]ATTN: [place] [address]OQ: 01/02/2018 Secondary NOT GIVENUNK [place] Insurance:SELF PAY [facility] Number: Effective Repository Date:2018-01-02 12/29/2017 ROBLES Nova [id number] FRI[place] Insurance:CARESOURCEP [facility] Number: [id number] Tingley Hospital [address]006Iry: [id number] Repository Date:2017-12-22P O (HP) [address]ATTN: [place] [address]QB: 12/29/2017 Secondary NOT GIVENUNK [place] Insurance:SELF PAY [facility] Number: Effective Repository Date:2017-12-22 12/25/2017 ROBLES Nova [id number] FRI[place] Insurance:CARESOURCEP [facility]INGD[facility] Number: [id number] Tingley Hospital 196[address]Whp: [id number] Repository Date:2017-12-22P O (HP) [address]ATTN: [place] [address]OP: 12/25/2017 Secondary NOT GIVENUNK [place] Insurance:SELF PAY [facility] Number: Effective Repository Date:2017-12-25 12/22/2017 ROBLES Nova [id number] FRI[place] Insurance:CARESOURCEP [facility]OVINGDOB: [facility] Number: [id number] Tingley Hospital [address]Grg: [id number] Repository Date:2017-12-19P O (HP) [address]ATTN: [place] [address]ZR: 12/22/2017 Secondary NOT GIVENUNK [place] Insurance:SELF PAY [facility] Number: Effective Repository Date:2017-12-19 12/17/2017 ROBLES Nova [id number] FRI[place] Insurance:CARESOURCEP HOVINGDOB: [facility]onda LOVE Number: [id number] Tingley Hospital [address]Ldt: [id number] Repository Date:2017-11-27P O (HP) [address]ATTN: [place] [address]DS: 12/17/2017 Secondary NOT GIVENUNK [place] Insurance:SELF PAY [facility] Number: Effective Repository Date:2017-11-27 12/17/2017 ROBLES Hyde Primary ROBLES Nova [id number] FRI[place] Insurance:CARESOURCEP HOVINGDOB: [facility] sh[facility] LOVE Number: [id number] Tingley Hospital 10382Fcm: [id number] Repository Date:2017-11-27P O (HP) [address]ATTN: [place] [address]GP: 12/17/2017 Secondary NOT GIVENUNK [place] Insurance:SELF PAY [facility] Number: Effective Repository Date:2017-12-16 12/15/2017 ROBLES Nova [id number] FRI[place] Insurance:CARESOURCEP HOVINGDOB: [facility] LOVE Number: [id number] Tingley Hospital [address]Dxd: [id number] Repository Date:2017-11-27P O (HP) [address]ATTN: [place] [address]FI: 12/15/2017 Secondary NOT GIVENUNK [place] Insurance:SELF PAY [facility] Effective Repository Date:2017-12-15 11/12/2017 ROBLES [id number] Primary ROBLES HOVINGDOB: [place] FRIAR TUCK Insurance:CARESOURCEP [id number], [place] olselect [facility] Number: Hospital [id number]: 330 [id number] Repository [phone] (HP) Date:2017-10-08P O [address]ATTN: [place] [address]XB: 11/12/2017 Secondary NOT GIVENUNK [place] Insurance:SELF PAY [facility] Number: Effective Repository Date:2017-10-08 10/30/2017 ROBLES [id number] Primary ROBLES HOVINGDOB: [place] FRIAR TUCK Insurance:CARESOURCEP [id number] Number: Hospital [address]Wwh: 330 [id number] Repository [phone] (HP) Date:2017-10-30P O [address]ATTN: [place] [address]YI: 10/30/2017 Secondary NOT GIVENUNK Rohini Insurance:SELF PAY [facility] Number: Effective Repository Date:2017-10-30 10/09/2017 Robles [id number] Primary Robles HovingDOB: [place] Friar Tuck Insurance:CARESOURCEP [id number] Health Number: Hospital [address]Dna: 330 [id number] Repository [phone] (HP) Date:2016-03-29P O [address]ATTN: [place] [address]PC: 10/09/2017 Secondary NOT GIVENUNK [place] Insurance:SELF PAY [facility] Number: Effective Repository Date:2017-09-29 10/08/2017 ROBLES [id number] Primary ROBLES HOVINGDOB: [place] FRIAR TUCK Insurance:CARESOURCEP [id number] [place] [facility]oselect [facility] Number: Hospital [address]Oxf: (468) [id number] Repository [phone] () Date:2017-09-24P O [address]ATTN: [place] [address]JR: 10/08/2017 Secondary NOT GIVENUNK Rohini Insurance:SELF PAY [facility] Number: Effective Repository Date:2017-09-24
== END ==
PROVIDERS: Family Provider Student in an Organized Health Care Education/Training Program; PCP Student in an Organized Health Care Education/Training Program; Referring Provider Student in an Organized Health Care Education/Training Program; Visit Provider Student in an Organized Health Care Education/Training Program
DX: E03.9 Hypothyroidism, unspecified (principal)
CPT/HCPCS: 36415; 84439; 84443

== ENCOUNTER 2018-08-31 08:17 | Outpatient (RCR) | payer MEDICARE, MEDICAID, SELFPAY ==
[2018-08-29 01:21] VITALS: BP 154/80; PULSE 110; RESP 20; TEMP 36.6
== END 2018-09-28 23:59 ==
LOC: WC 08:17
PROVIDERS: Family Provider Student in an Organized Health Care Education/Training Program; PCP Student in an Organized Health Care Education/Training Program; Referring Provider Surgery; Visit Provider Surgery
DX: Z09 Encounter for follow-up examination after completed treatment for conditions other than malignant neoplasm (principal)

== ENCOUNTER 2018-09-09 11:33 | Inpatient (IN) | payer MEDICARE, MEDICAID, SELFPAY ==
--- NOTE | 2018-09-07 23:59 | HP.PCM_ITS ---
History and Physical Date of Admission: 09/08/18 HISTORY OF PRESENT ILLNESS 48 year old woman comes in today for further evaluation breast reconstruction after undergoing completion mastectomy right breast in 04/14. She has a history of recurrent breast infections bilaterally. Most recently she had developed MRSA in the right breast. She has had multiple operative drainage procedures both before and after her bilateral breast reduction mammaplasty in 10/15. She denies fever at present. She started the breast reconstruction process on 12/16 where she underwent 1st stage delayed right breast reconstruction with placement of submuscular saline tissue pediatric neurologist (800 ml) and placement DermACELL decellularized dermis graft (160 cm2). She tolerated the tissue expansion. On 05/05/18, she then underwent the next stage in the breast reconstruction process which was delayed right breast reconstruction with removal of saline tissue pediatric neurologist with replacement cohesive gel implant (800 ml) and placement of Alloderm acellular dermal matrix graft inferolateral sling (132 cm2) and revision reconstructed right breast with excision nonhealing ulcer and excess mastectomy skin scar contour deformity. A couple of weeks later she developed an infection of the right breast implant and it was removed. The wound was left open with aggressive wound care with the VAC as well as with antibiotics. She presents today for further excisional debridement with skin grafting and/or complex secondary wound closure. PAST MEDICAL HISTORY: Grave's disease, s/p thyroidectomy complete, 11/2001 hypothyroidism 2001 Ovarian cyst HTN Metabolic syndrome hypertriglyceridemia Obesity Seasonal allergy Breast lump/cyst Anxiety depression Recurrent infected ulcer left breast abscess right breast anemia compromised bilateral breast reduction nipple grafts nonhealing surgical wound right lateral breast and right medial breast and Tzone right breast recurrent infected nonhealing MRSA ulcer right breast MRSA Acquired absence right breast Disproportion reconstructed breasts PAST SURGICAL HISTORY: complete hysterectomy 02/2007 benign reason (ovarian cyst, and dysfunctional uterine bleeding), on HRT for one year after hysterectomy ligation fallopian tube - 2000 complete thyroidectomy due to grave's disease 11/2001 x 2 09/1998, 01/2001 tonsillectomy 12/2003 Gastric bypass due to severe obesity 04/10/10 [place] 158lbs loss. Incisional hernia repair 07/03/10 panniculectomy 04/2013 hernia repair with mesh - 2014 incision and drainage breast abscess - 04/12 and 08/13 surgical preparation left breast with mastotomy, and incision and drainage and excisional debridement recurrent left breast infection ulcer with 3 cm partial secondary wound closure - 11/21/15 excisional debridement nonhealing recurrent infected ulcer left breast at medial periareolar area with complex secondary wound closure - 12/28/15 excisional debridement nonhealing recurrent infected ulcer left breast at medial periareolar area with complex secondary wound closure - 04/04/16 mastotomy right breast with incision and drainage abscess and excision with partial mastectomy - 06/07/16 Bilateral breast reduction mammaplasty with bilateral free nipple graft reconstruction - 10/01/16 Surgical preparation revision right breast reconstruction with excisional debridement nonhealing surgical wounds lateral aspect and medial aspect with secondary wound closure and excisional debridement compromised graft ulceration nipple area and nonhealing surgical wound Tzone area with FTSG from right lateral breast (25 cm2) - 11/21/16 Surgical preparation right breast with incison and drainage and excisional debridement nonhealing infected nipple graft ulcer (63 cm2) - 01/10/17 Excisional debridement recurrent nonhealing infected MRSA ulcer right breast and compromised skin graft right nipple with completion mastectomy - 04/18/17 Incision and drainage right mastectomy MRSA wound infection - 05/02/17 1st stage delayed right breast reconstruction with placement of submuscular saline tissue pediatric neurologist (800 ml) and placement DermACELL decellularized dermis graft (160 cm2) - 12/16/17 Delayed right breast reconstruction with removal of saline tissue pediatric neurologist with replacement cohesive gel implant (800 ml) and placement of Alloderm acellular dermal matrix graft inferolateral sling (132 cm2) and revision reconstructed right breast with excision nonhealing ulcer and excess mastectomy skin scar contour deformity - 05/05/18 Revision right breast reconstruction with incision and drainage and excisional debridement abscess with capsulectomy and removal infected breast implant - 05/19/18 MEDICATIONS: Pamelor. MVI. Synthroid. Vitamin B12. Celexa. Vitamin D3. Wellbutrin. Vitamin E. Iron supplements. B Complex with Vitamin C. ALLERGIES: Codeine. Penicillin. NSAID's. FAMILY HISTORY: Father (biol.) - Has Family History of Hypertension PGM - Has Family History of Diabetes PGM - Has Family History of Heart Disease Mother (biol.) - Has Family History of Asthma Brother (full) - Has Family History of Asthma Father (biol.) - Has Family History of Depression negative for breast cancer. Heart disease. Thyroid cancer. Parkinson's disease. SOCIAL HISTORY: Patient was smoking up to /2-1ppd x 20 years. She has recently quit. Alcohol Use - no Drug Use - no Regular Exercise - no single, but live with partner for 12 years, have two children together, one son, one girl age 11 and 9, son has Asberger patient does not use aspirin. patient does not use ibuprofen. REVIEW OF SYSTEMS: General - Denies fever, fatigue and weakness. Had 150 lb weight loss after gastric bypass in 2009. Eyes - Denies eye pain. ENT - Denies nasal congestion and sore throat. Had thyroidectomy. Had tonsillectomy. CV - Denies chest pain or discomfort, fatigue, lightheadedness and shortness of breath with exertion. Resp - Denies cough and shortness of breath. Patient is a former smoker. GI - Denies nausea, vomiting, diarrhea and constipation. Gastric bypass due to severe obesity 158lbs loss. - Denies blood in urine and urinary frequency. Had hysterectomy MS - Complains of back pain. Denies joint pain, stiffness, muscle weakness and arthritis. Derm - Denies suspicious lesions and skin cancer. Neuro - Denies headaches and numbness. Psych - Complains of anxiety and depression. Endo - Denies excessive urination and excessive thirst. Has had recurrent breast infections. Heme - Denies bleeding and abnormal bruising. PHYSICAL EXAMINATION: General: well developed, well nourished, in no acute distress. Bra size was 42 D prior to the breast reduction. Head: normocephalic and atraumatic. Eyes: PERRL/EOM intact, conjunctiva and sclera clear. Neck: no masses, thyromegaly, or abnormal cervical nodes. Breasts: Left breast is well healed with vertical and horizontal incisions. Good shape and contour left breast. Right breast mastectomy ulcer is clean with granulation tissue. Minimal tenderness noted. Measures 5 x 14 x 0.1 cm. Lungs: clear bilaterally to auscultation. Heart: regular rate and rhythm. Msk: no bony tenderness. Pulses: pulses normal in all 4 extremities. Extremities: no clubbing, cyanosis, edema, or deformity noted with normal full range of motion of all joints. Neurologic: cranial nerves II-XII grossly intact. Skin: no rashes. Cervical Nodes: no significant adenopathy. Axillary Nodes: no significant adenopathy. Psych: alert and cooperative; normal mood and affect; normal attention span and concentration. ASSESSMENT 1. Nonhealing ulcer right breast reconstruction. 2. Recurrent infections bilateral breasts. 3. Bilateral macromastia s/p breast reduction mammaplasty. 4. s/p completion mastectomy right breast. 5. Acquired absence right breast. 6. Disproportion reconstructed breasts. 7. Former smoker. 8. MRSA. 9. Deformity right breast reconstruction s/p removal of infected breast implant. PLAN With her history of MRSA, will treat her perioperatively with Vancomycin. Will continue her next stage in her breast reconstruction process with excisional debridement and skin grafting and/or complex secondary wound closure. removal of the saline tissue pediatric neurologist with replacement cohesive gel implant. Tissue that is removed will be sent to Pathology for analysis to rule out carcinoma and to Microbiology for culture. Anticipate placement of a PICC line for IV antibiotics because of her history of MRSA and her extensive history of breast infections. Will have drains in for several days. Will keep her head elevated postoperatively. Surgery will be done under general anesthesia with a surgical observation overnight stay in the hospital. After surgery, if there is compromise with healing of the breast flaps, she can continue her HBO treatments. The patient was informed of the risks and complications of the procedure including alternatives to surgery. These were discussed with the patient personally. The patient voices understanding and wishes to proceed.
[2018-09-08] VITALS (7 sets, daily range): BP systolic 110–145; BP diastolic 72–95; PULSE 81–97; RESP 16–18; TEMP 36.8–37.3; O2SAT 92–97; BMI 45.6; BMI 45.3
[2018-09-08] MEDS: Vancomycin IV 1,000 MG/200 ML BAG 200 MG IV (13:54)
--- NOTE | 2018-09-08 14:40 | UL_PTH ---
PATIENT: ROBLES CARRASQUILLO LOC: [facility] U#:[id number] AGE/SX: 48/F ROOM: IA310 RE09/09/[address]: Dr. Sean Stevenson MD : 1970 BED: 1 DIS: 09/10/2018 SPEC #: [id number] RECD: 09/09/18 11:02 STATUS: HAMIDA RECadence #: [id number] ROSE: 09/08/18 14:[address]: Sean Stevenson DEPT: SURGICAL PATHOLOGY RECD BY: Evin Centeno ENTERED: 09/09/18 11:32 SP TYPE: ULCER OTHR DR: Dr. Eduardo Peters, DO Tissues: Right breast, NOS Procedures: Surgery Specimen Level III HEADER OPERATION: Right breast ulcer excisional debridement, secondary wound PRE-OP DIAGNOSIS: Nonhealing ulcer right breast reconstruction; recurrent infections bilateral breasts TISSUE SUBMITTED: Nonhealing right breast ulcer soft tissue MICROSCOPIC DIAGNOSIS Nonhealing right breast ulcer soft tissue, excisional debridement: Pieces of skin with underlying tissue with focal ulceration and associated acute and chronic inflammation and fibrosis. JOHN:latha 09/10/18 MICROSCOPIC DESCRIPTION Slides are reviewed. GROSS DESCRIPTION Received in fixative is one container labeled with the patient's name and designated nonhealing right breast ulcer soft tissue. The specimen consists of multiple pieces of skin with underlying tissue that in aggregate measure 15 x 12 x 4 cm. The skin surface shows a focal area of ulceration. No mass lesion is identified. Unix Engineer sections are submitted in three cassettes. / JOHN:latha 09/09/18 TC:2 CPT: 93823
--- NOTE | 2018-09-08 18:20 | PCM.IMDPSTOP ---
Immediate Post-Op Note Date of Procedure: 09/08/18 Primary Surgeon/Physician: Sean Stevenson weatherization field technician: Bubba Ramos. Pre-Operative Diagnosis: 1. Nonhealing ulcer right breast reconstruction. 2. Recurrent infections bilateral breasts. 3. Bilateral macromastia s/p breast reduction mammaplasty. 4. s/p completion mastectomy right breast. 5. Acquired absence right breast. 6. Disproportion reconstructed breasts. 7. Former smoker. 8. MRSA. 9. Deformity right breast reconstruction s/p removal of infected breast implant. Post-Operative Diagnosis: Same. Surgery/Procedure Performed:: Surgical preparation right breast reconstruction with excisional debridement nonhealing MRSA ulcer and complex secondary wound closure. Description of Surgical Findings:: 48 year old woman comes in today for further evaluation breast reconstruction after undergoing completion mastectomy right breast in 04/14. She has a history of recurrent breast infections bilaterally. Most recently she had developed MRSA in the right breast. She has had multiple operative drainage procedures both before and after her bilateral breast reduction mammaplasty in 10/15. She denies fever at present. She started the breast reconstruction process on 12/16/17 where she underwent 1st stage delayed right breast reconstruction with placement of submuscular saline tissue vice president network development (800 ml) and placement DermACELL decellularized dermis graft (160 cm2). She tolerated the tissue expansion. On 05/05/18, she then underwent the next stage in the breast reconstruction process which was delayed right breast reconstruction with removal of saline tissue vice president network development with replacement cohesive gel implant (800 ml) and placement of Alloderm acellular dermal matrix graft inferolateral sling (132 cm2) and revision reconstructed right breast with excision nonhealing ulcer and excess mastectomy skin scar contour deformity. A couple of weeks later she developed an infection of the right breast implant and it was removed. The wound was left open with aggressive wound care with the VAC as well as with antibiotics. Today the patient underwent surgical preparation right breast reconstruction with excisional debridement nonhealing MRSA ulcer and complex secondary wound closure. I used Kiya absorbable hemostat, (I used 2 vials). Reference Number - [id number]. Lot Number - [id number]. Expiration - April 25, 2023. Estimated Blood Loss: 200 ml. Specimen's removed: 1. Nonhealing MRSA ulcer right breast to Pathology and Microbiology. 2. MRSA Wound DNA by PCR. Drains: Elijah. Type of Anesthesia:: General - Admit VTE Documentation VTE Present on Admission: No VTE Mechan Device Prophylaxis: SCD's VTE Pharm Prophylaxis ordered?: Yes
[2018-09-08] MEDS: Acetaminophen 500 MG Tablet 1000 MG PO (20:16)
[2018-09-08] MEDS: diazePAM 5 MG Tablet PO (20:16)
[2018-09-08 20:43] LABS: M R Staph aureus DNA By PCR Negative (Negative); Probe Check PASS; Specimen Processing Control PASS; Staph aureus DNA By PCR NEGATIVE (Negative)
--- NOTE | 2018-09-08 20:57 | PCM.OPRPT ---
Report of Operation Date of Procedure: 09/08/18 Pre-Operative Diagnosis: 1. Nonhealing ulcer right breast reconstruction. 2. Recurrent infections bilateral breasts. 3. Bilateral macromastia s/p breast reduction mammaplasty. 4. s/p completion mastectomy right breast. 5. Acquired absence right breast. 6. Disproportion reconstructed breasts. 7. Former smoker. 8. MRSA. 9. Deformity right breast reconstruction s/p removal of infected breast implant. Post-Operative Diagnosis: Same. Surgery/Procedure Performed:: Surgical preparation right breast reconstruction with excisional debridement nonhealing MRSA ulcer and complex secondary wound closure. Description of Surgical Findings:: 48 year old woman comes in today for further evaluation breast reconstruction after undergoing completion mastectomy right breast in 04/14. She has a history of recurrent breast infections bilaterally. Most recently she had developed MRSA in the right breast. She has had multiple operative drainage procedures both before and after her bilateral breast reduction mammaplasty in 10/15. She denies fever at present. She started the breast reconstruction process on 12/16/17 where she underwent 1st stage delayed right breast reconstruction with placement of submuscular saline tissue supervisor electronic coils (800 ml) and placement DermACELL decellularized dermis graft (160 cm2). She tolerated the tissue expansion. On 05/05/18, she then underwent the next stage in the breast reconstruction process which was delayed right breast reconstruction with removal of saline tissue supervisor electronic coils with replacement cohesive gel implant (800 ml) and placement of Alloderm acellular dermal matrix graft inferolateral sling (132 cm2) and revision reconstructed right breast with excision nonhealing ulcer and excess mastectomy skin scar contour deformity. A couple of weeks later she developed an infection of the right breast implant and it was removed. The wound was left open with aggressive wound care with the VAC as well as with antibiotics. Patient was informed of the risks and complications of the procedure including alternatives to surgery. These were discussed with the patient personally. Patient voices understanding and wishes to proceed. I used Kiya absorbable hemostat, (I used 2 vials). Reference Number - [id number]. Lot Number - [id number]. Expiration - April 25, 2023. wagon driver: Bubba Ramos. Type of Anesthesia:: General Specimen's removed: 1. Nonhealing MRSA ulcer right breast to Pathology and Microbiology. 2. MRSA Wound DNA by PCR. Drains: Elijah. Estimated Blood Loss (mL): 200 ml. Description of Procedure: Patient was taken to OR in supine position and was placed under general anesthesia. The right breast was prepped and draped in the usual fashion. SCD's were placed for DVT prophylaxis. Perioperative antibiotics were given intravenously. Using xylocaine with epinephrine, the right breast ulcer was infiltrated. After waiting 5 minutes for the anesthetic to take effect, I proceeded with excisional debridement of this nonhealing ulcer. The skin edges were curled in prior to the excision which will aid in wound closure. The base of the ulcer on the chest wall muscle was quite dense and thick. With her history of MRSA, the entire thick dense scar tissue was excised. Hemostasis was obtained with electrocautery. The debrided tissue was sent to Pathology for analysis to rule out carcinoma and to Microbiology for culture. MRSA Wound DNA by PCR was also done. She was treated perioperatively with Vancomycin. I freed up the breast skin flaps at the level of the chest wall to aid in wound closure. The wound was irrigated with saline. I placed a size 15 Elijah drain through a separate stab incision laterally. It was secured to the skin with 3-0 Nylon suture. I then sprayed Kiya absorbable hemostat into the wound to minimize seroma formation. I used 2 vials. The wound was then closed in a complex layered fashion with 2-0 Vicryl figure of eight interrupted sutures for the underlying muscle and Georgina's fascia. The deep dermis and subcutaneous tissue was approximated with 3-0 Monocryl interrupted sutures. The skin was approximated with 3-0 V lock unidirectional barbed running subcuticular suture. This was followed by Histoacryl skin tissue adhesive. Dry Kerlix gauze dressing was applied followed by compression LILLY wrap. Patient tolerated the procedure well and was sent to PACU in satisfactory condition. Patient will be sent upstairs for continued postop care. Will continue the Vancomycin and have a PICC line placed tomorrow. Grafts/Implants Used: None. - Complications None. - Admit VTE Documentation VTE Present on Admission: No VTE Mechan Device Prophylaxis: SCD's VTE Pharm Prophylaxis ordered?: Yes Code Visit Surgery Charges CPT - 66480 ICD-10 - L98.492, N61.1, N65.1, N65.0, Z86.14, Z90.11, Z40.01, Z98.86, T85.79xS, Z87.891 36413 L98.492, N61.1, N65.1, N65.0, Z86.14, Z90.11, Z40.01, Z98.86, T85.79xS, Z87.891
[2018-09-08 21:31] LABS: Anion Gap 10 (5-15); BUN 9 mg/dL (7-18); BUN/Creat Ratio 11.1 RATIO (10-20); Calcium,Total 8.3 mg/dL (8.5-10.1); Chloride 103 mmol/L (98-107); Creatinine, Serum 0.81 mg/dL (0.55-1.02); EST Glomerular Filtration Rate 80 mL/min (>60); Est Glom Filt Rate - Afr Amer 97 mL/min (>60); Estimated Creatinine Clearance 81.24 ml/min; Glucose 173 mg/dL (74-106); Potassium 4.4 mmol/L (3.5-5.1); Sodium Level 136 mmol/L (136-145)
--- NOTE | 2018-09-08 21:40 | PCM.RX.CS ---
<Gabriel Lee - Last Filed: 09/08/18 21:40> Consult Pharmacy has been consulted to manage selected antiobiotic: Vancomycin Type of Consult: New start Suspected Infection: Skin/Soft tissue Labs: Sodium 136 mmol/L (136-145) 09/08/18 20:57 Potassium 4.4 mmol/L (3.5-5.1) 09/08/18 20:57 Chloride 103 mmol/L (98-107) 09/08/18 20:57 Carbon Dioxide 23.0 mmol/L (21.0-32.0) 09/08/18 20:57 Anion Gap 10 (5-15) 09/08/18 20:57 BUN 9 mg/dL (7-18) 09/08/18 20:57 Creatinine 0.81 mg/dL (0.55-1.02) 09/08/18 20:57 Est GFR (MDRD) Af Amer 97 mL/min (>60) 09/08/18 20:57 Est GFR (MDRD) Non-Af 80 mL/min (>60) 09/08/18 20:57 BUN/Creatinine Ratio 11.1 RATIO (10-20) 09/08/18 20:57 Glucose 173 mg/dL (74-106) H 09/08/18 20:57 Weight used for dosin lb 3.067 oz Estimated Creatinine Clearance: 81.24 Goal Trough: 10-15 mcg/mL Pharmacy Plan for Drug Dosing: Pharmacy Service will continue to monitor and adjust dosing as required. Medications Vancomycin HCl 1,250 mg/ (Sodium Chloride) 275 mls @ 167 mls/hr IV Q12H AMANDO Discontinued Medications Vancomycin HCl (Vancomycin) 1,000 mg in 200 mls @ 200 mls/hr IV PREOP ONE Stop: 09/08/18 13:39 Last Admin: 09/08/18 13:54 Dose: 200 mls/hr Follow-Up Labs: Trough Vancomycin Labs to be done on [date and time ordered]: 09/10 @ 0200 <Sean Stevenson - Last Filed: 09/10/18 00:08> Consult Labs: Sodium 140 mmol/L (136-145) 09/09/18 05:16 Potassium 4.1 mmol/L (3.5-5.1) 09/09/18 05:16 Chloride 105 mmol/L (98-107) 09/09/18 05:16 Carbon Dioxide 26.0 mmol/L (21.0-32.0) 09/09/18 05:16 Anion Gap 9 (5-15) 09/09/18 05:16 BUN 7 mg/dL (7-18) 09/09/18 05:16 Creatinine 0.53 mg/dL (0.55-1.02) L 09/09/18 05:16 Est GFR (MDRD) Af Amer 161 mL/min (>60) 09/09/18 05:16 Est GFR (MDRD) Non-Af 133 mL/min (>60) 09/09/18 05:16 BUN/Creatinine Ratio 13.3 RATIO (10-20) 09/09/18 05:16 Glucose 97 mg/dL (74-106) 09/09/18 05:16 Microbiology: Microbiology 09/08/18 17:26 Tissue - Breast Gram Stain - Final 09/08/18 17:26 Tissue - Breast Wound Culture - Preliminary No growth-Final to follow Pharmacy Plan for Drug Dosing: Pharmacy Service will continue to monitor and adjust dosing as required.
[2018-09-08] MEDS: HYDROmorphone 1 MG/ML Syringe IV (21:52)
[2018-09-08] MEDS: Iron Polysaccharide Complex 150 MG CAPSULE PO (21:57)
[2018-09-08] MEDS: Nortriptyline 25 MG Capsule 50 MG PO (21:57)
[2018-09-08] MEDS: Docusate Sodium 100 MG Capsule PO (21:57)
[2018-09-08] MEDS: Lactated Ringers 1,000 ML 60 ML IV (23:35)
[2018-09-09] MEDS: HYDROmorphone 2 MG TABLET PO ×4 (00:08→11:30)
[2018-09-09 00:15] VITALS: BP 134/73; PULSE 81; RESP 16; TEMP 37; O2SAT 97
[2018-09-09] MEDS: HYDROmorphone 1 MG/ML Syringe IV ×5 (02:04→23:21)
[2018-09-09 02:09] VITALS: BP 148/73; PULSE 79; RESP 16; TEMP 36.9; O2SAT 95
[2018-09-09] MEDS: Enoxaparin 40 MG/0.4 ML Syringe SC (05:53)
[2018-09-09] MEDS: Levothyroxine 100 MCG Tablet 200 MCG PO (05:53)
[2018-09-09 06:06] LABS: Hematocrit 35.2 % (37-47); Hemoglobin 10.5 g/dl (12.0-15.0); Mean Corp Hgb Conc 29.8 g/gl (32-36); Mean Corpuscular Hgb 26.4 pg (27.0-32.0); Mean Corpuscular Volume 88.7 fL (81-99); Mean Platelet Vol. 9.9 fl (6.2-12.0); Platelet Count 318 K/mm3 (150-450); RBC Distribution Width CV 15.3 % (11.6-14.6); RBC Distribution Width SD 48.9 fl (35.1-43.9); Red Blood Count 3.97 M/mm3 (4.2-5.4); White Blood Count 9.2 K/mm3 (4.4-11.0)
[2018-09-09 06:12] LABS: Scan Indicated on CBC? Y/N NO
[2018-09-09 06:28] LABS: Anion Gap 9 (5-15); BUN 7 mg/dL (7-18); BUN/Creat Ratio 13.3 RATIO (10-20); Calcium,Total 8.3 mg/dL (8.5-10.1); Chloride 105 mmol/L (98-107); Creatinine, Serum 0.53 mg/dL (0.55-1.02); EST Glomerular Filtration Rate 133 mL/min (>60); Est Glom Filt Rate - Afr Amer 161 mL/min (>60); Estimated Creatinine Clearance 124.16 ml/min; Glucose 97 mg/dL (74-106); Potassium 4.1 mmol/L (3.5-5.1); Prealbumin 25.1 mg/dL (20.0-40.0); Sodium Level 140 mmol/L (136-145)
[2018-09-09 07:50] VITALS: BP 123/71; PULSE 77; RESP 18; TEMP 36.3; O2SAT 99
[2018-09-09] MEDS: diazePAM 5 MG Tablet PO ×3 (08:35→22:19)
--- NOTE | 2018-09-09 08:48 | PCM.RX.CS ---
Consult Pharmacy has been consulted to manage selected antiobiotic: Vancomycin Type of Consult: New start Suspected Infection: Skin/Soft tissue Labs: Sodium 140 mmol/L (136-145) 09/09/18 05:16 Potassium 4.1 mmol/L (3.5-5.1) 09/09/18 05:16 Chloride 105 mmol/L (98-107) 09/09/18 05:16 Carbon Dioxide 26.0 mmol/L (21.0-32.0) 09/09/18 05:16 Anion Gap 9 (5-15) 09/09/18 05:16 BUN 7 mg/dL (7-18) 09/09/18 05:16 Creatinine 0.53 mg/dL (0.55-1.02) L 09/09/18 05:16 Est GFR (MDRD) Af Amer 161 mL/min (>60) 09/09/18 05:16 Est GFR (MDRD) Non-Af 133 mL/min (>60) 09/09/18 05:16 BUN/Creatinine Ratio 13.3 RATIO (10-20) 09/09/18 05:16 Glucose 97 mg/dL (74-106) 09/09/18 05:16 Estimated Creatinine Clearance: 128 kg Goal Trough: 10-15 mcg/mL Pharmacy Plan for Drug Dosing: Patient has been admitted on vancomycin frequently in the past. Typical effective dose is 1750mg IV q12h. Recommend to increase and adjust trough check. Pharmacy Service will continue to monitor and adjust dosing as required. Follow-Up Labs: Trough Vancomycin - 09/10 @ 0930
[2018-09-09] MEDS: Ascorbic Acid 500 MG Tablet 1000 MG PO ×2 (08:59→16:07)
[2018-09-09] MEDS: Multivitamins,Ther W-Minerals Tablet 1 TABLET PO (09:00)
[2018-09-09] MEDS: Calcium Carb/Vitamin D 1 TABLET Tablet PO ×2 (09:00→16:07)
[2018-09-09] MEDS: Iron Polysaccharide Complex 150 MG CAPSULE PO ×2 (09:05→22:19)
[2018-09-09] MEDS: Docusate Sodium 100 MG Capsule PO ×2 (09:05→22:19)
[2018-09-09] MEDS: buPROPion (XL) 150 MG TABLET.XL 450 MG PO (09:06)
[2018-09-09] MEDS: FLUoxetine 20 MG Capsule 40 MG PO (09:06)
--- NOTE | 2018-09-09 12:57 | OP.PCM_ITS ---
Report of Operation Date of Procedure: 09/08/18 Pre-Operative Diagnosis: 1. Nonhealing ulcer right breast reconstruction. 2. Recurrent infections bilateral breasts. 3. Bilateral macromastia s/p breast reduction mammaplasty. 4. s/p completion mastectomy right breast. 5. Acquired absence right breast. 6. Disproportion reconstructed breasts. 7. Former smoker. 8. MRSA. 9. Deformity right breast reconstruction s/p removal of infected breast implant. Post-Operative Diagnosis: Same. Surgery/Procedure Performed:: Surgical preparation right breast reconstruction with excisional debridement nonhealing MRSA ulcer and complex secondary wound closure. Description of Surgical Findings:: 48 year old woman comes in today for further evaluation breast reconstruction after undergoing completion mastectomy right breast in 04/14. She has a history of recurrent breast infections bilaterally. Most recently she had developed MRSA in the right breast. She has had multiple operative drainage procedures both before and after her bilateral breast reduction mammaplasty in 10/15. She denies fever at present. She started the breast reconstruction process on 12/16/17 where she underwent 1st stage delayed right breast reconstruction with p lacement of submuscular saline tissue software development advisor (800 ml) and placement DermACELL decellularized dermis graft (160 cm2). She tolerated the tissue expansion. On 05/05/18, she then underwent the next stage in the breast reconstruction process which was delayed right breast reconstruction with removal of saline tissue software development advisor with replacement cohesive gel implant (800 ml) and placement of Alloderm acellular dermal matrix graft inferolateral sling (132 cm2) and revision reconstructed right breast with excision nonhealing ulcer and excess mastectomy skin scar contour deformity. A couple of weeks later she developed an infection of the right breast implant and it was removed. The wound was left open with aggressive wound care with the VAC as well as with antibiotics. Patient was informed of the risks and complications of the procedure including alternatives to surgery. These were discussed with the patient personally. Patient voices understanding and wishes to proceed. I used Kiya absorbable hemostat, (I used 2 vials). Reference Number - [id number]. Lot Number - [id number]. Expiration - April 25, 2023. stone crusher operator: Bubba Ramso. Type of Anesthesia:: General Specimen's removed: 1. Nonhealing MRSA ulcer right breast to Pathology and Microbiology. 2. MRSA Wound DNA by PCR. Drains: Elijah. Estimated Blood Loss (mL): 200 ml. Description of Procedure: Patient was taken to OR in supine position and was placed under general anesthesia. The right breast was prepped and draped in the usual fashion. SCD's were placed for DVT prophylaxis. Perioperative antibiotics were given intravenously. Using xylocaine with epinephrine, the right breast ulcer was infiltrated. After waiting 5 minutes for the anesthetic to take effect, I proceeded with excisional debridement of this nonhealing ulcer. The skin edges were curled in prior to the excision which will aid in wound closure. The base of the ulcer on the chest wall muscle was quite dense and thick. With her history of MRSA, the entire thick dense scar tissue was excised. Hemostasis was obtained with electrocautery. The debrided tissue was sent to Pathology for analysis to rule out carcinoma and to Microbiology for culture. MRSA Wound DNA by PCR was also done. She was treated perioperatively with Vancomycin. I freed up the breast skin flaps at the level of the chest wall to aid in wound closure. The wound was irrigated with saline. I placed a size 15 Elijah drain through a separate stab incision laterally. It was secured to the skin with 3-0 Nylon suture. I then sprayed Kiya absorbable hemostat into the wound to minimize seroma formation. I used 2 vials. The wound was then closed in a complex layered fashion with 2-0 Vicryl figure of eight interrupted sutures for the underlying muscle and Georgina's fascia. The deep dermis and subcutaneous tissue was approximated with 3-0 Monocryl interrupted sutures. The skin was approximated with 3-0 V lock unidirectional barbed running subcuticular suture. This was followed by Histoacryl skin tissue adhesive. Dry Kerlix gauze dressing was applied followed by compression LILLY wrap. Patient tolerated the procedure well and was sent to PACU in satisfactory condition. Patient will be sent upstairs for continued postop care. Will continue the Vancomycin and have a PICC line placed tomorrow. Grafts/Implants Used: None. - Complications None. - Admit VTE Documentation VTE Present on Admission: No VTE Mechan Device Prophylaxis: SCD's VTE Pharm Prophylaxis ordered?: Yes Code Visit Surgery Charges CPT - 00148 ICD-10 - L98.492, N61.1, N65.1, N65.0, Z86.14, Z90.11, Z40.01, Z98.86, T85.79xS, Z87.891 56983 L98.492, N61.1, N65.1, N65.0, Z86.14, Z90.11, Z40.01, Z98.86, T85.79xS, Z87.891
--- NOTE | 2018-09-09 12:57 | PCM.PN.SRG ---
Subjective: Postop #1 Complains of incisional pain. - Physical Exam General: Alert, Oriented x3 HEENT: PERRLA, EOMI Oral: Moist Mucosa Neck: Supple Abdomen: Soft, Non-Distended Skin: Incision - right breast incision is dry and intact. No clinical evidence of hematoma. Neurological: Cranial nerves II-XII grossly intact Psych/Mental Status: Normal Affect, Appropriate Vital Signs Temp Pulse Resp BP Pulse Ox 97.4 F L 77 18 123/71 H 99 09/09/18 07:50 09/09/18 07:50 09/09/18 07:50 09/09/18 07:50 09/09/18 07:50 Oxygen Delivery Method Room Air Weight: 282 lb 3.067 oz Body Mass Index (BMI) 45.3 Intake and Output for Last 24 Hours 09/07/18 09/08/18 09/09/18 23:59 23:59 23:59 Intake Total 1600 / 1600 1837 / 1837 Output Total 3515 / 3515 Balance 1600 / 1600 -1678 / -1678 Microbiology Past 72 Hours 09/08/18 17:26 Gram Stain - Final Tissue - Breast Wound Culture - Preliminary No growth-Final to follow Laboratory Tests Past 24 Hrs 09/08/18 09/08/18 09/09/18 17:28 20:57 05:16 WBC 9.2 RBC 3.97 L Hgb 10.5 L Hct 35.2 L MCV 88.7 MCH 26.4 L MCHC 29.8 L RDW 15.3 H RDW Differential 48.9 H Plt Count 318 MPV 9.9 Sodium 136 Potassium 4.4 Chloride 103 Carbon Dioxide 23.0 Anion Gap 10 BUN 9 Creatinine 0.81 Estim Creat Clear Calc 81.24 Est GFR (MDRD) Af Amer 97 Est GFR (MDRD) Non-Af 80 BUN/Creatinine Ratio 11.1 Glucose 173 H Calcium 8.3 L Prealbumin S.aureus Protein A PCR NEGATIVE MRSA (PCR) Negative 09/09/18 05:16 WBC RBC Hgb Hct MCV MCH MCHC RDW RDW Differential Plt Count MPV Sodium 140 Potassium 4.1 Chloride 105 Carbon Dioxide 26.0 Anion Gap 9 BUN 7 Creatinine 0.53 L Estim Creat Clear Calc 124.16 Est GFR (MDRD) Af Amer 161 Est GFR (MDRD) Non-Af 133 BUN/Creatinine Ratio 13.3 Glucose 97 Calcium 8.3 L Prealbumin 25.1 S.aureus Protein A PCR MRSA (PCR) Medical Necessity - Tobacco Use Smoking Status: Former smoker Tobacco Use: Cigarettes Assessment/Plan All Active Problems (Last Reviewed 11/13/17 @ 09:21 by Tiff Abdi) Breast implant removal status (Acute) Breast implant status (Acute) Infection of breast implant (Acute) Cellulitis of right breast (Acute) Septic shock (Acute) Infected wound (Acute) Open wound of right breast (Acute) 1. Nonhealing ulcer right breast reconstruction. 2. Recurrent infections bilateral breasts. 3. Bilateral macromastia s/p breast reduction mammaplasty. 4. s/p completion mastectomy right breast. 5. Acquired absence right breast. 6. Disproportion reconstructed breasts. 7. Former smoker. 8. MRSA. 9. Deformity right breast reconstruction s/p removal of infected breast implant. 10. s/p surgical preparation right breast reconstruction with excisional debridement nonhealing MRSA ulcer and complex secondary wound closure. Complains about incisional pain. Still needs IV analgesia. Right breast incision is dry and intact. No clinical evidence of hematoma. Continue Vancomycin. Operative cultures are pending. MRSA Wound DNA by PCR was negative. Arranging Home Health and an Infusion company for the Vancomycin at home. Prealbumin was 25.1. Encourage nutritional supplementation with protein to help the healing process. Continue chest wall binder for compression. Will wean to po analgesia for discharge. Anticipate discharge tomorrow when antibiotics have been set up for home. After discharge, followup office one week.
[2018-09-09 13:43] VITALS: BP 113/62; PULSE 88; RESP 18; TEMP 36.6; O2SAT 98
[2018-09-09] MEDS: DiphenhydrAMINE 25 MG Capsule 50 MG PO (18:08)
[2018-09-09 20:00] VITALS: BP 120/75; PULSE 84; RESP 16; TEMP 36.7; O2SAT 99
[2018-09-09] MEDS: 0.9% NaCl Peripheral Flush Adult/Peds IV (20:00)
[2018-09-09] MEDS: Lactated Ringers 1,000 ML 60 ML IV (20:00)
[2018-09-09] MEDS: Nortriptyline 25 MG Capsule 50 MG PO (22:18)
[2018-09-09] MEDS: Zolpidem Tartrate 5 MG Tablet PO (23:21)
--- NOTE | 2018-09-10 00:07 | NURSING ---
pt states her binder keeps rubbing on her skin so she tried to take it off and her right chest drsg came off. EDDIE drain is intact and draining, no bleeding noted, no redness noted on incision. abd drsg changed and binder applied back on with urban design consultant. pt states its more comfortable this time. instructed pt to call for help next time.
[2018-09-10 02:15] VITALS: BP 128/73; PULSE 76; RESP 16; TEMP 36.5; O2SAT 95
[2018-09-10 05:51] LABS: Hematocrit 32.7 % (37-47); Hemoglobin 9.9 g/dl (12.0-15.0); Mean Corp Hgb Conc 30.3 g/gl (32-36); Mean Corpuscular Hgb 27.1 pg (27.0-32.0); Mean Corpuscular Volume 89.6 fL (81-99); Mean Platelet Vol. 9.6 fl (6.2-12.0); Platelet Count 287 K/mm3 (150-450); RBC Distribution Width CV 15.3 % (11.6-14.6); Red Blood Count 3.65 M/mm3 (4.2-5.4); White Blood Count 6.5 K/mm3 (4.4-11.0)
[2018-09-10 05:53] LABS: Scan Indicated on CBC? Y/N NO
[2018-09-10 06:05] LABS: ALB/GLOB Ratio 0.8 RATIO (0.9-2.4); AST(SGOT) 14 U/L (15-37); Alanine Aminotransfer ALT/SGPT 19 U/L (13-56); Albumin, Serum 2.8 g/dL (3.2-5.0); Alkaline Phosphatase 68 U/L (45-117); Anion Gap 6 (5-15); BUN 13 mg/dL (7-18); BUN/Creat Ratio 24.6 RATIO (10-20); Calcium,Total 7.9 mg/dL (8.5-10.1); Chloride 106 mmol/L (98-107); Creatinine, Serum 0.53 mg/dL (0.55-1.02); EST Glomerular Filtration Rate 132 mL/min (>60); Est Glom Filt Rate - Afr Amer 160 mL/min (>60); Estimated Creatinine Clearance 124.16 ml/min; Globulin 3.3 g/dL (2.2-4.2); Glucose 89 mg/dL (74-106); Protein, Total 6.1 g/dL (6.4-8.2); Sodium Level 142 mmol/L (136-145)
[2018-09-10] MEDS: 0.9% NaCl Peripheral Flush Adult/Peds IV ×5 (06:25→13:20)
[2018-09-10] MEDS: HYDROmorphone 1 MG/ML Syringe IV ×2 (06:26→09:40)
[2018-09-10] MEDS: Enoxaparin 40 MG/0.4 ML Syringe SC (06:26)
[2018-09-10] MEDS: Levothyroxine 100 MCG Tablet 200 MCG PO (06:26)
[2018-09-10 07:35] VITALS: BP 125/65; PULSE 74; RESP 18; TEMP 36.4; O2SAT 97
[2018-09-10] MEDS: buPROPion (XL) 150 MG TABLET.XL 450 MG PO (08:27)
[2018-09-10] MEDS: FLUoxetine 20 MG Capsule 40 MG PO (08:28)
[2018-09-10] MEDS: Ascorbic Acid 500 MG Tablet 1000 MG PO (08:29)
[2018-09-10] MEDS: Docusate Sodium 100 MG Capsule PO (08:29)
[2018-09-10] MEDS: Calcium Carb/Vitamin D 1 TABLET Tablet PO (08:29)
[2018-09-10] MEDS: Multivitamins,Ther W-Minerals Tablet 1 TABLET PO (08:30)
[2018-09-10] MEDS: Iron Polysaccharide Complex 150 MG CAPSULE PO (08:30)
[2018-09-10] MEDS: diazePAM 5 MG Tablet PO ×2 (09:40→13:28)
[2018-09-10 10:00] LABS: Vancomycin, Trough Level 10.8 ug/mL (5.0-15.0)
--- NOTE | 2018-09-10 10:30 | PCM.RX.CS ---
Consult Pharmacy has been consulted to manage selected antiobiotic: Vancomycin Type of Consult: Follow-up Suspected Infection: Skin/Soft tissue Prior Doses of Antibiotics Received/Current Regimen: Vancomycin HCl 1,750 mg/ (Sodium Chloride) 535 mls @ 250 mls/hr IV Q12H AMANDO Last Admin: 09/10/18 09:38 Dose: 250 mls/hr Admin: 09/09/18 22:28 Dose: 250 mls/hr Admin: 09/09/18 10:04 Dose: 250 mls/hr Labs: Sodium 142 mmol/L (136-145) 09/10/18 05:37 Potassium 4.0 mmol/L (3.5-5.1) 09/10/18 05:37 Chloride 106 mmol/L (98-107) 09/10/18 05:37 Carbon Dioxide 30.0 mmol/L (21.0-32.0) 09/10/18 05:37 Anion Gap 6 (5-15) 09/10/18 05:37 BUN 13 mg/dL (7-18) 09/10/18 05:37 Creatinine 0.53 mg/dL (0.55-1.02) L 09/10/18 05:37 Est GFR (MDRD) Af Amer 160 mL/min (>60) 09/10/18 05:37 Est GFR (MDRD) Non-Af 132 mL/min (>60) 09/10/18 05:37 BUN/Creatinine Ratio 24.6 RATIO (10-20) H 09/10/18 05:37 Glucose 89 mg/dL (74-106) 09/10/18 05:37 Vancomycin Trough 10.8 ug/mL (5.0-15.0) 09/10/18 09:20 Microbiology: Microbiology 09/08/18 17:26 Tissue - Breast Gram Stain - Final 09/08/18 17:26 Tissue - Breast Wound Culture - Preliminary No growth-Final to follow Goal Trough: 10-15 mcg/mL Pharmacy Plan for Drug Dosing: The patient had a trough drawn which resulted in a value of 10.8 (drawn ~12hrs from last administered dose). This is within the goal trough of 10-15. Will continue on the same dose and recheck a trough in 4 days per protocol. PLAN/RECOMMENDATIONS 1. Continue vancomycin 1750mg IV Q12hrs 2. Trough scheduled for 09/14/18 @2630 3. Pharmacy Service will continue to monitor and adjust dosing as required.
--- NOTE | 2018-09-10 11:43 | PCM.PN.SRG ---
Subjective: Postop #2 Patient is resting comfortably. Tolerating po analgesia. - Physical Exam General: Alert, Oriented x3 HEENT: PERRLA, EOMI Oral: Moist Mucosa Neck: Supple Skin: Incision - breast incision intact and dry. No clinical evidence of hematoma. Neurological: Cranial nerves II-XII grossly intact Psych/Mental Status: Normal Affect, Appropriate Vital Signs Temp Pulse Resp BP Pulse Ox 97.5 F L 74 18 125/65 H 97 09/10/18 07:35 09/10/18 07:35 09/10/18 07:35 09/10/18 07:35 09/10/18 07:35 Oxygen Delivery Method Room Air Weight: 282 lb 3.067 oz Body Mass Index (BMI) 45.3 Intake and Output for Last 24 Hours 09/08/18 09/09/18 09/10/18 23:59 23:59 23:59 Intake Total 1600 / 1600 3885 / 3885 3604 / 3604 Output Total 5925 / 5925 2650 / 2650 Balance 1600 / 1600 -2040 / -2040 954 / 954 Drainage 325 ml yesterday, 150 ml today. Microbiology Past 72 Hours 09/08/18 17:26 Gram Stain - Final Tissue - Breast Wound Culture - Preliminary No growth-Final to follow Laboratory Tests Past 24 Hrs 09/10/18 09/10/18 09/10/18 05:37 05:37 09:20 WBC 6.5 RBC 3.65 L Hgb 9.9 L Hct 32.7 L MCV 89.6 MCH 27.1 MCHC 30.3 L RDW 15.3 H RDW Differential 49.0 H Plt Count 287 MPV 9.6 Sodium 142 Potassium 4.0 Chloride 106 Carbon Dioxide 30.0 Anion Gap 6 BUN 13 Creatinine 0.53 L Estim Creat Clear Calc 124.16 Est GFR (MDRD) Af Amer 160 Est GFR (MDRD) Non-Af 132 BUN/Creatinine Ratio 24.6 H Glucose 89 Calcium 7.9 L Total Bilirubin 0.20 AST 14 L ALT 19 Alkaline Phosphatase 68 Total Protein 6.1 L Albumin 2.8 L Globulin 3.3 Albumin/Globulin Ratio 0.8 L Vancomycin Trough 10.8 Medical Necessity - Tobacco Use Smoking Status: Former smoker Tobacco Use: Cigarettes Assessment/Plan All Active Problems (Last Reviewed 11/13/17 @ 09:21 by Tiff Abdi) Breast implant removal status (Acute) Breast implant status (Acute) Infection of breast implant (Acute) Cellulitis of right breast (Acute) Septic shock (Acute) Infected wound (Acute) Open wound of right breast (Acute) 1. Nonhealing ulcer right breast reconstruction. 2. Recurrent infections bilateral breasts. 3. Bilateral macromastia s/p breast reduction mammaplasty. 4. s/p completion mastectomy right breast. 5. Acquired absence right breast. 6. Disproportion reconstructed breasts. 7. Former smoker. 8. MRSA. 9. Deformity right breast reconstruction s/p removal of infected breast implant. 10. s/p surgical preparation right breast reconstruction with excisional debridement nonhealing MRSA ulcer and complex secondary wound closure. Tolerating po analgesia. IV antibiotics have been approved for home. Right breast incision is dry and intact. No clinical evidence of hematoma. Continue Vancomycin. Operative cultures are pending. MRSA Wound DNA by PCR was negative. Prealbumin was 25.1. Encourage nutritional supplementation with protein to help the healing process. Continue chest wall binder for compression. Discharge home today. Followup office one week. Will remove the drain in 2-3 weeks. Wrote script for Dilaudid for pain (50 tabs) and for Valium for spasm, 2mg (50 tabs).
--- NOTE | 2018-09-10 12:15 | DCINST_ITS ---
You will use the following diet at home:: No restrictions Discharge Activity: May not drive while taking narcotic pain medications., May Not Shower - until the drain is removed. May shower in (days): 14 - after the drain is removed in the office. May resume sexual activity in: 10-14 days Weight Bearing Status: Weight bearing as tolerated Lifting Restrictions: 20 lbs. Keep extremity elevated above heart level: - - elevate head. Call your doctor if your incision/area has: Continuous Slow Oozing, Sudden Increased Bleeding, Increased Pain/ Swelling, Increased Redness, Foul Smelling Discharge, Swelling at the incision site Call your doctor if you observe: Fever of 101 or Higher, Coldness, Increased Pain, Shortness of breath, Chest pain, Calf discomfort, Uncontrolled pain Suture Line Care: - - dry dressings daily followed by compression LILLY wrap. Change Dressing in (Days):: 1 - dry dressings daily followed by compression LILLY wrap. Cleanse incision/area with: - - may get incision wet in the shower after the drain is removed. Drain: Suction - khalida drain to bulb suction. empty and record output daily. Allergies/Adverse Reactions: Allergies codeine Allergy (Verified 09/07/18 13:42) Rash Penicillins Allergy (Verified 09/07/18 13:42) Rash NSAIDS (Non-Steroidal Anti-Inflamma Adverse Reaction (Verified 09/07/18 13:42) Other UNABLE TO TAKE DUE TO WEIGHT LOSS SURGERY Medications to take at Discharge Calcium Carbonate/Vitamin D3 [Calcium 600-Vit D3 400 Caplet] 1 ea PO BID 08/15/15 Cholecalciferol (VIT D3) [Vitamin D3] 2,000 unit PO DAILY 08/15/15 Multivitamins,Ther W-Minerals [Multivitamin With Minerals] 1 tab PO DAILY 08/15/15 Nortriptyline HCl [Pamelor] 50 mg PO QHS 04/03/16 buPROPion XL [Wellbutrin Xl] 450 mg PO DAILY 04/18/17 Iron Polysaccharide Complex [Ferrex 150] 150 mg PO BID 05/01/17 Acetaminophen [Tylenol] 1,000 mg PO Q8H PRN #1 tab 05/06/17 Ascorbic Acid [Vitamin C] 1,000 mg PO BID 12/03/17 Fluoxetine HCl [Prozac] 40 mg PO DAILY 12/03/17 Magnesium 250 mg PO QHS 12/03/17 Docusate Sodium [Colace] 100 mg PO BID #60 cap 12/18/17 proMETHazine tablet [Phenergan tablet] 25 mg PO 4X/DAY PRN PRN #30 tab 12/18/17 Zolpidem Tartrate [Ambien] 10 mg PO QHS PRN 04/07/18 DiphenhydrAMINE [Benadryl] 50 mg PO 4X/DAY PRN cap 05/07/18 levothyroxine 175 mcg tablet 200 mcg PO DAILY 07/01/18 Vancomycin IV 1,750 mg IV Q12H 40 Days #80 vial 09/09/18 Diazepam [Valium] 4 mg PO 4X/DAY PRN PRN #50 tab 09/10/18 HYDROmorphone tablet [Dilaudid] 2 - 4 mg PO 4X/DAY PRN PRN 7 Days #50 tab 09/10/18 The following prescriptions were given: Diazepam [Valium] 4 mg PO 4X/DAY PRN PRN #50 tab PRN Reason: Spasms HYDROmorphone tablet [Dilaudid] 2 - 4 mg PO 4X/DAY PRN PRN 7 Days #50 tab PRN Reason: Severe Pain (6-10/10) Vancomycin IV 1,750 mg IV Q12H 40 Days #80 vial Primary Care Physician: Eduardo Peters DO [Primary Care Provider] - Test Results: Test results from this visit will be discussed in further detail at your follow- up appointment, if applicable. Please Follow Up With: Sean Stevenson MD When: one week. call [phone] for appt. Proposed Discharge Date: 09/10/18
[2018-09-10] MEDS: HYDROmorphone 2 MG TABLET PO (13:28)
[2018-09-10 13:30] VITALS: BP 118/66; PULSE 63; RESP 18; TEMP 36.6; O2SAT 100
--- OUTSIDE RECORDS SUMMARY | 2018-10-25 16:16 | XMS RPT_ITS ---
:1970 Author Organization OHIP Support Name Relationship Address Phone CHAMPION, SANTHOSH Unavailable [address] + [place] [address] D Unavailable Unavailable Unavailable CHAMPION, SANTHOSH Unavailable [address] + [place] [address] D Unavailable Unavailable Unavailable CHAMPION, SANTHOSH Unavailable [address] + [place] [address] D Unavailable Unavailable Unavailable CHAMPION, SANTHOSH Unavailable Unavailable + D Unavailable Unavailable Unavailable CHAMPION, SANTHOSH Unavailable . + [place] [address] D Unavailable Unavailable Unavailable CHAMPION, SANTHOSH Unavailable . + [place] [address] D Unavailable Unavailable Unavailable CHAMPION, SANTHOSH Unavailable . + [place] [address] D Unavailable Unavailable Unavailable CHAMPION, SANTHOSH Unavailable . + [place] [address] D Unavailable Unavailable Unavailable CHAMPION, SANTHOSH Unavailable . + [place] [address] D Unavailable Unavailable Unavailable CHAMPION, SANTOHSH Unavailable . + [place] [address] D Unavailable Unavailable Unavailable CHAMPION, SANTHOSH Unavailable . + [place] [address] D Unavailable Unavailable Unavailable CHAMPION, SANTHOSH Unavailable Unavailable + [place] [address] D Unavailable Unavailable Unavailable CHAMPION, SANTHOSH Unavailable Unavailable + [place] [address] D Unavailable Unavailable Unavailable CHAMPION, SANTHOSH Unavailable . + [place] [address] D Unavailable Unavailable Unavailable CHAMPION, SANTHOSH Unavailable . + [place] [address] D Unavailable Unavailable Unavailable CHAMPION, SANTHOSH Unavailable Unavailable + [place] [address] D Unavailable Unavailable Unavailable CHAMPION, SANTHOSH Unavailable Unavailable + [place] [address] UE Unavailable Unavailable Unavailable CHAMPION, SANTHOSH Unavailable Unavailable + [place] [address] UE Unavailable Unavailable Unavailable CHAMPION, SANTHOSH Unavailable Unavailable + [place] [address] UE Unavailable Unavailable Unavailable CHAMPION, SANTHOSH Unavailable Unavailable + [place] [address] UE Unavailable Unavailable Unavailable CHAMPION, SANTHOSH Unavailable Unavailable + [place] [address] UE Unavailable Unavailable Unavailable CHAMPION, SANTHOSH Unavailable . + [place] [address] UE Unavailable Unavailable Unavailable CHAMPION, SANTHOSH Unavailable . + [place] [address] UE Unavailable Unavailable Unavailable CHAMPION, SANTHOSH Unavailable . + [place] [address] UE Unavailable Unavailable Unavailable CHAMPION, SANTHOSH Unavailable . + [place] [address] UE Unavailable Unavailable Unavailable CHAMPION, SANTHOSH Unavailable . + [place] [address] UE Unavailable Unavailable Unavailable CHAMPION, SANTHOSH Unavailable . + [place] [address] UE Unavailable Unavailable Unavailable CHAMPION, SANTHOSH Unavailable . + [place] [address] UE Unavailable Unavailable Unavailable CHAMPION, SANTHOSH Unavailable . + [place] [address] UE Unavailable Unavailable Unavailable CHAMPION, SANTHOSH Unavailable . + [place] [address] UE Unavailable Unavailable Unavailable CHAMPION, SANTHOSH Unavailable Unavailable + [place] [address] UE Unavailable Unavailable Unavailable CHAMPION, SANTHOSH Unavailable . + [place] [address] UE Unavailable Unavailable Unavailable CHAMPION, SANTHOSH Unavailable . + [place] [address] UE Unavailable Unavailable Unavailable CHAMPION, SANTHOSH Unavailable . + [place] [address] UE Unavailable Unavailable Unavailable CHAMPION, SANTHOSH Unavailable . + [place] [address] UE Unavailable Unavailable Unavailable CHAMPION, SANTHOSH Unavailable Unavailable + UE Unavailable Unavailable Unavailable CHAMPION, SANTHOSH Unavailable Unavailable + UE Unavailable Unavailable Unavailable CHAMPION, SANTHOSH Unavailable . + [place] [address] UE Unavailable Unavailable Unavailable CHAMPION, SANTHOSH Unavailable Unavailable + UE Unavailable Unavailable Unavailable CHAMPION, SANTHOSH Unavailable Unavailable + UE Unavailable Unavailable Unavailable CHAMPION, SANTHOSH Unavailable Unavailable + UE Unavailable Unavailable Unavailable CHAMPION, SANTHOSH Unavailable . + ., [place] . UE Unavailable Unavailable Unavailable CHAMPION, SANTH[place]H Unavailable . + ., [place] . UE Unavailable Unavailable Unavailable CHAMPION, SANHTOSH Unavailable [address] [place] [address] DR + [place] [address] UE Unavailable Unavailable Unavailable CHAMPION, SANTHOSH Unavailable [address] [place] [address] DR + [place] [address] UE Unavailable Unavailable Unavailable CHAMPION, SANTHOSH Unavailable [address] [place] [address] DR + [place] [address] UE Unavailable Unavailable Unavailable CHAMPION, SANTHOSH Unavailable Unavailable + UE Unavailable Unavailable Unavailable CHAMPION, SANTHOSH Unavailable [address] [place] [address] DR + [place] [address] UE Unavailable Unavailable Unavailable CHAMPION, SANTHOSH Unavailable [address] [place] [address] DR + [place] [address] UE Unavailable Unavailable Unavailable CHAMPION, SANTHOSH Unavailable [address] [place] [address] DR [phone] [place] [address] UE Unavailable Unavailable Unavailable CHAMPION, SANTHOSH Unavailable [address] [place] [address] DR [phone] [place] [address] UE Unavailable Unavailable Unavailable CHAMPION, SANTHOSH Unavailable [address] [place] [address] DR [phone] [place] [address] UE Unavailable Unavailable Unavailable CHAMPION, SANTHOSH Unavailable [address] [place] [address] DR [phone] [place] [address] UE Unavailable Unavailable Unavailable CHAMPION, SANTHOSH Unavailable [facility] [address] [phone] [place] [address] UE Unavailable Unavailable Unavailable CHAMPION, SANTHOSH Unavailable [facility] [address] [phone] [place] [address] UE Unavailable Unavailable Unavailable CHAMPION, SANTHOSH Unavailable [facility] [address] [phone] [place] [address] UE Unavailable Unavailable Unavailable CHAMPION, SANTHOSH Unavailable [address] [place] [address] DR [phone] [place] [address] UE Unavailable Unavailable Unavailable CHAMPION, SANTHOSH Unavailable [address] [place] [address] DR [phone] [place] [address] UE Unavailable Unavailable Unavailable CHAMPION, SANTHOSH Unavailable [address] [place] [address] DR [phone] [place] [address] UE Unavailable Unavailable Unavailable CHAMPION, SANTHOSH Unavailable [address] [place] [address] DR [phone] [place] [address] UE Unavailable Unavailable Unavailable CHAMPION, SANTHOSH Unavailable [address] [place] [address] DR [phone] [place] [address] UE Unavailable Unavailable Unavailable CHAMPION, SANTHOSH Unavailable [address] [place] [address] DR [phone] [place] [address] UE Unavailable Unavailable Unavailable CHAMPION, SANTHOSH Unavailable [address] [place] [address] DR [phone] [place] [address] UE Unavailable Unavailable Unavailable CHAMPION, SANTHOSH Unavailable [address] [place] [address] DR [phone] [place] [address] UE Unavailable Unavailable Unavailable CHAMPION, SANTHOSH Unavailable [address] [place] [address] DR [phone] [place] [address] UE Unavailable Unavailable Unavailable CHAMPION, SANTHOSH Unavailable [address] [place] [address] DR [phone] [place] [address] UE Unavailable Unavailable Unavailable CHAMPION, SANTHOSH Unavailable [address] [place] [address] DR [phone] [place] [address] HOSPICE Unavailable [address] + [place] [address] UE Unavailable Unavailable Unavailable CHAMPELVIA SANTHOSH Unavailable [address] [place] [address] DR [phone] [place] [address] HOSPICE Unavailable [address] + [place] [address] UE Unavailable Unavailable Unavailable MEGA OWENSARA Unavailable [address] [place] [address] DR [phone] [place] [address] UE Unavailable Unavailable Unavailable CHAMPELVIA SANTHOSH Unavailable [address] [place] [address] DR [phone] [place] [address] HOS[address]ICE Unavailable [address] + [place] [address] JEZ KYLEIGH Unavailable [address] + [place] [address] CHAMPELVIA SANTHOSH Unavailable [address] [place] [address] DR + [place] [address] HOSPICE Unavailable [address] + [place] [address] JEZ KYLEIGH Unavailable [address] + [place] [address] CHAMPELVIA SANTHOSH Unavailable [address] [place] [address] DR + [place] [address] HOSPICE Unavailable [address] + [place] [address] JEZ KYLEIGH Unavailable [address] + [place] [address] CHAMPELVIA SANTHOSH Unavailable [address] [place] [address] DR + [place] [address] HOSPICE Unavailable [address] + [place] [address] JEZ KYLEIGH Unavailable [address] + [place] [address] Care Team Providers Name Role Phone RHONA CASTRO (KNIFE SETTER ASSEMBLER) Attending Unavailable Sean Stevenson Admitting Unavailable Sean Stevenson Attending Unavailable Sean Stevenson Referring Unavailable Eduardo Peters Primary Care Unavailable Sean Stevenson Consulting Unavailable Sean Stevenson Admitting Unavailable Sean Stevenson Attending Unavailable Eduardo Peters Primary Care Unavailable Sean Stevenson Consulting Unavailable Jonn Pedroza Referring Unavailable Slaby, Sean Attending Unavailable Peters, Eduardo Referring Unavailable Slaby, Sean Admitting Unavailable Slaby, Sean Attending Unavailable Slaby, Sean Referring Unavailable Peters, Eduardo Primary Care Unavailable Slaby, Sean Consulting Unavailable Slaby, Sean Admitting Unavailable Slaby, Sean Attending Unavailable Slaby, Sean Referring Unavailable Peters, Eduardo Primary Care Unavailable Slaby, Sean Consulting Unavailable Naresh, Huma E Attending Unavailable Peters, Eduardo Referring Unavailable Slaby, Sean Attending Unavailable Slaby, Sean Attending Unavailable Slaby, Sean Referring Unavailable Peters, Eduardo Primary Care Unavailable Slaby, Sean Attending Unavailable Slaby, Sean Referring Unavailable Peters, Eduardo Primary Care Unavailable Naresh, Huma E Consulting Unavailable Naresh, Huma E Attending Unavailable Peters, Eduardo Referring Unavailable Slaby, Sean Attending Unavailable Peters, Eduardo Referring Unavailable Slaby, Sean Attending Unavailable Slaby, Sean Referring Unavailable Peters, Eduardo Primary Care Unavailable Naresh, Huma E Attending Unavailable Peters, Eduardo Referring Unavailable Peters, Eduardo Primary Care Unavailable Slaby, Sean Attending Unavailable Slaby, Sean Referring Unavailable Abdi, Tiff Attending Unavailable Slaby, Sean Attending Unavailable Peters, Eduardo Referring Unavailable Peters, Eduardo Primary Care Unavailable Slaby, Sean Attending Unavailable Slaby, Sean Referring Unavailable Peters, Eduardo Primary Care Unavailable Slaby, Sean Admitting Unavailable Slaby, Sean Attending Unavailable Slaby, Sean Referring Unavailable Peters, Eduardo Primary Care Unavailable Slaby, Sean Consulting Unavailable Slaby, Sean Attending Unavailable Slaby, Sean Referring Unavailable Peters, Eduardo Primary Care Unavailable Slaby, Sean Attending Unavailable Peters, Eduardo Referring Unavailable Peters, Eduardo Primary Care Unavailable Slaby, Sean Attending Unavailable Slaby, Sean Referring Unavailable Peters, Eduardo Primary Care Unavailable Slaby, Sean Attending Unavailable Slaby, Sean Referring Unavailable Peters, Eduardo Primary Care Unavailable Slaby, Sean Attending Unavailable Slaby, Sean Referring Unavailable Peters, Eduardo Primary Care Unavailable Slaby, Sean Attending Unavailable Peters, Eduardo Referring Unavailable Peters, Eduardo Primary Care Unavailable Slaby, Sean Admitting Unavailable Slaby, Sean Attending Unavailable Slaby, Sean Referring Unavailable Peters, Eduardo Primary Care Unavailable Slaby, Sean Consulting Unavailable Slaby, Sean Attending Unavailable Peters, Eduardo Referring Unavailable Peters, Eduardo Primary Care Unavailable Peters, Eduardo Primary Care Unavailable Sahil, Brian Attending Unavailable Slaby, Sean Attending Unavailable Peters, Eduardo Referring Unavailable Peters, Eduardo Primary Care Unavailable Slaby, Sean Attending Unavailable Peters, Eduardo Referring Unavailable Peters, Eduardo Primary Care Unavailable Slaby, Sean Attending Unavailable Slaby, Sean Referring Unavailable Peters, Eduardo Primary Care Unavailable Slaby, Sean Attending Unavailable Slaby, Sean Referring Unavailable Peters, Eduardo Primary Care Unavailable Slaby, Sean Attending Unavailable Slaby, Sean Referring Unavailable Peters, Eduardo Primary Care Unavailable Slaby, Sean Attending Unavailable Peters, Eduardo Referring Unavailable Peters, Eduardo Primary Care Unavailable Slaby, Sean Attending Unavailable Peters, Eduardo Referring Unavailable Peters, Eduardo Primary Care Unavailable Slaby, Sean Attending Unavailable Peters, Eduardo Referring Unavailable Peters, Eduardo Primary Care Unavailable Slaby, Sean Attending Unavailable Peters, Eduardo Referring Unavailable Peters, Eduardo Primary Care Unavailable Slaby, Sean Attending Unavailable Slaby, Sean Referring Unavailable Peters, Eduardo Primary Care Unavailable Slaby, Sean Attending Unavailable Slaby, Sean Referring Unavailable Peters, Eduardo Primary Care Unavailable Peters, Eduardo Attending Unavailable Peters, Eduardo Referring Unavailable Peters, Eduardo Primary Care Unavailable Slaby, Sean Attending Unavailable Slaby, Sean Referring Unavailable Peters, Eduardo Primary Care Unavailable Slaby, Sean Admitting Unavailable Slaby, Sean Admitting Unavailable Slaby, Sean Attending Unavailable Slaby, Sean Referring Unavailable Peters, Eduardo Primary Care Unavailable Slaby, Sean Consulting Unavailable Slaby, Sean Attending Unavailable Slaby, Sean Referring Unavailable Peters, Eduardo Primary Care Unavailable Slaby, Sean Referring Unavailable Peters, Eduardo Primary Care Unavailable Matty Quiroz Attending Unavailable Slaby, Sean Attending Unavailable Peters, Eduardo Referring Unavailable Peters, Eduardo Primary Care Unavailable Slaby, Sean Attending Unavailable Peters, Eduardo Referring Unavailable Peters, Eduardo Primary Care Unavailable Slaby, Sean Attending Unavailable Slaby, Sean Referring Unavailable Peters, Eduardo Primary Care Unavailable Slaby, Sean Admitting Unavailable Matty Quiroz Consulting Unavailable Alexandre Ivan Consulting Unavailable Slaby, Sean Admitting Unavailable Slaby, Sean Attending Unavailable Slaby, Sean Referring Unavailable Peters, Eduardo Primary Care Unavailable Slaby, Sean Consulting Unavailable Slaby, Sean Attending Unavailable Slaby, Sean Referring Unavailable Peters, Eduardo Primary Care Unavailable Slaby, Sean Consulting Unavailable Slaby, Sean Admitting Unavailable EriconiAlexandre patel Attending Unavailable Slaby, Sean Referring Unavailable Peters, Eduardo Primary Care Unavailable Gabriella, Matty Consulting Unavailable KotsonisAlexandre Consulting Unavailable Slaby, Sean Consulting Unavailable Slaby, Sean Admitting Unavailable KomichelleoniAlexandre patel F Attending Unavailable Slaby, Sean Referring Unavailable Peters, Eduardo Primary Care Unavailable Gabriella, Matty Consulting Unavailable Kotsoniamanda, Alexandre F Consulting Unavailable Slaby, Sean Consulting Unavailable Slaby, Sean Admitting Unavailable Slaby, Sean Attending Unavailable Slaby, Sean Referring Unavailable Peters, Eduardo Primary Care Unavailable Gabriella, Matty Consulting Unavailable KotsoniAlexandre patel Consulting Unavailable Slaby, Sean Consulting Unavailable Slaby, Sean Referring Unavailable Peters, [place] Primary Care Unavailable Slaby, Sean Attending Unavailable Slaby, Sean Attending Unavailable Peters, Eduardo Referring Unavailable Peters, [place] Primary Care Unavailable Slaby, Sean Attending Unavailable Peters, [place] Primary Care Unavailable Slaby, Sean Attending Unavailable Slaby, Sean Referring Unavailable Peters, [place] Primary Care Unavailable Slaby, Sean Attending Unavailable Peters, [place] Primary Care Unavailable Naresh, Huma E Attending Unavailable Peters, [place] Primary Care Unavailable Slaby, Sean Consulting Unavailable Slaby, Sean Attending Unavailable Slaby, Sean Referring Unavailable Peters, [place] Primary Care Unavailable Slaby, Sean Attending Unavailable Peters, Eduardo Referring Unavailable Slaby, Sean Attending Unavailable Peters, [place] Primary Care Unavailable Slaby, Sean Consulting Unavailable Slaby, Sean Attending Unavailable Peters, [place] Primary Care Unavailable Slaby, Sean Consulting Unavailable Naresh, Huma E Attending Unavailable Peters, Eduardo Primary Care Unavailable Slaby, Sean Consulting Unavailable Slaby, Sean Attending Unavailable Peters, [place] Primary Care Unavailable Slaby, Sean Consulting Unavailable Slaby, Sean Attending Unavailable Peters, Eduardo Primary Care Unavailable Slaby, Sean Referring Unavailable Naresh, Huma E Consulting Unavailable Slaby, Sean Attending Unavailable Peters, Eduardo Primary Care Unavailable Slaby, Sean Consulting Unavailable Naresh, Huma E Attending Unavailable Peters, [place] Primary Care Unavailable Slaby, Sean Consulting Unavailable Slaby, Sean Attending Unavailable Peters, [place] Primary Care Unavailable Slaby, Sean Consulting Unavailable Naresh, Huma E Attending Unavailable Slaby, Sean Referring Unavailable Peters, Eduardo Primary Care Unavailable Naresh, Huma E Consulting Unavailable Slaby, Sean Consulting Unavailable Peters, Eduardo Attending Unavailable Peters, Eduardo Primary Care Unavailable Peters, Eduardo Referring Unavailable Slaby, Sean Attending Unavailable Slaby, Sean Referring Unavailable Peters, Eduardo Primary Care Unavailable Naresh, Huma E Consulting Unavailable Ramay, Sean Attending Unavailable Slaby, Sean Referring Unavailable Peters, Eduardo Primary Care Unavailable Naresh, Huma E Consulting Unavailable Slaby, Sean Consulting Unavailable Slaby, Sean Attending Unavailable Slaby, Sean Referring Unavailable Peters, Eduardo Primary Care Unavailable Slaby, Sean Admitting Unavailable Slaby, Sean Attending Unavailable Peters, Eduardo Referring Unavailable Peters, Eduardo Primary Care Unavailable PROBLEMS PROBLEMS DATE TYPE CONDITION / CODE ATTENDING STATUS SOURCE 10/20/2018 Unknown T81.40XA - Infection Sean Stevenson Active [place] following a Community procedure, Hospital unspecified, initial Repository encounter / T81.40XA(ICD-10) 10/01/2018 Unknown G89.18 - Other acute Naresh, Active [place] postprocedural pain [facility] / G89.18(ICD-10) Hospital Repository 10/01/2018 Unknown N61.1 - Abscess of Naresh, Active [place] the breast and [facility] nipple / Hospital N61.1(ICD-10) Repository 10/01/2018 Unknown 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, 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 / L98.492(ICD-10) 10/01/2018 Unknown 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, 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 / Hospital Z90.11(ICD-10) Repository 10/01/2018 Unknown 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, 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 [facility] / N65.0(ICD-10) Hospital Repository 10/01/2018 Unknown N65.1 - Naresh, Active [place] Disproportion of [facility] Community reconstructed breast Hospital / N65.1(ICD-10) Repository 10/01/2018 Unknown Z98.86 - Personal Naresh, Active [place] history of breast [facility] implant removal / Hospital Z98.86(ICD-10) Repository 10/01/2018 Unknown T85.79XS - Infection Naresh, Active [place] and inflammatory [facility] Community reaction due to Hospital other internal Repository prosthetic devices, implants and grafts, sequela / T85.79XS(ICD-10) 09/28/2018 Unknown B95.62 - Methicillin Graham Sean Burton [place] resistant Community Staphylococcus Hospital aureus infection as Repository the cause of diseases classified elsewhere / B95.62(ICD-10) 09/17/2018 Unknown L76.82 - Other Sean Stevenson Active [place] postprocedural Community complications of Hospital skin and Repository subcutaneous tissue / L76.82(ICD-10) 07/12/2018 Unknown Z86.14 - 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 / Z86.14(ICD-10) 07/12/2018 Unknown T85.79XA - Infection Sean Stevenson Active [place] and inflammatory Community reaction due to Hospital other internal Repository prosthetic devices, implants and grafts, initial encounter / T85.79XA(ICD-10) 06/30/2018 Unknown T81.4XXA - Infection Graham Sean Active [place] following a Community procedure, initial Hospital encounter / Repository T81.4XXA(ICD-10) 06/30/2018 Unknown Z45.2 - Encounter Sean Stevenson [place] for adjustment and Community management of Hospital vascular access Repository device / Z45.2(ICD-10) 06/30/2018 Unknown Z51.81 - Encounter Sean Stevenson [place] for therapeutic drug Community level monitoring / Hospital Z51.81(ICD-10) Repository PROCEDURES PROCEDURES No Procedure Records FoundRESULTS RESULTS ERYTHROCYTE SED RATE Collected: 10/20/2018 Status: F Source: [place] 11:00 AM [facility] REPOSITORY TYPE CODE TESTS RESULT OUT OF RANGE REFERENCE UNITS LAB L102.0000 0-20 mm/hr High SED RATE 69 Performed By: #### L101.9900, L100.0500 #### [facility] [address] [place], [address] CBC-COMPLETE BLOOD CNT Collected: 10/20/2018 Status: F Source: [place] NO DIFF 11:00 AM [facility] REPOSITORY TYPE CODE TESTS RESULT OUT OF RANGE REFERENCE UNITS LAB L100.1000 4.4-11.0 K/mm3 Normal WBC 6.6 LAB L100.1200 4.2-5.4 M/mm3 Low RBC 4.18 LAB L100.1300 12.0-15.0 g/dl Low HGB 10.8 LAB L100.1400 37-47 % Low HCT 36.4 LAB L100.1500 81-99 fL Normal MCV 87.1 LAB L100.1600 27.0-32.0 pg Low MCH 25.8 LAB L100.1700 32-36 g/gl Low MCHC 29.7 LAB L100.1810 11.6-14.6 % High RDW CV 17.1 LAB L100.1820 35.1-43.9 fl High RDW SD 53.5 LAB L100.1900 150-450 K/mm3 Normal PLT 317 LAB L100.2000 6.2-12.0 fl Normal MPV 10.1 Performed By: #### L101.9900, L100.0500 #### [facility] [address] [place], [address] COMPREHENSIVE METABOLIC Collected: 10/20/2018 Status: F Source: [facility] 11:00 AM [facility] REPOSITORY TYPE CODE TESTS RESULT OUT OF RANGE REFERENCE UNITS LAB L501.0100 74-106 mg/dL Normal GLU 89 Result Comment: Please note revised GLUCOSE reference range effective 2017. LAB L501.1000 7-18 mg/dL Normal BUN 9 LAB L501.1100 0.55-1.02 mg/dL Normal CREAT,SERUM 0.63 Result Comment: The validity of the calculated GFR AND GFRAA in patients over 70 years has not been determined. Clinical correlation is essential. LAB L501.1110 >60 mL/min Normal EST GFR 108 Result Comment: Non- GFR Calc LAB L501.1115 >60 mL/min Normal EST GFR - AA 131 Result Comment: GFR Calc LAB L501.1300 10-20 RATIO Normal BUN/CRE 14.4 LAB L501.1500 6.4-8.2 g/dL T Normal PROT 7.0 LAB L501.1800 3.2-5.0 g/dL Normal ALB 3.4 LAB L501.1950 2.2-4.2 g/dL Normal GLOB 3.6 LAB L501.2000 0.9-2.4 RATIO Normal A/G 0.9 LAB L501.2200 8.5-10.1 mg/dL CA Normal 9.0 LAB L501.4100 15-37 U/L Normal AST 17 LAB L501.4305 45-117 U/L Normal ALK P 80 LAB L501.4405 13-56 U/L Normal ALT 23 LAB L501.4600 0.20-1.00 mg/dL T Normal BILI 0.20 LAB L501.5300 136-145 mmol/L NA Normal 141 LAB L501.5600 3.5-5.1 mmol/L K Normal 4.2 LAB L501.5900 98-107 mmol/L High CL 108 LAB L501.6100 21.0-32.0 mmol/L Normal CO2 28.0 LAB L501.6200 5-15 Normal GAP 5 Performed By: #### L500.4050, L501.6710 #### [facility] [address] [place], [address] CRP Collected: 10/20/2018 Status: F Source: [place] 11:00 AM [facility] REPOSITORY TYPE CODE TESTS RESULT OUT OF RANGE REFERENCE UNITS LAB L501.6710 0.0-3.0 mg/L High 4.80 C-REACTIVE PROT Result Comment: C-Reactive Protein (CRP) provides useful information for the diagnosis, therapy and monitoring of inflammatory processes and associated diseases. For the evaluation of Relative Risk for Cardiovascular Disease, a High Sensitivity CRP (HSCRP) should be ordered. Performed By: #### L500.4050, L501.6710 #### [facility] [address] [place], [address] VANCOMYCIN, TROUGH Collected: 10/20/2018 Status: F Source: [place] LEVEL 11:00 AM [facility] REPOSITORY Order Comment: Time Medication is to be Given? 0000 TYPE CODE TESTS RESULT OUT OF RANGE REFERENCE UNITS LAB L501.8820 5.0-15.0 ug/mL Normal VANCO, TROUGH 9.9 Result Comment: VANCOMYCIN STANDARED DRUG THERAPY TROUGH LEVEL: 5.0 - 15.0 mg/L VANCOMYCIN HIGH INTENSITY THERAPY TROUGH LEVEL: 15.0 - 20.0 mg/L High Intensity therapy recommended for serious life threatening infections include: - Meningitis -Endocarditis -Pneumonia (Ventilator/Healtcare Associated) -Sepsis PLEASE CONTACT PHARMACY SERVICES (#[id number]) FOR INTERPRETATION OF RESULTS. Performed By: #### L501.8820 #### [facility] [address] [place], [address] PLASTIC SURGERY Observed: 10/20/2018 Status: F Source: [place] VISIT REPORT 8:58 AM [facility] [address] [place] [address] OFFICE VISIT Date of Service: 10/14/18 MR#: [id number] Acct: [id number] Name: ROBLES CARRASQUILLO Rep #: [id number] : 1970 Provider: MAYI Infante Age/Sex: 48/F Location: [facility] Status: Signed Intake Vital Signs10/14/18 Blood Pressure 125/79 H H 10/14/18 Blood Pressure Location Rt brachial 10/14/18 Blood Pressure Position Sitting 10/14/18 Respiratory Rate 18 10/14/18 Pulse Rate 108 H Intake Visit Reasons: post op surgery 09/08/18 Cytotechnologist Required: No Accompanied by: None Is patient in pain?: Yes (RIGHT BREAST PAIN ACHING) Pain scale (1-10): 3 Allergies codeine Allergy (Verified 10/14/18 09:06) Rash Penicillins Allergy (Verified 10/14/18 09:06) Rash NSAIDS (Non-Steroidal Anti-Inflamma Adverse Reaction (Verified 10/14/18 09:06) Other Medications Calcium Carbonate/Vitamin D3 [Calcium 600-Vit D3 400 Caplet] 1 ea PO BID 08/15/15 [History Confirmed 09/25/18] Cholecalciferol (VIT D3) [Vitamin D3] 2,000 unit PO DAILY 08/15/15 [History Confirmed 09/25/18] Multivitamins,Ther W-Minerals [Multivitamin With Minerals] 1 tab PO DAILY 08/15/15 [History Confirmed 09/25/18] Nortriptyline HCl [Pamelor] 50 mg PO QHS 04/03/16 [History Confirmed 09/25/18] buPROPion XL [Wellbutrin Xl] 450 mg PO DAILY 04/18/17 [History Confirmed 09/25/18] Iron Polysaccharide Complex [Ferrex 150] 150 mg PO BID 05/01/17 [History Confirmed 09/25/18] Acetaminophen [Tylenol] 1,000 mg PO Q8H PRN #1 tab 05/06/17 [Rx Confirmed 09/25/18] Ascorbic Acid [Vitamin C] 1,000 mg PO BID 12/03/17 [History Confirmed 09/25/18] Fluoxetine HCl [Prozac] 40 mg PO DAILY 12/03/17 [History Confirmed 09/25/18] Magnesium 250 mg PO QHS 12/03/17 [History Confirmed 09/25/18] Docusate Sodium [Colace] 100 mg PO BID #60 cap 12/18/17 [Rx Confirmed 09/25/18] proMETHazine tablet [Phenergan tablet] 25 mg PO 4X/DAY PRN PRN #30 tab 12/18/17 [Rx Confirmed 09/25/18] Zolpidem Tartrate [Ambien] 10 mg PO QHS PRN 04/07/18 [History Confirmed 09/25/18] DiphenhydrAMINE [Benadryl] 50 mg PO 4X/DAY PRN cap 05/07/18 [Rx Confirmed 09/25/18] levothyroxine 175 mcg tablet 200 mcg PO DAILY 07/01/18 [History Confirmed 09/25/18] Diazepam [Valium] 4 mg PO 4X/DAY PRN PRN #50 tab 09/10/18 [Rx Confirmed 09/25/18] diazepam 5 mg tablet 5 mg PO 4X/DAY PRN #30 tab 09/17/18 [Rx Confirmed 09/25/18] hydromorphone 2 mg tablet See Rx Instructions PO 4X/DAY PRN #50 tab 09/17/18 [Rx Confirmed 09/25/18] hydromorphone 2 mg tablet See Rx Instructions PO Q6H PRN #50 tab 09/17/18 [Rx Confirmed 09/25/18] diazepam 5 mg tablet 5 mg PO 4X/DAY PRN #30 tab 09/25/18 [Rx Confirmed 09/25/18] levofloxacin 500 mg tablet 500 mg PO DAILY 30 Days #30 tab 10/14/18 [Rx Confirmed 10/14/18] PFSH Medical History Abscess (Acute) Anemia (Acute) [...] SUN EXPOSURE: OCCASIONALLY HPI post op surgery 09/08/18: Details: Postop visit from her recent surgery on 09/08/18 where she underwent surgical preparation right breast reconstruction with excisional debridement nonhealing MRSA ulcer and complex secondary wound closure. She was discharged from the hospital on 09/10/18. She feels tired and run down today. She has a temperature in the office of 99.9 F. On exam, her incision is dry and intact. No evidence of infection. Minimal drainage palpable. An Ultrasound guidance of her seroma was performed yesterday, 10/13/18. They obtained 190 ml of fluid. Awaiting culture results. Pathology showed focal ulceration and acute and chronic inflammation and fibrosis. Operative culture was negative. Will continue the Vancomycin because of her past history of MRSA. She will stop the Vancomycin on 10/19/18. Will begin Levaquin daily to broaden the spectrum since the Vancomycin will stop early next week. Once the Vancomycin is stopped, will keep the PICC line in for an additional week. If she starts to feel worse, she may need admission to the hospital for additional IV antibiotics. If the additional antibiotics are not successful, patient may need operative debridement and placement of the VAC. Followup one week. Assessment AND Plan Problems 1. 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 Abscess of right breast N61.1 3. Seroma of breast N64.89 4. Disproportion of reconstructed breast N65.1 5. Deformity of reconstructed breast N65.0 6. History of MRSA infection Z86.14 7. 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 Breast removal, prophylactic Z40.01 9. Breast implant removal status Z98.86 10. Infection and inflammatory reaction due to other internal prosthetic devices, implants and grafts, sequela T85.79XS 11. 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 Abscess of right breast N61.1 Seroma of breast N64.89 Disproportion of reconstructed breast N65.1 Deformity of reconstructed breast N65.0 History of MRSA infection Z86.14 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 Breast removal, prophylactic Z40.01 Breast implant removal status Z98.86 Infection and inflammatory reaction due to other internal prosthetic devices, implants and grafts, sequela T85.79XS Former smoker Z87.891 10/20/18 0858 <Electronically signed by Huma SEE> Date Huma Infante DIPLOMATIC INTERPRETER/TRANSLATOR-C 10/18/182029<Electronically signed by Sean Stevenson MD> [facility] Signature: Date (if applicable) Sean Stevenson MD CC: Observed: 10/13/2018 Status: F Source: [place] CULTURE, BODY FLUID 9:00 AM [facility] List Antibiotics Last 48 Hours? UNK List Antibiotics to be Started? UNK Gram Stain Gram Stain No organisms seen 1+ Red Blood Cells Body Fluid Cult Culture exhibits no growth. Cult, Anaerobic No growth in 5 days. Performed By: #### M100.1300 #### [facility] [address] [place], [address] CYST PUNCTURE Observed: 10/13/2018 Status: F Source: [place] 8:21 AM [facility] Imaging Services [address] [place] [address] Cyst Puncture MR#: [id number] Acct: [id number] Name: ROBLES CARRASQUILLO Rep #: [id number] : 1970 F 48 From: Devonte Bowers MD PCP: Eduardo Rubio DO Status: REG CLI Study: Cyst Puncture Date of Exam: 10/13/18 Exam# [id number] Ordering Dr: Sean Stevenson MD PROCEDURE: Ultrasound Guided aspiration of the right breast seroma. CLINICAL HISTORY: Female, 48 years old. The patient is status post right mastectomy. CONSENT: The procedure as well as the benefits and possible complications were explained to the patient. Informed consent was obtained. Time-Out Called: Yes Consent form signed: YES PT-PTT Levels Checked: Yes TECHNIQUE: The patient was in the supine position. Scanning of the right hemithorax demonstrated a 7.4 cm x 2.4 cm fluid collection suggestive of seroma. Following this, a 5 Somali catheter was placed into the collection. 190 mL of mee-colored fluid was aspirated. FINDINGS: Successful drainage of the seroma. US/Cyst Puncture IMPRESSION: Successful drainage of the seroma. The patient tolerated the procedure well. Electronically Signed: Devonte Bowers MD at 10:06 EST Tel [phone], Service support , CC: Sean Stevenson MD; Eduardo Rubio DO [employer]erks Supervisor: Signed CBC-COMPLETE BLOOD CNT Collected: 10/12/2018 Status: F Source: [place] NO DIFF 9:15 AM [facility] TYPE CODE TESTS RESULT OUT OF RANGE REFERENCE UNITS LAB L100.1000 4.4-11.0 K/mm3 Normal WBC 6.4 LAB L100.1200 4.2-5.4 M/mm3 Low RBC 4.18 LAB L100.1300 12.0-15.0 g/dl Low HGB 10.8 LAB L100.1400 37-47 % Low HCT 36.3 LAB L100.1500 81-99 fL Normal MCV 86.8 LAB L100.1600 27.0-32.0 pg Low MCH 25.8 LAB L100.1700 32-36 g/gl Low MCHC 29.8 LAB L100.1810 11.6-14.6 % High RDW CV 16.7 LAB L100.1820 35.1-43.9 fl High RDW SD 52.7 LAB L100.1900 150-450 K/mm3 Normal PLT 308 LAB L100.2000 6.2-12.0 fl Normal MPV 10.1 Performed By: #### L100.0500, L101.9900 #### [facility] [address] [place], [place], [address] ERYTHROCYTE SED RATE Collected: 10/12/2018 Status: F Source: [place] 9:15 AM [facility] TYPE CODE TESTS RESULT OUT OF RANGE REFERENCE UNITS LAB L102.0000 0-20 mm/hr High SED RATE 73 Performed By: #### L100.0500, L101.9900 #### [facility] [address] [place], [address] VANCOMYCIN, TROUGH Collected: 10/12/2018 Status: F Source: [place] [facility] 9:15 AM [facility] Order Comment: Time Medication is to be Given? 0000 TYPE CODE TESTS RESULT OUT OF RANGE REFERENCE UNITS LAB L501.8820 5.0-15.0 ug/mL Normal VANCO, TROUGH 10.0 Result Comment: VANCOMYCIN STANDARED DRUG THERAPY TROUGH LEVEL: 5.0 - 15.0 mg/L VANCOMYCIN HIGH INTENSITY THERAPY TROUGH LEVEL: 15.0 - 20.0 mg/L High Intensity therapy recommended for serious life threatening infections include: - Meningitis -Endocarditis -Pneumonia (Ventilator/Healtcare Associated) -Sepsis PLEASE CONTACT PHARMACY SERVICES (#[id number]) FOR INTERPRETATION OF RESULTS. Performed By: #### L501.8820 #### [facility] [address] [place], [address] COMPREHENSIVE METABOLIC Collected: 10/12/2018 Status: F Source: [place] [facility] 9:15 AM [facility] TYPE CODE TESTS RESULT OUT OF RANGE REFERENCE UNITS LAB L501.0100 74-106 mg/dL Normal GLU 90 Result Comment: Please note revised GLUCOSE reference range effective 2017. LAB L501.1000 7-18 mg/dL Normal BUN 7 LAB L501.1100 0.55-1.02 mg/dL Normal CREAT,SERUM 0.60 Result Comment: The validity of the calculated GFR AND GFRAA in patients over 70 years has not been determined. Clinical correlation is essential. LAB L501.1110 >60 mL/min Normal EST GFR 114 Result Comment: Non- GFR Calc LAB L501.1115 >60 mL/min Normal EST GFR - AA 138 Result Comment: GFR Calc LAB L501.1300 10-20 RATIO Normal BUN/CRE 11.6 LAB L501.1500 6.4-8.2 g/dL T Normal PROT 7.4 LAB L501.1800 3.2-5.0 g/dL Normal ALB 3.6 LAB L501.1950 2.2-4.2 g/dL Normal GLOB 3.8 LAB L501.2000 0.9-2.4 RATIO Normal A/G 0.9 LAB L501.2200 8.5-10.1 mg/dL CA Normal 8.8 LAB L501.4100 15-37 U/L Normal AST 20 LAB L501.4305 45-117 U/L Normal ALK P 86 LAB L501.4405 13-56 U/L Normal ALT 28 LAB L501.4600 0.20-1.00 mg/dL T Normal BILI 0.20 LAB L501.5300 136-145 mmol/L NA Normal 141 LAB L501.5600 3.5-5.1 mmol/L K Normal 4.1 LAB L501.5900 98-107 mmol/L CL Normal 104 LAB L501.6100 21.0-32.0 mmol/L Normal CO2 28.0 LAB L501.6200 5-15 Normal GAP 9 Performed By: #### L500.4050, L501.6710 #### [facility] [address], [address] CRP Collected: 10/12/2018 Status: F Source: [place] 9:15 AM [facility] TYPE CODE TESTS RESULT OUT OF RANGE REFERENCE UNITS LAB L501.6710 0.0-3.0 mg/L High 4.35 C-REACTIVE PROT Result Comment: C-Reactive Protein (CRP) provides useful information for the diagnosis, therapy and monitoring of inflammatory processes and associated diseases. For the evaluation of Relative Risk for Cardiovascular Disease, a High Sensitivity CRP (HSCRP) should be ordered. Performed By: #### L500.4050, L501.6710 #### [facility] [address] [place], [address] PLASTIC SURGERY Observed: 10/10/2018 Status: F Source: [place] VISIT REPORT 7:41 PM [facility]constructive Surgery [address] [place] [address] OFFICE VISIT Date of Service: 10/07/18 MR#: [id number] Acct: [id number] Name: JASMINDARWIN HOFFSandra Hyde Rep #: [id number] : 1970 Provider: Sean Stevenson MD Age/Sex: 48/F [facility] Status: Signed Intake Vital Signs10/07/18 Body Mass Index (BMI) 45.3 10/07/18 Blood Pressure 133/82 H H 10/07/18 Blood Pressure Location Rt brachial 10/07/18 Blood Pressure Position Sitting Intake Visit Reasons: post op surgery 09/08/18 Cytotechnologist Required: No Accompanied by: None Is patient in pain?: Yes (RIGHT BREAST PAIN ACHING) Pain scale (1-10): 3 Allergies codeine Allergy (Verified 10/07/18 14:28) Rash Penicillins Allergy (Verified 10/07/18 14:28) Rash NSAIDS (Non-Steroidal Anti-Inflamma Adverse Reaction (Verified 10/07/18 14:28) Other Medications Calcium Carbonate/Vitamin D3 [Calcium 600-Vit D3 400 Caplet] 1 ea PO BID 08/15/15 [History Confirmed 09/25/18] Cholecalciferol (VIT D3) [Vitamin D3] 2,000 unit PO DAILY 08/15/15 [History Confirmed 09/25/18] Multivitamins,Ther W-Minerals [Multivitamin With Minerals] 1 tab PO DAILY 08/15/15 [History Confirmed 09/25/18] Nortriptyline HCl [Pamelor] 50 mg PO QHS 04/03/16 [History Confirmed 09/25/18] buPROPion XL [Wellbutrin Xl] 450 mg PO DAILY 04/18/17 [History Confirmed 09/25/18] Iron Polysaccharide Complex [Ferrex 150] 150 mg PO BID 05/01/17 [History Confirmed 09/25/18] Acetaminophen [Tylenol] 1,000 mg PO Q8H PRN #1 tab 05/06/17 [Rx Confirmed 09/25/18] Ascorbic Acid [Vitamin C] 1,000 mg PO BID 12/03/17 [History Confirmed 09/25/18] Fluoxetine HCl [Prozac] 40 mg PO DAILY 12/03/17 [History Confirmed 09/25/18] Magnesium 250 mg PO QHS 12/03/17 [History Confirmed 09/25/18] Docusate Sodium [Colace] 100 mg PO BID #60 cap 12/18/17 [Rx Confirmed 09/25/18] proMETHazine tablet [Phenergan tablet] 25 mg PO 4X/DAY PRN PRN #30 tab 12/18/17 [Rx Confirmed 09/25/18] Zolpidem Tartrate [Ambien] 10 mg PO QHS PRN 04/07/18 [History Confirmed 09/25/18] DiphenhydrAMINE [Benadryl] 50 mg PO 4X/DAY PRN cap 05/07/18 [Rx Confirmed 09/25/18] levothyroxine 175 mcg tablet 200 mcg PO DAILY 07/01/18 [History Confirmed 09/25/18] Vancomycin IV 1,750 mg IV Q12H 40 Days #80 vial 09/09/18 [Rx Confirmed 09/25/18] Diazepam [Valium] 4 mg PO 4X/DAY PRN PRN #50 tab 09/10/18 [Rx Confirmed 09/25/18] diazepam 5 mg tablet 5 mg PO 4X/DAY PRN #30 tab 09/17/18 [Rx Confirmed 09/25/18] hydromorphone 2 mg tablet See Rx Instructions PO 4X/DAY PRN #50 tab 09/17/18 [Rx Confirmed 09/25/18] hydromorphone 2 mg tablet See Rx Instructions PO Q6H PRN #50 tab 09/17/18 [Rx Confirmed 09/25/18] diazepam 5 mg tablet 5 mg PO 4X/DAY PRN #30 tab 09/25/18 [Rx Confirmed 09/25/18] PFSH Medical History Abscess (Acute) Anemia (Acute) [...] SUN EXPOSURE: OCCASIONALLY HPI post op surgery 09/08/18: Details: Postop visit from her recent surgery on 09/08/18 where she underwent surgical preparation right breast reconstruction with excisional debridement nonhealing MRSA ulcer and complex secondary wound closure. She was discharged from the hospital on 09/10/18. She feels tired today. She denies fever. On exam, her incision is dry and intact. No evidence of infection. Since the drain has been removed, there is evidence of a seroma formation. Today there appears to be a little more fluid than last visit. An Ultrasound guidance of her seroma was ordered. Will send some of the fluid for culture because of her history of MRSA. It is scheduled on 10/13/18. Pathology showed focal ulceration and acute and chronic inflammation and fibrosis. Operative culture was negative. Will continue the Vancomycin because of her past history of MRSA. She will stop the Vancomycin on 10/20/18. Followup one week. Assessment AND Plan Problems 1. 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 Abscess of right breast N61.1 3. Seroma of breast N64.89 4. Disproportion of reconstructed breast N65.1 5. Deformity of reconstructed breast N65.0 6. History of MRSA infection Z86.14 7. 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 Breast removal, prophylactic Z40.01 9. Breast implant removal status Z98.86 10. Infection and inflammatory reaction due to other internal prosthetic devices, implants and grafts, sequela T85.79XS 11. 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 Abscess of right breast N61.1 Seroma of breast N64.89 Disproportion of reconstructed breast N65.1 Deformity of reconstructed breast N65.0 History of MRSA infection Z86.14 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 Breast removal, prophylactic Z40.01 Breast implant removal status Z98.86 Infection and inflammatory reaction due to other internal prosthetic devices, implants and grafts, sequela T85.79XS Former smoker Z87.891 10/09/18 1648 <Electronically signed by Sean Stevenson MD> Date Sean Stevenson MD 10/10/18 1941<Electronically signed by Huma SEE> Cosigner Signature: Date (if applicable) Huma Infante CC: COMPREHENSIVE METABOLIC Collected: 10/05/2018 Status: F Source: [place] 10:00 AM [facility]POS[facility] TYPE CODE TESTS RESULT OUT OF RANGE REFERENCE UNITS LAB L501.0100 74-106 mg/dL Normal GLU 96 Result Comment: Please note revised GLUCOSE reference range effective 2017. LAB L501.1000 7-18 mg/dL Normal BUN 9 LAB L501.1100 0.55-1.02 mg/dL Normal CREAT,SERUM 0.65 Result Comment: The validity of the calculated GFR AND GFRAA in patients over 70 years has not been determined. Clinical correlation is essential. LAB L501.1110 >60 mL/min Normal EST GFR 104 Result Comment: Non- GFR Calc LAB L501.1115 >60 mL/min Normal EST GFR - AA 125 Result Comment: GFR Calc LAB L501.1300 10-20 RATIO Normal BUN/CRE 13.8 LAB L501.1500 6.4-8.2 g/dL T Normal PROT 7.0 LAB L501.1800 3.2-5.0 g/dL Normal ALB 3.5 LAB L501.1950 2.2-4.2 g/dL Normal GLOB 3.5 LAB L501.2000 0.9-2.4 RATIO Normal A/G 1.0 LAB L501.2200 8.5-10.1 mg/dL CA Normal 8.8 LAB L501.4100 15-37 U/L Normal AST 23 LAB L501.4305 45-117 U/L Normal ALK P 91 LAB L501.4405 13-56 U/L Normal ALT 30 LAB L501.4600 0.20-1.00 mg/dL T Normal BILI 0.20 LAB L501.5300 136-145 mmol/L NA Normal 141 LAB L501.5600 3.5-5.1 mmol/L K Normal 4.3 LAB L501.5900 98-107 mmol/L CL Normal 106 LAB L501.6100 21.0-32.0 mmol/L Normal CO2 27.0 LAB L501.6200 5-15 Normal GAP 8 Performed By: #### L500.4050, L501.6710 #### [facility] [address] [place], [address] CRP Collected: 10/05/2018 Status: F Source: [place] 10:00 [facility] REPOSITORY TYPE CODE TESTS RESULT OUT OF RANGE REFERENCE UNITS LAB L501.6710 0.0-3.0 mg/L High 3.71 C-REACTIVE PROT Result Comment: C-Reactive Protein (CRP) provides useful information for the diagnosis, therapy and monitoring of inflammatory processes and associated diseases. For the evaluation of Relative Risk for Cardiovascular Disease, a High Sensitivity CRP (HSCRP) should be ordered. Performed By: #### L500.4050, L501.6710 #### [facility] [address] [place], [place], [address] VANCOMYCIN, TROUGH Collected: 10/05/2018 Status: F Source: [place] LEVEL 10:00 AM [facility] Order Comment: Time Medication is to be Given? 1030 TYPE CODE TESTS RESULT OUT OF RANGE REFERENCE UNITS LAB L501.8820 5.0-15.0 ug/mL Normal VANCO, TROUGH 13.2 Result Comment: VANCOMYCIN STANDARED DRUG THERAPY TROUGH LEVEL: 5.0 - 15.0 mg/L VANCOMYCIN HIGH INTENSITY THERAPY TROUGH LEVEL: 15.0 - 20.0 mg/L High Intensity therapy recommended for serious life threatening infections include: - Meningitis -Endocarditis -Pneumonia (Ventilator/Healtcare Associated) -Sepsis PLEASE CONTACT PHARMACY SERVICES (#[id number]) FOR INTERPRETATION OF RESULTS. Performed By: #### L501.8820 #### [facility] [address] [place], [place], [address] ERYTHROCYTE SED RATE Collected: 10/05/2018 Status: F Source: [place] 10:00 AM [facility] TYPE CODE TESTS RESULT OUT OF RANGE REFERENCE UNITS LAB L102.0000 0-20 mm/hr High SED RATE 52 Performed By: #### L101.9900, L100.0500 #### [facility] [address] [place], [place], [address] CBC-COMPLETE BLOOD CNT Collected: 10/05/2018 Status: F Source: [place] NO DIFF 10:00 AM [facility] REPOS[facility] TYPE CODE TESTS RESULT OUT OF RANGE REFERENCE UNITS LAB L100.1000 4.4-11.0 K/mm3 Normal WBC 6.6 LAB L100.1200 4.2-5.4 M/mm3 Low RBC 4.07 LAB L100.1300 12.0-15.0 g/dl Low HGB 10.5 LAB L100.1400 37-47 % Low HCT 35.3 LAB L100.1500 81-99 fL Normal MCV 86.7 LAB L100.1600 27.0-32.0 pg Low MCH 25.8 LAB L100.1700 32-36 g/gl Low MCHC 29.7 LAB L100.1810 11.6-14.6 % High RDW CV 16.3 LAB L100.1820 35.1-43.9 fl High RDW SD 52.0 LAB L100.1900 150-450 K/mm3 Normal PLT 315 LAB L100.2000 6.2-12.0 fl Normal MPV 9.9 Performed By: #### L101.9900, L100.0500 #### [facility] [address] [place], [address] PLASTIC SURGERY Observed: 10/02/2018 Status: F Source: [place] VISIT REPORT 11:40 AM [facility] [address] [place] [address] OFFICE VISIT Date of Service: 10/01/18 MR#: [id number] Acct: [id number] Name: ROBLES CARRASQUILLO Rep #: [id number] : 1970 Provider: MAYI Infante Age/Sex: 48/F Location: [facility] Status: Signed Intake Vital Signs10/01/18 Body Mass Index (BMI) 45.3 Intake Visit Reasons: postop surgery 09/08/18 Allergies codeine Allergy (Verified 09/25/18 09:34) Rash Penicillins Allergy (Verified 09/25/18 09:34) Rash NSAIDS (Non-Steroidal Anti-Inflamma Adverse Reaction (Verified 09/25/18 09:34) Other Medications Calcium Carbonate/Vitamin D3 [Calcium 600-Vit D3 400 Caplet] 1 ea PO BID 08/15/15 [History Confirmed 09/25/18] Cholecalciferol (VIT D3) [Vitamin D3] 2,000 unit PO DAILY 08/15/15 [History Confirmed 09/25/18] Multivitamins,Ther W-Minerals [Multivitamin With Minerals] 1 tab PO DAILY 08/15/15 [History Confirmed 09/25/18] Nortriptyline HCl [Pamelor] 50 mg PO QHS 04/03/16 [History Confirmed 09/25/18] buPROPion XL [Wellbutrin Xl] 450 mg PO DAILY 04/18/17 [History Confirmed 09/25/18] Iron Polysaccharide Complex [Ferrex 150] 150 mg PO BID 05/01/17 [History Confirmed 09/25/18] Acetaminophen [Tylenol] 1,000 mg PO Q8H PRN #1 tab 05/06/17 [Rx Confirmed 09/25/18] Ascorbic Acid [Vitamin C] 1,000 mg PO BID 03/07/18 [History Confirmed 09/25/18] Fluoxetine HCl [Prozac] 40 mg PO DAILY 12/03/17 [History Confirmed 09/25/18] Magnesium 250 mg PO QHS 12/03/17 [History Confirmed 09/25/18] Docusate Sodium [Colace] 100 mg PO BID #60 cap 12/18/17 [Rx Confirmed 09/25/18] proMETHazine tablet [Phenergan tablet] 25 mg PO 4X/DAY PRN PRN #30 tab 12/18/17 [Rx Confirmed 09/25/18] Zolpidem Tartrate [Ambien] 10 mg PO QHS PRN 04/07/18 [History Confirmed 09/25/18] DiphenhydrAMINE [Benadryl] 50 mg PO 4X/DAY PRN cap 05/07/18 [Rx Confirmed 09/25/18] levothyroxine 175 mcg tablet 200 mcg PO DAILY 07/01/18 [History Confirmed 09/25/18] Vancomycin IV 1,750 mg IV Q12H 40 Days #80 vial 09/09/18 [Rx Confirmed 09/25/18] Diazepam [Valium] 4 mg PO 4X/DAY PRN PRN #50 tab 09/10/18 [Rx Confirmed 09/25/18] diazepam 5 mg tablet 5 mg PO 4X/DAY PRN #30 tab 09/17/18 [Rx Confirmed 09/25/18] hydromorphone 2 mg tablet See Rx Instructions PO 4X/DAY PRN #50 tab 09/17/18 [Rx Confirmed 09/25/18] hydromorphone 2 mg tablet See Rx Instructions PO Q6H PRN #50 tab 09/17/18 [Rx Confirmed 09/25/18] diazepam 5 mg tablet 5 mg PO 4X/DAY PRN #30 tab 09/25/18 [Rx Confirmed 09/25/18] hydromorphone 2 mg tablet 2 mg PO 4X/DAY PRN #30 tab 09/25/18 [Rx Confirmed 09/25/18] hydromorphone 2 mg tablet 2 mg PO TID PRN #20 tab 10/01/18 [Rx Confirmed 10/01/18] PFSH Medical History Abscess (Acute) Anemia (Acute) [...] history: SUN EXPOSURE: OCCASIONALLY HPI postop surgery 09/08/18: Details: Postop visit from her recent surgery on 09/08/18 where she underwent surgical preparation right breast reconstruction with excisional debridement nonhealing MRSA ulcer and complex secondary wound closure. She has complaints of incisional pain. She fees tired today. She denies fever. On exam, her incision is dry and intact. No evidence of infection. Since the drain has been removed, there is evidence of a seroma formation. Will order an Ultrasound guidance of her seroma. Will send some of the fluid for culture because of her history of MRSA. Pathology showed focal ulceration and acute and chronic inflammation and fibrosis. Operative culture was negative. Will continue the Vancomycin because of her past history of MRSA. Renewed her Dilaudid for pain (20 tabs). She has enough Valium at this time. Followup one week. Assessment AND Plan Problems 1. 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 Abscess of right breast N61.1 3. Seroma of breast N64.89 4. Disproportion of reconstructed breast N65.1 5. Deformity of reconstructed breast N65.0 6. History of MRSA infection Z86.14 7. 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 Breast removal, prophylactic Z40.01 9. Breast implant removal status Z98.86 10. Infection and inflammatory reaction due to other internal prosthetic devices, implants and grafts, sequela T85.79XS 11. Former smoker Z87.891 Orders Orders: Breast Limited Unilateral 10/01/18 N61.1, N64.89, N65.0, N65.1, T85.79XS, Z86.14, Z90.11, Z 98.86 Medications New: hydromorphone (Dilaudid) 202 mg PO TID PRN 20 tabs 0RF pG89.18, L98.492, N61.1, N65.0, tabs (twenty) ain N65.1, T85.79XS, Z90.11, Z98. 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 Breast removal, prophylactic Z40.01 Breast implant removal status Z98.86 Infection and inflammatory reaction due to other internal prosthetic devices, implants and grafts, sequela T85.79XS Former smoker Z87.891 10/02/18 1140 <Electronically signed by Huma SEE> Date Huma SEE 10/02/18 1031<Electronically signed by Sean Stevenson MD> Cosigner Signature: Date (if applicable) Sean Stevenson MD CC: PLASTIC SURGERY Observed: 09/30/2018 Status: F Source: [place] VISIT REPORT 9:15 AM [facility] RE[facility] [address] [place] [address] OFFICE VISIT Date of Service: 09/25/18 MR#: [id number] Acct: [id number] Name: ROBLES CARRASQUILLO Rep #: [id number] : 1970 Provider: MAYI Infante Age/Sex: 48/F Location: [facility] [place] Status: Signed Intake Vital Signs09/25/18 Body Mass Index (BMI) 45.3 09/25/18 Weight: 291 lb 4 oz 09/25/18 Blood Pressure 137/91 H 09/25/18 Blood Pressure Location Lt brachial 09/25/18 Blood Pressure Position Sitting Intake Visit Reasons: post op surgery 09/08/18 Is patient in pain?: Yes Pain Scale - Faces (1-5): 4 Allergies codeine Allergy (Verified 09/25/18 09:34) Rash Penicillins Allergy (Verified 09/25/18 09:34) Rash NSAIDS (Non-Steroidal Anti-Inflamma Adverse Reaction (Verified 09/25/18 09:34) Other Medications Calcium Carbonate/Vitamin D3 [Calcium 600-Vit D3 400 Caplet] 1 ea PO BID 08/15/15 [History Confirmed 09/25/18] Cholecalciferol (VIT D3) [Vitamin D3] 2,000 unit PO DAILY 08/15/15 [History Confirmed 09/25/18] Multivitamins,Ther W-Minerals [Multivitamin With Minerals] 1 tab PO DAILY 08/15/15 [History Confirmed 09/25/18] Nortriptyline HCl [Pamelor] 50 mg PO QHS 04/03/16 [History Confirmed 09/25/18] buPROPion XL [Wellbutrin Xl] 450 mg PO DAILY 04/18/17 [History Confirmed 09/25/18] Iron Polysaccharide Complex [Ferrex 150] 150 mg PO BID 05/01/17 [History Confirmed 09/25/18] Acetaminophen [Tylenol] 1,000 mg PO Q8H PRN #1 tab 05/06/17 [Rx Confirmed 09/25/18] Ascorbic Acid [Vitamin C] 1,000 mg PO BID 12/03/17 [History Confirmed 09/25/18] Fluoxetine HCl [Prozac] 40 mg PO DAILY 12/03/17 [History Confirmed 09/25/18] Magnesium 250 mg PO QHS 12/03/17 [History Confirmed 09/25/18] Docusate Sodium [Colace] 100 mg PO BID #60 cap 12/18/17 [Rx Confirmed 09/25/18] proMETHazine tablet [Phenergan tablet] 25 mg PO 4X/DAY PRN PRN #30 tab 12/18/17 [Rx Confirmed 09/25/18] Zolpidem Tartrate [Ambien] 10 mg PO QHS PRN 04/07/18 [History Confirmed 09/25/18] DiphenhydrAMINE [Benadryl] 50 mg PO 4X/DAY PRN cap 05/07/18 [Rx Confirmed 09/25/18] levothyroxine 175 mcg tablet 200 mcg PO DAILY 07/01/18 [History Confirmed 09/25/18] Vancomycin IV 1,750 mg IV Q12H 40 Days #80 vial 09/09/18 [Rx Confirmed 09/25/18] Diazepam [Valium] 4 mg PO 4X/DAY PRN PRN #50 tab 09/10/18 [Rx Confirmed 09/25/18] diazepam 5 mg tablet 5 mg PO 4X/DAY PRN #30 tab 09/17/18 [Rx Confirmed 09/25/18] hydromorphone 2 mg tablet See Rx Instructions PO 4X/DAY PRN #50 tab 09/17/18 [Rx Confirmed 09/25/18] hydromorphone 2 mg tablet See Rx Instructions PO Q6H PRN #50 tab 09/17/18 [Rx Confirmed 09/25/18] diazepam 5 mg tablet 5 mg PO 4X/DAY PRN #30 tab 09/25/18 [Rx Confirmed 09/25/18] hydromorphone 2 mg tablet 2 mg PO 4X/DAY PRN #30 tab 09/25/18 [Rx Confirmed 09/25/18] PFSH Medical History Abscess (Acute) Anemia (Acute) [...] SUN EXPOSURE: OCCASIONALLY HPI post op surgery 09/08/18: Details: Details: Postop visit from her recent surgery on 09/08/18 where she underwent surgical preparation right breast reconstruction with excisional debridement nonhealing MRSA ulcer and complex secondary wound closure. She has complaints of incisional pain. On exam, her incision is dry and intact. No clinical evidence of hematoma. No evidence of infection. Drainage has been 50 ml per day. Removed Khalida drain today without difficulty. Pathology showed focal ulceration and acute and chronic inflammation and fibrosis. Operative culture was negative. Will continue the Vancomycin because of her past history of MRSA. Renewed her Dilaudid for pain (30 tabs) and her Valium for spasm (30 tabs). Followup 2 weeks. Assessment AND Plan Problems 1. 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 Abscess of right breast N61.1 3. 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 Deformity of reconstructed breast N65.0 5. History of MRSA infection Z86.14 6. 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 7. Breast removal, prophylactic Z40.01 8. Breast implant removal status Z98.86 9. Infection and inflammatory reaction due to other internal prosthetic devices, implants and grafts, sequela T85.79XS 10. 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.1 Deformity of reconstructed breast N65.0 History of MRSA infection Z86.14 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 Breast removal, prophylactic Z40.01 Breast implant removal status Z98.86 Infection and inflammatory reaction due to other internal prosthetic devices, implants and grafts, sequela T85.79XS Former smoker Z87.891 09/30/18 0915 <Electronically signed by Huma KLINEC> Date Huma KLINEC 09/30/18 0045<Electronically signed by Sean Stevenson MD> Cosigner Signature: Date (if applicable) Sean Stevenson MD CC: CBC-COMPLETE BLOOD CNT Collected: 09/28/2018 Status: F Source: [place] NO DIFF 9:30 AM [facility] REPOSITORY TYPE CODE TESTS RESULT OUT OF RANGE REFERENCE UNITS LAB L100.1000 4.4-11.0 K/mm3 Normal WBC 5.7 LAB L100.1200 4.2-5.4 M/mm3 Low RBC 3.90 LAB L100.1300 12.0-15.0 g/dl Low HGB 10.2 LAB L100.1400 37-47 % Low HCT 33.8 LAB L100.1500 81-99 fL Normal MCV 86.7 LAB L100.1600 27.0-32.0 pg Low MCH 26.2 LAB L100.1700 32-36 g/gl Low MCHC 30.2 LAB L100.1810 11.6-14.6 % High RDW CV 16.1 LAB L100.1820 35.1-43.9 fl High RDW SD 51.2 LAB L100.1900 150-450 K/mm3 Normal PLT 329 LAB L100.2000 6.2-12.0 fl Normal MPV 9.4 Performed By: #### L100.0500, L101.9900 #### [facility] [address] [place], [place], [id number] ERYTHROCYTE SED RATE Collected: 09/28/2018 Status: F Source: [place] 9:30 AM [facility] REPOSITORY TYPE CODE TESTS RESULT OUT OF RANGE REFERENCE UNITS LAB L102.0000 0-20 mm/hr High SED RATE 44 Performed By: #### L100.0500, L101.9900 #### [facility] [address] [place], [address] VANCOMYCIN, TROUGH Collected: 09/28/2018 Status: F Source: [place] LEVEL 9:30 AM [facility] REPOSIT[facility] Order Comment: Time Medication is to be Given? 0000 TYPE CODE TESTS RESULT OUT OF RANGE REFERENCE UNITS LAB L501.8820 5.0-15.0 ug/mL Normal VANCO, TROUGH 11.9 Result Comment: VANCOMYCIN STANDARED DRUG THERAPY TROUGH LEVEL: 5.0 - 15.0 mg/L VANCOMYCIN HIGH INTENSITY THERAPY TROUGH LEVEL: 15.0 - 20.0 mg/L High Intensity therapy recommended for serious life threatening infections include: - Meningitis -Endocarditis -Pneumonia (Ventilator/Healtcare Associated) -Sepsis PLEASE CONTACT PHARMACY SERVICES (#[id number]) FOR INTERPRETATION OF RESULTS. Performed By: #### L501.8820 #### [facility] [place], [address] COMPREHENSIVE METABOLIC Collected: 09/28/2018 Status: F Source: [facility] [facility] 9:30 AM [facility] REPOSITORY TYPE CODE TESTS RESULT OUT OF RANGE REFERENCE UNITS LAB L501.0100 74-106 mg/dL Normal GLU 89 Result Comment: Please note revised GLUCOSE reference range effective 2017. LAB L501.1000 7-18 mg/dL Normal BUN 8 LAB L501.1100 0.55-1.02 mg/dL Normal CREAT,SERUM 0.63 Result Comment: The validity of the calculated GFR AND GFRAA in patients over 70 years has not been determined. Clinical correlation is essential. LAB L501.1110 >60 mL/min Normal EST GFR 108 Result Comment: Non- GFR Calc LAB L501.1115 >60 mL/min Normal EST GFR - AA 131 Result Comment: GFR Calc LAB L501.1300 10-20 RATIO Normal BUN/CRE 12.7 LAB L501.1500 6.4-8.2 g/dL T Normal PROT 6.9 LAB L501.1800 3.2-5.0 g/dL Normal ALB 3.4 LAB L501.1950 2.2-4.2 g/dL Normal GLOB 3.5 LAB L501.2000 0.9-2.4 RATIO Normal A/G 1.0 LAB L501.2200 8.5-10.1 mg/dL CA Normal 8.8 LAB L501.4100 15-37 U/L Normal AST 20 LAB L501.4305 45-117 U/L Normal ALK P 85 LAB L501.4405 13-56 U/L Normal ALT 25 LAB L501.4600 0.20-1.00 mg/dL T Normal BILI 0.20 LAB L501.5300 136-145 mmol/L NA Normal 139 LAB L501.5600 3.5-5.1 mmol/L K Normal 4.3 LAB L501.5900 98-107 mmol/L CL Normal 104 LAB L501.6100 21.0-32.0 mmol/L Normal CO2 26.0 LAB L501.6200 5-15 Normal GAP 9 Performed By: #### L500.4050, L501.6710 #### [facility] [address] [place], [address] CRP Collected: 09/28/2018 Status: F Source: [place] 9:30 AM [facility] TYPE CODE TESTS RESULT OUT OF RANGE REFERENCE UNITS LAB L501.6710 0.0-3.0 mg/L High 3.79 C-REACTIVE PROT Result Comment: C-Reactive Protein (CRP) provides useful information for the diagnosis, therapy and monitoring of inflammatory processes and associated diseases. For the evaluation of Relative Risk for Cardiovascular Disease, a High Sensitivity CRP (HSCRP) should be ordered. Performed By: #### L500.4050, L501.6710 #### [facility] [address] [place], [address] PLASTIC SURGERY Observed: 09/22/2018 Status: F Source: [place] VISIT REPORT 7:58 PM [facility] [address] [place] [address] OFFICE VISIT Date of Service: 09/17/18 MR#: [id number] Acct: [id number] Name: ROBLES CARRASQUILLO Rep #: [id number] : 1970 Provider: Sean Stevenson MD Age/Sex: 48/F Location: [facility] Status: Signed Intake Vital Signs09/17/18 Body Mass Index (BMI) 45.3 09/17/18 Blood Pressure 146/86 H 09/17/18 Blood Pressure Location Rt brachial 09/17/18 Blood Pressure Position Sitting 09/17/18 Respiratory Rate 18 Intake Visit Reasons: post op surgery 09/08/18 Cytotechnologist Required: No Accompanied by: None Is patient in pain?: Yes (RIGHT CHEST PRESSURE) Pain scale (1-10): 4 Allergies codeine Allergy (Verified 09/17/18 13:07) Rash Penicillins Allergy (Verified 09/17/18 13:07) Rash NSAIDS (Non-Steroidal Anti-Inflamma Adverse Reaction (Verified 09/17/18 13:07) Other Medications Calcium Carbonate/Vitamin D3 [Calcium 600-Vit D3 400 Caplet] 1 ea PO BID 08/15/15 [History Confirmed 09/07/18] Cholecalciferol (VIT D3) [Vitamin D3] 2,000 unit PO DAILY 08/15/15 [History Confirmed 09/07/18] Multivitamins,Ther W-Minerals [Multivitamin With Minerals] 1 tab PO DAILY 08/15/15 [History Confirmed 09/07/18] Nortriptyline HCl [Pamelor] 50 mg PO QHS 04/03/16 [History Confirmed 09/07/18] buPROPion XL [Wellbutrin Xl] 450 mg PO DAILY 04/18/17 [History Confirmed 09/07/18] Iron Polysaccharide Complex [Ferrex 150] 150 mg PO BID 05/01/17 [History Confirmed 09/07/18] Acetaminophen [Tylenol] 1,000 mg PO Q8H PRN #1 tab 05/06/17 [Rx Confirmed 09/07/18] Ascorbic Acid [Vitamin C] 1,000 mg PO BID 12/03/17 [History Confirmed 09/07/18] Fluoxetine HCl [Prozac] 40 mg PO DAILY 12/03/17 [History Confirmed 09/07/18] Magnesium 250 mg PO QHS 12/03/17 [History Confirmed 09/07/18] Docusate Sodium [Colace] 100 mg PO BID #60 cap 12/18/17 [Rx Confirmed 09/07/18] proMETHazine tablet [Phenergan tablet] 25 mg PO 4X/DAY PRN PRN #30 tab 12/18/17 [Rx Confirmed 09/07/18] Zolpidem Tartrate [Ambien] 10 mg PO QHS PRN 04/07/18 [History Confirmed 09/07/18] DiphenhydrAMINE [Benadryl] 50 mg PO 4X/DAY PRN cap 05/07/18 [Rx Confirmed 09/07/18] levothyroxine 175 mcg tablet 200 mcg PO DAILY 07/01/18 [History Confirmed 09/07/18] Vancomycin IV 1,750 mg IV Q12H 40 Days #80 vial 09/09/18 [Rx] Diazepam [Valium] 4 mg PO 4X/DAY PRN PRN #50 tab 09/10/18 [Rx] diazepam 5 mg tablet 5 mg PO 4X/DAY PRN #30 tab 09/17/18 [Rx Confirmed 09/17/18] hydromorphone 2 mg tablet See Rx Instructions PO 4X/DAY PRN #50 tab 09/17/18 [Rx Confirmed 09/17/18] hydromorphone 2 mg tablet See Rx Instructions PO Q6H PRN #50 tab 09/17/18 [Rx Confirmed 09/17/18] Is last menstrual period known: No Post menopausal: Yes Patient : No PFSH Medical History Abscess (Acute) Anemia (Acute) [...] SUN EXPOSURE: OCCASIONALLY HPI post op surgery 09/08/18: Details: Postop visit from her recent surgery on 09/08/18 where she underwent surgical preparation right breast reconstruction with excisional debridement nonhealing MRSA ulcer and complex secondary wound closure. She has complaints of incisional pain. On exam, her incision is dry and intact. No clinical evidence of hematoma. No evidence of infection. Pathology was discussed with the patient. It showed focal ulceration and acute and chronic inflammation and fibrosis. Operative culture was discussed with the patient. The culture was negative. Her drainage has ranged from 165 ml/day down to 110 ml/day. Will continue the Vancomycin because of her past history of MRSA. Renewed her Dilaudid for pain (50 tabs) and her Valium for spasm (30 tabs). Followup one week for drain removal. Assessment AND Plan Problems 1. 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 Abscess of right breast N61.1 3. 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 Deformity of reconstructed breast N65.0 5. History of MRSA infection Z86.14 6. 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 7. Breast removal, prophylactic Z40.01 8. Breast implant removal status Z98.86 9. Infection and inflammatory reaction due to other internal prosthetic devices, implants and grafts, sequela T85.79XS 10. 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 Abscess of right breast N61.1 Disproportion of reconstructed breast N65.1 Deformity of reconstructed breast N65.0 History of MRSA infection Z86.14 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 Breast removal, prophylactic Z40.01 Breast implant removal status Z98.86 Infection and inflammatory reaction due to other internal prosthetic devices, implants and grafts, sequela T85.79XS Former smoker Z87.891 09/22/18 1336 <Electronically signed by Sean Stevenson MD> Date Sean Stevenson MD 09/22/18 1958<Electronically signed by Huma Infante NP-C> Cosigner Signature: Date (if applicable) Huma Infante DIPLOMATIC INTERPRETER/TRANSLATORCarolC CC: ERYTHROCYTE SED RATE Collected: 09/21/2018 Status: F Source: [place] 10:15 AM [facility] REPOSITORY TYPE CODE TESTS RESULT OUT OF RANGE REFERENCE UNITS LAB L102.0000 0-20 mm/hr High SED RATE 63 Performed By: #### L101.9900, L100.0500 #### [facility] [address] [place], [place], [address] CBC-COMPLETE BLOOD CNT Collected: 09/21/2018 Status: F Source: [place] NO DIFF 10:15 AM [facility] REPOSITORY TYPE CODE TESTS RESULT OUT OF RANGE REFERENCE UNITS LAB L100.1000 4.4-11.0 K/mm3 Normal WBC 6.5 LAB L100.1200 4.2-5.4 M/mm3 Low RBC 3.91 LAB L100.1300 12.0-15.0 g/dl Low HGB 10.2 LAB L100.1400 37-47 % Low HCT 34.2 LAB L100.1500 81-99 fL Normal MCV 87.5 LAB L100.1600 27.0-32.0 pg Low MCH 26.1 LAB L100.1700 32-36 g/gl Low MCHC 29.8 LAB L100.1810 11.6-14.6 % High RDW CV 15.8 LAB L100.1820 35.1-43.9 fl High RDW SD 50.6 LAB L100.1900 150-450 K/mm3 Normal PLT 380 LAB L100.2000 6.2-12.0 fl Normal MPV 9.6 Performed By: #### L101.9900, L100.0500 #### [facility] [address] [place], [address] COMPREHENSIVE METABOLIC Collected: 09/21/2018 Status: F Source: [place] [facility] 10:15 AM [facility] REPOSITORY TYPE CODE TESTS RESULT OUT OF RANGE REFERENCE UNITS LAB L501.0100 74-106 mg/dL Normal GLU 91 Result Comment: Please note revised GLUCOSE reference range effective 2017. LAB L501.1000 7-18 mg/dL Low BUN 6 LAB L501.1100 0.55-1.02 mg/dL Normal CREAT,SERUM 0.63 Result Comment: The validity of the calculated GFR AND GFRAA in patients over 70 years has not been determined. Clinical correlation is essential. LAB L501.1110 >60 mL/min Normal EST GFR 108 Result Comment: Non- GFR Calc LAB L501.1115 >60 mL/min Normal EST GFR - AA 131 Result Comment: GFR Calc LAB L501.1300 10-20 RATIO Low BUN/CRE 9.6 LAB L501.1500 6.4-8.2 g/dL Normal T PROT 6.8 LAB L501.1800 3.2-5.0 g/dL Low ALB 3.1 LAB L501.1950 2.2-4.2 g/dL Normal GLOB 3.7 LAB L501.2000 0.9-2.4 RATIO Low A/G 0.8 LAB L501.2200 8.5-10.1 mg/dL Normal CA 8.6 LAB L501.4100 15-37 U/L Normal AST 20 LAB L501.4305 45-117 U/L Normal ALK P 83 LAB L501.4405 13-56 U/L Normal ALT 21 LAB L501.4600 0.20-1.00 mg/dL Normal T BILI 0.20 LAB L501.5300 136-145 mmol/L Normal NA 142 LAB L501.5600 3.5-5.1 mmol/L Normal K 4.3 LAB L501.5900 98-107 mmol/L Normal CL 103 LAB L501.6100 21.0-32.0 mmol/L Normal CO2 29.0 LAB L501.6200 5-15 Normal GAP 10 Performed By: #### L500.4050, L501.6710 #### [facility] [address] [place], [address] CRP Collected: 09/21/2018 Status: F Source: [place] 10:15 AM [facility] REPOSITORY TYPE CODE TESTS RESULT OUT OF RANGE REFERENCE UNITS LAB L501.6710 0.0-3.0 mg/L High 7.63 C-REACTIVE PROT Result Comment: C-Reactive Protein (CRP) provides useful information for the diagnosis, therapy and monitoring of inflammatory processes and associated diseases. For the evaluation of Relative Risk for Cardiovascular Disease, a High Sensitivity CRP (HSCRP) should be ordered. Performed By: #### L500.4050, L501.6710 #### [facility] [address] [facility] [place], [address] VANCOMYCIN, TROUGH Collected: 09/21/2018 Status: F Source: [place] LEVEL 10:15 AM [facility] REPOSITORY Order Comment: Time Medication is to be Given? 0000 TYPE CODE TESTS RESULT OUT OF RANGE REFERENCE UNITS LAB L501.8820 5.0-15.0 ug/mL Normal VANCO, TROUGH 8.8 Result Comment: VANCOMYCIN STANDARED DRUG THERAPY TROUGH LEVEL: 5.0 - 15.0 mg/L VANCOMYCIN HIGH INTENSITY THERAPY TROUGH LEVEL: 15.0 - 20.0 mg/L High Intensity therapy recommended for serious life threatening infections include: - Meningitis -Endocarditis -Pneumonia (Ventilator/Healtcare Associated) -Sepsis PLEASE CONTACT PHARMACY SERVICES (#[id number]) FOR INTERPRETATION OF RESULTS. Performed By: #### L501.8820 #### [facility] [address] [facility] [place], [address] OPERATIVE REPORT Observed: 09/14/2018 Status: F Source: [place] 5:27 PM [facility] REPOSITORY [facility] Medical Records Department [address] [place] [address] Operative Report 09/08/182056 MR#: [id number] Acct: [id number] Name: ROBLES CARRASQUILLO Rep #: [id number] : 1970 48 From: Sean Stevenson MD PCP: Eduardo Rubio, Status: DIS IN Y Location: MS3 [id number] Report of Operation Date of Procedure: 09/08/18 [...] reconstruction with placement of submuscular saline tissue supervisor refining (800 ml) and placement DermACELL decellularized dermis graft (160 cm2). She tolerated the tissue expansion. On 05/05/18, she then underwent the next stage in the breast reconstruction process which was delayed right breast reconstruction with removal of saline tissue supervisor refining with replacement cohesive gel implant (800 ml) [...] (I used 2 vials). Reference Number - [id number]. Lot Number - [id number]. Expiration - April 25, 2023. upper trimmer: Bubba Ramos. Type of Anesthesia:: General Specimen's [...] Yes Code Visit Surgery Charges CPT - 37005 ICD-10 - L98.492, N61.1, N65.1, N65.0, Z86.14, Z90.11, Z40.01, Z98.86, T85.79xS, Z87.891 58699 L98.492, N61.1, N65.1, N65.0, Z86.14, Z90.11, Z40.01, Z98.86, T85.79xS, Z87.891 09/14/18 1727 <Electronically signed by Sean Stevenson MD> Date Sean Stevenson MD CC: Jonn Pedroza MD; Sean Stevenson MD; Eduardo Rubio DO; [facility] Signed CBC-COMPLETE BLOOD CNT Collected: 09/14/2018 Status: F Source: R[place] NO DIFF 9:30 AM [facility] REPOSITORY TYPE CODE TESTS RESULT OUT OF [...] 10.0 Performed By: #### L100.0500, L101.9900 #### [facility] [address] [place], [address] ERYTHROCYTE SED RATE Collected: 09/14/2018 Status: F Source: [place] 9:30 AM [facility] REPOSITORY TYPE CODE TESTS RESULT OUT OF RANGE REFERENCE UNITS LAB L102.0000 0-20 mm/hr High SED RATE 95 Performed By: #### L100.0500, L101.9900 #### [facility] [address] [place], [address] COMPREHENSIVE METABOLIC Collected: 09/14/2018 Status: F Source: ROHINI [facility] 9:30 AM [facility] REPOSITORY TYPE CODE TESTS RESULT OUT OF [...] 10 Performed By: #### L500.4050, L501.6710 #### [facility] [address] [place], [place], [address] CRP Collected: 09/14/2018 Status: F Source: ROHINI 9:30 AM [facility] REPOSITORY TYPE CODE TESTS RESULT OUT OF RANGE REFERENCE UNITS LAB L501.6710 0.0-3.0 mg/L High 5.62 C-REACTIVE PROT Result Comment: C-Reactive Protein (CRP) provides useful information for the diagnosis, therapy and monitoring of inflammatory processes and associated diseases. For the evaluation of Relative Risk for Cardiovascular Disease, a High Sensitivity CRP (HSCRP) should be ordered. Performed By: #### L500.4050, L501.6710 #### [facility] [address] [place], [address] VANCOMYCIN, TROUGH Collected: 09/14/2018 Status: F Source: ROHINI LEVEL 9:30 AM [facility] REPOSITORY Order Comment: Time Medication is to [...] (Ventilator/Healtcare Associated) -Sepsis PLEASE CONTACT PHARMACY SERVICES (#1101) FOR INTERPRETATION OF RESULTS. Performed By: #### L501.8820 #### [facility] [address] [place], [address] DISCHARGE INSTRUCTION Observed: 09/10/2018 Status: F Source: ROHINI 12:15 PM [facility] REPOSITORY [facility] Medical Records Department [address] [place] [address] Instructions for Home/Discharge Instructions 09/10/18 1212 MR#: [id number] Acct: [id number] Name: ROBLES CARRASQUILLO Rep #: [id number] : 1970 48 From: Sean Stevenson MD PCP: Eduardo Rubio, DO Status: ADM IN You will use [...] Days #50 tab PRN Reason: Severe Pain (6-10/10) Vancomycin IV 1,750 mg IV Q12H 40 Days #80 vial Primary Care Physician: Eduardo Peters DO [Primary Care Provider] - Test Results: Test results from this visit will be discussed in further detail at your follow-up appointment, if applicable. Please Follow Up With: Sean Stevenson MD When: one week. call [phone] for appt. Proposed Discharge Date: 09/10/18 09/10/18 1215 <Electronically signed by Sean Stevenson MD> Date Sean Stevenson MD CC: Jonn Pedroza MD; Eduardo Rubio DO; [facility] VANCOMYCIN, TROUGH Collected: 09/10/2018 Status: F Source: ROHINI LEVEL 9:20 AM [facility] REPOSITORY Order Comment: Comments: Please draw 09/10 [...] (Ventilator/Healtcare Associated) -Sepsis PLEASE CONTACT PHARMACY SERVICES (#[id number]) FOR INTERPRETATION OF RESULTS. Performed By: #### L501.8820 #### [facility] [address] [place], [address] CBC-COMPLETE BLOOD CNT Collected: 09/10/2018 Status: F Source: ROHINI NO DIFF 5:37 AM [facility] REPOSITORY TYPE CODE TESTS RESULT OUT OF [...] MPV 9.6 Performed By: #### L100.0500 #### [facility] [address] [place], [address] COMPREHENSIVE METABOLIC Collected: 09/10/2018 Status: F Source: ROHINI [facility] 5:37 AM [facility] REPOSITORY TYPE CODE TESTS RESULT OUT OF [...] Normal 6 Performed By: #### L500.4050 #### [facility] [address] [place], [address] HISTORY AND PHYSICAL Observed: 09/10/2018 Status: F Source: [place] EXAM 12:08 AM [facility] REPOSITORY [facility] Medical Records Department [address] [place] [address] History and Physical 09/07/18 2359 MR#: [id number] Acct: [id number] Name: ROBLES CARRASQUILLO Rep #: [id number] : 1970 48 From: Sean Stevenson MD PCP: Eduardo Rubio, Status: ADM IN Y Location: [facility] CM265-0 History and Physical Date of Admission: 09/08/18 [...] reconstruction with placement of submuscular saline tissue supervisor refining (800 ml) and placement DermACELL decellularized dermis graft (160 cm2). She tolerated the tissue expansion. On 05/05/18, she then underwent the next stage in the breast reconstruction process which was delayed right breast reconstruction with removal of saline tissue supervisor refining with replacement cohesive gel implant (800 ml) [...] Grave's disease, s/p thyroidectomy complete, 11/2001 hypothyroidism 2002 Ovarian cyst HTN Metabolic syndrome hypertriglyceridemia Obesity [...] Gastric bypass due to severe obesity 04/10/10 [place] 158lbs loss. Incisional hernia repair 07/03/10 panniculectomy [...] reconstruction with placement of submuscular saline tissue supervisor refining (800 ml) and placement DermACELL decellularized dermis graft (160 cm2) - 12/16/17 Delayed right breast reconstruction with removal of saline tissue supervisor refining with replacement cohesive gel implant (800 ml) [...] wound closure. removal of the saline tissue supervisor refining with replacement cohesive gel implant. Tissue that [...] F Source: ROHINI NO DIFF 5:16 AM [facility] REPOSITORY TYPE CODE TESTS RESULT OUT OF [...] MPV 9.9 Performed By: #### L100.0500 #### [facility] [address] [place] [address]. [place], [address] BASIC METABOLIC Collected: 09/09/2018 Status: F Source: ROHINI PROFILE (BMP) 5:16 AM [facility] REPOSITORY TYPE CODE TESTS RESULT OUT OF [...] 9 Performed By: #### L500.2500, L506.0500 #### [facility] [address] [place], [place], [address] PREALBUMIN Collected: 09/09/2018 Status: F Source: R[place]I 5:16 AM [facility] REPOSITORY TYPE CODE TESTS RESULT OUT OF RANGE REFERENCE UNITS LAB L506.0500 20.0-40.0 mg/dL Normal PREALBUMIN 25.1 Performed By: #### L500.2500, L506.0500 #### [facility] [address] [facility] [facility] [place], [address] BASIC METABOLIC Collected: 09/08/2018 Status: F Source: ROHINI PROFILE (BMP) 8:57 PM [facility] REPOSITORY Order Comment: Comments: NEED SCR FOR [...] GAP 10 Performed By: #### L500.2500 #### [facility] [address] [place], [address] Observed: 09/08/2018 Status: F Source: NILO SEGUNDO W/ 5:45 PM [facility] [id number] REPOSITORY Comments: Nonhealing Right Breast Ulcer Soft Tissue Is this test to exclude patient from TB Isolation? N Cu,Etcytd9615 TESTING PERFORMED AT [facility]. ORIGINAL REPORT ON FILE IN LAB CONTAINS ADDITIONAL TEST SITE INFORMATION. CUF No yeast or mold isolated after [address] [facility] ORIGINAL REPORT ON FILE IN LAB CONTAINS ADDITIONAL TEST SITE INFORMATION. Fungus Stain No yeast or mold observed. Performed By: #### M100.1500, M600.1900 #### [facility] [address] [place], [address] MRSA WOUND DNA BY Collected: 09/08/2018 Status: F Source: ROHINI PCR 5:28 PM [facility] REPOSITORY Order Comment: Comments: Nonhealing Right Breast Ulcer Specimen Source? ULCER TYPE CODE TESTS RESULT OUT OF RANGE REFERENCE UNITS LAB L8200.1100 Negative Normal MRSA Negative RESULT LAB L8200.1150 Negative Normal SA RESULT NEGATIVE Performed By: #### L8200.1075 #### [facility] [address] [facility] [place], [address] Observed: 09/08/2018 Status: F Source: ROHINI CULTURE, DEEP WOUND 5:26 PM [facility] REPOSITORY Order Date: 04/30/17 Comments: Nonhealing Right Breast Ulcer Soft Tissue Gram Stain Gram Stain 3+ Red Blood Cells No organisms seen Wound Culture No growth aerobically. Cult, Anaerobic No anaerobic bacteria isolated. Performed By: #### M100.1500, M600.1900 #### [facility] [address] [place], [address] ULCER Observed: 09/08/2018 Status: F Source: ROHINI 2:40 PM [facility] REPOSITORY Patient: ROBLES CARRASQUILLO : 1970 (48/F) Acct Num: [id number] Phys: Sean Stevenson MD Unit Num: [id number] Loc: MS3 OV126-3 Specimen: [id number] Received: 09/09/181101 Spec Type: ULCER TISSUES 1 [...] of ulceration. No mass lesion is identified. Pit Hoist Operator sections are submitted in three cassettes. / JOHN: latha 09/09/18 TC:2 CPT: 27822 HEADER OPERATION: Right breast ulcer excisional debridement, [...] inflammation and fibrosis. SJ:latha 09/10/18 Signed Andres William 09/10/18 <signature on file> Performed By: #### PUL #### [facility] [address] [place], [address] THYROID STIM HORMONE Collected: 08/28/2018 Status: F Source: ROHINI (TSH) 11:57 AM [facility] REPOSITORY TYPE CODE TESTS RESULT OUT OF RANGE REFERENCE UNITS LAB L501.9520 0.358-3.74 uIU/mL Normal TSH 1.72 Performed By: #### L501.9520, L506.0400 #### [facility] [address] [place], [address] T4 FREE DIRECT Collected: 08/28/2018 Status: F Source: ROHINI 11:57 AM [facility] REPOSITORY TYPE CODE TESTS RESULT OUT OF RANGE REFERENCE UNITS LAB L506.0400 0.76-1.46 ng/dL Normal T4 FREE 1.16 DIRECT Performed By: #### L501.9520, L506.0400 #### [facility] [address] [place], [address] Observed: 08/17/2018 Status: F Source: ROHINI CULTURE, WOUND 8:55 AM [facility] REPOSITORY Gram Stain Gram Stain 4+ Red Blood Cells Rare White Blood Cells No organisms seen Wound Culture Possible skin contamination, further Identification and sensitivity will be performed only by physician's request. ORGANISM 1: Gram positive igor Amount Growth 3+ ORGANISM 2: Coag Negative Staph Amount Growth Rare Performed By: #### M100.1400 #### [facility] [address] [place], [address] PLASTIC SURGERY Observed: 07/04/2018 Status: F Source: [place] VISIT REPORT 11:36 PM [facility] REPOSITORY [facility] [address] [place] [address] OFFICE VISIT Date of Service: 07/01/18 MR#: [id number] Acct: [id number] Name: ROBLES CARRASQUILLO Rep #: [id number] : 1970 Provider: Sean Stevenson MD Age/Sex: 48/F Location: [facility] [place] Status: Signed Intake Vital Signs07/01/18 Blood Pressure 125/83 H H 07/01/18 Blood Pressure Location Rt brachial 07/01/18 Blood Pressure Position Sitting 07/01/18 Respiratory Rate 18 07/01/18 Pulse Rate 107 H Intake Visit Reasons: postop surgery 05/05/18 and 05/19/18 Cytotechnologist Required: No Accompanied by: None Is patient [...] breast reconstruction with removal of saline tissue supervisor refining with replacement cohesive gel implant (800 ml) [...] removal, prophylactic Z40.01 Former smoker Z87.891 07/04/18 2336 <Electronically signed by Sean Stevenson MD> Date Sean Stevenson MD Cosigner Signature: Date (if applicable) CC: ERYTHROCYTE SED RATE Collected: 06/29/2018 Status: F Source: ROHINI 10:45 AM [facility] REPOSITORY TYPE CODE TESTS RESULT OUT OF RANGE REFERENCE UNITS LAB L102.0000 0-20 mm/hr High SED RATE 72 Performed By: #### L101.9900, L100.0500 #### [facility] [address] [place], [place], [address] CBC-COMPLETE BLOOD CNT Collected: 06/29/2018 Status: F Source: ROHINI NO DIFF 10:45 AM [facility] REPOSITORY TYPE CODE TESTS RESULT OUT OF [...] 9.6 Performed By: #### L101.9900, L100.0500 #### [facility] [address] [place], [place], [address] BASIC METABOLIC Collected: 06/29/2018 Status: F Source: ROHINI PROFILE (BMP) 10:45 AM [facility] REPOSITORY TYPE CODE TESTS RESULT OUT OF [...] GAP 8 Performed By: #### L500.2500 #### [facility] [address] [place], [place], [address] ERYTHROCYTE SED RATE Collected: 06/22/2018 Status: F Source: ROHINI 10:45 AM [facility] REPOSITORY TYPE CODE TESTS RESULT OUT OF RANGE REFERENCE UNITS LAB L102.0000 0-20 mm/hr High SED RATE 89 Performed By: #### L101.9900, L100.0500 #### [facility] [address] [place], [place], [address] CBC-COMPLETE BLOOD CNT Collected: 06/22/2018 Status: F Source: ROHINI NO DIFF 10:45 AM [facility] REPOSITORY TYPE CODE TESTS RESULT OUT OF [...] 9.8 Performed By: #### L101.9900, L100.0500 #### [facility] [address] [place], [address] BASIC METABOLIC Collected: 06/22/2018 Status: F Source: ROH[place]I PROFILE (BMP) 10:45 AM [facility] REPOSITORY TYPE CODE TESTS RESULT OUT OF [...] GAP 4 Performed By: #### L500.2500 #### [facility] [address] [place], [place], [address] BASIC METABOLIC Collected: 06/15/2018 Status: F Source: ROHINI PROFILE (BMP) 4:21 PM [facility] REPOSITORY TYPE CODE TESTS RESULT OUT OF [...] GAP 7 Performed By: #### L500.2500 #### [facility] [address] [place], [place], [address] CBC-COMPLETE BLOOD CNT Collected: 06/15/2018 Status: F Source: ROHINI NO DIFF 4:21 PM [facility] REPOSITORY TYPE CODE TESTS RESULT OUT OF [...] 9.6 Performed By: #### L100.0500, L101.9900 #### [facility] [address] [place], [address] ERYTHROCYTE SED RATE Collected: 06/15/2018 Status: F Source: [place] 4:21 PM [facility] REPOSITORY TYPE CODE TESTS RESULT OUT OF RANGE REFERENCE UNITS LAB L102.0000 0-20 mm/hr High SED RATE 76 Performed By: #### L100.0500, L101.9900 #### [facility] [address] [place], [address] PLASTIC SURGERY Observed: 06/10/2018 Status: F Source: [place] VISIT REPORT 2:19 PM [facility] REPOSITORY [facility] [address] [place] [address] OFFICE VISIT Date of Service: 06/04/18 MR#: [id number] Acct: [id number] Name: ROBLES CARRASQUILLO Rep #: [id number] : 1970 Provider: Sean Stevenson MD Age/Sex: 48/F Location: [facility] Status: Signed Intake Vital Signs06/04/18 Blood Pressure 111/76 06/04/18 Blood Pressure Location Rt brachial 06/04/18 Blood Pressure Position Sitting 06/04/18 Respiratory Rate 18 Intake Visit Reasons: post op surgery 05/05/18 and 05/19/18 Cytotechnologist Required: No Accompanied by: None Is patient [...] breast reconstruction with removal of saline tissue supervisor refining with replacement cohesive gel implant (800 ml) [...] Cosigner Signature: Date (if applicable) Huma Infante DIPLOMATIC INTERPRETER/TRANSLATOR-C CC: BASIC METABOLIC Collected: 06/08/2018 Status: F Source: ROHINI PROFILE (BMP) 12:10 PM [facility] REPOSITORY TYPE CODE TESTS RESULT OUT OF [...] GAP 7 Performed By: #### L500.2500 #### [facility] [address] [place], [address] CBC-COMPLETE BLOOD CNT Collected: 06/08/2018 Status: F Source: ROHINI NO DIFF 12:10 PM [facility] REPOSITORY TYPE CODE TESTS RESULT OUT OF [...] 9.9 Performed By: #### L100.0500, L101.9900 #### [facility] [address] [place], [place], [address] ERYTHROCYTE SED RATE Collected: 06/08/2018 Status: F Source: ROHINI 12:10 PM [facility] REPOSITORY TYPE CODE TESTS RESULT OUT OF RANGE REFERENCE UNITS LAB L102.0000 0-20 mm/hr High SED RATE 98 Performed By: #### L100.0500, L101.9900 #### [facility] [address] [place], [place], [address] CBC-COMPLETE BLOOD CNT Collected: 06/02/2018 Status: F Source: ROHINI NO DIFF 1:00 PM [facility] REPOSITORY TYPE CODE TESTS RESULT OUT OF [...] 9.8 Performed By: #### L100.0500, L101.9900 #### [facility] [address] [place], [address] ERYTHROCYTE SED RATE Collected: 06/02/2018 Status: F Source: [place]I 1:00 PM [facility] REPOSITORY TYPE CODE TESTS RESULT OUT OF RANGE REFERENCE UNITS LAB L102.0000 0-20 mm/hr High SED RATE 60 Performed By: #### L100.0500, L101.9900 #### [facility] [address] [place], [address] BASIC METABOLIC Collected: 06/02/2018 Status: F Source: ROH[place]I PROFILE (BMP) 1:00 PM [facility] REPOSITORY TYPE CODE TESTS RESULT OUT OF [...] GAP 10 Performed By: #### L500.2500 #### [facility] [address] [place], [address] PLASTIC SURGERY Observed: 05/29/2018 Status: F Source: [place] VISIT REPORT 3:24 PM [facility] REPOSITORY [facility] [address] [place] [address] OFFICE VISIT Date of Service: 05/19/18 MR#: [id number] Acct: [id number] Name: ROBLES CARRASQUILLO Rep #: [id number] : 1970 Provider: Sean Stevenson MD Age/Sex: 48/F Location: [facility] Status: Signed Intake Vital Signs05/19/18 Blood Pressure 165/119 05/19/18 Blood Pressure Location Rt radial 05/19/18 Blood Pressure Position Sitting 05/19/18 Respiratory Rate 14 Intake Visit Reasons: post op surgery 05/05/18 Cytotechnologist Required: No Accompanied by: None Is patient [...] breast reconstruction with removal of saline tissue supervisor refining with replacement cohesive gel implant (800 ml) [...] Sean Stevenson MD> Date Sean Stevenson MD 05/29/18 1524<Electronically signed by Huma SEE> Cosigner Signature: Date (if applicable) Huma Infante CC: OPERATIVE REPORT Observed: 05/29/2018 Status: F Source: [place] 2:17 PM [facility] REPOSITORY [facility] Medical Records Department [address] [place] [address] Operative Report 05/19/18 2315 MR#: [id number] Acct: [id number] Name: ROBLES CARRASQUILLO Rep #: [id number] : 1970 48 From: Sean Stevenson MD PCP: Eduardo Rubio DO Status: DIS IN Y Location: [facility] VB243-6 Report of Operation Date of Procedure: 05/19/18 Pre-Operative Diagnosis: 1. Infected right breast implant reconstruction with abscess. 2. History of recurrent infections bilateral breasts. 3. s/p completion mastectomy right breast. 4. Acquired absence right breast. 5. Disproportion reconstructed breasts. 6. Former smoker. 7. MRSA. 8. s/p delayed right breast reconstruction with removal of saline tissue supervisor refining with replacement cohesive gel implant (800 ml) [...] breast reconstruction with removal of saline tissue supervisor refining with replacement cohesive gel implant (800 ml) [...] - 17 x 35 x 5 cm. upper trimmer: Rony Gotti. Type of Anesthesia:: General Specimen's [...] Yes Code Visit Surgery Charges CPT - 75795 ICD-10 - N61.1, T85.79xA, Z90.11, N65.1, N65.0, Z86.14, Z98.82, Z40.01 61166 N61.1, T85.79xA, Z90.11, N65.1, N65.0, Z86.14, Z98.82, Z40.01 05/29/18 1417 <Electronically signed by Sean Stevenson MD> Date Sean Stevenson MD CC: Jonn Pedroza MD; Sean Stevenson MD; Eduardo Rubio DO; Alexandre Ivan MD; Matty Quiroz MD; [facility] Signed PROGRESS Observed: 05/28/2018 Status: COMPLETED Source: [place] 11:16 AM [facility] REPOSITORY O ID: [id number] Author: Rhona Montiel (Zachary Castro Service: (none) Author Type: Nurse Practitioner Type: [...] through Dr. Stevenson. VAC dressing changes by [facility], will be seeing wound clinic as well. Thyroid: recent medication adjustments d/t elevated TSH Denies CP, SOB, dizziness, lightheadedness, weakness, palpitations, fever, chills, N/V, change in appetite. ROS as above, otherwise non-contributory. Reviewed resent labs and Dr. Steevnson notes. Reviewed PMHx, PSHx, social Hx, medications [...] diagnosis) - follow with Dr. Stevenson - [facility] 2. Acquired hypothyroidism - ICD9: 244.9, ICD10: E03.9 - check TSH - f/u in 3 months and PRN Rhona Castro APRN.KNIFE SETTER ASSEMBLER THYROID STIM HORMONE Collected: 05/27/2018 Status: F Source: [place] (TSH) 12:00 AM [facility] REPOSITORY TYPE CODE TESTS RESULT OUT OF RANGE REFERENCE UNITS LAB L501.9520 0.358-3.74 uIU/mL High TSH 19.00 Performed By: #### L501.9520 #### [facility] [address] [place], [address] CNOV Observed: 05/26/2018 Status: COMPLETED Source: [place] 2:20 PM [facility] REPOSITORY Office Visit (FAMPWS) ROBLES CARRASQUILLO ([id number]) 1970 F Date Time Provider Department 05/26/18 [...] through Dr. Stevenson. VAC dressing changes by [facility], will be seeing wound clinic as well. [...] - follow with Dr. Stevenson - continue [facility] 2. Acquired hypothyroidism - ICD9: 244.9, [...] PRESCRIPTIONObtain TSH Fax results to Rhona Castro KNIFE SETTER ASSEMBLER to [phone]: 1 EachRfl: 0 Prescriptions as of 05/26/2018 [...] Fax results to Rhona Castro CNP to [phone] Encounter Status:Closed by RHONA CASTRO CNP on 05/28/18 ERYTHROCYTE SED RATE Collected: 05/25/2018 Status: F Source: [place] 10:32 AM [facility] REPOSITORY TYPE CODE TESTS RESULT OUT OF RANGE REFERENCE UNITS LAB L102.0000 0-20 mm/hr High SED RATE 67 Performed By: #### L101.9900, L100.0500 #### [facility] [address] [place], [address] CBC-COMPLETE BLOOD CNT Collected: 05/25/2018 Status: F Source: [place] NO DIFF 10:32 AM [facility] REPOSITORY TYPE CODE TESTS RESULT OUT OF [...] 9.7 Performed By: #### L101.9900, L100.0500 #### [facility] [address] [place], [address] BASIC METABOLIC Collected: 05/25/2018 Status: F Source: [place] PROFILE (BMP) 10:32 AM [facility] REPOSITORY TYPE CODE TESTS RESULT OUT OF [...] GAP 9 Performed By: #### L500.2500 #### [facility] [place], [address] VANCOMYCIN, TROUGH Collected: 05/25/2018 Status: F Source: [place] LEVEL 10:32 AM [facility] REPOSITORY Order Comment: Time Medication is to [...] (Ventilator/Healtcare Associated) -Sepsis PLEASE CONTACT PHARMACY SERVICES (#[id number]) FOR INTERPRETATION OF RESULTS. Performed By: #### L501.8820 #### [facility] [address] [place], [address] PLASTIC SURGERY Observed: 05/25/2018 Status: F Source: [place] VISIT REPORT 10:31 AM [facility] REPOSITORY [facility] [address] [place] [address] OFFICE VISIT Date of Service: 05/12/18 MR#: [id number] Acct: [id number] Name: ROBLES CARRASQUILLO Rep #: [id number] : 1970 Provider: Sean Stevenson MD Age/Sex: 48/F Location: [facility] Status: Signed Intake Vital Signs05/12/18 Height 5 ft 6 in 05/12/18 Weight: 294 lb 2 oz Intake Visit Reasons: post op surgery 05/05/2018 Cytotechnologist Required: No Accompanied by: Daughter Is patient [...] breast reconstruction with removal of saline tissue supervisor refining with replacement cohesive gel implant (800 ml) [...] Breast removal, prophylactic Z40.01 Former smoker Z87.891 05/24/182227 <Electronically signed by Sean Stevenson MD> Date Sean Stevenson MD 05/25/18 1031<Electronically signed by Huma SEE> Cosigner Signature: Date (if applicable) Huma Infante CC: DISCHARGE SUMMARY Observed: 05/25/2018 Status: F Source: [place] 1:30 AM [facility] REPOSITORY [facility] Medical Records Department [address] [place] [address] Discharge Summary 05/21/18 1735 MR#: [id number] Acct: [id number] Name: ROBLES CARRASQUILLO Rep #: [id number] : 1970 48 From: Sean Stevenson MD PCP: Eduardo Rubio DO Status: DIS IN Y Location: [facility] [place] US681-0 Discharge Date and Diagnosis Date of Admission: [...] Imaging Results: None. Consultations 05/20/18 06:46 Consult: Onc/Wound/petroleum engineer Routine Comment: Reason for Consult:: wound vac [...] breast reconstruction with removal of saline tissue supervisor refining with replacement cohesive gel implant (800 ml) [...] Days #60 tab PRN Reason: Severe Pain (-07/08) Vancomycin IV 2,000 mg IV Q12H #28 vial Diazepam [Valium] 5 mg PO 4X/DAY PRN #30 tab PRN Reason: spasms Primary Care Physician: Eduardo Peters DO [Primary Care Provider] - Please Follow Up With: Sean Stevenson MD When: 2 weeks at the wound center. call [phone] for appt. Disposition: Home with Home Health [...] 05/23/2018 Status: F Source: [place] 9:35 PM [facility] REPOSITORY [facility] Medical Records Department [address] [place] [address] Instructions for Home/Discharge Instructions 05/20/18 1543 MR#: [id number] Acct: [id number] Name: ROBLES CARRASQUILLO Rep #: [id number] : 1970 48 From: Sean Stevenson MD PCP: Eduardo Rubio, Status: DIS IN You will use the [...] Days #60 tab PRN Reason: Severe Pain (6-10/) Vancomycin IV 2,000 mg IV Q12H #28 vial Diazepam [Valium] 5 mg PO 4X/DAY PRN #30 tab PRN Reason: spasms Primary Care Physician: Eduardo Peters DO [Primary Care Provider] - Test Results: Test results from this visit will be discussed in further detail at your follow-up appointment, if applicable. Please Follow Up With: Sean Stevenson MD When: 2 weeks at the wound center. call [phone] for appt. Proposed Discharge Date: 05/21/18 05/23/182134 <Electronically signed by Sean tSevenson MD> Date Sean Stevenson MD CC: Jonn Pedroza MD; Eduardo Rubio DO; Alexandre Ivan MD; Matty Quiroz MD; [facility] CBC-COMPLETE BLOOD CNT Collected: 05/21/2018 Status: F Source: [place] NO DIFF 7:40 AM [facility] REPOSITORY TYPE CODE TESTS RESULT OUT OF [...] MPV 9.5 Performed By: #### L100.0500 #### [facility] [address] [place], [address] BASIC METABOLIC Collected: 05/21/2018 Status: F Source: [place] PROFILE (BMP) 7:40 AM [facility] REPOSITORY TYPE CODE TESTS RESULT OUT OF [...] Normal 7 Performed By: #### L500.2500 #### [facility] [address] [place], [place], [address] VANCOMYCIN, TROUGH Collected: 05/21/2018 Status: F Source: [place] LEVEL 7:40 AM [facility] REPOSITORY Order Comment: Has pt arrived? Y [...] (Ventilator/Healtcare Associated) -Sepsis PLEASE CONTACT PHARMACY SERVICES (#[id number]) FOR INTERPRETATION OF RESULTS. Performed By: #### L501.8820 #### [facility] [address] [place], [address] CONSULTATION Observed: 05/20/2018 Status: F Source: [place] 3:42 PM [facility] REPOSITORY [facility] Medical Records Department [address] [place] [address] Consultation 05/20/18 1513 MR#: [id number] Acct: [id number] Name: ROBLES CARRASQUILLO Rep #: [id number] : 1970 48 From: Alexandre Ivan MD PCP: Eduardo Rubio DO Status: ADM IN Y Location: [facility] [place] RR140-9 Problem List (1) History of Graves' disease Status: Chronic Comment: treated with radiation ablation (2) HTN (hypertension) Status: Chronic Qualifiers: Hypertension type: essential hypertension Qualified Code(s): I10 - Essential (primary) hypertension (3) Anemia Status: Chronic (4) Personal hx of gastric bypass Status: Chronic Comment: 2009 (5) Morbid obesity Status: Chronic (6) Depression [...] Gastric bypass status for obesity Z98.84 04/10/2010 [place] 158 LBS LOSS HERNIA REPAIR WITH MESH [...] health Code Visit Inpatient E AND M: 02158 Init Hosp L2 05/20/18 1542 <Electronically signed by Alexandre Ivan MD> Date Alexandre Ivan MD Cosigner Signature (if applicable): Date CC: Sean Stevenson MD; Eduardo Rubio DO; Alexandre Ivna MD; Matty Quiroz MD Signed CONSULTATION Observed: 05/20/2018 Status: F Source: [place] 11:53 AM [facility] REPOSITORY [facility] Medical Records Department [address] [place] [address] Consultation 05/20/18 1143 MR#: [id number] Acct: [id number] Name: ROBLES CARRASQUILLO Rep #: [id number] : 1970 48 From: Matty Quiroz MD PCP: Eduardo Rubio DO Status: ADM IN Y Location: MS2 SB711-1 Problem List (1) Abscess of right breast [...] Did well, then taken back for tissue supervisor refining placement. Given 6 week course of iv vanc at that time more as a preventative measure, and then picc removed and she was doing well. 2 weeks ago on 05/05/18, had supervisor refining removed and implant placed. Picc was put [...] cx pending. Will follow, thank you. 05/20/18 1153 <Electronically signed by Matty Quiroz MD> Date Matty Quiroz MD Cosigner Signature (if applicable): Date CC: Phoebe Escoto MD; Jonn Chang MD; Edilma Ochoa MD; Sean Stevenson MD; Eduardo Rubio DO; Edvin Goncalves M.D.; Alexandre Ivan MD; Oscar Monsivais M.D.; Matty Quiroz MD Signed CBC-COMPLETE BLOOD CNT Collected: 05/20/2018 Status: F Source: [place] NO DIFF 4:20 AM [facility] REPOSITORY TYPE CODE TESTS RESULT OUT OF [...] 9.8 Performed By: #### L100.0500, L101.9900 #### [facility] [address] [place], [place], [address] ERYTHROCYTE SED RATE Collected: 05/20/2018 Status: F Source: [place] 4:20 AM [facility] REPOSITORY TYPE CODE TESTS RESULT OUT OF RANGE REFERENCE UNITS LAB L102.0000 0-20 mm/hr High SED RATE 88 Performed By: #### L100.0500, L101.9900 #### [facility] [address] [place], [address] BASIC METABOLIC Collected: 05/20/2018 Status: F Source: [place] PROFILE (BMP) 4:20 AM [facility] REPOSITORY TYPE CODE TESTS RESULT OUT OF [...] Performed By: #### L500.2500, L501.6710, L506.0500 #### [facility] [address] [place], [address] CRP Collected: 05/20/2018 Status: F Source: [place] 4:20 AM [facility] REPOSITORY TYPE CODE TESTS RESULT OUT OF RANGE REFERENCE UNITS LAB L501.6710 0.0-3.0 mg/L High 138.00 C-REACTIVE PROT Result Comment: C-Reactive Protein (CRP) provides useful information for the diagnosis, therapy and monitoring of inflammatory processes and associated diseases. For the evaluation of Relative Risk for Cardiovascular Disease, a High Sensitivity CRP (HSCRP) should be ordered. Performed By: #### L500.2500, L501.6710, L506.0500 #### [facility] [address] [place], [address] PREALBUMIN Collected: 05/20/2018 Status: F Source: [place] 4:20 AM [facility] REPOSITORY TYPE CODE TESTS RESULT OUT OF REFERENCE UNITS RANGE LAB L506.0500 20.0-40.0 mg/dL Low PREALBUMIN 12.6 Performed By: #### L500.2500, L501.6710, L506.0500 #### [facility] [address] [place], [address] MRSA WOUND DNA BY Collected: 05/19/2018 Status: F Source: [place] PCR 7:50 PM [facility] REPOSITORY Order Comment: Has pt arrived? Y Specimen Source? RIGHT BREAST ABSCESS TYPE CODE TESTS RESULT OUT OF RANGE REFERENCE UNITS LAB L8200.1100 Negative Normal MRSA Negative RESULT LAB L8200.1150 Negative Normal SA RESULT NEGATIVE Performed By: #### L8200.1075 #### [facility] [address] [facility] [place], [address] Observed: 05/19/2018 Status: F Source: [place] CULTURE, DEEP WOUND 7:50 PM [facility] REPOSITORY Order Date: 04/30/17 Has pt arrived? [...] <=20 S (NF) indicates non-formulary drug at [facility]. Approval by Infectious Disease Specialist required before non-formulary drugs may be ordered and/or dispensed. Cult, Anaerobic No anaerobic bacteria isolated. Performed By: #### M100.1500 #### [facility] [address] [place], [address] ABSCESS (CHOOSE Observed: 05/19/2018 Status: F Source: [facility]) 2:45 PM [facility] REPOSITORY Patient: ROBLES CARRASQUILLO : 1970 (48/F) Acct Num: [id number] Phys: Sean Stevenson MD Unit Num: [id number] Loc: MS2 XZ122-3 Specimen: [id number] Received: 05/20/18814 Spec Type: Abscess TISSUES TISSUES: A. Right breast, NOS B. FOREIGN BODY - BREAST IMPLANT GROSS DESCRIPTION A - Received is one container labeled with the patient's name and not further designated. The specimen consists of 11 fragments of soft tissue, indurated tissue and blood clots aggregating to 15 x 13 x 2 cm. Serial sections do not reveal mass lesions. Pit Hoist Operator sections are submitted in three cassettes. B [...] are submitted. / AM:latha 05/20/18 TC:2 CPT: 90874, 439[address] HEADER OPERATION: Removal, breast implant PRE-OP DIAGNOSIS: [...] on file> Performed By: #### SEBAS #### [facility] [address] [place], [address] COMPREHENSIVE METABOLIC Collected: 05/18/2018 Status: F Source: [place] SOL 8:20 AM [facility] REPOSITORY TYPE CODE TESTS RESULT OUT OF [...] 12 Performed By: #### L500.4050, L501.6710 #### [facility] [address] [facility]. [place], [place], [address] CRP Collected: 05/18/2018 Status: F Source: [place] 8:20 AM [facility] REPOSITORY TYPE CODE TESTS RESULT OUT OF RANGE REFERENCE UNITS LAB L501.6710 0.0-3.0 mg/L High 185.00 C-REACTIVE PROT Result Comment: C-Reactive Protein (CRP) provides useful information for the diagnosis, therapy and monitoring of inflammatory processes and associated diseases. For the evaluation of Relative Risk for Cardiovascular Disease, a High Sensitivity CRP (HSCRP) should be ordered. Performed By: #### L500.4050, L501.6710 #### [facility] [address] [place], [place], [address] CBC-COMPLETE BLOOD CNT Collected: 05/18/2018 Status: F Source: [place] NO DIFF 8:20 AM [facility] REPOSITORY TYPE CODE TESTS RESULT OUT OF [...] 10.3 Performed By: #### L100.0500, L101.9900 #### [facility] [address] [place], [address] ERYTHROCYTE SED RATE Collected: 05/18/2018 Status: F Source: [place] 8:20 AM [facility] REPOSITORY TYPE CODE TESTS RESULT OUT OF RANGE REFERENCE UNITS LAB L102.0000 0-20 mm/hr High SED RATE 77 Performed By: #### L100.0500, L101.9900 #### [facility] [address] [place], [address] VANCOMYCIN, TROUGH Collected: 05/18/2018 Status: F Source: [place] LEVEL 8:20 AM [facility] REPOSITORY Order Comment: Time Medication is to [...] (Ventilator/Healtcare Associated) -Sepsis PLEASE CONTACT PHARMACY SERVICES (#[id number]) FOR INTERPRETATION OF RESULTS. Performed By: #### L501.8820 #### [facility] [address] [place], [address] ERYTHROCYTE SED RATE Collected: 05/11/2018 Status: F Source: [place] 8:30 AM [facility] REPOSITORY TYPE CODE TESTS RESULT OUT OF RANGE REFERENCE UNITS LAB L102.0000 0-20 mm/hr High SED RATE 66 Performed By: #### L101.9900, L100.0500 #### [facility] [address] [place], [place], [address] CBC-COMPLETE BLOOD CNT Collected: 05/11/2018 Status: F Source: [place] NO DIFF 8:30 AM [facility] REPOSITORY TYPE CODE TESTS RESULT OUT OF [...] 10.3 Performed By: #### L101.9900, L100.0500 #### [facility] [address] [place], [place], [address] VANCOMYCIN, TROUGH Collected: 05/11/2018 Status: F Source: [facility] 8:30 AM [facility] REPOSITORY Order Comment: Send Results To: pharmacy to dose. also fax results to [phone]. Reason for Laboratory Test MRSA Time Medication [...] (Ventilator/Healtcare Associated) -Sepsis PLEASE CONTACT PHARMACY SERVICES (#[id number]) FOR INTERPRETATION OF RESULTS. Performed By: #### L501.8820 #### [facility] [address] [place], [place], [address] COMPREHENSIVE METABOLIC Collected: 05/11/2018 Status: F Source: [place] PROFIL 8:30 AM [facility] REPOSITORY TYPE CODE TESTS RESULT OUT OF [...] 11 Performed By: #### L500.4050, L501.6710 #### [facility] [address] [place], [place], [address] CRP Collected: 05/11/2018 Status: F Source: [place] 8:30 AM [facility] REPOSITORY TYPE CODE TESTS RESULT OUT OF RANGE REFERENCE UNITS LAB L501.6710 0.0-3.0 mg/L High 11.60 C-REACTIVE PROT Result Comment: C-Reactive Protein (CRP) provides useful information for the diagnosis, therapy and monitoring of inflammatory processes and associated diseases. For the evaluation of Relative Risk for Cardiovascular Disease, a High Sensitivity CRP (HSCRP) should be ordered. Performed By: #### L500.4050, L501.6710 #### [facility] [address] [place], [address] HISTORY AND PHYSICAL Observed: 05/08/2018 Status: F Source: [place] EXAM 1:16 PM [facility] REPOSITORY [facility] Medical Records Department [address] [place] [address] History and Physical 05/04/18 1754 MR#: [id number] Acct: [id number] Name: ROBLES CARRASQUILLO Rep #: [id number] : 1970 48 From: Sean Stevenson MD PCP: Eduardo Rubio, DO Status: DIS IN Y Location: [facility] QY476-2 History and Physical Date of Admission: 05/05/18 [...] reconstruction with placement of submuscular saline tissue supervisor refining (800 ml) and placement DermACELL decellularized dermis [...] Gastric bypass due to severe obesity 04/10/10 [place] 158lbs loss. Incisional hernia repair 07/03/10 panniculectomy [...] reconstruction with placement of submuscular saline tissue supervisor refining (800 ml) and placement DermACELL decellularized dermis [...] No clinical evidence of infection. Palpable tissue supervisor refining in place. Lungs: clear bilaterally to auscultation. [...] which is removal of the saline tissue supervisor refining with replacement cohesive gel implant. Will also [...] I will proceed with the saline tissue supervisor refining next month because of her recent MRSA [...] were included in a form from the [employer] [employer]. 05/08/18 1316 <Electronically signed by Sean Stevenson MD> Date Sean Stevenson MD Cosigner Signature: Date (if applicable) CC: Jonn Pedroza MD; Sean Stevenson MD; Eduardo Rubio DO Signed OPERATIVE REPORT Observed: 05/08/2018 Status: F Source: [place] 1:13 PM [facility] REPOSITORY [facility] Medical Records Department [address] [place] [address] Operative Report 05/05/18 2242 MR#: [id number] Acct: [id number] Name: ROBLES CARRASQUILLO Rep #: [id number] : 1970 48 From: Sean Stevenson MD PCP: Eduardo Rubio DO Status: DIS IN Y Location: [facility] RW066-6 Report of Operation Date of Procedure: 05/05/18 [...] breast reconstruction with removal of saline tissue supervisor refining with replacement cohesive gel implant (800 ml) [...] reconstruction with placement of submuscular saline tissue supervisor refining (800 ml) and placement DermACELL decellularized dermis [...] were included in a form from the [place] [employer]. IV Fluids - 2000 ml. Urine Output - 150 ml. I used [place] MemoryGel Breast Implant Smooth Round Ultra High Profile, (800 ml). Reference Number - [id number]. Lot Number - [id number]. Serial Number - [id number]. I used Alloderm Select Acellular Dermal Matrix Graft, Contour Medium, Perforated, Thick, (132 cm2). Reference Number - [id number]. Lot Number - [id number]. Expiration - May,. I used Kiya absorbable hemostat, (I used 2 vials). Reference Number - [id number]. Lot Number - [id number]. Expiration - January 24, 2023. upper trimmer: Danita Das. Type of Anesthesia:: General Specimen's [...] capsulotomy was performed and the saline tissue supervisor refining was removed. No abnormal fluid collection was [...] back in the supine position and the supervisor refining was removed. I then tried a 750 [...] mattress interrupted sutures. I then placed the [place] MemoryGel Breast Implant, smooth round ultra high [...] she will need IV antibiotics. Grafts/Implants Used: [place] MemoryGel Breast Implant and Alloderm acellular dermal matrix graft. - Complications None. - Admit VTE Documentation VTE Present on Admission: No VTE Mechan Device Prophylaxis: SCD's VTE Pharm Prophylaxis ordered?: Yes Code Visit Surgery Charges CPT - 50504 ICD-10 - N61.1, Z90.11, Z40.01, N65.1, Z86.14, N65.0, L98.492, Z87.891 64630 N61.1, Z90.11, Z40.01, N65.0, L98.492, N65.1, Z86.14, Z87.891 21271 N61.1, Z90.11, Z40.01, N65.1, Z86.14, N65.0, L98.492, Z87.891 05/08/18 1313 <Electronically signed by Sean Stevenson MD> Date Sean Stevenson MD CC: Jonn Pedroza MD; Sean Stevenson MD; Eduardo Rubio DO Signed DISCHARGE INSTRUCTION Observed: 05/07/2018 Status: F Source: [place] 11:32 AM [facility] REPOSITORY [facility] Medical Records Department [address] [place] [address] Instructions for Home/Discharge Instructions 05/07/18 1126 MR#: [id number] Acct: [id number] Name: ROBLES CARRASQUILLO Rep #: [id number] : 1970 48 From: Sean Stevenson MD [...] Days #40 tab PRN Reason: Severe Pain (6-07/08) Vancomycin IV 1,750 mg IV Q12H 40 Days #80 vial Diazepam [Valium] 5 mg PO 4X/DAY PRN #20 tab PRN Reason: spasms Primary Care Physician: Eduardo Peters DO [Primary Care Provider] - Test Results: Test results from this visit will be discussed in further detail at your follow-up appointment, if applicable. Please Follow Up With: Sean Stevenson MD When: one week. call [phone] for appt. Proposed Discharge Date: 05/07/18 05/07/18 1132 <Electronically signed by Sean Stevenson MD> Date Sean Stevenson MD CC: Jonn Pedroza MD; Eduardo Rubio DO BASIC METABOLIC Collected: 05/07/2018 Status: F Source: [place] PROFILE (BMP) 5:40 AM [facility] REPOSITORY TYPE CODE TESTS RESULT OUT OF [...] Normal 9 Performed By: #### L500.2500 #### [facility] [address] [facility] [place], [address] CBC-COMPLETE BLOOD CNT Collected: 05/07/2018 Status: F Source: [place] NO DIFF 5:40 AM [facility] REPOSITORY TYPE CODE TESTS RESULT OUT OF [...] MPV 10.4 Performed By: #### L100.0500 #### [facility] [address] [facility] [address] [place], [place], [address] VANCOMYCIN, TROUGH Collected: 05/06/2018 Status: F Source: [place] LEVEL 6:27 PM [facility] REPOSITORY Order Comment: Time Medication is to [...] (Ventilator/Healtcare Associated) -Sepsis PLEASE CONTACT PHARMACY SERVICES (#[id number]) FOR INTERPRETATION OF RESULTS. Performed By: #### L501.8820 #### [facility] [address] [place], [address] BASIC METABOLIC Collected: 05/06/2018 Status: F Source: [place] PROFILE ([facility]) 6:46 AM [facility] REPOSITORY TYPE CODE TESTS RESULT OUT OF [...] 7 Performed By: #### L500.2500, L506.0500 #### [facility] [address] [place], [place], [address] PREALBUMIN Collected: 05/06/2018 Status: F Source: [place] 6:46 AM [facility] REPOSITORY TYPE CODE TESTS RESULT OUT OF RANGE REFERENCE UNITS LAB L506.0500 20.0-40.0 mg/dL Normal PREALBUMIN 29.5 Performed By: #### L500.2500, L506.0500 #### [facility] [address] [place], [address] CBC-COMPLETE BLOOD CNT Collected: 05/06/2018 Status: F Source: [place] NO DIFF 6:46 AM [facility] REPOSITORY TYPE CODE TESTS RESULT OUT OF [...] MPV 9.8 Performed By: #### L100.0500 #### [facility] [address] [facility] [address] [place], [place], [address] MRSA WOUND DNA BY Collected: 05/05/2018 Status: F Source: [place] PCR 1:37 PM [facility] REPOSITORY Order Comment: Comments: COLECTED IN OR RIGHT BREAST TISSUE Specimen Source? SWAB, RIGHT BREAST TISSUE TYPE CODE TESTS RESULT OUT OF RANGE REFERENCE UNITS LAB L8200.1100 Negative Normal MRSA Negative RESULT LAB L8200.1150 Negative Normal SA RESULT NEGATIVE Performed By: #### L8200.1075 #### [facility] [address] [facility] [place], [address] Observed: 05/05/2018 Status: F Source: [place] CULTURE, DEEP WOUND 1:37 PM [facility] REPOSITORY Order Date: 04/30/17 Comments: COLLECTED IN OR RIGHT BREAST TISSUE Gram Stain Gram Stain No organisms seen Wound Culture No growth aerobically. Cult, Anaerobic No growth in 5 days. Performed By: #### M100.1500 #### [place] [facility] [address] [facility] [place], [place], [address] Observed: 05/05/2018 Status: F Source: [place] CULTURE, FUNGUS W/ 1:37 PM [facility] [id number] REPOSITORY Comments: COLLECTED IN OR RIGHT BREAST TISSUE Is this test to exclude patient from TB Isolation? N Cu,[id number] [facility]. ORIGINAL REPORT ON FILE IN LAB CONTAINS ADDITIONAL TEST SITE INFORMATION. CUF No yeast or mold isolated after [address] TESTING PERFORMED AT [facility]. ORIGINAL REPORT ON FILE IN LAB CONTAINS ADDITIONAL TEST SITE INFORMATION. Fungus Stain No yeast or mold observed. Performed By: #### M600.1900 #### [place] [facility] [address] [place], [address] BREAST MASTECTOMY Observed: 05/05/2018 Status: F Source: [place] (CHOOSE SIDE 9:30 AM [facility] REPOSITORY Patient: ROBLES CARRASQUILLO : 1970 (48/F) Acct Num: [id number] Phys: Sean Stevenson MD Unit Num: [id number] Loc: MS3 DH978-3 Specimen: [id number] Received: 05/05/18 - 160 Spec Type: BREAST TISSUES TISSUES: Right breast, [...] aggregate 13 x 8 x 0.4 cm. Pit Hoist Operator sections are submitted in four cassettes. Cassette 4 contains the detached pieces of indurated tissue. / JOHN:latha 05/06/18 TC:5 CPT: 83917 HEADER OPERATION: Right breast reconstruction, removal tissue supervisor refining PRE-OP DIAGNOSIS: Recurrent infectious bilateral breasts, bilateral [...] fibrosis, granulation tissue reaction and reactive changes. JOHN:latha 05/07/18 Signed Andres Thomas 05/07/18 <signature on file> Performed By: #### PBREAST #### [facility] [address] [place], [address] T3 TOTAL - TRIIODOTHYRONINE Collected: 04/27/2018 Status: F Source: [place] 2:55 PM [facility] REPOSITORY TYPE CODE TESTS RESULT OUT OF RANGE REFERENCE UNITS LAB L501.9186 0.6-1.81 ng/mL Normal T3 Total 0.75 Performed By: #### L501.9186 #### [facility] [address] [place], [address] THYROID STIM HORMONE Collected: 04/27/2018 Status: F Source: [place] (TSH) 2:55 PM [facility] REPOSITORY TYPE CODE TESTS RESULT OUT OF RANGE REFERENCE UNITS LAB L501.9520 0.358-3.74 uIU/mL High TSH 6.49 Performed By: #### L501.9520, L506.0400 #### [facility] [address] [place], [address] T4 FREE DIRECT Collected: 04/27/2018 Status: F Source: [place] 2:55 PM [facility] REPOSITORY TYPE CODE TESTS RESULT OUT OF RANGE REFERENCE UNITS LAB L506.0400 0.76-1.46 ng/dL Normal T4 FREE 0.95 DIRECT Performed By: #### L501.9520, L506.0400 #### [facility] [address] [facility] [place], [address] PLASTIC SURGERY Observed: 04/24/2018 Status: F Source: [place] VISIT REPORT 5:48 PM [facility] REPOSITORY [facility] [address] [facility] [address] [place] [address] OFFICE VISIT Date of Service: 03/12/18 MR#: [id number] Acct: [id number] Name: JASMINDARWIN HOFFSandra Hyde Rep #: [id number] : 1970 Provider: Sean Stevenson MD Age/Sex: 48/F Location: [facility] Status: Signed Intake Vital Signs03/12/18 Height 5 ft 7 in 03/12/18 Weight: 280 lb 2 oz Intake Visit Reasons: postop surgery 12/16/17 Cytotechnologist Required: No Accompanied by: Daughter Is patient [...] reconstruction with placement of submuscular saline tissue supervisor refining (800 ml) and placement DermACELL decellularized dermis [...] 750 ml saline in an 800 ml supervisor refining. May stop expanding and prepare for the next stage in her breast reconstruction process which is removal of the supervisor refining with replacement cohesive gel implant. Will also [...] were included in a form from the [employer] [employer]. Followup after her [...] MRSA infection Z86.14 Former smoker Z87.891 04/24/18 1748 <Electronically signed by Sean Stevenson MD> Date Sean Stevenson MD Cosignbritt Signature: Date (if applicable) CC: THYROID STIM HORMONE Collected: 04/10/2018 Status: F Source: [place] (TSH) 4:51 PM [facility] REPOSITORY TYPE CODE TESTS RESULT OUT OF RANGE REFERENCE UNITS LAB L501.9520 0.358-3.74 uIU/mL High TSH 16.50 Performed By: #### L501.9520 #### [facility] [address] [place], [place], [address] PROTHROMBIN TIME W/INR Collected: 04/09/2018 Status: F Source: [place] 12:28 PM [facility] REPOSITORY TYPE CODE TESTS RESULT OUT OF RANGE REFERENCE UNITS LAB L300.4150 11.7-14.9 SECONDS Normal PROTIME 12.5 LAB L300.4200 Normal INR 0.9 Performed By: #### L300.3900, L300.4310 #### [facility] [address] [place], [place], [address] PARTIAL THROMBOPLAST Collected: 04/09/2018 Status: F Source: [place] TIME 12:28 PM [facility] REPOSITORY TYPE CODE TESTS RESULT OUT OF RANGE REFERENCE UNITS LAB L300.4310 24.1-36.2 Seconds Normal PTT 31.8 Performed By: #### L300.3900, L300.4310 #### [facility] [address] [place], [address] CBC W/DIFF, AUTOMATED Collected: 04/09/2018 Status: F Source: [place] 12:28 PM [facility] REPOSITORY TYPE CODE TESTS RESULT OUT OF [...] Lymph 2.12 Performed By: #### L100.0100 #### [facility] [address] [place] [address]. [place], [place], [id number] LIVER PROFILE Collected: 04/09/2018 Status: F Source: [place] 12:28 PM [facility] REPOSITORY TYPE CODE TESTS RESULT OUT OF [...] 0.06 Performed By: #### L500.3400, L501.9520 #### [facility] [address] [place], [address] THYROID STIM HORMONE Collected: 04/09/2018 Status: F Source: [place] (TSH) 12:28 PM [facility] REPOSITORY TYPE CODE TESTS RESULT OUT OF RANGE REFERENCE UNITS LAB L501.9520 0.358-3.74 uIU/mL High TSH 14.80 Performed By: #### L500.3400, L501.9520 #### [facility] [address] [place], [address] Observed: 03/12/2018 Status: F Source: [place] CULTURE, SURGERY DEEP 4:18 PM [facility] WOUND REPOSITORY List Antibiotics Last 48 Hours? UNK List Antibiotics to be Started? UNK Gram Stain Gram Stain Rare White Blood Cells No organisms seen Wound Culture There are no CLSI standards for interpretation of this Drug/Organism combination. Clinical correlation necessary, Possible skin contamination. ORGANISM 1: Kocuria kristinae Amount Growth Rare Cult, Anaerobic No growth in 5 days. Performed By: #### M100.1550 #### [facility] [address] [place], [place], [address] PLASTIC SURGERY Observed: 02/27/2018 Status: F Source: [place] VISIT REPORT 5:09 PM [facility] REPOSITORY [facility] [address] [facility] [address] [place] [address] OFFICE VISIT Date of Service: 02/11/18 MR#: [id number] Acct: [id number] Name: ROBLES CARRASQUILLO Mary Ellen Rep #: [id number] : 1970 Provider: Sean Stevenson MD Age/Sex: 48/F Location: [facility] Status: Signed Intake Vital Signs02/11/18 Height 5 ft 7 in 02/11/18 Weight: 284 lb 02/11/18 Body Mass Index (BMI) 44.4 02/11/18 Respiratory Rate 16 Intake Visit Reasons: postop surgery 12/16/17 Cytotechnologist Required: No Accompanied by: None Is patient [...] reconstruction with placement of submuscular saline tissue supervisor refining (800 ml) and placement DermACELL decellularized dermis [...] mg PO 4X/DAY PRN painN61.1, N65.1, Z86.14, [id number] Daemon Discontinued Reason: 0.11 By Stop Date Coding Level of Care Code Global Post Op Diagnoses Abscess of right breast N61.1 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 Disproportion of reconstructed breast N65.1 History of MRSA infection Z86.14 Former smoker Z87.891 02/27/18 1709 <Electronically signed by Sean Stevenson MD> Date Sean Stevenson MD Cosign Signature: Date (if applicable) CC: PLASTIC SURGERY Observed: 02/25/2018 Status: F Source: [place] VISIT REPORT 2:45 PM [facility] REPOSITORY [facility] [address] [address] OFFICE VISIT Date of Service: 02/25/18 MR#: [id number] Acct: [id number] Name: ROBLES CARRASQUILLO Rep #: [id number] : 1970 Provider: Sean Stevensno MD Age/Sex: 48/F Location: [facility] [place] Status: Signed Intake Vital Signs02/25/18 Height 5 ft 7 in 02/25/18 Weight: 278 lb 8 oz Intake Visit Reasons: postop surgery 12/16/17 Cytotechnologist Required: No Accompanied by: None Is patient [...] reconstruction with placement of submuscular saline tissue supervisor refining (800 ml) and placement DermACELL decellularized dermis [...] sterile saline into the right breast tissue supervisor refining without difficulty. I injected 250 ml for a total of 750 ml saline in an 800 ml supervisor refining. She tolerated the procedure well. Will apply [...] PLASTIC SURGERY Observed: 02/23/2018 Status: F Source: [place] VISIT REPORT 2:01 AM [facility] REPOSITORY [facility] [address] [facility] [address] [place] [address] OFFICE VISIT Date of Service: 02/04/18 MR#: [id number] Acct: [id number] Name: ROBLES CARRASQUILLO Rep #: [id number] : 1970 Provider: Sean Stevenson MD Age/Sex: 48/F Location: [facility] Status: Signed Intake Vital Signs02/04/18 Height 5 ft 7 in 02/04/18 Weight: 284 lb 8 oz 02/04/18 Body Mass Index (BMI) 44.5 02/04/18 Respiratory Rate 16 Intake Visit Reasons: postop surgery 12/16/17 Cytotechnologist Required: No Accompanied by: None Is patient [...] reconstruction with placement of submuscular saline tissue supervisor refining (800 ml) and placement DermACELL decellularized dermis [...] sterile saline into the right breast tissue supervisor refining without difficulty. I injected 250 ml for a total of 500 ml saline in an 800 ml supervisor refining. She tolerated the procedure well. Will apply [...] PLASTIC SURGERY Observed: 02/22/2018 Status: F Source: [place] VISIT REPORT 1:58 AM [facility] REPOSITORY [facility] [address] [address] OFFICE VISIT Date of Service: 01/16/18 MR#: [id number] Acct: [id number] Name: ROBLES CARRASQUILLO Mary Ellen Rep #: [id number] : 1970 Provider: Sean Stevenson MD Age/Sex: 48/F Location: [facility] [place] Status: Signed Intake Vital Signs01/16/18 Height 5 ft 7 in 01/16/18 Weight: 184 lb 4 oz Intake Visit Reasons: postop surgery 12/16/17 Cytotechnologist Required: No Accompanied by: None Is patient [...] reconstruction with placement of submuscular saline tissue supervisor refining (800 ml) and placement DermACELL decellularized dermis [...] sterile saline into the right breast tissue supervisor refining without difficulty. I injected 250 ml in an 800 ml supervisor refining. She tolerated the procedure well. Will apply [...] mg PO 4X/DAY PRN paiN61.1, N65.1, Z86.14, [id number] Daemon Discontinued Reason:n 0.11 By Stop Date [...] PLASTIC SURGERY Observed: 01/26/2018 Status: F Source: [place] VISIT REPORT 11:26 AM [facility] REPOSITORY [facility] [address] [address] OFFICE VISIT Date of Service: 01/06/18 MR#: [id number] Acct: [id number] Name: JASMINDARWIN HOFFSandra Hyde Rep #: [id number] : 1970 Provider: Sean Stevenson MD Age/Sex: 47/F Location: [facility] [place] Status: Signed Intake Vital Signs01/06/18 Height 5 ft 6 in 01/06/18 Weight: 287 lb Intake Visit Reasons: postop surgery 12/16/17 Cytotechnologist Required: No Accompanied by: Daughter Is patient [...] reconstruction with placement of submuscular saline tissue supervisor refining (800 ml) and placement DermACELL decellularized dermis [...] Gastric bypass due to severe obesity 04/10/10 [place] 158lbs loss. Incisional hernia repair 07/03/10 panniculectomy [...] reconstruction with placement of submuscular saline tissue supervisor refining (800 ml) and placement DermACELL decellularized dermis [...] SED RATE Collected: 01/26/2018 Status: F Source: [place] 8:30 AM [facility] REPOSITORY TYPE CODE TESTS RESULT OUT OF RANGE REFERENCE UNITS LAB L102.0000 0-20 mm/hr High SED RATE 27 Performed By: #### L101.9900, L100.0100, L500.4050, L501.6710 #### [facility] [address] [place], [address] CBC W/DIFF, AUTOMATED Collected: 01/26/2018 Status: F Source: [place] 8:30 AM [facility] REPOSITORY TYPE CODE TESTS RESULT OUT OF [...] By: #### L101.9900, L100.0100, L500.4050, L501.6710 #### [facility] [address] [facility] [place], [address] COMPREHENSIVE METABOLIC Collected: 01/26/2018 Status: F Source: [facility] 8:30 AM [facility] REPOSITORY TYPE CODE TESTS RESULT OUT OF [...] By: #### L101.9900, L100.0100, L500.4050, L501.6710 #### [facility] [address] [place], [place], [address] CRP Collected: 01/26/2018 Status: F Source: [place] 8:30 AM [facility] REPOSITORY TYPE CODE TESTS RESULT OUT OF RANGE REFERENCE UNITS LAB L501.6710 0.0-3.0 mg/L High 6.10 C-REACTIVE PROT Result Comment: C-Reactive Protein (CRP) provides useful information for the diagnosis, therapy and monitoring of inflammatory processes and associated diseases. For the evaluation of Relative Risk for Cardiovascular Disease, a High Sensitivity CRP (HSCRP) should be ordered. Performed By: #### L101.9900, L100.0100, L500.4050, L501.6710 #### [facility] [address] [place], [address] VANCOMYCIN, TROUGH Collected: 01/26/2018 Status: F Source: [place] LEVEL 8:30 AM [facility] REPOSITORY TYPE CODE TESTS RESULT OUT OF RANGE REFERENCE UNITS LAB L501.8820 5.0-15.0 ug/mL Normal VANCO, TROUGH 12.0 Result Comment: VANCOMYCIN STANDARED DRUG THERAPY TROUGH LEVEL: 5.0 - 15.0 mg/L VANCOMYCIN HIGH INTENSITY THERAPY TROUGH LEVEL: 15.0 - 20.0 mg/L High Intensity therapy recommended for serious life threatening infections include: - Meningitis -Endocarditis -Pneumonia (Ventilator/Healtcare Associated) -Sepsis PLEASE CONTACT PHARMACY SERVICES (#[phone]) FOR INTERPRETATION OF RESULTS. Performed By: #### L501.8820 #### [facility] [address] [place], [address] ERYTHROCYTE SED RATE Collected: 01/19/2018 Status: F Source: [place] 8:36 AM [facility] REPOSITORY TYPE CODE TESTS RESULT OUT OF RANGE REFERENCE UNITS LAB L102.0000 0-20 mm/hr High SED RATE 52 Performed By: #### L101.9900, L100.0100 #### [facility] [address] [facility] [place], [address] CBC W/DIFF, AUTOMATED Collected: 01/19/2018 Status: F Source: [place] 8:36 AM [facility] REPOSITORY TYPE CODE TESTS RESULT OUT OF [...] 1.58 Performed By: #### L101.9900, L100.0100 #### [facility] [address] [place], [place], [address] VANCOMYCIN, TROUGH Collected: 01/19/2018 Status: F Source: [facility] 8:36 AM [facility] REPOSITORY TYPE CODE TESTS RESULT OUT OF RANGE REFERENCE UNITS LAB L501.8820 5.0-15.0 ug/mL Normal VANCO, TROUGH 13.3 Result Comment: VANCOMYCIN STANDARED DRUG THERAPY TROUGH LEVEL: 5.0 - 15.0 mg/L VANCOMYCIN HIGH INTENSITY THERAPY TROUGH LEVEL: 15.0 - 20.0 mg/L High Intensity therapy recommended for serious life threatening infections include: - Meningitis -Endocarditis -Pneumonia (Ventilator/Healtcare Associated) -Sepsis PLEASE CONTACT PHARMACY SERVICES (#[phone]) FOR INTERPRETATION OF RESULTS. Performed By: #### L501.8820 #### [facility] [address] [place], [place], [address] COMPREHENSIVE METABOLIC Collected: 01/19/2018 Status: F Source: [place] PROFIL 8:36 AM [facility] REPOSITORY TYPE CODE TESTS RESULT OUT OF [...] GAP Performed By: #### L500.4050, L501.6710 #### [facility] [place], [address] CRP Collected: 01/19/2018 Status: F Source: [place] 8:36 AM [facility] REPOSITORY TYPE CODE TESTS RESULT OUT OF RANGE REFERENCE UNITS LAB L501.6710 0.0-3.0 mg/L High 6.55 C-REACTIVE PROT Result Comment: C-Reactive Protein (CRP) provides useful information for the diagnosis, therapy and monitoring of inflammatory processes and associated diseases. For the evaluation of Relative Risk for Cardiovascular Disease, a High Sensitivity CRP (HSCRP) should be ordered. Performed By: #### L500.4050, L501.6710 #### [facility] [address] [place], [address] CBC W/DIFF, AUTOMATED Collected: 01/12/2018 Status: F Source: [place] 8:45 AM [facility] REPOSITORY TYPE CODE TESTS RESULT OUT OF [...] 1.34 Performed By: #### L100.0100, L101.9900 #### [facility] [address] [place], [address] ERYTHROCYTE SED RATE Collected: 01/12/2018 Status: F Source: [place] 8:45 AM [facility] REPOSITORY TYPE CODE TESTS RESULT OUT OF RANGE REFERENCE UNITS LAB L102.0000 0-20 mm/hr High SED RATE 45 Performed By: #### L100.0100, L101.9900 #### [facility] [address] [place], [address] VANCOMYCIN, TROUGH Collected: 01/12/2018 Status: F Source: [place] LEVEL 8:45 AM [facility] REPOSITORY TYPE CODE TESTS RESULT OUT OF REFERENCE UNITS RANGE LAB L501.8820 5.0-15.0 ug/mL High VANCO, TROUGH 15.3 Result Comment: VANCOMYCIN STANDARED DRUG THERAPY TROUGH LEVEL: 5.0 - 15.0 mg/L VANCOMYCIN HIGH INTENSITY THERAPY TROUGH LEVEL: 15.0 - 20.0 mg/L High Intensity therapy recommended for serious life threatening infections include: - Meningitis -Endocarditis -Pneumonia (Ventilator/Healtcare Associated) -Sepsis PLEASE CONTACT PHARMACY SERVICES (#[phone]) FOR INTERPRETATION OF RESULTS. Performed By: #### L501.8820 #### [facility] [address] [place], [address] CRP, HIGH SENSITIVITY Collected: 01/12/2018 Status: F Source: [place] CARDIAC 8:45 AM [facility] REPOSITORY TYPE CODE TESTS RESULT OUT OF RANGE REFERENCE UNITS LAB L501.6750 mg/L High CRP HIGH 6.89 SENS Result Comment: Low Relative Risk of CVD <1.0 mg/L Average Relative Risk of CVD 1.0 - 3.0 mg/L High Relative Risk of CVD >3.0 mg/L Performed By: #### L501.6750 #### [facility] [address] [place], [address] DISCHARGE INSTRUCTION Observed: 01/10/2018 Status: F Source: [place] 11:34 AM [facility] REPOSITORY [facility] Medical Records Department [address] [place] [address] Discharge Instruction 01/10/18 1133 MR#: [id number] Acct: [id number] Name: JASMINLUIS EDUARDOROBLES Rep #: [id number] : 1970 47 From: Brian Baxter MD PCP: Eduardo Rubio DO Status: REG ER ED Disposition - Plan for ED Patient: Chief Complaint: Wound Check Instructions: ED PICC Line Care Referrals: Eduardo Peters DO [Primary Care Provider] - What to do if you have Problems For any increased pain, shortness of breath, bleeding, nausea or vomiting, chest pain, or any unexpected problems, contact your Primary Care Provider. Call [facility] ([phone]) or report to the closest Emergency Room. Call 911 if necessary. 01/10/18 1134 <Electronically signed by Brian Baxter MD> Date Brian Baxter MD Cosigner Signature (If Indicated): Date CC: Eduardo Rubio DO EMERGENCY DEPARTMENT Observed: 01/10/2018 Status: F Source: [place] SUMMARY 11:33 AM [facility] REPOSITORY [facility] Medical Records Department [address] [place] [address] Emergency Department Summary 01/10/18 1131 MR#: [id number] Acct: [id number] Name: JASMINLUIS EDUARDOROBLES Rep #: [id number] : 1970 47 From: Brian Baxter MD [...] obstruction, resolved This note was generated with Preen[employer] dictation software. It may contain incorrect words, spelling, and punctuation that were not noted in review of the chart prior to signing ED Disposition - Plan for ED Patient: Chief Complaint: Wound Check Referrals: Eduardo Peters DO [Primary Care Provider] - What to do if you have Problems For any increased pain, shortness of breath, bleeding, nausea or vomiting, chest pain, or any unexpected problems, contact your Primary Care Provider. Call [facility] ([phone]) or report to the closest Emergency Room. Call 911 if necessary. 01/10/18 1133 <Electronically signed by Brian Baxter MD> Date Brian Baxter MD Cosigner Signature (If Indicated): Date CC: Eduardo Rubio DO PLASTIC SURGERY Observed: 01/06/2018 Status: F Source: [place] VISIT REPORT 11:34 AM [facility] REPOSITORY [facility] [address] [address] OFFICE VISIT Date of Service: 01/02/18 MR#: [id number] Acct: [id number] Name: ROBLES CARRASQUILLO Rep #: [id number] : 1970 Provider: Sean Stevenson MD Age/Sex: 47/F Location: [facility] [place] Status: Signed Intake Vital Signs01/02/18 Height 5 ft 6 in 01/02/18 Weight: 280 lb 6 oz Intake Visit Reasons: postop surgery 12/16/17 Cytotechnologist Required: No Accompanied by: Daughter Is patient [...] reconstruction with placement of submuscular saline tissue supervisor refining (800 ml) and placement DermACELL decellularized dermis [...] Gastric bypass due to severe obesity 04/10/10 [place] 158lbs loss. Incisional hernia repair 07/03/10 panniculectomy [...] reconstruction with placement of submuscular saline tissue supervisor refining (800 ml) and placement DermACELL decellularized dermis [...] PLASTIC SURGERY Observed: 01/06/2018 Status: F Source: [place] VISIT REPORT 11:24 AM [facility] REPOSITORY [facility] [address] [place] [address] OFFICE VISIT Date of Service: 12/25/17 MR#: [id number] Acct: [id number] Name: DARWIN CARRASQUILLOSandra Hyde Rep #: [id number] : 1970 Provider: Sean Stevenson MD Age/Sex: 47/F Location: [facility] Status: Signed Intake Vital Signs12/25/17 Height 5 ft 6 in 12/25/17 Weight: 284 lb 2 oz Intake Visit Reasons: postop surgery 12/16/17 Cytotechnologist Required: No Accompanied by: None Is patient [...] reconstruction with placement of submuscular saline tissue supervisor refining (800 ml) and placement DermACELL decellularized dermis [...] Gastric bypass due to severe obesity 04/10/10 [place] 158lbs loss. Incisional hernia repair 07/03/10 panniculectomy [...] reconstruction with placement of submuscular saline tissue supervisor refining (800 ml) and placement DermACELL decellularized dermis [...] MD Cosigner Signature: Date (if applicable) CC: OPERATIVE REPORT Observed: 01/06/2018 Status: F Source: [place] 12:11 AM [facility] REPOSITORY [facility] Medical Records Department [address] [place] [address] Operative Report 12/16/171953 MR#: [id number] Acct: [id number] Name: ROBLES CARRASQUILLO Rep #: [id number] : 1970 47 From: Sean Stevenson MD PCP: Eduardo Rubio DO Status: DIS ALLEN Y Location: [place] [address] Report of Operation Date of Procedure: 12/16/17 Pre-Operative Diagnosis: 1. Recurrent infections bilateral breasts. 2. s/p completion mastectomy right breast. 3. Acquired absence right breast. 4. Disproportion reconstructed breasts. 5. Former smoker. 6. MRSA. Post-Operative Diagnosis: Same. Surgery/Procedure Performed:: 1st stage delayed right breast reconstruction with placement of submuscular saline tissue supervisor refining (800 ml) and placement DermACELL decellularized dermis [...] were included in a form from the [employer]. IV Fluids - 900 ml. Urine Output - 250 ml. I used [place] CPX4 with Suture Tabs, Medium Height, Breast Tissue Medical Records Field Technician, Textured, Integral Injection Dome (800 ml). Reference Number - [id number]. Lot Number - [id number]. Serial Number - [id number]. Expiration - December 22, 2020. I used DermACELL Decellularized Dermis Graft, (8 x 20 cm, 160 cm2). ID Number - [id number]. Code Number - [id number]. Expiration - June 14, 2021. I used Kiya absorbable hemostat. Reference Number - [id number]. Lot Number - [id number]. Expiration - July 26, 2022. upper trimmer: Bubba Ramos. Type of Anesthesia:: General Specimen's [...] submuscular pocket and felt an 800 ml [place] saline tissue supervisor refining would fit the pocket adequately. The air was removed from the supervisor refining and then filled with 30 ml saline. I tested the supervisor refining for leaks for which there was none, [...] was placed in the mastectomy position. The supervisor refining was then placed in the submuscular position and secured to the chest wall through the suture tabs with 3-0 Vicryl interrupted sutures. I then placed DermACELL decellularized dermis graft into the wound and secured to the inferior aspect of the pectoralis muscle over the inferior aspect of the supervisor refining to the chest wall and secured with 3-0 Vicryl interrupted sutures. Care was taken to place a malleable to protect the supervisor refining during the placement of the sutures. The [...] drains removed in 10-14 days. Grafts/Implants Used: [place] saline tissue supervisor refining and DermACELL decellularized dermis graft. - Complications None. - Admit VTE Documentation VTE Present on Admission: No VTE Mechan Device Prophylaxis: SCD's VTE Pharm Prophylaxis ordered?: Yes Code Visit Surgery Charges CPT - 72802 ICD-10 - N61.1, Z90.11, N65.1, Z86.14, Z87.891 90693 N61.1, Z90.11, N65.1, Z86.14, Z87.891 01/06/18 0011 <Electronically signed by Sean Stevenson MD> Date Sean Stevenson MD CC: Jonn Pedroza MD; Sean Stevenson MD; Eduardo Rubio DO Signed CBC W/DIFF, AUTOMATED Collected: 01/05/2018 Status: F Source: [place] 8:36 AM [facility] REPOSITORY TYPE CODE TESTS RESULT OUT OF [...] 1.26 Performed By: #### L100.0100, L101.9900 #### [facility] [address] [place], [place], [address] ERYTHROCYTE SED RATE Collected: 01/05/2018 Status: F Source: [place] 8:36 AM [facility] REPOSITORY TYPE CODE TESTS RESULT OUT OF RANGE REFERENCE UNITS LAB L102.0000 0-20 mm/hr High SED RATE 42 Performed By: #### L100.0100, L101.9900 #### [facility] [address] [facility] [id number] VANCOMYCIN, TROUGH Collected: 01/05/2018 Status: F Source: [place] LEVEL 8:36 AM [facility] REPOSITORY TYPE CODE TESTS RESULT OUT OF RANGE REFERENCE UNITS LAB L501.8820 5.0-15.0 ug/mL Normal VANCO, TROUGH 11.8 Result Comment: VANCOMYCIN STANDARED DRUG THERAPY TROUGH LEVEL: 5.0 - 15.0 mg/L VANCOMYCIN HIGH INTENSITY THERAPY TROUGH LEVEL: 15.0 - 20.0 mg/L High Intensity therapy recommended for serious life threatening infections include: - Meningitis -Endocarditis -Pneumonia (Ventilator/Healtcare Associated) -Sepsis PLEASE CONTACT PHARMACY SERVICES (#[id number]) FOR INTERPRETATION OF RESULTS. Performed By: #### L501.8820 #### [facility] [address] [place], [place], [address] COMPREHENSIVE METABOLIC Collected: 01/05/2018 Status: F Source: [place] PROFIL 8:36 AM [facility] REPOSITORY TYPE CODE TESTS RESULT OUT OF [...] GAP Performed By: #### L500.4050, L501.6710 #### [facility] [address] [place], [address] CRP Collected: 01/05/2018 Status: F Source: [place] 8:36 AM [facility] REPOSITORY TYPE CODE TESTS RESULT OUT OF RANGE REFERENCE UNITS LAB L501.6710 0.0-3.0 mg/L High 6.47 C-REACTIVE PROT Result Comment: C-Reactive Protein (CRP) provides useful information for the diagnosis, therapy and monitoring of inflammatory processes and associated diseases. For the evaluation of Relative Risk for Cardiovascular Disease, a High Sensitivity CRP (HSCRP) should be ordered. Performed By: #### L500.4050, L501.6710 #### [facility] [address] [place], [address] CBC W/DIFF, AUTOMATED Collected: 12/29/2017 Status: F Source: [place] 8:34 AM [facility] REPOSITORY TYPE CODE TESTS RESULT OUT OF [...] 1.83 Performed By: #### L100.0100, L101.9900 #### [facility] [address] [place], [place], [address] ERYTHROCYTE SED RATE Collected: 12/29/2017 Status: F Source: [place] 8:34 AM [facility] REPOSITORY TYPE CODE TESTS RESULT OUT OF RANGE REFERENCE UNITS LAB L102.0000 0-20 mm/hr High SED RATE 49 Performed By: #### L100.0100, L101.9900 #### [facility] [address] [place], [place], [address] VANCOMYCIN, TROUGH Collected: 12/29/2017 Status: F Source: [facility] 8:34 AM [facility] REPOSITORY TYPE CODE TESTS RESULT OUT OF RANGE REFERENCE UNITS LAB L501.8820 5.0-15.0 ug/mL Normal VANCO, TROUGH 13.5 Result Comment: VANCOMYCIN STANDARED DRUG THERAPY TROUGH LEVEL: 5.0 - 15.0 mg/L VANCOMYCIN HIGH INTENSITY THERAPY TROUGH LEVEL: 15.0 - 20.0 mg/L High Intensity therapy recommended for serious life threatening infections include: - Meningitis -Endocarditis -Pneumonia (Ventilator/Healtcare Associated) -Sepsis PLEASE CONTACT PHARMACY SERVICES (#[id number]) FOR INTERPRETATION OF RESULTS. Performed By: #### L501.8820 #### [facility] [address] [place], [place], [id number] COMPREHENSIVE METABOLIC Collected: 12/29/2017 Status: F Source: [place] PROFIL 8:34 AM [facility] REPOSITORY TYPE CODE TESTS RESULT OUT OF [...] 9 Performed By: #### L500.4050, L501.6710 #### [facility] [address] [facility] [place], [address] CRP Collected: 12/29/2017 Status: F Source: [place] 8:34 AM [facility] REPOSITORY TYPE CODE TESTS RESULT OUT OF RANGE REFERENCE UNITS LAB L501.6710 0.0-3.0 mg/L High 6.93 C-REACTIVE PROT Result Comment: C-Reactive Protein (CRP) provides useful information for the diagnosis, therapy and monitoring of inflammatory processes and associated diseases. For the evaluation of Relative Risk for Cardiovascular Disease, a High Sensitivity CRP (HSCRP) should be ordered. Performed By: #### L500.4050, L501.6710 #### [facility] [address] [place], [place], [address] CBC-COMPLETE BLOOD CNT Collected: 12/22/2017 Status: F Source: [place] NO DIFF 9:24 AM [facility] REPOSITORY TYPE CODE TESTS RESULT OUT OF [...] 9.7 Performed By: #### L100.0500, L101.9900 #### [facility] [address] [facility] [place], [place], [address] ERYTHROCYTE SED RATE Collected: 12/22/2017 Status: F Source: [place] 9:24 AM [facility] REPOSITORY TYPE CODE TESTS RESULT OUT OF RANGE REFERENCE UNITS LAB L102.0000 0-20 mm/hr High SED RATE 67 Performed By: #### L100.0500, L101.9900 #### [facility] [address] [place], [place], [address] VANCOMYCIN, TROUGH Collected: 12/22/2017 Status: F Source: [place] LEVEL 9:24 AM [facility] REPOSITORY TYPE CODE TESTS RESULT OUT OF RANGE REFERENCE UNITS LAB L501.8820 5.0-15.0 ug/mL Normal VANCO, TROUGH 11.1 Result Comment: VANCOMYCIN STANDARED DRUG THERAPY TROUGH LEVEL: 5.0 - 15.0 mg/L VANCOMYCIN HIGH INTENSITY THERAPY TROUGH LEVEL: 15.0 - 20.0 mg/L High Intensity therapy recommended for serious life threatening infections include: - Meningitis -Endocarditis -Pneumonia (Ventilator/Healtcare Associated) -Sepsis PLEASE CONTACT PHARMACY SERVICES (#7538) FOR INTERPRETATION OF RESULTS. Performed By: #### L501.8820 #### [facility] [address] [place], [address] COMPREHENSIVE METABOLIC Collected: 12/22/2017 Status: F Source: [place] SOL 9:24 AM [facility] REPOSITORY TYPE CODE TESTS RESULT OUT OF [...] 8 Performed By: #### L500.4050, L501.6710 #### [facility] [address] [place], [address] CRP Collected: 12/22/2017 Status: F Source: [place] 9:24 AM [facility] REPOSITORY TYPE CODE TESTS RESULT OUT OF RANGE REFERENCE UNITS LAB L501.6710 0.0-3.0 mg/L High 14.00 C-REACTIVE PROT Result Comment: C-Reactive Protein (CRP) provides useful information for the diagnosis, therapy and monitoring of inflammatory processes and associated diseases. For the evaluation of Relative Risk for Cardiovascular Disease, a High Sensitivity CRP (HSCRP) should be ordered. Performed By: #### L500.4050, L501.6710 #### [facility] [address] [place], [address] DISCHARGE INSTRUCTION Observed: 12/18/2017 Status: F Source: [place] 8:42 PM [facility] REPOSITORY [facility] Medical Records Department [address] [place] [address] Instructions for Home/Discharge Instructions 12/18/172028 MR#: [id number] Acct: [id number] Name: ROBLES CARRASQUILLO Rep #: [id number] : 1970 47 From: Sean Stevenson MD [...] Patient to go to the lab at [facility] for 6 weeks to get CBC, CMP, ESR, CRP, and Vancomycin Trough. Pharmacy to dose. Please fax results also to [phone]. Allergies/Adverse Reactions: Allergies codeine Allergy (Verified 12/03/17 [...] BID #60 cap Primary Care Physician: Eduardo Peters DO [Primary Care Provider] - Please Follow Up With: Sean Stevenson MD When: 1-2 weeks Proposed Discharge Date: 12/18/17 12/18/172041 <Electronically signed by Sean Stevenson MD> Date Sean Stevenson MD CC: Jonn Pedroza MD; Eduardo Rubio DO VANCOMYCIN, TROUGH Collected: 12/18/2017 Status: F Source: [place] LEVEL 7:35 AM [facility] REPOSITORY Order Comment: Time Medication is to [...] (Ventilator/Healtcare Associated) -Sepsis PLEASE CONTACT PHARMACY SERVICES (#[id number]) FOR INTERPRETATION OF RESULTS. Performed By: #### L501.8820 #### [facility] [address] [place], [address] HISTORY AND PHYSICAL Observed: 12/18/2017 Status: F Source: [place] EXAM 1:29 AM [facility] REPOSITORY [facility] Medical Records Department [address] [place] [address] History and Physical 12/15/17 2200 MR#: [id number] Acct: [id number] Name: ROBLES CARRASQUILLO Rep #: [id number] : 1970 47 From: Sean Stevenson MD PCP: Eduardo Rubio, DO Status: REG SD Y Location: [place] [address] History and Physical Date of Admission: 12/16/17 [...] Gastric bypass due to severe obesity 04/10/10 [place] 158lbs loss. Incisional hernia repair 07/03/10 panniculectomy [...] She is interested in a saline tissue supervisor refining followed by replacement cohesive gel implant. Autogenous [...] proceeding with placement of a saline tissue supervisor refining at this time. She understands that with [...] I will proceed with the saline tissue supervisor refining next month because of her recent MRSA [...] were included in a form from the [employer]. Will check a Prealbumin preoperatively. If it is quite low, I would consider postponing the surgery for an additional 1-2 months until her nutrition is maximized. Followup after her surgery. 12/18/17 0129 <Electronically signed by Sean Stevenson MD> Date [facility] Signature: Date (if applicable) CC: Jonn Pedroza MD; Sean Stevenson MD; Eduardo Rubio DO; [facility] Signed CBC-COMPLETE BLOOD CNT Collected: 12/17/2017 Status: F Source: [place] NO DIFF 5:33 AM [facility] REPOSITORY TYPE CODE TESTS RESULT OUT OF [...] MPV 10.1 Performed By: #### L100.0500 #### [facility] [address] [place], [place], [address] BASIC METABOLIC Collected: 12/17/2017 Status: F Source: [place] PROFILE (BMP) 5:33 AM [facility] REPOSITORY TYPE CODE TESTS RESULT OUT OF [...] Normal 6 Performed By: #### L500.2500 #### [facility] [address] [facility] [place], [place], [address] MRSA WOUND DNA BY Collected: 12/16/2017 Status: F Source: [place] PCR 12:00 AM [facility] REPOSITORY Order Comment: Has pt arrived? Y Comments: RIGHT BREAST TISSUE Specimen Source? RIGHT BREAST TISSUE TYPE CODE TESTS RESULT OUT OF RANGE REFERENCE UNITS LAB L8200.1100 Negative Normal MRSA Negative RESULT LAB L8200.1150 Negative Normal SA RESULT NEGATIVE Performed By: #### L8200.1075 #### [facility] [address] [place], [place], [address] Observed: 12/16/2017 Status: F Source: [place] CULTURE, DEEP WOUND 12:00 AM [facility] REPOSITORY Order Date: 04/30/17 Has pt arrived? Y Comments: RIGHT BREAST TISSUE Gram Stain Gram Stain Rare Red Blood Cells No organisms seen Wound Culture No growth aerobically. Cult, Anaerobic No growth in 5 days. Performed By: #### M100.1500 #### [facility] [address] [place], [address] BREAST BIOPSY Observed: 12/16/2017 Status: F Source: [place] (CHOOSE SITE) 12:00 AM [facility] REPOSITORY Patient: ROBLES CARRASQUILLO : 1970 (47/F) Acct Num: [id number] Phys: Sean Stevenson MD Unit Num: [id number] Loc: MS2 [id number] Specimen: [id number] Received: 12/16/17 - 1457 Spec Type: BREAST BX TISSUES TISSUES: Right [...] sections do not reveal any mass lesion. Pit Hoist Operator sections are submitted in four cassettes. / SJ:latha 12/16/17 TC: 3 CPT: 95563 HEADER OPERATION: Right breast reconstruction, delayed first stage, placement PRE-OP DIAGNOSIS: Acquired absence right breast, S/P completion mastectomy right breast TISSUE SUBMITTED: Right breast tissue MICROSCOPIC DESCRIPTION Slides are reviewed. MICROSCOPIC DIAGNOSIS Right breast tissue, excision: Dermal fibrosis with mild chronic inflammation consistent with scar. Focal intradermal inclusion cyst. No evidence of malignancy. AM:latha 12/17/17 Signed Sudheer [facility] 12/17/17 <signature on file> Performed By: #### PBRBX #### [facility] [address] [place], [address] Observed: 12/16/2017 Status: F Source: [place] CULTURE, FUNGUS W/ 12:00 AM [facility] [id number] REPOSITORY Comments: RIGHT BREAST TISSUE Has pt arrived? Y Is this test to exclude patient from TB Isolation? N Cu,[id number] [facility] ORIGINAL REPORT ON FILE IN LAB CONTAINS ADDITIONAL TEST SITE INFORMATION. CUF No yeast or mold isolated after [address] TESTING PERFORMED AT [facility]. ORIGINAL REPORT ON FILE IN LAB CONTAINS ADDITIONAL TEST SITE INFORMATION. Fungus Stain No yeast or mold observed. Performed By: #### M600.1900 #### [facility] [address] [place], [place], [address] CBC-COMPLETE BLOOD CNT Collected: 12/15/2017 Status: F Source: [place] NO DIFF 12:08 PM [facility] REPOSITORY TYPE CODE TESTS RESULT OUT OF [...] By: #### L100.0500, L500.2500, L501.9520, L506.0500 #### [facility] [address] [place], [address] BASIC METABOLIC Collected: 12/15/2017 Status: F Source: [place] PROFILE (BMP) 12:08 PM [facility] REPOSITORY TYPE CODE TESTS RESULT OUT OF [...] By: #### L100.0500, L500.2500, L501.9520, L506.0500 #### [facility] [address] [place], [address] THYROID STIM HORMONE Collected: 12/15/2017 Status: F Source: [place] (TSH) 12:08 PM [facility] REPOSITORY TYPE CODE TESTS RESULT OUT OF RANGE REFERENCE UNITS LAB L501.9520 0.358-3.74 uIU/mL Normal TSH 1.25 Performed By: #### L100.0500, L500.2500, L501.9520, L506.0500 #### [facility] [address] [place], [address] PREALBUMIN Collected: 12/15/2017 Status: F Source: [place] 12:08 PM [facility] REPOSITORY TYPE CODE TESTS RESULT OUT OF RANGE REFERENCE UNITS LAB L506.0500 20.0-40.0 mg/dL Normal PREALBUMIN 34.8 Performed By: #### L100.0500, L500.2500, L501.9520, L506.0500 #### [facility] [address] [place], [address] PLASTIC SURGERY Observed: 12/08/2017 Status: F Source: [place] VISIT REPORT 10:37 AM [facility] REPOSITORY [facility] [address] [place] [address] OFFICE VISIT Date of Service: 11/12/17 MR#: [id number] Acct: [id number] Name: ROBLES CARRASQUILLO Rep #: [id number] : 1970 Provider: Sean Stevenson MD Age/Sex: 47/F Location: [facility] Status: Signed Intake Vital Signs11/12/17 Height 5 ft 6 in 11/12/17 Weight: 268 lb 7 oz Intake Visit Reasons: evaluation breast reconstruction Cytotechnologist Required: No Accompanied by: None Is patient [...] mg PO QHS 12/03/17 [History Confirmed 12/03/17] [facility] Medical History Abscess (Acute) Anemia (Acute) Anxiety [...] Gastric bypass due to severe obesity 04/10/10 [place] 158lbs loss. Incisional hernia repair 07/03/10 panniculectomy [...] She is interested in a saline tissue supervisor refining followed by replacement cohesive gel implant. Autogenous [...] proceeding with placement of a saline tissue supervisor refining at this time. She understands that with [...] I will proceed with the saline tissue supervisor refining next month because of her recent MRSA [...] were included in a form from the [place] [employer]. Will check a [...] PLASTIC SURGERY Observed: 11/11/2017 Status: F Source: [place] VISIT REPORT 8:10 AM [facility] REPOSITORY [facility] [address] [facility] [address] [place] [address] OFFICE VISIT Date of Service: 10/08/17 MR#: [id number] Acct: [id number] Name: ROBLES CARRASQUILLO Rep #: [id number] : 1970 Provider: Sean Stevenson MD Age/Sex: 47/F Location: [facility] Status: Signed Intake Vital Signs10/08/17 Height 5 ft 6 in 10/08/17 Weight: 263 lb 4 oz Intake Visit Reasons: evaluation breast reconstruction Cytotechnologist Required: No Accompanied by: None Is patient [...] Gastric bypass due to severe obesity 04/10/10 [place] 158lbs loss. Incisional hernia repair 07/03/10 panniculectomy [...] ALLERGIES: Codeine. Penicillin. NSAID's. FAMILY HISTORY: Father (sushant.) - Has Family History of Hypertension PGM [...] She is interested in a saline tissue supervisor refining followed by replacement cohesive gel implant. Autogenous [...] proceeding with placement of a saline tissue supervisor refining at this time. She understands that with [...] would consider proceeding with the saline tissue supervisor refining in a couple of months because of [...] Cosigner Signature: Date (if applicable) CC: Eduardo Peters DO ALLERGIES ALLERGIES DATE TYPE / CODE NAME / CODE REACTION SEVERITY SOURCE 10/20/2018 Drug NSAIDS Other Unknown [place] Allergy/416 (Non-Steroidal Community 627211([facility] Anti-Inflamma/F001 Hospital ED CT) 565105(RXNORM) Repository 10/20/2018 Drug Penicillins/Q37080 Rash Unknown [place] Allergy/416 0476(RXNORM) Community 121338([facility] ED CT) Repository 10/20/2018 Drug codeine/[id number] Rash Unknown [place] Allergy/416 (RXNORM) Community 148270([facility] ED CT) Repository 07/18/2006 DRUG NAPROXEN SODIUM GI UPSET [facility] INGREDI/419 [facility] 228035(SNOM Repository ED CT) 07/18/2006 DRUG CODEINE RASH [facility] INGREDI/419 [facility] 824637(SNOM Repository ED CT) 07/18/2006 Drug PENICILLINS HIVES [facility] Class/28607 [facility] 1003(SNOMED Repository CT) ENCOUNTERS ENCOUNTERS ADMIT/DISCHARGE ACCOUNT ADMITTING ENCOUNTER LOCATION SOURCE NUMBER CLASS 10/20/2018 [id number] Ambulatory [facility] Hospital ing:[facility] Repository 10/20/2018 [id number] Ambulatory [facility] ing:[facility] Repository 10/14/2018/10/14/19 [id number] Ambulatory BMSBuilding:B [place] [address] [place].[facility] Repository 10/13/2018 [id number] Ambulatory [facility] ing: Repository 10/09/2018 [id number] Ambulatory [facility] Hospital ing: Repository 10/07/2018/10/07/19 [id number] Ambulatory BMSBuilding:B [place] 19 [place].[facility] Repository 10/01/2018/10/01/19 [id number] Ambulatory BMSBuilding:B [place] 19 MS.[facility] Repository 09/28/2018 [id number] Ambulatory [facility] ing:[facility] Repository 09/25/2018/09/25/20 [id number] Ambulatory BMSBuilding:B [place] [address] [place].[facility] Repository 09/21/2018/09/21/20 [id number] Ambulatory [address] Hospital ing:[facility] Repository 09/17/2018/09/17/20 [id number] Ambulatory BMSBuilding:B [place] [address] [place].[facility] Repository 09/09/2018 [id number] Sean Stevenson Ambulatory BMSBuilding:B [place].CF.[facility] Repository 09/09/2018 [id number] Graham Sean Ambulatory BMSBuilding:B [place].CF.[facility] Repository 09/09/2018 [id number] Graham Sean Ambulatory BMSBuilding:B [place] MANDEL..[facility] Repository 09/09/2018 [id number] Graham Sean Ambulatory BMSBuilding:B [place] MANDEL.CF.[facility] Repository 09/09/2018/09/10/20 [id number] Graham Sean Inpatient [address] ing:WN5Hvvl: Repository PH026Oae: 1 08/31/2018/09/28/20 [id number] Ambulatory [address] Hospital ing: Repository 08/28/2018 [id number] Ambulatory [facility] Rep[facility] 08/24/2018 [id number] Ambulatory BMSBuilding:[place].[facility] Repository 08/24/2018/08/28/20 [id number] Ambulatory [address] Hospital ing: Repository 08/17/2018 [id number] Ambulatory BMSBuilding:B [place] MANDEL.[facility] Repository 08/10/2018 [id number] Ambulatory BMSBuilding:[place].[facility] Repository 08/03/2018 [id number] Ambulatory BMSBuilding:B [place] MAN[place]..[facility] Repository 07/27/2018 [id number] Ambulatory BMSBuilding:B [place]..[facility] Repository 07/27/2018/07/29/20 [id number] Ambulatory [address] Hospital ing: Repository 07/20/2018 [id number] Ambulatory BMSBuilding:[place].[facility] Repository 07/13/2018 [id number] Ambulatory BMSBuilding:B [place] MANDEL..[facility] Repository 07/06/2018 [id number] Ambulatory BMSBuilding:B [place] MANDEL..[facility] Repository 07/01/2018/07/01/20 [id number] Ambulatory BMSBuilding:B [place] 18 MS.[facility] Repository 06/29/2018 [id number] Ambulatory BMSBuilding:B [place] MS.CF.[facility] Repository 06/29/2018/06/29/20 [id number] Ambulatory [address] ing:LAB Repository 06/22/2018/06/28/20 [id number] Ambulatory [address] ing:[facility] Repository 06/15/2018 [id number] Ambulatory BMSBuilding:B [place].CF.[facility] Repository 06/15/2018/06/28/20 [id number] Ambulatory [address] ing: Repository 06/04/2018/06/04/20 [id number] Ambulatory BMSBuilding:B [place] [address] MS.[facility] Repository 05/27/2018/05/29/20 [id number] Ambulatory [address] ing:[facility] Repository 05/26/2018/05/28/20 [id number] Ambulatory [address] Repository 05/19/2018/05/21/20 [id number] Sean Stevenson Inpatient [address] ing:RD5Amkl: Repository QX404Xpw: 1 05/19/2018 [id number] Sean Stevenson Ambulatory BMSBuilding:B [place].[facility] Repository 05/19/2018 [id number] Sean Stevenson Ambulatory BMSBuilding:B [place].[facility] Repository 05/19/2018 [id number] Sean Stevenson Ambulatory BMSBuilding:[facility] [place].CF.[facility] Repository 05/19/2018 [id number] Ambulatory BMSBuilding:B [place].CF.[facility] Repository 05/19/2018/05/19/20 [id number] Ambulatory BMSBuilding:B [place] 18 MS.[facility] Repository 05/12/2018/05/12/20 [id number] Ambulatory BMSBuilding:B [place] 18 MS.[facility] Repository 05/08/2018 [id number] [facility] Repository 05/05/2018/05/07/20 [id number] RamaarmandoSean Inpatient [place] Hospital ing:EP4Ngtv: Repository MI201Qfo: 1 05/05/2018 [id number] Ramaarmando Sean Ambulatory BMSBuilding:B [place] MS.CF.[facility] Hospital Repository 05/05/2018 [id number] RamaSean roberts Ambulatory BMSBuilding:B Rohini MS.CF.[facility] Hospital Repository 04/27/2018 [id number] [facility]MTLAB Repository 04/14/2018 [id number] [facility] ing:PAT Repository 03/12/2018 [id number] Ambulatory [facility] Hospital ing:LABSPEC Repository 03/12/2018/03/12/20 [id number] Ambulatory BMSBuilding:B Rohini [address] Hospital Repository 02/25/2018/02/26/20 [id number] Ambulatory BMSBuilding:B Rohini [address] Hospital Repository 02/11/2018/02/12/20 [id number] Ambulatory BMSBuilding:B Rohini [address] Hospital Repository 02/04/2018/02/05/20 [id number] Ambulatory BMSBuilding:B Franklin [address] Hospital Repository 02/02/2018 [id number] [facility]:MED[facility]P Repository 01/26/[id number] [facility] Hospital ing:MEDOUTP Repository 01/19/[id number] [facility] HospitalBuild Hospital ing:MEDOUTP Repository 01/16/2018/01/17/20 [id number] Ambulatory BMSBuilding:B [place] [address] Hospital Repository 01/12/2018 [id number] [facility] ing:MEDOUTP Repository 01/10/2018/01/11/20 [id number] Emergency [address] Hospital ing:ED Repository 01/06/2018/01/07/20 [id number] Ambulatory BMSBuilding:B Rohini 20 MS.[facility] Repository 01/05/2018 [id number] Ambulatory [facility] Hospital ing:MEDOUTP Repository 01/02/2018/01/03/20 [id number] Ambulatory BMSBuilding:B Franklin 18 MS.[facility] Repository 01/02/2018 [id number] Ambulatory [facility] Hospital ing:MEDOUTP Repository 12/29/2017 [id number] Ambulatory [facility] Hospital ing:MEDOUTP Repository 12/25/2017/12/26/19 [id number] Ambulatory BMSBuilding:B Rohini 20 MS.[facility] Repository 12/22/2017 [id number] Ambulatory [facility] Hospital ing:MEDOUTP Repository 12/17/2017/12/19/19 [id number] Sean Stevenson Ambulatory [address] Hospital ing:BQ5Ckba: Repository CL029Lxe: 1 12/17/2017 [id number] Sean Stevenson Ambulatory BMSBuilding:B Rohini MS.CF.[facility] Repository 12/15/2017 [id number] Ambulatory BMSBuilding:B Rohini MS.CF.[facility] Repository 11/12/2017/11/12/19 [id number] Ambulatory BMSBuilding:B Franklin 18 MS.[facility] Repository 10/30/2017 [id number] Ambulatory BMS [facility] Repository 10/08/2017/10/08/19 [id number] Ambulatory BMSBuilding:B Rohini 20 MS.[facility] Repository PAYERS PAYERS ENCOUNTER GUARANTOR PAYER SUBSCRIBER SOURCE 10/20/2018 ROBLES Nova [id number] FRIAR Insurance:MEDICARE HOVINGDOB: [facility], PART A BPolic [id number] [address]Pyr: Number: Repository [id number] (HP) Date:2018-10-20 10/20/2018 Secondary ROBLES Hyde Rohini Insurance:MEDICAIDPol HOVINGDOB: [facility] icy Number: [id number] Hospital [id number] Repository Date:2018-10-20 10/20/2018 Tertiary NOT GIVENUNK Rohini Insurance:SELF PAY [facility] Number: Effective Repository Date:2018-10-20 10/20/2018 ROBLES Hyde Primary ROBLES Nova [id number] FRIAR Insurance:MEDICARE HOVINGDOB: [facility], PART A [facility] [id number] Hospital [place] [address]Hqb: Number: Repository [id number] (HP) Date:2018-09-28 10/20/2018 Secondary ROBLES Hyde [place] Insurance:MEDICAIDPol HOVINGDOB: [facility] icy Number: [id number] Hospital [id number] Repository Date:2018-09-28 10/20/2018 Tertiary NOT GIVENUNK [place] Insurance:SELF PAY [facility] Number: Effective Repository Date:2018-09-28 10/14/2018 ROBLES Hyde Primary ROBLES Nova [id number] FRIAR Insurance:MEDICARE HOVINGDOB: [facility], PART A [facility] [id number] Medical Center [address]Qnq: Number: Repository [id number] (HP) Date:2018-10-07 10/14/2018 Secondary ROBLES Hyde Rohini Insurance:MEDICAIDPol HOVINGDOB: [facility] icy Number: [id number] Hospital [id number] Repository Date:2018-10-07 10/14/2018 Tertiary NOT GIVENUNK Rohini Insurance:SELF PAY [facility] Number: Effective Repository Date:2018-10-12 10/13/2018 ROBLES Hyde Primary ROBLES Nova [id number] FRIAR Insurance:MEDICARE HOVINGDOB: [facility], PART A [facility] [id number] [place] [address]Ubs: Number: Repository [id number] (HP) Date:2018-10-07 10/13/2018 Secondary ROBLES Hyde [place] Insurance:MEDICAIDPol HOVINGDOB: [facility] icy Number: [id number] Hospital [id number] Repository Date:2018-10-07 10/13/2018 Tertiary NOT GIVENUNK Rohini Insurance:SELF PAY [facility] Number: Effective Repository Date:2018-10-07 10/09/2018 ROBLES Hyde Primary NOT GIVENUNK [place] [id number] FRIAR Insurance:SELF PAY [facility] [address]Yyb: Number: Effective Repository Date:2018-09-29 () 10/07/2018 ROBLES Hyde Primary ROBLES Nova [id number] FRIAR Insurance:MEDICARE HOVINGDOB: [facility], PART A [facility] [id number] Medical Center [address]Hgi: Number: Repository [id number] () Date:2018-10-01 10/07/2018 Secondary ROBLES Hyde Rohini Insurance:MEDICAIDPol HOVINGDOB: [facility] ic Number: [id number] Hospital [id number] Repository Date:2018-10-01 10/07/2018 Tertiary NOT GIVENUNK [place] Insurance:SELF PAY [facility] Number: Effective Repository Date:2018-10-07 10/01/2018 ROBLES Hyde Primary ROBLES Nova [id number] FRIAR Insurance:MEDICARE HOVINGDOB: [facility], PART A [facility] [id number] Medical Center [address]Dgs: Number: Repository [id number] (HP) Date:2018-09-25 10/01/2018 Secondary ROBLES Hyde Rohini Insurance:MEDICAIDPol HOVINGDOB: [facility] icy Number: [id number] Hospital [id number] Repository Date:2018-09-25 10/01/2018 Tertiary NOT GIVENUNK [place] Insurance:SELF PAY [facility] Number: Effective Repository Date:2018-09-28 09/28/2018 ROBLES Hyde Primary ROBLES Nova [id number] FRIAR Insurance:MEDICARE [facility] [id number] Medical Center [address]Sri: Number: Repository [id number] () Date:2018-09-28 09/28/2018 Secondary ROBLES Nova Insurance:MEDICAIDPol HOVINGDOB: [facility] icy Number: [id number] Hospital [id number] Repository Date:2018-09-28 09/28/2018 Tertiary NOT GIVENUNK [place] Insurance:SELF PAY [facility] Number: Effective Repository Date:2018-09-28 09/25/2018 ROBLES Hyde Primary ROBLES Nvoa [id number] FRIAR Insurance:MEDICARE [facility] [id number] Medical Center [address]Abf: Number: Repository [id number] () Date:2018-09-17 09/25/2018 Secondary ROBLES Nova Insurance:MEDICAIDPol HOVINGDOB: [facility] icy Number: [id number] Hospital [id number] Repository Date:2018-09-17 09/25/2018 Tertiary NOT GIVENUNK [place] Insurance:SELF PAY [facility] Number: Effective Repository Date:2018-09-25 09/21/2018 ROBLES Nova [id number] FRIAR Insurance:CARESOURCEP HOVINGDOB: [facility] Number: [id number] Medical Center [address]Wzt: [id number] Repository Date:2018-05-11 O () [address]ATTN: [place] [address]TR: 09/21/2018 Secondary NOT GIVENUNK Rohini Insurance:SELF PAY [facility] Number: Effective Repository Date:2018-06-30 09/17/2018 ROBLES Nova [id number] FRIAR Insurance:MEDICARE [facility] [id number] Medical Center [address]Jbn: Number: Repository [id number] () Date:2018-09-14 09/17/2018 Secondary ROBLES Nova Insurance:MEDICAIDPol HOVINGDOB: [facility] icy Number: [id number] Hospital [id number] Repository Date:2018-09-14 09/17/2018 Tertiary NOT GIVENUNK Rohini Insurance:SELF PAY [facility] Number: Effective Repository Date:2018-09-17 09/09/2018 ROBLES Hyde Primary ROBLES Nova [id number] FRIAR Insurance:MEDICARE HOVINGDOB: [facility], PART A [facility] [id number] Medical Center [address]Hnx: Number: Repository [id number] () Date:2018-08-28 09/09/2018 Secondary ROBLES Hyde Rohini Insurance:MEDICAIDPol HOVINGDOB: [facility] icy Number: [id number] Hospital [id number] Repository Date:2018-08-28 09/09/2018 Tertiary NOT GIVENUNK Rohini Insurance:SELF PAY [facility] Number: Effective Repository Date:2018-09-07 09/09/2018 ROBLES Nova [id number] FRIAR Insurance:MEDICARE [facility] [id number] Medical Center [address]Zut: Number: Repository [id number] () Date:2018-08-28 09/09/2018 Secondary ROBLES Borjasoster Insurance:MEDICAIDPol HOVINGDOB: [facility] icy Number: [id number] Hospital [id number] Repository Date:2018-08-28 09/09/2018 Tertiary NOT GIVENUNK [place] Insurance:SELF PAY [facility] Number: Effective Repository Date:2018-09-08 09/09/2018 ROBLES Nova [id number] FRIAR Insurance:MEDICARE [facility] [id number] Medical Center [address]Bux: Number: Repository [id number] () Date:2018-08-28 09/09/2018 Secondary ROBLES Borjasoster Insurance:MEDICAIDPol HOVINGDOB: [facility] icy Number: [id number] Hospital [id number] Repository Date:2018-08-28 09/09/2018 Tertiary NOT GIVENUNK Rohini Insurance:SELF PAY [facility] Number: Effective Repository Date:2018-09-09 09/09/2018 ROBLES Hyde Primary ROBLES Nova [id number] FRIAR Insurance:MEDICARE HOVINGDOB: [facility], PART A [facility] [id number] Medical Center [address]Auh: Number: Repository [id number] () Date:2018-08-28 09/09/2018 Secondary ROBLES Hyde [place] Insurance:MEDICAIDPol HOVINGDOB: [facility] ic Number: [id number] Hospital [id number] Repository Date:2018-08-28 09/09/2018 Tertiary NOT GIVENUNK [place] Insurance:SELF PAY [facility] Number: Effective Repository Date:2018-09-09 09/09/2018 ROBLES Nova [id number] FRIAR Insurance:MEDICARE [facility]OVINGD[facility] [id number] Medical Center [address]Kir: Number: Repository [id number] () Date:2018-08-28 09/09/2018 Secondary ROBLES Hyde [place] Insurance:MEDICAIDPol HOVINGDOB: [facility] icy Number: [id number] Hospital [id number] Repository Date:2018-08-28 09/09/2018 Tertiary NOT GIVENUNK Rohini Insurance:SELF PAY [facility] Number: Effective Repository Date:2018-08-28 08/31/2018 ROBLES Hyde Primary ROBLES Nova [id number] FRIAR Insurance:MEDICARE [facility] [id number] Medical Center [address]Fxe: Number: Repository [id number] (HP) Date:2018-08-29 08/31/2018 Secondary ROBLES Borjasoster Insurance:MEDICAIDPol HOVINGDOB: Community icy Number: [id number] Hospital [id number] Repository Date:2018-08-29 08/31/2018 Tertiary NOT GIVENUNK [place] Insurance:SELF PAY [facility] Number: Effective Repository Date:2018-08-29 08/28/2018 ROBLES Hyde Primary ROBLES Nova [id number] FRIAR Insurance:MEDICARE HOVINGDOB: [facility], PART A [facility] [id number] Medical Center [address]Cpz: Number: Repository [id number] (HP) Date:2018-08-25 08/28/2018 Secondary ROBLES Hyde Rohini Insurance:MEDICAIDPol HOVINGDOB: [facility] ic Number: [id number] Hospital [id number] Repository Date:2018-08-25 08/28/2018 Tertiary NOT GIVENUNK Rohini Insurance:SELF PAY [facility] Number: Effective Repository Date:2018-08-25 08/24/2018 ROBLES Hyde Primary ROBLES Nova [id number] FRIAR Insurance:MEDICARE HOVINGDOB: [facility] [id number] Medical Center [address]Jjf: Number: Repository [id number] (HP) Date:2018-06-29 08/24/2018 Secondary ROBLES Hyde Rohini Insurance:MEDICAIDPol HOVINGDOB: Community icy Number: [id number] Hospital [id number] Repository Date:2018-06-29 08/24/2018 Tertiary NOT GIVENUNK [place] Insurance:SELF PAY [facility] Number: Effective Repository Date:2018-08-24 08/24/2018 ROBLES Hyde Primary ROBLES Nova [id number] FRIAR Insurance:MEDICARE HOVINGDOB: [facility] A [facility] [id number] Medical Center [address]Mag: Number: Repository [id number] (HP) Date:2018-06-29 08/24/2018 Secondary ROBLES Hyde Rohini Insurance:MEDICAIDPol HOVINGDOB: Community icy Number: [id number] Hospital [id number] Repository Date:2018-06-29 08/24/2018 Tertiary NOT GIVENUNK Rohini Insurance:SELF PAY [facility] Number: Effective Repository Date:2018-07-30 08/17/2018 ROBLES Hyde Primary ROBLES Nova [id number] FRIAR Insurance:MEDICARE HOVINGDOB: [facility], PART A [facility] [id number] Medical Center [address]Zgv: Number: Repository [id number] (HP) Date:2018-06-29 08/17/2018 Secondary ROBLES Hyde Rohini Insurance:MEDICAIDPol HOVINGDOB: Community ic Number: [id number] Hospital [id number] Repository Date:2018-06-29 08/17/2018 Tertiary NOT GIVENUNK [place] Insurance:SELF PAY [facility] [place] Number: Effective Repository Date:2018-08-17 08/10/2018 ROBLES Hyde Primary ROBLES Nova [id number] FRIAR Insurance:MEDICARE HOVINGDOB: [facility] A [facility] [id number] Medical Center [address]Sna: Number: Repository [id number] (HP) Date:2018-06-29 08/10/2018 Secondary ROBLES Hyde [place] Insurance:MEDICAIDPol HOVINGDOB: Community icy Number: [id number] Hospital [id number] Repository Date:2018-06-29 08/10/2018 Tertiary NOT GIVENUNK [place] Insurance:SELF PAY [facility] Number: Effective Repository Date:2018-08-10 08/03/2018 ROBLES Hyde Primary ROBLES Nova [id number] FRIAR Insurance:MEDICARE HOVINGDOB: [facility] A [facility] [id number] Medical Center [address]Kkj: Number: Repository [id number] (HP) Date:2018-06-29 08/03/2018 Secondary ROBLES Hyde Rohini Insurance:MEDICAIDPol HOVINGDOB: Community icy Number: [id number] Hospital [id number] Repository Date:2018-06-29 08/03/2018 Tertiary NOT GIVENUNK Rohini Insurance:SELF PAY [facility] Number: Effective Repository Date:2018-08-03 07/27/2018 ROBLES Hyde Primary ROBLES Nova [id number] FRIAR Insurance:MEDICARE HOVINGDOB: [facility] [place] PART A [facility] [id number] Medical Center [address]Cvm: Number: Repository [id number] (HP) Date:2018-06-29 07/27/2018 Secondary ROBLES Hyde Rohini Insurance:MEDICAIDPol HOVINGDOB: Community icy Number: [id number] Hospital [id number] Repository Date:2018-06-29 07/27/2018 Tertiary NOT GIVENUNK Rohini Insurance:SELF PAY [facility] [place] Number: Effective Repository Date:2018-07-27 07/27/2018 ROBLES Hyde Primary ROBLES Nova [id number] FRIAR Insurance:MEDICARE HOVINGDOB: [facility] A [facility] [id number] Medical Center [address]Gbb: Number: Repository [id number] (HP) Date:2018-06-29 07/27/2018 Secondary ROBLES Hyde [place] Insurance:MEDICAIDPol HOVINGDOB: Community icy Number: [id number] Hospital [id number] Repository Date:2018-06-29 07/27/2018 Tertiary NOT GIVENUNK Rohini Insurance:SELF PAY [facility] Number: Effective Repository Date:2018-06-29 07/20/2018 ROBLES Hyde Primary ROBLES Nova [id number] FRIAR Insurance:MEDICAIDPol HOVINGDOB: [facility] [place], icy Number: [id number] Medical Center [address]Onm: [id number] Repository Date:2018-06-29 () 07/20/2018 Secondary ROBLES Hyde Rohini Insurance:MEDICARE HOVINGDOB: Community PART A [facility] [id number] Hospital Number: Repository [id number] Date:2018-06-29 07/20/2018 Tertiary NOT GIVENUNK Rohini Insurance:SELF PAY [facility] [place] Number: Effective Repository Date:2018-07-20 07/13/2018 ROBLES Hyde Primary ROBLES Nova [id number] FRIAR Insurance:MEDICARE HOVINGDOB: [facility] [place], PART A [facility] [id number] Medical Center [address]Bih: Number: Repository [id number] () Date:2018-07-13 07/13/2018 Secondary ROBLES Hyde [place] Insurance:MEDICAIDPol HOVINGDOB: [facility] icy Number: [id number] Hospital [id number] Repository Date:2018-06-29 07/13/2018 Tertiary NOT GIVENUNK [place] Insurance:SELF PAY [facility] Number: Effective Repository Date:2018-07-13 07/06/2018 ROBLES Hyde Primary ROBLES Nova [id number] FRIAR Insurance:MEDICAIDPol HOVINGDOB: [facility], icy Number: [id number] Medical Center [address]Mry: [id number] Repository Date:2018-06-29 () 07/06/2018 Secondary NOT GIVENUNK [place] Insurance:SELF PAY [facility] Number: Effective Repository Date:2018-07-06 07/01/2018 ROBLES Hyde Primary ROBLES Nova [id number] FRIAR Insurance:MEDICARE HOVINGDOB: [facility], PART A [facility] [id number] Medical Center [address]Xpz: Number: Repository [id number] () Date:2018-07-01 07/01/2018 Secondary ROBLES Hyde [place] Insurance:MEDICAIDPol HOVINGDOB: [facility] icy Number: [id number] Hospital [id number] Repository Date:2018-07-01 07/01/2018 Tertiary NOT GIVENUNK [place] Insurance:SELF PAY [facility] Number: Effective Repository Date:2018-07-01 06/29/2018 ROBLES Hyde Primary ROBLES Nova [id number] FRIAR Insurance:MEDICARE HOVINGDOB: [facility], PART A [facility] [id number] Medical Center [address]Bnd: Number: Repository [id number] (HP) Date:2018-06-29 06/29/2018 Secondary ROBLES Hyde [place] Insurance:MEDICAIDPol HOVINGDOB: [facility] ic Number: [id number] Hospital [id number] Repository Date:2018-06-29 06/29/2018 Tertiary NOT GIVENUNK [place] Insurance:SELF PAY [facility] Number: Effective Repository Date:2018-06-29 06/29/2018 ROBLES Hyde Primary ROBLES Nova [id number] FRIAR Insurance:CARESOURCEP [facility] Number: [id number] Medical Center [address]Wcd: [id number] Repository Date:2018-05-11 O () [address]ATTN: [place] [address]SO: 06/29/2018 Secondary NOT GIVENUNK Rohini Insurance:SELF PAY [facility] Number: Effective Repository Date:2018-06-29 06/22/2018 ROBLES Nova [id number] FRIAR Insurance:CARESOURCEP HOVINGDOB: [facility] Number: [id number] Medical Center [address]Ruu: [id number] Repository Date:2018-05-11L O ) [address]ATTN: [place] [address]VL: 06/22/2018 Secondary NOT GIVENUNK Rohini Insurance:SELF PAY [facility] Number: Effective Repository Date:2018-05-30 06/15/2018 ROBLES Nova [id number] FRIAR Insurance:CARESOURCEP HOVINGDOB: [facility] shonda ALMARAZ Number: [id number] Medical Center [address]Lst: [id number] Repository Date:2018-06-15P O (HP) [address]ATTN: [place] [address]XZ: 06/15/2018 Secondary NOT GIVENUNK [place] Insurance:SELF PAY [facility] Number: Effective Repository Date:2018-06-15 06/15/2018 ROBLES Nova [id number] FRIAR Insurance:CARESOURCEP HOVINGDOB: [facility] shonda ALMARAZ Number: [id number] Medical Center [address]Xep: [id number] Repository Date:2018-06-15P O (HP) [address]ATTN: [place] [address]YU: 06/15/2018 Secondary NOT GIVENUNK [place] Insurance:SELF PAY [facility] Number: Effective Repository Date:2018-06-15 06/04/2018 ROBLES Nova [id number] FRIAR Insurance:CARESOURCEP HOVINGDOB: [facility] shonda ALMARAZ Number: [id number] Medical Center [address]Ory: [id number] Repository Date:2018-05-26P O (HP) [address]ATTN: [place] [address]WW: 06/04/2018 Secondary NOT GIVENUNK [place] Insurance:SELF PAY [facility] Number: Effective Repository Date:2018-06-02 05/27/2018 ROBLES Nova [id number] FRIAR Insurance:CARESOURCEP HOVINGDOB: Community shonda ALMARAZ Number: [id number] Medical Center [address]Yxj: [id number] Repository Date:2018-05-11P O (HP) [address]ATTN: [place] [address]GW: 05/27/2018 Secondary NOT GIVENUNK Rohini Insurance:SELF PAY [facility] Number: Effective Repository Date:2018-05-11 05/19/2018 ROBLES Nova [id number] FRIAR Insurance:CARESOURCEP HOVINGDOB: [facility] shonda ALMARAZ Number: [id number] Medical Center [address]Dmt: [id number] Repository Date:2018-05-19P O (HP) [address]ATTN: [place] [address]EC: 05/19/2018 Secondary NOT GIVENUNK Rohini Insurance:SELF PAY [facility] Number: Effective Repository Date:2018-05-19 05/19/2018 ROBLES Nova [id number] FRIAR Insurance:CARESOURCEP HOVINGDOB: [facility] shonda ALMARAZ Number: [id number] Medical Center [address]Shr: [id number] Repository Date:2018-05-19P O (HP) [address]ATTN: [place] [address]WT: 05/19/2018 Secondary NOT GIVENUNK Rohini Insurance:SELF PAY [facility] Number: Effective Repository Date:2018-05-19 05/19/2018 ROBLES Nova [id number] FRIAR Insurance:CARESOURCEP HOVINGDOB: [facility] shonda ALMARAZ Number: [id number] Medical Center [address]Ycp: [id number] Repository Date:2018-05-19P O (HP) [address] [address]IL: 05/19/2018 Secondary NOT GIVENUNK Rohini Insurance:SELF PAY [facility] Number: Effective Repository Date:2018-05-19 05/19/2018 ROBLES Hyde Primary ROBLES Nova [id number] FRIAR Insurance:CARESOURCEP HOVINGDOB: Community shonda ALMARAZ Number: [id number] Medical Center [address]Ebp: [id number] Repository Date:2018-05-19P O (HP) [address]ATTN: [place] [address]UO: 05/19/2018 Secondary NOT GIVENUNK [place] Insurance:SELF PAY [facility] Number: Effective Repository Date:2018-05-19 05/19/2018 ROBLES Hyde Primary ROBLES Nova [id number] FRIAR Insurance:CARESOURCEP HOVINGDOB: Community shonda ALMARAZ Number: [id number] Medical Center [address]Hmt: [id number] Repository Date:2018-05-19P O (HP) [address]ATTN: [place] [address]XL: 05/19/2018 Secondary NOT GIVENUNK [place] Insurance:SELF PAY [facility] Number: Effective Repository Date:2018-05-19 05/19/2018 ROBLES Hyde Primary ROBLES Nova [id number] FRIAR Insurance:CARESOURCEP HOVINGDOB: Community shonda ALMARAZ Number: [id number] Medical Center [address]Wda: [id number] Repository Date:2018-05-12P O (HP) [address]ATTN: [place] [address]BJ: 05/19/2018 Secondary NOT GIVENUNK Rohini Insurance:SELF PAY [facility] Number: Effective Repository Date:2018-05-19 05/12/2018 ROBLES Nova [id number] FRIAR Insurance:CARESOURCEP HOVINGDOB: [facility] shonda ALMARAZ Number: [id number] Medical Center [address]Mmz: [id number] Repository Date:2018-05-08P O () [address]ATTN: [place] [address]CR: 05/12/2018 Secondary NOT GIVENUNK Rohini Insurance:SELF PAY [facility] Number: Effective Repository Date:2018-05-12 05/08/2018 ROBLES Nova [id number] FRIAR Insurance:CARESOURCEP HOVINGDOB: [facility] shonda ALMARAZ Number: [id number] Medical Center [address]883Zls: [id number] Repository Date:2018-05-08P O () [address]ATTN: [place] [address]YN: 05/08/2018 Secondary NOT GIVENUNK Rohini Insurance:SELF PAY [facility] Number: Effective Repository Date:2018-05-08 05/05/2018 ROBLES Nova [id number] FRIAR Insurance:CARESOURCEP [facility] Number: [id number] Medical Center [address]Ien: [id number] Repository Date:2018-04-30P O () [address]ATTN: [place] [address]PD: 05/05/2018 Secondary NOT GIVENUNK Rohini Insurance:SELF PAY [facility] Number: Effective Repository Date:2018-04-30 05/05/2018 ROBLES Nova [id number] FRIAR Insurance:CARESOURCEP [facility] Number: [id number] Medical Center [address]Jlp: [id number] Repository Date:2018-04-30P O (HP) [address]ATTN: [place] [address]JH: 05/05/2018 Secondary NOT GIVENUNK [place] Insurance:SELF PAY [facility] Number: Effective Repository Date:2018-05-05 05/05/2018 ROBLES Hyde Primary ROBLES Nova [id number] FRIAR Insurance:CARESOURCEP HOVINGDOB: [facility] shonda ALMARAZ Number: [id number] Medical Center [address]Gxl: [id number] Repository Date:2018-04-30P O (HP) [address]ATTN: [place] [address]JR: 05/05/2018 Secondary NOT GIVENUNK [place] Insurance:SELF PAY [facility] Number: Effective Repository Date:2018-05-05 04/27/2018 ROBLES Hyde Primary ROBLES Nova [id number] FRIAR Insurance:CARESOURCEP HOVINGDOB: [facility] shonda LOVE Number: [id number] Medical Center [address]Vwb: [id number] Repository Date:2018-04-27P O (HP) [address]ATTN: [place] [address]LF: 04/27/2018 Secondary NOT GIVENUNK Rohini Insurance:SELF PAY [facility] Number: Effective Repository Date:2018-04-27 04/14/2018 ROBLES Nova [id number] FRIAR Insurance:CARESOURCEP HOVINGDOB: [facility] shonad ALMARAZ Number: [id number] Medical Center [address]Pkk: [id number] Repository Date:2018-03-25P O (HP) [address]ATTN: [place] [address]JB: 04/14/2018 Secondary NOT GIVENUNK [place] Insurance:SELF PAY [facility] Number: Effective Repository Date:2018-03-25 03/12/2018 ROBLES Nova [id number] FRIAR Insurance:CARESOURCEP HOVINGDOB: [facility] shonda LOVE Number: [id number] Medical Center [address]Oju: [id number] Repository [phone] Date:2018-03-12P O -6 (HP) [address]ATTN: [place] [address]ME: 03/12/2018 Secondary NOT GIVENUNK Rohini Insurance:SELF PAY [facility] Number: Effective Repository Date:2018-03-12 03/12/2018 ROBLES Nova [id number] FRIAR Insurance:CARESOURCEP [facility] Number: [id number] Medical Center [address]Cpp: [id number] Repository [phone] Date:2018-02-25P O -6 (HP) [address]ATTN: [place] [address]XQ: 03/12/2018 Secondary NOT GIVENUNK [place] Insurance:SELF PAY [facility] Number: Effective Repository Date:2018-03-10 02/25/2018 ROBLES Nova [id number] FRIAR Insurance:CARESOURCEP [facility] RAM[facility]REZarmando Number: [id number] Medical Center [address]Unk: [id number] Repository [phone] Date:2018-02-11P O -6 (HP) [address]ATTN: [place] [address]PL: 02/25/2018 Secondary NOT GIVENUNK [place] Insurance:SELF PAY [facility] Number: Effective Repository Date:2018-02-17 02/11/2018 ROBLES Nova [id number] FRIAR Insurance:CARESOURCEP HOVINGDOB: [facility] shonda LOVE Number: [id number] Medical Center [address]Qim: [id number] Repository [phone] Date:2018-02-04 O -6 () [address]ATTN: [place] [address]ZA: 02/11/2018 Secondary NOT GIVENUNK Rohini Insurance:SELF PAY [facility] Number: Effective Repository Date:2018-02-10 02/04/2018 ROBLES Nova [id number] FRIAR Insurance:CARESOURCEP [facility] Number: [id number] Medical Center [address]Jvm: [id number] Repository [phone] Date:2018-01-16 O -6 () [address]ATTN: [place] [address]OY: 02/04/2018 Secondary NOT GIVENUNK Rohini Insurance:SELF PAY [facility] Number: Effective Repository Date:2018-02-02 02/02/2018 ROBLES Nova [id number] FRIAR Insurance:CARESOURCEP HOVINGDOB: [facility] shonda NEWSOME Number: [id number] Medical Center [address]Ghc: [id number] Repository Date:2018-01-27 O () [address]ATTN: [place] [address]HX: 02/02/2018 Secondary NOT GIVENUNK [place] Insurance:SELF PAY [facility] Number: Effective Repository Date:2018-01-27 01/26/2018 ROBLES Nova [id number] FRIAR Insurance:CARESOURCEP [facility] Number: [id number] Medical Center [address]Gqx: [id number] Repository Date:2018-01-12 O (HP) [address]ATTN: [place] [address]BO: 01/26/2018 Secondary NOT GIVENUNK [place] Insurance:SELF PAY [facility] Number: Effective Repository Date:2018-01-12 01/19/2018 ROBLES Nova [id number] FRIAR Insurance:CARESOURCEP HOVINGDOB: [facility] shonda LOVE Number: [id number] Medical Center [address]3585Ver: [id number] Repository Date:2018-01-12P O (HP) [address]ATTN: [place] [address]DK: 01/19/2018 Secondary NOT GIVENUNK [place] Insurance:SELF PAY [facility] Number: Effective Repository Date:2018-01-12 01/16/2018 ROBLES Nova [id number] FRIAR Insurance:CARESOURCEP HOVINGDOB: [facility] shonda NEWSOME Number: [id number] Medical Center [address]Poe: [id number] Repository Date:2018-01-06 O (HP) [address]ATTN: [place] [address]VO: 01/16/2018 Secondary NOT GIVENUNK Rohini Insurance:SELF PAY [facility] Number: Effective Repository Date:2018-01-16 01/12/2018 ROBLES Nova [id number] FRIAR Insurance:CARESOURCEP HOVINGDOB: [facility] shonda NEWSOME Number: [id number] Medical Center [address]Tdm: [id number] Repository Date:2018-01-12P O (HP) [address]ATTN: [facility] [place] [address]MS: 01/12/2018 Secondary NOT GIVENUNK [place] Insurance:SELF PAY [facility] Number: Effective Repository Date:2018-01-12 01/10/2018 ROBLES Hyde Primary ROBLES Hyde [place] [id number] FRIAR Insurance:CARESOURCEP HOVINGDOB: [facility] shonda LOVE Number: [id number] Medical Center [address]Jux: [id number] Repository Date:2018-01-10P O (HP) [address]ATTN: [place] [address]AD: 01/10/2018 Secondary NOT GIVENUNK [place] Insurance:SELF PAY [facility] Number: Effective Repository Date:2018-01-10 01/06/2018 ROBLES Nova [id number] FRIAR Insurance:CARESOURCEP [facility] Number: [id number] Medical Center [address]3083Mvr: [id number] Repository Date:2018-01-02P O (HP) [address]ATTN: [place] [address]PB: 01/06/2018 Secondary NOT GIVENUNK Rohini Insurance:SELF PAY [facility] Number: Effective Repository Date:2018-01-06 01/05/2018 ROBLES Nova [id number] FRIAR Insurance:CARESOURCEP [facility] Number: [id number] Medical Center [address]3112Rsv: [id number] Repository Date:2017-12-29P O (HP) [address]ATTN: [place] [address]FD: 01/05/2018 Secondary NOT GIVENUNK [place] Insurance:SELF PAY [facility] Number: Effective Repository Date:2017-12-29 01/02/2018 ROBLES Nova [id number] FRIAR Insurance:CARESOURCEP [facility] Number: [id number] Medical Center [address]Yvs: [id number] Repository Date:2017-12-25P O (HP) [address]ATTN: [place] [address]YR: 01/02/2018 Secondary NOT GIVENUNK Rohini Insurance:SELF PAY [facility] Number: Effective Repository Date:2018-01-02 01/02/2018 ROBLES Hyde Primary ROBLES Nova [id number] FRIAR Insurance:CARESOURCEP HOVINGDOB: Community shonda OLVE Number: [id number] Medical Center [address]Mjx: [id number] Repository Date:2018-01-02P O (HP) [address]ATTN: [place] [address]DC: 01/02/2018 Secondary NOT GIVENUNK Rohini Insurance:SELF PAY [facility] Number: Effective Repository Date:2018-01-02 12/29/2017 ROBLES Hyde Primary ROBLES Nova [id number] FRIAR Insurance:CARESOURCEP HOVINGDOB: [facility] shonda LOVE Number: [id number] Medical Center [address]Zbj: [id number] Repository Date:2017-12-22P O (HP) [address]ATTN: [place] [address]BX: 12/29/2017 Secondary NOT GIVENUNK Rohini Insurance:SELF PAY [facility] Number: Effective Repository Date:2017-12-22 12/25/2017 ROBLES Nova [id number] FRIAR Insurance:CARESOURCEP HOVINGDOB: [facility] shonda LOVE Number: [id number] Medical Center 639[address]Pwq: [id number] Repository Date:2017-12-22P O (HP) [address]ATTN: [place] [address]RR: 12/25/2017 Secondary NOT GIVENUNK Rohini Insurance:SELF PAY [facility] Number: Effective Repository Date:2017-12-25 12/22/2017 ROBLES Nova [id number] FRIAR Insurance:CARESOURCEP [facility] Number: [id number] Medical Center [address]18[address]Vrs: [id number] Repository Date:2017-12-19P O () [address]ATTN: [place] [address]AM: 12/22/2017 Secondary NOT GIVENUNK [place] Insurance:SELF PAY [facility] Number: Effective Repository Date:2017-12-19 12/17/2017 ROBLES Nova [id number] FRIAR Insurance:CARESOURCEP HOVINGDOB: [facility] Number: [id number] Medical Center [address]Ukk: [id number] Repository Date:2017-11-27P O () [address]ATTN: [place] [address]YB: 12/17/2017 Secondary NOT GIVENUNK Rohini Insurance:SELF PAY [facility] Number: Effective Repository Date:2017-11-27 12/17/2017 ROBLES Nova [id number] FRIAR Insurance:CARESOURCEP [facility]OVINGDOB[facility] Number: [id number] Medical Center [address]1832Btw: [id number] Repository Date:2017-11-27P O () [address]ATTN: [place] [address]CP: 12/17/2017 Secondary NOT GIVENUNK [place] Insurance:SELF PAY [facility] Number: Effective Repository Date:2017-12-16 12/15/2017 ROBLES Nova [id number] FRIAR Insurance:CARESOURCEP [facility]OVINGDOB[facility] Number: [id number] [facility] [address]Yma: [id number] Repository Date:2017-11-27P O (HP) [address]ATTN: [place] [address]OS: 12/15/2017 Secondary NOT GIVENUNK [place] Insurance:SELF PAY [facility] Number: Effective Repository Date:2017-12-15 11/12/2017 ROBLES [id number] Primary ROBLES HOVINGDOB: [place] FRIAR TUCK Insurance:CARESOURCEP [id number] [facility] [place]: [facility] [id number]: [id number] Repository [phone] (HP) Date:2017-10-08P O [address]ATTN: [place] [address]LE: 11/12/2017 Secondary NOT GIVENUNK Rohini Insurance:SELF PAY [facility] Number: Effective Repository Date:2017-10-08 10/30/2017 ROBLES [id number] Primary ROBLES HOVINGDOB: Rohini FRIAR TUCK Insurance:CARESOURCEP [id number] Number: Hospital [address]Mtc: [id number] Repository [phone] (HP) Date:2017-10-30P O [address]ATTN: [place] [address]UH: 10/30/2017 Secondary NOT GIVENUNK Rohini Insurance:SELF PAY [facility] Number: Effective Repository Date:2017-10-30 10/08/2017 ROBLES [id number] Primary ROBLES HOVINGDOB: Rohini FRIAR TUCK Insurance:CARESOURCEP [id number] Hospital Center Number: Hospital [address]Jgw: [phone] [id number] Repository [phone] (HP) Date:2017-09-24P O [address]ATTN: [place] [address]VA: 10/08/2017 Secondary NOT GIVENUNK Rohini Insurance:SELF PAY [facility] Number: Effective Repository Date:2017-09-24
== END 2018-09-10 13:46 | disposition home or self-care (01) | DRG 908 ==
LOC: SDC 11:43
PROVIDERS: Admitting Provider Surgery; Family Provider Student in an Organized Health Care Education/Training Program; PCP Student in an Organized Health Care Education/Training Program; Referring Provider Surgery; Visit Provider Surgery
DX: L76.82 Other postprocedural complications of skin and subcutaneous tissue (principal); L98.495 Non-pressure chronic ulcer of skin of other sites with muscle involvement without evidence of necrosis; Z68.42 Body mass index [BMI] 45.0-49.9, adult; E66.9 Obesity, unspecified; I10 Essential (primary) hypertension; Z23 Encounter for immunization; E89.0 Postprocedural hypothyroidism; Z87.891 Personal history of nicotine dependence; Z98.84 Bariatric surgery status; Z98.86 Personal history of breast implant removal; Z86.14 Personal history of Methicillin resistant Staphylococcus aureus infection
CPT/HCPCS: 36415; 36569; 80048; 80053; 80202; 84134; 85027; 87070; 87075; 87102; 87205; 87206; 87640; 88304; 97802; J7040; J7050; J7120; 90686; A4216; J2405

== ENCOUNTER 2018-09-21 12:18 | Outpatient (RCR) | payer MEDICARE, MEDICAID, SELFPAY ==
[2018-09-08 22:00] VITALS: BMI 45.3
[2018-09-14 11:29] LABS: Hematocrit 33.9 % (37-47); Hemoglobin 10.2 g/dl (12.0-15.0); Mean Corp Hgb Conc 30.1 g/gl (32-36); Mean Corpuscular Volume 89.7 fL (81-99); Platelet Count 326 K/mm3 (150-450); RBC Distribution Width CV 15.8 % (11.6-14.6); RBC Distribution Width SD 50.3 fl (35.1-43.9); Red Blood Count 3.78 M/mm3 (4.2-5.4); Scan Indicated on CBC? Y/N NO; White Blood Count 6.7 K/mm3 (4.4-11.0)
[2018-09-14 11:34] LABS: Erythrocyte Sedimentation Rate 95 mm/hr (0-20)
[2018-09-14 11:39] LABS: ALB/GLOB Ratio 0.8 RATIO (0.9-2.4); AST(SGOT) 14 U/L (15-37); Alanine Aminotransfer ALT/SGPT 19 U/L (13-56); Albumin, Serum 2.4 g/dL (3.2-5.0); Alkaline Phosphatase 60 U/L (45-117); Anion Gap 10 (5-15); BUN 7 mg/dL (7-18); BUN/Creat Ratio 14.6 RATIO (10-20); CRP 5.62 mg/L (0.0-3.0); Calcium,Total 6.8 mg/dL (8.5-10.1); Chloride 111 mmol/L (98-107); Creatinine, Serum 0.48 mg/dL (0.55-1.02); EST Glomerular Filtration Rate 148 mL/min (>60); Est Glom Filt Rate - Afr Amer 179 mL/min (>60); Glucose 89 mg/dL (74-106); Potassium 3.3 mmol/L (3.5-5.1); Protein, Total 5.4 g/dL (6.4-8.2); Sodium Level 145 mmol/L (136-145); Vancomycin, Trough Level 10.5 ug/mL (5.0-15.0)
[2018-09-21 13:36] LABS: Erythrocyte Sedimentation Rate 63 mm/hr (0-20)
[2018-09-21 13:38] LABS: Hematocrit 34.2 % (37-47); Hemoglobin 10.2 g/dl (12.0-15.0); Mean Corp Hgb Conc 29.8 g/gl (32-36); Mean Corpuscular Hgb 26.1 pg (27.0-32.0); Mean Corpuscular Volume 87.5 fL (81-99); Mean Platelet Vol. 9.6 fl (6.2-12.0); Platelet Count 380 K/mm3 (150-450); RBC Distribution Width CV 15.8 % (11.6-14.6); RBC Distribution Width SD 50.6 fl (35.1-43.9); Red Blood Count 3.91 M/mm3 (4.2-5.4); Scan Indicated on CBC? Y/N NO; White Blood Count 6.5 K/mm3 (4.4-11.0)
[2018-09-21 13:45] LABS: ALB/GLOB Ratio 0.8 RATIO (0.9-2.4); AST(SGOT) 20 U/L (15-37); Alanine Aminotransfer ALT/SGPT 21 U/L (13-56); Albumin, Serum 3.1 g/dL (3.2-5.0); Alkaline Phosphatase 83 U/L (45-117); Anion Gap 10 (5-15); BUN 6 mg/dL (7-18); BUN/Creat Ratio 9.6 RATIO (10-20); CRP 7.63 mg/L (0.0-3.0); Calcium,Total 8.6 mg/dL (8.5-10.1); Chloride 103 mmol/L (98-107); Creatinine, Serum 0.63 mg/dL (0.55-1.02); EST Glomerular Filtration Rate 108 mL/min (>60); Est Glom Filt Rate - Afr Amer 131 mL/min (>60); Globulin 3.7 g/dL (2.2-4.2); Glucose 91 mg/dL (74-106); Potassium 4.3 mmol/L (3.5-5.1); Protein, Total 6.8 g/dL (6.4-8.2); Sodium Level 142 mmol/L (136-145); Vancomycin, Trough Level 8.8 ug/mL (5.0-15.0)
--- OUTSIDE RECORDS SUMMARY | 2018-12-17 00:49 | XMS RPT_ITS ---
:1970 Author Organization OHIP Support Name Relationship Address Phone CHAMPION, SANTHOSH Unavailable [address] + [place] [address] D Unavailable Unavailable Unavailable CHAMPION, SANTHOSH Unavailable [address] + [place] [address] D Unavailable Unavailable Unavailable CHAMPION, SANTHOSH Unavailable [address] + [place] [address] D Unavailable Unavailable Unavailable CHAMPION, SANTHOSH Unavailable [address] + [place] [address] D Unavailable Unavailable Unavailable CHAMPION, SANTHOSH Unavailable Unavailable + D Unavailable Unavailable Unavailable CHAMPION, SANTHOSH Unavailable . + [place] [address] D Unavailable Unavailable Unavailable CHAMPION, SANTHOSH Unavailable . + [place] [address] D Unavailable Unavailable Unavailable CHAMPION, SANTHOSH Unavailable . + [place] [address] D Unavailable Unavailable Unavailable CHAMPION, SANTHOSH Unavailable . + [place] [address] D Unavailable Unavailable Unavailable CHAMPION, SANTHOSH Unavailable . + [place] [address] D Unavailable Unavailable Unavailable CHAMPION, SANTHOSH Unavailable . + [place] [address] D Unavailable Unavailable Unavailable CHAMPION, SANTHOSH Unavailable . + [place] [address] D Unavailable Unavailable Unavailable CHAMPION, SANTHOSH Unavailable Unavailable + [place] [address] D Unavailable Unavailable Unavailable CHAMPION, SANTHOSH Unavailable Unavailable + [place] [address] D Unavailable Unavailable Unavailable CHAMPION, SANTHOSH Unavailable . + [place] [address] D Unavailable Unavailable Unavailable CHAMPION, SANTHOSH Unavailable . + [place] [address] D Unavailable Unavailable Unavailable CHAMPION, SANTHOSH Unavailable Unavailable + [place] [address] D Unavailable Unavailable Unavailable CHAMPION, SANTHOSH Unavailable Unavailable + [place] [address] UE Unavailable Unavailable Unavailable CHAMPION, SANTHOSH Unavailable Unavailable + [place] [address] UE Unavailable Unavailable Unavailable CHAMPION, SANTHOSH Unavailable Unavailable + [place] [address] UE Unavailable Unavailable Unavailable CHAMPION, SANTHOSH Unavailable Unavailable + [place] [address] UE Unavailable Unavailable Unavailable CHAMPION, SANTHOSH Unavailable Unavailable + [place] [address] UE Unavailable Unavailable Unavailable CHAMPION, SANTHOSH Unavailable . + [place] [address] UE Unavailable Unavailable Unavailable CHAMPION, SANTHOSH Unavailable . + [place] [address] UE Unavailable Unavailable Unavailable CHAMPION, SANTHOSH Unavailable . + [place] [address] UE Unavailable Unavailable Unavailable CHAMPION, SANTHOSH Unavailable . + [place] [address] UE Unavailable Unavailable Unavailable CHAMPION, SANTHOSH Unavailable . + [place] [address] UE Unavailable Unavailable Unavailable CHAMPION, SANTHOSH Unavailable . + [place] [address] UE Unavailable Unavailable Unavailable CHAMPION, SANTHOSH Unavailable . + [place] [address] UE Unavailable Unavailable Unavailable CHAMPION, SANTHOSH Unavailable . + [place] [address] UE Unavailable Unavailable Unavailable CHAMPION, SANTHOSH Unavailable . + [place] [address] UE Unavailable Unavailable Unavailable CHAMPION, SANTHOSH Unavailable Unavailable + [place] [address] UE Unavailable Unavailable Unavailable CHAMPION, SANTHOSH Unavailable . + [place] [address] UE Unavailable Unavailable Unavailable CHAMPION, SANTHOSH Unavailable . + [place] [address] UE Unavailable Unavailable Unavailable CHAMPION, SANTHOSH Unavailable . + [place] [address] UE Unavailable Unavailable Unavailable CHAMPION, SANTHOSH Unavailable . + [place] [address] UE Unavailable Unavailable Unavailable CHAMPION, SANTHOSH Unavailable Unavailable + UE Unavailable Unavailable Unavailable CHAMPION, SANTHOSH Unavailable Unavailable + UE Unavailable Unavailable Unavailable CHAMPION, SANTHOSH Unavailable . + [place] [address] UE Unavailable Unavailable Unavailable CHAMPION, SANTHOSH Unavailable Unavailable + UE Unavailable Unavailable Unavailable CHAMPION, SANTHOSH Unavailable Unavailable + UE Unavailable Unavailable Unavailable CHAMPION, SANTHOSH Unavailable Unavailable + UE Unavailable Unavailable Unavailable CHAMPION, SANTHOSH Unavailable . + ., [place] . UE Unavailable Unavailable Unavailable CHAMPION, SANTH[place]H Unavailable . + ., [place] . UE Unavailable Unavailable Unavailable CHAMPION, SANTHOSH Unavailable [address] [place] [address] DR + [place] [address] UE Unavailable Unavailable Unavailable CHAMPION, SANTHOSH Unavailable [address] [place] [address] DR + [place] [address] UE Unavailable Unavailable Unavailable CHAMPION, SANTHOSH Unavailable [address] [place] [address] DR + [place] [address] UE Unavailable Unavailable Unavailable CHAMPION, SANTHOSH Unavailable Unavailable + UE Unavailable Unavailable Unavailable CHAMPION, SANTHOSH Unavailable [address] [place] [address] DR + [place] [address] UE Unavailable Unavailable Unavailable CHAMPION, SANTHOSH Unavailable [address] [place] [address] DR + [place] [address] UE Unavailable Unavailable Unavailable CHAMPION, SANTHOSH Unavailable [address] [place] [address] DR [phone] [place] [address] UE Unavailable Unavailable Unavailable CHAMPION, SANTHOSH Unavailable [address] [place] [address] DR [phone] [place] [address] UE Unavailable Unavailable Unavailable CHAMPION, SANTHOSH Unavailable [address] [place] [address] DR [phone] [place] [address] UE Unavailable Unavailable Unavailable CHAMPION, SANTHOSH Unavailable [facility] [address] [phone] [place] [address] UE Unavailable Unavailable Unavailable CHAMPION, SANTHOSH Unavailable [facility] [address] [phone] [place] [address] UE Unavailable Unavailable Unavailable CHAMPION, SANTHOSH Unavailable [facility] [address] [phone] [place] [address] UE Unavailable Unavailable Unavailable CHAMPION, SANTHOSH Unavailable [address] [place] [address] DR [phone] [place] [address] UE Unavailable Unavailable Unavailable CHAMPION, SANTHOSH Unavailable [address] [place] [address] DR [phone] [place] [address] UE Unavailable Unavailable Unavailable CHAMPION, SANTHOSH Unavailable [address] [place] [address] DR [phone] [place] [address] UE Unavailable Unavailable Unavailable CHAMPION, SANTHOSH Unavailable [address] [place] [address] DR [phone] [place] [address] UE Unavailable Unavailable Unavailable CHAMPION, SANTHOSH Unavailable [facility] [address] [phone] [place] [address] UE Unavailable Unavailable Unavailable CHAMPION, SANTHOSH Unavailable [facility] [address] [phone] [place] [address] UE Unavailable Unavailable Unavailable CHAMPION, SANTHOSH Unavailable [address] [place] [address] DR [phone] [place] [address] UE Unavailable Unavailable Unavailable CHAMPION, SANTHOSH Unavailable [address] [place] [address] DR [phone] [place] [address] UE Unavailable Unavailable Unavailable CHAMPION, SANTHOSH Unavailable [address] [place] [address] DR [phone] [place] [address] UE Unavailable Unavailable Unavailable CHAMPION, SANTHOSH Unavailable [facility] [address] [phone] [place] [address] UE Unavailable Unavailable Unavailable CHAMPION, SANTHOSH Unavailable [address] [place] [address] DR [phone] [place] [address] UE Unavailable Unavailable Unavailable CHAMPION, SANTHOSH Unavailable [address] [place] [address] DR [phone] [place] [address] HOSPICE Unavailable [address] + [place] [address] UE Unavailable Unavailable Unavailable SANTHOSH OWNES Unavailable [address] [place] [address] DR [phone] [place] [address] HOSPICE Unavailable [address] + [place] [address] UE Unavailable Unavailable Unavailable SANTHOSH OWENS Unavailable [address] [place] [address] DR [phone] [place] [address] UE Unavailable Unavailable Unavailable SANTHOSH OWENS Unavailable [address] [place] [address] DR [phone] [place] [address] H[address]ICE Unavailable [address] + [place] [address] KYLEIGH STORY Unavailable [address] + [place] [address] MEGA OWENSARA Unavailable [address] [place] [address] DR + [place] [address] HOSPICE Unavailable [address] + [place] [address] KYLEIGH STORY Unavailable [address] + [place] [address] MEGA OWENSARA Unavailable [address] [place] [address] DR + [place] [address] HOSPICE Unavailable [address] + [place] [address] KYLEIGH STORY Unavailable [address] + [place] [address] ROMAN SANTHOSH Unavailable [address] [place] [address] DR + [place] [address] HOSPICE Unavailable [address] + [place] [address] KYLEIGH STORY Unavailable [address] + [place] [address] Care Team Providers Name Role Phone SIMÓN RHONA L (LINER MAN) Attending Unavailable Sean Stevenson Admitting Unavailable Sean Stevenson Attending Unavailable Sean Stevenson Referring Unavailable Eduardo Peters Primary Care Unavailable Sean Stevenson Consulting Unavailable Sean Stevenson Admitting Unavailable Slaby, Sean Attending Unavailable Peters, Eduardo Primary Care Unavailable Slaby, Sean Consulting Unavailable Kasia, Jonn Referring Unavailable Slaby, Sean Attending Unavailable Epters, Eduardo Referring Unavailable Slaby, Sean Admitting Unavailable [...] Care Unavailable Slaby, Sean Attending Unavailable Slaby, Sena Referring Unavailable Naresh, Huma E Attending Unavailable Peters, Eduardo Referring Unavailable AbdiTiff Attending Unavailable Slaby, Sean Attending Unavailable Peters, Eduardo Referring Unavailable Petesr, Eduardo Primary Care Unavailable Slaby, Sean Attending Unavailable Slaby, Sean Referring Unavailable Peters, Eduardo Primary Care Unavailable Slaby, Sean Admitting Unavailable Slaby, Sean Attending Unavailable Slaby, Sean Referring Unavailable Peters, Eduardo Primary Care Unavailable Slaby, Sean Consulting Unavailable Slaby, Sean Attending Unavailable Slaby, Sean Referring Unavailable Peters, Eduardo Primary Care Unavailable Slaby, Sean Attending Unavailable Peetrs, Eduardo Referring Unavailable Peters, Eduardo Primary Care [...] Care Unavailable Peters, Eduardo Primary Care Unavailable Brian Baxter Attending Unavailable Slaby, Sean Attending Unavailable Peters, [...] Unavailable Slaby, Sean Admitting Unavailable KotsoniAlexandre patel F Attending Unavailable Slaby, Sean Referring Unavailable Peters, Eduardo Primary Care Unavailable Gabriella, Matty Consulting Unavailable Kotsonis, Alexandre F Consulting Unavailable Slaby, Sean Consulting Unavailable Slaby, Sean Admitting Unavailable Kotsonis Alexandre F Attending Unavailable Slaby, Sean Referring Unavailable Peters, Eduardo Primary Care Unavailable Gabriella, Matty Consulting Unavailable Kotsonis, Alexandre F Consulting Unavailable Slaby, Sean Consulting Unavailable Slaby, Sean Admitting Unavailable Slaby, Sean Attending Unavailable Slaby, Sean Referring Unavailable Peters, Eduardo Primary Care Unavailable Gabriella, Matty Consulting Unavailable Kotsonis, Alexandre F Consulting Unavailable Slaby, Sean Consulting Unavailable Slaby, Sean Referring Unavailable Peters, Eduardo Primary Care Unavailable Slaby, Sean Attending Unavailable Slaby, Sean Attending Unavailable Peters, Eduardo Referring Unavailable Peters, Eduardo Primary Care Unavailable Slaby, Sean Attending Unavailable Peters, Eduardo Primary Care Unavailable Slaby, Sean Attending Unavailable Slaby, Sean Referring Unavailable Peters, Eduardo Primary Care Unavailable Slaby, Sean Attending Unavailable Peters, Eduardo Primary Care Unavailable Naresh, [...] Referring Unavailable Peters, Eduardo Primary Care Unavailable Anresh, Huma E Consulting Unavailable Slaby, Sean Consulting [...] Unknown T81.40XA - Infection Sean Stevenson Active [place] following a Community procedure, Hospital unspecified, initial Repository encounter / T81.40XA(ICD-10) 10/01/2018 Unknown G89.18 - Other acute Naresh, Active [place] postprocedural pain [facility] / G89.18(ICD-10) Hospital Repository 10/01/2018 Unknown N61.1 - Abscess of Naresh, Active [facility] the breast and [facility] nipple / Hospital N61.1(ICD-10) Repository 10/01/2018 Unknown 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, 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 / L98.492(ICD-10) 10/01/2018 Unknown 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, 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 / Hospital Z90.11(ICD-10) Repository 10/01/2018 Unknown 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, 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 [facility] / N65.0(ICD-10) Hospital Repository 10/01/2018 Unknown N65.1 - Naersh, Active [facility] Disproportion of [facility] Community reconstructed breast Hospital / N65.1(ICD-10) Repository 10/01/2018 Unknown Z98.86 - Personal Naresh, Active [facility] history of breast [facility] implant removal / Hospital Z98.86(ICD-10) Repository 10/01/2018 Unknown T85.79XS - Infection Naresh, Active [facility] and inflammatory [facility] reaction due to Hospital other internal Repository prosthetic devices, implants and grafts, sequela / T85.79XS(ICD-10) 09/28/2018 Unknown B95.62 - Methicillin Ramaarmando Sean Burton [facility] resistant Community Staphylococcus Hospital aureus infection as Repository the cause of diseases classified elsewhere / B95.62(ICD-10) 09/17/2018 Unknown L76.82 - Other RamaarmandoSean Active [facility] postprocedural Community complications of Hospital skin and Repository subcutaneous tissue / L76.82(ICD-10) 07/12/2018 Unknown Z86.14 - 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 / Z86.14(ICD-10) 07/12/2018 Unknown T85.79XA - Infection RamaarmandoSean [facility] and inflammatory Community reaction due to Hospital other internal Repository prosthetic devices, implants and grafts, initial encounter / T85.79XA(ICD-10) 06/30/2018 Unknown T81.4XXA - Infection Ramaarmando Sean Active [place] following a Community procedure, initial Hospital encounter / Repository T81.4XXA(ICD-10) 06/30/2018 Unknown Z45.2 - Encounter Sean Stevenson [place] for adjustment and Community management of Hospital vascular access Repository device / Z45.2(ICD-10) 06/30/2018 Unknown Z51.81 - Encounter Sean Stevenson [facility] for therapeutic drug Community level monitoring / Hospital Z51.81(ICD-10) Repository PROCEDURES PROCEDURES No Procedure Records FoundRESULTS RESULTS ERYTHROCYTE SED RATE Collected: 10/20/2018 Status: F Source: [place] 11:00 AM [facility] REPOSITORY TYPE CODE TESTS RESULT OUT OF RANGE REFERENCE UNITS LAB L102.0000 0-20 mm/hr High SED RATE 69 Performed By: #### L101.9900, L100.0500 #### [place] [facility] [address] [place], [place], [address] CBC-COMPLETE BLOOD CNT Collected: 10/20/2018 Status: F Source: [place] NO DIFF 11:00 AM [facility] REPOSITORY TYPE CODE TESTS RESULT [...] 10.1 Performed By: #### L101.9900, L100.0500 #### [facility] [address] [place], [place], [address] COMPREHENSIVE METABOLIC Collected: 10/20/2018 Status: F Source: [place] PROFIL 11:00 AM [facility] REPOSITORY TYPE CODE TESTS RESULT [...] 5 Performed By: #### L500.4050, L501.6710 #### [facility] [address] [place], [place], [address] CRP Collected: 10/20/2018 Status: F Source: [place] 11:00 AM [facility] REPOSITORY TYPE CODE TESTS RESULT OUT OF RANGE REFERENCE UNITS LAB L501.6710 0.0-3.0 mg/L High 4.80 C-REACTIVE PROT Result Comment: C-Reactive Protein (CRP) provides useful information for the diagnosis, therapy and monitoring of inflammatory processes and associated diseases. For the evaluation of Relative Risk for Cardiovascular Disease, a High Sensitivity CRP (HSCRP) should be ordered. Performed By: #### L500.4050, L501.6710 #### [facility] [address] [place], [address] VANCOMYCIN, TROUGH Collected: 10/20/2018 Status: F Source: [place] LEVEL 11:00 AM [facility] REPOSITORY Order Comment: Time Medication is to [...] (Ventilator/Healtcare Associated) -Sepsis PLEASE CONTACT PHARMACY SERVICES (#[id number]) FOR INTERPRETATION OF RESULTS. Performed By: #### L501.8820 #### [facility] [address] [place], [address] PLASTIC SURGERY Observed: 10/20/2018 Status: F Source: [place] VISIT REPORT 8:58 AM [facility] REPOSITORY [facility] [address] [place] [address] OFFICE VISIT Date of Service: 10/14/18 MR#: [id number] Acct: [id number] Name: DARWIN CARRASQUILLOSandra Hyde Rep #: [id number] : 1970 Provider: MAYI Infante Age/Sex: 48/F Location: [facility] Status: Signed Intake Vital Signs10/14/18 Blood Pressure 125/79 H H 10/14/18 Blood Pressure Location Rt brachial 10/14/18 Blood Pressure Position Sitting 10/14/18 Respiratory Rate 18 10/14/18 Pulse Rate 108 H Intake Visit Reasons: post op surgery 09/08/18 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 UNK List Antibiotics to be Started? UNK Gram Stain Gram Stain No organisms seen 1+ Red Blood Cells Body Fluid Cult Culture exhibits no growth. Cult, Anaerobic No growth in 5 days. Performed By: #### M100.1300 #### [facility] [address] [place], [address] CYST PUNCTURE Observed: 10/13/2018 Status: F Source: [place] 8:21 AM [facility] REPOSITORY [facility] Imaging Services [address] [place] [address] Cyst Puncture MR#: [id number] Acct: [id number] Name: ROBLES CARRASQUILLO Rep #: [id number] : 1970 F 48 From: Devonte Bowers MD PCP: Eduardo Rubio DO Status: REG CLI Study: Cyst Puncture Date of Exam: 10/13/18 Exam# [id number] Ordering Dr: Sean Stevenson MD PROCEDURE: Ultrasound [...] suggestive of seroma. Following this, a 5 [place] catheter was placed into the collection. 190 mL of mee-colored fluid was aspirated. FINDINGS: Successful drainage of the seroma. US/Cyst Puncture IMPRESSION: Successful drainage of the seroma. The patient tolerated the procedure well. Electronically Signed: Devonte Bowers MD at 10:06 EST Tel [phone], Service support , CC: Sean Stevenson MD; Eduardo Rubio DO Tree Thinner: Signed CBC-COMPLETE BLOOD CNT Collected: 10/12/2018 Status: F Source: [place] NO DIFF 9:15 AM [facility] REPOSITORY TYPE CODE TESTS RESULT [...] 10.1 Performed By: #### L100.0500, L101.9900 #### [facility] [address] [place], [address] ERYTHROCYTE SED RATE Collected: 10/12/2018 Status: F Source: [place] 9:15 AM [facility] REPOSITORY TYPE CODE TESTS RESULT OUT OF RANGE REFERENCE UNITS LAB L102.0000 0-20 mm/hr High SED RATE 73 Performed By: #### L100.0500, L101.9900 #### [facility] [address] [place], [address] VANCOMYCIN, TROUGH Collected: 10/12/2018 Status: F Source: [facility] 9:15 AM [facility] REPOSITORY Order Comment: Time Medication is to [...] (Ventilator/Healtcare Associated) -Sepsis PLEASE CONTACT PHARMACY SERVICES (#[id number]) FOR INTERPRETATION OF RESULTS. Performed By: #### L501.8820 #### [facility] [address] [place], [address] COMPREHENSIVE METABOLIC Collected: 10/12/2018 Status: F Source: [place] [facility] 9:15 AM [facility] REPOSITORY TYPE CODE TESTS RESULT [...] 9 Performed By: #### L500.4050, L501.6710 #### [facility] [address] [place], [address] CRP Collected: 10/12/2018 Status: F Source: [place] 9:15 AM [facility] REPOSITORY TYPE CODE TESTS RESULT OUT OF RANGE REFERENCE UNITS LAB L501.6710 0.0-3.0 mg/L High 4.35 C-REACTIVE PROT Result Comment: C-Reactive Protein (CRP) provides useful information for the diagnosis, therapy and monitoring of inflammatory processes and associated diseases. For the evaluation of Relative Risk for Cardiovascular Disease, a High Sensitivity CRP (HSCRP) should be ordered. Performed By: #### L500.4050, L501.6710 #### [facility] [address], [address] PLASTIC SURGERY Observed: 10/10/2018 Status: F Source: [place] VISIT REPORT 7:41 PM [facility] REPOSITORY [facility] [address] [place] [address] OFFICE VISIT Date of Service: 10/07/18 MR#: [id number] Acct: [id number] Name: ROBLES CARRASQUILLO Rep #: [id number] : 1970 Provider: Sean Stevenson MD Age/Sex: 48/F Location: [facility] Status: Signed Intake Vital Signs10/07/18 Body Mass Index (BMI) 45.3 10/07/18 Blood Pressure 133/82 H H 10/07/18 Blood Pressure Location Rt brachial 10/07/18 Blood Pressure Position Sitting Intake Visit Reasons: post op surgery 09/08/18 Cylinder Machine Operator Required: No Accompanied by: None Is patient [...] COMPREHENSIVE METABOLIC Collected: 10/05/2018 Status: F Source: [place] SWETA 10:00 AM [facility] REPOSITORY TYPE CODE TESTS RESULT [...] 8 Performed By: #### L500.4050, L501.6710 #### [facility] [address] [place], [place], [address] CRP Collected: 10/05/2018 Status: F Source: [place] 10:00 AM [facility] REPOSITORY TYPE CODE TESTS RESULT OUT OF RANGE REFERENCE UNITS LAB L501.6710 0.0-3.0 mg/L High 3.71 C-REACTIVE PROT Result Comment: C-Reactive Protein (CRP) provides useful information for the diagnosis, therapy and monitoring of inflammatory processes and associated diseases. For the evaluation of Relative Risk for Cardiovascular Disease, a High Sensitivity CRP (HSCRP) should be ordered. Performed By: #### L500.4050, L501.6710 #### [facility] [address] [place], [address] VANCOMYCIN, TROUGH Collected: 10/05/2018 Status: F Source: [place] LEVEL 10:00 AM [facility] REPOSITORY Order Comment: Time Medication is to [...] (Ventilator/Healtcare Associated) -Sepsis PLEASE CONTACT PHARMACY SERVICES (#[id number]) FOR INTERPRETATION OF RESULTS. Performed By: #### L501.8820 #### [facility] [address] [place], [address] ERYTHROCYTE SED RATE Collected: 10/05/2018 Status: F Source: [place] 10:00 AM [facility] REPOSITORY TYPE CODE TESTS RESULT OUT OF RANGE REFERENCE UNITS LAB L102.0000 0-20 mm/hr High SED RATE 52 Performed By: #### L101.9900, L100.0500 #### [facility] [address] [facility] [place], [address] CBC-COMPLETE BLOOD CNT Collected: 10/05/2018 Status: F Source: [place] NO DIFF 10:00 AM [facility] REPOSITORY TYPE CODE TESTS RESULT [...] 9.9 Performed By: #### L101.9900, L100.0500 #### [facility] [address] [place], [address] PLASTIC SURGERY Observed: 10/02/2018 Status: F Source: [place] VISIT REPORT 11:40 AM [facility] REPOSITORY [facility] [address] [place] [address] OFFICE VISIT Date of Service: 10/01/18 MR#: [id number] Acct: [id number] Name: ROBLES CARRASQUILLO Rep #: [id number] : 1970 Provider: MAYI Infante Age/Sex: 48/F Location: [facility] Status: Signed Intake Vital Signs10/01/18 Body Mass [...] PLASTIC SURGERY Observed: 09/30/2018 Status: F Source: [facility] VISIT REPORT 9:15 AM [facility] REPOSITORY [facility] [address] [place] [address] OFFICE VISIT Date of Service: 09/25/18 MR#: [id number] Acct: [id number] Name: ROBLES CARRASQUILLO Mary Ellen Rep #: [id number] : 1970 Provider: MAYI Infante Age/Sex: 48/F Location: [facility] Status: Signed Intake Vital Signs09/25/18 Body Mass [...] <Electronically signed by Huma KLINEC> Date Huma Infante NP-C 09/30/18 0045<Electronically signed by Sean Stevenson MD> Cosigner Signature: Date (if applicable) Sean Stevenson MD CC: CBC-COMPLETE BLOOD CNT Collected: 09/28/2018 Status: F Source: ROHINI NO DIFF 9:30 AM [facility] REPOSITORY TYPE CODE TESTS RESULT [...] 9.4 Performed By: #### L100.0500, L101.9900 #### [facility] [address] [place], [place], [address] ERYTHROCYTE SED RATE Collected: 09/28/2018 Status: F Source: ROHINI 9:30 AM [facility] REPOSITORY TYPE CODE TESTS RESULT OUT OF RANGE REFERENCE UNITS LAB L102.0000 0-20 mm/hr High SED RATE 44 Performed By: #### L100.0500, L101.9900 #### [facility] [address] [place], [place], [address] VANCOMYCIN, TROUGH Collected: 09/28/2018 Status: F Source: ROHINI LEVEL 9:30 AM [facility] REPOSITORY Order Comment: Time Medication is to [...] (Ventilator/Healtcare Associated) -Sepsis PLEASE CONTACT PHARMACY SERVICES (#[id number]) FOR INTERPRETATION OF RESULTS. Performed By: #### L501.8820 #### [facility] [address] [place], [address] COMPREHENSIVE METABOLIC Collected: 09/28/2018 Status: F Source: [facility] 9:30 AM [facility] REPOSITORY TYPE CODE TESTS RESULT [...] 9 Performed By: #### L500.4050, L501.6710 #### [facility] [address] [place], [address] CRP Collected: 09/28/2018 Status: F Source: [place] 9:30 AM [facility] REPOSITORY TYPE CODE TESTS RESULT OUT OF RANGE REFERENCE UNITS LAB L501.6710 0.0-3.0 mg/L High 3.79 C-REACTIVE PROT Result Comment: C-Reactive Protein (CRP) provides useful information for the diagnosis, therapy and monitoring of inflammatory processes and associated diseases. For the evaluation of Relative Risk for Cardiovascular Disease, a High Sensitivity CRP (HSCRP) should be ordered. Performed By: #### L500.4050, L501.6710 #### [facility] [address] [place], [address] PLASTIC SURGERY Observed: 09/22/2018 Status: F Source: [place] VISIT REPORT 7:58 PM [facility] REPOSITORY [facility] [address] [place] [address] OFFICE VISIT Date of Service: 09/17/18 MR#: [id number] Acct: [id number] Name: ROBLES CARRASQUILLO Rep #: [id number] : 1970 Provider: Sean Stevenson MD Age/Sex: 48/F Location: [facility] Status: Signed Intake Vital Signs09/17/18 Body Mass Index (BMI) 45.3 09/17/18 Blood Pressure 146/86 H 09/17/18 Blood Pressure Location Rt brachial 09/17/18 Blood Pressure Position Sitting 09/17/18 Respiratory Rate 18 Intake Visit Reasons: post op surgery 09/08/18 Cylinder Machine Operator Required: No Accompanied by: None Is patient [...] Stevenson MD 09/22/18 1958<Electronically signed by Huma KLINEC> Cosigner Signature: Date (if applicable) Huma Infante CC: ERYTHROCYTE SED RATE Collected: 09/21/2018 Status: F Source: R[facility]I 10:15 AM [facility] REPOSITORY TYPE CODE TESTS RESULT OUT OF RANGE REFERENCE UNITS LAB L102.0000 0-20 mm/hr High SED RATE 63 Performed By: #### L101.9900, L100.0500 #### [facility] [address] [place] [address], [address] CBC-COMPLETE BLOOD CNT Collected: 09/21/2018 Status: F Source: ROH[place]I NO DIFF 10:15 AM [facility] REPOSITORY TYPE CODE TESTS RESULT [...] 9.6 Performed By: #### L101.9900, L100.0500 #### [facility] [address] [place], [address] COMPREHENSIVE METABOLIC Collected: 09/21/2018 Status: F Source: [facility] 10:15 AM [facility] REPOSITORY TYPE CODE TESTS RESULT [...] 10 Performed By: #### L500.4050, L501.6710 #### [facility] [address] [place], [address] CRP Collected: 09/21/2018 Status: F Source: R[place]I 10:15 AM [facility] REPOSITORY TYPE CODE TESTS RESULT OUT OF RANGE REFERENCE UNITS LAB L501.6710 0.0-3.0 mg/L High 7.63 C-REACTIVE PROT Result Comment: C-Reactive Protein (CRP) provides useful information for the diagnosis, therapy and monitoring of inflammatory processes and associated diseases. For the evaluation of Relative Risk for Cardiovascular Disease, a High Sensitivity CRP (HSCRP) should be ordered. Performed By: #### L500.4050, L501.6710 #### [facility] [address] [place], [place], [address] VANCOMYCIN, TROUGH Collected: 09/21/2018 Status: F Source: ROHINI LEVEL 10:15 AM [facility] REPOSITORY Order Comment: Time Medication is to [...] (Ventilator/Healtcare Associated) -Sepsis PLEASE CONTACT PHARMACY SERVICES (#[id number]) FOR INTERPRETATION OF RESULTS. Performed By: #### L501.8820 #### [facility] [address] [place], [address] OPERATIVE REPORT Observed: 09/14/2018 Status: F Source: [facility] 5[facility]27 PM [facility] Medical Records Department [address] [place] [address] Operative Report 09/08/182056 MR#: [id number] Acct: [id number] Name: ROBLES CARRASQUILLO Rep #: [id number] : 1970 48 From: Sean Stevenson MD PCP: Eduardo Rubio, DO Status: DIS IN Y Location: [place] [id number] Report of Operation Date of Procedure: 09/08/18 [...] reconstruction with placement of submuscular saline tissue fish roe technician (800 ml) and placement DermACELL decellularized dermis graft (160 cm2). She tolerated the tissue expansion. On 05/05/18, she then underwent the next stage in the breast reconstruction process which was delayed right breast reconstruction with removal of saline tissue fish roe technician with replacement cohesive gel implant (800 ml) [...] (I used 2 vials). Reference Number - [id number]. Lot Number - [id number]. Expiration - April 25, 2023. felt cutter: Bubba Ramos. Type of Anesthesia:: General Specimen's [...] Yes Code Visit Surgery Charges CPT - 89541 ICD-10 - L98.492, N61.1, N65.1, N65.0, Z86.14, Z90.11, Z40.01, Z98.86, T85.79xS, Z87.891 83687 L98.492, N61.1, N65.1, N65.0, Z86.14, Z90.11, Z40.01, Z98.86, T85.79xS, Z87.891 09/14/18 1727 <Electronically signed by Sean Stevenson MD> Date Sean Stevenson MD CC: Jonn Pedroza MD; Sean Stevenson MD; Eduardo Rubio DO; [facility] Signed CBC-COMPLETE BLOOD CNT Collected: 09/14/2018 Status: F Source: ROHINI NO DIFF 9:30 AM [facility] REPOSITORY TYPE CODE TESTS RESULT [...] 10.0 Performed By: #### L100.0500, L101.9900 #### [facility] [address] [place], [address] ERYTHROCYTE SED RATE Collected: 09/14/2018 Status: F Source: ROH[place]I 9:30 AM [facility] REPOSITORY TYPE CODE TESTS RESULT OUT OF RANGE REFERENCE UNITS LAB L102.0000 0-20 mm/hr High SED RATE 95 Performed By: #### L100.0500, L101.9900 #### [facility] [address] [place], [address] COMPREHENSIVE METABOLIC Collected: 09/14/2018 Status: F Source: [facility] 9:30 AM [facility] REPOSITORY TYPE CODE TESTS RESULT [...] 10 Performed By: #### L500.4050, L501.6710 #### [facility] [address] [place], [address] CRP Collected: 09/14/2018 Status: F Source: [place] 9:30 AM [facility] REPOSITORY TYPE CODE TESTS RESULT OUT OF RANGE REFERENCE UNITS LAB L501.6710 0.0-3.0 mg/L High 5.62 C-REACTIVE PROT Result Comment: C-Reactive Protein (CRP) provides useful information for the diagnosis, therapy and monitoring of inflammatory processes and associated diseases. For the evaluation of Relative Risk for Cardiovascular Disease, a High Sensitivity CRP (HSCRP) should be ordered. Performed By: #### L500.4050, L501.6710 #### [facility] [address] [place], [place], [address] VANCOMYCIN, TROUGH Collected: 09/14/2018 Status: F Source: [place] LEVEL 9:30 AM [facility] REPOSITORY Order Comment: Time Medication is to [...] (Ventilator/Healtcare Associated) -Sepsis PLEASE CONTACT PHARMACY SERVICES (#[id number]) FOR INTERPRETATION OF RESULTS. Performed By: #### L501.8820 #### [facility] [address] [place], [address] DISCHARGE INSTRUCTION Observed: 09/10/2018 Status: F Source: ROH[place]I 12:15 PM [facility] REPOSITORY [facility] Medical Records Department [address] [place] [address] Instructions for Home/Discharge Instructions 09/10/18 1212 MR#: [id number] Acct: [id number] Name: ROBLES CARRASQUILLO Rep #: [id number] : 1970 48 From: Sean Stevenson MD [...] appointment, if applicable. Please Follow Up With: eSan Stevenson MD When: one week. call [phone] for appt. Proposed Discharge Date: 09/10/18 09/10/18 1215 <Electronically signed by Sean Stevenson MD> Date Sean Stevenson MD CC: Jonn Pedroza MD; Eduardo Rubio DO; [facility] VANCOMYCIN, TROUGH Collected: 09/10/2018 Status: F Source: ROHINI LEVEL 9:20 AM [facility] REPOSITORY Order Comment: Comments: Please draw 09/10 [...] (Ventilator/Healtcare Associated) -Sepsis PLEASE CONTACT PHARMACY SERVICES (#[id number]) FOR INTERPRETATION OF RESULTS. Performed By: #### L501.8820 #### [facility] [address] [place], [address] CBC-COMPLETE BLOOD CNT Collected: 09/10/2018 Status: F Source: ROH[place]I NO DIFF 5:37 AM [facility] REPOSITORY TYPE CODE TESTS RESULT [...] MPV 9.6 Performed By: #### L100.0500 #### [facility] [address] [place], [address] COMPREHENSIVE METABOLIC Collected: 09/10/2018 Status: F Source: ROHINI SOL 5:37 AM [facility] REPOSITORY TYPE CODE TESTS RESULT [...] Normal 6 Performed By: #### L500.4050 #### [facility] [address] [place], [address] HISTORY AND PHYSICAL Observed: 09/10/2018 Status: F Source: [place] EXAM 12:08 AM [facility] REPOSITORY [facility] Medical Records Department [address] [place] [place] [address] History and Physical 09/07/18 2359 MR#: [id number] Acct: [id number] Name: ROBLES CARRASQUILLO Rep #: [id number] : 1970 48 From: Sean Stevenson MD PCP: Eduardo Rubio DO Status: ADM IN Y Location: [facility] [id number] History and Physical Date of Admission: 09/08/18 [...] reconstruction with placement of submuscular saline tissue fish roe technician (800 ml) and placement DermACELL decellularized dermis graft (160 cm2). She tolerated the tissue expansion. On 05/05/18, she then underwent the next stage in the breast reconstruction process which was delayed right breast reconstruction with removal of saline tissue fish roe technician with replacement cohesive gel implant (800 ml) [...] Gastric bypass due to severe obesity 04/10/10 [place] 158lbs loss. Incisional hernia repair 07/03/10 panniculectomy [...] reconstruction with placement of submuscular saline tissue fish roe technician (800 ml) and placement DermACELL decellularized dermis graft (160 cm2) - 12/16/17 Delayed right breast reconstruction with removal of saline tissue fish roe technician with replacement cohesive gel implant (800 ml) [...] SOCIAL HISTORY: Patient was smoking up to /2-1ppd x 20 years. She has recently quit. [...] wound closure. removal of the saline tissue fish roe technician with replacement cohesive gel implant. Tissue that [...] F Source: ROHINI NO DIFF 5:16 AM [facility] REPOSITORY TYPE CODE TESTS RESULT [...] MPV 9.9 Performed By: #### L100.0500 #### [facility] [address] [place], [place], [address] BASIC METABOLIC Collected: 09/09/2018 Status: F Source: ROHINI PROFILE (BMP) 5:16 AM [facility] REPOSITORY TYPE CODE TESTS RESULT [...] 9 Performed By: #### L500.2500, L506.0500 #### [facility] [address] [facility] [place], [address] PREALBUMIN Collected: 09/09/2018 Status: F Source: ROHINI 5:16 AM [facility] REPOSITORY TYPE CODE TESTS RESULT OUT OF RANGE REFERENCE UNITS LAB L506.0500 20.0-40.0 mg/dL Normal PREALBUMIN 25.1 Performed By: #### L500.2500, L506.0500 #### [facility] [address] [place], [address] BASIC METABOLIC Collected: 09/08/2018 Status: F Source: ROHINI PROFILE (BMP) 8:57 PM [facility] REPOSITORY Order Comment: Comments: NEED SCR FOR [...] GAP 10 Performed By: #### L500.2500 #### [facility] [address] [place], [address] Observed: 09/08/2018 Status: F Source: NILO SEGUNDO W/ 5:45 PM [facility] [id number] REPOSITORY Comments: Nonhealing Right Breast Ulcer Soft Tissue Is this test to exclude patient from TB Isolation? N Cu,Xtthls2107 TESTING PERFORMED AT [facility]. ORIGINAL REPORT ON FILE IN LAB CONTAINS ADDITIONAL TEST SITE INFORMATION. CUF No yeast or mold isolated after [address] TESTING PERFORMED AT [facility]. ORIGINAL REPORT ON FILE IN LAB CONTAINS ADDITIONAL TEST SITE INFORMATION. Fungus Stain No yeast or mold observed. Performed By: #### M100.1500, M600.1900 #### [facility] [address], [address] MRSA WOUND DNA BY Collected: 09/08/2018 Status: F Source: ROHINI PCR 5:28 PM [facility] REPOSITORY Order Comment: Comments: Nonhealing Right Breast Ulcer Specimen Source? ULCER TYPE CODE TESTS RESULT OUT OF RANGE REFERENCE UNITS LAB L8200.1100 Negative Normal MRSA Negative RESULT LAB L8200.1150 Negative Normal SA RESULT NEGATIVE Performed By: #### L8200.1075 #### [facility] [address] [place], [address] Observed: 09/08/2018 Status: F Source: ORHINI CULTURE, DEEP WOUND 5:26 PM [facility] REPOSITORY Order Date: 04/30/17 Comments: Nonhealing Right Breast Ulcer Soft Tissue Gram Stain Gram Stain 3+ Red Blood Cells No organisms seen Wound Culture No growth aerobically. Cult, Anaerobic No anaerobic bacteria isolated. Performed By: #### M100.1500, M600.1900 #### [facility] [address] [place], [address] ULCER Observed: 09/08/2018 Status: F Source: ROHINI 2:40 PM [facility] REPOSITORY Patient: ROBLES CARRASQUILLO : 1970 (48/F) Acct Num: [id number] Phys: Sean Stevenson MD Unit Num: [id number] Loc: MS3 TG825-5 Specimen: [id number] Received: 09/09/181101 Spec Type: ULCER TISSUES 1 [...] of ulceration. No mass lesion is identified. Asset Accountant sections are submitted in three cassettes. / SJ: latha 09/09/18 TC:2 CPT: 62769 HEADER OPERATION: Right breast ulcer excisional debridement, [...] inflammation and fibrosis. SJ:latha 09/10/18 Signed Andres Thomas 09/10/18 <signature on file> Performed By: #### PUL #### [facility] [address] [place], [place], [address] THYROID STIM HORMONE Collected: 08/28/2018 Status: F Source: ROHINI (TSH) 11:57 AM [facility] REPOSITORY TYPE CODE TESTS RESULT OUT OF RANGE REFERENCE UNITS LAB L501.9520 0.358-3.74 uIU/mL Normal TSH 1.72 Performed By: #### L501.9520, L506.0400 #### [facility] [address] [place], [address] T4 FREE DIRECT Collected: 08/28/2018 Status: F Source: ROHINI 11:57 AM [facility] REPOSITORY TYPE CODE TESTS RESULT OUT OF RANGE REFERENCE UNITS LAB L506.0400 0.76-1.46 ng/dL Normal T4 FREE 1.16 DIRECT Performed By: #### L501.9520, L506.0400 #### [facility] [address] [place], [address] Observed: 08/17/2018 Status: F Source: FREEMAN CULTURE, WOUND 8:55 AM [facility] REPOSITORY Gram Stain Gram Stain 4+ Red Blood Cells Rare White Blood Cells No organisms seen Wound Culture Possible skin contamination, further Identification and sensitivity will be performed only by physician's request. ORGANISM 1: Gram positive igor Amount Growth 3+ ORGANISM 2: Coag Negative Staph Amount Growth Rare Performed By: #### M100.1400 #### [facility] [address] [place], [address] PLASTIC SURGERY Observed: 07/04/2018 Status: F Source: [place] VISIT REPORT 11:36 PM [facility] REPOSITORY [facility] [address] [place] [address] OFFICE VISIT Date of Service: 07/01/18 MR#: [id number] Acct: [id number] Name: ROBLES CARRASQUILLO Rep #: [id number] : 1970 Provider: Sean Stevenson MD Age/Sex: 48/F Location: [facility] Status: Signed Intake Vital Signs07/01/18 Blood Pressure 125/83 H H 07/01/18 Blood Pressure Location Rt brachial 07/01/18 Blood Pressure Position Sitting 07/01/18 Respiratory Rate 18 07/01/18 Pulse Rate 107 H Intake Visit Reasons: postop surgery 05/05/18 and 05/19/18 Cylinder Machine Operator Required: No Accompanied by: None Is patient [...] breast reconstruction with removal of saline tissue fish roe technician with replacement cohesive gel implant (800 ml) [...] Breast removal, prophylactic Z40.01 Former smoker Z87.891 10 2336 <Electronically signed by Sean Stevenson MD> Date Sean Stevenson MD Cosigner Signature: Date (if applicable) CC: ERYTHROCYTE SED RATE Collected: 06/29/2018 Status: F Source: FREEMAN 10:45 AM [facility] REPOSITORY TYPE CODE TESTS RESULT OUT OF RANGE REFERENCE UNITS LAB L102.0000 0-20 mm/hr High SED RATE 72 Performed By: #### L101.9900, L100.0500 #### [facility] [address] [place], [place], [address] CBC-COMPLETE BLOOD CNT Collected: 06/29/2018 Status: F Source: ROHINI NO DIFF 10:45 AM [facility] REPOSITORY TYPE CODE TESTS RESULT [...] 9.6 Performed By: #### L101.9900, L100.0500 #### [facility] [address] [facility] [place], [place], [address] BASIC METABOLIC Collected: 06/29/2018 Status: F Source: ROHINI PROFILE (BMP) 10:45 AM [facility] REPOSITORY TYPE CODE TESTS RESULT [...] GAP 8 Performed By: #### L500.2500 #### [facility] [address] [address] [place], [place], [address] ERYTHROCYTE SED RATE Collected: 06/22/2018 Status: F Source: ROHINI 10:45 AM [facility] REPOSITORY TYPE CODE TESTS RESULT OUT OF RANGE REFERENCE UNITS LAB L102.0000 0-20 mm/hr High SED RATE 89 Performed By: #### L101.9900, L100.0500 #### [facility] [address] [place], [place], [address] CBC-COMPLETE BLOOD CNT Collected: 06/22/2018 Status: F Source: ROHINI NO DIFF 10:45 AM [facility] REPOSITORY TYPE CODE TESTS RESULT [...] 9.8 Performed By: #### L101.9900, L100.0500 #### [facility] [address] [place], [place], [address] BASIC METABOLIC Collected: 06/22/2018 Status: F Source: ROHINI PROFILE (BMP) 10:45 AM [facility] REPOSITORY TYPE CODE TESTS RESULT [...] GAP 4 Performed By: #### L500.2500 #### [facility] [address] [place], [address] BASIC METABOLIC Collected: 06/15/2018 Status: F Source: F[place] PROFILE (BMP) 4:21 PM [facility] REPOSITORY TYPE CODE TESTS RESULT [...] GAP 7 Performed By: #### L500.2500 #### [facility] [address] [place], [place], [address] CBC-COMPLETE BLOOD CNT Collected: 06/15/2018 Status: F Source: ROHINI NO DIFF 4:21 PM [facility] REPOSITORY TYPE CODE TESTS RESULT [...] 9.6 Performed By: #### L100.0500, L101.9900 #### [facility] [address] [facility] [place], [place], [address] ERYTHROCYTE SED RATE Collected: 06/15/2018 Status: F Source: ROHINI 4:21 PM [facility] REPOSITORY TYPE CODE TESTS RESULT OUT OF RANGE REFERENCE UNITS LAB L102.0000 0-20 mm/hr High SED RATE 76 Performed By: #### L100.0500, L101.9900 #### [facility] [address] [facility] [place], [place], [address] PLASTIC SURGERY Observed: 06/10/2018 Status: F Source: ROHINI VISIT REPORT 2:19 PM [facility] REPOSITORY [facility] [address] [place] [address] OFFICE VISIT Date of Service: 06/04/18 MR#: [id number] Acct: [id number] Name: ROBLES CARRASQUILLO Rep #: [id number] : 1970 Provider: Sean Stevenson MD Age/Sex: 48/F Location: [facility] Status: Signed Intake Vital Signs06/04/18 Blood Pressure 111/76 06/04/18 Blood Pressure Location Rt brachial 06/04/18 Blood Pressure Position Sitting 06/04/18 Respiratory Rate 18 Intake Visit Reasons: post op surgery 05/05/18 and 05/19/18 Cylinder Machine Operator Required: No Accompanied by: None Is patient [...] breast reconstruction with removal of saline tissue fish roe technician with replacement cohesive gel implant (800 ml) [...] removal, prophylactic Z40.01 Former smoker Z87.891 06/10/18 6807 <Electronically signed by Sean Stevenson MD> Date Sean Stevenson MD 06/10/18 1419<Electronically signed by Huma SEE> Cosigner Signature: Date (if applicable) Huma Infante CC: BASIC METABOLIC Collected: 06/08/2018 Status: F Source: ROHINI PROFILE (BMP) 12:10 PM [facility] REPOSITORY TYPE CODE TESTS RESULT [...] GAP 7 Performed By: #### L500.2500 #### [facility] [address] [place], [address] CBC-COMPLETE BLOOD CNT Collected: 06/08/2018 Status: F Source: ROHINI NO DIFF 12:10 PM [facility] REPOSITORY TYPE CODE TESTS RESULT [...] 9.9 Performed By: #### L100.0500, L101.9900 #### [facility] [address] [place], [address] ERYTHROCYTE SED RATE Collected: 06/08/2018 Status: F Source: ROHINI 12:10 PM [facility] REPOSITORY TYPE CODE TESTS RESULT OUT OF RANGE REFERENCE UNITS LAB L102.0000 0-20 mm/hr High SED RATE 98 Performed By: #### L100.0500, L101.9900 #### [facility] [address] [place], [address] CBC-COMPLETE BLOOD CNT Collected: 06/02/2018 Status: F Source: ROHINI NO DIFF 1:00 PM [facility] REPOSITORY TYPE CODE TESTS RESULT [...] 9.8 Performed By: #### L100.0500, L101.9900 #### [facility] [address] [place], [place], [address] ERYTHROCYTE SED RATE Collected: 06/02/2018 Status: F Source: FREEMAN 1:00 PM [facility] REPOSITORY TYPE CODE TESTS RESULT OUT OF RANGE REFERENCE UNITS LAB L102.0000 0-20 mm/hr High SED RATE 60 Performed By: #### L100.0500, L101.9900 #### [facility] [address] [place], [place], [address] BASIC METABOLIC Collected: 06/02/2018 Status: F Source: FREEMAN PROFILE (BMP) 1:00 PM [facility] REPOSITORY TYPE CODE TESTS RESULT [...] GAP 10 Performed By: #### L500.2500 #### [facility] [place], [address] PLASTIC SURGERY Observed: 05/29/2018 Status: F Source: FREEMAN VISIT REPORT 3:24 PM [facility] REPOSITORY [facility] [address] [place] [address] OFFICE VISIT Date of Service: 05/19/18 MR#: [id number] Acct: [id number] Name: ROBLES CARRASQUILLO Rep #: [id number] : 1970 Provider: Sean Stevenson MD Age/Sex: 48/F Location: [facility] Status: Signed Intake Vital Signs05/19/18 Blood Pressure 165/119 05/19/18 Blood Pressure Location Rt radial 05/19/18 Blood Pressure Position Sitting 05/19/18 Respiratory Rate 14 Intake Visit Reasons: post op surgery 05/05/18 Cylinder Machine Operator Required: No Accompanied by: None Is patient [...] breast reconstruction with removal of saline tissue fish roe technician with replacement cohesive gel implant (800 ml) [...] OPERATIVE REPORT Observed: 05/29/2018 Status: F Source: FREEMAN 2:17 PM [facility] REPOSITORY [facility] Medical Records Department [address] [place] [address] Operative Report 05/19/18 2315 MR#: [id number] Acct: [id number] Name: ROBLES CARRASQUILLO Rep #: [id number] : 1970 48 From: Sean Stevenson MD PCP: Eduardo Garison, DO Status: DIS IN Y Location: [facility] [id number] Report of Operation Date of Procedure: 05/19/18 Pre-Operative Diagnosis: 1. Infected right breast implant reconstruction with abscess. 2. History of recurrent infections bilateral breasts. 3. s/p completion mastectomy right breast. 4. Acquired absence right breast. 5. Disproportion reconstructed breasts. 6. Former smoker. 7. MRSA. 8. s/p delayed right breast reconstruction with removal of saline tissue fish roe technician with replacement cohesive gel implant (800 ml) [...] breast reconstruction with removal of saline tissue fish roe technician with replacement cohesive gel implant (800 ml) [...] - 17 x 35 x 5 cm. felt cutter: Rony Gotti. Type of Anesthesia:: General Specimen's [...] Yes Code Visit Surgery Charges CPT - 86093 ICD-10 - N61.1, T85.79xA, Z90.11, N65.1, N65.0, Z86.14, Z98.82, Z40.01 72644 N61.1, T85.79xA, Z90.11, N65.1, N65.0, Z86.14, Z98.82, Z40.01 05/29/18 1417 <Electronically signed by Sean Stevenson MD> Date Sean Stevenson MD CC: Jonn Pedroza MD; Sean Stevenson MD; Eduardo Rubio DO; Alexandre Ivan MD; Matty Quiroz MD; [facility] Signed PROGRESS Observed: 05/28/2018 Status: COMPLETED Source: [place]BAY 11:16 AM [facility] REPOSITORY HNO ID: [id number] Author: Rhona Montiel (Zachary Castro Service: (none) [...] through Dr. Stevenson. VAC dressing changes by [facility], will be seeing wound clinic as well. [...] - follow with Dr. Stevenson - continue [facility] 2. Acquired hypothyroidism - ICD9: 244.9, ICD10: E03.9 - check TSH - f/u in 3 months and PRN Rhona Castro APRN.[employer] THYROID STIM HORMONE Collected: 05/27/2018 Status: F Source: ROHINI (TSH) 12:00 AM [facility] REPOSITORY TYPE CODE TESTS RESULT OUT OF RANGE REFERENCE UNITS LAB L501.9520 0.358-3.74 uIU/mL High TSH 19.00 Performed By: #### L501.9520 #### [facility] Laboratory [address] [place], [address] CNOV Observed: 05/26/2018 Status: COMPLETED Source: [place] 2:20 PM [facility] REPOSITORY Office Visit (FAMPWS) ROBLES CARRASQUILLO ([id number]) 1970 F Date Time Provider Department 05/26/18 2:20 PM RHONA CASTRO ([facility]) SHARONWS During your visit today, we recorded the following information about you: Pulse Blood pressure Weight 84/minute 142/86 137.4 kg Rhona Castro APRN.[employer] 05/28/2018 11:25 AM Signed HPI/CC: Robles Carrasquillo [...] through Dr. Stevenson. VAC dressing changes by [facility], will be seeing wound clinic as well. [...] diagnosis) - follow with Dr. Stevenson - [facility] 2. Acquired hypothyroidism - ICD9: 244.9, ICD10: E03.9 - check TSH - f/u in 3 months and PRN Rhona Castro APRN.[employer] Referring Provider: SELF [200] Allergies As of [...] PRESCRIPTIONObtain TSH Fax results to Rhona Castro [employer] to [phone]: 1 EachRfl: 0 Prescriptions as of 05/26/2018 [...] Fax results to Rhona Castro CNP to [phone] Encounter Status:Closed by RHONA CASTRO CNP on 05/28/18 ERYTHROCYTE SED RATE Collected: 05/25/2018 Status: F Source: FREEMAN 10:32 AM [facility] REPOSITORY TYPE CODE TESTS RESULT OUT OF RANGE REFERENCE UNITS LAB L102.0000 0-20 mm/hr High SED RATE 67 Performed By: #### L101.9900, L100.0500 #### [facility] Laboratory [facility] [address] [place], [place], [address] CBC-COMPLETE BLOOD CNT Collected: 05/25/2018 Status: F Source: FREEMAN NO DIFF 10:32 AM [facility] REPOSITORY TYPE CODE TESTS RESULT [...] 9.7 Performed By: #### L101.9900, L100.0500 #### [facility] [address] [place], [place], [address] BASIC METABOLIC Collected: 05/25/2018 Status: F Source: ROHINI PROFILE (BMP) 10:32 AM [facility] REPOSITORY TYPE CODE TESTS RESULT [...] GAP 9 Performed By: #### L500.2500 #### [facility] [address] [place], [place], [address] VANCOMYCIN, TROUGH Collected: 05/25/2018 Status: F Source: ROHINI LEVEL 10:32 AM [facility] REPOSITORY Order Comment: Time Medication is to [...] (Ventilator/Healtcare Associated) -Sepsis PLEASE CONTACT PHARMACY SERVICES (#[id number]) FOR INTERPRETATION OF RESULTS. Performed By: #### L501.8820 #### [facility] [address] [place], [address] PLASTIC SURGERY Observed: 05/25/2018 Status: F Source: FREEMAN VISIT REPORT 10:31 AM [facility] REPOSITORY [facility] [address] [place] [address] OFFICE VISIT Date of Service: 05/12/18 MR#: [id number] Acct: [id number] Name: ROBLES CARRASQUILLO Rep #: [id number] : 1970 Provider: Sean Stevenson MD Age/Sex: 48/F Location: [facility] Status: Signed Intake Vital Signs05/12/18 Height 5 ft 6 in 05/12/18 Weight: 294 lb 2 oz Intake Visit Reasons: post op surgery 05/05/2018 Cylinder Machine Operator Required: No Accompanied by: Daughter Is patient [...] Dose 1 ea IV X1 PRN ea 08/22/18 [Rx] Vancomycin IV 2,000 mg IV Q12H [...] breast reconstruction with removal of saline tissue fish roe technician with replacement cohesive gel implant (800 ml) [...] Breast removal, prophylactic Z40.01 Former smoker Z87.891 05/24/181 <Electronically signed by Sean Stevenson MD> Date Sean Stevenson MD 05/25/18 1031<Electronically signed by Huma KLINEC> Cosigner Signature: Date (if applicable) Huma InfanteC CC: DISCHARGE SUMMARY Observed: 05/25/2018 Status: F Source: FREEMAN 1:30 AM [facility] REPOSITORY [facility] Medical Records Department [address] [place] [address] Discharge Summary 05/21/18 1735 MR#: [id number] Acct: [id number] Name: ROBLES CARRASQUILLO Mary Ellen Rep #: [id number] : 1970 48 From: Sean Stevenson MD PCP: Eduardo Rubio DO Status: DIS IN Y Location: [facility] [id number] Discharge Date and Diagnosis Date of Admission: [...] Imaging Results: None. Consultations 05/20/18 06:46 Consult: Onc/Wound/show girl Routine Comment: Reason for Consult:: wound vac [...] breast reconstruction with removal of saline tissue fish roe technician with replacement cohesive gel implant (800 ml) [...] Cleanse incision/area with: Soap AND Water - masarmando cleanse the wound with soap and water [...] 2 weeks at the wound center. call [phone] for appt. Disposition: Home with Home Health [...] 05/23/2018 Status: F Source: ROHINI 9:35 PM [facility] REPOSITORY [facility] Medical Records Department [address] [place] [address] [place] [address] Instructions for Home/Discharge Instructions 05/20/18 1543 MR#: [id number] Acct: [id number] Name: ROBLES CARRASQUILLO Rep #: [id number] : 1970 48 From: Sean Stevenson MD PCP: Eduardo Rubio, DO Status: DIS IN You will use [...] Days #60 tab PRN Reason: Severe Pain (6-10/10) Vancomycin IV 2,000 mg IV Q12H #28 [...] 2 weeks at the wound center. call [phone] for appt. Proposed Discharge Date: 05/21/18 05/23/182134 <Electronically signed by Sean Stevenson MD> Date Sean Stevenson MD CC: Jonn Pedroza MD; Eduardo Rubio DO; Alexandre Ivan MD; Matty Quiroz MD; [facility] CBC-COMPLETE BLOOD CNT Collected: 05/21/2018 Status: F Source: ROHINI NO DIFF 7:40 AM [facility] REPOSITORY TYPE CODE TESTS RESULT [...] MPV 9.5 Performed By: #### L100.0500 #### [facility] [address] [place], [address] BASIC METABOLIC Collected: 05/21/2018 Status: F Source: ROHINI PROFILE (BMP) 7:40 AM [facility] REPOSITORY TYPE CODE TESTS RESULT [...] Normal 7 Performed By: #### L500.2500 #### [facility] Laboratory [address] [place], [place], [address] VANCOMYCIN, TROUGH Collected: 05/21/2018 Status: F Source: ROHINI LEVEL 7:40 AM [facility] REPOSITORY Order Comment: Has pt arrived? Y [...] (Ventilator/Healtcare Associated) -Sepsis PLEASE CONTACT PHARMACY SERVICES (#[id number]) FOR INTERPRETATION OF RESULTS. Performed By: #### L501.8820 #### [facility] [address] [place], [address] CONSULTATION Observed: 05/20/2018 Status: F Source: FREEMAN 3:42 PM [facility] REPOSITORY [facility] Medical Records Department [address] [place] [address] Consultation 05/20/18 1513 MR#: [id number] Acct: [id number] Name: ROBLES CARRASQUILLO Rep #: [id number] : 1970 48 From: Alexandre Ivan MD PCP: Eduardo Rubio DO Status: ADM IN Location: [place] [address] Problem List (1) History of Graves' disease [...] Gastric bypass status for obesity Z98.84 04/10/2010 CHUCK 158 LBS LOSS HERNIA REPAIR WITH MESH [...] health Code Visit Inpatient E AND M: 29755 Init Hosp L2 05/20/18 1542 <Electronically signed by Alexandre Ivan MD> Date Alexandre Ivan MD Cosigner Signature (if applicable): Date CC: Sean Stevenson MD; Eduardo Rubio DO; Alexandre Ivan MD; Matty Quiroz MD Signed CONSULTATION Observed: 05/20/2018 Status: F Source: ROHINI 11:53 AM [facility] REPOSITORY [facility] Medical Records Department [address] [place] [address] Consultation 05/20/18 1143 MR#: [id number] Acct: [id number] Name: ROBLES CARRASQUILLO Rep #: [id number] : 1970 48 From: Matty Quiroz MD PCP: Eduardo Rubio DO Status: ADM IN Y Location: MS2 LM468-6 Problem List (1) Abscess of right breast [...] Did well, then taken back for tissue fish roe technician placement. Given 6 week course of iv vanc at that time more as a preventative measure, and then picc removed and she was doing well. 2 weeks ago on 05/05/18, had fish roe technician removed and implant placed. Picc was put [...] F Source: ROHINI NO DIFF 4:20 AM [facility] REPOSITORY TYPE CODE TESTS RESULT [...] 9.8 Performed By: #### L100.0500, L101.9900 #### [facility] [address] [place], [address] ERYTHROCYTE SED RATE Collected: 05/20/2018 Status: F Source: ROHINI 4:20 AM [facility] REPOSITORY TYPE CODE TESTS RESULT OUT OF RANGE REFERENCE UNITS LAB L102.0000 0-20 mm/hr High SED RATE 88 Performed By: #### L100.0500, L101.9900 #### [facility] [address] [place], [address] BASIC METABOLIC Collected: 05/20/2018 Status: F Source: ROHINI PROFILE (BMP) 4:20 AM [facility] REPOSITORY TYPE CODE TESTS RESULT [...] Performed By: #### L500.2500, L501.6710, L506.0500 #### [facility] [address] [place], [address] CRP Collected: 05/20/2018 Status: F Source: FREEMAN 4:20 AM [facility] REPOSITORY TYPE CODE TESTS RESULT [...] Performed By: #### L500.2500, L501.6710, L506.0500 #### [facility] Laboratory [address] [place], [address] PREALBUMIN Collected: 05/20/2018 Status: F Source: FREEMAN 4:20 AM [facility] REPOSITORY TYPE CODE TESTS RESULT OUT OF REFERENCE UNITS RANGE LAB L506.0500 20.0-40.0 mg/dL Low PREALBUMIN 12.6 Performed By: #### L500.2500, L501.6710, L506.0500 #### [facility] [address] [place], [address] MRSA WOUND DNA BY Collected: 05/19/2018 Status: F Source: ROHINI PCR 7:50 PM [facility] REPOSITORY Order Comment: Has pt arrived? Y Specimen Source? RIGHT BREAST ABSCESS TYPE CODE TESTS RESULT OUT OF RANGE REFERENCE UNITS LAB L8200.1100 Negative Normal MRSA Negative RESULT LAB L8200.1150 Negative Normal SA RESULT NEGATIVE Performed By: #### L8200.1075 #### [facility] [address] [place], [address] Observed: 05/19/2018 Status: F Source: ROHINI CULTURE, DEEP WOUND 7:50 PM [facility] REPOSITORY Order Date: 04/30/17 Has pt arrived? [...] <=20 S (NF) indicates non-formulary drug at [facility]. Approval by Infectious Disease Specialist required before non-formulary drugs may be ordered and/or dispensed. Cult, Anaerobic No anaerobic bacteria isolated. Performed By: #### M100.1500 #### [facility] [address] [place], [address] ABSCESS (CHOOSE Observed: 05/19/2018 Status: F Source: [facility]) 2:45 PM [facility] REPOSITORY Patient: ROBLES CARRASQUILLO : 1970 (48/F) Acct Num: [id number] Phys: Sean Stevenson MD Unit Num: [id number] Loc: MS2 LL696-3 Specimen: [id number] Received: 05/20/18814 Spec Type: Abscess TISSUES TISSUES: A. Right breast, NOS B. FOREIGN BODY - BREAST IMPLANT GROSS DESCRIPTION A - Received is one container labeled with the patient's name and not further designated. The specimen consists of 11 fragments of soft tissue, indurated tissue and blood clots aggregating to 15 x 13 x 2 cm. Serial sections do not reveal mass lesions. Asset Accountant sections are submitted in three cassettes. B [...] are submitted. / AM:latha 05/20/18 TC:2 CPT: 76737, 52340 HEADER OPERATION: Removal, breast implant PRE-OP DIAGNOSIS: [...] implant (gross only). SJ:latha 05/21/18 Signed Andres Vailin 05/21/18 <signature on file> Performed By: #### PABS #### [facility] [address] [place], [address] COMPREHENSIVE METABOLIC Collected: 05/18/2018 Status: F Source: [facility] 8:20 AM [facility] REPOSITORY TYPE CODE TESTS RESULT [...] 12 Performed By: #### L500.4050, L501.6710 #### [facility] Laboratory [address] [address] [place], [place], [address] CRP Collected: 05/18/2018 Status: F Source: FREEMAN 8:20 AM [facility] REPOSITORY TYPE CODE TESTS RESULT OUT OF RANGE REFERENCE UNITS LAB L501.6710 0.0-3.0 mg/L High 185.00 C-REACTIVE PROT Result Comment: C-Reactive Protein (CRP) provides useful information for the diagnosis, therapy and monitoring of inflammatory processes and associated diseases. For the evaluation of Relative Risk for Cardiovascular Disease, a High Sensitivity CRP (HSCRP) should be ordered. Performed By: #### L500.4050, L501.6710 #### [facility] [address] [facility] [address] [place], [place], [address] CBC-COMPLETE BLOOD CNT Collected: 05/18/2018 Status: F Source: ROHINI NO DIFF 8:20 AM [facility] REPOSITORY TYPE CODE TESTS RESULT [...] 10.3 Performed By: #### L100.0500, L101.9900 #### [facility] [address] [place], [address] ERYTHROCYTE SED RATE Collected: 05/18/2018 Status: F Source: ROHINI 8:20 AM [facility] REPOSITORY TYPE CODE TESTS RESULT OUT OF RANGE REFERENCE UNITS LAB L102.0000 0-20 mm/hr High SED RATE 77 Performed By: #### L100.0500, L101.9900 #### [facility] [address] [place], [address] VANCOMYCIN, TROUGH Collected: 05/18/2018 Status: F Source: ROHINI LEVEL 8:20 AM [facility] REPOSITORY Order Comment: Time Medication is to [...] (Ventilator/Healtcare Associated) -Sepsis PLEASE CONTACT PHARMACY SERVICES (#[id number]) FOR INTERPRETATION OF RESULTS. Performed By: #### L501.8820 #### [facility] [address] [place], [address] ERYTHROCYTE SED RATE Collected: 05/11/2018 Status: F Source: ROHINI 8:30 AM [facility] REPOSITORY TYPE CODE TESTS RESULT OUT OF RANGE REFERENCE UNITS LAB L102.0000 0-20 mm/hr High SED RATE 66 Performed By: #### L101.9900, L100.0500 #### [facility] [address] [place], [address] CBC-COMPLETE BLOOD CNT Collected: 05/11/2018 Status: F Source: ROHINI NO DIFF 8:30 AM [facility] REPOSITORY TYPE CODE TESTS RESULT [...] 10.3 Performed By: #### L101.9900, L100.0500 #### [facility] [address] [place], [place], [address] VANCOMYCIN, TROUGH Collected: 05/11/2018 Status: F Source: [facility] 8:30 AM [facility] REPOSITORY Order Comment: Send Results To: pharmacy to dose. also fax results to [phone]. Reason for Laboratory Test MRSA Time Medication [...] (Ventilator/Healtcare Associated) -Sepsis PLEASE CONTACT PHARMACY SERVICES (#[id number]) FOR INTERPRETATION OF RESULTS. Performed By: #### L501.8820 #### [facility] [address] [place], [address] COMPREHENSIVE METABOLIC Collected: 05/11/2018 Status: F Source: [facility] 8:30 AM [facility] REPOSITORY TYPE CODE TESTS RESULT [...] 11 Performed By: #### L500.4050, L501.6710 #### [facility] Laboratory [address] [place], [address] CRP Collected: 05/11/2018 Status: F Source: ROHINI 8:30 AM [facility] REPOSITORY TYPE CODE TESTS RESULT OUT OF RANGE REFERENCE UNITS LAB L501.6710 0.0-3.0 mg/L High 11.60 C-REACTIVE PROT Result Comment: C-Reactive Protein (CRP) provides useful information for the diagnosis, therapy and monitoring of inflammatory processes and associated diseases. For the evaluation of Relative Risk for Cardiovascular Disease, a High Sensitivity CRP (HSCRP) should be ordered. Performed By: #### L500.4050, L501.6710 #### [facility] [address] [facility] [place], [address] HISTORY AND PHYSICAL Observed: 05/08/2018 Status: F Source: FREEMAN EXAM 1:16 PM [facility] REPOSITORY [facility] Medical Records Department [address] [place] [address] History and Physical 05/04/18 1754 MR#: [id number] Acct: [id number] Name: ROBLES CARRASQUILLO Rep #: [id number] : 1970 48 From: Sean Stevenson MD PCP: Eduardo Rubio DO Status: DIS IN Y Location: [facility] [id number] History and Physical Date of Admission: 05/05/18 [...] reconstruction with placement of submuscular saline tissue fish roe technician (800 ml) and placement DermACELL decellularized dermis [...] Gastric bypass due to severe obesity 04/10/10 [place] 158lbs loss. Incisional hernia repair 07/03/10 panniculectomy [...] reconstruction with placement of submuscular saline tissue fish roe technician (800 ml) and placement DermACELL decellularized dermis [...] No clinical evidence of infection. Palpable tissue fish roe technician in place. Lungs: clear bilaterally to auscultation. [...] which is removal of the saline tissue fish roe technician with replacement cohesive gel implant. Will also [...] I will proceed with the saline tissue fish roe technician next month because of her recent MRSA [...] were included in a form from the [employer]. 05/08/18 1316 <Electronically signed by Sean Stevenson MD> Date Sean Stevenson MD Cosigner Signature: Date (if applicable) CC: Jonn Pedroza MD; Sean Stevenson MD; Eduardo Rubio DO Signed OPERATIVE REPORT Observed: 05/08/2018 Status: F Source: FREEMAN 1:13 PM [facility] REPOSITORY [facility] Medical Records Department [address] [place] [address] Operative Report 05/05/18 2242 MR#: [id number] Acct: [id number] Name: ROBLES CARRASQUILLO Rep #: [id number] : 1970 48 From: Sean Stevenson MD PCP: Eduardo Rubio DO Status: DIS IN Y Location: [place] 970781-1 Report of Operation Date of Procedure: 05/05/18 [...] breast reconstruction with removal of saline tissue fish roe technician with replacement cohesive gel implant (800 ml) [...] reconstruction with placement of submuscular saline tissue fish roe technician (800 ml) and placement DermACELL decellularized dermis [...] were included in a form from the [employer]. IV Fluids - 2000 ml. Urine Output - 150 ml. I used [place] MemoryGel Breast Implant Smooth Round Ultra High Profile, (800 ml). Reference Number - [id number]. Lot Number - [id number]. Serial Number - [id number]. I used Alloderm Select Acellular Dermal Matrix Graft, Contour Medium, Perforated, Thick, (132 cm2). Reference Number - [id number]. Lot Number - [id number]. Expiration - May,. I used Kiya absorbable hemostat, (I used 2 vials). Reference Number - [id number]. Lot Number - [id number]. Expiration - January 24, 2023. felt cutter: Danita Das. Type of Anesthesia:: General Specimen's [...] capsulotomy was performed and the saline tissue fish roe technician was removed. No abnormal fluid collection was [...] back in the supine position and the fish roe technician was removed. I then tried a 750 [...] mattress interrupted sutures. I then placed the [place] MemoryGel Breast Implant, smooth round ultra [...] she will need IV antibiotics. Grafts/Implants Used: [place] MemoryGel Breast Implant and Alloderm acellular dermal matrix graft. - Complications None. - Admit VTE Documentation VTE Present on Admission: No VTE Mechan Device Prophylaxis: SCD's VTE Pharm Prophylaxis ordered?: Yes Code Visit Surgery Charges CPT - 76005 ICD-10 - N61.1, Z90.11, Z40.01, N65.1, Z86.14, N65.0, L98.492, Z87.891 24147 N61.1, Z90.11, Z40.01, N65.0, L98.492, N65.1, Z86.14, Z87.891 35167 N61.1, Z90.11, Z40.01, N65.1, Z86.14, N65.0, L98.492, Z87.891 05/08/18 1313 <Electronically signed by Sean Stevenson MD> Date Sean Stevenson MD CC: Jonn Pedroza MD; Sean Stevenson MD; Eduardo Rubio DO Signed DISCHARGE INSTRUCTION Observed: 05/07/2018 Status: F Source: ROHINI 11:32 AM [facility] REPOSITORY [facility] Medical Records Department [address] [place] [address] Instructions for Home/Discharge Instructions 05/07/18 1126 MR#: [id number] Acct: [id number] Name: ROBLES CARRASQUILLO Rep #: [id number] : 1970 48 From: Sean Stevenson MD [...] Days #40 tab PRN Reason: Severe Pain (-07/08) Vancomycin [...] Sean Stevenson MD When: one week. call [phone] for appt. Proposed Discharge Date: 05/07/18 05/07/18 1132 <Electronically signed by Sean Stevenson MD> Date Sean Stevenson MD CC: Jonn Pedroza MD; Eduardo Rubio DO BASIC METABOLIC Collected: 05/07/2018 Status: F Source: ROHINI PROFILE (BMP) 5:40 AM [facility] REPOSITORY TYPE CODE TESTS RESULT [...] Normal 9 Performed By: #### L500.2500 #### [facility] [address] [place], [address] CBC-COMPLETE BLOOD CNT Collected: 05/07/2018 Status: F Source: FREEMAN NO DIFF 5:40 AM [facility] REPOSITORY TYPE CODE TESTS RESULT [...] MPV 10.4 Performed By: #### L100.0500 #### [facility] [address], [place], [address] VANCOMYCIN, TROUGH Collected: 05/06/2018 Status: F Source: ROHINI LEVEL 6:27 PM [facility] REPOSITORY Order Comment: Time Medication is to [...] (Ventilator/Healtcare Associated) -Sepsis PLEASE CONTACT PHARMACY SERVICES (#[id number]) FOR INTERPRETATION OF RESULTS. Performed By: #### L501.8820 #### [facility] [address] [place], [address] BASIC METABOLIC Collected: 05/06/2018 Status: F Source: ROHINI PROFILE (BMP) 6:46 AM [facility] REPOSITORY TYPE CODE TESTS RESULT [...] 7 Performed By: #### L500.2500, L506.0500 #### [facility] [address] [facility] [place], [address] PREALBUMIN Collected: 05/06/2018 Status: F Source: ROHINI 6:46 AM [facility] REPOSITORY TYPE CODE TESTS RESULT OUT OF RANGE REFERENCE UNITS LAB L506.0500 20.0-40.0 mg/dL Normal PREALBUMIN 29.5 Performed By: #### L500.2500, L506.0500 #### [facility] [address] [facility] [place], [address] CBC-COMPLETE BLOOD CNT Collected: 05/06/2018 Status: F Source: ROHINI NO DIFF 6:46 AM [facility] REPOSITORY TYPE CODE TESTS RESULT [...] MPV 9.8 Performed By: #### L100.0500 #### [facility] [address] [facility] [place], [place], [address] MRSA WOUND DNA BY Collected: 05/05/2018 Status: F Source: ROHINI PCR 1:37 PM [facility] REPOSITORY Order Comment: Comments: COLECTED IN OR RIGHT BREAST TISSUE Specimen Source? SWAB, RIGHT BREAST TISSUE TYPE CODE TESTS RESULT OUT OF RANGE REFERENCE UNITS LAB L8200.1100 Negative Normal MRSA Negative RESULT LAB L8200.1150 Negative Normal SA RESULT NEGATIVE Performed By: #### L8200.1075 #### [facility] [address] [place], [address] Observed: 05/05/2018 Status: F Source: ROHINI CULTURE, DEEP WOUND 1:37 PM [facility] REPOSITORY Order Date: 04/30/17 Comments: COLLECTED IN OR RIGHT BREAST TISSUE Gram Stain Gram Stain No organisms seen Wound Culture No growth aerobically. Cult, Anaerobic No growth in 5 days. Performed By: #### M100.1500 #### [facility] [address] [place], [address] Observed: 05/05/2018 Status: F Source: ROHINI CULTURE, FUNGUS W/ 1:37 PM [facility] [id number] REPOSITORY Comments: COLLECTED IN OR RIGHT BREAST TISSUE Is this test to exclude patient from TB Isolation? N Cu,Nhduph9230 TESTING PERFORMED AT [facility]. ORIGINAL REPORT ON FILE IN LAB CONTAINS ADDITIONAL TEST SITE INFORMATION. CUF No yeast or mold isolated after [address] TESTING PERFORMED AT [facility]. ORIGINAL REPORT ON FILE IN LAB CONTAINS ADDITIONAL TEST SITE INFORMATION. Fungus Stain No yeast or mold observed. Performed By: #### M600.1900 #### [facility] [address] [place], [address] BREAST MASTECTOMY Observed: 05/05/2018 Status: F Source: ROHINI (CHOOSE SIDE 9:30 AM [facility] REPOSITORY Patient: ROBLES CARRASQUILLO : 1970 (48/F) Acct Num: [id number] Phys: Sean Stevenson MD Unit Num: [id number] Loc: MS3 [id number] Specimen: [id number] Received: 05/05/181602 Spec Type: BREAST TISSUES TISSUES: Right breast, [...] aggregate 13 x 8 x 0.4 cm. Asset Accountant sections are submitted in four cassettes. Cassette 4 contains the detached pieces of indurated tissue. / JOHN:latha 05/06/18 TC:5 CPT: 08637 HEADER OPERATION: Right breast reconstruction, removal tissue fish roe technician PRE-OP DIAGNOSIS: Recurrent infectious bilateral breasts, bilateral [...] on file> Performed By: #### PBREAST #### [facility] [address] [place], [address] T3 TOTAL - TRIIODOTHYRONINE Collected: 04/27/2018 Status: F Source: ROHINI 2:55 PM [facility] REPOSITORY TYPE CODE TESTS RESULT OUT OF RANGE REFERENCE UNITS LAB L501.9186 0.6-1.81 ng/mL Normal T3 Total 0.75 Performed By: #### L501.9186 #### [facility] [address] [facility] [place], [place], [address] THYROID STIM HORMONE Collected: 04/27/2018 Status: F Source: ROHINI (TSH) 2:55 PM [facility] REPOSITORY TYPE CODE TESTS RESULT OUT OF RANGE REFERENCE UNITS LAB L501.9520 0.358-3.74 uIU/mL High TSH 6.49 Performed By: #### L501.9520, L506.0400 #### [facility] [address] [facility] [place], [address] T4 FREE DIRECT Collected: 04/27/2018 Status: F Source: FREEMAN 2:55 PM [facility] REPOSITORY TYPE CODE TESTS RESULT OUT OF RANGE REFERENCE UNITS LAB L506.0400 0.76-1.46 ng/dL Normal T4 FREE 0.95 DIRECT Performed By: #### L501.9520, L506.0400 #### [facility] [address] [place], [address] PLASTIC SURGERY Observed: 04/24/2018 Status: F Source: ROHINI VISIT REPORT 5:48 PM [facility] REPOSITORY [facility] [address] [place] [address] OFFICE VISIT Date of Service: 03/12/18 MR#: [id number] Acct: [id number] Name: ROBLES CARRASQUILLO Rep #: [id number] : 1970 Provider: Sean Stevenson MD Age/Sex: 48/F Location: [facility] Status: Signed Intake Vital Signs03/12/18 Height 5 ft 7 in 03/12/18 Weight: 280 lb 2 oz Intake Visit Reasons: postop surgery 12/16/17 Cylinder Machine Operator Required: No Accompanied by: Daughter Is patient [...] reconstruction with placement of submuscular saline tissue fish roe technician (800 ml) and placement DermACELL decellularized dermis [...] 750 ml saline in an 800 ml fish roe technician. May stop expanding and prepare for the next stage in her breast reconstruction process which is removal of the fish roe technician with replacement cohesive gel implant. Will also [...] were included in a form from the [employer]. Followup after her [...] MRSA infection Z86.14 Former smoker Z87.891 04/24/18 5478 <Electronically signed by Sean Stevenson MD> Date Sean Stevenson MD Cosigner Signature: Date (if applicable) CC: THYROID STIM HORMONE Collected: 04/10/2018 Status: F Source: FREEMAN (TSH) 4:51 PM [facility] REPOSITORY TYPE CODE TESTS RESULT OUT OF RANGE REFERENCE UNITS LAB L501.9520 0.358-3.74 uIU/mL High TSH 16.50 Performed By: #### L501.9520 #### [facility] [address] [place], [place], [address] PROTHROMBIN TIME W/INR Collected: 04/09/2018 Status: F Source: ROHINI 12:28 PM [facility] REPOSITORY TYPE CODE TESTS RESULT OUT OF RANGE REFERENCE UNITS LAB L300.4150 11.7-14.9 SECONDS Normal PROTIME 12.5 LAB L300.4200 Normal INR 0.9 Performed By: #### L300.3900, L300.4310 #### [facility] [address] [place], [place], [address] PARTIAL THROMBOPLAST Collected: 04/09/2018 Status: F Source: ROHINI TIME 12:28 PM [facility] REPOSITORY TYPE CODE TESTS RESULT OUT OF RANGE REFERENCE UNITS LAB L300.4310 24.1-36.2 Seconds Normal PTT 31.8 Performed By: #### L300.3900, L300.4310 #### [facility] [address] [place], [address] CBC W/DIFF, AUTOMATED Collected: 04/09/2018 Status: F Source: FREEMAN 12:28 PM [facility] REPOSITORY TYPE CODE TESTS RESULT [...] Lymph 2.12 Performed By: #### L100.0100 #### [facility] [address] [place], [place], [address] LIVER PROFILE Collected: 04/09/2018 Status: F Source: FREEMAN 12:28 PM [facility] REPOSITORY TYPE CODE TESTS RESULT [...] 0.06 Performed By: #### L500.3400, L501.9520 #### [facility] [address] [place], [address] THYROID STIM HORMONE Collected: 04/09/2018 Status: F Source: FREEMAN (TSH) 12:28 PM [facility] REPOSITORY TYPE CODE TESTS RESULT OUT OF RANGE REFERENCE UNITS LAB L501.9520 0.358-3.74 uIU/mL High TSH 14.80 Performed By: #### L500.3400, L501.9520 #### [facility] [address] [place], [address] Observed: 03/12/2018 Status: F Source: ROHINI CULTURE, SURGERY DEEP 4:18 PM [facility] WOUND REPOSITORY List Antibiotics Last 48 Hours? UNK List Antibiotics to be Started? UNK Gram Stain Gram Stain Rare White Blood Cells No organisms seen Wound Culture There are no CLSI standards for interpretation of this Drug/Organism combination. Clinical correlation necessary, Possible skin contamination. ORGANISM 1: Kocuria kristinae Amount Growth Rare Cult, Anaerobic No growth in 5 days. Performed By: #### M100.1550 #### [facility] [address], [address] PLASTIC SURGERY Observed: 02/27/2018 Status: F Source: ROHINI VISIT REPORT 5:09 PM [facility] REPOSITORY [facility] [address] [place] [address] OFFICE VISIT Date of Service: 02/11/18 MR#: [id number] Acct: [id number] Name: ROBLES CARRASQUILLO Rep #: [id number] : 1970 Provider: Sean [facility] MD Age/Sex: 48/F Location: [facility] Status: Signed Intake Vital Signs02/11/18 Height 5 ft 7 in 02/11/18 Weight: 284 lb 02/11/18 Body Mass Index (BMI) 44.4 02/11/18 Respiratory Rate 16 Intake Visit Reasons: postop surgery 12/16/17 Cylinder Machine Operator Required: No Accompanied by: None Is patient [...] reconstruction with placement of submuscular saline tissue fish roe technician (800 ml) and placement DermACELL decellularized dermis [...] mg PO 4X/DAY PRN painN61.1, N65.1, Z86.14, G1Vxaoxdzbab Daemon Discontinued Reason: 0.11 By Stop Date [...] PLASTIC SURGERY Observed: 02/25/2018 Status: F Source: FREEMAN VISIT REPORT 2:45 PM [facility] REPOSITORY [facility] [address] [address] OFFICE VISIT Date of Service: 02/25/18 MR#: [id number] Acct: [id number] Name: ROBLES CARRASQUILLO Rep #: [id number] : 1970 Provider: Sean [facility] MD Age/Sex: 48/F Location: [facility] Status: Signed Intake Vital Signs02/25/18 Height 5 ft 7 in 02/25/18 Weight: 278 lb 8 oz Intake Visit Reasons: postop surgery 12/16/17 Cylinder Machine Operator Required: No Accompanied by: None Is patient [...] reconstruction with placement of submuscular saline tissue fish roe technician (800 ml) and placement DermACELL decellularized dermis [...] sterile saline into the right breast tissue fish roe technician without difficulty. I injected 250 ml for a total of 750 ml saline in an 800 ml fish roe technician. She tolerated the procedure well. Will apply [...] PLASTIC SURGERY Observed: 02/23/2018 Status: F Source: FREEMAN VISIT REPORT 2:01 AM [facility] REPOSITORY [facility] [address] [address] OFFICE VISIT Date of Service: 02/04/18 MR#: [id number] Acct: [id number] Name: ROBLES CARRASQUILLO Rep #: [id number] : 1970 Provider: Sean [facility] MD Age/Sex: 48/F Location: [facility] Status: Signed Intake Vital Signs02/04/18 Height 5 ft 7 in 02/04/18 Weight: 284 lb 8 oz 02/04/18 Body Mass Index (BMI) 44.5 02/04/18 Respiratory Rate 16 Intake Visit Reasons: postop surgery 12/16/17 Cylinder Machine Operator Required: No Accompanied by: None Is patient [...] reconstruction with placement of submuscular saline tissue fish roe technician (800 ml) and placement DermACELL decellularized dermis [...] sterile saline into the right breast tissue fish roe technician without difficulty. I injected 250 ml for a total of 500 ml saline in an 800 ml fish roe technician. She tolerated the procedure well. Will apply [...] PLASTIC SURGERY Observed: 02/22/2018 Status: F Source: FREEMAN VISIT REPORT 1:58 AM [facility] REPOSITORY [facility] [address] [place] [address] OFFICE VISIT Date of Service: 01/16/18 MR#: [id number] Acct: [id number] Name: ROBLES CARRASQUILLO Rep #: [id number] : 1970 Provider: Sean [facility] MD Age/Sex: 48/F Location: [facility] Status: Signed Intake Vital Signs01/16/18 Height 5 ft 7 in 01/16/18 Weight: 184 lb 4 oz Intake Visit Reasons: postop surgery 12/16/17 Cylinder Machine Operator Required: No Accompanied by: None Is patient [...] reconstruction with placement of submuscular saline tissue fish roe technician (800 ml) and placement DermACELL decellularized dermis [...] sterile saline into the right breast tissue fish roe technician without difficulty. I injected 250 ml in an 800 ml fish roe technician. She tolerated the procedure well. Will apply [...] mg PO 4X/DAY PRN paiN61.1, N65.1, Z86.14, H6Ajraoreruc Daemon Discontinued Reason:n 0.11 By Stop Date [...] PLASTIC SURGERY Observed: 01/26/2018 Status: F Source: ROHINI VISIT REPORT 11:26 AM [facility] REPOSITORY [facility] [address] [address] OFFICE VISIT Date of Service: 01/06/18 MR#: [id number] Acct: [id number] Name: ROBLES CARRASQUILLO Rep #: [id number] : 1970 Provider: Sean [facility] MD Age/Sex: 47/F Location: [facility] Status: Signed Intake Vital Signs01/06/18 Height 5 ft 6 in 01/06/18 Weight: 287 lb Intake Visit Reasons: postop surgery 12/16/17 Cylinder Machine Operator Required: No Accompanied by: Daughter Is patient [...] reconstruction with placement of submuscular saline tissue fish roe technician (800 ml) and placement DermACELL decellularized dermis [...] Gastric bypass due to severe obesity 04/10/10 [place] 158lbs loss. Incisional hernia repair 07/03/10 panniculectomy [...] reconstruction with placement of submuscular saline tissue fish roe technician (800 ml) and placement DermACELL decellularized dermis [...] SED RATE Collected: 01/26/2018 Status: F Source: FREEMAN 8:30 AM [facility] REPOSITORY TYPE CODE TESTS RESULT OUT OF RANGE REFERENCE UNITS LAB L102.0000 0-20 mm/hr High SED RATE 27 Performed By: #### L101.9900, L100.0100, L500.4050, L501.6710 #### [facility] [address] [place], [place], [address] CBC W/DIFF, AUTOMATED Collected: 01/26/2018 Status: F Source: ROHINI 8:30 AM [facility] REPOSITORY TYPE CODE TESTS RESULT [...] By: #### L101.9900, L100.0100, L500.4050, L501.6710 #### [facility] [address] [place], [address] COMPREHENSIVE METABOLIC Collected: 01/26/2018 Status: F Source: [facility] 8:30 AM [facility] REPOSITORY TYPE CODE TESTS RESULT [...] By: #### L101.9900, L100.0100, L500.4050, L501.6710 #### [facility] [address] [place], [address] CRP Collected: 01/26/2018 Status: F Source: ROHINI 8:30 AM [facility] REPOSITORY TYPE CODE TESTS RESULT [...] By: #### L101.9900, L100.0100, L500.4050, L501.6710 #### [facility] [address] [place], [address] VANCOMYCIN, TROUGH Collected: 01/26/2018 Status: F Source: FREEMAN LEVEL 8:30 AM [facility] REPOSITORY TYPE CODE TESTS RESULT OUT OF RANGE REFERENCE UNITS LAB L501.8820 5.0-15.0 ug/mL Normal VANCO, TROUGH 12.0 Result Comment: VANCOMYCIN STANDARED DRUG THERAPY TROUGH LEVEL: 5.0 - 15.0 mg/L VANCOMYCIN HIGH INTENSITY THERAPY TROUGH LEVEL: 15.0 - 20.0 mg/L High Intensity therapy recommended for serious life threatening infections include: - Meningitis -Endocarditis -Pneumonia (Ventilator/Healtcare Associated) -Sepsis PLEASE CONTACT PHARMACY SERVICES (#[id number]) FOR INTERPRETATION OF RESULTS. Performed By: #### L501.8820 #### [facility] [address] [place], [address] ERYTHROCYTE SED RATE Collected: 01/19/2018 Status: F Source: FREEMAN 8:36 AM [facility] REPOSITORY TYPE CODE TESTS RESULT OUT OF RANGE REFERENCE UNITS LAB L102.0000 0-20 mm/hr High SED RATE 52 Performed By: #### L101.9900, L100.0100 #### [facility] [address], [address] CBC W/DIFF, AUTOMATED Collected: 01/19/2018 Status: F Source: FREEMAN 8:36 AM [facility] REPOSITORY TYPE CODE TESTS RESULT [...] 1.58 Performed By: #### L101.9900, L100.0100 #### [facility] [address] [place], [place], [address] VANCOMYCIN, TROUGH Collected: 01/19/2018 Status: F Source: FREEMAN LEVEL 8:36 AM [facility] REPOSITORY TYPE CODE TESTS RESULT OUT OF RANGE REFERENCE UNITS LAB L501.8820 5.0-15.0 ug/mL Normal VANCO, TROUGH 13.3 Result Comment: VANCOMYCIN STANDARED DRUG THERAPY TROUGH LEVEL: 5.0 - 15.0 mg/L VANCOMYCIN HIGH INTENSITY THERAPY TROUGH LEVEL: 15.0 - 20.0 mg/L High Intensity therapy recommended for serious life threatening infections include: - Meningitis -Endocarditis -Pneumonia (Ventilator/Healtcare Associated) -Sepsis PLEASE CONTACT PHARMACY SERVICES (#[id number]) FOR INTERPRETATION OF RESULTS. Performed By: #### L501.8820 #### [facility] [address] [place], [address] COMPREHENSIVE METABOLIC Collected: 01/19/2018 Status: F Source: ROHINI SOL 8:36 AM [facility] REPOSITORY TYPE CODE TESTS RESULT [...] GAP Performed By: #### L500.4050, L501.6710 #### [facility] [address] [place], [address] CRP Collected: 01/19/2018 Status: F Source: FREEMAN 8:36 AM [facility] REPOSITORY TYPE CODE TESTS RESULT OUT OF RANGE REFERENCE UNITS LAB L501.6710 0.0-3.0 mg/L High 6.55 C-REACTIVE PROT Result Comment: C-Reactive Protein (CRP) provides useful information for the diagnosis, therapy and monitoring of inflammatory processes and associated diseases. For the evaluation of Relative Risk for Cardiovascular Disease, a High Sensitivity CRP (HSCRP) should be ordered. Performed By: #### L500.4050, L501.6710 #### [facility] [address] [place], [address] CBC W/DIFF, AUTOMATED Collected: 01/12/2018 Status: F Source: FREEMAN 8:45 AM [facility] REPOSITORY TYPE CODE TESTS RESULT [...] 1.34 Performed By: #### L100.0100, L101.9900 #### [facility] [address] [place], [address] ERYTHROCYTE SED RATE Collected: 01/12/2018 Status: F Source: ROHINI 8:45 AM [facility] REPOSITORY TYPE CODE TESTS RESULT OUT OF RANGE REFERENCE UNITS LAB L102.0000 0-20 mm/hr High SED RATE 45 Performed By: #### L100.0100, L101.9900 #### [facility] [address] [place], [address] VANCOMYCIN, TROUGH Collected: 01/12/2018 Status: F Source: ROHINI LEVEL 8:45 AM [facility] REPOSITORY TYPE CODE TESTS RESULT OUT OF REFERENCE UNITS RANGE LAB L501.8820 5.0-15.0 ug/mL High VANCO, TROUGH 15.3 Result Comment: VANCOMYCIN STANDARED DRUG THERAPY TROUGH LEVEL: 5.0 - 15.0 mg/L VANCOMYCIN HIGH INTENSITY THERAPY TROUGH LEVEL: 15.0 - 20.0 mg/L High Intensity therapy recommended for serious life threatening infections include: - Meningitis -Endocarditis -Pneumonia (Ventilator/Healtcare Associated) -Sepsis PLEASE CONTACT PHARMACY SERVICES (#[id number]) FOR INTERPRETATION OF RESULTS. Performed By: #### L501.8820 #### [facility] [address] [place], [place], [address] CRP, HIGH SENSITIVITY Collected: 01/12/2018 Status: F Source: ROHINI CARDIAC 8:45 AM [facility] REPOSITORY TYPE CODE TESTS RESULT OUT OF RANGE REFERENCE UNITS LAB L501.6750 mg/L High CRP HIGH 6.89 SENS Result Comment: Low Relative Risk of CVD <1.0 mg/L Average Relative Risk of CVD 1.0 - 3.0 mg/L High Relative Risk of CVD >3.0 mg/L Performed By: #### L501.6750 #### [facility] [address] [place], [address] DISCHARGE INSTRUCTION Observed: 01/10/2018 Status: F Source: ROHINI 11:34 AM [facility] REPOSITORY [facility] Medical Records Department [address] [place] [address] Discharge Instruction 01/10/18 1133 MR#: [id number] Acct: [id number] Name: ROBLES CARRASQUILLO Rep #: [id number] : 1970 47 From: Brian Baxter MD [...] your Primary Care Provider. Call [facility] ([phone]) or report to the closest Emergency Room. Call 911 if necessary. 01/10/181133 <Electronically signed by Brian Baxter MD> Date Brian Baxter MD Cosigner Signature (If Indicated): Date CC: Eduardo Rubio DO EMERGENCY DEPARTMENT Observed: 01/10/2018 Status: F Source: ROHINI SUMMARY 11:33 AM [facility] Medical Records Department [address] [place] [address] Emergency Department Summary 01/10/18 1131 MR#: [id number] Acct: [id number] Name: ROBLES CARRASQUILLO Rep #: [id number] : 1970 47 From: Brian Baxter MD [...] obstruction, resolved This note was generated with [employer] dictation software. It may contain incorrect words, [...] your Primary Care Provider. Call [facility] ([phone]) or report to the closest Emergency Room. Call 911 if necessary. 01/10/18 1133 <Electronically signed by Brian Baxter MD> Date Brian Baxter MD Cosigner Signature (If Indicated): Date CC: Eduardo Rubio DO PLASTIC SURGERY Observed: 01/06/2018 Status: F Source: FREEMAN VISIT REPORT 11:34 AM [facility] REPOSITORY [facility] [address] [place] [address] OFFICE VISIT Date of Service: 01/02/18 MR#: [id number] Acct: [id number] Name: ROBLES CARRASQUILLO Rep #: [id number] : 1970 Provider: Sean [facility] MD Age/Sex: 47/F Location: [facility] Status: Signed Intake Vital Signs01/02/18 Height 5 ft 6 in 01/02/18 Weight: 280 lb 6 oz Intake Visit Reasons: postop surgery 12/16/17 Cylinder Machine Operator Required: No Accompanied by: Daughter Is patient [...] reconstruction with placement of submuscular saline tissue fish roe technician (800 ml) and placement DermACELL decellularized dermis [...] Gastric bypass due to severe obesity 04/10/10 [place] 158lbs loss. Incisional hernia repair 07/03/10 panniculectomy [...] reconstruction with placement of submuscular saline tissue fish roe technician (800 ml) and placement DermACELL decellularized dermis [...] PLASTIC SURGERY Observed: 01/06/2018 Status: F Source: FREEMAN VISIT REPORT 11:24 AM [facility] REPOSITORY [facility] [address] [place] [address] OFFICE VISIT Date of Service: 12/25/17 MR#: [id number] Acct: [id number] Name: ROBLES CARRASQUILLO Rep #: [id number] : 1970 Provider: Sean [facility] MD Age/Sex: 47/F Location: [facility] Status: Signed Intake Vital Signs12/25/17 Height 5 ft 6 in 12/25/17 Weight: 284 lb 2 oz Intake Visit Reasons: postop surgery 12/16/17 Cylinder Machine Operator Required: No Accompanied by: None Is patient [...] reconstruction with placement of submuscular saline tissue fish roe technician (800 ml) and placement DermACELL decellularized dermis [...] reconstruction with placement of submuscular saline tissue fish roe technician (800 ml) and placement DermACELL decellularized dermis [...] OPERATIVE REPORT Observed: 01/06/2018 Status: F Source: [place] 12:11 AM [facility] REPOSITORY [facility] Medical Records Department [address] [facility] [place] [address] Operative Report 12/16/171953 MR#: [id number] Acct: [id number] Name: ROBLES CARRASQUILLO Rep #: [id number] : 1970 47 From: Sean Stevenson MD PCP: Eduardo Rubio DO Status: DIS ALLEN Y Location: [place] [address] Report of Operation Date of Procedure: 12/16/17 Pre-Operative Diagnosis: 1. Recurrent infections bilateral breasts. 2. s/p completion mastectomy right breast. 3. Acquired absence right breast. 4. Disproportion reconstructed breasts. 5. Former smoker. 6. MRSA. Post-Operative Diagnosis: Same. Surgery/Procedure Performed:: 1st stage delayed right breast reconstruction with placement of submuscular saline tissue fish roe technician (800 ml) and placement DermACELL decellularized dermis [...] were included in a form from the [employer]. IV Fluids - 900 ml. Urine Output - 250 ml. I used [place] CPX4 with Suture Tabs, Medium Height, Breast Tissue Plant Wrapper, Textured, Integral Injection Dome (800 ml). Reference Number - [id number]. Lot Number - [id number]. Serial Number - [id number]. Expiration - December 22, 2020. I used DermACELL Decellularized Dermis Graft, (8 x 20 cm, 160 cm2). ID Number - [id number]. Code Number - [id number]. Expiration - June 14, 2021. I used Kiya absorbable hemostat. Reference Number - [id number]. Lot Number - [id number]. Expiration - July 26, 2022. felt cutter: Bubba Ramos. Type of Anesthesia:: General Specimen's [...] submuscular pocket and felt an 800 ml [place] saline tissue fish roe technician would fit the pocket adequately. The air was removed from the fish roe technician and then filled with 30 ml saline. I tested the fish roe technician for leaks for which there was none, [...] was placed in the mastectomy position. The fish roe technician was then placed in the submuscular position and secured to the chest wall through the suture tabs with 3-0 Vicryl interrupted sutures. I then placed DermACELL decellularized dermis graft into the wound and secured to the inferior aspect of the pectoralis muscle over the inferior aspect of the fish roe technician to the chest wall and secured with 3-0 Vicryl interrupted sutures. Care was taken to place a malleable to protect the fish roe technician during the placement of the sutures. The [...] drains removed in 10-14 days. Grafts/Implants Used: [place] saline tissue fish roe technician and DermACELL decellularized dermis graft. - Complications None. - Admit VTE Documentation VTE Present on Admission: No VTE Mechan Device Prophylaxis: SCD's VTE Pharm Prophylaxis ordered?: Yes Code Visit Surgery Charges CPT - 37690 ICD-10 - N61.1, Z90.11, N65.1, Z86.14, Z87.891 43696 N61.1, Z90.11, N65.1, Z86.14, Z87.891 01/06/18 0011 <Electronically signed by Sean Stevenson MD> Date Sean Stevenson MD CC: Jonn Pedroza MD; Sean Stevenson MD; Eduardo Rubio DO Signed CBC W/DIFF, AUTOMATED Collected: 01/05/2018 Status: F Source: R[place] 8:36 AM [facility] REPOSITORY TYPE CODE TESTS RESULT [...] 1.26 Performed By: #### L100.0100, L101.9900 #### [facility] [address] [place], [place], [address] ERYTHROCYTE SED RATE Collected: 01/05/2018 Status: F Source: [place] 8:36 AM [facility] REPOSITORY TYPE CODE TESTS RESULT OUT OF RANGE REFERENCE UNITS LAB L102.0000 0-20 mm/hr High SED RATE 42 Performed By: #### L100.0100, L101.9900 #### [facility] [address] [place], [place], [address] VANCOMYCIN, TROUGH Collected: 01/05/2018 Status: F Source: [facility] 8:36 AM [facility] REPOSITORY TYPE CODE TESTS RESULT OUT OF RANGE REFERENCE UNITS LAB L501.8820 5.0-15.0 ug/mL Normal VANCO, TROUGH 11.8 Result Comment: VANCOMYCIN STANDARED DRUG THERAPY TROUGH LEVEL: 5.0 - 15.0 mg/L VANCOMYCIN HIGH INTENSITY THERAPY TROUGH LEVEL: 15.0 - 20.0 mg/L High Intensity therapy recommended for serious life threatening infections include: - Meningitis -Endocarditis -Pneumonia (Ventilator/Healtcare Associated) -Sepsis PLEASE CONTACT PHARMACY SERVICES (#[id number]) FOR INTERPRETATION OF RESULTS. Performed By: #### L501.8820 #### [facility] [address] [place], [place], [address] COMPREHENSIVE METABOLIC Collected: 01/05/2018 Status: F Source: [place] PROFIL 8:36 AM [facility] REPOSITORY TYPE CODE TESTS RESULT [...] GAP Performed By: #### L500.4050, L501.6710 #### [facility] [place], [address] CRP Collected: 01/05/2018 Status: F Source: [place] 8:36 AM [facility] REPOSITORY TYPE CODE TESTS RESULT OUT OF RANGE REFERENCE UNITS LAB L501.6710 0.0-3.0 mg/L High 6.47 C-REACTIVE PROT Result Comment: C-Reactive Protein (CRP) provides useful information for the diagnosis, therapy and monitoring of inflammatory processes and associated diseases. For the evaluation of Relative Risk for Cardiovascular Disease, a High Sensitivity CRP (HSCRP) should be ordered. Performed By: #### L500.4050, L501.6710 #### [facility] [address] [place], [address] CBC W/DIFF, AUTOMATED Collected: 12/29/2017 Status: F Source: [place] 8:34 AM [facility] REPOSITORY TYPE CODE TESTS RESULT [...] 1.83 Performed By: #### L100.0100, L101.9900 #### [facility] [address] [place], [place], [address] ERYTHROCYTE SED RATE Collected: 12/29/2017 Status: F Source: [place] 8:34 AM [facility] REPOSITORY TYPE CODE TESTS RESULT OUT OF RANGE REFERENCE UNITS LAB L102.0000 0-20 mm/hr High SED RATE 49 Performed By: #### L100.0100, L101.9900 #### [facility] [address] [place], [place], [address] VANCOMYCIN, TROUGH Collected: 12/29/2017 Status: F Source: [facility] 8:34 AM [facility] REPOSITORY TYPE CODE TESTS RESULT OUT OF RANGE REFERENCE UNITS LAB L501.8820 5.0-15.0 ug/mL Normal VANCO, TROUGH 13.5 Result Comment: VANCOMYCIN STANDARED DRUG THERAPY TROUGH LEVEL: 5.0 - 15.0 mg/L VANCOMYCIN HIGH INTENSITY THERAPY TROUGH LEVEL: 15.0 - 20.0 mg/L High Intensity therapy recommended for serious life threatening infections include: - Meningitis -Endocarditis -Pneumonia (Ventilator/Healtcare Associated) -Sepsis PLEASE CONTACT PHARMACY SERVICES (#[id number]) FOR INTERPRETATION OF RESULTS. Performed By: #### L501.8820 #### [facility] [address] [place], [place], [address] COMPREHENSIVE METABOLIC Collected: 12/29/2017 Status: F Source: [place] PROFIL 8:34 AM [facility] REPOSITORY TYPE CODE TESTS RESULT [...] 9 Performed By: #### L500.4050, L501.6710 #### [facility] [address] [place], [place], [address] CRP Collected: 12/29/2017 Status: F Source: [place] 8:34 AM [facility] REPOSITORY TYPE CODE TESTS RESULT OUT OF RANGE REFERENCE UNITS LAB L501.6710 0.0-3.0 mg/L High 6.93 C-REACTIVE PROT Result Comment: C-Reactive Protein (CRP) provides useful information for the diagnosis, therapy and monitoring of inflammatory processes and associated diseases. For the evaluation of Relative Risk for Cardiovascular Disease, a High Sensitivity CRP (HSCRP) should be ordered. Performed By: #### L500.4050, L501.6710 #### [facility] [address] [facility] [place], [place], [address] CBC-COMPLETE BLOOD CNT Collected: 12/22/2017 Status: F Source: [place] NO DIFF 9:24 AM [facility] REPOSITORY TYPE CODE TESTS RESULT [...] 9.7 Performed By: #### L100.0500, L101.9900 #### [facility] [address] [facility] [place], [place], [address] ERYTHROCYTE SED RATE Collected: 12/22/2017 Status: F Source: [place] 9:24 AM [facility] REPOSITORY TYPE CODE TESTS RESULT OUT OF RANGE REFERENCE UNITS LAB L102.0000 0-20 mm/hr High SED RATE 67 Performed By: #### L100.0500, L101.9900 #### [facility] [address] [facility] [place], [place], [address] VANCOMYCIN, TROUGH Collected: 12/22/2017 Status: F Source: [place] LEVEL 9:24 AM [facility] REPOSITORY TYPE CODE TESTS RESULT OUT OF RANGE REFERENCE UNITS LAB L501.8820 5.0-15.0 ug/mL Normal VANCO, TROUGH 11.1 Result Comment: VANCOMYCIN STANDARED DRUG THERAPY TROUGH LEVEL: 5.0 - 15.0 mg/L VANCOMYCIN HIGH INTENSITY THERAPY TROUGH LEVEL: 15.0 - 20.0 mg/L High Intensity therapy recommended for serious life threatening infections include: - Meningitis -Endocarditis -Pneumonia (Ventilator/Healtcare Associated) -Sepsis PLEASE CONTACT PHARMACY SERVICES (#[id number]) FOR INTERPRETATION OF RESULTS. Performed By: #### L501.8820 #### [facility] [address] [place], [address] COMPREHENSIVE METABOLIC Collected: 12/22/2017 Status: F Source: [facility] 9:24 AM [facility] REPOSITORY TYPE CODE TESTS RESULT [...] 8 Performed By: #### L500.4050, L501.6710 #### [facility] [address] [facility] [place], [address] CRP Collected: 12/22/2017 Status: F Source: [place] 9:24 AM [facility] REPOSITORY TYPE CODE TESTS RESULT OUT OF RANGE REFERENCE UNITS LAB L501.6710 0.0-3.0 mg/L High 14.00 C-REACTIVE PROT Result Comment: C-Reactive Protein (CRP) provides useful information for the diagnosis, therapy and monitoring of inflammatory processes and associated diseases. For the evaluation of Relative Risk for Cardiovascular Disease, a High Sensitivity CRP (HSCRP) should be ordered. Performed By: #### L500.4050, L501.6710 #### [facility] [address] [facility] [place], [address] DISCHARGE INSTRUCTION Observed: 12/18/2017 Status: F Source: [place] 8:42 PM [facility] REPOSITORY [facility] Medical Records Department [address] [place] [address] Instructions for Home/Discharge Instructions 12/18/172028 MR#: [id number] Acct: [id number] Name: ROBLES CARRASQUILLO Rep #: [id number] : 1970 47 From: Sean Stevenson MD [...] Patient to go to the lab at [facility] qMonday for 6 weeks to get CBC, CMP, ESR, CRP, and Vancomycin Trough. Pharmacy to dose. Please fax results also to [phone]. Allergies/Adverse Reactions: Allergies codeine Allergy (Verified 12/03/17 [...] Status: F Source: [place] LEVEL 7:35 AM [facility] REPOSITORY Order Comment: Time Medication is to [...] (Ventilator/Healtcare Associated) -Sepsis PLEASE CONTACT PHARMACY SERVICES (#[id number]) FOR INTERPRETATION OF RESULTS. Performed By: #### L501.8820 #### [facility] [address] [place], [address] HISTORY AND PHYSICAL Observed: 12/18/2017 Status: F Source: [place] EXAM 1:29 AM [facility] REPOSITORY [facility] Medical Records Department [address] [place] [address] History and Physical 12/15/17 2200 MR#: [id number] Acct: [id number] Name: ROBLES CARRASQUILLO Rep #: [id number] : 1970 47 From: Sean Stevenson MD PCP: Eduardo Rubio, DO Status: REG [facility] [place] Location: [facility] [id number] History and Physical Date of Admission: 12/16/17 [...] She is interested in a saline tissue fish roe technician followed by replacement cohesive gel implant. Autogenous [...] proceeding with placement of a saline tissue fish roe technician at this time. She understands that with [...] I will proceed with the saline tissue fish roe technician next month because of her recent MRSA [...] were included in a form from the [employer] [employer]. Will check a [...] F Source: [place] NO DIFF 5:33 AM [facility] REPOSITORY TYPE CODE TESTS RESULT [...] MPV 10.1 Performed By: #### L100.0500 #### [facility] [address] [place], [address] BASIC METABOLIC Collected: 12/17/2017 Status: F Source: R[place] PROFILE (BMP) 5:33 AM [facility] REPOSITORY TYPE CODE TESTS RESULT [...] Normal 6 Performed By: #### L500.2500 #### [facility] [address] [facility] [place], [place], [address] MRSA WOUND DNA BY Collected: 12/16/2017 Status: F Source: R[place] PCR 12:00 AM [facility] REPOSITORY Order Comment: Has pt arrived? Y Comments: RIGHT BREAST TISSUE Specimen Source? RIGHT BREAST TISSUE TYPE CODE TESTS RESULT OUT OF RANGE REFERENCE UNITS LAB L8200.1100 Negative Normal MRSA Negative RESULT LAB L8200.1150 Negative Normal SA RESULT NEGATIVE Performed By: #### L8200.1075 #### [facility] [address] [place], [address] Observed: 12/16/2017 Status: F Source: [place] CULTURE, DEEP WOUND 12:00 AM [facility] REPOSITORY Order Date: 04/30/17 Has pt arrived? Y Comments: RIGHT BREAST TISSUE Gram Stain Gram Stain Rare Red Blood Cells No organisms seen Wound Culture No growth aerobically. Cult, Anaerobic No growth in 5 days. Performed By: #### M100.1500 #### [facility] [address] [place], [address] BREAST BIOPSY Observed: 12/16/2017 Status: F Source: ROH[place]I (CHOOSE SITE) 12:00 AM [facility] REPOSITORY Patient: ROBLES CARRASQUILLO : 1970 (47/F) Acct Num: [id number] Phys: Graham SANZ,Sean Unit Num: [id number] Loc: MS2 [id number] Specimen: [id number] Received: 12/16/171456 Spec Type: BREAST BX TISSUES TISSUES: Right [...] sections do not reveal any mass lesion. Asset Accountant sections are submitted in four cassettes. / SJ:latha 12/16/17 TC: 3 CPT: 08986 HEADER OPERATION: Right breast reconstruction, delayed first stage, placement PRE-OP DIAGNOSIS: Acquired absence right breast, S/P completion mastectomy right breast TISSUE SUBMITTED: Right breast tissue MICROSCOPIC DESCRIPTION Slides are reviewed. MICROSCOPIC DIAGNOSIS Right breast tissue, excision: Dermal fibrosis with mild chronic inflammation consistent with scar. Focal intradermal inclusion cyst. No evidence of malignancy. AM:latha 12/17/17 Signed [facility] 12/17/17 <signature on file> Performed By: #### PBRBX #### [facility] [address] [place], [address] Observed: 12/16/2017 Status: F Source: [place] CULTURE, FUNGUS W/ 12:00 AM [facility] [id number] REPOSITORY Comments: RIGHT BREAST TISSUE Has pt arrived? Y Is this test to exclude patient from TB Isolation? N Cu,Beuebu5552 TESTING PERFORMED AT [facility]. ORIGINAL REPORT ON FILE IN LAB CONTAINS ADDITIONAL TEST SITE INFORMATION. CUF No yeast or mold isolated after [address] TESTING PERFORMED AT [facility]. ORIGINAL REPORT ON FILE IN LAB CONTAINS ADDITIONAL TEST SITE INFORMATION. Fungus Stain No yeast or mold observed. Performed By: #### M600.1900 #### [facility] [address] [place], [address] CBC-COMPLETE BLOOD CNT Collected: 12/15/2017 Status: F Source: [place] NO DIFF 12:08 PM [facility] REPOSITORY TYPE CODE TESTS RESULT [...] By: #### L100.0500, L500.2500, L501.9520, L506.0500 #### [facility] [address] [facility] [place], [address] BASIC METABOLIC Collected: 12/15/2017 Status: F Source: [place] PROFILE (BMP) 12:08 PM [facility] REPOSITORY TYPE CODE TESTS RESULT [...] By: #### L100.0500, L500.2500, L501.9520, L506.0500 #### [facility] [address] [facility] [place], [address] THYROID STIM HORMONE Collected: 12/15/2017 Status: F Source: [place] (TSH) 12:08 PM [facility] REPOSITORY TYPE CODE TESTS RESULT OUT OF RANGE REFERENCE UNITS LAB L501.9520 0.358-3.74 uIU/mL Normal TSH 1.25 Performed By: #### L100.0500, L500.2500, L501.9520, L506.0500 #### [facility] [address] [place], [address] PREALBUMIN Collected: 12/15/2017 Status: F Source: [place] 12:08 PM [facility] REPOSITORY TYPE CODE TESTS RESULT OUT OF RANGE REFERENCE UNITS LAB L506.0500 20.0-40.0 mg/dL Normal PREALBUMIN 34.8 Performed By: #### L100.0500, L500.2500, L501.9520, L506.0500 #### [facility] [address] [facility] 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 Incisional hernia repair 07/03/10 panniculectomy [...] She is interested in a saline tissue fish roe technician followed by replacement cohesive gel implant. Autogenous [...] proceeding with placement of a saline tissue fish roe technician at this time. She understands that with [...] I will proceed with the saline tissue fish roe technician next month because of her recent MRSA [...] were included in a form from the [employer]. Will check a [...] F Source: [place] VISIT REPORT 8:10 AM [facility] REPOSITORY [facility] [address] [address] OFFICE VISIT Date of Service: 10/08/17 MR#: [id number] Acct: [id number] Name: ROBLES CARRASQUILLO Rep #: [id number] : 1970 Provider: Sean [facility] MD Age/Sex: 47/F Location: [facility] Status: Signed Intake Vital Signs10/08/17 Height 5 ft 6 in 10/08/17 Weight: 263 lb 4 oz Intake Visit Reasons: evaluation breast reconstruction Cylinder Machine Operator Required: No Accompanied by: None Is patient [...] She is interested in a saline tissue fish roe technician followed by replacement cohesive gel implant. Autogenous [...] proceeding with placement of a saline tissue fish roe technician at this time. She understands that with [...] would consider proceeding with the saline tissue fish roe technician in a couple of months because of [...] CODE NAME / CODE REACTION SEVERITY SOURCE 10/21/2018 Drug NSAIDS Other Unknown [place] Allergy/416 (Non-Steroidal Community 928281(SNOM Anti-Inflamma/F001 Hospital ED CT) 233979(RXNORM) Repository 10/21/2018 Drug Penicillins/V44870 Rash Unknown [facility] Allergy/416 0476(RXNORM) Community 473659([facility] ED CT) Repository 10/21/2018 Drug codeine/[id number] Rash Unknown [place] Allergy/416 (RXNORM) [facility] 922803([facility] ED CT) Repository 07/18/2006 DRUG NAPROXEN SODIUM GI UPSET [facility] INGREDI/[address] [place] 796916(SNOM Repository ED CT) 07/18/2006 DRUG CODEINE RASH [facility] INGREDI/[address] [place] 673747(SNOM Repository ED CT) 07/18/2006 Drug PENICILLINS HIVES [facility] Class/11176 [facility] [place] 1003(SNOMED Repository CT) ENCOUNTERS ENCOUNTERS ADMIT/DISCHARGE ACCOUNT ADMITTING ENCOUNTER LOCATION SOURCE NUMBER CLASS 10/21/2018/10/21/19 [id number] Ambulatory BMSBuilding:B [place] 19 [place].[facility] Repository 10/20/2018 [id number] Ambulatory [facility] Hospital ing:[facility] Repository 10/20/2018 [id number] Ambulatory [facility] Hospital ing:LAB Repository 10/14/2018/10/14/19 [id number] Ambulatory BMSBuilding:B [place] 19 [place].[facility] Repository 10/13/2018 [id number] Ambulatory [facility] Hospital ing: Repository 10/09/2018 [id number] Ambulatory [facility] Hospital ing: Repository 10/07/2018/10/07/19 [id number] Ambulatory BMSBuilding:B [place] 19 [place].[facility] Repository 10/01/2018/10/01/19 [id number] Ambulatory BMSBuilding:B [place] 19 [place].[facility] Repository 09/28/2018 [id number] Ambulatory [facility] Hospital ing:LAB Repository 09/25/2018/09/25/20 [id number] Ambulatory BMSBuilding:B [place] 18 [place].[facility] Repository 09/21/2018/09/21/20 [id number] Ambulatory [address] Hospital ing:LAB Repository 09/17/2018/09/17/20 [id number] Ambulatory BMSBuilding:B [place] 18 [place].[facility] Repository 09/09/2018 [id number] Sean Stevenson Ambulatory BMSBuilding:B [place].[facility] Repository 09/09/2018 [id number] Sean Stevenson Ambulatory BMSBuilding:B [place].[facility] Repository 09/09/2018 [id number] Sean Stevenson Ambulatory BMSBuilding:B [place].[facility] Repository 09/09/2018 [id number] Sean Stevenson Ambulatory BMSBuilding:[place].CF.[facility] Repository 09/09/2018/09/10/20 [id number] Sean [facility] Inpatient [address] ing:JV3Iswt: Repository IA780Sap: 1 08/31/2018/09/28/20 [id number] [address] Hospital ing: Repository 08/28/2018 [id number] Ambulatory [facility] 08/24/2018 [id number] Ambulatory BMSBuilding:B [place].CF.[facility] Repository 08/24/2018/08/28/20 [id number] Ambulatory [address] Hospital ing: Repository 08/17/2018 [id number] Ambulatory BMSBuilding:B [place].[facility] Repository 08/10/2018 [id number] Ambulatory BMSBuilding:B [place].[facility] Repository 08/03/2018 [id number] Ambulatory BMSBuilding:B [place].[facility] Repository 07/27/2018 [id number] Ambulatory BMSBuilding:B [place].[facility] Repository 07/27/2018/07/29/20 [id number] Ambulatory [address] Hospital ing: Repository 07/20/2018 [id number] Ambulatory BMSBuilding:B [place].[facility] Repository 07/13/2018 [id number] Ambulatory BMSBuilding:B [place].[facility] Repository 07/06/2018 [id number] Ambulatory BMSBuilding:B [place].[facility] Repository 07/01/2018/07/01/20 [id number] Ambulatory BMSBuilding:B [place] 18 MS.[facility] Repository 06/29/2018 [id number] Ambulatory BMSBuilding:B [place].[facility] Repository 06/29/2018/06/29/20 [id number] Ambulatory [address] ing:LAB Repository 06/22/2018/06/28/20 [id number] Ambulatory [address] ing:[facility] Repository 06/15/2018 [id number] Ambulatory BMSBuilding:B Rohini MS.CF.[facility] Repository 06/15/2018/06/28/20 [id number] Ambulatory [address] ing: Repository 06/04/2018/06/04/20 [id number] Ambulatory BMSBuilding:B Rohini 18 MS.[facility] Repository 05/27/2018/05/29/20 [id number] Ambulatory [address] ing:[facility] Repository 05/26/2018/05/28/20 [id number] Ambulatory [address] Repository 05/19/2018/05/21/20 [id number] Sean Stevenson Inpatient [address] ing:KI7Ovnk: Repository MR357Niz: 1 05/19/2018 [id number] Sean Stevenson Ambulatory BMSBuilding:B Rohini MS.[facility] Repository 05/19/2018 [id number] Sean Stevenson Ambulatory BMSBuilding:B Rohini MS.[facility] Repository 05/19/2018 [id number] Sean Stevenson Ambulatory BMSBuilding:B Rohini MS.CF.[facility] Repository 05/19/2018 [id number] Ambulatory BMSBuilding:B Rohini MS.CF.[facility] Repository 05/19/2018/05/19/20 [id number] Ambulatory BMSBuilding:B Stevenson 18 MS.[facility] Repository 05/12/2018/05/12/20 [id number] Ambulatory BMSBuilding:B Rohini 18 MS.[facility] Repository 05/08/2018 [id number] Ambulatory [facility] Hospital ing:MEDOUTP Repository 05/05/2018/05/07/20 [id number] Sean Stevenson Inpatient Stevenson Rohini 18 [facility] Hospital ing:KI1Fuuz: Repository [id number]: 1 05/05/2018 [id number] Sean Stevenson Ambulatory BMSBuilding:B Stevenson MS.CF.[facility] Repository 05/05/2018 [id number] Sean Stevenson Ambulatory BMSBuilding:B Rohini MS.CF.[facility] Repository 04/27/2018 [id number] [facility] ing:MTLAB Repository 04/14/2018 [id number] [facility] ing:PAT Repository 03/12/2018 [id number] Ambulatory [facility] Hospital ing:LABSPEC Repository 03/12/2018/03/12/20 [id number] Ambulatory BMSBuilding:B Stevenson 18 MS.[facility] Repository 02/25/2018/02/26/20 [id number] Ambulatory BMSBuilding:B Rohini 18 MS.[facility] Repository 02/11/2018/02/12/20 [id number] Ambulatory BMSBuilding:B Rohini 18 MS.[facility] Repository 02/04/2018/02/05/20 [id number] Ambulatory BMSBuilding:B Stevenson 18 MS.[facility] Repository 02/02/2018 [id number] [facility] ing:MEDOUTP Repository 01/26/2018 [id number] [facility] ing:MEDOUTP Repository 01/19/2018 [id number] [facility] ing:MEDOUTP Repository 01/16/2018/01/17/20 [id number] Ambulatory BMSBuilding:B Stevenson 18 MS.[facility] Repository 01/12/2018 [id number] Ambulatory [facility] Hospital ing:MEDOUTP Repository 01/10/2018/01/11/20 [id number] Emergency [address] HospitalBuild Hospital ing:ED Repository 01/06/2018/01/07/20 [id number] Ambulatory BMSBuilding:B Rohini 18 MS.[facility] Repository 01/05/2018 [id number] Ambulatory [facility] Hospital ing:MEDOUTP Repository 01/02/2018/01/03/20 [id number] Ambulatory BMSBuilding:B Rohini 18 MS.[facility] Repository 01/02/2018 [id number] Ambulatory [facility] Hospital ing:MEDOUTP Repository 12/29/2017 [id number] Ambulatory [facility] Hospital ing:MEDOUTP Repository 12/25/2017/12/26/19 [id number] Ambulatory BMSBuilding:B Rohini 18 MS.[facility] Repository 12/22/2017 [id number] Ambulatory [facility] Hospital ing:MEDOUTP Repository 12/17/2017/12/19/19 [id number] Sean Stevenson Ambulatory [address] HospitalBuild Hospital ing:XQ0Afka: Repository QR514Vsy: 1 12/17/2017 [id number] Sean Stevenson Ambulatory BMSBuilding:B Stevenson MS.CF.[facility] Repository 12/15/2017 [id number] Ambulatory BMSBuilding:B Rohini MS.CF.[facility] Repository 11/12/2017/11/12/19 [id number] Ambulatory BMSBuilding:B Stevenson 18 MS.[facility] Repository 10/30/2017 [id number] Ambulatory BMS [facility] Repository 10/08/2017/10/08/19 [id number] Ambulatory BMSBuilding:B Stevenson 18 MS.[facility] Repository PAYERS PAYERS ENCOUNTER GUARANTOR PAYER SUBSCRIBER SOURCE 10/21/2018 ROBLES Hyde Primary ROBLES Nova [id number] FRIAR Insurance:MEDICARE HOVINGDOB: [facility], [facility] A [facility] [id number] [facility] [address]683Wcj: Number: Repository [id number] (HP) Date:2018-10-14 10/21/2018 Secondary ROBLES Hyde Stevenson Insurance:MEDICAIDPol HOVINGDOB: [facility] icy Number: [id number] Hospital [id number] Repository Date:2018-10-14 10/21/2018 Tertiary NOT GIVENUNK Stevenson Insurance:SELF PAY [facility] Number: Effective Repository Date:2018-10-21 10/20/2018 ROBLES Hyde Primary ROBLES Nova [id number] FRIAR Insurance:MEDICARE HOVINGDOB: [facility], PART A [facility] [id number] Memorial Hospital 16460Gzr: Number: Repository [id number] (HP) Date:2018-10-20 10/20/2018 Secondary ROBLES Hyde Rohini Insurance:MEDICAIDPol HOVINGDOB: [facility] icy Number: [id number] Hospital [id number] Repository Date:2018-10-20 10/20/2018 Tertiary NOT GIVENUNK Rohini Insurance:SELF PAY [facility] Number: Effective Repository Date:2018-10-20 10/20/2018 ROBLES Hyde Primary ROBLES Nova [id number] FRIAR Insurance:MEDICARE HOVINGDOB: [facility], PART A [facility] [id number] Memorial Hospital [address]508Qse: Number: Repository [id number] (HP) Date:2018-09-28 10/20/2018 Secondary ROBLES Hyde Stevenson Insurance:MEDICAIDPol HOVINGDOB: [facility] icy Number: [id number] Hospital [id number] Repository Date:2018-09-28 10/20/2018 Tertiary NOT GIVENUNK Rohini Insurance:SELF PAY [facility] Number: Effective Repository Date:2018-09-28 10/14/2018 ROBLES Hyde Primary ROBLES Borjasoster [id number] FRIAR Insurance:MEDICARE HOVINGDOB: [facility], PART A [facility] [id number] Memorial Hospital 30752Jmj: Number: Repository [id number] () Date:2018-10-07 10/14/2018 Secondary ROBLES Hyde Stevenson Insurance:MEDICAIDPol HOVINGDOB: [facility] icy Number: [id number] Hospital [id number] Repository Date:2018-10-07 10/14/2018 Tertiary NOT GIVENUNK Rohini Insurance:SELF PAY [facility] Number: Effective Repository Date:2018-10-12 10/13/2018 ROBLES Hyde Primary ROBLES Borjasoster [id number] FRIAR Insurance:MEDICARE HOVINGDOB: [facility], PART A [facility] [id number] Memorial Hospital [address]Vbe: Number: Repository [id number] (HP) Date:2018-10-07 10/13/2018 Secondary ROBLES Hyde Stevenson Insurance:MEDICAIDPol HOVINGDOB: [facility] ic Number: [id number] Hospital [id number] Repository Date:2018-10-07 10/13/2018 Tertiary NOT GIVENUNK Rohini Insurance:SELF PAY [facility] Number: Effective Repository Date:2018-10-07 10/09/2018 ROBLES Hyde Primary NOT GIVENUNK Rohini [id number] FRIAR Insurance:SELF PAY [facility] [place] [address]Oxy: Number: Effective Repository Date:2018-09-29 () 10/07/2018 ROBLES Hyde Primary ROBLES Borjasoster [id number] FRIAR Insurance:MEDICARE HOVINGDOB: [facility], PART A [address]04-17[facility] [address]Mme: Number: Repository [id number] () Date:2018-10-01 10/07/2018 Secondary ROBLES Hyde Stevenson Insurance:MEDICAIDPol HOVINGDOB: Community icy Number: [id number] Hospital [id number] Repository Date:2018-10-01 10/07/2018 Tertiary NOT GIVENUNK Rohini Insurance:SELF PAY [facility]: Effective Repository Date:2018-10-07 10/01/2018 ROBLES Hyde Primary ROBLES Nova [id number] FRIAR Insurance:MEDICARE HOVINGDOB: [facility], PART A [facility] [id number] Memorial Hospital [address]171Jqf: Number: Repository [id number] (HP) Date:2018-09-25 10/01/2018 Secondary ROBLES Borjasoster Insurance:MEDICAIDPol HOVINGDOB: [facility] ic Number: [id number] Hospital [id number] Repository Date:2018-09-25 10/01/2018 Tertiary NOT GIVENUNK Rohini Insurance:SELF PAY [facility] Number: Effective Repository Date:2018-09-28 09/28/2018 ROBLES Hyde Primary ROBLES Nova [id number] FRIAR Insurance:MEDICARE HOVINGDOB: [facility], PART A [facility] [id number] Memorial Hospital [address]44Hsy: Number: Repository [id number] (HP) Date:2018-09-28 09/28/2018 Secondary ROBLES Hyde Stevenson Insurance:MEDICAIDPol HOVINGDOB: [facility] Number: [id number] Hospital [id number] Repository Date:2018-09-28 09/28/2018 Tertiary NOT GIVENUNK Rohini Insurance:SELF PAY [facility] Number: Effective Repository Date:2018-09-28 09/25/2018 ROBLES Hyde Primary ROBLES Nova [id number] FRIAR Insurance:MEDICARE [facility] [id number] Memorial Hospital 6[address]26Gdv: Number: Repository [id number] (HP) Date:2018-09-17 09/25/2018 Secondary ROBLES Hyde Stevenson Insurance:MEDICAIDPol HOVINGDOB: [facility] icy Number: [id number] Hospital [id number] Repository Date:2018-09-17 09/25/2018 Tertiary NOT GIVENUNK Stevenson Insurance:SELF PAY [facility] Number: Effective Repository Date:2018-09-25 09/21/2018 ROBLES Nova [id number] FRIAR Insurance:CARESOURCEP HOVINGDOB: [facility] Number: [id number] Memorial Hospital [address]Bww: [id number] Repository Date:2018-05-11 O () [address]ATTN: [place] [address]WA: 09/21/2018 Secondary NOT GIVENUNK Rohini Insurance:SELF PAY [facility] Number: Effective Repository Date:2018-06-30 09/17/2018 ROBLES Hyde Primary ROBLES Nova [id number] FRIAR Insurance:MEDICARE HOVINGDOB: [facility], PART A [facility] [id number] Memorial Hospital [address]Wfg: Number: Repository [id number] () Date:2018-09-14 09/17/2018 Secondary ROBLES Nova Insurance:MEDICAIDPol HOVINGDOB: [facility] ic Number: [id number] Hospital [id number] Repository Date:2018-09-14 09/17/2018 Tertiary NOT GIVENUNK Stevenson Insurance:SELF PAY [facility] Number: Effective Repository Date:2018-09-17 09/09/2018 ROBLES Hyde Primary ROBLES Nova [id number] FRIAR Insurance:MEDICARE HOVINGDOB: [facility], PART A [facility] [id number] Memorial Hospital [address]Kyu: Number: Repository [id number] () Date:2018-08-28 09/09/2018 Secondary ROBLES Borjasoster Insurance:MEDICAIDPol HOVINGDOB: [facility] icy Number: [id number] Hospital [id number] Repository Date:2018-08-28 09/09/2018 Tertiary NOT GIVENUNK Rohini Insurance:SELF PAY [facility]: Effective Repository Date:2018-09-07 09/09/2018 ROBLES Hyde Primary ROBLES Nova [id number] FRIAR Insurance:MEDICARE HOVINGDOB: [facility], PART A [facility] [id number] Memorial Hospital [address]Xqo: Number: Repository [id number] (HP) Date:2018-08-28 09/09/2018 Secondary ROBLES Nova Insurance:MEDICAIDPol HOVINGDOB: [facility] icy Number: [id number] Hospital [id number] Repository Date:2018-08-28 09/09/2018 Tertiary NOT GIVENUNK Rohini Insurance:SELF PAY [facility] Number: Effective Repository Date:2018-09-08 09/09/2018 ROBLES Hyde Primary ROBLES Nova [id number] FRIAR Insurance:MEDICARE HOVINGDOB: [facility], PART A [facility] [id number] Memorial Hospital [address]Ucf: Number: Repository [id number] (HP) Date:2018-08-28 09/09/2018 Secondary ROBLES Nova Insurance:MEDICAIDPol HOVINGDOB: [facility] icy Number: [id number] Hospital [id number] Repository Date:2018-08-28 09/09/2018 Tertiary NOT GIVENUNK Rohini Insurance:SELF PAY [facility] Number: Effective Repository Date:2018-09-09 09/09/2018 ROBLES Hyde Primary ROBLES Nova [id number] FRIAR Insurance:MEDICARE HOVINGDOB: [facility], PART A [facility] [id number] Memorial Hospital [address]878Bdg: Number: Repository [id number] (HP) Date:2018-08-28 09/09/2018 Secondary ROBLES Hyde Rohini Insurance:MEDICAIDPol HOVINGDOB: Community icy Number: [id number] Hospital [id number] Repository Date:2018-08-28 09/09/2018 Tertiary NOT GIVENUNK Stevenson Insurance:SELF PAY [facility] Number: Effective Repository Date:2018-09-09 09/09/2018 ROBLES Hyde Primary ROBLES Nova [id number] FRIAR Insurance:MEDICARE HOVINGDOB: [facility] [place], PART A [facility] [id number] Memorial Hospital [address]Zqc: Number: Repository [id number] (HP) Date:2018-08-28 09/09/2018 Secondary ROBLES Nova Insurance:MEDICAIDPol HOVINGDOB: Community icy Number: [id number] Hospital [id number] Repository Date:2018-08-28 09/09/2018 Tertiary NOT GIVENUNK Rohini Insurance:SELF PAY [facility] Number: Effective Repository Date:2018-08-28 08/31/2018 ROBLES Hyde Primary ROBLES Nova [id number] FRIAR Insurance:MEDICARE HOVINGDOB: Community [place], PART A [facility] [id number] Memorial Hospital [address]Zez: Number: Repository [id number] (HP) Date:2018-08-29 08/31/2018 Secondary ROBLES Nova Insurance:MEDICAIDPol HOVINGDOB: Community icy Number: [id number] Hospital [id number] Repository Date:2018-08-29 08/31/2018 Tertiary NOT GIVENUNK Stevenson Insurance:SELF PAY [facility] Number: Effective Repository Date:2018-08-29 08/28/2018 ROBLES Hyde Primary ROBLES Nova [id number] FRIAR Insurance:MEDICARE HOVINGDOB: Community [place], PART A [facility] [id number] [place] [address]Gyp: Number: Repository [id number] (HP) Date:2018-08-25 08/28/2018 Secondary ROBLES Borajsoster Insurance:MEDICAIDPol HOVINGDOB: Community icy Number: [id number] Hospital [id number] Repository Date:2018-08-25 08/28/2018 Tertiary NOT GIVENUNK Stevenson Insurance:SELF PAY [facility] Number: Effective Repository Date:2018-08-25 08/24/2018 ROBLES Hyde Primary ROBLES Nova [id number] FRIAR Insurance:MEDICARE HOVINGDOB: Community [place], PART A [facility] [id number] Memorial Hospital [address]266Hkp: Number: Repository [id number] (HP) Date:2018-06-29 08/24/2018 Secondary ROBLES Hyde Stevenson Insurance:MEDICAIDPol HOVINGDOB: Community icy Number: [id number] Hospital [id number] Repository Date:2018-06-29 08/24/2018 Tertiary NOT GIVENUNK Stevenson Insurance:SELF PAY [facility] Number: Effective Repository Date:2018-08-24 08/24/2018 ROBLES Hyde Primary ROBLES Nova [id number] FRIAR Insurance:MEDICARE HOVINGDOB: Community [place], PART A [facility] [id number] Memorial Hospital [address]Sxv: Number: Repository [id number] (HP) Date:2018-06-29 08/24/2018 Secondary ROBLES Hyde Rohini Insurance:MEDICAIDPol HOVINGDOB: Community icy Number: [id number] Hospital [id number] Repository Date:2018-06-29 08/24/2018 Tertiary NOT GIVENUNK Stevenson Insurance:SELF PAY [facility] Number: Effective Repository Date:2018-07-30 08/17/2018 ROBLES Hyde Primary ROBLES Nova [id number] FRIAR Insurance:MEDICARE HOVINGDOB: Community [place], PART A [facility] [id number] Memorial Hospital 215[address]Zwe: Number: Repository [id number] (HP) Date:2018-06-29 08/17/2018 Secondary ROBLES Hyde Rohini Insurance:MEDICAIDPol HOVINGDOB: Community icy Number: [id number] Hospital [id number] Repository Date:2018-06-29 08/17/2018 Tertiary NOT GIVENUNK Rohini Insurance:SELF PAY [facility] Number: Effective Repository Date:2018-08-17 08/10/2018 ROBLES Hyde Primary ROBLES Borjasoster [id number] FRIAR Insurance:MEDICARE HOVINGDOB: Community [place], PART A [facility] [id number] Memorial Hospital [address]Ept: Number: Repository [id number] (HP) Date:2018-06-29 08/10/2018 Secondary ROBLES Hyde Rohini Insurance:MEDICAIDPol HOVINGDOB: Community icy Number: [id number] Hospital [id number] Repository Date:2018-06-29 08/10/2018 Tertiary NOT GIVENUNK Stevenson Insurance:SELF PAY [facility] Number: Effective Repository Date:2018-08-10 08/03/2018 ROBLES Hyde Primary ROBLES Borjasoster [id number] FRIAR Insurance:MEDICARE HOVINGDOB: Community [place], PART A [facility] [id number] Memorial Hospital [address]Ocb: Number: Repository [id number] (HP) Date:2018-06-29 08/03/2018 Secondary ROBLES Hyde Stevenson Insurance:MEDICAIDPol HOVINGDOB: Community icy Number: [id number] Hospital [id number] Repository Date:2018-06-29 08/03/2018 Tertiary NOT GIVENUNK Rohini Insurance:SELF PAY [facility] Number: Effective Repository Date:2018-08-03 07/27/2018 ROBLES Hyde Primary ROBLES Borjasoster [id number] FRIAR Insurance:MEDICARE HOVINGDOB: Community [place], PART A [facility] [id number] Memorial Hospital [address]Ljp: Number: Repository [id number] (HP) Date:2018-06-29 07/27/2018 Secondary ROBLES Hyde Rohini Insurance:MEDICAIDPol HOVINGDOB: Community icy Number: [id number] Hospital [id number] Repository Date:2018-06-29 07/27/2018 Tertiary NOT GIVENUNK Rohini Insurance:SELF PAY [facility] Number: Effective Repository Date:2018-07-27 07/27/2018 ROBLES Hyde Primary ROBLES Borjasoster [id number] FRIAR Insurance:MEDICARE HOVINGDOB: Community [place], PART A [facility] [id number] Memorial Hospital [address]Frc: Number: Repository [id number] () Date:2018-06-29 07/27/2018 Secondary ROBLES Hyde Stevenson Insurance:MEDICAIDPol HOVINGDOB: [facility] icy Number: [id number] Hospital [id number] Repository Date:2018-06-29 07/27/2018 Tertiary NOT GIVENUNK Rohini Insurance:SELF PAY [facility] Number: Effective Repository Date:2018-06-29 07/20/2018 ROBLES Hyde Primary ROBLES Borjasoster [id number] FRIAR Insurance:MEDICAIDPol HOVINGDOB: [facility] [place], icy Number: [id number] Memorial Hospital [address]Ykb: [id number] Repository Date:2018-06-29 () 07/20/2018 Secondary ROBLES Hyde Rohini Insurance:MEDICARE HOVINGDOB: Community PART A [facility] [id number] Hospital Number: Repository [id number] Date:2018-06-29 07/20/2018 Tertiary NOT GIVENUNK Rohini Insurance:SELF PAY [facility] Number: Effective Repository Date:2018-07-20 07/13/2018 ROBLES Hyde Primary ROBLES Nova [id number] FRIAR Insurance:MEDICARE HOVINGDOB: [facility] [place], PART A [facility] [id number] Memorial Hospital [address]1555Vgt: Number: Repository [id number] () Date:2018-07-13 07/13/2018 Secondary ROBLES Hyde Stevenson Insurance:MEDICAIDPol HOVINGDOB: Community icy Number: [id number] Hospital [id number] Repository Date:2018-06-29 07/13/2018 Tertiary NOT GIVENUNK Stevenson Insurance:SELF PAY [facility] Number: Effective Repository Date:2018-07-13 07/06/2018 ROBLES Hyde Primary ROBLES Nova [id number] FRIAR Insurance:MEDICAIDPol [facility]DOB: [facility] icy Number: [id number] Memorial Hospital [address]Saz: [id number] Repository Date:2018-06-29 () 07/06/2018 Secondary NOT GIVENUNK Rohini Insurance:SELF PAY [facility] Number: Effective Repository Date:2018-07-06 07/01/2018 ROBLES Hyde Primary ROBLES Nova [id number] FRIAR Insurance:MEDICARE HOVINGDOB: [facility] [id number] Memorial Hospital [address]84Sgx: Number: Repository [id number] () Date:2018-07-01 07/01/2018 Secondary ROBLES Hyde Rohini Insurance:MEDICAIDPol HOVINGDOB: [facility] icy Number: [id number] Hospital [id number] Repository Date:2018-07-01 07/01/2018 Tertiary NOT GIVENUNK Stevenson Insurance:SELF PAY [facility] Number: Effective Repository Date:2018-07-01 06/29/2018 ROBLES Hyde Primary ROBLES Nova [id number] FRIAR Insurance:MEDICARE HOVINGDOB: [facility] [id number] Memorial Hospital 63444Bxl: Number: Repository [id number] () Date:2018-06-29 06/29/2018 Secondary ROBLES Hyde Rohini Insurance:MEDICAIDPol HOVINGDOB: Community icy Number: [id number] Hospital [id number] Repository Date:2018-06-29 06/29/2018 Tertiary NOT GIVENUNK Rohini Insurance:SELF PAY [facility] Number: Effective Repository Date:2018-06-29 06/29/2018 ROBLES Hyde Primary ROBLES Nova [id number] FRIAR Insurance:CARESOURCEP HOVINGDOB: Community shonda ALMARAZ Number: [id number] Memorial Hospital [address]Qqs: [id number] Repository Date:2018-05-11 O () [address]ATTN: [place] [address]OJ: 06/29/2018 Secondary NOT GIVENUNK Rohini Insurance:SELF PAY [facility] Number: Effective Repository Date:2018-06-29 06/22/2018 ROBLES Nova [id number] FRIAR Insurance:CARESOURCEP HOVINGDOB: [facility] shonda ALMARAZ Number: [id number] Memorial Hospital [address]Rwd: [id number] Repository Date:2018-05-11 O () [address]ATTN: [place] [address]: 06/22/2018 Secondary NOT GIVENUNK Rohini Insurance:SELF PAY [facility] Number: Effective Repository Date:2018-05-30 06/15/2018 ROBLES Nova [id number] FRIAR Insurance:CARESOURCEP HOVINGDOB: [facility] shonda ALMARAZ Number: [id number] Memorial Hospital [address]Pad: [id number] Repository Date:2018-06-15 O () [address]ATTN: [place] [address]ER: 06/15/2018 Secondary NOT GIVENUNK Rohini Insurance:SELF PAY [facility] Number: Effective Repository Date:2018-06-15 06/15/2018 ROBLES Nova [id number] FRIAR Insurance:CARESOURCEP HOVINGDOB: [facility] shonda ALMARAZ Number: [id number] Memorial Hospital [address]Pvn: [id number] Repository Date:2018-06-15P O (HP) [address]ATTN: [place] [address]RT: 06/15/2018 Secondary NOT GIVENUNK Stevenson Insurance:SELF PAY [facility] Number: Effective Repository Date:2018-06-15 06/04/2018 ROBLES Nova [id number] FRIAR Insurance:CARESOURCEP HOVINGDOB: Community shonda ALMARAZ Number: [id number] Memorial Hospital [address]Gug: [id number] Repository Date:2018-05-26P O (HP) [address]ATTN: [place] [address]OB: 06/04/2018 Secondary NOT GIVENUNK Rohini Insurance:SELF PAY [facility] Number: Effective Repository Date:2018-06-02 05/27/2018 ROBLES Nova [id number] FRIAR Insurance:CARESOURCEP HOVINGDOB: Community shonda ALMARAZ Number: [id number] Memorial Hospital [address]Eeg: [id number] Repository Date:2018-05-11P O (HP) [address]ATTN: [place] [address]RJ: 05/27/2018 Secondary NOT GIVENUNK Rohini Insurance:SELF PAY [facility] Number: Effective Repository Date:2018-05-11 05/19/2018 ROBLES Nova [id number] FRIAR Insurance:CARESOURCEP HOVINGDOB: Community shonda ALMARAZ Number: [id number] Memorial Hospital [address]Ioj: [id number] Repository Date:2018-05-19P O (HP) [address]ATTN: [place] [address]FC: 05/19/2018 Secondary NOT GIVENUNK Stevenson Insurance:SELF PAY [facility] Number: Effective Repository Date:2018-05-19 05/19/2018 ROBLES Hyde Primary ROBLES Nova [id number] FRIAR Insurance:CARESOURCEP HOVINGDOB: [facility] shonda ALMARAZ Number: [id number] Memorial Hospital [address]Pvc: [id number] Repository Date:2018-05-19P O (HP) [address]ATTN: [place] [address]RN: 05/19/2018 Secondary NOT GIVENUNK Stevenson Insurance:SELF PAY [facility] Number: Effective Repository Date:2018-05-19 05/19/2018 ROBLES Nova [id number] FRIAR Insurance:CARESOURCEP HOVINGDOB: [facility] shonda ALMARAZ Number: [id number] Memorial Hospital [address]Kwr: [id number] Repository Date:2018-05-19P O (HP) [address]ATTN: [place] [address]DM: 05/19/2018 Secondary NOT GIVENUNK Stevenson Insurance:SELF PAY [facility] Number: Effective Repository Date:2018-05-19 05/19/2018 ROBLES Nova [id number] FRIAR Insurance:CARESOURCEP HOVINGDOB: [facility] shonda HERNANDEZ Number: [id number] Memorial Hospital [address]Nzh: [id number] Repository Date:2018-05-19P O () [address]ATTN: [place] [address]LP: 05/19/2018 Secondary NOT GIVENUNK Rohini Insurance:SELF PAY [facility] Number: Effective Repository Date:2018-05-19 05/19/2018 ROBLES Nova [id number] FRIAR Insurance:CARESOURCEP HOVINGDOB: [facility] shonda ALMARAZ Number: [id number] Memorial Hospital [address]Gtr: [id number] Repository Date:2018-05-19P O (HP) [address]ATTN: [place] [address]TF: 05/19/2018 Secondary NOT GIVENUNK Stevenson Insurance:SELF PAY [facility] Number: Effective Repository Date:2018-05-19 05/19/2018 ROBLES Nova [id number] FRIAR Insurance:CARESOURCEP HOVINGDOB: Community shonda ALMARAZ Number: [id number] Memorial Hospital [address]Fmy: [id number] Repository Date:2018-05-12P O (HP) [address]ATTN: [place] [address]BT: 05/19/2018 Secondary NOT GIVENUNK Rohini Insurance:SELF PAY [facility] Number: Effective Repository Date:2018-05-19 05/12/2018 ROBLES Nova [id number] FRIAR Insurance:CARESOURCEP HOVINGDOB: Community shonda ALMARAZ Number: [id number] Memorial Hospital [address]Vac: [id number] Repository Date:2018-05-08P O (HP) [address]ATTN: [place] [address]ZB: 05/12/2018 Secondary NOT GIVENUNK Rohini Insurance:SELF PAY [facility] Number: Effective Repository Date:2018-05-12 05/08/2018 ROBLES Nova [id number] FRIAR Insurance:CARESOURCEP HOVINGDOB: Community shonda ALMARAZ Number: [id number] Memorial Hospital [address]Tiw: [id number] Repository Date:2018-05-08P O (HP) [address]ATTN: [place] [address]BG: 05/08/2018 Secondary NOT GIVENUNK Rohini Insurance:SELF PAY [facility] Number: Effective Repository Date:2018-05-08 05/05/2018 ROBLES Nova [id number] FRIAR Insurance:CARESOURCEP HOVINGDOB: [facility] shonda NEWSOME Number: [id number] Memorial Hospital [address]Umf: [id number] Repository Date:2018-04-30P O (HP) [address]ATTN: [place] [address]MJ: 05/05/2018 Secondary NOT GIVENUNK Stevenson Insurance:SELF PAY [facility] Number: Effective Repository Date:2018-04-30 05/05/2018 ROBLES Nova [id number] FRIAR Insurance:CARESOURCEP [facility] Number: [id number] Memorial Hospital [address]Aye: [id number] Repository Date:2018-04-30P O () [address]ATTN: [place] [address]XR: 05/05/2018 Secondary NOT GIVENUNK Stevenson Insurance:SELF PAY [facility] Number: Effective Repository Date:2018-05-05 05/05/2018 ROBLES Nova [id number] FRIAR Insurance:CARESOURCEP [facility] Number: [id number] Memorial Hospital [address]Qio: [id number] Repository Date:2018-04-30P O (HP) [address]ATTN: [place] [address]LA: 05/05/2018 Secondary NOT GIVENUNK Stevenson Insurance:SELF PAY [facility] Number: Effective Repository Date:2018-05-05 04/27/2018 ROBLES Nova [id number] FRIAR Insurance:CARESOURCEP HOVINGDOB: [facility] shonda LOVE Number: [id number] Memorial Hospital [address]Vrz: [id number] Repository Date:2018-04-27P O () [address]ATTN: [place] [address]YC: 04/27/2018 Secondary NOT GIVENUNK Rohini Insurance:SELF PAY [facility] Number: Effective Repository Date:2018-04-27 04/14/2018 ROBLES Nova [id number] FRIAR Insurance:CARESOURCEP HOVINGDOB: [facility] JAY shonda HERNANDEZ Number: [id number] Memorial Hospital [address]Lcm: [id number] Repository Date:2018-03-25P O () [address]ATTN: [place] [address]YD: 04/14/2018 Secondary NOT GIVENUNK Rohini Insurance:SELF PAY [facility] Number: Effective Repository Date:2018-03-25 03/12/2018 ROBLES Nova [id number] FRIAR Insurance:CARESOURCEP HOVINGDOB: [facility] shonda LOVE Number: [id number] Memorial Hospital [address]Tsa: [id number] Repository [phone] Date:2018-03-12P O -6 () [address]ATTN: [place] [address]HA: 03/12/2018 Secondary NOT GIVENUNK Rohini Insurance:SELF PAY [facility] Number: Effective Repository Date:2018-03-12 03/12/2018 ROBLES Nova [id number] FRIAR Insurance:CARESOURCEP HOVINGDOB: [facility] JAY shonda NEWSOME Number: [id number] Memorial Hospital [address]Dpx: [id number] Repository [phone] Date:2018-02-25P O -6 (HP) [address]ATTN: [place] [address]LB: 03/12/2018 Secondary NOT GIVENUNK Stevenson Insurance:SELF PAY [facility]: Effective Repository Date:2018-03-10 02/25/2018 ROBLES Nova [id number] FRIAR Insurance:CARESOURCEP HOVINGDOB: [facility] shonda LOVE Number: [id number] Memorial Hospital [address]Xrb: [id number] Repository [phone] Date:2018-02-11P O -6 (HP) [address]ATTN: [place] [address]BE: 02/25/2018 Secondary NOT GIVENUNK Stevenson Insurance:SELF PAY [facility] Number: Effective Repository Date:2018-02-17 02/11/2018 ROBLES Hyde Primary ROBLES Nova [id number] FRIAR Insurance:CARESOURCEP HOVINGDOB: [facility] shonda LOVE Number: [id number] Memorial Hospital [address]Glt: [id number] Repository [phone] Date:2018-02-04P O -6 (HP) [address]ATTN: [place] [address]WQ: 02/11/2018 Secondary NOT GIVENUNK Rohini Insurance:SELF PAY [facility] Number: Effective Repository Date:2018-02-10 02/04/2018 ROBLES Nova [id number] FRIAR Insurance:CARESOURCEP HOVINGDOB: [facility] shonda LOVE Number: [id number] Memorial Hospital [address]Akj: [id number] Repository [phone] Date:2018-01-16P O -6 (HP) [address]ATTN: [place] [address]OB: 02/04/2018 Secondary NOT GIVENUNK Stevenson Insurance:SELF PAY [facility] Number: Effective Repository Date:2018-02-02 02/02/2018 ROBLES Nova [id number] FRIAR Insurance:CARESOURCEP HOVINGDOB: [facility] shonda NEWSOME Number: [id number] Memorial Hospital [address]Sxo: [id number] Repository Date:2018-01-27P O (HP) [address]ATTN: [place] [address]AC: 02/02/2018 Secondary NOT GIVENUNK Stevenson Insurance:SELF PAY [facility] Number: Effective Repository Date:2018-01-27 01/26/2018 ROBLES Nova [id number] FRIAR Insurance:CARESOURCEP [facility] CONNELLY Number: [id number] Memorial Hospital [address]Jpm: [id number] Repository Date:2018-01-12P O (HP) [address]ATTN: [place] [address]SQ: 01/26/2018 Secondary NOT GIVENUNK Stevenson Insurance:SELF PAY [facility] Number: Effective Repository Date:2018-01-12 01/19/2018 ROBLES Nova [id number] FRIAR Insurance:CARESOURCEP [facility] Number: [id number] Memorial Hospital [address]Rhv: [id number] Repository Date:2018-01-12P O (HP) [address]ATTN: [place] [address]HI: 01/19/2018 Secondary NOT GIVENUNK Stevenson Insurance:SELF PAY [facility] Number: Effective Repository Date:2018-01-12 01/16/2018 ROBLES Nova [id number] FRIAR Insurance:CARESOURCEP [facility] RAM[facility]REZ Number: [id number] Memorial Hospital [address]Jab: [id number] Repository Date:2018-01-06P O (HP) [address]ATTN: [place] [address]CC: 01/16/2018 Secondary NOT GIVENUNK Rohini Insurance:SELF PAY [facility] Number: Effective Repository Date:2018-01-16 01/12/2018 ROBLES Nova [id number] FRIAR Insurance:CARESOURCEP HOVINGDOB: [facility] shonda [place]OME Number: [id number] Memorial Hospital [address]Ury: [id number] Repository Date:2018-01-12P O (HP) [address]ATTN: [place] [address]AU: 01/12/2018 Secondary NOT GIVENUNK Stevenson Insurance:SELF PAY [facility] Number: Effective Repository Date:2018-01-12 01/10/2018 ROBLES Hyde Primary ROBLES Nova [id number] FRIAR Insurance:CARESOURCEP HOVINGDOB: [facility] shonda LOVE Number: [id number] Memorial Hospital [address]Pzt: [id number] Repository Date:2018-01-10P O (HP) [address]ATTN: [place] [address]QG: 01/10/2018 Secondary NOT GIVENUNK Stevenson Insurance:SELF PAY [facility] Number: Effective Repository Date:2018-01-10 01/06/2018 ROBLES Nova [id number] FRIAR Insurance:CARESOURCEP HOVINGDOB: [facility] JAY shonda NEWSOME Number: [id number] Memorial Hospital [address]Mal: [id number] Repository Date:2018-01-02P O (HP) [address]ATTN: [place] [address]DG: 01/06/2018 Secondary NOT GIVENUNK Rohini Insurance:SELF PAY [facility] Number: Effective Repository Date:2018-01-06 01/05/2018 ROBLES Nova [id number] FRIAR Insurance:CARESOURCEP HOVINGDOB: [facility] JAY shonda NEWSOME Number: [id number] Memorial Hospital [address]4032Lht: [id number] Repository Date:2017-12-29P O (HP) [address]ATTN: [place] [address]GW: 01/05/2018 Secondary NOT GIVENUNK Stevenson Insurance:SELF PAY [facility] Number: Effective Repository Date:2017-12-29 01/02/2018 ROBLES Nova [id number] FRIAR Insurance:CARESOURCEP [facility] Number: [id number] Memorial Hospital [address]Pkv: [id number] Repository Date:2017-12-25P O (HP) [address]ATTN: [place] [address]ZJ: 01/02/2018 Secondary NOT GIVENUNK Stevenson Insurance:SELF PAY [facility] Number: Effective Repository Date:2018-01-02 01/02/2018 ROBLES Nova [id number] FRIAR Insurance:CARESOURCEP [facility]OVA Number: [id number] Memorial Hospital [address]Xtb: [id number] Repository Date:2018-01-02P O (HP) [address]ATTN: [place] [address]QX: 01/02/2018 Secondary NOT GIVENUNK Rohini Insurance:SELF PAY [facility] Number: Effective Repository Date:2018-01-02 12/29/2017 ROBLES Nova [id number] FRIAR Insurance:CARESOURCEP HOVINGDOB: [facility] shonda LOVE Number: [id number] Memorial Hospital [address]Eqg: [id number] Repository Date:2017-12-22P O () [address]ATTN: [place] [address]MO: 12/29/2017 Secondary NOT GIVENUNK Rohini Insurance:SELF PAY [facility] Number: Effective Repository Date:2017-12-22 12/25/2017 ROBLES Nova [id number] FRIAR Insurance:CARESOURCEP [facility]OVA Number: [id number] Memorial Hospital [address]Rqp: [id number] Repository Date:2017-12-22P O () [address]ATTN: [place] [address]WE: 12/25/2017 Secondary NOT GIVENUNK Rohini Insurance:SELF PAY [facility] Number: Effective Repository Date:2017-12-25 12/22/2017 ROBLES Nova [id number] FRIAR Insurance:CARESOURCEP HOVINGDOB: [facility] shonda NEWSOME Number: [id number] Memorial Hospital [address]Ara: [id number] Repository Date:2017-12-19P O () [address]ATTN: [place] [address]VI: 12/22/2017 Secondary NOT GIVENUNK Rohini Insurance:SELF PAY [facility] Number: Effective Repository Date:2017-12-19 12/17/2017 ROBLES Nova [id number] FRIAR Insurance:CARESOURCEP [facility]OVA Number: [id number] Memorial Hospital [address]Gnp: [id number] Repository Date:2017-11-27P O (HP) [address]ATTN: [place] [address]HP: 12/17/2017 Secondary NOT GIVENUNK Rohini Insurance:SELF PAY [facility] Number: Effective Repository Date:2017-11-27 12/17/2017 ROBLES Hyde Primary ROBLES Borjasoster [id number] FRIAR Insurance:CARESOURCEP HOVINGDOB: [facility] Number: [id number] Memorial Hospital [address]Pwt: [id number] Repository Date:2017-11-27P O () [address]ATTN: [place] [address]KZ: 12/17/2017 Secondary NOT GIVENUNK Orhini Insurance:SELF PAY [facility] Number: Effective Repository Date:2017-12-16 12/15/2017 ROBLES Hyde Primary ROBLES Borjasoster [id number] FRIAR Insurance:CARESOURCEP HOVINGDOB: [facility] icy Number: [id number] Memorial Hospital [address]62[address]Pjg: [id number] Repository Date:2017-11-27P O () [address]ATTN: [place] [address]FO: 12/15/2017 Secondary NOT GIVENUNK Stevenson Insurance:SELF PAY [facility] Number: Effective Repository Date:2017-12-15 11/12/2017 ROBLES [id number] Primary ROBLES HOVINGDOB: Rohini FRIAR BANNER Insurance:CARESOURCEP [id number] [facility] Number: [facility] [address]Ugd: [id number] Repository [phone] () Date:2017-10-08 O [address]ATTN: [place] [address]ZG: 11/12/2017 Secondary NOT GIVENUNK Stevenson Insurance:SELF PAY [facility] Number: Effective Repository Date:2017-10-08 10/30/2017 ROBLES [id number] Primary ROBLES HOVINGDOB: Rohini FRIAR TUCK Insurance:CARESOURCEP [id number] Number: [facility] [address]Yjk: [phone] [id number] Repository [phone] () Date:2017-10-30P O [address]ATTN: [place] [address]FX: 10/30/2017 Secondary NOT GIVENUNK Stevenson Insurance:SELF PAY [facility] Number: Effective Repository Date:2017-10-30 10/08/2017 ROBLES [id number] Primary ROBLES HOVINGDOB: Stevenson FRIAR [place] Insurance:CARESOURCEP [id number] [facility] Number: Hospital [address]Vsi: [phone]) [id number] Repository [phone] (HP) Date:2017-09-24P O [address]N: [place] [address]AF: 10/08/2017 Secondary NOT GIVENUNK Stevenson Insurance:SELF PAY [facility] Number: Effective Repository Date:2017-09-24
== END 2018-09-21 13:18 | disposition home or self-care (01) ==
LOC: HHLAB 12:18
PROVIDERS: Family Provider Student in an Organized Health Care Education/Training Program; PCP Student in an Organized Health Care Education/Training Program; Referring Provider Surgery; Visit Provider Surgery
DX: T81.40XA Infection following a procedure, unspecified, initial encounter (principal); E03.9 Hypothyroidism, unspecified; Z45.2 Encounter for adjustment and management of vascular access device; Z51.81 Encounter for therapeutic drug level monitoring
CPT/HCPCS: 80053; 80202; 85027; 85652; 86140

== ENCOUNTER → 2018-09-28 10:34 | Outpatient (CLI) | payer MEDICARE, MEDICAID, SELFPAY ==
[2018-09-25 09:34] VITALS: BMI 45.3
[2018-09-28 10:52] LABS: Hematocrit 33.8 % (37-47); Hemoglobin 10.2 g/dl (12.0-15.0); Mean Corp Hgb Conc 30.2 g/gl (32-36); Mean Corpuscular Hgb 26.2 pg (27.0-32.0); Mean Corpuscular Volume 86.7 fL (81-99); Mean Platelet Vol. 9.4 fl (6.2-12.0); Platelet Count 329 K/mm3 (150-450); RBC Distribution Width CV 16.1 % (11.6-14.6); RBC Distribution Width SD 51.2 fl (35.1-43.9); White Blood Count 5.7 K/mm3 (4.4-11.0)
[2018-09-28 10:55] LABS: Erythrocyte Sedimentation Rate 44 mm/hr (0-20); Scan Indicated on CBC? Y/N NO
[2018-09-28 11:09] LABS: Vancomycin, Trough Level 11.9 ug/mL (5.0-15.0)
[2018-09-28 11:19] LABS: AST(SGOT) 20 U/L (15-37); Alanine Aminotransfer ALT/SGPT 25 U/L (13-56); Albumin, Serum 3.4 g/dL (3.2-5.0); Alkaline Phosphatase 85 U/L (45-117); Anion Gap 9 (5-15); BUN 8 mg/dL (7-18); BUN/Creat Ratio 12.7 RATIO (10-20); CRP 3.79 mg/L (0.0-3.0); Calcium,Total 8.8 mg/dL (8.5-10.1); Chloride 104 mmol/L (98-107); Creatinine, Serum 0.63 mg/dL (0.55-1.02); EST Glomerular Filtration Rate 108 mL/min (>60); Est Glom Filt Rate - Afr Amer 131 mL/min (>60); Globulin 3.5 g/dL (2.2-4.2); Glucose 89 mg/dL (74-106); Potassium 4.3 mmol/L (3.5-5.1); Protein, Total 6.9 g/dL (6.4-8.2); Sodium Level 139 mmol/L (136-145)
== END ==
PROVIDERS: PCP Student in an Organized Health Care Education/Training Program; Visit Provider Surgery
DX: T81.40XA Infection following a procedure, unspecified, initial encounter (principal); B95.62 Methicillin resistant Staphylococcus aureus infection as the cause of diseases classified elsewhere
CPT/HCPCS: 80053; 80202; 85027; 85652; 86140

== ENCOUNTER → 2018-10-13 08:18 | Outpatient (CLI) | payer MEDICARE, MEDICAID, SELFPAY ==
[2018-10-01 13:10] VITALS: BMI 45.3
[2018-10-07 14:37] VITALS: BMI 45.3
--- NOTE | 2018-10-13 08:21 | US_ITS ---
PROCEDURE: Ultrasound Guided aspiration of the right breast seroma. CLINICAL HISTORY: Female, 48 years old. The patient is status post right mastectomy. CONSENT: The procedure as well as the benefits and possible complications were explained to the patient. Informed consent was obtained. Time-Out Called: Yes Consent form signed: YES PT-PTT Levels Checked: Yes TECHNIQUE: The patient was in the supine position. Scanning of the right hemithorax demonstrated a 7.4 cm x 2.4 cm fluid collection suggestive of seroma. Following this, a 5 Malay catheter was placed into the collection. 190 mL of mee-colored fluid was aspirated. FINDINGS: Successful drainage of the seroma. US/Cyst Puncture IMPRESSION: Successful drainage of the seroma. The patient tolerated the procedure well. Electronically Signed: Devonte Bowers MD at 10:06 EST Tel [phone], Service support ,
== END ==
PROVIDERS: Family Provider Student in an Organized Health Care Education/Training Program; PCP Student in an Organized Health Care Education/Training Program; Referring Provider Surgery; Visit Provider Surgery
DX: N61.1 Abscess of the breast and nipple (principal); N64.89 Other specified disorders of breast; N65.1 Disproportion of reconstructed breast; N65.0 Deformity of reconstructed breast; T85.79XS Infection and inflammatory reaction due to other internal prosthetic devices, implants and grafts, sequela; Z90.11 Acquired absence of right breast and nipple; Z86.14 Personal history of Methicillin resistant Staphylococcus aureus infection; Z98.86 Personal history of breast implant removal
CPT/HCPCS: 10005; 76942; 87070; 87075; 87205

== ENCOUNTER 2018-10-20 11:37 | Outpatient (RCR) | payer MEDICARE, MEDICAID, SELFPAY ==
[2018-09-25 09:34] VITALS: BMI 45.3
[2018-10-01 13:10] VITALS: BMI 45.3
[2018-10-05 11:45] LABS: AST(SGOT) 23 U/L (15-37); Alanine Aminotransfer ALT/SGPT 30 U/L (13-56); Albumin, Serum 3.5 g/dL (3.2-5.0); Alkaline Phosphatase 91 U/L (45-117); Anion Gap 8 (5-15); BUN 9 mg/dL (7-18); BUN/Creat Ratio 13.8 RATIO (10-20); CRP 3.71 mg/L (0.0-3.0); Calcium,Total 8.8 mg/dL (8.5-10.1); Chloride 106 mmol/L (98-107); Creatinine, Serum 0.65 mg/dL (0.55-1.02); EST Glomerular Filtration Rate 104 mL/min (>60); Est Glom Filt Rate - Afr Amer 125 mL/min (>60); Globulin 3.5 g/dL (2.2-4.2); Glucose 96 mg/dL (74-106); Potassium 4.3 mmol/L (3.5-5.1); Sodium Level 141 mmol/L (136-145); Vancomycin, Trough Level 13.2 ug/mL (5.0-15.0)
[2018-10-05 11:47] LABS: Erythrocyte Sedimentation Rate 52 mm/hr (0-20)
[2018-10-05 11:49] LABS: Hematocrit 35.3 % (37-47); Hemoglobin 10.5 g/dl (12.0-15.0); Mean Corp Hgb Conc 29.7 g/gl (32-36); Mean Corpuscular Hgb 25.8 pg (27.0-32.0); Mean Corpuscular Volume 86.7 fL (81-99); Mean Platelet Vol. 9.9 fl (6.2-12.0); Platelet Count 315 K/mm3 (150-450); RBC Distribution Width CV 16.3 % (11.6-14.6); Red Blood Count 4.07 M/mm3 (4.2-5.4); Scan Indicated on CBC? Y/N NO; White Blood Count 6.6 K/mm3 (4.4-11.0)
[2018-10-12 11:01] LABS: Hematocrit 36.3 % (37-47); Hemoglobin 10.8 g/dl (12.0-15.0); Mean Corp Hgb Conc 29.8 g/gl (32-36); Mean Corpuscular Hgb 25.8 pg (27.0-32.0); Mean Corpuscular Volume 86.8 fL (81-99); Mean Platelet Vol. 10.1 fl (6.2-12.0); Platelet Count 308 K/mm3 (150-450); RBC Distribution Width CV 16.7 % (11.6-14.6); RBC Distribution Width SD 52.7 fl (35.1-43.9); Red Blood Count 4.18 M/mm3 (4.2-5.4); White Blood Count 6.4 K/mm3 (4.4-11.0)
[2018-10-12 11:03] LABS: Scan Indicated on CBC? Y/N NO
[2018-10-12 11:08] LABS: Erythrocyte Sedimentation Rate 73 mm/hr (0-20)
[2018-10-12 11:15] LABS: ALB/GLOB Ratio 0.9 RATIO (0.9-2.4); AST(SGOT) 20 U/L (15-37); Alanine Aminotransfer ALT/SGPT 28 U/L (13-56); Albumin, Serum 3.6 g/dL (3.2-5.0); Alkaline Phosphatase 86 U/L (45-117); Anion Gap 9 (5-15); BUN 7 mg/dL (7-18); BUN/Creat Ratio 11.6 RATIO (10-20); CRP 4.35 mg/L (0.0-3.0); Calcium,Total 8.8 mg/dL (8.5-10.1); Chloride 104 mmol/L (98-107); EST Glomerular Filtration Rate 114 mL/min (>60); Est Glom Filt Rate - Afr Amer 138 mL/min (>60); Globulin 3.8 g/dL (2.2-4.2); Glucose 90 mg/dL (74-106); Potassium 4.1 mmol/L (3.5-5.1); Protein, Total 7.4 g/dL (6.4-8.2); Sodium Level 141 mmol/L (136-145)
[2018-10-20 11:52] LABS: Erythrocyte Sedimentation Rate 69 mm/hr (0-20)
[2018-10-20 11:56] LABS: Hematocrit 36.4 % (37-47); Hemoglobin 10.8 g/dl (12.0-15.0); Mean Corp Hgb Conc 29.7 g/gl (32-36); Mean Corpuscular Hgb 25.8 pg (27.0-32.0); Mean Corpuscular Volume 87.1 fL (81-99); Mean Platelet Vol. 10.1 fl (6.2-12.0); Platelet Count 317 K/mm3 (150-450); RBC Distribution Width CV 17.1 % (11.6-14.6); RBC Distribution Width SD 53.5 fl (35.1-43.9); Red Blood Count 4.18 M/mm3 (4.2-5.4); White Blood Count 6.6 K/mm3 (4.4-11.0)
[2018-10-20 11:58] LABS: Scan Indicated on CBC? Y/N NO
[2018-10-20 12:09] LABS: ALB/GLOB Ratio 0.9 RATIO (0.9-2.4); AST(SGOT) 17 U/L (15-37); Alanine Aminotransfer ALT/SGPT 23 U/L (13-56); Albumin, Serum 3.4 g/dL (3.2-5.0); Alkaline Phosphatase 80 U/L (45-117); Anion Gap 5 (5-15); BUN 9 mg/dL (7-18); BUN/Creat Ratio 14.4 RATIO (10-20); Chloride 108 mmol/L (98-107); Creatinine, Serum 0.63 mg/dL (0.55-1.02); EST Glomerular Filtration Rate 108 mL/min (>60); Est Glom Filt Rate - Afr Amer 131 mL/min (>60); Globulin 3.6 g/dL (2.2-4.2); Glucose 89 mg/dL (74-106); Potassium 4.2 mmol/L (3.5-5.1); Sodium Level 141 mmol/L (136-145)
[2018-10-20 12:20] LABS: Vancomycin, Trough Level 9.9 ug/mL (5.0-15.0)
== END 2018-10-29 23:59 ==
LOC: HHLAB 11:37
PROVIDERS: Family Provider Student in an Organized Health Care Education/Training Program; PCP Student in an Organized Health Care Education/Training Program; Referring Provider Surgery; Visit Provider Surgery
DX: T81.40XA Infection following a procedure, unspecified, initial encounter (principal); B95.62 Methicillin resistant Staphylococcus aureus infection as the cause of diseases classified elsewhere
CPT/HCPCS: 80053; 80202; 85027; 85652; 86140

== ENCOUNTER → 2018-10-20 13:26 | Outpatient (CLI) | payer MEDICARE, MEDICAID, SELFPAY ==
[2018-10-07 14:37] VITALS: BMI 45.3
[2018-10-20 12:52] VITALS: BP 167/116; PULSE 106; RESP 18; TEMP 36.6; O2SAT 98; BMI 45.5
[2018-10-20 13:30] VITALS: BP 125/68; PULSE 96; RESP 16; O2SAT 99; BMI 45.5
== END ==
PROVIDERS: Family Provider Student in an Organized Health Care Education/Training Program; PCP Student in an Organized Health Care Education/Training Program; Referring Provider Surgery; Visit Provider Surgery
DX: Z45.2 Encounter for adjustment and management of vascular access device (principal)

== ENCOUNTER → 2018-11-05 08:12 | Outpatient (CLI) | payer MEDICARE, MEDICAID, SELFPAY ==
[2018-10-21 08:48] VITALS: BMI 45.5
[2018-10-30 00:48] VITALS: BMI 45.3
--- NOTE | 2018-11-05 | FLU_PTH ---
PATIENT: ROBLES CARRASQUILLO LOC: U#:[id number] AGE/SX: 55/F ROOM: RE11/05/[address]: Dr. Sean Stevenson MD : 1970 BED: DIS: SPEC #: [id number] RECD: 11/05/18 11:35 STATUS: HAMIDA QAMAR #: [id number] ROSE: 11/05/18 00:[address]: Sean Stevenson DEPT: CYTOLOGY RECD BY: Evin Centeno ENTERED: 11/05/18 11:36 SP TYPE: Fluid OTHR DR: Dr. Eduardo Peters, DO Tissues: Right breast, NOS Procedures: Special Stain Group II Surgery Specimen Level IV Cytospin Fluid HEADER OPERATION: Cyst puncture PRE-OP DIAGNOSIS: Right mastectomy site seroma TISSUE SUBMITTED: Cyst DIAGNOSIS CYTOLOGY Cyst puncture (cytospin and cell block): Negative for malignant cells. See cytology study and comment. SJ:latha 11/06/18 COMMENT Clinical correlation and appropriate follow up are necessary. CYTOLOGY STUDY Slides are reviewed. The specimen consists of numerous macrophages and lymphocytes. CYTOLOGY GROSS Received is 35 ml of cloudy red fluid labeled with the patient's name and and designated per the requisition as cyst. Submitted for cytology preparation including cell block. / 11/05/18 TC:5 CPT: 11051, 98240
--- NOTE | 2018-11-05 08:18 | US_ITS ---
STUDY: ULTRASOUND GUIDED ASPIRATION BREAST SEROMA RIGHT REASON FOR EXAM: Female, 48 years old. The patient is status post right mastectomy. Postoperative seroma. TECHNIQUE: The patient was in the supine position. Scanning of the right breast demonstrated a fluid collection in the deep tissues. Following this, a 5 Maltese catheter was placed into the collection. 40 cc of blood-tinged fluid was aspirated. COMPARISON: Comparison is made with prior study dated October 13, 2018. FINDINGS: Successful drainage of the breast seroma. US/Cyst Puncture IMPRESSION: Successful drainage of the breast seroma. Electronically Signed: Devonte Bowers MD at 10:20 EST , Service support ,
== END ==
PROVIDERS: Family Provider Student in an Organized Health Care Education/Training Program; PCP Student in an Organized Health Care Education/Training Program; Referring Provider Surgery; Visit Provider Surgery
DX: N64.89 Other specified disorders of breast (principal); Z86.14 Personal history of Methicillin resistant Staphylococcus aureus infection; Z90.11 Acquired absence of right breast and nipple
CPT/HCPCS: 10160; 76942; 87070; 87075; 87205; 88108; 88305; 88313

== ENCOUNTER → 2019-02-03 08:54 | Outpatient (CLI) | payer MEDICARE, SELFPAY ==
[2019-01-27 10:39] VITALS: BMI 45.3
--- NOTE | 2019-02-03 08:57 | BI_ITS ---
MAMMOGRAPHY - UNILATERAL DIAGNOSTIC: LEFT BREAST REASON FOR EXAM: Female, 49 years old. History of a prior left wound debridement. Bilateral breast reduction surgery. PERTINENT HISTORY: Non-contributory. TECHNIQUE: Digital unilateral breast randy (3D mammographic acquisition) in the CC and MLO projections. 2-D mediolateral oblique (MLO) and craniocaudad (CC) views of both breasts were obtained. CAD: Full Field Digital Mammography with Computer Added Detection was performed. COMPARISON: Comparison is made with prior examination dated May 10, 2016 and April 07. FINDINGS: Breast Composition: The breasts are almost entirely fatty. There are no dominant masses or suspicious calcifications. No other significant abnormalities are identified. There has been no significant change since the prior study. BI/DIAG MAMM W/CAD, UNILAT IMPRESSION: Stable unilateral diagnostic mammogram. One year follow-up mammogram recommended. (A) ASSESSMENT CATEGORY: BIRADS Category 1: Negative. A letter regarding these results will be sent to the patient by the facility within 30 days. Approximately 10% of breast cancers are not detected by mammography. A normal mammogram should not delay biopsy of a clinically suspicious abnormality. Electronically Signed: Devonte Bowers, at 10:34 EDT , Service support ,
--- NOTE | 2019-02-03 09:01 | US_ITS ---
STUDY: ULTRASOUND BREAST - LEFT REASON FOR EXAM: Female, 49 years old. History of bilateral breast reduction and right mastectomy. TECHNIQUE: Axial and longitudinal images of the LEFT breast were performed with a high resolution ultrasound transducer. COMPARISON: Correlation is made with prior mammogram done earlier today. FINDINGS: LEFT Breast: Incidental note is made of a 5 mm x 4 mm x 3 mm cyst at the 6:00 position of the breast adjacent to the nipple area. US/Breast Limited Unilateral IMPRESSION: Incidental note is made of a 5 mm x 4 mm x 3 mm cyst at the 6:00 position of the breast adjacent to the nipple. ASSESSMENT CATEGORY: BIRADS Category 2: Benign. A letter regarding these results will be sent to the patient by the facility within 30 days. Electronically Signed: Devonte Bowers, at 11:00 EDT , Service support ,
== END ==
PROVIDERS: Family Provider Student in an Organized Health Care Education/Training Program; PCP Student in an Organized Health Care Education/Training Program; Referring Provider Surgery; Visit Provider Surgery
DX: N61.1 Abscess of the breast and nipple (principal); N64.4 Mastodynia; Z98.890 Other specified postprocedural states
CPT/HCPCS: 76642; 77061; 77065; 97110; G0279

== ENCOUNTER 2019-02-15 09:30 | Outpatient (RCR) | payer MEDICARE, SELFPAY ==
[2018-12-09 08:33] VITALS: BMI 45.3
--- NOTE | 2018-12-23 16:58 | HP.PTEVAL ---
Patient's Visit Information ROBLES CARRASQUILLO is a 48 year old F referred to Physical Therapy by MAYI Cuello with a diagnosis of Cervicalgia, shoulder, thoracic, chest pain. Date of Evaluation: 12/23/18 Physical Therapist: Callie Loza DPT - Visit Plan Frequency: 1x/Week Duration: 4 Weeks Plan: Focus on Posture and scapular s/s with ROM and functional mobility - Subjective Findings: Chronic infections- Has had 12 breast surgeries total-this has been going on for 3 years- has basically not used her right arm in the past few years. Now PINEDA, neck pain, chest wall, Elbow, wrist, hand pain. PINEDA- comes and goes- every couple of days- pineda feel like a band around the head along the brim of a hat and along the front- no history of PINEDA- Tylenol, ice back on the back of her neck, massage makes it feel better. Its not debilitating. Pain in her back is along the whole neck and it pulls with SB and extension- puts a pillow under neck to help support it. Pain in the armpit and chest wall pulls with a deep breathe. Elbow/Wrist/hand pain comes and goes but it hurts if she does more movement with it. Eases: rest. Worst: 7/10 Best: 0/10 Most comfortable sitting. Sleep: disturbed- hard to get comfortable- side sleeper. They are talking about taking the left breast as well. 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 - Objective Posture: POOOR- FH, RS, increased kyphosis- can correct with VC's but does not maintain. Observation: no breast on the right side with significant scar tissue- Raised [place]. Palpation: tender along upper trap to suboccipitals, to the tip of the acromion and into the medial border of the scapula. rom: Cervical Spine: WFL except Rot to the right decreasd by 25%- pain in all end ranges. Shoulder: WFL In all planes but reports pain with end range flexion/abd- IR behind the back is limited by 25% to the left. 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 Flex: Upper Trap: severe. Lavator: Severe - Goals Goal 1:: Patient will be I with HEP and progression Goal Time Frame: 4-6 Weeks Goal 2:: Patient will maintain proper posture t/o tx session to demo increased scap and core s/s. Goal Time Frame: 4-6 Weeks Goal 3:: Patient will demo full AROM with 0/10 pain Goal Time Frame: 4-6 Weeks Goal 4:: Patient zayra report no pineda for 1 week Goal Time Frame: 4-6 Weeks - Rehabilitation Potential Physical Therapy Diagnosis: Patient presents with hypomobility- she has decreased ROM, strength and muscular endurance leading to poor posture and increased pain with ADL's. Rehabilitation Potential: Fair - Anticipated Interventions Patient/Client Instruction: Educate patient on: Benefits of Fitness Program Therapeutic Exercise to Include: Strength training, Endurance training, Body mechanics, Postural training, Flexibilty training, Passive ROM, Active ROM, Scapular Strength/Stabilization For the Purpose of:: To improve muscle performance and motor function Manual Therapy Techniques to Include: Passive ROM, Soft tissue mobilization TENS: Yes Cryotherapy (ice pack, ice massage): Yes Thermo therapy (hot pack): Yes Ultrasound (thermal/non thermal): No Thank you for the opportunity to evaluate your patient. For Medicare and Medicare HMO plans, please review the plan of care and approve it. It will need to be FAXED BACK to us at [phone] for Medicare purposes. For Medicare only, by signing this I certify the plan of care. Please let me know if there are questions or concerns regarding this plan of care. Physician Signature: Date:
--- NOTE | 2019-01-19 16:47 | HP.PTREVAL ---
Huma Infante, DALTON-C, It has been my pleasure to treat ROBLES CARRASQUILLO over the last 6 visits for Cervicalgia, shoulder, thoracic, chest pain. Please see the progress note below for an update on the physical therapy plan of care! Subjective: Patient reports that she feels stronger and less painful but does still have some problems. Sees the MD on Friday- feels that her center of balance is off. Objective/Function: Posture: Improved- FH, RS, increased kyphosis- can correct with VC's and maintain Observation: no breast on the right side with significant scar tissue- Raised [place]. Palpation: not tender rom: Cervical Spine: WFL- no pain at end range Shoulder: WFL In all planes no pain Strenth: Scap: fair, Shoulder: 4+/5 throughout, elbow: 4+/5, Wrist: 4+/5 Flex: Upper Trap: mod. Lavator:mod. Patient has shown significant improvement. Plan Plan: pt is to not be pushed into pain w/ the ex.. Focus on Posture and scapular s/s with ROM and functional mobility. Continue towards goals 2x a week for 4 weeks Goals Goal 1:: Patient will be I with HEP and progression Goal Time Frame: 4-6 Weeks Goal Progress: Progressing Goal 2:: Patient will maintain proper posture t/o tx session to demo increased scap and core s/s. Goal Time Frame: 4-6 Weeks Goal Progress: Progressing Goal 3:: Patient will demo full AROM with 0/10 pain Goal Time Frame: 4-6 Weeks Goal Progress: Progressing Goal 4:: Patient zayra report no keith for 1 week Goal Time Frame: 4-6 Weeks Anticipated Interventions Patient/Client Instruction: Educate patient on: Benefits of Fitness Program Therapeutic Exercise to Include: Strength training, Endurance training, Body mechanics, Postural training, Flexibilty training, Passive ROM, Active ROM, Scapular Strength/Stabilization For the Purpose of:: To improve muscle performance and motor function Manual Therapy Techniques to Include: Passive ROM, Soft tissue mobilization TENS: Yes Cryotherapy (ice pack, ice massage): Yes Thermo therapy (hot pack): Yes Ultrasound (thermal/non thermal): No Please do not hesitate to contact me at [phone] by phone or if you have questions or concerns regarding this new plan of care! Sincerely, ISAURO MorelosT
--- NOTE | 2019-02-15 09:46 | HP.PTDCSUM_ITS ---
HP - PT D/C Summary It has been my pleasure to treat ROBLES CARRASQUILLO under orders from Huma Infante, RAISAC, for the diagnosis of Cervicalgia, shoulder, thoracic, chest pain for a total of 9 visit(s). Discharge Date: Please see the following information for a summary of their discharge status. - Subjective Subjective: Patient reports that her shoulder is better. Less pain and more mobility. Surgery March 26 - Pain R SH Pain Intensity (Out of 10): 0 neck Pain Intensity (Out of 10): 0 PINEDA Pain Intensity (Out of 10): 3 - Overall Improvement % Improvement: 90 - Objective Objective/Function: Posture: Improved- FH, RS, increased kyphosis- can correct with VC's and maintain- does not fidget in sitting Observation: no breast on the right side with significant scar tissue- Raised CJ Junction. Palpation: not tender rom: Cervical Spine: WFL- no pain at end range Shoulder: WFL In all planes no pain Strenth: Scap: fair plus, Shoulder: 4+/5 throughout, elbow: 4+/5, Wrist: 4+/5 Flex: Upper Trap: mod. Lavator:mod. Patient has shown significant improvement. - Goals Goal 1:: Patient will be I with HEP and progression Goal Progress: Goal Met Goal 2:: Patient will maintain proper posture t/o tx session to demo increased scap and core s/s. Goal Progress: Goal Met Goal 3:: Patient will demo full AROM with 0/10 pain Goal Progress: Goal Met Goal 4:: Patient zayra report no pineda for 1 week Goal Progress: Goal Met - Plan Plan: Discharge to [facility] and having surgery in about a month- edcuated to call if she has questions or concerns - D/C Information If there are questions or concerns regarding this patient's physical therapy, pl noelle feel free to call me at [phone]. Thank you for the referral of this patient. Sincerely, Callie Loza DPT
== END 2019-02-15 19:00 | disposition home or self-care (01) ==
LOC: PT 09:30
PROVIDERS: Family Provider Student in an Organized Health Care Education/Training Program; PCP Student in an Organized Health Care Education/Training Program; Referring Provider Nurse Practitioner Family; Visit Provider Nurse Practitioner Family
DX: Z98.86 Personal history of breast implant removal (principal); N65.1 Disproportion of reconstructed breast; M54.2 Cervicalgia; M25.519 Pain in unspecified shoulder; M54.6 Pain in thoracic spine; R07.89 Other chest pain; G89.18 Other acute postprocedural pain; Z40.01 Encounter for prophylactic removal of breast
CPT/HCPCS: 97110; 97162; 97164

== ENCOUNTER → 2019-04-09 | Outpatient (CLI) | payer MEDICARE, SELFPAY ==
[2019-01-27 10:39] VITALS: BMI 45.3
[2019-04-09 14:00] LABS: Lipase 305 U/L (73-393)
== END | disposition home or self-care (01) ==
LOC: LABSPEC 13:35
PROVIDERS: Family Provider Student in an Organized Health Care Education/Training Program; PCP Student in an Organized Health Care Education/Training Program; Referring Provider Registered Nurse; Visit Provider Registered Nurse
DX: R10.11 Right upper quadrant pain (principal); R10.9 Unspecified abdominal pain
CPT/HCPCS: 83690

== ENCOUNTER → 2019-05-20 | Outpatient (CLI) | payer MEDICARE, SELFPAY ==
[2019-05-13 13:34] VITALS: BMI 45.3
--- NOTE | 2019-05-20 13:54 | US_ITS ---
STUDY: ULTRASOUND BREAST - LEFT REASON FOR EXAM: Female, 49 years old. Left breast lump with pain TECHNIQUE: Axial and longitudinal images of the LEFT breast were performed with a high resolution ultrasound transducer. COMPARISON: Study of 02/03/2019. FINDINGS: LEFT Breast: Targeted sonogram of the left breast along the 6:00 axis demonstrates unremarkable visualized fibroglandular tissue. No evidence of lesion, either cystic or solid, is visualized. Cyst visualized on prior study is no longer visualized on current assessment. No other focal abnormality is noted. US/Breast Limited Unilateral IMPRESSION: Cyst visualized on prior study along 6:00 axis is no longer visualized. No evidence of cystic or solid lesion visualized in the region of concern. ASSESSMENT CATEGORY: BIRADS Category 1: Negative. A letter regarding these results will be sent to the patient by the facility within 30 days. Patient will return to annual screening mammogram as scheduled. Electronically Signed: Samy Drew MD at 14:45 EDT Tel [phone], Service support ,
== END | disposition home or self-care (01) ==
LOC: OPUS 13:54
PROVIDERS: Family Provider Student in an Organized Health Care Education/Training Program; PCP Student in an Organized Health Care Education/Training Program; Referring Provider Surgery; Visit Provider Surgery
DX: N61.1 Abscess of the breast and nipple (principal); N64.4 Mastodynia; N65.1 Disproportion of reconstructed breast; M54.2 Cervicalgia; M54.6 Pain in thoracic spine; Z98.890 Other specified postprocedural states; Z40.01 Encounter for prophylactic removal of breast; Z90.11 Acquired absence of right breast and nipple; Z86.14 Personal history of Methicillin resistant Staphylococcus aureus infection; Z87.891 Personal history of nicotine dependence
CPT/HCPCS: 76642

== ENCOUNTER 2019-08-31 11:23 | Observation (INO) | payer MEDICARE, MEDICAID, SELFPAY ==
[2019-01-27 10:39] VITALS: BMI 45.3
[2019-06-16 15:36] VITALS: BMI 45.3
[2019-08-24 18:04] LABS: Prothrombin Time (Protime)PT. 13.3 SECONDS (11.7-14.9)
[2019-08-24 18:05] LABS: Partial Thromboplast Time 30.1 Seconds (24.1-36.2)
[2019-08-24 18:10] LABS: Hematocrit 42.4 % (37-47); Hemoglobin 13.1 g/dL (12.0-15.0); Mean Corp Hgb Conc 30.9 g/dL (32-36); Mean Corpuscular Hgb 29.5 pg (27.0-32.0); Mean Corpuscular Volume 95.5 fL (81-99); Platelet Count 305 K/mm3 (150-450); RBC Distribution Width CV 14.1 % (11.6-14.6); RBC Distribution Width SD 49.3 fl (35.1-43.9); Red Blood Count 4.44 M/mm3 (4.2-5.4); White Blood Count 8.6 K/mm3 (4.4-11.0)
[2019-08-24 18:20] LABS: AST(SGOT) 21 U/L (15-37); Alanine Aminotransfer ALT/SGPT 26 U/L (13-56); Albumin, Serum 3.8 g/dL (3.2-5.0); Alkaline Phosphatase 85 U/L (45-117); Globulin 3.8 g/dL (2.2-4.2); Protein, Total 7.6 g/dL (6.4-8.2); Thyroid Stim Hormone (TSH) 1.22 uIU/mL (0.358-3.74)
--- NOTE | 2019-08-30 18:23 | HP.PCM_ITS ---
History and Physical Date of Admission: 08/31/19 HISTORY OF PRESENT ILLNESS Patient comes in today for re-evaluation of her recurrent infection left breast. The redness resolved after starting Levaquin antibiotics. She still has persistent pain in the left breast. She denies trauma. 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 She has tried external prostheses for symmetry but the left breast is heavier than the prosthesis so the symptomatology is still persistent. Since her right breast implant was removed last April secondary to infection, I told her that we would have to wait at least a year before considering placing another tissue archives specialist in the right breast followed by replacement cohesive gel implant. However the patient is concerned because she has had previous infections in the left breast. Her persistent infections in the right breast led to an eventual mastectomy. She comes in today for further evaluation and treatment regarding her recurrent left breast infection. She denies fever. She denies trauma. She had a mammogram and ultrasound on 02/03/19. They were normal without evidence of suspicious shea s or infection. She had a repeat Ultrasound on 05/20/19 which showed no evidence of cystic or solid lesion visualized in the region of concern. She has completed her Levaquin antibiotics and has not noticed any more redness. PAST MEDICAL HISTORY Abscess (Acute) Anemia (Acute) Anxiety (Acute) BREAST LUMP/CYST (Acute) COMPROMISED BILATERAL BREAST REDUCTION NIPPLE GRAFTS (Acute) Depression (emotion) (Acute) Disproportion of reconstructed breast (Acute) Graves disease (Acute) Hypertriglyceridemia (Acute) Hypothyroidism (Acute ~2001) MRSA (methicillin resistant staph aureus) culture positive (Acute) Metabolic syndrome (Acute) NONHEALING SURGICAL WOUND RIGHT BREAST (Acute) NONHEALING ULCER LEFT BREAST AT VERTICAL INCISION (Acute) Obesity (Acute) Ovarian cyst (Acute) RECURRENT INFECTED ULCER LEFT BREAST (Acute) RECURRENT NONHEALING INFECTED MRSA ULCER RIGHT BREAST (Acute) Seasonal allergies (Acute) Hypertension (Chronic) PAST SURGICAL HISTORY BILATERAL BREAST REDUCTION MAMMAPLASTY (Acute) COMPLETE THYROIDECTOMY DUE TO GRAVES' DISEASE (Acute ~11/2001) Delivered by section (Acute) EXCISIONAL DEBRIDEMENT RECURRENT NONHEALING INFECTED MRSA (Acute) EXCISIONL DEBRIDEMENT NONHEALING RECURRENT INFECTED ULCER (Acute) Gastric bypass status for obesity (Acute) HERNIA REPAIR WITH MESH (Acute ~2014) History of bilateral ligation of fallopian tubes (Acute ~2000) History of incisional hernia repair (Acute 07/03/10) History of tonsillectomy (Acute ~12/2003) INCISION AND DRAINAGE BREAST ABSCESS (Acute) MASTOTOMY RIGHT BREAST (Acute) PANICULECTOMY (Acute ~04/2013) S/P complete hysterectomy (Acute) SURGICAL PREPARATION AND REVISION BREAST RECONSTRUCTION (Acute) SURGICAL PREPARATION LEFT BREAST WITH MASTECTOMY (Acute) SURGICAL PREPARATION RIGHT BREAST (Acute) ALLERGIES codeine Allergy (Verified 06/16/19 15:28) Rash Penicillins Allergy (Verified 06/16/19 15:28) Rash NSAIDS (Non-Steroidal Anti-Inflamma Adverse Reaction (Verified 06/16/19 15:28) Other MEDICATIONS Calcium Carbonate/Vitamin D3 [Calcium 600-Vit D3 400 Caplet] 1 ea PO BID 08/15/15 [History Confirmed 09/25/18] Cholecalciferol (VIT D3) [Vitamin D3] 2,000 unit PO DAILY 08/15/15 [History Confirmed 09/25/18] Multivitamins,Ther W-Minerals [Multivitamin With Minerals] 1 tab PO DAILY 08/15/15 [History Confirmed 09/25/18] Nortriptyline HCl [Pamelor] 50 mg PO QHS 04/03/16 [History Confirmed 09/25/18] buPROPion XL [Wellbutrin Xl] 450 mg PO DAILY 04/18/17 [History Confirmed 09/25/18] Iron Polysaccharide Complex [Ferrex 150] 150 mg PO BID 05/01/17 [History Confirmed 09/25/18] Acetaminophen [Tylenol] 1,000 mg PO Q8H PRN #1 tab 05/06/17 [Rx Confirmed 09/25/18] Ascorbic Acid [Vitamin C] 1,000 mg PO BID 12/03/17 [History Confirmed 09/25/18] Fluoxetine HCl [Prozac] 40 mg PO DAILY 12/03/17 [History Confirmed 09/25/18] Magnesium 250 mg PO QHS 12/03/17 [History Confirmed 09/25/18] Zolpidem Tartrate [Ambien] 10 mg PO QHS PRN 04/07/18 [History Confirmed 09/25/18] levothyroxine 175 mcg tablet 200 mcg PO DAILY 07/01/18 [History Confirmed 09/25/18] levofloxacin 500 mg tablet 500 mg PO DAILY #30 tab 05/13/19 [Rx Confirmed 05/13/19] FAMILY HISTORY Father , FROM MRSA AT AGE 50 Hypertension Hyperlipidemia Acute depression Diabetes Mother Asthma Grandmother Diabetes Heart disease Grandmother Hypertension Diabetes Grandfather Parkinson disease Brother Asthma Aunt Thyroid cancer Uncle Thyroid cancer SOCIAL HISTORY household members: significant other, children number of children: 2 current occupational status: unemployed Smoking Status: Former smoker second hand exposure: No alcohol intake: current details: [employer] General - Denies fever, fatigue and weakness. Had 150 lb weight loss after gastric bypass in 2009. Eyes - Denies eye pain. ENT - Denies nasal congestion and sore throat. Had thyroidectomy. Had tonsillectomy. CV - Denies chest pain or discomfort, fatigue, lightheadedness and shortness of breath with exertion. Resp - Denies cough and shortness of breath. Patient is a former smoker. GI - Denies nausea, vomiting, diarrhea and constipation. Gastric bypass due to severe obesity 158lbs loss. - Denies blood in urine and urinary frequency. Had hysterectomy MS - Complains of thoracic back pain and neck pain from her breast asymmetry secondary to previous mastectomy on the right. Denies joint pain, stiffness, muscle weakness and arthritis. Derm - Denies suspicious lesions and skin cancer. Neuro - Denies headaches and numbness. Psych - Complains of anxiety and depression. Endo - Denies excessive urination and excessive thirst. Has had recurrent breast infections. Heme - Denies bleeding and abnormal bruising. PHYSICAL EXAMINATION General: well developed, well nourished, in no acute distress. Bra size was 42 D prior to the breast reduction. Head: normocephalic and atraumatic. Eyes: PERRL/EOM intact, conjunctiva and sclera clear. Neck: no masses, thyromegaly, or abnormal cervical nodes. Breasts: Left breast has well healed vertical and horizontal incisions. The redness which was mostly near the incisions has resolved. Persistent tenderness to palpation. Good shape and contour left breast. No purulent drainage. No fluctuance. Right breast mastectomy incision is healed. Lungs: clear bilaterally to auscultation. Heart: regular rate and rhythm. Msk: no bony tenderness. Pulses: pulses normal in all 4 extremities. Extremities: no clubbing, cyanosis, edema, or deformity noted with normal full range of motion of all joints. Neurologic: cranial nerves II-XII grossly intact. Skin: no rashes. Cervical Nodes: no significant adenopathy. Axillary Nodes: no significant adenopathy. Psych: alert and cooperative; normal mood and affect; normal attention span and concentration. ASSESSMENT 1. Painful recurrent infection left breast. 2. History of recurrent infection right breast. 3. Acquired absence right breast. 4. Painful breast asymmetry secondary to right mastectomy. 5. Neck pain. 6. Thoracic back pain. 7. Disproportion reconstructed breasts. 8. History of breast reduction mammaplasty. 9. History of mastectomy right breast. 10. History of MRSA. 11. Former smoker. PLAN Patient has painful recurrent infection left breast. Some of the pain is due to the infection and some is due to her breast asymmetry from her right breast mastectomy. Since her right breast implant was removed last April secondary to infection, her painful symptomatology has worsened. Further breast reconstruction with another tissue archives specialist followed by replacement cohesive gel implant is on hold until later in the year. She has stopped the Levaquin antibiotics as the redness has resolved. Reviewed the Ultrasound from 05/20/19. It showed no evidence of cystic or solid lesion visualized in the region of concern. Right now the recurrent infection left breast is similar to how the right breast worsened with recurrent infections that eventually led to a mastectomy to c ontrol the infection. With the resolution of the redness on the left, I will schedule mastectomy on the left before another infection develops. I don't want to have to do any surgery urgently secondary to infection. Will schedule the surgery for next month. At the time of surgery, will treat her perioperatively with Vancomycin because of her history of MRSA. I will place a PICC line for extended antibiotic usage because of her extensive history of breast infections. Will send tissue to Pathology for analysis to rule out carcinoma. Will also send tissue to Microbiology for culture. A positive culture may necessitate antibiotic modification. Will have drains in for several days unless the breast wound is left open initially. Will keep her head elevated postop and will wear a chest wall binder for compression. Surgery will be done under general anesthesia with a surgical observation overnight stay in the hospital. The patient was informed of the risks and complications of the procedure including alternatives to surgery. These were discussed with the patient personally. The patient voices understanding and wishes to proceed. Some of the risks and complications were included in a form from the [employer]. Will also check a TSH preoperatively. Followup after her surgery.
[2019-08-31] VITALS (10 sets, daily range): BP systolic 109–158; BP diastolic 65–109; PULSE 90–107; RESP 16–20; TEMP 36.4–37.1; O2SAT 93–100; BMI 44.0
[2019-08-31] MEDS: Scopolamine 1mg/72hr Patch 1 PATCH TRANSDERM. (06:45)
[2019-08-31] MEDS: Acetaminophen 500 MG Tablet 1000 MG PO ×2 (07:54→17:21)
[2019-08-31] MEDS: Magnesium Sulfate 4gm/100mL 4 GM/100 ML IV.SOLN. IV (07:54)
[2019-08-31] MEDS: Lactated Ringers 1,000 ML 40 ML IV (07:54)
[2019-08-31] MEDS: Gabapentin 600 MG Tablet PO (07:54)
--- NOTE | 2019-08-31 09:00 | BREAST_PTH ---
PATIENT: ROBLES CARRASQUILLO LOC: MS3 U#:[id number] AGE/SX: 49/F ROOM: MS319 RE08/31/[address]: Dr. Sean Stevenson MD : 1970 BED: 1 DIS: 09/02/2019 SPEC #: [id number] RECD: 08/31/19 11:53 STATUS: HAMIDA REQ #: [id number] ROSE: 08/31/19 09:[address]: Sean Stevenson DEPT: SURGICAL PATHOLOGY RECD BY: Evin Centeno ENTERED: 08/31/19 13:10 SP TYPE: BREAST OTHR DR: Dr. Eduardo Peters, DO Tissues: Left breast, NOS Procedures: Surgery Specimen Level V HEADER OPERATION: Mastectomy, prophylactic PRE-OP DIAGNOSIS: Painful recurrent infection left breast TISSUE SUBMITTED: Left breast tissue MICROSCOPIC DIAGNOSIS Left breast tissue, mastectomy: Benign breast tissue with focal fibrocystic changes and intraductal hyperplasia without atypia. Overlying skin with a well healed scar. SJ:latha 09/03/19 MICROSCOPIC DESCRIPTION Slides are reviewed. GROSS DESCRIPTION Received in fixative is one container labeled with the patient's name and designated left breast tissue. The specimen consists of a mastectomy specimen measuring 27 x 25 cm and weighing 1458 gm. The anterior portion of the breast contains skin measuring 26 x 9 cm. A scar is present in the mid portion of the skin measuring 10.2 cm in greatest dimension and is well healed. No gross nipple is identified. The specimen is differentially inked as follows: posterior - black, superior - blue and inferior - green. Serial sections do not reveal a distinct mass lesion. The cut surfaces are mostly yellow in color with focal fibrous streaks. Also present free in the specimen container are four irregular fragments of yellow fatty tissue ranging in size from 2 to 8 cm in greatest dimension. Serial sections of these fragments do not reveal mass lesions. Threader sections are submitted as follows: 1 - one area of scar, 2??perpendicular superior and inferior margin, 3 - perpendicular posterior margin, 4 - perpendicular medial margin, 5 - perpendicular lateral margin, 6-11 - labor representative sections of breast parenchyma. Cassettes are submitted after additional fixation. / AM:latha 09/01/19 TC:5 CPT: 77931
[2019-08-31 09:05] LABS: Bedside Glucose 94 mg/dL (70-110)
--- NOTE | 2019-08-31 11:17 | OP.PCM_ITS ---
Report of Operation Date of Procedure: 08/31/19 Pre-Operative Diagnosis: 1. Painful recurrent infection left breast. 2. History of recurrent infection right breast. 3. Acquired absence right breast. 4. Painful breast asymmetry secondary to right mastectomy. 5. Neck pain. 6. Thoracic back pain. 7. Disproportion reconstructed breasts. 8. History of breast reduction mammaplasty. 9. History of mastectomy right breast. 10. History of MRSA. 11. Former smoker. Post-Operative Diagnosis: Same. Surgery/Procedure Performed:: Prophylactic mastectomy left breast. Description of Surgical Findings:: Patient comes in today for re-evaluation of her recurrent infection left breast. The redness resolved after starting Levaquin antibiotics. She still has persistent pain in the left breast. She denies trauma. She already has wo rsening left breast pain as well as increased neck pain and thoracic back pain that is being aggravated by her breast asymmetry since she has an acquired absence right breast after her mastectomy. She has tried external prostheses for symmetry but the left breast is heavier than the prosthesis so the symptomatology is still persistent. Since her right breast implant was removed last April secondary to infection, I told her that we would have to wait at least a year before considering placing another tissue golf sales manager in the right breast followed by replacement cohesive gel implant. However the patient is concerned because she has had previous infections in the left breast. Her persistent infections in the right breast led to an eventual mastectomy. She comes in today for further evaluation and treatment regarding her recurrent left breast infection. She denies fever. She denies trauma. She had a mammogram and ultrasound on 02/03/19. They were normal without evidence of suspicious masses or infection. She had a repeat Ultrasound on 05/20/19 which showed no evidence of cystic or solid lesion visualized in the region of concern. She has completed her Levaquin antibiotics and has not noticed any more redness. Patient was informed of the risks and complications of the procedure including alternatives to surgery. These were discussed with the patient personally. Patient voices understanding and wishes to proceed. Some of the risks and complications were included in a form from the [employer]. I used Kiya absorbable hemostat, (I used 2 vials). Reference Number - [id number]. Lot Number - [id number]. Expiration - July 26, 2023. guest relations manager: Kostohryz,Bubba A - [employer]. Type of Anesthesia:: General Specimen's removed: Left breast tissue to Pathology and Microbiology. Drains: Elijah x2. Estimated Blood Loss (mL): 150 ml. Description of Procedure: Patient was placed in sitting position in preop area and markings were made. I marked the inframammary fold and horizontal elliptical markings around the nipple area. Patient lifted her arms up to make sure not too much skin will be removed laterally. Patient was then taken to OR in supine position and was pl aced under general anesthesia. The breasts were prepped and draped in the usual fashion. Ioban drape was also placed around the left breast. SCD's were placed for DVT prophylaxis. Perioperative antibiotics were given intravenously. Using xylocaine with epinephrine, the horizontal elliptical markings were infiltrated. After waiting 5 minutes for the anesthetic to take effect, I proceeded with prophylactic mastectomy with an elliptical incision were into the subcutaneous tissue. I dissected the left breast tissue at the level of Georgina's fascia down to the pectoralis major muscular fascia. I dissected superiorly to the clavicle and medially to the sternum and inferiorly to the inframammary fold and laterally to the anterior axillary line. The left breast tissue was then dissected off the pectoralis major muscular fascia and sent to Pathology for analysis to rule out carcinoma. The left breast wound was irrigated with saline. Hemostasis was obtained with electrocautery. I placed two size 15 Elijah drains through separate stab incisions inferolaterally and secured to the skin with 3-0 Nylon suture. I then sprayed Kiya absorbable hemostat into the left breast wound to minimize seroma formation. I used 2 vials. The left breast wound was then closed in a layered fashion with 3-0 Monocryl interrupted sutures for the deep subcutaneous tissue. The deep dermis and subcutaneous tissue was approximated with 3-0 Monocryl interrupted sutures. The skin was approximated with 3-0 V lock unidirectional barbed running subcuticular suture followed by Histoacryl skin tissue adhesive. Kerlix gauze dressing was applied followed by a compression LILLY wrap. Patient tolerated the procedure well and was sent to PACU in satisfactory condition. Patient will be sent upstairs for continued postop care. A PICC line will be placed and Vancomycin continued because of her history of MRSA. Grafts/Implants Used: None. - Complications None. - Admit VTE Documentation VTE Present on Admission: No VTE Mechan Device Prophylaxis: SCD's VTE Pharm Prophylaxis ordered?: Yes Code Visit Surgery Charges CPT - 32604 ICD-10 - N61.1, N64.4, Z98.890, N65.1, M54.2, M54.6, Z40.01, Z90.11, Z86.14, Z87.891
[2019-08-31] MEDS: Lactated Ringers 1,000 ML 60 ML IV (12:41)
[2019-08-31] MEDS: oxyCODONE 5 MG Tablet PO ×3 (13:19→21:24)
[2019-08-31] MEDS: HYDROmorphone 1 MG/ML Syringe IV ×3 (15:28→23:07)
[2019-08-31] MEDS: 0.9% Saline Lock 10 ML Syringe IV ×4 (15:34→21:31)
--- NOTE | 2019-08-31 17:05 | PCM.RX.CS ---
Consult Pharmacy has been consulted to manage selected antiobiotic: Vancomycin Type of Consult: New start Suspected Infection: Skin/Soft tissue Prior Doses of Antibiotics Received/Current Regimen: Pt received Vancomycin 15mg/kg x1 preop dose on 08/31/19 at 0924 Weight used for dosin kg Estimated Creatinine Clearance: 107ml/min Goal Trough: 10-15 mcg/mL Pharmacy Plan for Drug Dosing: Initial recommendation based off of pt's weight and crcl is for pt to receive Vancomycin 1750mg q12h starting 12h after the preop dose. Trough will be drawn before the 4th total dose on 09/01/19 at 2130 Pharmacy Service will continue to monitor and adjust dosing as required. Follow-Up Labs: Trough Vancomycin - 09/01/19 at 2100
[2019-08-31] MEDS: Gabapentin 100 MG Capsule 200 MG PO (17:20)
[2019-08-31] MEDS: Calcium Carb/Vitamin D 1 TABLET Tablet PO (17:21)
[2019-08-31] MEDS: Ensure Surgery 237 ML LIQUID PO (17:26)
[2019-08-31] MEDS: Ascorbic Acid 500 MG Tablet 1000 MG PO (21:26)
[2019-08-31] MEDS: diazePAM 5 MG Tablet PO (21:26)
[2019-08-31] MEDS: Docusate Sodium 100 MG Capsule PO (21:26)
[2019-08-31] MEDS: Magnesium Oxide 400 MG Tablet PO (21:27)
[2019-08-31] MEDS: Iron Polysaccharide Complex 150 MG CAPSULE PO (21:27)
[2019-08-31] MEDS: Nortriptyline 25 MG Capsule 50 MG PO (21:27)
[2019-08-31] MEDS: Zolpidem Tartrate 5 MG Tablet PO (22:50)
[2019-09-01 01:55] VITALS: BP 146/72; PULSE 90; RESP 18; TEMP 37.1; O2SAT 95
[2019-09-01] MEDS: oxyCODONE 5 MG Tablet PO ×2 (01:55→08:05)
[2019-09-01] MEDS: Acetaminophen 500 MG Tablet 1000 MG PO ×4 (01:56→17:54)
[2019-09-01] MEDS: HYDROmorphone 1 MG/ML Syringe IV ×5 (05:27→21:00)
[2019-09-01] MEDS: 0.9% Saline Lock 10 ML Syringe IV ×6 (05:28→21:00)
[2019-09-01] MEDS: Levothyroxine 100 MCG Tablet 200 MCG PO (05:28)
[2019-09-01 05:30] LABS: Hematocrit 37.2 % (37-47); Hemoglobin 11.6 g/dL (12.0-15.0); Mean Corp Hgb Conc 31.2 g/dL (32-36); Mean Corpuscular Volume 96.1 fL (81-99); Mean Platelet Vol. 9.9 fl (6.2-12.0); Platelet Count 262 K/mm3 (150-450); RBC Distribution Width CV 14.3 % (11.6-14.6); RBC Distribution Width SD 50.4 fl (35.1-43.9); Red Blood Count 3.87 M/mm3 (4.2-5.4); White Blood Count 8.2 K/mm3 (4.4-11.0)
[2019-09-01 05:57] LABS: AST(SGOT) 16 U/L (15-37); Alanine Aminotransfer ALT/SGPT 21 U/L (13-56); Albumin, Serum 3.3 g/dL (3.2-5.0); Alkaline Phosphatase 76 U/L (45-117); Anion Gap 5 (5-15); BUN 11 mg/dL (7-18); Calcium,Total 8.1 mg/dL (8.5-10.1); Chloride 104 mmol/L (98-107); Creatinine, Serum 0.69 mg/dL (0.55-1.02); EST Glomerular Filtration Rate 97 mL/min (>60); Est Glom Filt Rate - Afr Amer 118 mL/min (>60); Estimated Creatinine Clearance 98.02 ml/min; Globulin 3.3 g/dL (2.2-4.2); Glucose 97 mg/dL (74-106); Potassium 4.1 mmol/L (3.5-5.1); Prealbumin 26.3 mg/dL (20.0-40.0); Protein, Total 6.6 g/dL (6.4-8.2); Sodium Level 138 mmol/L (136-145)
[2019-09-01 06:37] LABS: Erythrocyte Sedimentation Rate 40 mm/hr (0-20)
[2019-09-01 07:36] VITALS: O2SAT 95
[2019-09-01 07:55] VITALS: BP 152/89; PULSE 88; RESP 18; TEMP 36.5; O2SAT 98
[2019-09-01] MEDS: diazePAM 5 MG Tablet PO (08:05)
[2019-09-01] MEDS: Ensure Surgery 237 ML LIQUID PO ×3 (08:06→16:18)
[2019-09-01] MEDS: Gabapentin 100 MG Capsule 200 MG PO ×3 (08:06→16:22)
[2019-09-01] MEDS: Docusate Sodium 100 MG Capsule PO ×2 (08:07→22:04)
[2019-09-01] MEDS: Iron Polysaccharide Complex 150 MG CAPSULE PO ×2 (08:07→22:02)
[2019-09-01] MEDS: FLUoxetine 20 MG Capsule 40 MG PO (08:08)
[2019-09-01] MEDS: Ascorbic Acid 500 MG Tablet 1000 MG PO ×2 (08:09→22:03)
[2019-09-01] MEDS: buPROPion (XL) 150 MG TABLET.XL 450 MG PO (08:09)
[2019-09-01] MEDS: Enoxaparin 40 MG/0.4 ML Syringe SC (09:22)
--- NOTE | 2019-09-01 11:30 | CASEMGMT ---
NERY MEEKS updated that patient will need IV ATBs at discharge. NERY MEEKS in to discuss HHC and Infusion companies. NERY MEEKS provided patient with list of in-network facilities. Patient would like [facility] for HHC and [facility] for infusion company. NERY MEEKS sent referrals to both [facility] and [facility]. NERY MEEKS awaiting call back.
[2019-09-01] MEDS: DiphenhydrAMINE 25 MG Capsule 50 MG PO ×2 (11:45→21:58)
[2019-09-01] MEDS: Multivitamins,Ther W-Minerals Tablet 1 TABLET PO (12:46)
[2019-09-01] MEDS: Calcium Carb/Vitamin D 1 TABLET Tablet PO ×2 (12:47→16:22)
[2019-09-01 14:00] VITALS: BP 121/70; PULSE 88; RESP 18; TEMP 36.7; O2SAT 96
--- NOTE | 2019-09-01 14:04 | CASEMGMT ---
Intro role of CM to patient and [employer] form explained re: Observation status for treatment of mastectomy. Explained hospitalization will be paid per? insurance policy for Outpatient billing?and condition will continue to be evaluated for Inpt necessity. Also let pt know that [facility] sends paper in the billing packet with their phone number if questions arise. Discussed Pharmacy section of [employer] form and self administered medication guideline.? Pt verbalizes understanding and does not have further questions. Form signed and placed in chart, copy to pt. GOMEZ GABRIEL BSN CM
--- NOTE | 2019-09-01 15:47 | CASEMGMT ---
RN CONSTANTINO received call back from [facility] and they are not able to accept patient due to staffing. NERY CM in to discuss second choice for HHC. Patient would like [facility]. NERY MEEKS sent referral and awaiting acceptance. NERY MEEKS received call from [facility] and cost per week is $1.25. RN CM updated the patient. CM will continue to follow this patient and plan for a safe discharge.
--- NOTE | 2019-09-01 18:37 | PCM.PN.SRG ---
Subjective: Postop #1 Patient complains of incisional pain. - Physical Exam Vitals/I&O's: Vital Signs Temp Pulse Resp BP Pulse Ox 98.0 F 88 18 121/70 H 96 09/01/19 14:00 09/01/19 14:00 09/01/19 14:00 09/01/19 14:00 09/01/19 14:00 Oxygen Flow Rate (L/min) 6 Oxygen Delivery Method Room Air Weight: 281 lb 1.43 oz Body Mass Index (BMI) 44.0 Intake and Output for Last 24 Hours 08/30/19 08/31/19 09/01/19 23:59 23:59 23:59 Intake Total 2646.75 / 2646.75 2722.25 / 2722.25 Output Total 1035 / 1035 4830 / 4830 Balance 1611.75 / 1611.75 -2107.75 / -2107.75 Drainage 135 ml yesterday, 230 ml today. General: Alert, Oriented x3 HEENT: PERRLA, EOMI Oral: Moist Mucosa Neck: Supple Abdomen: Soft, Non-Distended Skin: Incision - left mastectomy incision is dry and intact. Minor bruising is noted laterally. Will observe. No clinical evidence of hematoma. Neurological: Cranial nerves II-XII grossly intact Psych/Mental Status: Normal Affect, Appropriate Microbiology Past 72 Hours 08/31/19 11:37 Tissue - Breast Gram Stain - Final 08/31/19 11:37 Tissue - Breast Wound Culture - Preliminary No growth-Final to follow Laboratory Results 09/01/19 05:07: Sodium 138, Potassium 4.1, Chloride 104, Carbon Dioxide 29.0, Anion Gap 5, BUN 11, Creatinine 0.69, Estim Creat Clear Calc 98.02, Est GFR (MDRD) Af Amer 118, Est GFR (MDRD) Non-Af 97, BUN/Creatinine Ratio 16.0, Glucose 97, Calcium 8.1 L, Total Bilirubin 0.40, AST 16, ALT 21, Alkaline Phosphatase 76, C-React Prot Ext Range 15.80 H, Total Protein 6.6, Albumin 3.3, Globulin 3.3, Albumin/Globulin Ratio 1.0, Prealbumin 26.3 09/01/19 05:07: WBC 8.2, RBC 3.87 L, Hgb 11.6 L, Hct 37.2, MCV 96.1, MCH 30.0, MCHC 31.2 L, RDW Std Deviation 50.4 H, RDW Coeff of Pratik 14.3, Plt Count 262, MPV 9.9, ESR 40 H Current Medications Acetaminophen (Tylenol) 1,000 mg PO Q6 [facility] Last Admin: 09/01/19 17:54 Dose: 1,000 mg Documented by: Ascorbic Acid (Vitamin C) 1,000 mg PO BID [facility] Last Admin: 09/01/19 08:09 Dose: 1,000 mg Documented by: Bupropion HCl (Wellbutrin Xl) 450 mg PO DAILY [facility] Last Admin: 09/01/19 08:09 Dose: 450 mg Documented by: Calcium/Vitamin D (Os-Alfredo 500mg + D) 1 tablet PO BID@1200,1700 [facility] Last Admin: 09/01/19 16:22 Dose: 1 tablet Documented by: Cholecalciferol (Vitamin D) 2,000 unit PO DAILY [facility] Last Admin: 09/01/19 08:09 Dose: 2,000 unit Documented by: Diazepam (Valium) 5 mg PO 4X/DAY PRN PRN PRN Reason: SPASMS Last Admin: 09/01/19 08:05 Dose: 5 mg Documented by: Diphenhydramine HCl (Benadryl) 50 mg PO Q6H PRN PRN Reason: ITCHING Last Admin: 09/01/19 11:45 Dose: 50 mg Documented by: Docusate Sodium (Colace) 100 mg PO BID [facility] Last Admin: 09/01/19 08:07 Dose: 100 mg Documented by: Enoxaparin Sodium (Lovenox) 40 mg SC DAILY [facility] Last Admin: 09/01/19 09:22 Dose: 40 mg Documented by: Enteral Nutritional Formula (Ensure Surgery) 237 ml PO TIDCM [facility] Last Admin: 09/01/19 16:18 Dose: 237 ml Documented by: Fluoxetine HCl (Prozac) 40 mg PO DAILY [facility] Last Admin: 09/01/19 08:08 Dose: 40 mg Documented by: Gabapentin (Neurontin) 200 mg PO TIDCM [facility] Last Admin: 09/01/19 16:22 Dose: 200 mg Documented by: Heparin Sodium (Beef Lung) () 50 units IV UD PRN PRN Reason: PICC Line Heparin Flush Hydromorphone HCl (Dilaudid Inj) 0.5 - 1 mg IV Q3H PRN PRN PRN Reason: Pain Score 6-10/10 Last Admin: 09/01/19 16:17 Dose: 1 mg Documented by: Vancomycin IV Pharmacy to Dose (1 ea/ Sodium Chloride) 500 mls @ 250 mls/hr IV X1 PRN; Protocol PRN Reason: Rx to Dose Sodium Chloride () 250 mls @ 15 mls/hr IV .[id number] PRN PRN Reason: Saline Flush Last Infusion: 09/01/19 16:07 Dose: Infused Documented by: Vancomycin HCl 1,750 mg/ (Sodium Chloride) 535 mls @ 250 mls/hr IV Q12H [facility] Last Infusion: 09/01/19 11:31 Dose: Infused Documented by: Insulin Human Lispro (Humalog Kwikpen (Bkc)) 1 - 6 unit SC Q4H PRN PRN; Protocol PRN Reason: BG>/= 180, SEE PROTOCOL Levothyroxine Sodium (Synthroid) 200 mcg PO DAILY@0600 [facility] Last Admin: 09/01/19 05:28 Dose: 200 mcg Documented by: Magnesium Oxide (Mag-Ox 400) 400 mg PO QHS [facility] Last Admin: 08/31/19 21:27 Dose: 400 mg Documented by: Magnesium Oxide (Mag-Ox 400) 400 mg PO BID PRN PRN PRN Reason: Constipation Multivitamins/Minerals (Multivitamin With Minerals) 1 tablet PO DAILY@1200 [facility] Last Admin: 09/01/19 12:46 Dose: 1 tablet Documented by: Nortriptyline HCl (Pamelor) 50 mg PO QHS [facility] Last Admin: 08/31/19 21:27 Dose: 50 mg Documented by: Ondansetron HCl (Zofran Odt) 4 mg PO Q6H PRN PRN PRN Reason: NAUSEA Oxycodone HCl (Oxyir) 5 - 10 mg PO Q4H PRN PRN PRN Reason: Pain Score 4-10/10 Last Admin: 09/01/19 08:05 Dose: 10 mg Documented by: Polysaccharide Iron Complex (Ferrex 150) 150 mg PO BID [facility] Last Admin: 09/01/19 08:07 Dose: 150 mg Documented by: Sodium Chloride () 10 - 40 ml IV UD PRN PRN Reason: Open End PICC Flush Last Admin: 09/01/19 16:17 Dose: 10 ml Documented by: Sodium Chloride (0.9% Nacl (Sterile) Posiflush) 10 - 40 ml IV UD PRN PRN Reason: Port access or dressing change Sodium Chloride () 10 - 40 ml IV UD PRN PRN Reason: SALINE FLUSH Zolpidem Tartrate (Ambien (Generic)) 5 mg PO QHS PRN PRN PRN Reason: SLEEP Last Admin: 08/31/19 22:50 Dose: 5 mg Documented by: Medical Necessity - Tobacco Use Smoking Status: Former smoker Assessment/Plan All Active Problems (Last Reviewed 06/16/19 @ 15:26 by Tiff Abdi) Left arm swelling (Resolved) Seroma of breast (Acute) Breast implant removal status (Acute) Breast implant status (Acute) Cellulitis of right breast (Acute) Septic shock (Acute) Infected wound (Acute) Open wound of right breast (Acute) 1. Painful recurrent infection left breast. 2. History of recurrent infection right breast. 3. Acquired absence right breast. 4. Painful breast asymmetry secondary to right mastectomy. 5. Neck pain. 6. Thoracic back pain. 7. Disproportion reconstructed breasts. 8. History of breast reduction mammaplasty. 9. History of mastectomy right breast. 10. History of MRSA. 11. Former smoker. 12. s/p prophylactic mastectomy left breast. Patient complains of incisional pain. Incision is dry and intact. Minor bruising noted laterally. Will observe. Prealbumin was 26.3. Encourage nutritional supplementation with protein to help the healing process. PICC line placed. With her history of MRSA, continue Vancomycin. Operative culture is pending thus far. Continue chest wall binder. Continue lifting restriction and head elevation. Arranging Home Health for the IV antibiotics and weekly labs. Anticipate discharge tomorrow.
[2019-09-01 21:07] VITALS: BP 135/74; PULSE 87; RESP 18; TEMP 36.6; O2SAT 97
[2019-09-01 21:43] LABS: Vancomycin, Trough Level 8.8 ug/mL (5.0-15.0)
[2019-09-01] MEDS: Zolpidem Tartrate 5 MG Tablet PO (21:58)
[2019-09-01] MEDS: Nortriptyline 25 MG Capsule 50 MG PO (22:02)
[2019-09-01] MEDS: Magnesium Oxide 400 MG Tablet PO (22:03)
[2019-09-02] MEDS: 0.9% Saline Lock 10 ML Syringe IV (00:52)
[2019-09-02] MEDS: diazePAM 5 MG Tablet PO (00:53)
[2019-09-02] MEDS: oxyCODONE 5 MG Tablet PO ×3 (00:57→14:57)
--- NOTE | 2019-09-02 01:49 | PCM.RX.CS ---
Consult Pharmacy has been consulted to manage selected antiobiotic: Vancomycin Type of Consult: Follow-up Labs: Sodium 138 mmol/L (136-145) 09/01/19 05:07 Potassium 4.1 mmol/L (3.5-5.1) 09/01/19 05:07 Chloride 104 mmol/L (98-107) 09/01/19 05:07 Carbon Dioxide 29.0 mmol/L (21.0-32.0) 09/01/19 05:07 Anion Gap 5 (5-15) 09/01/19 05:07 BUN 11 mg/dL (7-18) 09/01/19 05:07 Creatinine 0.69 mg/dL (0.55-1.02) 09/01/19 05:07 Est GFR (MDRD) Af Amer 118 mL/min (>60) 09/01/19 05:07 Est GFR (MDRD) Non-Af 97 mL/min (>60) 09/01/19 05:07 BUN/Creatinine Ratio 16.0 RATIO (10-20) 09/01/19 05:07 Glucose 97 mg/dL (74-106) 09/01/19 05:07 Vancomycin Trough 8.8 ug/mL (5.0-15.0) 09/01/19 21:08 Microbiology: Microbiology 08/31/19 11:37 Tissue - Breast Gram Stain - Final 08/31/19 11:37 Tissue - Breast Wound Culture - Preliminary No growth-Final to follow Goal Trough: 10-15 mcg/mL Pharmacy Plan for Drug Dosing: Pharmacy Service will continue to monitor and adjust dosing as required. TROUGH 8.8 INCREASE TO 2000MG Q12H NEXT TROUGH 09/03 @ 1929 Follow-Up Labs: Trough Vancomycin Labs to be done on [date and time ordered]: 09/03 @ 1929
[2019-09-02] MEDS: Acetaminophen 500 MG Tablet 1000 MG PO ×3 (02:00→13:14)
[2019-09-02 02:02] VITALS: BP 155/70; PULSE 92; RESP 16; TEMP 36.8; O2SAT 94
[2019-09-02] MEDS: Levothyroxine 100 MCG Tablet 200 MCG PO (06:28)
[2019-09-02 07:52] VITALS: BP 163/69; PULSE 88; RESP 16; TEMP 36.5; O2SAT 96
[2019-09-02] MEDS: Ensure Surgery 237 ML LIQUID PO ×2 (09:07→11:06)
[2019-09-02] MEDS: HYDROmorphone 1 MG/ML Syringe IV (09:07)
[2019-09-02] MEDS: Gabapentin 100 MG Capsule 200 MG PO ×2 (09:10→11:05)
[2019-09-02] MEDS: Docusate Sodium 100 MG Capsule PO (09:12)
[2019-09-02] MEDS: Iron Polysaccharide Complex 150 MG CAPSULE PO (09:13)
[2019-09-02] MEDS: Enoxaparin 40 MG/0.4 ML Syringe SC (09:14)
[2019-09-02] MEDS: FLUoxetine 20 MG Capsule 40 MG PO (09:15)
[2019-09-02] MEDS: Ascorbic Acid 500 MG Tablet 1000 MG PO (09:17)
[2019-09-02] MEDS: Multivitamins,Ther W-Minerals Tablet 1 TABLET PO (09:19)
[2019-09-02] MEDS: buPROPion (XL) 150 MG TABLET.XL 450 MG PO (09:19)
[2019-09-02 09:25] LABS: Hematocrit 35.1 % (37-47); Hemoglobin 10.8 g/dL (12.0-15.0); Mean Corp Hgb Conc 30.8 g/dL (32-36); Mean Corpuscular Hgb 29.7 pg (27.0-32.0); Mean Corpuscular Volume 96.4 fL (81-99); Mean Platelet Vol. 9.8 fl (6.2-12.0); Platelet Count 216 K/mm3 (150-450); RBC Distribution Width CV 14.1 % (11.6-14.6); RBC Distribution Width SD 50.3 fl (35.1-43.9); Red Blood Count 3.64 M/mm3 (4.2-5.4); White Blood Count 5.4 K/mm3 (4.4-11.0)
[2019-09-02 09:40] VITALS: O2SAT 96
[2019-09-02 09:42] LABS: Anion Gap 6 (5-15); BUN 10 mg/dL (7-18); BUN/Creat Ratio 15.1 RATIO (10-20); Calcium,Total 8.1 mg/dL (8.5-10.1); Chloride 107 mmol/L (98-107); Creatinine, Serum 0.66 mg/dL (0.55-1.02); EST Glomerular Filtration Rate 101 mL/min (>60); Est Glom Filt Rate - Afr Amer 123 mL/min (>60); Estimated Creatinine Clearance 102.47 ml/min; Glucose 143 mg/dL (74-106); Potassium 3.9 mmol/L (3.5-5.1); Sodium Level 141 mmol/L (136-145)
--- NOTE | 2019-09-02 11:00 | CASEMGMT ---
NERY MEEKS received script for IV Vancomycin. NERY MEEKS sent script to [facility]. NERY MEEKS updated that patient. Start of care for today at 8pm. Patient had no further needs or concerns at this time.
[2019-09-02] MEDS: Calcium Carb/Vitamin D 1 TABLET Tablet PO (11:05)
--- NOTE | 2019-09-02 11:45 | PN.SURG_ITS ---
Subjective: Postop #2 Patient complains of incisional pain. Tolerating po analgesia. - Physical Exam Vitals/I&O's: Vital Signs Temp Pulse Resp BP Pulse Ox 97.7 F L 88 16 163/69 H 96 09/02/19 07:52 09/02/19 07:52 09/02/19 07:52 09/02/19 07:52 09/02/19 09:40 Oxygen Flow Rate (L/min) 6 Oxygen Delivery Method Room Air Weight: 281 lb 1.43 oz Body Mass Index (BMI) 44.0 Intake and Output for Last 24 Hours 08/31/19 09/01/19 09/02/19 23:59 23:59 23:59 Intake Total 2646.75 / 2646.75 2722.25 / 2722.25 3115 / 3115 Output Total 1035 / 1035 4830 / 4830 1890 / 1890 Balance 1611.75 / 1611.75 -2107.75 / -2107.75 1225 / 1225 Drainage 190 ml today. General: Alert, Oriented x3 HEENT: PERRLA, EOMI Oral: Moist Mucosa Neck: Supple Abdomen: Soft, Non-Distended Skin: Incision - left mastectomy incision is dry and intact. Minor area of bruising laterally is resolving. No clinical evidence of hematoma. Neurological: Cranial nerves II-XII grossly intact Psych/Mental Status: Normal Affect, Appropriate Microbiology Past 72 Hours 08/31/19 11:37 Tissue - Breast Gram Stain - Final 08/31/19 11:37 Tissue - Breast Wound Culture - Final No growth aerobically. 08/31/19 11:37 Tissue - Breast Anaerobic Culture - Preliminary No growth in 48 hours. Laboratory Results 09/01/19 21:08: Vancomycin Trough 8.8 09/02/19 09:08: WBC 5.4, RBC 3.64 L, Hgb 10.8 L, Hct 35.1 L, MCV 96.4, MCH 29.7, MCHC 30.8 L, RDW Std Deviation 50.3 H, RDW Coeff of Pratik 14.1, Plt Count 216, MPV 9.8 09/02/19 09:08: Sodium 141, Potassium 3.9, Chloride 107, Carbon Dioxide 28.0, Anion Gap 6, BUN 10, Creatinine 0.66, Estim Creat Clear Calc 102.47, Est GFR (MDRD) Af Amer 123, Est GFR (MDRD) Non-Af 101, BUN/Creatinine Ratio 15.1, Glucose 143 H, Calcium 8.1 L Current Medications Acetaminophen (Tylenol) 1,000 mg PO Q6 [facility] Last Admin: 09/02/19 08:00 Dose: 1,000 mg Documented by: Ascorbic Acid (Vitamin C) 1,000 mg PO BID [facility] Last Admin: 09/02/19 09:17 Dose: 1,000 mg Documented by: Bupropion HCl (Wellbutrin Xl) 450 mg PO DAILY [facility] Last Admin: 09/02/19 09:19 Dose: 450 mg Documented by: Calcium/Vitamin D (Os-Alfredo 500mg + D) 1 tablet PO BID@1200,1700 [facility] Last Admin: 09/02/19 11:05 Dose: 1 tablet Documented by: Cholecalciferol (Vitamin D) 2,000 unit PO DAILY [facility] Last Admin: 09/02/19 09:18 Dose: 2,000 unit Documented by: Diazepam (Valium) 5 mg PO 4X/DAY PRN PRN PRN Reason: SPASMS Last Admin: 09/02/19 00:53 Dose: 5 mg Documented by: Diphenhydramine HCl (Benadryl) 50 mg PO Q6H PRN PRN Reason: ITCHING Last Admin: 09/01/19 21:58 Dose: 50 mg Documented by: Docusate Sodium (Colace) 100 mg PO BID [facility] Last Admin: 09/02/19 09:12 Dose: 100 mg Documented by: Enoxaparin Sodium (Lovenox) 40 mg SC DAILY [facility] Last Admin: 09/02/19 09:14 Dose: 40 mg Documented by: Enteral Nutritional Formula (Ensure Surgery) 237 ml PO TIDCM [facility] Last Admin: 09/02/19 11:06 Dose: 237 ml Documented by: Fluoxetine HCl (Prozac) 40 mg PO DAILY [facility] Last Admin: 09/02/19 09:15 Dose: 40 mg Documented by: Gabapentin (Neurontin) 200 mg PO TIDCM [facility] Last Admin: 09/02/19 11:05 Dose: 200 mg Documented by: Heparin Sodium (Beef Lung) () 50 units IV UD PRN PRN Reason: PICC Line Heparin Flush Hydromorphone HCl (Dilaudid Inj) 0.5 - 1 mg IV Q3H PRN PRN PRN Reason: Pain Score 6-10/10 Last Admin: 09/02/19 09:07 Dose: 1 mg Documented by: Vancomycin IV Pharmacy to Dose (1 ea/ Sodium Chloride) 500 mls @ 250 mls/hr IV X1 PRN; Protocol PRN Reason: Rx to Dose Sodium Chloride () 250 mls @ 15 mls/hr IV .[id number] PRN PRN Reason: Saline Flush Last Infusion: 09/01/19 16:07 Dose: Infused Documented by: Vancomycin HCl 2,000 mg/ (Sodium Chloride) 540 mls @ 250 mls/hr IV Q12H [facility] Last Infusion: 09/02/19 10:39 Dose: Infused Documented by: Insulin Human Lispro (Humalog Kwsaravananpen (Bkc)) 1 - 6 unit SC Q4H PRN PRN; Protocol PRN Reason: BG>/= 180, SEE PROTOCOL Levothyroxine Sodium (Synthroid) 200 mcg PO DAILY@0600 [facility] Last Admin: 09/02/19 06:28 Dose: 200 mcg Documented by: Magnesium Oxide (Mag-Ox 400) 400 mg PO QHS [facility] Last Admin: 09/01/19 22:03 Dose: 400 mg Documented by: Magnesium Oxide (Mag-Ox 400) 400 mg PO BID PRN PRN PRN Reason: Constipation Multivitamins/Minerals (Multivitamin With Minerals) 1 tablet PO DAILY@1200 [facility] Last Admin: 09/02/19 09:19 Dose: 1 tablet Documented by: Nortriptyline HCl (Pamelor) 50 mg PO QHS [facility] Last Admin: 09/01/19 22:02 Dose: 50 mg Documented by: Ondansetron HCl (Zofran Odt) 4 mg PO Q6H PRN PRN PRN Reason: NAUSEA Oxycodone HCl (Oxyir) 5 - 10 mg PO Q4H PRN PRN PRN Reason: Pain Score 4-10/10 Last Admin: 09/02/19 06:28 Dose: 10 mg Documented by: Polysaccharide Iron Complex (Ferrex 150) 150 mg PO BID [facility] Last Admin: 09/02/19 09:13 Dose: 150 mg Documented by: Sodium Chloride () 10 - 40 ml IV UD PRN PRN Reason: Open End PICC Flush Last Admin: 09/02/19 00:52 Dose: 10 ml Documented by: Sodium Chloride (0.9% Nacl (Sterile) Posiflush) 10 - 40 ml IV UD PRN PRN Reason: Port access or dressing change Sodium Chloride () 10 - 40 ml IV UD PRN PRN Reason: SALINE FLUSH Zolpidem Tartrate (Ambien (Generic)) 5 mg PO QHS PRN PRN PRN Reason: SLEEP Last Admin: 09/01/19 21:58 Dose: 5 mg Documented by: Medical Necessity - Tobacco Use Smoking Status: Former smoker Assessment/Plan All Active Problems (Last Reviewed 06/16/19 @ 15:26 by Tiff Abdi) Left arm swelling (Resolved) Seroma of breast (Acute) Breast implant removal status (Acute) Breast implant status (Acute) Cellulitis of right breast (Acute) Septic shock (Acute) Infected wound (Acute) Open wound of right breast (Acute) 1. Painful recurrent infection left breast. 2. History of recurrent infection right breast. 3. Acquired absence right breast. 4. Painful breast asymmetry secondary to right mastectomy. 5. Neck pain. 6. Thoracic back pain. 7. Disproportion reconstructed breasts. 8. History of breast reduction mammaplasty. 9. History of mastectomy right breast. 10. History of MRSA. 11. Former smoker. 12. s/p prophylactic mastectomy left breast. Patient complains of incisional pain. Tolerating po analgesia. Incision is dry and intact. Minor bruising noted laterally is resolving. Prealbumin was 26.3. Encourage nutritional supplementation with protein to help the healing process. PICC line placed. With her history of MRSA, continue Vancomycin. Operative culture is negative thus far. Continue chest wall binder. Continue lifting restriction and head elevation. Home Health has been arranged for the IV antibiotics and weekly labs, (CBC, CMP, ESR, CRP, Vancomycin Trough). Discharge home today. Followup office one week. Will remove the drain in the office. Wrote scripts for Dilaudid for pain, 4 mg (40 tabs) and for Valium for spasm (30 tabs).
--- NOTE | 2019-09-02 11:51 | PCM.DC ---
You will use the following diet at home:: No restrictions, Other - encourage nutritional supplementation with protein to help the healing process. Discharge Activity: May not drive while taking narcotic pain medications., May Not Shower - until the drains are removed., - - keep head elevated. no heavy lifting. May shower in (days): 14 - after the drains are removed May resume sexual activity in: 10-14 days Weight Bearing Status: Weight bearing as tolerated Lifting Restrictions: 20 lbs. Keep extremity elevated above heart level: - - elevate head. Call your doctor if your incision/area has: Continuous Slow Oozing, Sudden Increased Bleeding, Increased Pain/ Swelling, Increased Redness, Foul Smelling Discharge, Swelling at the incision site Call your doctor if you observe: Fever of 101 or Higher, Coldness, Increased Pain, Shortness of breath, Chest pain, Calf discomfort, Uncontrolled pain Suture Line Care: - - dry dressings daily followed by chest wall binder. Change Dressing in (Days):: 1 - dry dressings daily followed by chest wall binder. Cleanse incision/area with: - - may get incision wet in the shower after the drains are removed in the office. Drain: Suction - khalida drain x2 to bulb suction. please empty and record output qdaily. Allergies/Adverse Reactions: Allergies codeine Allergy (Verified 08/31/19 07:46) Rash Penicillins Allergy (Verified 08/31/19 07:46) Rash NSAIDS (Non-Steroidal Anti-Inflamma Adverse Reaction (Verified 08/31/19 07:46) Other UNABLE TO TAKE DUE TO WEIGHT LOSS SURGERY Medications to take at Discharge Calcium Carbonate/Vitamin D3 [Calcium 600-Vit D3 400 Caplet] 1 ea PO BID 08/15/15 Cholecalciferol (VIT D3) [Vitamin D3] 2,000 unit PO DAILY 08/15/15 Multivitamins,Ther W-Minerals [Multivitamin With Minerals] 1 tab PO DAILY 08/15/15 Nortriptyline HCl [Pamelor] 50 mg PO QHS 04/03/16 buPROPion XL [Wellbutrin Xl] 450 mg PO DAILY 04/18/17 Iron Polysaccharide Complex [Ferrex 150] 150 mg PO BID 05/01/17 Acetaminophen [Tylenol] 1,000 mg PO Q8H PRN #1 tab 05/06/17 Ascorbic Acid [Vitamin C] 1,000 mg PO BID 12/03/17 Fluoxetine HCl [Prozac] 40 mg PO DAILY 12/03/17 Magnesium 250 mg PO QHS 12/03/17 Zolpidem Tartrate [Ambien] 10 mg PO QHS PRN 04/07/18 levothyroxine 175 mcg tablet 200 mcg PO DAILY 07/01/18 Diazepam [Valium] 5 mg PO 4X/DAY PRN PRN #30 tablet 09/02/19 DiphenhydrAMINE [Benadryl] 50 mg PO Q6H PRN capsule 09/02/19 Docusate Sodium [Colace] 100 mg PO BID capsule 09/02/19 Hydromorphone HCl [Dilaudid] 4 mg PO .[id number] PRN PRN 7 Days #40 tablet 09/02/19 Vancomycin IV 2,000 mg IV Q12H 40 Days #80 vial 09/02/19 The following prescriptions were given: Hydromorphone HCl [Dilaudid] 4 mg PO .[id number] PRN PRN 7 Days #40 tablet PRN Reason: Pain Score 4-5/10 Transmission Status: Sent to [address] Diazepam [Valium] 5 mg PO 4X/DAY PRN PRN #30 tablet PRN Reason: Spasms Transmission Status: Sent to [address] Vancomycin IV 2,000 mg IV Q12H 40 Days #80 vial Prescription Printed Orders to be completed after discharge: CBC-Complete Blood Cnt No Diff Time Frame: 08/24/19, Facility: [facility], Location: Laboratory Liver Profile Time Frame: 08/24/19, Facility: [facility], Location: Laboratory Partial Thromboplast Time Time Frame: 08/24/19, Facility: [facility], Location: Laboratory Prothrombin Time w/INR Time Frame: 08/24/19, Facility: [facility], Location: Laboratory Thyroid Stim Hormone (TSH) Time Frame: 08/24/19, Facility: [facility], Location: Laboratory Primary Care Physician: Eduardo Peters DO [Primary Care Provider] - Test Results: Test results from this visit will be discussed in further detail at your follow-up appointment, if applicable. Please Follow Up With: Sean Stevenson MD When: one week. call [phone] for appt. Proposed Discharge Date: 09/02/19
[2019-09-02 13:28] VITALS: BP 140/70; PULSE 92; RESP 16; TEMP 36.5; O2SAT 96
== END 2019-09-02 15:07 | disposition home or self-care (01) ==
LOC: MS3 12:13
PROVIDERS: Admitting Provider Surgery; Family Provider Student in an Organized Health Care Education/Training Program; PCP Student in an Organized Health Care Education/Training Program; Referring Provider Surgery; Visit Provider Surgery
PROC: (CPT 19303; principal; 2019-08-31 08:45)
DX: Z40.01 Encounter for prophylactic removal of breast (principal); N64.4 Mastodynia; N65.1 Disproportion of reconstructed breast; N61.1 Abscess of the breast and nipple; M54.2 Cervicalgia; M54.6 Pain in thoracic spine; Z23 Encounter for immunization; E03.9 Hypothyroidism, unspecified; F41.9 Anxiety disorder, unspecified; F32.9 Major depressive disorder, single episode, unspecified; I10 Essential (primary) hypertension; D64.9 Anemia, unspecified; E78.1 Pure hyperglyceridemia; E05.00 Thyrotoxicosis with diffuse goiter without thyrotoxic crisis or storm; E66.01 Morbid (severe) obesity due to excess calories; Z68.41 Body mass index [BMI] 40.0-44.9, adult; Z71.3 Dietary counseling and surveillance; Z86.14 Personal history of Methicillin resistant Staphylococcus aureus infection; Z87.891 Personal history of nicotine dependence; Z79.899 Other long term (current) drug therapy; Z90.11 Acquired absence of right breast and nipple; Z98.84 Bariatric surgery status; Z86.2 Personal history of diseases of the blood and blood-forming organs and certain disorders involving the immune mechanism
CPT/HCPCS: 00400; 19303; 36415; 36569; 80048; 80053; 80076; 80202; 82962; 84134; 84443; 85027; 85610; 85652; 85730; 86140; 87070; 87075; 87102; 87205; 87206; 88307; 96365; 96366; 96372; 96375; 96376; 99218; 99251; J7040; J7050; J7120; 90686; A4216; G0378; G0379; G0463; J2405

== ENCOUNTER → 2019-09-06 10:05 | Outpatient (CLI) | payer MEDICARE, MEDICAID, SELFPAY ==
[2019-08-31 07:44] VITALS: BMI 44.0
[2019-09-06 10:22] LABS: Hematocrit 37.4 % (37-47); Hemoglobin 11.5 g/dL (12.0-15.0); Mean Corp Hgb Conc 30.7 g/dL (32-36); Mean Corpuscular Hgb 29.6 pg (27.0-32.0); Mean Corpuscular Volume 96.1 fL (81-99); Mean Platelet Vol. 10.1 fl (6.2-12.0); Platelet Count 294 K/mm3 (150-450); RBC Distribution Width CV 14.2 % (11.6-14.6); RBC Distribution Width SD 50.1 fl (35.1-43.9); Red Blood Count 3.89 M/mm3 (4.2-5.4); White Blood Count 6.1 K/mm3 (4.4-11.0)
[2019-09-06 10:31] LABS: Erythrocyte Sedimentation Rate 80 mm/hr (0-20)
[2019-09-06 10:39] LABS: ALB/GLOB Ratio 0.9 RATIO (0.9-2.4); AST(SGOT) 39 U/L (15-37); Alanine Aminotransfer ALT/SGPT 90 U/L (13-56); Albumin, Serum 3.3 g/dL (3.2-5.0); Alkaline Phosphatase 118 U/L (45-117); Anion Gap 3 (5-15); BUN 8 mg/dL (7-18); BUN/Creat Ratio 13.2 RATIO (10-20); Calcium,Total 8.8 mg/dL (8.5-10.1); Chloride 104 mmol/L (98-107); EST Glomerular Filtration Rate 113 mL/min (>60); Est Glom Filt Rate - Afr Amer 136 mL/min (>60); Globulin 3.6 g/dL (2.2-4.2); Glucose 87 mg/dL (74-106); Potassium 4.3 mmol/L (3.5-5.1); Protein, Total 6.9 g/dL (6.4-8.2); Sodium Level 139 mmol/L (136-145)
== END ==
PROVIDERS: Family Provider Student in an Organized Health Care Education/Training Program; PCP Student in an Organized Health Care Education/Training Program; Referring Provider Surgery; Visit Provider Surgery
DX: A41.9 Sepsis, unspecified organism (principal)
CPT/HCPCS: 80053; 85027; 85652; 86140

== ENCOUNTER → 2019-09-08 10:02 | Outpatient (CLI) | payer MEDICARE, MEDICAID, SELFPAY ==
[2019-08-31 07:44] VITALS: BMI 44.0
[2019-09-08 10:31] LABS: Vancomycin, Trough Level 13.3 ug/mL (5.0-15.0)
== END ==
PROVIDERS: Family Provider Student in an Organized Health Care Education/Training Program; PCP Student in an Organized Health Care Education/Training Program; Referring Provider Surgery; Visit Provider Surgery
DX: N61.1 Abscess of the breast and nipple (principal); N64.4 Mastodynia; Z86.14 Personal history of Methicillin resistant Staphylococcus aureus infection
CPT/HCPCS: 80202

== ENCOUNTER → 2019-09-13 09:21 | Outpatient (CLI) | payer MEDICARE, MEDICAID, SELFPAY ==
[2019-09-09 14:50] VITALS: BMI 44.0
[2019-09-13 09:36] LABS: Erythrocyte Sedimentation Rate 66 mm/hr (0-20)
[2019-09-13 09:38] LABS: Hematocrit 37.8 % (37-47); Hemoglobin 11.8 g/dL (12.0-15.0); Mean Corp Hgb Conc 31.2 g/dL (32-36); Mean Corpuscular Hgb 29.9 pg (27.0-32.0); Mean Corpuscular Volume 95.9 fL (81-99); Mean Platelet Vol. 9.9 fl (6.2-12.0); Platelet Count 333 K/mm3 (150-450); RBC Distribution Width CV 14.5 % (11.6-14.6); RBC Distribution Width SD 50.5 fl (35.1-43.9); Red Blood Count 3.94 M/mm3 (4.2-5.4); White Blood Count 7.3 K/mm3 (4.4-11.0)
[2019-09-13 09:56] LABS: ALB/GLOB Ratio 0.9 RATIO (0.9-2.4); AST(SGOT) 25 U/L (15-37); Alanine Aminotransfer ALT/SGPT 39 U/L (13-56); Albumin, Serum 3.3 g/dL (3.2-5.0); Alkaline Phosphatase 94 U/L (45-117); Anion Gap 4 (5-15); BUN 9 mg/dL (7-18); BUN/Creat Ratio 12.9 RATIO (10-20); Calcium,Total 8.7 mg/dL (8.5-10.1); Chloride 104 mmol/L (98-107); EST Glomerular Filtration Rate 95 mL/min (>60); Est Glom Filt Rate - Afr Amer 115 mL/min (>60); Globulin 3.8 g/dL (2.2-4.2); Glucose 87 mg/dL (74-106); Potassium 4.2 mmol/L (3.5-5.1); Protein, Total 7.1 g/dL (6.4-8.2); Sodium Level 138 mmol/L (136-145); Vancomycin, Trough Level 15.6 ug/mL (5.0-15.0)
== END ==
PROVIDERS: Family Provider Student in an Organized Health Care Education/Training Program; PCP Student in an Organized Health Care Education/Training Program; Referring Provider Surgery; Visit Provider Surgery
DX: A41.9 Sepsis, unspecified organism (principal)
CPT/HCPCS: 80053; 80202; 85027; 85652

== ENCOUNTER 2019-09-18 12:55 | Emergency (ER) | payer MEDICARE, MEDICAID, SELFPAY ==
[2019-09-16 14:33] VITALS: BMI 44.0
[2019-09-18 12:56] VITALS: BP 166/101; PULSE 99; RESP 16; TEMP 37.1; O2SAT 98; BMI 43.8
--- NOTE | 2019-09-18 13:13 | RAD_ITS ---
STUDY: X-RAY CHEST REASON FOR EXAM: Female, 49 years old. Pt has right sided PICC line placed couple weeks ago -- part of it pulled out today- checking PICC line placement TECHNIQUE: Single view of the chest was obtained COMPARISON: May 01, 2017 FINDINGS: No consolidation, pleural effusion or pneumothorax. Cardiac size within normal limits. Slightly elevated hemidiaphragm. IMPRESSION: No acute cardiopulmonary pathology Electronically Signed: Jeff Mario, at 13:44 EST Tel , Service support , RAD/Chest 1 View (Portable)
--- NOTE | 2019-09-18 14:12 | ED.VISSUMM ---
- ER Visit Summary Date of Service: 09/18/19 Chief Complaint: PICC line displacement History of Present Illness: The patient is a 49 F who presents for possible displacement of her PICC line. Patient states she was showering today and when she was drying off she was moving some of her dressings and her PICC line started to come out. Patient states that only a portion of the PICC line came out. Patient denies any bleeding. Patient denies any redness or swelling. Patient needs her PICC line for her vancomycin. Patient had recent mastectomy and is on vancomycin for MRSA infection. Physical Examination: Vital signs are stable. Patient is afebrile. Patient is in no acute distress. Oral mucosa is pink and moist. Neck is supple. Trachea is midline. There is no JVD. Heart was regular rate and rhythm. Lungs are clear and equal bilaterally. Abdomen is soft and nontender. Skin is warm and dry. The mastectomy incision is healing well. There are no signs of infection. There is no discharge or drainage. The Darrin-Stephens drain is in place with some mild serosanguineous drainage. Cranial nerves II through XII are intact. There are no focal motor or sensory deficits noted. The PICC line insertion site in the right upper arm is clean. There is no erythema or warmth. There is no tenderness. Test Results: Portable chest x-ray was obtained for line placement. The PICC line goes up into the subclavian vein. There is no acute cardiopulmonary process noted. This was interpreted by the radiologist and myself. Emergency Department Course and Treatment: The PICC line was flushed. The line flushed easily with the patient elevated her arm. Nurse was also able to aspirate blood from the PICC line. I feel that the PICC line is able to be used until she can follow-up. The PICC line was dressed and secured in place. Patient was instructed to follow-up with the PICC line center in 2 to 3 days. Patient understood and was agreeable with the plan. All questions were answered. Disposition: Discharge home Impression: Displaced PICC line This note was generated with [employer] software. It may contain incorrect words, spelling, and punctuation that were not noted in review of the chart prior to signing ED Disposition - Plan for ED Patient: Disposition: Home or Assisted Living Diagnosis: Status post peripherally inserted central catheter (PICC) central line placement Instructions: Picc Line Care Referrals: Eduardo Peters DO [Primary Care Provider] - 3-5 Days Additional Instructions: Follow-up with your PICC line care team in 2 to 3 days. You may continue to use the PICC line.
[2019-09-18 15:21] VITALS: BP 154/76; PULSE 94; RESP 18; O2SAT 98
--- NOTE | 2019-09-18 15:22 | ED.RN ---
THIS NURSE REVIEWED D/C INSTRUCTIONS WITH PT. PT VERBALIZED UNDERSTANDING OF INSTRUCTIONS. PT DENIES FURTHER NEEDS OR QUESTIONS AT THIS TIME
== END 2019-09-18 15:24 | disposition home or self-care (01) ==
PROVIDERS: Emergency Provider Emergency Medicine; Family Provider Student in an Organized Health Care Education/Training Program; PCP Student in an Organized Health Care Education/Training Program
DX: T82.524A Displacement of infusion catheter, initial encounter (principal); A49.02 Methicillin resistant Staphylococcus aureus infection, unspecified site; E03.9 Hypothyroidism, unspecified; Z90.10 Acquired absence of unspecified breast and nipple; Z79.2 Long term (current) use of antibiotics; Z79.899 Other long term (current) drug therapy
CPT/HCPCS: 71045; 99282

== ENCOUNTER → 2019-09-20 09:50 | Outpatient (CLI) | payer MEDICARE, MEDICAID, SELFPAY ==
[2019-09-23 13:36] VITALS: BMI 43.8
[2019-09-27 10:25] LABS: Erythrocyte Sedimentation Rate 57 mm/hr (0-20)
[2019-09-27 10:27] LABS: Hematocrit 40.4 % (37-47); Hemoglobin 12.4 g/dL (12.0-15.0); Mean Corp Hgb Conc 30.7 g/dL (32-36); Mean Corpuscular Hgb 29.5 pg (27.0-32.0); Mean Corpuscular Volume 96.2 fL (81-99); Mean Platelet Vol. 9.8 fl (6.2-12.0); Platelet Count 299 K/mm3 (150-450); RBC Distribution Width CV 14.2 % (11.6-14.6); RBC Distribution Width SD 49.9 fl (35.1-43.9); White Blood Count 6.5 K/mm3 (4.4-11.0)
[2019-09-27 10:46] LABS: ALB/GLOB Ratio 0.9 RATIO (0.9-2.4); AST(SGOT) 23 U/L (15-37); Alanine Aminotransfer ALT/SGPT 36 U/L (13-56); Albumin, Serum 3.6 g/dL (3.2-5.0); Alkaline Phosphatase 92 U/L (45-117); Anion Gap 5 (5-15); BUN 8 mg/dL (7-18); BUN/Creat Ratio 10.9 RATIO (10-20); CRP 5.25 mg/L (0.0-3.0); Calcium,Total 8.7 mg/dL (8.5-10.1); Chloride 105 mmol/L (98-107); Creatinine, Serum 0.73 mg/dL (0.55-1.02); EST Glomerular Filtration Rate 90 mL/min (>60); Est Glom Filt Rate - Afr Amer 109 mL/min (>60); Globulin 3.8 g/dL (2.2-4.2); Glucose 93 mg/dL (74-106); Potassium 4.2 mmol/L (3.5-5.1); Protein, Total 7.4 g/dL (6.4-8.2); Sodium Level 138 mmol/L (136-145); Vancomycin, Trough Level 14.8 ug/mL (5.0-15.0)
== END ==
PROVIDERS: Family Provider Student in an Organized Health Care Education/Training Program; PCP Student in an Organized Health Care Education/Training Program; Referring Provider Surgery; Visit Provider Surgery
DX: T81.41XA Infection following a procedure, superficial incisional surgical site, initial encounter (principal); D64.9 Anemia, unspecified
CPT/HCPCS: 80053; 80202; 85027; 85652; 86140

== ENCOUNTER 2019-09-20 11:54 | Outpatient (RCR) | payer MEDICARE, MEDICAID, SELFPAY ==
[2019-09-20 12:54] LABS: Hematocrit 39.2 % (37-47); Hemoglobin 12.3 g/dL (12.0-15.0); Mean Corp Hgb Conc 31.4 g/dL (32-36); Mean Corpuscular Hgb 30.3 pg (27.0-32.0); Mean Corpuscular Volume 96.6 fL (81-99); Mean Platelet Vol. 10.2 fl (6.2-12.0); Platelet Count 346 K/mm3 (150-450); RBC Distribution Width CV 14.3 % (11.6-14.6); RBC Distribution Width SD 50.8 fl (35.1-43.9); Red Blood Count 4.06 M/mm3 (4.2-5.4); White Blood Count 6.4 K/mm3 (4.4-11.0)
[2019-09-20 13:15] LABS: AST(SGOT) 24 U/L (15-37); Alanine Aminotransfer ALT/SGPT 34 U/L (13-56); Albumin, Serum 3.5 g/dL (3.2-5.0); Alkaline Phosphatase 88 U/L (45-117); Anion Gap 4 (5-15); BUN 8 mg/dL (7-18); BUN/Creat Ratio 11.2 RATIO (10-20); CRP 3.58 mg/L (0.0-3.0); Chloride 104 mmol/L (98-107); Creatinine, Serum 0.71 mg/dL (0.55-1.02); EST Glomerular Filtration Rate 93 mL/min (>60); Est Glom Filt Rate - Afr Amer 112 mL/min (>60); Globulin 3.6 g/dL (2.2-4.2); Glucose 91 mg/dL (74-106); Potassium 4.3 mmol/L (3.5-5.1); Protein, Total 7.1 g/dL (6.4-8.2); Sodium Level 138 mmol/L (136-145)
[2019-09-20 13:41] LABS: Erythrocyte Sedimentation Rate 60 mm/hr (0-20)
[2019-09-21 09:02] LABS: Vancomycin, Trough Level 12.2 ug/mL (5.0-15.0)
== END 2019-09-28 23:59 ==
LOC: LABSPEC 11:54
PROVIDERS: Family Provider Student in an Organized Health Care Education/Training Program; PCP Student in an Organized Health Care Education/Training Program; Referring Provider Surgery; Visit Provider Surgery
DX: T81.41XA Infection following a procedure, superficial incisional surgical site, initial encounter (principal); D64.9 Anemia, unspecified
CPT/HCPCS: 80053; 80202; 85027; 85652; 86140

== ENCOUNTER → 2019-10-11 10:14 | Outpatient (CLI) | payer MEDICARE, MEDICAID, SELFPAY ==
[2019-10-07 13:03] VITALS: BMI 43.8
[2019-10-11 10:25] LABS: Hematocrit 38.1 % (37-47); Hemoglobin 11.7 g/dL (12.0-15.0); Mean Corp Hgb Conc 30.7 g/dL (32-36); Mean Corpuscular Hgb 29.8 pg (27.0-32.0); Mean Corpuscular Volume 96.9 fL (81-99); Platelet Count 269 K/mm3 (150-450); RBC Distribution Width CV 14.2 % (11.6-14.6); RBC Distribution Width SD 51.2 fl (35.1-43.9); Red Blood Count 3.93 M/mm3 (4.2-5.4); White Blood Count 5.3 K/mm3 (4.4-11.0)
[2019-10-11 10:42] LABS: Erythrocyte Sedimentation Rate 43 mm/hr (0-20)
[2019-10-11 10:45] LABS: ALB/GLOB Ratio 0.9 RATIO (0.9-2.4); AST(SGOT) 22 U/L (15-37); Alanine Aminotransfer ALT/SGPT 34 U/L (13-56); Albumin, Serum 3.3 g/dL (3.2-5.0); Alkaline Phosphatase 82 U/L (45-117); Anion Gap 4 (5-15); BUN 9 mg/dL (7-18); Calcium,Total 8.7 mg/dL (8.5-10.1); Chloride 106 mmol/L (98-107); Creatinine, Serum 0.69 mg/dL (0.55-1.02); EST Glomerular Filtration Rate 96 mL/min (>60); Est Glom Filt Rate - Afr Amer 117 mL/min (>60); Globulin 3.5 g/dL (2.2-4.2); Glucose 91 mg/dL (74-106); Potassium 4.3 mmol/L (3.5-5.1); Protein, Total 6.8 g/dL (6.4-8.2); Sodium Level 138 mmol/L (136-145)
[2019-10-11 11:12] LABS: Vancomycin, Trough Level 13.5 ug/mL (5.0-15.0)
== END ==
PROVIDERS: Family Provider Student in an Organized Health Care Education/Training Program; PCP Student in an Organized Health Care Education/Training Program; Referring Provider Surgery; Visit Provider Surgery
DX: A32.7 Listerial sepsis (principal)
CPT/HCPCS: 80053; 80202; 85027; 85652; 86140

== ENCOUNTER → 2019-10-22 13:07 | Outpatient (CLI) | payer MEDICARE, SELFPAY ==
[2019-10-20 13:38] VITALS: BMI 43.8
--- NOTE | 2019-10-22 13:11 | US_ITS ---
STUDY: SUPERFICIAL ULTRASOUND - LEFT CHEST. REASON FOR EXAM: Female, 49 years old. LEFT CHEST CYST PUNCTURE TECHNIQUE: A superficial ultrasound was performed with real-time and static keita-scale imaging. COMPARISON: None. FINDINGS: At the level of the pancreatic uncinate which is a left chest there is an elongated area of nonspecific fluid collection located between the superficial soft tissue layers. Per history, the puncture was not performed by Dr. Bowers due to small amount of fluid. US/Chest IMPRESSION: Small nonspecific area of fluid collection within the superficial soft tissues. Electronically Signed: Renata Souza MD at 1:36 EST , Service support ,
== END ==
LOC: US 13:11
PROVIDERS: PCP Student in an Organized Health Care Education/Training Program; Referring Provider Nurse Practitioner Family; Visit Provider Nurse Practitioner Family
DX: R07.89 Other chest pain (principal); N64.4 Mastodynia; N64.89 Other specified disorders of breast; Z90.13 Acquired absence of bilateral breasts and nipples
CPT/HCPCS: 76604

== ENCOUNTER 2019-11-09 14:00 | Outpatient (RCR) | payer MEDICARE, MEDICAID, SELFPAY ==
[2019-09-23 13:36] VITALS: BMI 43.8
[2019-10-04 10:35] LABS: Erythrocyte Sedimentation Rate 60 mm/hr (0-20)
[2019-10-04 10:38] LABS: Hematocrit 38.5 % (37-47); Hemoglobin 11.8 g/dL (12.0-15.0); Mean Corp Hgb Conc 30.6 g/dL (32-36); Mean Corpuscular Hgb 28.9 pg (27.0-32.0); Mean Corpuscular Volume 94.4 fL (81-99); Platelet Count 273 K/mm3 (150-450); RBC Distribution Width CV 14.1 % (11.6-14.6); RBC Distribution Width SD 49.1 fl (35.1-43.9); Red Blood Count 4.08 M/mm3 (4.2-5.4); White Blood Count 7.2 K/mm3 (4.4-11.0)
[2019-10-04 10:43] LABS: Vancomycin, Trough Level 12.6 ug/mL (5.0-15.0)
[2019-10-04 10:54] LABS: ALB/GLOB Ratio 0.9 RATIO (0.9-2.4); AST(SGOT) 20 U/L (15-37); Alanine Aminotransfer ALT/SGPT 32 U/L (13-56); Albumin, Serum 3.5 g/dL (3.2-5.0); Alkaline Phosphatase 85 U/L (45-117); Anion Gap 5 (5-15); BUN 14 mg/dL (7-18); BUN/Creat Ratio 20.7 RATIO (10-20); CRP 4.94 mg/L (0.0-3.0); Chloride 103 mmol/L (98-107); Creatinine, Serum 0.68 mg/dL (0.55-1.02); EST Glomerular Filtration Rate 99 mL/min (>60); Est Glom Filt Rate - Afr Amer 120 mL/min (>60); Globulin 3.7 g/dL (2.2-4.2); Glucose 90 mg/dL (74-106); Potassium 4.2 mmol/L (3.5-5.1); Protein, Total 7.2 g/dL (6.4-8.2); Sodium Level 137 mmol/L (136-145)
[2019-10-20 13:38] VITALS: BMI 43.8
--- NOTE | 2019-10-25 15:22 | HP.PTEVAL ---
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 Date of Evaluation: 10/25/19 Physical Therapist: DYLAN Schwartz - Visit Plan Frequency: 2x /Week Duration: 4 Weeks Plan: 2X/ week for 4 weeks for L shoulder PROM/AAROM/AROM, L shoulder strengthening, postural exercises, chest wall streching, scapular strengthening, with HEP - Subjective Findings: Dr Henderson is her surgeon. Pt had a h/o breast trama. No breast on the R side for 2 years and no strength in R arm and chest pain and pain in the R arm. She went into septic shock in 2016 and had woud vac. Attempted reconstuction and it failed and she had infection. She had would vacs on the R side. Pt had a L breast masectomy in August 31 and pain in the chest. It is an achy mucle thing.... She has small pockets of fluidin the arm pit area. She wait too long the last time. She has pain in the L arm and chest. She feels even now. She still wears a compression bra. She is currently has L chest pain and into her L arm pit. No lymphedema. She feels like her L shoulder is weal. SHe feels that her posture is poor. It is hard for her to get comfortable to sleep. - Pain L chest pain Pain Intensity (Out of 10): 2 - Objective Pt is R handed R 55# and L 15#. C-spine AROM: Flexion 75%, Ext 75%, SB B 75%, Rot 85%. L shoulder AROM: Flexion 110 degrees, abd 150 degrees, IR to L PSIS, and ER 35 degrees. R shoulder AROM: Flexion 170 degrees, abd 173 degrees, IR T10, ER 74 degrees. L shoulder MMT: flexion 3+/5, abd 3+/5, ER 3-/5 and IR 3-/5. R shoulder MMT: flexion 4/5, abd 4/5, ER 4-/5 and IR 4-/5. L shoulder PROM: more painful end feel with flex and abd, Tight end feel with IR and ER more painful end feel. - Goals Goal 1:: I HEP Goal Time Frame: 2 Weeks Goal 2:: Increase L shoulder AROM to equal that of the R shoulder (at the time of the eval R shoulder R shoulder AROM: Flexion 170 degrees, abd 173) Goal Time Frame: 4-6 Weeks Goal 3:: Increase L shoulder MMT by 1/2 muscle grade (at time of the eval: flexion 3+/5, abd 3+/5, ER 3-/5 and IR 3-/5)/ Goal Time Frame: 4-6 Weeks Goal 4:: Abolish L chest pressure/pain Goal Time Frame: 4-6 Weeks - Rehabilitation Potential Rehabilitation Potential: Good - Anticipated Interventions Patient/Client Instruction: Educate patient on: Condition, Plan of Care For the Purpose of:: To decrease pain, To decrease swelling/inflammation, To increase ROM, To improve nutrient delivery to tissue, To improve muscle performance and motor function, To improve ability to perform ADL's, To increase tolerance to activity/condition/position, To improve performance and independence with ADL's, To improve ability of physical actions for home/community/work/leisure, To improve health of tissue, To decrease soft tissue restriction, To increase flexibility/ROM Therapeutic Exercise to Include: Strength training, Postural training, Flexibilty training, Passive ROM, Active ROM, Scapular Strength/Stabilization For the Purpose of:: To increase ROM, To improve muscle performance and motor function, To improve ability to perform ADL's, To increase tolerance to activity/condition/position, To improve performance and independence with ADL's, To decrease level of supervision to perform tasks, To improve ability of physical actions for home/community/work/leisure, To improve health of tissue, To decrease soft tissue restriction, To increase flexibility/ROM Manual Therapy Techniques to Include: Passive ROM For the Purpose of:: To increase ROM, To improve nutrient delivery to tissue, To improve muscle performance and motor function Thank you for the opportunity to evaluate your patient. For Medicare and Medicare HMO plans, please review the plan of care and approve it. It will need to be FAXED BACK to us at [phone] for Medicare purposes. For Medicare only, by signing this I certify the plan of care. Please let me know if there are questions or concerns regarding this plan of care. Physician Signature: Date:
--- NOTE | 2019-12-07 11:57 | HP.PT.NRP ---
HP - Discharge Summary (1) - Patient Information ROBLES CARRASQUILLO was seen in my office for initial evaluation on 10/25/19. The following Plan of Care was established for this patient: Initial Frequency: 2x /Week Initial Duration: 4 Weeks - Anticipated Interventions Patient/Client Instruction: Educate patient on: Condition, Plan of Care For the Purpose of:: To decrease pain, To decrease swelling/inflammation, To increase ROM, To improve nutrient delivery to tissue, To improve muscle performance and motor function, To improve ability to perform ADL's, To increase tolerance to activity/condition/position, To improve performance and independence with ADL's, To improve ability of physical actions for home/community/work/leisure, To improve health of tissue, To decrease soft tissue restriction, To increase flexibility/ROM Therapeutic Exercise to Include: Strength training, Postural training, Flexibilty training, Passive ROM, Active ROM, Scapular Strength/Stabilization For the Purpose of:: To increase ROM, To improve muscle performance and motor function, To improve ability to perform ADL's, To increase tolerance to activity/condition/position, To improve performance and independence with ADL's, To decrease level of supervision to perform tasks, To improve ability of physical actions for home/community/work/leisure, To improve health of tissue, To decrease soft tissue restriction, To increase flexibility/ROM Manual Therapy Techniques to Include: Passive ROM For the Purpose of:: To increase ROM, To improve nutrient delivery to tissue, To improve muscle performance and motor function This patient was last seen in our office . Pertinent comments regarding their Physical therapy will appear below: At this point I will be discontinuing this patient from physical therapy. I would be happy to see this patient again in the future if found appropriate by the physician. Thank you! Zonia West, MPT
== END 2019-11-09 19:00 | disposition home or self-care (01) ==
LOC: PT 14:00
PROVIDERS: Family Provider Student in an Organized Health Care Education/Training Program; PCP Student in an Organized Health Care Education/Training Program; Referring Provider Nurse Practitioner Family; Visit Provider Nurse Practitioner Family
DX: M25.519 Pain in unspecified shoulder (principal); N64.4 Mastodynia; Z90.13 Acquired absence of bilateral breasts and nipples
CPT/HCPCS: 80053; 80202; 85027; 85652; 86140; 97110; 97162

== ENCOUNTER 2021-12-08 16:22 | Emergency (ER) | payer MEDICARE, SELFPAY ==
[2021-12-08 16:23] VITALS: BP 156/113; PULSE 104; RESP 16; TEMP 36.2; O2SAT 100; BMI 42.9
--- NOTE | 2021-12-08 16:42 | US_ITS ---
INDICATION: RUQ PAIN EXAMINATION: US Abdomen RUQ (limited) TECHNIQUE: Reinoso-scale and color Doppler imaging was performed of the right upper abdominal quadrant. COMPARISON: None. Findings: The liver is diffusely homogenous with overall increased echogenicity. There is no evidence of contour nodularity. No focal hepatic mass is identified. The main portal vein is normal in size and patent demonstrating hepatopetal flow. The gallbladder is remarkable for mobile, layering stones, however is without evidence of wall thickening or pericholecystic fluid. Sonographic Tanner''s tenderness is not appreciated. There is no evidence of intrahepatic biliary ductal dilatation. The CBD is nondilated measuring 5 mm at the level of the jacinto hepatis. The visualized portions of the pancreas are unremarkable without evidence of focal or diffuse enlargement. Specifically, the tail is obscured by overlying bowel gas. Right kidney measures 12.2 cm in length. It is normal in echogenicity. No focal renal lesion is identified. There is no evidence of hydronephrosis. US/Gallbladder IMPRESSION: Hyperechoic liver without evidence of contour nodularity. Findings are nonspecific and may be consistent with sequelae of fatty infiltration or other forms of diffuse liver disease. No evidence of focal hepatic mass. Cholelithiasis without evidence of acute cholecystitis. Electronically Signed: Gene Perla MD at 19:08 EST ,
--- NOTE | 2021-12-08 16:45 | ED.VIS.GI ---
HPI HPI - GI History of Present Illness Chief Complaint: Abd Pain Informant: patient Abdominal Pain/Flank Pain Onset: Yesterday Context: Gradual Onset Timing: Waxes and wanes Quality: Aching Location: RUQ Current Severity: Moderate Maximum Severity: Moderate Worsened by: Nothing Relieved by: Nothing Nausea/Vomiting/Emesis GI Symptom: Positive for Nausea; Negative for Vomiting Diarrhea/Melena/Hematochezia GI Symptom: Positive for Diarrhea; Negative for Melena and Hematochezia Stool Quality: Positive for Loose; Negative for BRB per rectum Severity: Mild Associated Symptoms Associated Symptoms: Negative for Dysuria, Frequency, Hematuria and Urgency Narrative Narrative: Patient having right upper quadrant pain that seem to get better last night but has worsened again today, coming in waves, she has not eaten anything today and unsure if it was worse after a meal yesterday or not, she does not remember. Pain radiates to her right shoulder. No fevers, chills, jaundice, pruritus, rash. Nausea but no vomiting. Multiple prior chest and abdominal surgeries, history is noted and discussed with the patient. She states she has some numbness in her periumbilical/epigastric area, she is not sure why she is getting that but she has had numbness in her chest after having multiple chest surgeries including double mastectomy. States that gallstones were found incidentally at one point. At a postoperative event where she was having pain between her chest and abdomen, she had a HIDA scan because of the gallstones, and it was negative and she did not have a cholecystectomy. This is the only knowledge she has about issues with her gallbladder, so she does not know necessarily what biliary colic feels to her or if she has ever had it before. [facility] Medical History (Updated 12/08/21 @ 19:[address] Jamel Spangler MD) Abscess Anemia Anxiety BREAST LUMP/CYST COMPROMISED BILATERAL BREAST REDUCTION NIPPLE GRAFTS Depression (emotion) Disproportion of reconstructed breast Graves disease Hypertension Hypertriglyceridemia Hypothyroidism (~2001) Metabolic syndrome MRSA (methicillin resistant staph aureus) culture positive NONHEALING SURGICAL WOUND RIGHT BREAST NONHEALING ULCER LEFT BREAST AT VERTICAL INCISION Obesity Ovarian cyst RECURRENT INFECTED ULCER LEFT BREAST RECURRENT NONHEALING INFECTED MRSA ULCER RIGHT BREAST Seasonal allergies Home Medications calcium carbonate-vitamin D3 1 ea PO BID 08/15/15 [History Last Taken 05/01/17] cholecalciferol (vitamin D3) 2,000 unit PO DAILY 08/15/15 [History Last Taken 05/01/17] multivitamin,[id number] 1 tab PO DAILY 08/15/15 [History Last Taken 05/01/17] nortriptyline 50 mg PO QHS 04/03/16 [History Last Taken 04/30/17] bupropion HCl 450 mg PO DAILY 04/18/17 [History Last Taken 05/01/17] polysaccharide iron complex 150 mg PO BID 05/01/17 [History Last Taken 05/01/17] acetaminophen 1,000 mg PO Q8H PRN #1 tab 05/06/17 [Rx Last Taken Unknown] ascorbic acid (vitamin C) 1,000 mg PO BID 12/03/17 [History Last Taken Unknown] fluoxetine 40 mg PO DAILY 12/03/17 [History Last Taken Unknown] magnesium 500 mg PO QHS 12/03/17 [History Last Taken Unknown] zolpidem 10 mg PO QHS PRN 04/07/18 [History Last Taken Unknown] levothyroxine 175 mcg tablet 200 mcg PO DAILY 07/01/18 [History Last Taken Unknown] diphenhydramine HCl 50 mg PO Q6H PRN cap 09/02/19 [Rx Last Taken Unknown] docusate sodium 100 mg PO BID cap 09/02/19 [Rx Last Taken Unknown] dicyclomine 20 mg PO Q4H PRN PRN #20 capsule 12/08/21 [Rx Last Taken Unknown] ondansetron 8 mg PO Q8H PRN PRN #20 tab 12/08/21 [Rx Last Taken Unknown] promethazine [Phenergan] 25 mg PO DAILY PRN PRN 12/08/21 [History Last Taken Unknown] tramadol 50 mg PO Q4H PRN PRN 2 Days #10 tab 12/08/21 [Rx Last Taken Unknown] Allergy/AdvReac Type Severity Reaction Status Date / Time codeine Allergy Rash Verified 12/08/21 16:25 Penicillins Allergy Rash Verified 12/08/21 16:25 NSAIDS (Non-Steroidal AdvReac Other Verified 12/08/21 16:25 Anti-Inflamma Family History Father , FROM MRSA AT AGE 50 Hypertension Hyperlipidemia Acute depression Diabetes Mother Asthma Grandmother Diabetes Heart disease Grandmother Hypertension Diabetes Grandfather Parkinson disease Brother Asthma Aunt Thyroid cancer Uncle Thyroid cancer Surgical History BILATERAL BREAST REDUCTION MAMMAPLASTY COMPLETE THYROIDECTOMY DUE TO GRAVES' DISEASE (~11/2001) Delivered by section EXCISIONAL DEBRIDEMENT RECURRENT NONHEALING INFECTED MRSA EXCISIONL DEBRIDEMENT NONHEALING RECURRENT INFECTED ULCER Gastric bypass status for obesity HERNIA REPAIR WITH MESH (~2014) History of bilateral ligation of fallopian tubes (~2000) History of incisional hernia repair (07/03/10) History of tonsillectomy (~12/2003) INCISION AND DRAINAGE BREAST ABSCESS MASTOTOMY RIGHT BREAST PANICULECTOMY (~04/2013) S/P complete hysterectomy SURGICAL PREPARATION AND REVISION BREAST RECONSTRUCTION SURGICAL PREPARATION LEFT BREAST WITH MASTECTOMY SURGICAL PREPARATION RIGHT BREAST Social History household members: significant other and children number of children: 2 current occupational status: unemployed Smoking Status: Former smoker second hand exposure: No alcohol intake: current details: BEER seatbelt use: always do you feel safe at home: Yes additional social history: SUN EXPOSURE: OCCASIONALLY ROS ROS ED Constitutional Constitutional ED: Denies chills or fever(s) Eyes Eyes: Denies change in vision or diplopia ENT ENT ED: Denies rhinorrhea or sore throat Cardiovascular Cardiovascular: Denies chest pain or palpitations Respiratory/Chest Respiratory/Chest: Denies cough or dyspnea Gastrointestinal Gastrointestinal: Reports as per HPI, abdominal pain, diarrhea and nausea; Denies vomiting Genitourinary Genitourinary ED: Denies dysuria or hematuria Musculoskeletal Musculoskeletal: Denies back pain or neck pain Integumentary Denies abscess or rash Neurologic Neurologic: Reports as per HPI and numbness; Denies headache(s) or weakness Psychiatric Psychiatric: Denies anxiety or suicidal thoughts EXAM Physical Exam Const Vital Signs: 12/08/21 16:23 12/08/21 18:54 12/08/21 19:57 Temperature 97.2 F L Temperature Source Temporal Pulse Rate 104 H 84 Respiratory Rate 16 16 16 Blood Pressure 156/113 H 114/91 H Blood Pressure Mean 127 98 Pulse Ox 100 99 Oxygen Delivery Method Room Air Room Air Positive well nourished, well developed and obese General Appearance ED: well developed and NAD Nutritional Appearance: obese HEENT Reports moist mucous membranes normocephalic and atraumatic Eyes PERRL and EOMs intact bilaterally Neck full ROM and supple Resp normal respiratory effort and clear to auscultation bilaterally Cardio regular rate, regular rhythm and no murmurs GI non-distended GI Narrative: Very tender in right upper quadrant, less tender in epigastrium and right lower quadrant/mid abdomen. Otherwise nontender. No guarding or rebound. Auscultation: normoactive bowel sounds Palpation: soft Back/Spine no CVA tenderness General Back: other FROM Extremity normal to inspection General Extremety ED: Negative for edema, pulses abnormal or tenderness General Extremity: Negative for edema or pulses abnormal Neuro oriented x3, CN's II-XII intact bilaterally and no sensory deficits noted Sensorium / Orientation: awake and alert Motor Exam: strength 5/5 throughout Skin no rashes or lesions noted and no wounds MDM MDM MDM Narrative Medical decision making narrative: With patient's point of maximal tenderness in the right upper quadrant, ultrasound of the gallbladder was performed especially since we already knew she had a history of stones, in addition to lab work. The labs are normal, showing a white blood count of 7.1 with no left shift and the liver enzymes are all within normal limits including the lipase. Ultrasound shows cholelithiasis without evidence of cholecystitis, and images that are consistent with fatty infiltration of the liver. Clinically she was treated with gentle IV fluids, Zofran, Toradol, morphine, she felt much better on reevaluation, however her pain started to come back but it was more periumbilical and felt like pressure there in the epigastrium. Therefore after discussing more and reexamining her (RUQ nontender), she was given a GI cocktail and an injection of Bentyl. This really helped her discomfort. We will discharge her with Bentyl, some tramadol, and Zofran to use as needed, follow-up advised we discussed reasons to return she is comfortable with that plan. Lab Data Attestation: I reviewed the patient's lab results. Labs: Laboratory Results - last 24 hr 12/08/21 12/08/21 12/08/21 16:34 16:43 17:00 WBC 7.1 RBC 4.18 L Hgb 13.1 Hct 40.7 MCV 97.4 MCH 31.3 MCHC 32.2 RDW Std Deviation 49.5 H RDW Coeff of Pratik 13.8 Plt Count 257 MPV 10.3 Immature Gran % (Auto) 0.400 Neut % (Auto) 65.0 Lymph % (Auto) 28.3 [place] % (Auto) 4.8 Eos % (Auto) 1.1 Baso % (Auto) 0.4 Absolute Neuts (auto) 4.6 Absolute Lymphs (auto) 2.01 Nucleated RBC % 0 Sodium Cancelled Potassium Cancelled Chloride Cancelled Carbon Dioxide Cancelled Anion Gap Cancelled BUN Cancelled Creatinine Cancelled Estim Creat Clear Calc Cancelled Est GFR (MDRD) Af Amer Cancelled Est GFR (MDRD) Non-Af Cancelled BUN/Creatinine Ratio Cancelled Glucose Cancelled Calcium Cancelled Total Bilirubin Cancelled AST Cancelled ALT Cancelled Alkaline Phosphatase Cancelled Total Protein Cancelled Albumin Cancelled Globulin Cancelled Albumin/Globulin Ratio Cancelled Lipase Cancelled Urine Color Yellow Urine Clarity Clear Urine pH 6.5 Ur Specific [place] 1.010 Urine Protein Negative Urine Glucose (UA) Normal Urine Ketones Negative Urine Occult Blood Negative Urine Nitrite Negative Urine Bilirubin Negative Urine Urobilinogen Normal Ur Leukocyte Esterase Negative Urine RBC 0 SEEN Urine WBC 0 SEEN Ur Squamous Epith Cells 0 SEEN Urine Bacteria 0 SEEN Urine Mucus 0 SEEN 12/08/21 17:00 WBC RBC Hgb Hct MCV MCH MCHC RDW Std Deviation RDW Coeff of Pratik Plt Count MPV Immature Gran % (Auto) Neut % (Auto) Lymph % (Auto) [place] % (Auto) Eos % (Auto) Baso % (Auto) Absolute Neuts (auto) Absolute Lymphs (auto) Nucleated RBC % Sodium 140 Potassium 5.5 H Chloride 108 H Carbon Dioxide 28.0 Anion Gap 4 L BUN 11 Creatinine 0.76 Estim Creat Clear Calc 83.82 Est GFR (MDRD) Af Amer 104 Est GFR (MDRD) Non-Af 86 BUN/Creatinine Ratio 14.5 Glucose 85 Calcium 9.4 Total Bilirubin 0.40 AST 47 H ALT 30 Alkaline Phosphatase 64 Total Protein 7.4 Albumin 3.7 Globulin 3.7 Albumin/Globulin Ratio 1.0 Lipase 172 Urine Color Urine Clarity Urine pH Ur Specific [place] Urine Protein Urine Glucose (UA) Urine Ketones Urine Occult Blood Urine Nitrite Urine Bilirubin Urine Urobilinogen Ur Leukocyte Esterase Urine RBC Urine WBC Ur Squamous Epith Cells Urine Bacteria Urine Mucus Radiography Diagnostic Testing: Clinical Impression(s) from Imaging Studies Gallbladder Ultrasound 12/08/21 16:42 IMPRESSION: Hyperechoic liver without evidence of contour nodularity. Findings are nonspecific and may be consistent with sequelae of fatty infiltration or other forms of diffuse liver disease. No evidence of focal hepatic mass. Cholelithiasis without evidence of acute cholecystitis. Electronically Signed: Gene Perla MD at 19:08 EST , Discharge Plan Triage Chief Complaint: Abd Pain ED Provider: Jamel Spangler Dx/Rx/DC Orders Clinical Impression: Acute upper abdominal pain, Cholelithiasis Instructions: Abdominal Pain Prescriptions: New ondansetron [ondansetron] 4 MG tablet 8 mg PO Q8H PRN PRN (Reason: Nausea) Qty: 20 RF: 0 tramadol 50 MG tablet 50 mg PO Q4H PRN PRN (Reason: Pain) 2 Days Qty: 10 RF: 0 dicyclomine 10 MG capsule 20 mg PO Q4H PRN PRN (Reason: abdominal discomfort) Qty: 20 RF: 0 No Action levothyroxine 175 mcg tablet 200 mcg PO DAILY RF: 0 multivitamin,[id number] 1 TABLET tablet 1 tab PO DAILY RF: 0 cholecalciferol (vitamin D3) 1,000 UNIT tablet 2,000 unit PO DAILY RF: 0 calcium carbonate-vitamin D3 1 EACH tablet 1 ea PO BID RF: 0 nortriptyline 50 MG capsule 50 mg PO QHS RF: 0 bupropion HCl 300 MG tablet extended release 24 hr 450 mg PO DAILY RF: 0 polysaccharide iron complex 150 MG capsule 150 mg PO BID RF: 0 acetaminophen 500 MG tablet 1,000 mg PO Q8H PRN (Reason: Pain) Qty: 1 RF: 0 ascorbic acid (vitamin C) 1,000 MG tablet 1,000 mg PO BID RF: 0 magnesium 250 MG tablet 500 mg PO QHS RF: 0 fluoxetine 20 MG capsule 40 mg PO DAILY RF: 0 zolpidem 10 MG tablet 10 mg PO QHS PRN (Reason: Sleep) RF: 0 diphenhydramine HCl 25 MG capsule 50 mg PO Q6H PRN (Reason: Itching) RF: 0 docusate sodium 100 MG capsule 100 mg PO BID RF: 0 promethazine [Phenergan] 12.5 mg Tablet 25 mg PO DAILY PRN PRN (Reason: Nausea) RF: 0 Primary Care Provider: Eduardo Peters Referrals: Jonn Pedroza MD [STAFF PHYSICIAN] - 3-5 Days if not improving Eduardo Peters DO [Primary Care Provider] - Disposition Disposition: Home, Self Care
[2021-12-08] MEDS: Ketorolac 15 MG/ML Vial IV (16:52)
[2021-12-08] MEDS: Morphine 4 MG/ML Syringe IV (16:53)
[2021-12-08] MEDS: Ondansetron 4 MG/2 ML Vial IV (16:53)
[2021-12-08 16:57] LABS: Bacteria 0 SEEN /hpf (None Seen); Mucous, Urine 0 SEEN /hpf (<or=2+); Red Blood Cells-Urine 0 SEEN /hpf (0-5); Squamous Epithelial Cells - UA 0 SEEN /hpf (5-10); White Blood Cells 0 SEEN /hpf (0-5)
[2021-12-08 16:58] LABS: Color, Urine Yellow (Yellow); Glucose, Dipstick Normal (Normal); Ketone-Dipstick Negative (Negative); Leukocyte Esterase-Dipstick Negative /ul (Negative); Nitrite-Dipstick Negative (Negative); Occult Blood-Urine Negative /ul (Negative); Protein-Dipstick Negative (Negative); Urine Bilirubin Dipstick Negative (Negative); Urine Clarity Clear (Clear); Urine Urobilinogen Normal (Normal); Urine pH 6.5 (5.0 - 8.0)
[2021-12-08] MEDS: 0.9% Normal Saline 1,000 ML 125 ML IV (17:14)
[2021-12-08 17:23] LABS: Absolute Lymphocyte Count 2.01 X10^3/uL (0.83-4.51); Absolute Neutrophil Count 4.6 X10^3/uL (2.0-7.7); Basophil# 0.03 X10^3/uL; Basophil% 0.4 % (0-1); Eosinophil# 0.08 X10^3/uL; Eosinophils% 1.1 % (0-5); Hematocrit 40.7 % (37-47); Hemoglobin 13.1 g/dL (12.0-15.0); Lymphocyte # 2.01 X10^3/ul (0.83-4.51); Lymphocyte % 28.3 % (19-41); Mean Corp Hgb Conc 32.2 g/dL (32-36); Mean Corpuscular Hgb 31.3 pg (27.0-32.0); Mean Corpuscular Volume 97.4 fL (81-99); Mean Platelet Vol. 10.3 fl (6.2-12.0); Monocyte# 0.34 X10^3/uL; Monocyte% 4.8 % (0-10); NRBC Flagged by Analyzer 0 % (0-5); Platelet Count 257 K/mm3 (150-450); RBC Distribution Width CV 13.8 % (11.6-14.6); RBC Distribution Width SD 49.5 fl (35.1-43.9); Red Blood Count 4.18 M/mm3 (4.2-5.4); White Blood Count 7.1 K/mm3 (4.4-11.0)
[2021-12-08 17:45] LABS: AST(SGOT) 47 U/L (15-37); Alanine Aminotransfer ALT/SGPT 30 U/L (13-56); Albumin, Serum 3.7 g/dL (3.2-5.0); Alkaline Phosphatase 64 U/L (45-117); Anion Gap 4 (5-15); BUN 11 mg/dL (7-18); BUN/Creat Ratio 14.5 RATIO (10-20); Calcium,Total 9.4 mg/dL (8.5-10.1); Chloride 108 mmol/L (98-107); Creatinine, Serum 0.76 mg/dL (0.55-1.02); EST Glomerular Filtration Rate 86 mL/min (>60); Est Glom Filt Rate - Afr Amer 104 mL/min (>60); Estimated Creatinine Clearance 83.82 ml/min; Globulin 3.7 g/dL (2.2-4.2); Glucose 85 mg/dL (74-106); Lipase 172 U/L (73-393); Potassium 5.5 mmol/L (3.5-5.1); Protein, Total 7.4 g/dL (6.4-8.2); Sodium Level 140 mmol/L (136-145)
[2021-12-08 18:54] VITALS: RESP 16
[2021-12-08] MEDS: Mag Hydrox/Al Hydrox/Simeth 30 ML UDC PO (19:09)
[2021-12-08] MEDS: Dicyclomine 20 MG/2 ML Vial IM (19:09)
[2021-12-08 19:57] VITALS: BP 114/91; PULSE 84; RESP 16; O2SAT 99
[2021-12-08 20:12] VITALS: BP 114/91; PULSE 84; RESP 16; O2SAT 99
== END 2021-12-08 20:14 | disposition home or self-care (01) ==
PROVIDERS: Emergency Provider Emergency Medicine; PCP Student in an Organized Health Care Education/Training Program; Visit Provider Emergency Medicine
DX: R10.11 Right upper quadrant pain (principal); K80.20 Calculus of gallbladder without cholecystitis without obstruction; E66.9 Obesity, unspecified; F41.9 Anxiety disorder, unspecified; E03.9 Hypothyroidism, unspecified; F32.A Depression, unspecified; Z87.891 Personal history of nicotine dependence; Z79.899 Other long term (current) drug therapy
CPT/HCPCS: 76705; 80053; 81001; 83690; 85025; 96372; 96374; 96375; 99285; J7030; J2405